=== PATIENT | female | born 1950 | race Caucasian/White ===

== ENCOUNTER 2017-03-09 15:32 | Inpatient (IN) ==
[~2017-03-09 15:32] MED LIST: Aminoglycoside Consult 1 EACH MC ONE
[2017-03-09 16:40] LABS: VBG PH 7.37 pH Units (7.32-7.42)
[2017-03-09 16:41] LABS: Red Cell Distribution Width 14.7 % (11.5-14.5)
[2017-03-09 16:43] LABS: Hematocrit 37.6 % (35.3-44.9); Mean Corpuscular HGB Conc 31.9 g/dL (31.6-35.5); Mean Corpuscular Hemoglobin 29.1 pg (28.0-33.3); Mean Platelet Volume 11.1 fL (9.4-12.4); Nucleated Red Blood Cells 0.1 /100 WBC (0); Platelet Count 146 K/mcL (140-400); Red Blood Count 4.13 M/mcL (3.82-4.97)
[2017-03-09 16:46] LABS: INR 1.1; Prothrombin Time 11.9 Seconds (9.4-12.1)
[2017-03-09] MEDS ORDERED: Levofloxacin 750 MG/150 ML 750 MG/150 ML BAG IVPB ONE (16:46)
[2017-03-09 16:58] LABS: Albumin 3.7 g/dL (3.5-5.0); Albumin/Globulin Ratio 1.2 (1.1-2.2); Bilirubin,Direct 0.2 mg/dL (0.0-0.5); Bilirubin,Indirect 0.3 mg/dL (0.0-1.2); Bilirubin,Total 0.5 mg/dL (0.2-1.2); Calcium 9.7 mg/dL (8.6-10.8); Magnesium 1.1 mg/dL (1.6-2.6); Phosphorous 1.9 mg/dL (2.3-4.7); Potassium 4.4 mEq/L (3.5-4.5); Total Protein 6.7 g/dL (6.0-8.3)
[2017-03-09 17:02] LABS: Lymphocytes # 20.4 K/mcL (0.6-4.6); Monocytes # 0.6 K/mcL (0.0-1.3); Neutrophils # 10.8 K/mcL (1.6-8.9); Platelet Estimate Normal (Normal)
[2017-03-09] MEDS: 0.9 % Sodium Chloride 1,000 ML IVC SCH ×4 (17:18→21:42)
--- NOTE | 2017-03-09 17:22 | Emergency Department Note ---
Disposition Clinical Impression: Severe sepsis Community acquired pneumonia Qualifiers: Laterality: right Lung location: middle lobe of lung Qualified Code(s): J18.1 - Lobar pneumonia, unspecified organism Disposition: Admitted As Inpatient Condition: Critical Referrals: Mariaelena Vasquez CNP [Primary Care Provider] - Forms: ED Satisfaction Letter Time of Disposition: 17:39 Nausea/Vomiting/Diarrhea HPI - General Chief complaint: ED Nausea/Vomiting/Diarrhea Stated complaint: N/V/D Time Seen by Provider: 03/09/17 15:36 Source: patient Mode of arrival: EMS Limitations: no limitations Nursing Notes Reviewed: Yes Vital Signs Reviewed: Yes - History of Present Illness HPI Narrative: 66-year-old female history of insulin-dependent diabetes, hyperlipidemia, CLL, presents with several days of worsening productive cough, today she went to [facility] urgent care she is having productive cough associated with nausea and vomiting. She has generalized abdominal pain that she describes as 3 out of 10 and cramping. She states that the urgent care told her to come to the emergency department to be evaluated because she had a high fever and they are worried that she was very ill. Patient states that she has noted known history of DKA. She thinks that she has the flu. She describes generalized muscle aches, she endorses some intermittent chest discomfort, abdominal pain, myalgias. She reports nausea with vomiting. She denies hemoptysis or leg swelling, denies hematuria hematochezia or melena. Pt Subjective Complaint: nausea, vomiting Onset (ago): day(s) Description of emesis: food contents Associated Abdominal Pain: Yes If pain, Location of pain: diffuse Severity: mild Severity scale (1-10): 3 Quality: cramping Associated symptoms: Reports: denies other symptoms, nausea/vomiting. Denies: myalgias, chest pain, cough, diaphoresis - Related Data Home Medications Medication Instructions Recorded Confirmed Aspirin 81 mg PO DAILY 04/05/15 05/29/16 Atorvastatin [Lipitor] 40 mg PO DAILY 04/05/15 05/29/16 Enalapril Maleate [Vasotec] 5 mg PO DAILY 04/05/15 05/29/16 Insulin LISPRO [HumaLOG] 0 units SQ TIDAC 04/05/15 05/29/16 Pioglitazone HCl [Actos] 15 mg PO DAILY 04/05/15 05/29/16 Topiramate [Topamax] 25 mg PO BID 08/23/15 05/29/16 Ergocalciferol (VITAMIN D2) 50,000 unit PO WE 02/28/16 05/29/16 [Vitamin D2 (50,000 UNIT)] Loperamide HCl [Imodium A-D] 2 mg PO AD PRN 02/28/16 05/29/16 Primidone [Mysoline] 50 mg PO HS 02/28/16 05/29/16 Ascorbic Acid [Vitamin C] 500 mg PO DAILY 03/06/16 05/29/16 Cyanocobalamin (Vitamin B-12) 100 mcg PO DAILY 03/06/16 05/29/16 [Vitamin B-12] Ferrous Sulfate [Iron] 325 mg PO DAILY 03/06/16 05/29/16 Fluticasone Propionate Nasal 2 spray NS DAILY 11/26/16 11/26/16 [Flonase] Insulin Glargine/Lixisenatide 54 unit SQ DAILY 11/26/16 11/26/16 [Soliqua 100 Unit-33 Mcg/ml Pen] Loratadine [Claritin] 10 mg PO DAILY 11/26/16 11/26/16 Magnesium Chloride [Slow-Mag] 84 mg PO DAILY 11/26/16 11/26/16 Metoprolol [Lopressor] 25 mg PO DAILY 11/26/16 11/26/16 Pregabalin [Lyrica] 75 mg PO TID 11/26/16 11/26/16 Tramadol HCl [Ultram] 50 mg PO TID 11/26/16 11/26/16 Previous Rx's Medication Instructions Recorded Folic Acid 1 mg PO DAILY #30 tablet 09/18/15 Mag Hydrox/Al Hydrox/Simeth 30 ml PO Q4H PRN #1 kit 03/12/16 [Maalox] Omeprazole [PriLOSEC] 40 mg PO DAILY@0630 #20 capsule. 03/12/16 Allergies Allergy/AdvReac Type Severity Reaction Status Date / Time metformin Allergy Nausea Verified 03/09/17 15:34 Sulfa (Sulfonamide Allergy Nausea Verified 03/09/17 15:34 Antibiotics) sulfamethoxazole Allergy Nausea Verified 03/09/17 15:34 [From Bactrim] trimethoprim [From Bactrim] Allergy Nausea Verified 03/09/17 15:34 All systems ED: reviewed and negative except as stated. Review of Systems: As Per HPI Constitutional: Denies: fever, chills Eyes: Denies: eye pain ENT ED: Denies: ear pain Cardiovascular: Reports: as per HPI, chest pain Respiratory: Reports: cough Gastrointestinal: Reports: as per HPI, abdominal pain, nausea, vomiting Genitourinary: Reports: urgency Musculoskeletal: Denies: back pain Integumentary: Denies: rash Neurological: Denies: headache Past Medical History - Past Medical History Attestation: Yes The following information was validated with the patient. 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 history: Reports: no ASSOCIATE PROFESSOR OF ANTHROPOLOGY history - Social History Smoking Status: Never smoker Smokeless Tobacco Status: No Alcohol use: Reports: none Drug use: Reports: none Physical Exam Constitutional: Obese female appears diaphoretic and uncomfortable, Eyes: PERRLA, sclera anicteric ENT & Mouth: MM dry Neck: normal inspection, neck is supple Resp: CTA bilaterally, no resp distress CV: RRR, no m/g/r GI: normal inspection, soft, no guarding or rigidity Neuro: A&O3, CNII-XII grossly intact, FIORE Skin: on limited exam, skin intact with no rashes or lesions - General Limitations: no limitations General appearance: alert, in no apparent distress Course Course Narrative: 66-year-old insulin-dependent diabetic with acute onset of productive cough for the last couple days worsening today so she with nausea and vomiting, concern is for sepsis given that she is tachycardic tachypneic and febrile, she does have a history of CLL as well, so I ordered a full septic workup 3 L bolus initially and will plan to start respiratory antibiotics after blood cultures and lactate - Reevaluation(s) Reevaluation #1: Patient had evidence of right middle lobe pneumonia, suspect immediately required related to stress with the hospitalist Dr. Foss recommended broadening the patient's antibodies at this time, patient will be given Vanc and Levaquin, the Levaquin was already started will add additional antibiotics at the hospitalist recommendation though we suspect community-acquired pneumonia. Patient's lactate was elevated greater than 2 meets criteria for severe sepsis technically she has no evidence of hypotension. Time: 17:38 Reevaluation #2: Severe Sepsis/Septic Shock Re-Evaluation: I reassessed the patient's volume status and tissue perfusion, performing a full cardiopulmonary exam, skin examination, peripheral pulses evaluation, I assessed their vital signs and capillary refill, and based on my findings found that the patient was volume responsive to their 30mL/kg crystalloid bolus. Time: 17:38 Vital Signs Temperature 101.2 F H 03/09/17 15:34 Pulse Rate 122 03/09/17 15:34 Respiratory Rate 24 03/09/17 15:34 Blood Pressure 112/84 03/09/17 15:34 O2 Sat by Pulse Oximetry 96 03/09/17 15:34 Temperature 101.2 F H 03/09/17 15:34 Pulse Rate 122 03/09/17 15:34 Respiratory Rate 24 03/09/17 15:34 Blood Pressure 112/84 03/09/17 15:34 O2 Sat by Pulse Oximetry 97 03/09/17 17:16 Oxygen Delivery Oxygen Delivery Nasal Cannula Nausea/Vomiting/Diarrhea - Lab Data Result diagrams: 03/09/17 16:31 03/09/17 16:31 Lab Results 03/09/17 03/09/17 03/09/17 Range/Units 16:31 16:31 16:31 WBC 31.8 H* (4.3-11.1) K/mcL RBC 4.13 (3.82-4.97) M/mcL Hgb 12.0 (11.5-15.4) g/dL Hct 37.6 (35.3-44.9) % MCV 91.0 (83.0-100.0) fL MCH 29.1 (28.0-33.3) pg MCHC 31.9 (31.6-35.5) g/dL RDW 14.7 H (11.5-14.5) % Plt Count 146 (140-400) K/mcL MPV 11.1 (9.4-12.4) fL Seg Neutrophils % 34.0 % Lymphocytes % 64.0 % Monocytes % 2.0 % Neutrophils # 10.8 H (1.6-8.9) K/mcL Lymphocytes # 20.4 H (0.6-4.6) K/mcL Monocytes # 0.6 (0.0-1.3) K/mcL Nucleated RBCs/100 WBC 0.1 H (0) /100 WBC Platelet Estimate Normal (Normal) PT 11.9 (9.4-12.1) Seconds INR 1.1 APTT 28.0 (26.0-36.0) Seconds VBG pH (7.32-7.42) pH Units VBG pCO2 (41-51) mmHg VBG pO2 (25-40) mmHg VBG HCO3 (21-27) mEq/L Sodium 140 (136-145) mEq/L Potassium 4.4 (3.5-4.5) mEq/L Chloride 105 (98-109) mEq/L Carbon Dioxide 24 (19-29) mEq/L BUN 20 (7-20) mg/dL Creatinine 1.15 H (0.57-1.11) mg/dL Est GFR ( Amer) 57 L (> 60) Est GFR (Non-Af Amer) 47 L (> 60) BUN/Creatinine Ratio 17 (6-26) Glucose 186 H (70-99) mg/dL Calculated Osmolality 297 (280-300) Lactic Acid (0.5-2.2) mmol/L Calcium 9.7 (8.6-10.8) mg/dL Phosphorus 1.9 L (2.3-4.7) mg/dL Magnesium 1.1 L (1.6-2.6) mg/dL Total Bilirubin 0.5 (0.2-1.2) mg/dL Direct Bilirubin 0.2 (0.0-0.5) mg/dL Indirect Bilirubin 0.3 (0.0-1.2) mg/dL AST 10 (5-34) Units/L ALT 10 (0-55) Units/L Alkaline Phosphatase 101 (38-126) Units/L Troponin I (0-0.03) ng/mL Serum Total Protein 6.7 (6.0-8.3) g/dL Albumin 3.7 (3.5-5.0) g/dL Globulin 3.0 (2.4-3.5) g/dL Albumin/Globulin Ratio 1.2 (1.1-2.2) Lipase 20 (8-78) Units/L Beta-Hydroxybutyric Acd (0.02-0.27) mmol/L Urine Color (Yellow) Urine Clarity (Clear) Urine pH (5.0-8.0) pH Units Ur Specific [place] (1.010-1.025) Urine Protein (Neg-Trace) mg/dL Urine Glucose (UA) (Normal) mg/dL Urine Ketones (Negative) mg/dL Urine Blood (Negative) Urine Nitrite (Negative) Urine Bilirubin (Negative) Urine Urobilinogen (Normal) mg/dL Ur Leukocyte Esterase (Negative) Urine Microscopic RBC (0-3) per hpf Urine Microscopic WBC (0-3) per hpf Ur Squamous Epith Cells (None-Few) per lpf Urine Bacteria (None-Few) per hpf Hyaline Casts (None-Few) per lpf Ur Culture Indicated? (NO) 03/09/17 03/09/17 03/09/17 Range/Units 16:31 16:31 16:31 WBC (4.3-11.1) K/mcL RBC (3.82-4.97) M/mcL Hgb (11.5-15.4) g/dL Hct (35.3-44.9) % MCV (83.0-100.0) fL MCH (28.0-33.3) pg MCHC (31.6-35.5) g/dL RDW (11.5-14.5) % Plt Count (140-400) K/mcL MPV (9.4-12.4) fL Seg Neutrophils % % Lymphocytes % % Monocytes % % Neutrophils # (1.6-8.9) K/mcL Lymphocytes # (0.6-4.6) K/mcL Monocytes # (0.0-1.3) K/mcL Nucleated RBCs/100 WBC (0) /100 WBC Platelet Estimate (Normal) PT (9.4-12.1) Seconds INR APTT (26.0-36.0) Seconds VBG pH (7.32-7.42) pH Units VBG pCO2 (41-51) mmHg VBG pO2 (25-40) mmHg VBG HCO3 (21-27) mEq/L Sodium (136-145) mEq/L Potassium (3.5-4.5) mEq/L Chloride (98-109) mEq/L Carbon Dioxide (19-29) mEq/L BUN (7-20) mg/dL Creatinine (0.57-1.11) mg/dL Est GFR ( Amer) (> 60) Est GFR (Non-Af Amer) (> 60) BUN/Creatinine Ratio (6-26) Glucose (70-99) mg/dL Calculated Osmolality (280-300) Lactic Acid 2.6 H (0.5-2.2) mmol/L Calcium (8.6-10.8) mg/dL Phosphorus (2.3-4.7) mg/dL Magnesium (1.6-2.6) mg/dL Total Bilirubin (0.2-1.2) mg/dL Direct Bilirubin (0.0-0.5) mg/dL Indirect Bilirubin (0.0-1.2) mg/dL AST (5-34) Units/L ALT (0-55) Units/L Alkaline Phosphatase (38-126) Units/L Troponin I 0.00 (0-0.03) ng/mL Serum Total Protein (6.0-8.3) g/dL Albumin (3.5-5.0) g/dL Globulin (2.4-3.5) g/dL Albumin/Globulin Ratio (1.1-2.2) Lipase (8-78) Units/L Beta-Hydroxybutyric Acd 0.18 (0.02-0.27) mmol/L Urine Color (Yellow) Urine Clarity (Clear) Urine pH (5.0-8.0) pH Units Ur Specific [place] (1.010-1.025) Urine Protein (Neg-Trace) mg/dL Urine Glucose (UA) (Normal) mg/dL Urine Ketones (Negative) mg/dL Urine Blood (Negative) Urine Nitrite (Negative) Urine Bilirubin (Negative) Urine Urobilinogen (Normal) mg/dL Ur Leukocyte Esterase (Negative) Urine Microscopic RBC (0-3) per hpf Urine Microscopic WBC (0-3) per hpf Ur Squamous Epith Cells (None-Few) per lpf Urine Bacteria (None-Few) per hpf Hyaline Casts (None-Few) per lpf Ur Culture Indicated? (NO) 03/09/17 03/09/17 Range/Units 16:31 17:45 WBC (4.3-11.1) K/mcL RBC (3.82-4.97) M/mcL Hgb (11.5-15.4) g/dL Hct (35.3-44.9) % MCV (83.0-100.0) fL MCH (28.0-33.3) pg MCHC (31.6-35.5) g/dL RDW (11.5-14.5) % Plt Count (140-400) K/mcL MPV (9.4-12.4) fL Seg Neutrophils % % Lymphocytes % % Monocytes % % Neutrophils # (1.6-8.9) K/mcL Lymphocytes # (0.6-4.6) K/mcL Monocytes # (0.0-1.3) K/mcL Nucleated RBCs/100 WBC (0) /100 WBC Platelet Estimate (Normal) PT (9.4-12.1) Seconds INR APTT (26.0-36.0) Seconds VBG pH 7.37 (7.32-7.42) pH Units VBG pCO2 46 (41-51) mmHg VBG pO2 41 H (25-40) mmHg VBG HCO3 27 (21-27) mEq/L Sodium (136-145) mEq/L Potassium (3.5-4.5) mEq/L Chloride (98-109) mEq/L Carbon Dioxide (19-29) mEq/L BUN (7-20) mg/dL Creatinine (0.57-1.11) mg/dL Est GFR ( Amer) (> 60) Est GFR (Non-Af Amer) (> 60) BUN/Creatinine Ratio (6-26) Glucose (70-99) mg/dL Calculated Osmolality (280-300) Lactic Acid (0.5-2.2) mmol/L Calcium (8.6-10.8) mg/dL Phosphorus (2.3-4.7) mg/dL Magnesium (1.6-2.6) mg/dL Total Bilirubin (0.2-1.2) mg/dL Direct Bilirubin (0.0-0.5) mg/dL Indirect Bilirubin (0.0-1.2) mg/dL AST (5-34) Units/L ALT (0-55) Units/L Alkaline Phosphatase (38-126) Units/L Troponin I (0-0.03) ng/mL Serum Total Protein (6.0-8.3) g/dL Albumin (3.5-5.0) g/dL Globulin (2.4-3.5) g/dL Albumin/Globulin Ratio (1.1-2.2) Lipase (8-78) Units/L Beta-Hydroxybutyric Acd (0.02-0.27) mmol/L Urine Color Yellow (Yellow) Urine Clarity Clear (Clear) Urine pH 5.5 (5.0-8.0) pH Units Ur Specific [place] 1.020 (1.010-1.025) Urine Protein Negative (Neg-Trace) mg/dL Urine Glucose (UA) Normal (Normal) mg/dL Urine Ketones Negative (Negative) mg/dL Urine Blood Negative (Negative) Urine Nitrite Negative (Negative) Urine Bilirubin Negative (Negative) Urine Urobilinogen Normal (Normal) mg/dL Ur Leukocyte Esterase Small H (Negative) Urine Microscopic RBC 0-3 (0-3) per hpf Urine Microscopic WBC 3-5 H (0-3) per hpf Ur Squamous Epith Cells Many H (None-Few) per lpf Urine Bacteria None Seen (None-Few) per hpf Hyaline Casts None Seen (None-Few) per lpf Ur Culture Indicated? YES A (NO) - Radiology Data Radiology results reviewed: Yes I reviewed the patient's radiology results. Abdomen/Pelvis CT 03/09/17 15:52 IMPRESSION: Right middle lobe airspace disease, suspicious for early pneumonia Scattered mildly enlarged lymph nodes are seen, slightly increased along the left iliac chain but stable in size elsewhere, in keeping with the diagnosis of lymphoma. . Spleen remains mildly enlarged. D/ / Cole Zhao MD / Cole Zhao MD Interpreting Provider: Cole Zhao MD Chest X-Ray 03/09/17 15:52 IMPRESSION: 1. Cardiomegaly with mild vascular congestion. 2. Increased density involving the left lower lung zone likely due to overlapping shadows. D/ / Jerald Cherry MD / Jerald Cherry MD Interpreting Provider: Jerald Cherry MD - EKG Data EKG attestation: Yes I reviewed and interpreted this EKG. EKG shows normal: sinus rhythm Rate: tachycardia (114 bpm VA 133 QRS [address] segment elevations or depressions. Sinus tachycardia) [place]/QRS: normal Interpretation: no acute changes - Core Measures AMI Core Measures Followed: Yes Critical Care Time Critical Care Time: Yes Total Critical Care Time: 60 Attestation: The high probability of a clinically significant, sudden or life threatening deterioration of the [resp] system(s) required my full and direct attention, intervention and personal management. The aggregate critical care time was [60] minutes. This time is in addition to time spent performing reported procedures but includes the following: [X] Data Review and interpretation [X] Patient assessment and monitoring of vital signs [X] Documentation [X] Medication orders and management Attestation Statement - Attestation Attestation: I examined this patient and my medical decision-making was reviewed with the Resident Physician, Dr. Diaz. I agree with the documented findings, disposition and treatment plan as described except to the extent set forth below. Patient is a 66-year-old white female with a history of diabetes and CLL who presents to the emergency department with a 2 to three-day history of upper respiratory symptoms involving nasal congestion productive cough generalized malaise and fatigue and subjective fevers and chills. Patient states that she went to be evaluated at [facility] for her symptoms and on arrival was febrile, tachycardic and began having some nausea and vomiting in addition to her ongoing cough and upper respiratory symptoms. Patient was sent to the emergency department from the urgent care for further evaluation. On arrival to the ED patient was not having any signs of respiratory distress or conversational dyspnea. She was placed on manager transmission and continuous pulse ox abdominal oxygen was provided IV saline well was established and septic protocol was initiated in the ED based on fever and tachycardia. Patient's EKG did not show any evidence of ischemic changes, sinus tachycardia. Chest x-ray showed questionable changes in the left lower lobe but suspected shadowing. Patient's labs show an elevated white count at 31 although patient states her white count has been running in the high 20s to 30s in the past with her CLL. Patient underwent CT imaging of her abdomen and pelvis due to her abdominal complaints and vomiting, CT shows enlarged lymph nodes consistent with her CLL but no other acute process in the abdomen or pelvis. CT did show evidence of a right middle lobe pneumonia. She received appropriate fluid bolus for septic protocol, medications for nausea and vomiting, and IV antibiotics were started in the ED for suspected pneumonia. She will be treated for community-acquired pneumonia. Blood pressure has remained stable throughout her ED course. Case was discussed with the hospitalist who accepted patient for admission and requested additional antibiotic coverage with Levaquin. This was ordered and initiated in the ED. Patient's flu swab was negative. Patient agrees with admission to hospital for further evaluation and management of severe sepsis and community-acquired pneumonia.
[2017-03-09] MEDS ORDERED: Piperacillin/Tazobactam 3.375 GM in D5% in Water (Mini-Bag+) 100 ML IVPB ONE (17:33)
[2017-03-09] MEDS ORDERED: Vancomycin 1,000 MG in D5% in Water 250 ML IVPB ONE (17:33)
[2017-03-09 17:52] LABS: Bilirubin,Urine Negative (Negative); Blood,Urine Negative (Negative); Clarity,Urine Clear (Clear); Color,Urine Yellow (Yellow); Glucose,Urine (UA) Normal (Normal); Ketones,Urine Negative (Negative); Leukocyte Esterase,Urine Small (Negative); Nitrite,Urine Negative (Negative); PH,Urine 5.5 pH Units (5.0-8.0); Protein,Urine Negative (Neg-Trace); Urobilinogen,Urine Normal (Normal)
[2017-03-09 17:54] LABS: Bacteria,Urine None Seen per hpf (None-Few); Hyaline Casts,Urine None Seen per lpf (None-Few); RBC,Urine 0-3 per hpf (0-3); Squamous Epithelial Cell,Urine Many per lpf (None-Few)
--- NOTE | 2017-03-09 19:52 | Internal Med History&Physical ---
<Eric Heard - Last Filed: 03/09/17 21:13> Date of Encounter: 03/09/17 Time of Encounter: 19:51 Assessment and Plan (1) Severe sepsis Current visit: Yes Status: Acute 3 SIRS criteria Fever 101.2 F, HR 122, RR 24, WBC 31.8 Lactic acid 2.6 --> 1.[address] abd/plv reveals Right middle lobe airspace disease, suspicious for early pneumonia. CXR reveals cardiomegaly with mild vascular congestion and increased density involving the left lower lung zone likely due to overlapping shadows. Started on Levaquin, Vanc, and Zosyn Blood, urine, and sputum cultures pending. (2) Community acquired pneumonia Current visit: Yes Status: Acute CT abd/plv reveals Right middle lobe airspace disease, suspicious for early pneumonia. CXR reveals cardiomegaly with mild vascular congestion and increased density involving the left lower lung zone likely due to overlapping shadows. Started on Levaquin, Vanc, and Zosyn Sputum cultures pending. Duonebs and incentive spirometry Qualifiers: Laterality: right Lung location: middle lobe of lung Qualified Code(s): J18.1 - Lobar pneumonia, unspecified organism (3) Acute encephalopathy Current visit: Yes Status: Acute Secondary to Severe sepsis, LENORE Continue to monitor (4) LENORE (acute kidney injury) Current visit: No Status: Acute IVF. Avoid nephrotoxins Continue to monitor (5) DM2 (diabetes mellitus, type 2) Current visit: No Status: Chronic HGB a1c 7.1 on 03/02/17 Continue SSI Continue to monitor Qualifiers: Diabetes mellitus complication status: with kidney complications Diabetes mellitus complication detail: with chronic kidney disease Diabetes mellitus skilled nursing insulin use: with skilled nursing use Chronic kidney disease stage: stage 3 (moderate) Qualified Code(s): E11.22 - Type 2 diabetes mellitus with diabetic chronic kidney disease; N18.3 - Chronic kidney disease, stage 3 ( moderate); Z79.4 - technician terminal and 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 CT abd/plv reveals Right middle lobe airspace disease, suspicious for early pneumonia. Scattered mildly enlarged lymph nodes are seen, slightly increased along the left iliac chain but stable in size elsewhere, in keeping with the diagnosis of lymphoma. Spleen remains mildly enlarged. Continue to monitor (8) Obesity (BMI 30-39.9) Current visit: Yes Status: Acute Discussed diet modification and exercise (9) Hypomagnesemia Current visit: Yes Status: Acute Supplement Mag Continue to monitor (10) Hypophosphatemia Current visit: Yes Status: Acute Supplement Phos Continue to monitor (11) DVT prophylaxis Current visit: No Status: Acute Heparin SubQ TID Internal Medicine - H&P: HPI Chief complaint: SOB Admitted From: Home Plans for Post Hospital Care: Home History of present illness: Ms. Vargas is a 66 year old female insulin-dependent DM, CAD, HTN, hyperlipidemia, CLL, and obesity who presented from [facility] urgent care c/o fever, productive cough, myalgias, abdominal pain, chest pain, nausea, and vomiting since this AM. Abd pain is generalized, 3/10 severity, and described as a cramping sensation. Patient thinks that she has the flu. She is A&Ox3, but appears confused and has difficulty recalling the president's name. She denies chills, diarrhea, dysuria, rash, or leg edema. Past Med Surg Social Fam HX - Past Medical History Medical history: cancer, coronary artery disease, diabetes, hypertension, renal disease, other Psychiatric history: no psych history - Past Surgical History Surgical History: cholecystectomy, THERESE/BSO, other (left knee) - Social History Smoking Status: Never smoker Smokeless Tobacco Status: No Alcohol use: none Drug use: none - Family History Mother Living Status: Hx Family Endocrine Disorder: Yes Father Living Status: Hx Family Cardiac Disorders: Yes Hx Family Respiratory Disorders: No Hx Family Cancer: Yes Hx Family GI Disorders: Yes Hx Family Endocrine Disorder: Yes Hx Family Neuromuscular Disorders: No Hx Family Neurologic Disorders: Yes Hx Family HEENT Disorders: No Hx Family Autoimmune Disorders: No Internal Medicine - H&P: Meds Aspirin 81 mg PO DAILY 04/05/15 [History] Atorvastatin [Lipitor] 40 mg PO DAILY 04/05/15 [History] Enalapril Maleate [Vasotec] 5 mg PO DAILY 04/05/15 [History] Insulin LISPRO [HumaLOG] 0 units SQ TIDAC 04/05/15 [History] Topiramate [Topamax] 25 mg PO BID 08/23/15 [History] Folic Acid 1 mg PO DAILY #30 tablet 09/18/15 [Rx] Ergocalciferol (VITAMIN D2) [Vitamin D2 (50,000 UNIT)] 50,000 unit PO WE [History] Loperamide HCl [Imodium A-D] 2 mg PO QID PRN 02/28/16 [History] Primidone [Mysoline] 50 mg PO HS 02/28/16 [History] Ascorbic Acid [Vitamin C] 500 mg PO DAILY 03/06/16 [History] Cyanocobalamin (Vitamin B-12) [Vitamin B-12] 100 mcg PO DAILY 03/06/16 [History] Ferrous Sulfate [Iron] 325 mg PO DAILY 03/06/16 [History] Fluticasone Propionate Nasal [Flonase] 2 spray NS DAILY 11/26/16 [History] Insulin Glargine/Lixisenatide [Soliqua 100 Unit-33 Mcg/ml Pen] 60 unit SQ HS [History] Tramadol HCl [Ultram] 50 mg PO TID 11/26/16 [History] 3 Allergy/AdvReac Type Severity Reaction Status Date / Time metformin Allergy Nausea Verified 03/09/17 15:34 Sulfa (Sulfonamide Allergy Nausea Verified 03/09/17 15:34 Antibiotics) sulfamethoxazole Allergy Nausea Verified 03/09/17 15:34 [From Bactrim] trimethoprim [From Bactrim] Allergy Nausea Verified 03/09/17 15:34 All Systems PM: A 10-system review of systems was performed and is negative for pertinent findings except as documented above in the HPI. - Constitutional Constitutional: fatigue, fever(s), malaise, no chills, no weight gain, no weight loss - EENT Eyes: no change in vision Nose, mouth and throat: no nasal congestion, no sinus pressure - Cardiovascular Cardiovascular ROS IM: chest pain - Respiratory Respiratory: cough, dyspnea, change in phlegm color - Gastrointestinal Gastrointestinal: abdominal pain, nausea, vomiting, no diarrhea - Genitourinary Genitourinary: no dysuria, no urinary frequency, no urinary urgency - Integumentary Integumentary IM: no erythema, no rash - Neurological Neurological ROS: confusion, no numbness, no weakness - Psychiatric Psychiatric: no anxiety, no depression - Endocrine Endocrine IM: no polydipsia, no polyphagia, no polyuria - Constitutional Vitals: Temp Pulse Resp BP Pulse Ox 101.2 F H 94 18 115/64 97 03/09/17 15:34 03/09/17 18:24 03/09/17 19:13 03/09/17 19:13 03/09/17 18:24 General appearance: Present: cooperative, mild distress, pleasant, obese, answers questions appropriately - Head Head exam: Present: atraumatic, normal inspection, normocephalic - Eye Eye exam: Present: EOMI, PERRL - ENT ENT exam: Present: mucous membranes moist, normal oropharynx - Neck Neck exam general surgery: Present: normal inspection, supple. Absent: lymphadenopathy, tenderness - Respiratory Respiratory exam: Present: CTAB. Absent: rhonchi, wheezes - Cardiovascular Cardiovascular exam: Present: RRR, +S1, +S2 - GI/Abdominal GI/Abdominal exam: Present: normal bowel sounds, soft, tenderness (diffuse). Absent: distended, firm, guarding, rebound - Extremities Exam Extremities exam: Present: full ROM, normal capillary refill, pedal edema (1+), radial pulses palpable and symmetrical - Back Exam Back exam: Present: normal inspection, paraspinal tenderness, tenderness - Neurological Exam Neurological exam: Present: altered (slow to answer questions), oriented X3, strengths equal and symetr throughout. Absent: motor sensory deficit, speech deficit - Psychiatric Psychiatric exam: Present: flat affect, normal mood - Skin Skin exam: Present: dry, pallor, warm Internal Med - H&P Results - Labs CBC & Chem 7: 03/09/17 16:31 03/09/17 16:31 - EKG Data -: EKG Interpreted by Myself EKG shows normal: sinus rhythm Rate: tachycardia (114 bpm DC 133 QRS [address] segment elevations or depressions) <Brock Nguyen - Last Filed: 03/09/17 22:47> Date of Encounter: 03/09/17 Internal Medicine - H&P: HPI History of present illness: Ms. Vargas is a 66 year old female All Systems PM: A 10-system review of systems was performed and is negative for pertinent findings except as documented above in the HPI. - Constitutional Vitals: Temp Pulse Resp BP Pulse Ox 100.6 F H 94 20 109/57 98 03/09/17 21:33 03/09/17 21:33 03/09/17 21:33 03/09/17 21:33 03/09/17 21:33 Internal Med - H&P Results - Labs CBC & Chem 7: 03/09/17 16:31 03/09/17 16:31 - Attending Attestation I have independently seen and examined this patient on 03/09/2017. I have reviewed the plan of care of the patient, and the resident physician. The documentation of the resident physician reflects plan of care. 66-year-old female with history of CLL not on treatment, hypertension, coronary artery disease and diabetes mellitus. She presented with abdominal symptoms including abdominal pain, diarrhea, nausea and vomiting. She also had fairly high-grade fevers and myalgias. Physical exam reveals fever with maximum temperature 101.2 she is tachycardic heart rate 122 she is tachypneic with respiratory rates ranging from 18-24. She is slow to speak, but is oriented 3. She moves her extremities equally and spontaneously. She has no speech deficits and she has no facial paralysis. Her anterior chest auscultation is clear bilaterally. Abdomen is soft and nontender. She has no pedal edema. Labs and imaging reviewed leukocytosis with left shift, AKA creatinine 1.15 her baseline is 0.7. Lactic acidosis on admission 2.8, improved to 1.8 with hydration. Her urinalysis is 30. Coordination Panelli is normal and her recent A1c was 7.1. Abdominal CT reveals a right middle lobe pneumonia. Assessment #1 severe sepsis #2 lactic acidosis #3 AKA #4 is acute encephalopathy from sepsis #5 CLL #6 hypertension #7 diabetes mellitus #8 enteritis Plan is to continue current antibiotics. Repeat lactate. Gentle hydration. Broad-spectrum coverage, send stool for C. difficile if persistent. Flu swab is negative. Send sputum and blood cultures. Send urine for Legionella and streptococcal antigen. Rest of details as in the resident physicians documentation.
[2017-03-09] MEDS ORDERED: D5% in Water 1,000 ML IVC PRN (20:14)
[2017-03-09] MEDS ORDERED: Dextrose Gel 15 GM PO PRN ×2 (20:14)
[2017-03-09] MEDS ORDERED: *HR* Dextrose 50 % in Water (Syg) 50 ML SYRINGE IVP PRN (20:14)
[2017-03-09] MEDS ORDERED: Magnesium Sulfate 2 GM in D5% in Water 100 ML IVPB ONE (20:16)
[2017-03-09] MEDS ORDERED: Naloxone 0.4 MG/ML INJ IVP PRN (20:41)
[2017-03-09] MEDS ORDERED: Vancomycin (wt based) 1,000 MG VIAL IVPB SCH (21:00)
[2017-03-09] MEDS: Topiramate 25 MG TABLET PO SCH (21:37)
[2017-03-09] MEDS: Primidone 50 MG TABLET PO SCH (21:37)
[2017-03-09] MEDS: *HR* Heparin 5,000 UNIT/ML VIAL SQ SCH (21:50)
[2017-03-09] MEDS: Insulin LISPRO 300 UNITS/3 ML VIAL SQ SCH (22:00)
[2017-03-09] MEDS ORDERED: Vancomycin 750 MG in D5% in Water 250 ML IVPB ONE (22:00)
[2017-03-09] MEDS: Insulin DETEMIR 100 UNIT/ML X5UNITS SQ SCH (22:00)
[2017-03-09] MEDS: Ipratropium/Albuterol Neb 3 ML IH SCH (23:39)
[2017-03-10] MEDS: Piperacillin/Tazobactam 3.375 GM in D5% in Water (Mini-Bag+) 100 ML IVPB SCH ×2 (00:26→08:58)
[2017-03-10] MEDS: *HR* Morphine 2 MG/ML SYRINGE IVP PRN ×4 (02:20→22:38)
[2017-03-10] MEDS: Nitroglycerin 0.4 MG TAB.SUBL SL PRN ×2 (03:01→03:13)
[2017-03-10] MEDS: Ipratropium/Albuterol Neb 3 ML IH SCH ×5 (03:35→20:37)
[2017-03-10 04:01] LABS: Hematocrit 30.5 % (35.3-44.9); Mean Corpuscular HGB Conc 31.5 g/dL (31.6-35.5); Nucleated Red Blood Cells 0.1 /100 WBC (0)
[2017-03-10 04:03] LABS: Hemoglobin 9.6 g/dL (11.5-15.4); Mean Corpuscular Hemoglobin 28.7 pg (28.0-33.3); Mean Corpuscular Volume 91.3 fL (83.0-100.0); Mean Platelet Volume 11.3 fL (9.4-12.4); Platelet Count 131 K/mcL (140-400); Red Blood Count 3.34 M/mcL (3.82-4.97); Red Cell Distribution Width 14.9 % (11.5-14.5)
[2017-03-10 04:17] LABS: BUN/Creatinine Ratio 18 (6-26); Blood Urea Nitrogen 19 mg/dL (7-20); Calcium 8.3 mg/dL (8.6-10.8); Carbon Dioxide 21 mEq/L (19-29); Chloride 106 mEq/L (98-109); Glucose 197 mg/dL (70-99); Osmolality,Calculated 294 (280-300); Sodium 138 mEq/L (136-145); eGFR For African Americans > 60 (> 60); eGFR For Non-African Americans 51 (> 60)
[2017-03-10 05:28] LABS: Lymphocytes # 21.5 K/mcL (0.6-4.6); Monocytes # 0.6 K/mcL (0.0-1.3); Neutrophils # 7.8 K/mcL (1.6-8.9); Platelet Estimate Normal (Normal)
[2017-03-10 05:29] LABS: Microcytosis Present (Not Present); Reactive Lymphocytes Present (Not Present); Smudge Cells Present (Not Present)
[2017-03-10] MEDS: Famotidine 20 MG/2 ML VIAL IVP SCH ×2 (08:59→17:18)
[2017-03-10] MEDS: *HR* Heparin 5,000 UNIT/ML VIAL SQ SCH ×3 (08:59→23:59)
[2017-03-10] MEDS: Ascorbic Acid 500 MG TABLET PO SCH (09:00)
[2017-03-10] MEDS: Topiramate 25 MG TABLET PO SCH ×2 (09:00→23:59)
[2017-03-10] MEDS: Aspirin 81 MG TAB.CHEW PO SCH (09:00)
[2017-03-10] MEDS: Folic Acid 1 MG TABLET PO SCH (09:00)
[2017-03-10] MEDS: Cyanocobalamin (B-12) 1,000 MCG TABLET PO SCH (09:00)
[2017-03-10] MEDS: 0.9 % Sodium Chloride 1,000 ML IVC SCH ×2 (09:01→19:47)
[2017-03-10] MEDS: Fluticasone Propionate Nasal 50 MCG/SPRAY BOTTLE NS SCH (09:02)
[2017-03-10] MEDS: Insulin LISPRO 300 UNITS/3 ML VIAL SQ SCH ×6 (09:03→17:19)
[2017-03-10] MEDS ORDERED: Vancomycin 1,250 MG in D5% in Water 250 ML IVPB SCH (11:00)
[2017-03-10] MEDS ORDERED: Ipratropium/Albuterol Neb 3 ML IH PRN (13:58)
[2017-03-10] MEDS: Levofloxacin 750 MG/150 ML 750 MG/150 ML BAG IVPB SCH (17:20)
--- NOTE | 2017-03-10 19:15 | Electrocardiograph Report ---
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
--- NOTE | 2017-03-10 20:25 | Electrocardiograph Report ---
[place] [id number] Test Date: 2017-03-10 Pat Name: Carmen Vargas Department: 111 Room: 2N8 Gender: F Photograph Editor: [facility] : 1950 Requested By: Paul Robledo Order Number: [id number] Reading MD: Rosa Maria Cohn Measurements Intervals [place] Rate: 89 P: 73 NC: 141 QRS: 44 QRSD: 105 T: 47 QT: 371 QTc: 417 Interpretive Statements SINUS RHYTHM LOW QRS VOLTAGE IN PRECORDIAL LEADS Electronically Signed On 03-10-2017 20:24:36 EDT by Rosa Maria Cohn
--- NOTE | 2017-03-10 21:45 | Event Note ---
Date of Encounter: 03/10/17 Time of Encounter: 11:40 I examined this patient and my medical decision-making was reviewed with the Resident Physician on 03/10/17. I agree with the documented findings, disposition and treatment plan as described except to the extent set forth below. Please see progress note of today. Ms. Vargas is currently admitted for sepsis related to pneumonia. She remains moderate to high risk due to potential for worsening respiratory status. Ms Vargas feels somewhat better. Less confused. WBC still elevated but has CLL. No fever or chills. Exam Alert. Comfortable Mucus membranes dry Heart reg No wheeze Abd soft I/P 1. Hypoxia 2. Pneumonia 3. Hypomagnesemia - replace 4. Toxic encephalopathy related to infection 5. DM 6. CAD 7. HTN 8. CLL Further diagnoses and plan per progress note of today.
--- NOTE | 2017-03-10 23:30 | Internal Med Progress Note ---
<Nikky Harris - Last Filed: 03/10/17 23:49> Date of Encounter: 03/10/17 Time of Encounter: 10:00 - Assessment and plan (1) Acute encephalopathy Current Visit: Yes Status: Resolved Assessment and plan: Likely secondary to Severe sepsis secondary to CAP - Appears to be resolved, unsure of baseline. - Treatment as below. (2) Severe sepsis Current Visit: Yes Status: Resolved Assessment and plan: - Sepsis with lactic acid of 2.6 in ED, no longer meeting SIRS criteria. LA down to 1.8 most recently. - Secondary to PNA in right middle lobe as suggestive on CT abd/pelvis in ED. - Discontinue vanc/zosyn, continue levaquin (3) Community acquired pneumonia Current Visit: Yes Status: Acute Assessment and plan: - Right middle lobe pneumonia suggested on CT abd/pelvis - patient clinically improving. - Continue levaquin. Will discontinue vanc/zosyn at this time. - Afebrile, WBC chronically elevated in the setting of CLL. Qualifiers: Laterality: right Lung location: middle lobe of lung Qualified Code(s): J18.1 - Lobar pneumonia, unspecified organism (4) DM2 (diabetes mellitus, type 2) Current Visit: No Status: Chronic Assessment and plan: - BS of 197 most recently. - A1c of 7.1% - Sliding scale insulin. Levemir basal insulin. 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 Qualifiers: Hypertension type: essential hypertension Qualified Code(s): I10 - Essential (primary) hypertension (6) CLL (chronic lymphocytic leukemia) Current Visit: No Status: Chronic Assessment and plan: - Chronically elevated white count, reportedly in 20s. Most recent in 30s. - Continue treatment as outpatient. (7) Hypomagnesemia Current Visit: Yes Status: Acute Assessment and plan: Mg most recently 1.1 - Will monitor and replace as necessary (8) Hypophosphatemia Current Visit: Yes Status: Acute Assessment and plan: - Phos most recently 1.9 - Will monitor and replace as necessary (9) CAD (coronary artery disease) Current Visit: No Status: Acute Assessment and plan: - Stable, no complaints of cardiac chest pain - Troponin negative x4 - Continue home ASA, lipitor Qualifiers: Coronary Disease-Associated Artery/Lesion type: [place] artery [place] vs. transplanted heart: [place] heart Associated angina: without angina Qualified Code(s): I25.10 - Atherosclerotic heart disease of [place] coronary artery without angina pectoris (10) DVT prophylaxis Current Visit: No Status: Acute Assessment and plan: Heparin 5000 units SubQ - Time Spent With Patient 25 - 35 minutes - Subjective Interval history: Patient was seen and examined at bedside. Breathing is improved from yesterday. She states she feels "ok". She still admits to midline chest pain exacerbated with cough. She denies any symptoms of fevers, chills. - Constitutional Vitals: Temp Pulse Resp BP Pulse Ox 98.6 F 88 16 130/66 94 03/10/17 19:52 03/10/17 19:52 03/10/17 20:37 03/10/17 19:52 03/10/17 20:37 General appearance: Present: cooperative, pleasant, obese, answers questions appropriately. Absent: mild distress - Head Head exam: Present: atraumatic, normal inspection, normocephalic - Respiratory Respiratory exam: Present: rales. Absent: respiratory distress, rhonchi, wheezes, tachypnea - Cardiovascular Cardiovascular exam: Present: RRR, +S1, +S2. Absent: diastolic murmur, systolic murmur - GI/Abdominal GI/Abdominal exam: Present: hypoactive bowel sounds, normal bowel sounds, soft, tenderness (diffuse). Absent: no peritoneal signs - Extremities Exam Extremities exam: Present: normal inspection - Neurological Exam Neurological exam: Present: oriented X3 - Psychiatric Psychiatric exam: Present: normal affect, normal mood Internal Medicine: Result - Labs CBC & Chem 7: 03/10/17 03:49 03/10/17 03:49 Labs: Short CBC 03/10/17 Range/Units 03:49 WBC 29.9 H (4.3-11.1) K/mcL Hgb 9.6 L D (11.5-15.4) g/dL Hct 30.5 L (35.3-44.9) % Plt Count 131 L (140-400) K/mcL Neutrophils # 7.8 (1.6-8.9) K/mcL BMP 03/10/17 03:49 Sodium 138 Potassium 4.0 Chloride 106 Carbon Dioxide 21 BUN 19 Creatinine 1.08 Glucose 197 H Calcium 8.3 L Cardiac Enzymes 03/10/17 03/10/17 Range/Units 03:49 09: Troponin I 0.02 0.00 (0-0.03) ng/mL - ABG Interpretation ABG results: PT/INR, D-dimer PT 11.9 Seconds (9.4-12.1) 03/09/17 16:31 Consult Discharge Plan - Plan Referrals: Mariaelena Vasquez, GEOR[place]IANA [Primary Care Provider] - 03/20/17 2:20 pm <Paul Robledo - Last Filed: 03/11/17 08:48> Date of Encounter: 03/10/17 - Constitutional Vitals: Temp Pulse Resp BP Pulse Ox 97.5 F L 88 20 137/66 95 03/11/17 07:15 03/11/17 07:15 03/11/17 07:35 03/11/17 07:15 03/11/17 07:35 Internal Medicine: Result - Labs CBC & Chem 7: 03/11/17 03:38 03/11/17 03:38 Labs: Short CBC 03/11/17 Range/Units 03:38 WBC 16.3 H (4.3-11.1) K/mcL Hgb 9.1 L (11.5-15.4) g/dL Hct 29.5 L (35.3-44.9) % Plt Count 103 L (140-400) K/mcL Neutrophils # 5.2 (1.6-8.9) K/mcL BMP 03/11/17 03:38 Sodium 141 Potassium 4.1 Chloride 110 H Carbon Dioxide 23 BUN 16 Creatinine 0.97 Glucose 244 H Calcium 8.3 L Cardiac Enzymes 03/10/17 Range/Units 09: Troponin I 0.00 (0-0.03) ng/mL - ABG Interpretation ABG results: PT/INR, D-dimer PT 11.9 Seconds (9.4-12.1) 03/09/17 16:31 - Attending Attestation I examined this patient and my medical decision-making was reviewed with the Resident Physician on 03/10/17. I agree with the documented findings, disposition and treatment plan as described except to the extent set forth below. Please see event note from this date.
[2017-03-10] MEDS: Ondansetron 4 MG/2 ML VIAL IVP PRN (23:59)
[2017-03-10] MEDS: Primidone 50 MG TABLET PO SCH (23:59)
[2017-03-10] MEDS: Insulin DETEMIR 100 UNIT/ML X5UNITS SQ SCH (23:59)
[2017-03-11] MEDS: Insulin LISPRO 300 UNITS/3 ML VIAL SQ SCH ×8 (00:08→21:51)
[2017-03-11] MEDS: Ipratropium/Albuterol Neb 3 ML IH SCH ×7 (00:33→23:55)
[2017-03-11] MEDS: *HR* Morphine 2 MG/ML SYRINGE IVP PRN ×4 (01:37→19:07)
[2017-03-11] MEDS: Acetaminophen 325 MG TABLET PO PRN (03:58)
[2017-03-11 04:02] LABS: Basophils # 0.1 K/mcL (0.0-0.2); Basophils % 0.3 %; Eosinophils # 0.1 K/mcL (0.0-0.6); Eosinophils % 0.6 %; Hematocrit 29.5 % (35.3-44.9); Hemoglobin 9.1 g/dL (11.5-15.4); Immature Granulocytes % 0.9 % (0-4); Lymphocytes # 10.3 K/mcL (0.6-4.6); Lymphocytes % 63.2 %; Mean Corpuscular HGB Conc 30.8 g/dL (31.6-35.5); Mean Corpuscular Hemoglobin 28.3 pg (28.0-33.3); Mean Corpuscular Volume 91.6 fL (83.0-100.0); Mean Platelet Volume 11.4 fL (9.4-12.4); Monocytes # 0.5 K/mcL (0.0-1.3); Neutrophils # 5.2 K/mcL (1.6-8.9); Platelet Count 103 K/mcL (140-400); Red Blood Count 3.22 M/mcL (3.82-4.97)
[2017-03-11 04:18] LABS: BUN/Creatinine Ratio 16 (6-26); Blood Urea Nitrogen 16 mg/dL (7-20); Calcium 8.3 mg/dL (8.6-10.8); Carbon Dioxide 23 mEq/L (19-29); Chloride 110 mEq/L (98-109); Glucose 244 mg/dL (70-99); Magnesium 1.6 mg/dL (1.6-2.6); Osmolality,Calculated 301 (280-300); Potassium 4.1 mEq/L (3.5-4.5); Sodium 141 mEq/L (136-145); eGFR For African Americans > 60 (> 60); eGFR For Non-African Americans 58 (> 60)
[2017-03-11 04:32] LABS: Platelet Estimate Slight Decrease (Normal); Reactive Lymphocytes Present (Not Present); Smudge Cells Present (Not Present)
[2017-03-11] MEDS: 0.9 % Sodium Chloride 1,000 ML IVC SCH (05:16)
[2017-03-11] MEDS: *HR* Heparin 5,000 UNIT/ML VIAL SQ SCH ×3 (06:25→21:50)
[2017-03-11] MEDS: Famotidine 20 MG/2 ML VIAL IVP SCH ×2 (06:25→16:41)
[2017-03-11] MEDS ORDERED: *HR* Morphine 2 MG/ML SYRINGE IVP ONE (06:41)
[2017-03-11] MEDS: Ondansetron 4 MG/2 ML VIAL IVP PRN ×3 (07:29→23:43)
[2017-03-11] MEDS: Aspirin 81 MG TAB.CHEW PO SCH (08:03)
[2017-03-11] MEDS: Folic Acid 1 MG TABLET PO SCH (08:03)
[2017-03-11] MEDS: Topiramate 25 MG TABLET PO SCH ×2 (08:03→21:50)
[2017-03-11] MEDS: Cyanocobalamin (B-12) 1,000 MCG TABLET PO SCH (08:03)
[2017-03-11] MEDS: Ascorbic Acid 500 MG TABLET PO SCH (08:03)
[2017-03-11] MEDS: Fluticasone Propionate Nasal 50 MCG/SPRAY BOTTLE NS SCH (08:10)
[2017-03-11] MEDS: Nitroglycerin 0.4 MG TAB.SUBL SL PRN ×3 (13:01→13:19)
[2017-03-11] MEDS ORDERED: Ketorolac 30 MG/ML VIAL IVP ONE (13:22)
[2017-03-11] MEDS ORDERED: Ketorolac 30 MG/ML VIAL IVP STA (13:27)
[2017-03-11 15:59] LABS: Hematocrit 31.4 % (35.3-44.9); Hemoglobin 9.6 g/dL (11.5-15.4)
[2017-03-11] MEDS: traMADol 50 MG TABLET PO PRN ×2 (16:41→23:35)
[2017-03-11] MEDS: Levofloxacin 750 MG/150 ML 750 MG/150 ML BAG IVPB SCH (16:42)
[2017-03-11] MEDS: Primidone 50 MG TABLET PO SCH (21:50)
--- NOTE | 2017-03-11 21:53 | Internal Med Progress Note ---
<Nikky Harris - Last Filed: 03/11/17 21:44> Date of Encounter: 03/11/17 Time of Encounter: 09:00 - Assessment and plan (1) Acute encephalopathy Current Visit: Yes Status: Resolved Assessment and plan: Likely secondary to Severe sepsis secondary to CAP - Appears to be resolved, unsure of baseline. - Treatment as below. (2) Severe sepsis Current Visit: Yes Status: Resolved Assessment and plan: - Sepsis with lactic acid of 2.6 in ED, no longer meeting SIRS criteria. LA down to 1.8 most recently. - Secondary to PNA in right middle lobe as suggestive on CT abd/pelvis in ED. - continue levaquin (day 3) (3) Anemia Current Visit: Yes Status: Acute Assessment and plan: Hgb decrease 12, 9.6, 9.1 Possible etiologies: dilutional, anemia of chronic disease, active blood loss -IV fluids stopped -FOBT ordered. Pt's most recent colonoscopy apparently showed some polyps and was told to f/u in 3-5 years -reassess CBC w/ morning labs Qualifiers: Anemia type: unspecified type Qualified Code(s): D64.9 - Anemia, unspecified (4) Community acquired pneumonia Current Visit: Yes Status: Acute Assessment and plan: - Right middle lobe pneumonia suggested on CT abd/pelvis - patient clinically improving. - Continue levaquin (day 3) - Afebrile, WBC chronically elevated in the setting of CLL. Qualifiers: Laterality: right Lung location: middle lobe of lung Qualified Code(s): J18.1 - Lobar pneumonia, unspecified organism (5) DM2 (diabetes mellitus, type 2) Current Visit: No Status: Chronic Assessment and plan: - Blood glucose 244 most recently. -BUN/Cr of 16 & 0.97 today - A1c of 7.1% - Sliding scale insulin. Levemir basal insulin. 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 Qualifiers: Hypertension type: essential hypertension Qualified Code(s): I10 - Essential (primary) hypertension (7) CLL (chronic lymphocytic leukemia) Current Visit: No Status: Chronic Assessment and plan: - Chronically elevated white count, reportedly in 20s. White count 16.3 today. - Continue treatment as outpatient. (8) Hypomagnesemia Current Visit: Yes Status: Acute Assessment and plan: Mg today 1.6 - Will monitor and replace as necessary (9) Hypophosphatemia Current Visit: Yes Status: Acute Assessment and plan: - Phos most recently 1.9 - Will monitor and replace as necessary (10) CAD (coronary artery disease) Current Visit: No Status: Acute Assessment and plan: - Stable, no c/o cardiac chest pain - Troponin negative x4 - Continue home ASA, lipitor Qualifiers: Coronary Disease-Associated Artery/Lesion type: [place] artery [place] vs. transplanted heart: [place] heart Associated angina: without angina Qualified Code(s): I25.10 - Atherosclerotic heart disease of [place] coronary artery without angina pectoris (11) DVT prophylaxis Current Visit: No Status: Acute Assessment and plan: Heparin 5000 units SubQ - Subjective Interval history: Patient was seen and examined at bedside. Pt is feeling well and breathing continues to improve, productive cough. Chest pain pt complained of yesterday has markedly improved. Denies fevers, chills. Admits to nausea and several episodes emesis overnight. - Constitutional Vitals: Temp Pulse Resp BP Pulse Ox 98.6 F 97 22 143/78 94 03/11/17 20:16 03/11/17 20:16 03/11/17 20:16 03/11/17 20:16 03/11/17 20:16 General appearance: Present: cooperative, pleasant, answers questions appropriately. Absent: mild distress - Head Head exam: Present: normocephalic - Eye Eye exam: Present: EOMI, normal appearance - Respiratory Respiratory exam: Present: wheezes (expiratory). Absent: accessory muscle use, respiratory distress - Cardiovascular Cardiovascular exam: Present: RRR, +S1, +S2 Additional comments: No lower extremity swelling b/l - GI/Abdominal GI/Abdominal exam: Present: diminished bowel sounds, soft. Absent: guarding - Expanded Lower Extremities Exam Foot/Toe exam: Present: normal inspection Neuro vascular tendon exam: Absent: pulse deficit (b/l DP palpable and symmetric ) - Neurological Exam Neurological exam: Present: alert, oriented X3. Absent: facial droop, speech deficit Internal Medicine: Result - Labs CBC & Chem 7: 03/11/17 15:37 03/11/17 03:38 Labs: Short CBC 03/11/17 03/11/17 Range/Units 03:38 15:37 WBC 16.3 H (4.3-11.1) K/mcL Hgb 9.1 L 9.6 L (11.5-15.4) g/dL Hct 29.5 L 31.4 L (35.3-44.9) % Plt Count 103 L (140-400) K/mcL Neutrophils # 5.2 (1.6-8.9) K/mcL BMP 03/11/17 03:38 Sodium 141 Potassium 4.1 Chloride 110 H Carbon Dioxide 23 BUN 16 Creatinine 0.97 Glucose 244 H Calcium 8.3 L - ABG Interpretation ABG results: PT/INR, D-dimer PT 11.9 Seconds (9.4-12.1) 03/09/17 16:31 - Impressions Impressions Abdomen/Pelvis CT 03/11/17 08:15 IMPRESSION: 1. No acute process 2. Stable mild splenic enlargement and retroperitoneal and pelvic adenopathy D/ / Rio Morales MD / Rio Morales MD Interpreting Provider: Rio Morales MD Chest CTA 03/11/17 13:23 IMPRESSION: 1. No evidence of pulmonary embolus. 2. Findings of acute right upper lobe pneumonia with trace right parapneumonic effusion. 3. Mediastinal, axillary, and cervical adenopathy with interval enlargement of mediastinal lymph nodes concerning for progression of lymphoproliferative disease. D/ / Abhi Scott MD / Abhi Scott MD Interpreting Provider: Abhi Scott MD Consult Discharge Plan - Plan Referrals: Mariaelena Vasquez, MANA[employer] [Primary Care Provider] - 03/20/17 2:20 pm <Paul Robledo - Last Filed: 03/11/17 22:46> Date of Encounter: 03/11/17 - Assessment and plan (1) Community acquired pneumonia Current Visit: Yes Status: Acute Qualifiers: Laterality: right Lung location: middle lobe of lung Qualified Code(s): J18.1 - Lobar pneumonia, unspecified organism (2) Hypomagnesemia Current Visit: Yes Status: Acute (3) Hypophosphatemia Current Visit: Yes Status: Acute (4) Severe sepsis Current Visit: Yes Status: Resolved (5) CAD (coronary artery disease) Current Visit: No Status: Acute Qualifiers: Coronary Disease-Associated Artery/Lesion type: [place] artery [place] vs. transplanted heart: [place] heart Associated angina: without angina Qualified Code(s): I25.10 - Atherosclerotic heart disease of [place] coronary artery without angina pectoris (6) Acute metabolic encephalopathy Current Visit: Yes Status: Acute - Constitutional Vitals: Temp Pulse Resp BP Pulse Ox 98.6 F 97 22 143/78 94 03/11/17 20:16 03/11/17 20:16 03/11/17 20:16 03/11/17 20:16 03/11/17 20:16 Internal Medicine: Result - Labs CBC & Chem 7: 03/11/17 15:37 03/11/17 03:38 Labs: Short CBC 03/11/17 03/11/17 Range/Units 03:38 15:37 WBC 16.3 H (4.3-11.1) K/mcL Hgb 9.1 L 9.6 L (11.5-15.4) g/dL Hct 29.5 L 31.4 L (35.3-44.9) % Plt Count 103 L (140-400) K/mcL Neutrophils # 5.2 (1.6-8.9) K/mcL BMP 03/11/17 03:38 Sodium 141 Potassium 4.1 Chloride 110 H Carbon Dioxide 23 BUN 16 Creatinine 0.97 Glucose 244 H Calcium 8.3 L - ABG Interpretation ABG results: PT/INR, D-dimer PT 11.9 Seconds (9.4-12.1) 03/09/17 16:31 - Impressions Impressions Abdomen/Pelvis CT 03/11/17 08:15 IMPRESSION: 1. No acute process 2. Stable mild splenic enlargement and retroperitoneal and pelvic adenopathy D/ / Rio Morales MD / Rio Morales MD Interpreting Provider: Rio Morales MD Chest CTA 03/11/17 13:23 IMPRESSION: 1. No evidence of pulmonary embolus. 2. Findings of acute right upper lobe pneumonia with trace right parapneumonic effusion. 3. Mediastinal, axillary, and cervical adenopathy with interval enlargement of mediastinal lymph nodes concerning for progression of lymphoproliferative disease. D/ / Abhi Scott MD / Abhi Scott MD Interpreting Provider: Abhi Scott MD - Attending Attestation I examined this patient and my medical decision-making was reviewed with the Resident Physician on 03/11/17. I agree with the documented findings, disposition and treatment plan as described except to the extent set forth below. Ms. Vargas is currently admitted for pneumonia and encephalopathy. She remains moderate to high risk due to continued encephalopathy. Ms. Coelho had episode of chest pain today. CXR has RUL infiltrate. No fever or chills. No GI issues. Exam Alert. Comfortable now. Mucus membranes moist Heart reg No wheeze now Abd soft I/P 1. Pneumonia 2. Encephalopathy Further diagnoses and plan as above.
[2017-03-11] MEDS: Insulin DETEMIR 100 UNIT/ML X5UNITS SQ SCH (22:12)
[2017-03-12] MEDS: *HR* Morphine 2 MG/ML SYRINGE IVP PRN ×5 (00:42→20:33)
[2017-03-12] MEDS: Ipratropium/Albuterol Neb 3 ML IH SCH ×6 (03:49→22:52)
[2017-03-12 04:01] LABS: Hematocrit 30.2 % (35.3-44.9); Hemoglobin 9.5 g/dL (11.5-15.4); Mean Corpuscular HGB Conc 31.5 g/dL (31.6-35.5); Mean Corpuscular Volume 92.1 fL (83.0-100.0); Mean Platelet Volume 11.5 fL (9.4-12.4); Platelet Count 127 K/mcL (140-400); Red Blood Count 3.28 M/mcL (3.82-4.97); Red Cell Distribution Width 14.7 % (11.5-14.5)
[2017-03-12 04:12] LABS: BUN/Creatinine Ratio 17 (6-26); Blood Urea Nitrogen 15 mg/dL (7-20); Carbon Dioxide 22 mEq/L (19-29); Chloride 110 mEq/L (98-109); Glucose 173 mg/dL (70-99); Osmolality,Calculated 297 (280-300); Potassium 4.3 mEq/L (3.5-4.5); Sodium 141 mEq/L (136-145); eGFR For African Americans > 60 (> 60); eGFR For Non-African Americans > 60 (> 60)
[2017-03-12 04:49] LABS: Basophils # 0.4 K/mcL (0.0-0.2); Eosinophils # 0.4 K/mcL (0.0-0.6); Lymphocytes # 8.9 K/mcL (0.6-4.6); Monocytes # 0.8 K/mcL (0.0-1.3); Neutrophils # 8.9 K/mcL (1.6-8.9); Reactive Lymphocytes Present (Not Present); Smudge Cells Present (Not Present)
[2017-03-12 04:50] LABS: Platelet Estimate Slight Decrease (Normal)
[2017-03-12] MEDS: Famotidine 20 MG/2 ML VIAL IVP SCH (06:55)
[2017-03-12] MEDS: *HR* Heparin 5,000 UNIT/ML VIAL SQ SCH ×3 (06:55→20:34)
[2017-03-12] MEDS: Ondansetron 4 MG/2 ML VIAL IVP PRN ×2 (06:56→20:33)
[2017-03-12] MEDS: traMADol 50 MG TABLET PO PRN (07:54)
[2017-03-12] MEDS: Insulin LISPRO 300 UNITS/3 ML VIAL SQ SCH ×7 (07:56→20:55)
[2017-03-12] MEDS ORDERED: Benzonatate 100 MG CAPSULE PO PRN (08:46)
[2017-03-12] MEDS ORDERED: Ondansetron 4 MG/2 ML VIAL IVP ONE (08:49)
[2017-03-12 09:44] LABS: Amylase 30 Units/L (25-125); Lipase 14 Units/L (8-78)
[2017-03-12] MEDS ORDERED: *HR* HYDROmorphone (PF) 1 MG/ML SYRINGE IVP ONE (09:45)
[2017-03-12] MEDS: Topiramate 25 MG TABLET PO SCH ×2 (10:50→20:33)
[2017-03-12] MEDS: Fluticasone Propionate Nasal 50 MCG/SPRAY BOTTLE NS SCH (10:51)
[2017-03-12] MEDS: Ascorbic Acid 500 MG TABLET PO SCH (10:51)
[2017-03-12] MEDS: Folic Acid 1 MG TABLET PO SCH (10:51)
[2017-03-12] MEDS: Cyanocobalamin (B-12) 1,000 MCG TABLET PO SCH (10:51)
[2017-03-12] MEDS: Aspirin 81 MG TAB.CHEW PO SCH (10:51)
--- NOTE | 2017-03-12 13:36 | Internal Med Progress Note ---
<Nikky Harris - Last Filed: 03/12/17 22:47> Date of Encounter: 03/12/17 Time of Encounter: 13:31 - Assessment and plan (1) Acute encephalopathy Current Visit: Yes Status: Resolved Assessment and plan: Likely secondary to Severe sepsis secondary to CAP - Appears to be resolved - Treatment as below. (2) Severe sepsis Current Visit: Yes Status: Resolved Assessment and plan: -Levaquin day 4, continue (3) Anemia Current Visit: Yes Status: Acute Assessment and plan: -Hgb steady around 9.5, Hct steady in the low 30s -reassess CBC w/ morning labs Qualifiers: Anemia type: unspecified type Qualified Code(s): D64.9 - Anemia, unspecified (4) Community acquired pneumonia Current Visit: Yes Status: Acute Assessment and plan: - patient clinically improving. - Continue levaquin (day 4) - Afebrile, WBC chronically elevated in the setting of CLL. Qualifiers: Laterality: right Lung location: middle lobe of lung Qualified Code(s): J18.1 - Lobar pneumonia, unspecified organism (5) DM2 (diabetes mellitus, type 2) Current Visit: No Status: Chronic Assessment and plan: - Blood glucose 174 today. - Sliding scale insulin. Levemir basal insulin. 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 Qualifiers: Hypertension type: essential hypertension Qualified Code(s): I10 - Essential (primary) hypertension (7) CLL (chronic lymphocytic leukemia) Current Visit: No Status: Chronic Assessment and plan: -chest CTA shows enlarged mediastinal lymph nodes, concerning for progression of lymphoproliferative disease -Chronically elevated white count, reportedly in 20s. - Continue treatment as outpatient. (8) Hypomagnesemia Current Visit: Yes Status: Acute Assessment and plan: - Will monitor and replace as necessary (9) Hypophosphatemia Current Visit: Yes Status: Acute Assessment and plan: - Will monitor and replace as necessary (10) CAD (coronary artery disease) Current Visit: No Status: Acute Assessment and plan: - Stable, no c/o cardiac chest pain - Troponin negative x4 - Continue home ASA, lipitor Qualifiers: Coronary Disease-Associated Artery/Lesion type: [place] artery [place] vs. transplanted heart: [place] heart Associated angina: without angina Qualified Code(s): I25.10 - Atherosclerotic heart disease of [place] coronary artery without angina pectoris (11) DVT prophylaxis Current Visit: No Status: Acute Assessment and plan: Heparin 5000 units SubQ - Subjective Interval history: Patient was seen and examined at bedside. Pt very tearful this morning. Acutely distressed after several episodes emesis 2/2 repeatedly coughing hard, admits nausea. - Constitutional Vitals: Temp Pulse Resp BP Pulse Ox 98.3 F 84 16 152/87 96 03/12/17 06:53 03/12/17 06:53 03/12/17 07:29 03/12/17 06:53 03/12/17 08:00 General appearance: Present: cooperative, pleasant, answers questions appropriately. Absent: mild distress Exam: GENERAL: vital signs reviewed, acutely distressed, alert and oriented CARDIOVASC: RRR PULM: cough, no audible wheezes, normal respiratory effort GI: emesis seen in basin, no coffee ground emesis, no hematemesis Internal Medicine: Result - Labs CBC & Chem 7: 03/12/17 03:25 03/12/17 03:25 Labs: Short CBC 03/11/17 03/12/17 Range/Units 15:37 03:25 WBC 19.3 H (4.3-11.1) K/mcL Hgb 9.6 L 9.5 L (11.5-15.4) g/dL Hct 31.4 L 30.2 L (35.3-44.9) % Plt Count 127 L (140-400) K/mcL Neutrophils # 8.9 (1.6-8.9) K/mcL BMP 03/12/17 03:25 Sodium 141 Potassium 4.3 Chloride 110 H Carbon Dioxide 22 BUN 15 Creatinine 0.89 Glucose 173 H Calcium 9.0 - ABG Interpretation ABG results: PT/INR, D-dimer PT 11.9 Seconds (9.4-12.1) 03/09/17 16:31 - Impressions Impressions Chest CTA 03/11/17 13:23 IMPRESSION: 1. No evidence of pulmonary embolus. 2. Findings of acute right upper lobe pneumonia with trace right parapneumonic effusion. 3. Mediastinal, axillary, and cervical adenopathy with interval enlargement of mediastinal lymph nodes concerning for progression of lymphoproliferative disease. D/ / Abhi Scott MD / Abhi Scott MD Interpreting Provider: Abhi Scott MD Consult Discharge Plan - Plan Referrals: Mariaelena Vasquez CNP [Primary Care Provider] - 03/20/17 2:20 pm <Paul Robledo - Last Filed: 03/13/17 18:22> Date of Encounter: 03/13/17 - Assessment and plan (1) Abdominal pain Current Visit: Yes Status: Acute Qualifiers: Abdominal location: epigastric Qualified Code(s): R10.13 - Epigastric pain (2) Community acquired pneumonia Current Visit: Yes Status: Acute Qualifiers: Laterality: right Lung location: middle lobe of lung Qualified Code(s): J18.1 - Lobar pneumonia, unspecified organism (3) Hypomagnesemia Current Visit: Yes Status: Acute (4) Hypophosphatemia Current Visit: Yes Status: Acute (5) CAD (coronary artery disease) Current Visit: No Status: Acute Qualifiers: Coronary Disease-Associated Artery/Lesion type: [place] artery [place] vs. transplanted heart: [place] heart Associated angina: without angina Qualified Code(s): I25.10 - Atherosclerotic heart disease of [place] coronary artery without angina pectoris (6) Acute metabolic encephalopathy Current Visit: Yes Status: Acute (7) Anemia Current Visit: Yes Status: Acute Qualifiers: Anemia type: unspecified type Qualified Code(s): D64.9 - Anemia, unspecified (8) HTN (hypertension) Current Visit: Yes Status: Chronic Qualifiers: Hypertension type: essential hypertension Qualified Code(s): I10 - Essential (primary) hypertension (9) CLL (chronic lymphocytic leukemia) Current Visit: No Status: Chronic - Constitutional Vitals: Temp Pulse Resp BP Pulse Ox 98.4 F 92 17 150/57 96 03/12/17 16:18 09/28/17 16:18 03/12/17 16:18 03/12/17 16:18 03/12/17 16:18 Internal Medicine: Result - Labs CBC & Chem 7: 03/13/17 06:39 03/13/17 06:39 Labs: Short CBC 03/12/17 Range/Units 03:25 WBC 19.3 H (4.3-11.1) K/mcL Hgb 9.5 L (11.5-15.4) g/dL Hct 30.2 L (35.3-44.9) % Plt Count 127 L (140-400) K/mcL Neutrophils # 8.9 (1.6-8.9) K/mcL BMP 03/12/17 03:25 Sodium 141 Potassium 4.3 Chloride 110 H Carbon Dioxide 22 BUN 15 Creatinine 0.89 Glucose 173 H Calcium 9.0 - ABG Interpretation ABG results: PT/INR, D-dimer PT 11.9 Seconds (9.4-12.1) 03/09/17 16:31 - Impressions Impressions Ribs X-Ray 03/12/17 09:31 IMPRESSION: 1. No right rib fracture identified. Additionally, no fractures are seen on CT dated 03/11/2017. 2. Right upper lobe opacity, partially visualized. D/ / 03/12/2017 14:37:16 Kesha Arce MD / gabriele Interpreting Provider: Kesha Arce MD - Attending Attestation I examined this patient and my medical decision-making was reviewed with the Resident Physician on 03/12/17. I agree with the documented findings, disposition and treatment plan as described except to the extent set forth below. Ms. Vargas is currently admitted for acute encephalopathy and pneumonia. She has had significant RUQ discomfort today. She remains moderate to high risk due to potential for worsening respiratory status. Ms. Vargas is having a lot of discomfort and nausea today. No fever or chills. Vomited some. Coughing a lot. Xrays negative. Exam alert. Moderate distress due to pain and nausea Mucus membranes dry Heart reg Lungs with rhonchi bilaterally Abd with discomfort epigastric and R rib area Edema present I/P 1. PNA 2. Pain in abdomen 3. CLL Further diagnoses and plan as above.
[2017-03-12] MEDS ORDERED: Metoclopramide 10 MG/2 ML VIAL IVP ONE (14:44)
[2017-03-12] MEDS: Levofloxacin 750 MG/150 ML 750 MG/150 ML BAG IVPB SCH (17:48)
--- NOTE | 2017-03-12 19:30 | Electrocardiograph Report ---
[place] [id number] Test Date: 2017-03-11 Pat Name: Carmen Vargas Department: 110 Room: [id number] Gender: F [place]: ARNAUD : 1950 Requested By: Paul Robledo Order Number: [id number] Reading MD: Westley Ayers MD Measurements Intervals [place] Rate: 100 P: 69 HI: 108 QRS: 44 QRSD: 107 T: 32 QT: 334 QTc: 391 Interpretive Statements SINUS TACHYCARDIA WITH SHORT HI INTERVAL LOW QRS VOLTAGE IN PRECORDIAL LEADS BASELINE ARTIFACT Electronically Signed On 03-12-2017 19:28:32 EDT by Westley Ayers MD
[2017-03-12] MEDS: Primidone 50 MG TABLET PO SCH (20:33)
[2017-03-12] MEDS: Insulin DETEMIR 100 UNIT/ML X5UNITS SQ SCH (20:57)
[2017-03-13] MEDS: *HR* Morphine 2 MG/ML SYRINGE IVP PRN ×5 (01:59→22:00)
[2017-03-13] MEDS: Ondansetron 4 MG/2 ML VIAL IVP PRN ×4 (02:05→22:46)
[2017-03-13] MEDS: Ipratropium/Albuterol Neb 3 ML IH SCH ×6 (03:48→23:21)
[2017-03-13] MEDS ORDERED: Metoclopramide 10 MG/2 ML VIAL IVP ONE (04:13)
[2017-03-13] MEDS: *HR* Heparin 5,000 UNIT/ML VIAL SQ SCH ×3 (05:07→20:39)
[2017-03-13 07:16] LABS: BUN/Creatinine Ratio 15 (6-26); Blood Urea Nitrogen 14 mg/dL (7-20); Calcium 9.5 mg/dL (8.6-10.8); Carbon Dioxide 25 mEq/L (19-29); Chloride 106 mEq/L (98-109); Glucose 154 mg/dL (70-99); Hematocrit 33.5 % (35.3-44.9); Hemoglobin 10.4 g/dL (11.5-15.4); Mean Corpuscular Hemoglobin 28.7 pg (28.0-33.3); Mean Corpuscular Volume 92.3 fL (83.0-100.0); Mean Platelet Volume 11.1 fL (9.4-12.4); Nucleated Red Blood Cells 0.1 /100 WBC (0); Osmolality,Calculated 294 (280-300); Platelet Count 129 K/mcL (140-400); Potassium 4.5 mEq/L (3.5-4.5); Red Blood Count 3.63 M/mcL (3.82-4.97); Red Cell Distribution Width 14.8 % (11.5-14.5); eGFR For African Americans > 60 (> 60); eGFR For Non-African Americans > 60 (> 60)
[2017-03-13 07:21] LABS: Sodium 140 mEq/L (136-145)
[2017-03-13 08:51] LABS: Lymphocytes # 13.1 K/mcL (0.6-4.6); Neutrophils # 8.1 K/mcL (1.6-8.9)
[2017-03-13 08:52] LABS: Reactive Lymphocytes Present (Not Present); Smudge Cells Present (Not Present)
[2017-03-13 08:53] LABS: Platelet Estimate Slight Decrease (Normal)
--- NOTE | 2017-03-13 08:59 | Internal Med Progress Note ---
<Nikky Harris - Last Filed: 03/13/17 23:46> Date of Encounter: 03/13/17 Time of Encounter: 08:54 - Assessment and plan (1) Severe sepsis Current Visit: Yes Status: Resolved Assessment and plan: -Levaquin day 4, continue - Likely secondary to CAP. - Clinically improving. No longer meeting SIRS criteria. (2) Gastroparesis Current Visit: Yes Status: Acute Assessment and plan: - EGD performed this morning for complaints of n/v, abdominal pain on right - EGD showed diffuse edema, retained food in stomach. Suspect gastroparesis given PMHx of DM2 - Start reglan 5mg QID - Clear liquid diet, will advance as tolerated. (3) Acute encephalopathy Current Visit: Yes Status: Resolved Assessment and plan: - Appears to be resolved - Treatment as below. (4) Anemia Current Visit: Yes Status: Acute Assessment and plan: -Hgb 10.4, Hct 33.5, stable. - Baseline hgb of 11-13 -Normocytic anemia. Likely due to chronic disease - Last colonoscopy in 2011 with polypectomy. GI recommends outpatient followup. -Continue to monitor CBC with morning labs Qualifiers: Anemia type: other cause Other causes of anemia: chronic disease, other Qualified Code(s): D63.8 - Anemia in other chronic diseases classified elsewhere (5) Community acquired pneumonia Current Visit: Yes Status: Acute Assessment and plan: - patient clinically and symptomatically improving. - Continue levaquin (day 5) - Afebrile, WBC chronically elevated in the setting of CLL. Qualifiers: Laterality: right Lung location: middle lobe of lung Qualified Code(s): J18.1 - Lobar pneumonia, unspecified organism (6) DM2 (diabetes mellitus, type 2) Current Visit: No Status: Chronic Assessment and plan: - Blood glucose 154 today. - Sliding scale insulin. Levemir basal insulin. Qualifiers: Diabetes mellitus complication status: with kidney complications Diabetes mellitus complication detail: with chronic kidney disease Diabetes mellitus fci insulin use: with buttermaker helper use Chronic kidney disease stage: stage 3 (moderate) Qualified Code(s): E11.22 - Type 2 diabetes mellitus with diabetic chronic kidney disease; N18.3 - Chronic kidney disease, stage 3 ( moderate); Z79.4 - intermediate (current) use of insulin (7) HTN (hypertension) Current Visit: Yes Status: Chronic Assessment and plan: - 158/86. Continue to monitor for time being, will adjust as necessary - Continue home meds. Qualifiers: Hypertension type: essential hypertension Qualified Code(s): I10 - Essential (primary) hypertension (8) CLL (chronic lymphocytic leukemia) Current Visit: No Status: Chronic Assessment and plan: -chest CTA shows enlarged mediastinal lymph nodes, concerning for progression of lymphoproliferative disease -Chronically elevated white count, reportedly in 20s. - Continue treatment as outpatient. (9) Hypomagnesemia Current Visit: Yes Status: Resolved Assessment and plan: - Will monitor and replace as necessary (10) Hypophosphatemia Current Visit: Yes Status: Resolved Assessment and plan: - Will monitor and replace as necessary (11) CAD (coronary artery disease) Current Visit: No Status: Acute Assessment and plan: - Stable, no c/o cardiac chest pain - Troponin negative x4 - Continue home ASA, lipitor Qualifiers: Coronary Disease-Associated Artery/Lesion type: [place] artery [place] vs. transplanted heart: [place] heart Associated angina: without angina Qualified Code(s): I25.10 - Atherosclerotic heart disease of [place] coronary artery without angina pectoris (12) DVT prophylaxis Current Visit: No Status: Acute Assessment and plan: Heparin 5000 units SubQ - Subjective Interval history: Patient seen and examined. Complaining of nausea, vomiting, abdominal pain on right side. SOB improving, continues to denies cough. No fevers overnight - Constitutional Vitals: Temp Pulse Resp BP Pulse Ox 98.2 F 83 18 158/86 94 03/13/17 07:00 03/13/17 07:00 03/13/17 07:54 03/13/17 07:00 03/13/17 07:54 General appearance: Present: A&O X 3, no acute distress, answers questions appropriately - Head Head exam: Present: atraumatic, normocephalic - Eye Eye exam: Present: EOMI - Respiratory Respiratory exam: Present: CTAB. Absent: respiratory distress, wheezes - Cardiovascular Cardiovascular exam: Present: RRR, +S1, +S2 - GI/Abdominal GI/Abdominal exam: Present: soft. Absent: guarding, rigid, tenderness - Extremities Exam Extremities exam: Present: warm. Absent: tenderness Additional comments: edema in lower extremities bilaterally. Non-pitting edema on Rt, 1+ pitting edema on Lt. - Neurological Exam Neurological exam: Present: no focal deficits, facial droop, speech deficit Internal Medicine: Result - Labs CBC & Chem 7: 03/13/17 06:39 03/13/17 06:39 Labs: Short CBC 03/13/17 Range/Units 06:39 WBC 21.2 H (4.3-11.1) K/mcL Hgb 10.4 L (11.5-15.4) g/dL Hct 33.5 L (35.3-44.9) % Plt Count 129 L (140-400) K/mcL Neutrophils # 8.1 (1.6-8.9) K/mcL BMP 03/12/17 03/13/17 03:25 06:39 Sodium 141 140 Potassium 4.3 4.5 Chloride 110 H 106 Carbon Dioxide 22 25 BUN 15 14 Creatinine 0.89 0.91 Glucose 173 H 154 H Calcium 9.0 9.5 - ABG Interpretation ABG results: PT/INR, D-dimer PT 11.9 Seconds (9.4-12.1) 03/09/17 16:31 - Impressions Impressions Ribs X-Ray 03/12/17 09:31 IMPRESSION: 1. No right rib fracture identified. Additionally, no fractures are seen on CT dated 03/11/2017. 2. Right upper lobe opacity, partially visualized. D/ / 03/12/2017 14:37:16 Kesha Arce MD / [email or web address] Interpreting Provider: Kesha Arce MD Consult Discharge Plan - Plan Referrals: Mariaelena Vasquez CNP [Primary Care Provider] - 03/20/17 2:20 pm <Paul Robledo - Last Filed: 03/14/17 09:25> Date of Encounter: 03/13/17 - Assessment and plan (1) Gastroparesis Current Visit: Yes Status: Acute (2) Abdominal pain Current Visit: Yes Status: Acute Qualifiers: Abdominal location: epigastric Qualified Code(s): R10.13 - Epigastric pain (3) Community acquired pneumonia Current Visit: Yes Status: Acute Qualifiers: Laterality: right Lung location: middle lobe of lung Qualified Code(s): J18.1 - Lobar pneumonia, unspecified organism (4) Hypomagnesemia Current Visit: Yes Status: Resolved (5) Hypophosphatemia Current Visit: Yes Status: Resolved (6) CAD (coronary artery disease) Current Visit: Yes Status: Acute Qualifiers: Coronary Disease-Associated Artery/Lesion type: [place] artery [place] vs. transplanted heart: [place] heart Associated angina: without angina Qualified Code(s): I25.10 - Atherosclerotic heart disease of [place] coronary artery without angina pectoris (7) Acute metabolic encephalopathy Current Visit: Yes Status: Resolved (8) Anemia Current Visit: Yes Status: Acute Qualifiers: Anemia type: other cause Other causes of anemia: chronic disease, other Qualified Code(s): D63.8 - Anemia in other chronic diseases classified elsewhere (9) HTN (hypertension) Current Visit: Yes Status: Chronic Qualifiers: Hypertension type: essential hypertension Qualified Code(s): I10 - Essential (primary) hypertension (10) CLL (chronic lymphocytic leukemia) Current Visit: Yes Status: Chronic - Constitutional Vitals: Temp Pulse Resp BP Pulse Ox 97.8 F 96 17 133/63 97 03/13/17 15:00 03/13/17 15:00 03/13/17 15:00 03/13/17 15:00 03/13/17 15:00 Internal Medicine: Result - Labs CBC & Chem 7: 03/14/17 04:47 03/14/17 04:47 Labs: Short CBC 03/13/17 Range/Units 06:39 WBC 21.2 H (4.3-11.1) K/mcL Hgb 10.4 L (11.5-15.4) g/dL Hct 33.5 L (35.3-44.9) % Plt Count 129 L (140-400) K/mcL Neutrophils # 8.1 (1.6-8.9) K/mcL BMP 03/13/17 06:39 Sodium 140 Potassium 4.5 Chloride 106 Carbon Dioxide 25 BUN 14 Creatinine 0.91 Glucose 154 H Calcium 9.5 - ABG Interpretation ABG results: PT/INR, D-dimer PT 11.9 Seconds (9.4-12.1) 03/09/17 16:31 - Attending Attestation I examined this patient and my medical decision-making was reviewed with the Resident Physician on 03/13/17. I agree with the documented findings, disposition and treatment plan as described except to the extent set forth below. Ms Vargas is currently admitted for pneumonia and vomiting. She remains moderate to high risk due to potential for worsening respiratory status. Ms. Vargas continues to have R side pain. Says it is in her back and around abdomen. Still with nausea and vomiting. No fever or chills. On IV abx. Exam Alert. Mod distress due to discomfort. Heart reg Lungs with some rhonchi. Abd soft. Tender R paraspinal area No edema I/P 1. R side pain - ? musculoskeletal. Dose of muscle relaxant given. 2. Vomiting - ? gastroparesis. GI eval Further diagnoses and plan as above.
[2017-03-13] MEDS ORDERED: MOM Conc 10 ML UD.LIQ PO ONE (09:02)
[2017-03-13] MEDS: Cyanocobalamin (B-12) 1,000 MCG TABLET PO SCH (09:31)
[2017-03-13] MEDS: Ascorbic Acid 500 MG TABLET PO SCH (09:31)
[2017-03-13] MEDS: Folic Acid 1 MG TABLET PO SCH (09:31)
[2017-03-13] MEDS: Topiramate 25 MG TABLET PO SCH ×2 (09:31→20:38)
[2017-03-13] MEDS: Aspirin 81 MG TAB.CHEW PO SCH (09:31)
[2017-03-13] MEDS: Fluticasone Propionate Nasal 50 MCG/SPRAY BOTTLE NS SCH (09:32)
[2017-03-13] MEDS: Insulin LISPRO 300 UNITS/3 ML VIAL SQ SCH ×7 (09:32→20:39)
[2017-03-13] MEDS ORDERED: *HR* Promethazine 25 MG/ML VIAL IVP ONE ×2 (11:40→14:34)
[2017-03-13] MEDS ORDERED: Metoclopramide 10 MG/2 ML VIAL IVP SCH (12:00)
[2017-03-13] MEDS ORDERED: Orphenadrine 60 MG/2 ML VIAL IVP ONE (12:19)
[2017-03-13] MEDS ORDERED: *HR* Midazolam HCl 5 MG/5 ML VIAL IVP ONE (14:08)
[2017-03-13] MEDS ORDERED: *HR* FentaNYL (PF) 100 MCG/2 ML VIAL ONE (14:09)
[2017-03-13] MEDS ORDERED: Simethicone 40 MG/0.6 ML MLS IR ONE (14:27)
[2017-03-13] MEDS ORDERED: *HR* FentaNYL (PF) 100 MCG/2 ML VIAL IVP PRN (14:27)
[2017-03-13] MEDS ORDERED: Tetracaine/Benzocaine/Butamben 200MG/SPRAY (100SPY/BOT) MM ONE (14:27)
--- NOTE | 2017-03-13 14:29 | Pre-Sedation Evaluation ---
Pre-sedation evaluation - Pre-sedation checklist Recent Vitals: Last Vital Signs Temp 97.8 F 03/13/17 14:20 Pulse 97 03/13/17 14:26 Resp 18 03/13/17 14:26 BP 147/51 03/13/17 14:26 Pulse Ox 98 03/13/17 14:26 H&P (including ROS) documented in medical record: Yes Previous reaction to sedatives/anesthetics: No Dietary Status: NPO after Midnight Dentition: No loose teeth or bridges Possible difficult airway: No ASA Classification *see protocol: CLASS III-Severe systemic disease
[2017-03-13] MEDS ORDERED: 0.9 % Sodium Chloride 500 ML IVC SCH (14:30)
[2017-03-13] MEDS ORDERED: *HR* Promethazine 25 MG/ML VIAL ONE (14:31)
[2017-03-13] MEDS: *HR* Midazolam HCl 5 MG/5 ML VIAL IVP PRN ×2 (14:35→14:39)
[2017-03-13] MEDS ORDERED: Albuterol 2.5 MG/3 ML NEBULIZER ONE (14:44)
[2017-03-13] MEDS ORDERED: Albuterol 2.5 MG/3 ML NEBULIZER IH ONE (14:48)
--- NOTE | 2017-03-13 15:35 | Gastroenterology Consult Note ---
Date of Encounter: 03/13/17 Time of Encounter: 11:30 - Assessment and plan (1) Nausea and vomiting in adult Current Visit: Yes Status: Acute Assessment and plan: Pt has history of peptic ulcer disease 5 years ago. Will keep NPO and proceed with EGD today to rule out peptic ulcers as cause of nausea, vomiting and abdominal pain. She may also have gastroparesis. Continue omeprazole and zofran prn. (2) Abdominal pain Current Visit: Yes Status: Acute Assessment and plan: EGD today. Continue prilosec. Qualifiers: Abdominal location: right upper quadrant Qualified Code(s): R10.11 - Right upper quadrant pain (3) Morbid obesity Current Visit: Yes Status: Acute Assessment and plan: Weight loss is advisable. (4) Peptic ulcer disease Current Visit: Yes Status: Suspected Assessment and plan: EGD today. May be causing abdominal pain and nausea and vomiting (5) Screening for colorectal cancer Current Visit: Yes Status: Acute Assessment and plan: Last colonoscopy 2011 with polypectomy at [facility], will follow as outpatient and schedule for screening colonoscopy. - Time Spent With Patient Total time spent is greater than 50% in coordination of care (as documented) at patient's floor/unit and/or counseling patient: GI History of Present Illness - Data of Consult Patient: new to practice Consult date: 03/13/17 Requesting Physician: Paul Robledo DO - Consult Narrative Reason for consult: RUQ pain/nausea History of present illness: Ms. Vargas is a 66 year old female who presents with nausea and vomiting for the past 6 days. She is also complaining of RLQ abdominal pain. CT abdomen showed stable splenic enlargement, retroperitoneal and pelvic adenopathy. CTA chest showed RUL pneumonia with trace parapneumonic effusion and mediastinal adenopathy. She has a history of CLL, not on any treatment at this time. She had leukocytosis with WBC 31.8 on admission which has decreased to 21.2. She denies bloody or tarry stools. She had 2 diarrhea stools on Thursday, none since that time. She denies bloody emesis. She denies fever or chills. She also has history of chronic renal insufficiency, BUN and Creatinine are WNL at this time. She reports last EGD/Colonoscopy was in 2011 at [facility] and had a polyp removed at that time. She is on Aspirin at home but denies any use of NSAIDs. Surgical history includes cholecystectomy in her 30s and hysterectomy. Past Med Surg Social Fam HX - Past Medical History Medical history: cancer, coronary artery disease, diabetes, hypertension, renal disease, other Psychiatric history: no psych history - Past Surgical History Surgical History: cholecystectomy, THERESE/BSO, other - Social History Smoking Status: Never smoker Smokeless Tobacco Status: No Alcohol use: none Drug use: none - Family History Mother Living Status: Hx Family Endocrine Disorder: Yes Father Living Status: Hx Family Cardiac Disorders: Yes Hx Family Respiratory Disorders: No Hx Family Cancer: Yes Hx Family GI Disorders: Yes Hx Family Endocrine Disorder: Yes Hx Family Neuromuscular Disorders: No Hx Family Neurologic Disorders: Yes Hx Family HEENT Disorders: No Hx Family Autoimmune Disorders: No Review of Systems: GI: as per [place] [facility]: denies fever or chills EYES: denies yellow discoloration ENT: denies pain with swallowing or difficulty swallowing CARDIO: had chest pain before admission, now resolved no palpitations or edema. RESP: Mild shortness of breath with exertion : denies change in color of urine NEURO: occasional weakness HEME: Denies any bruising MS: denies joint pain, joint swelling or back pain. DERM: denies rash or itching PSYCH: Denies history of anxiety or depression - Constitutional Vitals: Temp Pulse Resp BP Pulse Ox 97.8 F 96 17 133/63 97 03/13/17 15:00 03/13/17 15:00 03/13/17 15:00 03/13/17 15:00 03/13/17 15:00 Exam: CONSTITUTIONAL:~alert, no acute distress, flat affect noted.~HEAD:~ normocephalic.~EYES:~no jaundice.~NECK:~no obvious swelling.~HEART:~regular rate and rhythm, no murmurs.~LUNGS:~bilateral fair air entry.~ABDOMEN:~non distended, soft, tender RUQ and RLQ, obese, no masses pulpable, no organomegaly.~RECTAL EXAM:~Deferred.~EXTREMITIES:~no clubbing, cyanosis 1+ BLE edema.~SKIN:~pallor noted, no stigmata of chronic liver disease.~NEUROLOGIC:~no obvious focal defect.~~~~ Results - Labs CBC & Chem 7: 03/13/17 06:39 03/13/17 06:39 Labs: Last Result Calcium 9.5 mg/dL (8.6-10.8) 03/13/17 06:39 Troponin I 0.00 ng/mL (0-0.03) 03/10/17 09:26 Entire Visit Hgb 10.4 g/dL (11.5-15.4) L 03/13/17 06:39 Hct 33.5 % (35.3-44.9) L 03/13/17 06:39 PT 11.9 Seconds (9.4-12.1) 03/09/17 16:31 Total Bilirubin 0.5 mg/dL (0.2-1.2) 03/09/17 16:31 AST 10 Units/L (5-34) 03/09/17 16:31 ALT 10 Units/L (0-55) 03/09/17 16:31 Amylase 30 Units/L (25-125) 03/12/17 03:25 Lipase 14 Units/L (8-78) 03/12/17 03:25 - ABG ABG results: PT/INR, D-dimer PT 11.9 Seconds (9.4-12.1) 03/09/17 16:31 Consult Discharge Plan - Plan Referrals: Mariaelena Vasquez, SH[employer]TLE [employer]ER [Primary Care Provider] - 03/20/17 2:20 pm
[2017-03-13] MEDS: Levofloxacin 750 MG/150 ML 750 MG/150 ML BAG IVPB SCH (17:14)
[2017-03-13] MEDS: Metoclopramide 10 MG/10 ML UD.LIQ PO SCH ×2 (17:14→22:46)
[2017-03-13] MEDS: traMADol 50 MG TABLET PO PRN (20:37)
[2017-03-13] MEDS: Primidone 50 MG TABLET PO SCH (20:37)
[2017-03-13] MEDS: Insulin DETEMIR 100 UNIT/ML X5UNITS SQ SCH (20:39)
[2017-03-13] MEDS: Acetaminophen 325 MG TABLET PO PRN (22:45)
[2017-03-14] MEDS: Ipratropium/Albuterol Neb 3 ML IH SCH ×6 (03:47→23:36)
[2017-03-14 05:10] LABS: Hematocrit 30.7 % (35.3-44.9); Hemoglobin 9.6 g/dL (11.5-15.4); Mean Corpuscular HGB Conc 31.3 g/dL (31.6-35.5); Mean Corpuscular Hemoglobin 28.2 pg (28.0-33.3); Mean Platelet Volume 11.3 fL (9.4-12.4); Platelet Count 127 K/mcL (140-400); Red Blood Count 3.41 M/mcL (3.82-4.97); Red Cell Distribution Width 14.9 % (11.5-14.5)
[2017-03-14 05:25] LABS: BUN/Creatinine Ratio 16 (6-26); Blood Urea Nitrogen 14 mg/dL (7-20); Calcium 9.2 mg/dL (8.6-10.8); Carbon Dioxide 23 mEq/L (19-29); Chloride 108 mEq/L (98-109); Glucose 138 mg/dL (70-99); Osmolality,Calculated 295 (280-300); Sodium 141 mEq/L (136-145); eGFR For African Americans > 60 (> 60); eGFR For Non-African Americans > 60 (> 60)
[2017-03-14 05:27] LABS: Potassium 4.4 mEq/L (3.5-4.5)
[2017-03-14] MEDS: *HR* Heparin 5,000 UNIT/ML VIAL SQ SCH ×3 (06:09→21:02)
[2017-03-14] MEDS: Metoclopramide 10 MG/10 ML UD.LIQ PO SCH ×3 (06:09→17:02)
--- NOTE | 2017-03-14 07:57 | Internal Med Progress Note ---
<Jabari Morse - Last Filed: 03/14/17 08:13> Date of Encounter: 03/14/17 Time of Encounter: 07:51 - Assessment and plan (1) Gastroparesis Current Visit: Yes Status: Acute Assessment and plan: - EGD showed diffuse edema, retained food in stomach. Suspect gastroparesis given PMHx of DM2 - Start reglan 5mg QID: tolerating diet will advance to full liquids (2) Reflux esophagitis Current Visit: Yes Status: Acute Assessment and plan: LA grade B reflux esophagitis per EGD on PPI continues to have abdominal pain. will start carafate (3) Severe sepsis Current Visit: Yes Status: Resolved Assessment and plan: -Levaquin day 6 will continue for 7 days -due to CAP -resolved. (4) Community acquired pneumonia Current Visit: Yes Status: Acute Assessment and plan: -patient clinically and symptomatically improving. - Continue levaquin (day 6) - Afebrile, WBC chronically elevated in the setting of CLL. -denies coughing, sob Qualifiers: Laterality: right Lung location: middle lobe of lung Qualified Code(s): J18.1 - Lobar pneumonia, unspecified organism (5) Acute encephalopathy Current Visit: Yes Status: Resolved Assessment and plan: - Appears to be resolved - 2nd to CAP, treated with levaquin (6) Anemia Current Visit: Yes Status: Acute Assessment and plan: -stable - Baseline hgb of 11-13 -Normocytic anemia. Likely due to chronic disease - Last colonoscopy in 2011 with polypectomy. GI recommends outpatient followup. -Continue to monitor CBC with morning labs Qualifiers: Anemia type: other cause Other causes of anemia: chronic disease, other Qualified Code(s): D63.8 - Anemia in other chronic diseases classified elsewhere (7) CAD (coronary artery disease) Current Visit: Yes Status: Acute Assessment and plan: - Stable, no c/o cardiac chest pain - Troponin negative x4 - Continue home ASA, lipitor Qualifiers: Coronary Disease-Associated Artery/Lesion type: [place] artery [place] vs. transplanted heart: [place] heart Associated angina: without angina Qualified Code(s): I25.10 - Atherosclerotic heart disease of [place] coronary artery without angina pectoris (8) CLL (chronic lymphocytic leukemia) Current Visit: Yes Status: Chronic Assessment and plan: -chest CTA shows enlarged mediastinal lymph nodes, concerning for progression of lymphoproliferative disease -Chronically elevated white count, reportedly in 20s. - Continue treatment as outpatient. -follow up with oncology (9) DM2 (diabetes mellitus, type 2) Current Visit: Yes Status: Chronic Assessment and plan: - Blood glucose controlled - Sliding scale insulin. Levemir basal insulin. -full liquid diet. Qualifiers: Diabetes mellitus complication status: with kidney complications Diabetes mellitus complication detail: with chronic kidney disease Diabetes mellitus longterm insulin use: with long term care social worker use Chronic kidney disease stage: stage 3 (moderate) Qualified Code(s): E11.22 - Type 2 diabetes mellitus with diabetic chronic kidney disease; N18.3 - Chronic kidney disease, stage 3 ( moderate); Z79.4 - adjunct faculty for medical terminology (current) use of insulin (10) DVT prophylaxis Current Visit: Yes Status: Acute Assessment and plan: Heparin 5000 units SubQ (11) HTN (hypertension) Current Visit: Yes Status: Chronic Assessment and plan: - controlled - Continue home meds. Qualifiers: Hypertension type: essential hypertension Qualified Code(s): I10 - Essential (primary) hypertension - Subjective Interval history: Patient denies any acute events overnight. Denies N/V. Reports continued abdominal pain 01/22. Tolerated clear liquid diet last night. - Constitutional Vitals: Temp Pulse Resp BP Pulse Ox 98.0 F 88 12 153/81 94 03/14/17 07:06 03/14/17 07:06 03/14/17 07:06 03/14/17 07:06 03/14/17 07:06 General appearance: Present: A&O X 3, no acute distress, answers questions appropriately - Respiratory Respiratory exam: Present: CTAB. Absent: accessory muscle use, rales, rhonchi, wheezes - Cardiovascular Cardiovascular exam: Present: RRR, +S1, +S2. Absent: diastolic murmur, gallop, rubs, systolic murmur - GI/Abdominal GI/Abdominal exam: Present: soft, tenderness (LLQ) Additional comments: + BS - Extremities Exam Extremities exam: Present: pedal edema (trace), warm, radial pulses palpable and symmetrical. Absent: calf tenderness, cyanotic Internal Medicine: Result - Labs CBC & Chem 7: 03/14/17 04:47 03/14/17 04:47 Labs: Short CBC 03/13/17 03/14/17 Range/Units 06:39 04:47 WBC 16.4 H (4.3-11.1) K/mcL Hgb 9.6 L (11.5-15.4) g/dL Hct 30.7 L (35.3-44.9) % Plt Count 127 L (140-400) K/mcL Neutrophils # 8.1 (1.6-8.9) K/mcL BMP 03/14/17 04:47 Sodium 141 Potassium 4.4 Chloride 108 Carbon Dioxide 23 BUN 14 Creatinine 0.89 Glucose 138 H Calcium 9.2 - ABG Interpretation ABG results: PT/INR, D-dimer PT 11.9 Seconds (9.4-12.1) 03/09/17 16:31 Consult Discharge Plan - Plan Referrals: Mariaelena Vasquez CNP [Primary Care Provider] - 03/20/17 2:20 pm <Paul Robledo - Last Filed: 03/14/17 09:49> Date of Encounter: 03/14/17 - Assessment and plan (1) Reflux esophagitis Current Visit: Yes Status: Acute (2) Gastroparesis Current Visit: Yes Status: Acute (3) Community acquired pneumonia Current Visit: Yes Status: Acute Qualifiers: Laterality: right Lung location: middle lobe of lung Qualified Code(s): J18.1 - Lobar pneumonia, unspecified organism (4) CAD (coronary artery disease) Current Visit: Yes Status: Acute Qualifiers: Coronary Disease-Associated Artery/Lesion type: [place] artery [place] vs. transplanted heart: [place] heart Associated angina: without angina Qualified Code(s): I25.10 - Atherosclerotic heart disease of [place] coronary artery without angina pectoris (5) Anemia Current Visit: Yes Status: Acute Qualifiers: Anemia type: other cause Other causes of anemia: chronic disease, other Qualified Code(s): D63.8 - Anemia in other chronic diseases classified elsewhere (6) HTN (hypertension) Current Visit: Yes Status: Chronic Qualifiers: Hypertension type: essential hypertension Qualified Code(s): I10 - Essential (primary) hypertension (7) CLL (chronic lymphocytic leukemia) Current Visit: Yes Status: Chronic (8) Obesity (BMI 30-39.9) Current Visit: Yes Status: Chronic (9) Type 2 diabetes mellitus Current Visit: Yes Status: Chronic Qualifiers: Diabetes mellitus complication status: with hyperglycemia Diabetes mellitus longterm insulin use: with longterm use Qualified Code(s): E11.65 - Type 2 diabetes mellitus with hyperglycemia; Z79.4 - care home (current) use of insulin - Constitutional Vitals: Temp Pulse Resp BP Pulse Ox 98.0 F 88 12 153/81 94 03/14/17 07:06 03/14/17 07:06 03/14/17 07:06 03/14/17 07:06 03/14/17 07:06 Internal Medicine: Result - Labs CBC & Chem 7: 03/14/17 04:47 03/14/17 04:47 Labs: Short CBC 03/14/17 Range/Units 04:47 WBC 16.4 H (4.3-11.1) K/mcL Hgb 9.6 L (11.5-15.4) g/dL Hct 30.7 L (35.3-44.9) % Plt Count 127 L (140-400) K/mcL BMP 03/14/17 04:47 Sodium 141 Potassium 4.4 Chloride 108 Carbon Dioxide 23 BUN 14 Creatinine 0.89 Glucose 138 H Calcium 9.2 - ABG Interpretation ABG results: PT/INR, D-dimer PT 11.9 Seconds (9.4-12.1) 03/09/17 16:31 - Attending Attestation I examined this patient and my medical decision-making was reviewed with the Resident Physician on 03/14/17. I agree with the documented findings, disposition and treatment plan as described except to the extent set forth below. Ms. Vargas is currently admitted for pneumonia and intractable nausea and vomiting related to gastroparesis. She remains moderate to high risk due to potential for worsening respiratory and GI status. Ms Vargas feels a little better today. Pain is still there in her R back but a little better. Nausea has improved some and she is trying some PO things. No fever or chills. No CP or SOB. No diarrhea. Exam Alert. Comfortable resting in bed. Mucus membranes dry Heart reg No wheeze at this time Abd soft - no tenderness now No edema I/P 1. PNA 2. Gastroparesis Further diagnoses and plan as above.
[2017-03-14] MEDS: Insulin LISPRO 300 UNITS/3 ML VIAL SQ SCH ×7 (08:23→21:03)
[2017-03-14] MEDS: Topiramate 25 MG TABLET PO SCH ×2 (08:28→21:02)
[2017-03-14] MEDS: Aspirin 81 MG TAB.CHEW PO SCH (08:28)
[2017-03-14] MEDS: Folic Acid 1 MG TABLET PO SCH (08:28)
[2017-03-14] MEDS: *HR* Morphine 2 MG/ML SYRINGE IVP PRN ×4 (08:39→22:28)
[2017-03-14] MEDS: Fluticasone Propionate Nasal 50 MCG/SPRAY BOTTLE NS SCH (08:44)
[2017-03-14] MEDS: Sucralfate 1 GM TABLET PO SCH ×3 (11:54→21:02)
[2017-03-14] MEDS: Levofloxacin 750 MG/150 ML 750 MG/150 ML BAG IVPB SCH (17:02)
[2017-03-14] MEDS: Insulin DETEMIR 100 UNIT/ML X5UNITS SQ SCH (21:01)
[2017-03-14] MEDS: Primidone 50 MG TABLET PO SCH (21:02)
[2017-03-14] MEDS: traMADol 50 MG TABLET PO PRN (21:13)
[2017-03-15] MEDS: Metoclopramide 10 MG/10 ML UD.LIQ PO SCH ×4 (00:13→17:58)
[2017-03-15] MEDS: Ipratropium/Albuterol Neb 3 ML IH SCH ×4 (03:50→16:18)
[2017-03-15 04:27] LABS: Hematocrit 32.8 % (35.3-44.9); Hemoglobin 10.4 g/dL (11.5-15.4); Mean Corpuscular HGB Conc 31.7 g/dL (31.6-35.5); Mean Corpuscular Hemoglobin 28.3 pg (28.0-33.3); Mean Corpuscular Volume 89.4 fL (83.0-100.0); Mean Platelet Volume 11.1 fL (9.4-12.4); Nucleated Red Blood Cells 0.1 /100 WBC (0); Platelet Count 137 K/mcL (140-400); Red Blood Count 3.67 M/mcL (3.82-4.97); Red Cell Distribution Width 14.6 % (11.5-14.5)
[2017-03-15 04:50] LABS: Eosinophils # 0.4 K/mcL (0.0-0.6); Lymphocytes # 10.1 K/mcL (0.6-4.6); Monocytes # 0.4 K/mcL (0.0-1.3); Neutrophils # 9.3 K/mcL (1.6-8.9); Platelet Estimate Slight Decrease (Normal); Reactive Lymphocytes Present (Not Present); Smudge Cells Present (Not Present)
[2017-03-15] MEDS: *HR* Morphine 2 MG/ML SYRINGE IVP PRN (05:26)
[2017-03-15] MEDS: *HR* Heparin 5,000 UNIT/ML VIAL SQ SCH ×2 (05:27→13:35)
[2017-03-15 06:08] VITALS: BP 147/66
[2017-03-15] MEDS: Folic Acid 1 MG TABLET PO SCH (08:08)
[2017-03-15] MEDS: Topiramate 25 MG TABLET PO SCH (08:08)
[2017-03-15] MEDS: Aspirin 81 MG TAB.CHEW PO SCH (08:08)
[2017-03-15] MEDS: Sucralfate 1 GM TABLET PO SCH ×3 (08:08→17:58)
[2017-03-15] MEDS: Fluticasone Propionate Nasal 50 MCG/SPRAY BOTTLE NS SCH (08:13)
[2017-03-15] MEDS: Insulin LISPRO 300 UNITS/3 ML VIAL SQ SCH ×6 (08:13→18:01)
[2017-03-15] MEDS: traMADol 50 MG TABLET PO PRN ×2 (08:22→13:39)
--- NOTE | 2017-03-15 08:41 | Discharge Summary ---
<Jabari Morse - Last Filed: 03/15/17 08:36> Date of Encounter: 03/15/17 Time of Encounter: 08:36 - Discharge Diagnosis (1) Acute encephalopathy Priority: Primary Status: Resolved (2) Severe sepsis Priority: Secondary Status: Resolved (3) Community acquired pneumonia Priority: Secondary Status: Acute Qualifiers: Laterality: right Lung location: middle lobe of lung Qualified Code(s): J18.1 - Lobar pneumonia, unspecified organism (4) Gastroparesis Priority: Secondary Status: Acute (5) Reflux esophagitis Priority: Secondary Status: Acute (6) Anemia Priority: Secondary Status: Acute Qualifiers: Anemia type: other cause Other causes of anemia: chronic disease, other Qualified Code(s): D63.8 - Anemia in other chronic diseases classified elsewhere (7) CAD (coronary artery disease) Priority: Secondary Status: Acute Qualifiers: Coronary Disease-Associated Artery/Lesion type: [place] artery [place] vs. transplanted heart: [place] heart Associated angina: without angina Qualified Code(s): I25.10 - Atherosclerotic heart disease of [place] coronary artery without angina pectoris (8) CLL (chronic lymphocytic leukemia) Priority: Secondary Status: Chronic (9) DM2 (diabetes mellitus, type 2) Priority: Secondary Status: Chronic Qualifiers: Diabetes mellitus complication status: with kidney complications Diabetes mellitus complication detail: with chronic kidney disease Diabetes mellitus custodial insulin use: with custodial use Chronic kidney disease stage: stage 3 (moderate) Qualified Code(s): E11.22 - Type 2 diabetes mellitus with diabetic chronic kidney disease; N18.3 - Chronic kidney disease, stage 3 ( moderate); Z79.4 - prison (current) use of insulin (10) DVT prophylaxis Priority: Secondary Status: Acute (11) HTN (hypertension) Priority: Secondary Status: Chronic Qualifiers: Hypertension type: essential hypertension Qualified Code(s): I10 - Essential (primary) hypertension - Discharge Medications Prescriptions: Metoclopramide [Reglan] 5 mg PO Q6HR #120 ud.liq Ondansetron [Zofran] 4 mg PO Q8HR #20 tablet HYDROcodone/Acet 5/325 mg [[place] 5-325 mg] 1 tab PO Q6H PRN #10 tab PRN Reason: Pain Omeprazole [PriLOSEC] 40 mg PO DAILY #30 cap Sucralfate [Carafate] 1 gm PO QIDAC #120 tablet Home Medications: Aspirin 81 mg PO DAILY 04/05/15 [History] Atorvastatin [Lipitor] 40 mg PO DAILY 04/05/15 [History] Enalapril Maleate [Vasotec] 5 mg PO DAILY 04/05/15 [History] Insulin LISPRO [HumaLOG] 0 units SQ TIDAC 04/05/15 [History] Topiramate [Topamax] 25 mg PO BID 08/23/15 [History] Folic Acid 1 mg PO DAILY #30 tablet 09/18/15 [Rx] Ergocalciferol (VITAMIN D2) [Vitamin D2 (50,000 UNIT)] 50,000 unit PO WE [History] Loperamide HCl [Imodium A-D] 2 mg PO QID PRN 02/28/16 [History] Primidone [Mysoline] 50 mg PO HS 02/28/16 [History] Ascorbic Acid [Vitamin C] 500 mg PO DAILY 03/06/16 [History] Cyanocobalamin (Vitamin B-12) [Vitamin B-12] 100 mcg PO DAILY 03/06/16 [History] Ferrous Sulfate [Iron] 325 mg PO DAILY 03/06/16 [History] Fluticasone Propionate Nasal [Flonase] 2 spray NS DAILY 11/26/16 [History] Insulin Glargine/Lixisenatide [[place] 100 Unit-33 Mcg/ml Pen] 60 unit SQ HS [History] Tramadol HCl [Ultram] 50 mg PO TID 11/26/16 [History] HYDROcodone/Acet 5/325 mg [[place] 5-325 mg] 1 tab PO Q6H PRN #10 tab 03/15/17 [Rx ] Metoclopramide [Reglan] 5 mg PO Q6HR #120 ud.liq 03/15/17 [Rx] Omeprazole [PriLOSEC] 40 mg PO DAILY #30 cap 03/15/17 [Rx] Ondansetron [Zofran] 4 mg PO Q8HR #20 tablet 03/15/17 [Rx] Sucralfate [Carafate] 1 gm PO QIDAC #120 tablet 03/15/17 [Rx] Allergies/Adverse Reactions: 3 Allergy/AdvReac Type Severity Reaction Status Date / Time metformin Allergy Nausea Verified 03/09/17 15:34 Sulfa (Sulfonamide Allergy Nausea Verified 03/09/17 15:34 Antibiotics) sulfamethoxazole Allergy Nausea Verified 03/09/17 15:34 [From Bactrim] trimethoprim [From Bactrim] Allergy Nausea Verified 03/09/17 15:34 Date of admission: 03/09/17 20:00 Primary care physician: Mariaelena Vasquez CNP Consults: 03/12/17 13:19 Consult to Speech Therapy [CONS] Routine Comment: Evaluate, develop and implement POC Reason for Consult: Coughing and vomiting today, concern for aspiration Call Completed: Yes Discharging clinician: Jabari Morse Anticipated date of discharge: 03/15/17 - Patient Status Disposition: Home, Self-Care Condition: Fair Functional capacity at discharge: independent ambulation Overall status at discharge: patient is progressing back to baseline - Discharge Instructions Instructions: Metoclopramide (By mouth), Sucralfate (By mouth), Hydrocodone/ Acetaminophen (By mouth), Omeprazole (By mouth), Ondansetron (By mouth), Urinary Tract Infection in Women (DC), Diabetes Mellitus Type 2 in Adults (DC), Gastroenteritis (DC), Sepsis (DC), Chronic Hypertension (DC), Anemia (GEN), Pneumonia (DC) Follow Up With: Mariaelena Vasquez CNP [Primary Care Provider] - 03/20/17 2:20 pm Rodo Salcedo MD [Partnered Physician] - (hospital f/u for gastroparesis/ esophagitis. Needs colonoscopy) Additional Instructions: Start taking medications omeprazole, Reglan, Carafate. Follow-up with GI, PCP, oncology. - Diet and Activity Activity: increase activity as tolerated Diet: diabetic diet Hospital course: Ms. Vargas is a 66 year old female who presented confused, with fever, productive cough, abdominal pain, myalgia. Patient is found to be in sepsis secondary to community-acquired pneumonia. Patient was started on Levaquin, vancomycin, Zosyn. CT abdomen and pelvis completed for abdominal pain showed right middle lobe airspace disease and enlarged lymph nodes along the left iliac chain. CT chest showed findings of right upper lobe pneumonia And mediastinal lymph adenopathy. Patient has a previous diagnosis of CLL. Patient mental status improved after being started on antibiotics. Antibiotics were D escalated to IV Levaquin. Patient finished 5 day course of antibiotics and her shortness of breath, coughing resolved. 2 her stay she had continued a bowel pain, nausea, multiple bouts of vomiting. Repeat CT abdomen and pelvis did not show any acute abnormalities. She was counseled today and patient underwent EGD which showed gastroparesis and esophagitis. Patient was started on Reglan, omeprazole and this Carafate. This helped improve the symptoms of nausea, vomiting, abdominal pain. patient was again able to tolerate a diabetic diet, is able to ambulate on her own. And is ready for discharge. Plan: Continue to take Carafate, omeprazole and Reglan at home. Follow-up with primary care physician. Follow-up with GI outpatient for colonoscopy. Follow up with oncology for CLL. - Time Spent with Patient Total time spent providing and/or coordinating discharge services: - Constitutional Vitals: Temp Pulse Resp BP Pulse Ox 98.2 F 85 15 147/66 94 03/15/17 06:06 03/15/17 06:06 03/15/17 08:16 03/15/17 06:06 03/15/17 08:16 General appearance: Present: A&O X 3, no acute distress, answers questions appropriately - Head Head exam: Present: atraumatic, normocephalic - Eye Eye exam: Present: PERRL, conjuntiva pink, sclera anicteric - Neck Neck exam general surgery: Present: supple, trachea midline. Absent: lymphadenopathy - Respiratory Respiratory exam: Present: CTAB. Absent: accessory muscle use, rales, rhonchi, wheezes - Cardiovascular Cardiovascular exam: Present: RRR, +S1, +S2. Absent: diastolic murmur, gallop, rubs, systolic murmur - GI/Abdominal GI/Abdominal exam: Present: normal bowel sounds, soft, no peritoneal signs. Absent: distended, tenderness - Extremities Exam Extremities exam: Present: warm, radial pulses palpable and symmetrical. Absent : calf tenderness, cyanotic, pedal edema - Neurological Exam Neurological exam: Present: CN II-XII intact, oriented X3, no focal deficits. Absent: pronater drift, facial droop, speech deficit - Skin Skin exam: Present: dry, intact <Paul Robledo - Last Filed: 03/15/17 13:04> Date of Encounter: 03/15/17 - Discharge Diagnosis (1) Acute metabolic encephalopathy Priority: Primary Status: Resolved (2) Community acquired pneumonia Priority: Primary Status: Acute Qualifiers: Laterality: right Lung location: middle lobe of lung Qualified Code(s): J18.1 - Lobar pneumonia, unspecified organism (3) Reflux esophagitis Status: Acute (4) Gastroparesis Status: Acute (5) CAD (coronary artery disease) Status: Acute Qualifiers: Coronary Disease-Associated Artery/Lesion type: [place] artery [place] vs. transplanted heart: [place] heart Associated angina: without angina Qualified Code(s): I25.10 - Atherosclerotic heart disease of [place] coronary artery without angina pectoris (6) Anemia Status: Acute Qualifiers: Anemia type: other cause Other causes of anemia: chronic disease, other Qualified Code(s): D63.8 - Anemia in other chronic diseases classified elsewhere (7) HTN (hypertension) Status: Chronic Qualifiers: Hypertension type: essential hypertension Qualified Code(s): I10 - Essential (primary) hypertension (8) CLL (chronic lymphocytic leukemia) Status: Chronic (9) Obesity (BMI 30-39.9) Status: Chronic (10) Type 2 diabetes mellitus Priority: Secondary Status: Chronic Qualifiers: Diabetes mellitus complication status: with hyperglycemia Diabetes mellitus custodial insulin use: with emt intermediate use Qualified Code(s): E11.65 - Type 2 diabetes mellitus with hyperglycemia; 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 Vargas is a 66 year old female - Time Spent with Patient Total time spent providing and/or coordinating discharge services: 38min - Constitutional Vitals: Temp Pulse Resp BP Pulse Ox 98.2 F 85 15 147/66 94 03/15/17 06:06 03/15/17 06:06 03/15/17 08:16 03/15/17 06:06 03/15/17 08:16 - Attending Attestation I examined this patient and my medical decision-making was reviewed with the Resident Physician on 03/15/17. I agree with the documented findings, disposition and treatment plan as described except to the extent set forth below. Ms. Vargas has been admitted for acute encephalopathy due to pneumonia. She had issues with R side pain with negative work up. It appears it was related to coughing. She also had issues with intractable nausea and vomiting and endoscopy was consistent with gastroparesis. She was started on Reglan with improvement. Today she is doing better. She is afebrile and vitals stable. She will be discharged today. Exam Alert. Comfortable today. Mucus membranes moist Heart not tachy Lungs diminished but clearer Abd soft No edema Plan D/C today Abx completed here Follow up with PCP Continue Reglan for gastroparesis.
[2017-03-15] MEDS: Levofloxacin 750 MG/150 ML 750 MG/150 ML BAG IVPB SCH (18:09)
== END 2017-03-15 18:17 | disposition home or self-care (01) | DRG 871 ==
LOC: 2NENU 15:32 → EMEROO 15:32 → SUATTDRO 20:00 → 2NENU 20:55
PROVIDERS: ADMIT Family Medicine; ATTEND Internal Medicine

== ENCOUNTER 2017-05-06 17:31 | Observation (INO) ==
[2017-05-06] MEDS ORDERED: Aspirin 81 MG TAB.CHEW PO ONE (17:57)
--- NOTE | 2017-05-06 18:08 | Emergency Department Note ---
Disposition Clinical Impression: Chest pain of uncertain etiology Dyspnea Qualifiers: Dyspnea type: unspecified Qualified Code(s): R06.00 - Dyspnea, unspecified Disposition: Admitted As Inpatient Condition: Fair Time of Disposition: 20:57 Chest Pain HPI - General Chief Complaint: ED Chest Pain Stated Complaint: chest pain, joanie Time Seen by Provider: 05/06/17 17:43 Vital Signs Reviewed: Yes Nursing Notes Reviewed: Yes - History of Present Illness HPI Narrative: Mrs. Vargas, 66-year-old female, presents from home for evaluation of chest pain. Onset one hour prior to arrival. Described as substernal sharp stabbing with radiation interscapular as well as a tingling sensation down her left arm and with her left jaw. Associated with nausea, dyspnea. No diaphoresis. PMH: Hypertension, hyperlipidemia, insulin dependent diabetes. No history of ACS. Patient follows with [facility]. She has a scheduled stress test for next week. Severity scale (1-10): 9 - Related Data Home Medications Medication Instructions Recorded Confirmed Aspirin 81 mg PO DAILY 04/05/15 05/06/17 Atorvastatin [Lipitor] 40 mg PO DAILY 04/05/15 05/06/17 Enalapril Maleate [Vasotec] 5 mg PO DAILY 04/05/15 05/06/17 Insulin LISPRO [HumaLOG] 0 units SQ TIDAC 04/05/15 05/06/17 Topiramate [Topamax] 25 mg PO BID 08/23/15 05/06/17 Ergocalciferol (VITAMIN D2) 50,000 unit PO WE 02/28/16 05/06/17 [Vitamin D2 (50,000 UNIT)] Loperamide HCl [Imodium A-D] 2 mg PO QID PRN 02/28/16 05/06/17 Primidone [Mysoline] 50 mg PO HS 02/28/16 05/06/17 Ascorbic Acid [Vitamin C] 500 mg PO DAILY 03/06/16 05/06/17 Ferrous Sulfate [Iron] 325 mg PO DAILY 03/06/16 05/06/17 Fluticasone Propionate Nasal 2 spray NS DAILY 11/26/16 05/06/17 [Flonase] Insulin Glargine/Lixisenatide 60 unit SQ HS 11/26/16 05/06/17 [[place] 100 Unit-33 Mcg/ml Pen] Tramadol HCl [Ultram] 50 mg PO TID 11/26/16 05/06/17 Cyanocobalamin (Vitamin B-12) 500 mcg PO DAILY 05/06/17 05/06/17 [Vitamin B-12] Furosemide [Lasix] 20 mg PO DAILY PRN 05/06/17 05/06/17 Linagliptin [Tradjenta] 5 mg PO DAILY 05/06/17 05/06/17 Loratadine [Claritin] 10 mg PO DAILY 05/06/17 05/06/17 Metoclopramide [Reglan] 10 mg PO Q6HR 05/06/17 05/06/17 Metoprolol XL (24 HR) Succ [Toprol 25 mg PO DAILY 05/06/17 05/06/17 XL] Pioglitazone [Actos] 15 mg PO 0800 05/06/17 05/06/17 Pregabalin [Lyrica] 75 mg PO TID 05/06/17 05/06/17 Sucralfate [Carafate] 1 gm PO QID 05/06/17 05/06/17 Previous Rx's Medication Instructions Recorded Folic Acid 1 mg PO DAILY #30 tablet 09/18/15 Omeprazole [PriLOSEC] 40 mg PO DAILY #30 cap 03/15/17 Ondansetron [Zofran] 4 mg PO Q8HR #20 tablet 03/15/17 Allergies Allergy/AdvReac Type Severity Reaction Status Date / Time metformin Allergy Nausea Verified 03/09/17 15:34 Sulfa (Sulfonamide Allergy Nausea Verified 03/09/17 15:34 Antibiotics) sulfamethoxazole Allergy Nausea Verified 03/09/17 15:34 [From Bactrim] trimethoprim [From Bactrim] Allergy Nausea Verified 03/09/17 15:34 All systems ED: reviewed and negative except as stated. Review of Systems: As Per HPI Constitutional: Denies: fever, chills, weakness Cardiovascular: Reports: chest pain Respiratory: Reports: dyspnea. Denies: cough, wheezes, hemoptysis Gastrointestinal: Denies: abdominal pain, nausea, vomiting Musculoskeletal: Denies: back pain, neck pain Integumentary: Denies: rash Chest Pain PMH - Past Medical History Medical history: Reports: cancer, coronary artery disease, diabetes, hypertension, renal disease, other Surgical history: Reports: cholecystectomy, THERESE/BSO, other Psychiatric history: Reports: no psych history TALENT DIRECTOR history: Reports: no TALENT DIRECTOR history - Social History Smoking Status: Never smoker Alcohol use: Reports: none Drug use: Reports: none Physical Exam Vital Signs Reviewed General: Patient is alert, oriented, and in no acute distress. HEENT: No facial asymmetry. Head is normocephalic and atraumatic. Oral mucosa moist. Trachea midline. Cardiovascular: Heart regular rate and rhythm without clicks, rubs, gallops, or murmurs. No JVD. PMI nondisplaced. Lateral radial pulses 2/4 and equal. Respiratory: Symmetric chest rise with good respiratory effort. Bilateral breath sounds are clear without wheezing, crackles, or rhonchi. Abdomen: Bowel sounds present normoactive x-4 quadrants. Abdomen is soft, nondistended, and nontender. No organomegaly noted. Musculoskeletal: Spontaneously moving all extremities. Neuro: Cranial nerves II through XII without deficit. Sensation light touch intact. skin: Warm, dry, intact Psych: Patient's affect is appropriate for situation. - General General appearance: alert, anxious Course Course Narrative: Patient's initial presentation is concerning for ACS. Will perform chest pain workup. Patient's EKG shows no changes from previous. Initial troponin is 0.0. Patient 's history of present illness and risk factors are concerning enough that, after discussion, she is agreeable to admission for continued evaluation and management. I discussed the patient with the admitting hospitalist, Dr. Saini, who agrees to accept the patient for continued evaluation and management of chest pain of uncertain etiology to rule out acute coronary syndrome. Vital Signs Temperature 98 F 05/06/17 17:45 Pulse Rate 84 05/06/17 17:45 Respiratory Rate 20 05/06/17 17:45 Blood Pressure 145/76 05/06/17 17:45 O2 Sat by Pulse Oximetry 97 05/06/17 17:45 Temperature 98.2 F 05/06/17 21:47 Pulse Rate 80 05/06/17 21:47 Respiratory Rate 16 05/06/17 21:47 Blood Pressure 128/79 05/06/17 21:47 O2 Sat by Pulse Oximetry 95 05/06/17 21:47 Oxygen Delivery Oxygen Delivery Room Air Chest Pain - Medical Records Medical records reviewed: Yes I reviewed the patient's medical records. - Lab Data Lab results reviewed: Yes I reviewed the patient's lab results. Result diagrams: 05/06/17 18:07 05/06/17 18:07 Lab Results 05/06/17 05/06/17 05/06/17 Range/Units 18:07 18:07 18:07 WBC 15.9 H (4.3-11.1) K/mcL RBC 3.82 (3.82-4.97) M/mcL Hgb 11.1 L (11.5-15.4) g/dL Hct 35.0 L (35.3-44.9) % MCV 91.6 (83.0-100.0) fL MCH 29.1 (28.0-33.3) pg MCHC 31.7 (31.6-35.5) g/dL RDW 15.2 H (11.5-14.5) % Plt Count 136 L (140-400) K/mcL MPV 10.5 (9.4-12.4) fL Seg Neutrophils % 28.0 % Lymphocytes % 68.0 % Monocytes % 4.0 % Neutrophils # 4.5 (1.6-8.9) K/mcL Lymphocytes # 10.8 H (0.6-4.6) K/mcL Monocytes # 0.6 (0.0-1.3) K/mcL Nucleated RBCs/100 WBC 0.1 H (0) /100 WBC Reactive Lymphocytes Present A (Not Present) Smudge Cells Present A (Not Present) Toxic Granulation Present A (Not Present) Platelet Estimate Slight Decrease L (Normal) PT 9.5 (9.4-12.1) Seconds INR 0.9 APTT 28.1 (26.0-36.0) Seconds Sodium 139 (136-145) mEq/L Potassium 4.3 (3.5-4.5) mEq/L Chloride 106 (98-109) mEq/L Carbon Dioxide 25 (19-29) mEq/L BUN 16 (7-20) mg/dL Creatinine 1.05 (0.57-1.11) mg/dL Est GFR ( Amer) > 60 (> 60) Est GFR (Non-Af Amer) 53 L (> 60) BUN/Creatinine Ratio 15 (6-26) Glucose 231 H (70-99) mg/dL Calculated Osmolality 297 (280-300) Calcium 8.9 (8.6-10.8) mg/dL Troponin I (0-0.03) ng/mL 05/06/17 Range/Units 18:07 WBC (4.3-11.1) K/mcL RBC (3.82-4.97) M/mcL Hgb (11.5-15.4) g/dL Hct (35.3-44.9) % MCV (83.0-100.0) fL MCH (28.0-33.3) pg MCHC (31.6-35.5) g/dL RDW (11.5-14.5) % Plt Count (140-400) K/mcL MPV (9.4-12.4) fL Seg Neutrophils % % Lymphocytes % % Monocytes % % Neutrophils # (1.6-8.9) K/mcL Lymphocytes # (0.6-4.6) K/mcL Monocytes # (0.0-1.3) K/mcL Nucleated RBCs/100 WBC (0) /100 WBC Reactive Lymphocytes (Not Present) Smudge Cells (Not Present) Toxic Granulation (Not Present) Platelet Estimate (Normal) PT (9.4-12.1) Seconds INR APTT (26.0-36.0) Seconds Sodium (136-145) mEq/L Potassium (3.5-4.5) mEq/L Chloride (98-109) mEq/L Carbon Dioxide (19-29) mEq/L BUN (7-20) mg/dL Creatinine (0.57-1.11) mg/dL Est GFR ( Amer) (> 60) Est GFR (Non-Af Amer) (> 60) BUN/Creatinine Ratio (6-26) Glucose (70-99) mg/dL Calculated Osmolality (280-300) Calcium (8.6-10.8) mg/dL Troponin I 0.00 (0-0.03) ng/mL - Radiology Data Radiology results reviewed: Yes I reviewed the patient's radiology results. - EKG Data EKG attestation: Yes I reviewed and interpreted this EKG. EKG results narrative: EKG dated 05/06/17 at 17:43 interpreted as sinus rhythm. Rate of 77. Short IN interval of 113. Dur[place] 1, QT/QTC 352/34. Normal axis. T-wave inversion in V1 and V2 with T-wave flattening in V3. Otherwise nonspecific ST-T changes. Compared to previous EKG dated 03/11/2017 showing upright T waves in precordial leads with T-wave flattening in V1 and V2. New EKG concerning for precordial T-wave inversion and flattening. Heart Score - Score History: Highly Suspicious EKG: Non Specific repolarisation Disturbance Age: 45-65 Risk Factors: Equal/Greater than 3 risk factor or history of atherosclerotic disease Troponin: Less than normal limit HEART Score Total: 6 Attestation Statement - Attestation Attestation: I, Aj Dent, examined this patient and my medical decision-making was reviewed with the [employer] H[employer]ORY TEACHER/PA/Advanced Practice Nurse/Resident Physician. I agree with the documented findings, disposition and treatment plan as described except to the extent set forth below. 66-year-old female presents to the emergency Department with concerns of substernal chest pain which radiates to her back. Chest is associated with shortness of breath and palpitations however she denies diaphoresis. Patient states the symptoms now occur at rest and have worsened over the past week. 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 Initial troponin negative. EKG shows T-wave inversions but no STEMI. He is comfortable with the plan for admission to hospital for continuation of her care.
[2017-05-06 18:16] LABS: Hemoglobin 11.1 g/dL (11.5-15.4); Lymphocytes # 10.8 K/mcL (0.6-4.6); Mean Corpuscular HGB Conc 31.7 g/dL (31.6-35.5); Mean Corpuscular Hemoglobin 29.1 pg (28.0-33.3); Mean Corpuscular Volume 91.6 fL (83.0-100.0); Mean Platelet Volume 10.5 fL (9.4-12.4); Nucleated Red Blood Cells 0.1 /100 WBC (0); Platelet Count 136 K/mcL (140-400); Red Blood Count 3.82 M/mcL (3.82-4.97); Red Cell Distribution Width 15.2 % (11.5-14.5)
[2017-05-06 18:22] LABS: INR 0.9; Prothrombin Time 9.5 Seconds (9.4-12.1)
[2017-05-06 18:25] LABS: Activated Partial Thrombo Time 28.1 Seconds (26.0-36.0)
[2017-05-06 18:28] LABS: BUN/Creatinine Ratio 15 (6-26); Blood Urea Nitrogen 16 mg/dL (7-20); Calcium 8.9 mg/dL (8.6-10.8); Carbon Dioxide 25 mEq/L (19-29); Chloride 106 mEq/L (98-109); Glucose 231 mg/dL (70-99); Osmolality,Calculated 297 (280-300); Potassium 4.3 mEq/L (3.5-4.5); Sodium 139 mEq/L (136-145); eGFR For African Americans > 60 (> 60); eGFR For Non-African Americans 53 (> 60)
[2017-05-06 18:35] LABS: Monocytes # 0.6 K/mcL (0.0-1.3); Neutrophils # 4.5 K/mcL (1.6-8.9); Platelet Estimate Slight Decrease (Normal); Reactive Lymphocytes Present (Not Present); Smudge Cells Present (Not Present); Toxic Granulation Present (Not Present)
[2017-05-06] MEDS: Nitroglycerin 0.4 MG TAB.SUBL SL ONE ×3 (18:40→19:14)
[2017-05-06] MEDS ORDERED: Primidone 50 MG TABLET PO SCH (22:30)
[2017-05-06] MEDS ORDERED: Furosemide 20 MG TABLET PO PRN (22:30)
[2017-05-06] MEDS ORDERED: Ondansetron 4 MG/2 ML VIAL IVP PRN (22:33)
[2017-05-06] MEDS ORDERED: Acetaminophen 325 MG TABLET PO PRN (22:33)
[2017-05-06] MEDS ORDERED: *HR* OxyCODONE Immed Rel 5 MG TABLET PO PRN (22:33)
[2017-05-06] MEDS ORDERED: Naloxone 0.4 MG/ML INJ IVP PRN (22:33)
[2017-05-06] MEDS ORDERED: Dextrose Gel 15 GM PO PRN ×2 (22:35)
[2017-05-06] MEDS ORDERED: D5% in Water 1,000 ML IVC PRN (22:35)
[2017-05-06] MEDS ORDERED: *HR* Dextrose 50 % in Water (Syg) 50 ML SYRINGE IVP PRN (22:35)
[2017-05-06] MEDS ORDERED: Insulin LISPRO 300 UNITS/3 ML VIAL SQ SCH (22:45)
--- NOTE | 2017-05-06 23:15 | Internal Med History&Physical ---
Date of Encounter: 05/07/17 Time of Encounter: 23:14 Assessment and Plan (1) DVT prophylaxis Current visit: No Status: Acute Encourage ambulation. Short stay expected and therefore does not require pharmacological prophylaxis. (2) CLL (chronic lymphocytic leukemia) Current visit: No Status: Chronic Outpatient follow-up. (3) HTN (hypertension) Current visit: No Status: Chronic We will controlled with lisinopril and metoprolol. Qualifiers: Hypertension type: essential hypertension Qualified Code(s): I10 - Essential (primary) hypertension (4) Obesity (BMI 30-39.9) Current visit: No Status: Chronic (5) Type 2 diabetes mellitus Current visit: No Status: Chronic Qualifiers: Diabetes mellitus complication status: with hyperglycemia Diabetes mellitus alf insulin use: with alf use Qualified Code(s): E11.65 - Type 2 diabetes mellitus with hyperglycemia; Z79.4 - FPC (current) use of insulin (6) Chest pain Current visit: No Status: Resolved Trend troponin. Monitor on telemetry. Obtain stress test in the morning. Obtain echocardiogram. Qualifiers: Chest pain type: precordial pain Qualified Code(s): R07.2 - Precordial pain Internal Medicine - H&P: HPI Chief complaint: Chest pain Admitted From: Emergency Dept Plans for Post Hospital Care: Home History of present illness: Ms. Vargas is a 66 year old female with past medical history significant for hypertension, diabetes who presented to the hospital for evaluation of chest pain. She states that the chest pain started yesterday at while at rest, located in the substernal area, I was severe, sharp in nature radiating to the back. Chest pain was associated with shortness of breath. The pain eventually improved with nitroglycerin and morphine which she was administered in the emergency department. Review of systems positive for chest pain or lower extremity swelling otherwise negative Surgical history: Cholecystectomy, appendectomy, hysterectomy Family history: Patient's father suffered with diabetes and coronary artery disease Social history she ambulates with a walker, she denies tobacco alcohol or drug use. Lives at home with family. Past Med Surg Social Fam HX - Past Medical History Medical history: cancer, coronary artery disease, diabetes, hypertension, renal disease, other Psychiatric history: no psych history - Past Surgical History Surgical History: cholecystectomy, THERESE/BSO, other - Social History Smoking Status: Never smoker Smokeless Tobacco Status: No Alcohol use: none Drug use: none - Family History Mother Living Status: Hx Family Endocrine Disorder: Yes Father Living Status: Hx Family Cardiac Disorders: Yes Hx Family Respiratory Disorders: No Hx Family Cancer: Yes Hx Family GI Disorders: Yes Hx Family Endocrine Disorder: Yes Hx Family Neuromuscular Disorders: No Hx Family Neurologic Disorders: Yes Hx Family HEENT Disorders: No Hx Family Autoimmune Disorders: No Internal Medicine - H&P: Meds Aspirin 81 mg PO DAILY 04/05/15 [History] Atorvastatin [Lipitor] 40 mg PO DAILY 04/05/15 [History] Enalapril Maleate [Vasotec] 5 mg PO DAILY 04/05/15 [History] Insulin LISPRO [HumaLOG] 0 units SQ TIDAC 04/05/15 [History] Topiramate [Topamax] 25 mg PO BID 08/23/15 [History] Folic Acid 1 mg PO DAILY #30 tablet 09/18/15 [Rx] Ergocalciferol (VITAMIN D2) [Vitamin D2 (50,000 UNIT)] 50,000 unit PO WE [History] Loperamide HCl [Imodium A-D] 2 mg PO QID PRN 02/28/16 [History] Primidone [Mysoline] 50 mg PO HS 02/28/16 [History] Ascorbic Acid [Vitamin C] 500 mg PO DAILY 03/06/16 [History] Ferrous Sulfate [Iron] 325 mg PO DAILY 03/06/16 [History] Fluticasone Propionate Nasal [Flonase] 2 spray NS DAILY 11/26/16 [History] Insulin Glargine/Lixisenatide [Soliqua 100 Unit-33 Mcg/ml Pen] 60 unit SQ HS [History] Tramadol HCl [Ultram] 50 mg PO TID 11/26/16 [History] Omeprazole [PriLOSEC] 40 mg PO DAILY #30 cap 03/15/17 [Rx] Ondansetron [Zofran] 4 mg PO Q8HR #20 tablet 03/15/17 [Rx] Cyanocobalamin (Vitamin B-12) [Vitamin B-12] 500 mcg PO DAILY 05/06/17 [History] Furosemide [Lasix] 20 mg PO DAILY PRN 05/06/17 [History] Linagliptin [Tradjenta] 5 mg PO DAILY 05/06/17 [History] Loratadine [Claritin] 10 mg PO DAILY 05/06/17 [History] Metoclopramide [Reglan] 10 mg PO Q6HR 05/06/17 [History] Metoprolol XL (24 HR) Succ [Toprol XL] 25 mg PO DAILY 05/06/17 [History] Pioglitazone [Actos] 15 mg PO 0800 05/06/17 [History] Pregabalin [Lyrica] 75 mg PO TID 05/06/17 [History] Sucralfate [Carafate] 1 gm PO QID 05/06/17 [History] 3 Allergy/AdvReac Type Severity Reaction Status Date / Time metformin Allergy Nausea Verified 03/09/17 15:34 Sulfa (Sulfonamide Allergy Nausea Verified 03/09/17 15:34 Antibiotics) sulfamethoxazole Allergy Nausea Verified 03/09/17 15:34 [From Bactrim] trimethoprim [From Bactrim] Allergy Nausea Verified 03/09/17 15:34 All Systems PM: A 10-system review of systems was performed and is negative for pertinent findings except as documented above in the HPI. - Constitutional Vitals: Temp Pulse Resp BP Pulse Ox 98.2 F 80 16 128/79 95 05/06/17 21:47 05/06/17 21:47 05/06/17 21:47 05/06/17 21:47 05/06/17 21:47 General appearance: Present: A&O X 3 - Eye Eye exam: Present: PERRL, conjuntiva pink, sclera anicteric Pupils: Present: PERRL - Cardiovascular Cardiovascular exam: Present: RRR, +S1, +S2. Absent: diastolic murmur, gallop, rubs, systolic murmur - GI/Abdominal GI/Abdominal exam: Present: normal bowel sounds, soft, no peritoneal signs. Absent: distended, tenderness - Extremities Exam Extremities exam: Present: pedal edema, warm, radial pulses palpable and symmetrical. Absent: calf tenderness, cyanotic - Neurological Exam Neurological exam: Present: CN II-XII intact, oriented X3, no focal deficits. Absent: pronater drift, facial droop, speech deficit - Skin Skin exam: Present: dry, intact Internal Med - H&P Results - Labs CBC & Chem 7: 05/06/17 18:07 05/06/17 18:07 - EKG Data -: EKG Interpreted by Myself EKG shows normal: sinus rhythm (Low voltage QRS, no ST or T-wave changes)
[2017-05-06] MEDS: Insulin DETEMIR 100 UNIT/ML X5UNITS SQ SCH (23:54)
[2017-05-06] MEDS: Topiramate 25 MG TABLET PO SCH (23:54)
[2017-05-06] MEDS: Metoclopramide 10 MG/10 ML UD.LIQ PO SCH (23:54)
[2017-05-06] MEDS: Insulin LISPRO 300 UNITS/3 ML VIAL SQ SCH (23:55)
[2017-05-07 00:02] LABS: Hemoglobin A1C 6.7 %
[2017-05-07] MEDS: *HR* Morphine 2 MG/ML SYRINGE IVP PRN ×3 (00:02→13:36)
[2017-05-07 05:25] LABS: Hematocrit 31.9 % (35.3-44.9); Hemoglobin 10.1 g/dL (11.5-15.4); Mean Corpuscular HGB Conc 31.7 g/dL (31.6-35.5); Mean Corpuscular Hemoglobin 28.9 pg (28.0-33.3); Mean Corpuscular Volume 91.4 fL (83.0-100.0); Mean Platelet Volume 10.9 fL (9.4-12.4); Nucleated Red Blood Cells 0.2 /100 WBC (0); Platelet Count 122 K/mcL (140-400); Red Blood Count 3.49 M/mcL (3.82-4.97); Red Cell Distribution Width 15.2 % (11.5-14.5)
[2017-05-07] MEDS: Metoclopramide 10 MG/10 ML UD.LIQ PO SCH ×2 (05:38→13:34)
[2017-05-07 05:42] LABS: BUN/Creatinine Ratio 22 (6-26); Blood Urea Nitrogen 18 mg/dL (7-20); Calcium 9.1 mg/dL (8.6-10.8); Carbon Dioxide 26 mEq/L (19-29); Chloride 108 mEq/L (98-109); Glucose 113 mg/dL (70-99); Osmolality,Calculated 295 (280-300); Potassium 3.6 mEq/L (3.5-4.5); Sodium 141 mEq/L (136-145); eGFR For African Americans > 60 (> 60); eGFR For Non-African Americans > 60 (> 60)
[2017-05-07 06:04] LABS: Basophils # 0.3 K/mcL (0.0-0.2); Eosinophils # 0.3 K/mcL (0.0-0.6); Lymphocytes # 8.1 K/mcL (0.6-4.6); Neutrophils # 2.7 K/mcL (1.6-8.9)
[2017-05-07 06:05] LABS: Platelet Estimate Slight Decrease (Normal)
[2017-05-07 06:06] LABS: Reactive Lymphocytes Present (Not Present); Smudge Cells Present (Not Present); Toxic Granulation Present (Not Present)
[2017-05-07] MEDS: Insulin LISPRO 300 UNITS/3 ML VIAL SQ SCH ×4 (08:34→12:00)
[2017-05-07] MEDS ORDERED: Aspirin 81 MG TAB.CHEW PO SCH (09:00)
[2017-05-07] MEDS ORDERED: Metoprolol XL (24 HR) Succ 25 MG TAB.ER.24H PO SCH (09:00)
[2017-05-07] MEDS ORDERED: Loratadine 10 MG TABLET PO SCH (09:00)
[2017-05-07] MEDS ORDERED: Regadenoson 0.4 MG/5 ML SYRINGE IVP ONE (09:58)
[2017-05-07] MEDS: traMADol 50 MG TABLET PO SCH ×2 (13:32→15:08)
[2017-05-07] MEDS: Pregabalin 75 MG CAPSULE PO SCH ×2 (13:33→15:08)
[2017-05-07] MEDS: Topiramate 25 MG TABLET PO SCH (13:33)
[2017-05-07 15:13] VITALS: BP 107/56
[2017-05-07] MEDS: Insulin DETEMIR 100 UNIT/ML X5UNITS SQ SCH (15:15)
--- NOTE | 2017-05-07 16:31 | Discharge Summary ---
Date of Encounter: 05/07/17 Time of Encounter: 16:30 - Discharge Diagnosis (1) Chest pain Priority: Primary Status: Resolved Comments: Patient denies chest pain today. She states that she has had chest pain frequently for the last 2-3 months. This time duration was longer and intensity was stronger. Onset of chest pain this episode was day before arrival while at rest, it is midsternal, sharp in nature with radiation to the back. She did have shortness of breath. She says that she was tearful and anxious due to the pain. She reports relief with nitroglycerin and morphine in the emergency department. She has had no chest pain since that time. Chest x-ray was negative. Troponins were negative 3. Echocardiogram showed LVEF of 60-65% with mild LV DD, no significant valvular dysfunction, normal motion in all wall segments. Stress test negative for ischemia or infarct, and no chest pain with the stress test, no evidence of TID. Gated EF is greater than 70%. Patient reports that she has chronic back pain and believes sometimes the chest pain radiates from the back into the chest. The pain is not reproducible with palpation, movement, or deep inspiration. Patient already has a follow-up appointment with cardiology as she was supposed to have a stress test next week. I have encouraged her to keep that appointment and follow-up. Her lungs are clear throughout, she has no peripheral edema. Continue aspirin, statin, beta hai. Chest X-Ray 05/06/17 17:57 IMPRESSION: No acute process. D/ / Sony Reyez MD / Sony Reyez MD Interpreting Provider: Sony Reyez MD Echocardiogram 05/07/17 05:32 Impressions: LVEF 60-65%. Mild left ventricular diastolic dysfunction. Mild pulmonary hypertension. No significant valvular dysfunction. Left Ventricular Wall Motion: Rest Echo Findings All wall segments showed normal motion. Qualifiers: Chest pain type: precordial pain Qualified Code(s): R07.2 - Precordial pain (2) CAD (coronary artery disease) Priority: Secondary Status: Chronic Comments: Plan as above. Continue home medications. Qualifiers: Coronary Disease-Associated Artery/Lesion type: [place] artery [place] vs. transplanted heart: [place] heart Associated angina: without angina Qualified Code(s): I25.10 - Atherosclerotic heart disease of [place] coronary artery without angina pectoris (3) DM2 (diabetes mellitus, type 2) Priority: Secondary Status: Chronic Comments: A1c was 6.7%. Continue home medications, Accu-Cheks per home regimen. Diabetic diet will be helpful in monitoring. Follow-up with primary care for continued monitoring and support. 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 (5) HTN (hypertension) Priority: Secondary Status: Chronic Comments: Well controlled. Continue home medications. Qualifiers: Hypertension type: essential hypertension Qualified Code(s): I10 - Essential (primary) hypertension (6) CLL (chronic lymphocytic leukemia) Priority: Secondary Status: Chronic (7) Obesity (BMI 30-39.9) Priority: Secondary Status: Chronic Comments: Chronic. Lifestyle changes. - Discharge Medications Home Medications: Aspirin 81 mg PO DAILY 04/05/15 [History] Atorvastatin [Lipitor] 40 mg PO DAILY 04/05/15 [History] Enalapril Maleate [Vasotec] 5 mg PO DAILY 04/05/15 [History] Insulin LISPRO [HumaLOG] 0 units SQ TIDAC 04/05/15 [History] Topiramate [Topamax] 25 mg PO BID 08/23/15 [History] Folic Acid 1 mg PO DAILY #30 tablet 09/18/15 [Rx] Ergocalciferol (VITAMIN D2) [Vitamin D2 (50,000 UNIT)] 50,000 unit PO WE [History] Loperamide HCl [Imodium A-D] 2 mg PO QID PRN 02/28/16 [History] Primidone [Mysoline] 50 mg PO HS 02/28/16 [History] Ascorbic Acid [Vitamin C] 500 mg PO DAILY 03/06/16 [History] Ferrous Sulfate [Iron] 325 mg PO DAILY 03/06/16 [History] Fluticasone Propionate Nasal [Flonase] 2 spray NS DAILY 11/26/16 [History] Insulin Glargine/Lixisenatide [Soliqua 100 Unit-33 Mcg/ml Pen] 60 unit SQ HS [History] Tramadol HCl [Ultram] 50 mg PO TID 11/26/16 [History] Omeprazole [PriLOSEC] 40 mg PO DAILY #30 cap 03/15/17 [Rx] Ondansetron [Zofran] 4 mg PO Q8HR #20 tablet 03/15/17 [Rx] Cyanocobalamin (Vitamin B-12) [Vitamin B-12] 500 mcg PO DAILY 05/06/17 [History] Furosemide [Lasix] 20 mg PO DAILY PRN 05/06/17 [History] Linagliptin [Tradjenta] 5 mg PO DAILY 05/06/17 [History] Loratadine [Claritin] 10 mg PO DAILY 05/06/17 [History] Metoclopramide [Reglan] 10 mg PO Q6HR 05/06/17 [History] Metoprolol XL (24 HR) Succ [Toprol Xl] 25 mg PO DAILY 05/06/17 [History] Pioglitazone [Actos] 15 mg PO 0800 05/06/17 [History] Pregabalin [Lyrica] 75 mg PO TID 05/06/17 [History] Sucralfate [Carafate] 1 gm PO QID 05/06/17 [History] Allergies/Adverse Reactions: 3 Allergy/AdvReac Type Severity Reaction Status Date / Time metformin Allergy Nausea Verified 03/09/17 15:34 Sulfa (Sulfonamide Allergy Nausea Verified 03/09/17 15:34 Antibiotics) sulfamethoxazole Allergy Nausea Verified 03/09/17 15:34 [From Bactrim] trimethoprim [From Bactrim] Allergy Nausea Verified 03/09/17 15:34 Procedures/tests Complete & Pending: Procedures Performed prior 72 hours Category Date Time Status NM lisa perf SPECT multi [NM] Routine Exams 05/07/17 05:32 Taken EV echocardiogram Routine Y 05/07/17 05:32 Completed SP pharm nuclear stress Routine Y 05/07/17 05:31 Completed Date of admission: 05/06/17 19:48 Primary care physician: Mariaelena Vasquez CNP Discharging clinician: Wendy Guerrero Anticipated date of discharge: 05/07/17 - Patient Status Disposition: Home, Self-Care Condition: Good Functional capacity at discharge: independent ambulation Overall status at discharge: patient is back to baseline - Discharge Instructions Follow Up With: Mariaelena Vasquez CNP [Primary Care Provider] - Additional Instructions: Follow up with your primary care provider in the next 7-10 days for a follow-up visit and recheck. Resume your normal home medications, diet, and activities as tolerated. Return to the emergency department as needed for any other problems or concerns , or if symptoms return or worsen. - Diet and Activity Activity: increase activity as tolerated Diet: advance to your usual diet Interval History: Please see assessment and plan for hospital course. Hospital course: Ms. Vargas is a 66 year old female - Time Spent with Patient Total time spent providing and/or coordinating discharge services: - Constitutional Vitals: Temp Pulse Resp BP Pulse Ox 98.2 F 83 15 107/56 92 05/07/17 15:11 05/07/17 15:11 05/07/17 15:11 05/07/17 15:11 05/07/17 15:11 General appearance: Present: cooperative, A&O X 3, pleasant, no acute distress, answers questions appropriately - Head Head exam: Present: atraumatic, normal inspection, normocephalic - Eye Eye exam: Present: normal appearance, conjuntiva pink, sclera anicteric - Neck Neck exam general surgery: Present: normal inspection, supple, trachea midline. Absent: lymphadenopathy, tenderness - Respiratory Respiratory exam: Present: CTAB. Absent: accessory muscle use, rales, respiratory distress, rhonchi, wheezes - Cardiovascular Cardiovascular exam: Present: RRR, +S1, +S2. Absent: diastolic murmur, gallop, rubs, systolic murmur - GI/Abdominal GI/Abdominal exam: Present: normal bowel sounds, soft. Absent: distended, hepatomegaly, tenderness - Extremities Exam Extremities exam: Present: normal capillary refill, warm, radial pulses palpable and symmetrical. Absent: calf tenderness, cyanotic, pedal edema, tenderness - Neurological Exam Neurological exam: Present: alert, oriented X3, no focal deficits, pronater drift. Absent: facial droop, speech deficit - Skin Skin exam: Present: dry, intact, normal color, warm. Absent: rash
--- NOTE | 2017-05-08 14:05 | Electrocardiograph Report ---
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
== END 2017-05-07 17:36 | disposition home or self-care (01) ==
LOC: EMEROO 17:31 → 3BNU 17:31
PROVIDERS: ADMIT Internal Medicine; ATTEND Registered Nurse

== ENCOUNTER 2017-07-07 20:38 | Inpatient (IN) ==
[2017-07-07] MEDS ORDERED: 0.9 % Sodium Chloride 1,000 ML IVC ONE (20:54)
[2017-07-07 21:10] LABS: Hematocrit 39.7 % (35.3-44.9); Hemoglobin 12.8 g/dL (11.5-15.4); Mean Corpuscular HGB Conc 32.2 g/dL (31.6-35.5); Mean Corpuscular Hemoglobin 28.9 pg (28.0-33.3); Mean Corpuscular Volume 89.6 fL (83.0-100.0); Mean Platelet Volume 10.8 fL (9.4-12.4); Monocytes # 0.5 K/mcL (0.0-1.3); Nucleated Red Blood Cells 0.1 /100 WBC (0); Platelet Count 171 K/mcL (140-400); Red Blood Count 4.43 M/mcL (3.82-4.97); Red Cell Distribution Width 14.2 % (11.5-14.5)
--- NOTE | 2017-07-07 21:18 | Emergency Department Note ---
Disposition Clinical Impression: Elevated serum creatinine, Elevated beta-hydroxybutyric acid level Pneumonia Qualifiers: Pneumonia type: due to unspecified organism Laterality: unspecified laterality Lung location: lower lobe of lung Qualified Code(s): J18.1 - Lobar pneumonia, unspecified organism Intractable nausea and vomiting Qualifiers: Vomiting type: unspecified Qualified Code(s): R11.2 - Nausea with vomiting, unspecified Leukocytosis Qualifiers: Leukocytosis type: bandemia Qualified Code(s): D72.825 - Bandemia UTI (urinary tract infection) Qualifiers: Urinary tract infection type: site unspecified Hematuria presence: with hematuria Qualified Code(s): N39.0 - Urinary tract infection, site not specified Disposition: Admitted As Inpatient Condition: Fair Time of Disposition: 00:30 Abdominal Pain HPI - General Chief Complaint: ED Abdominal Pain Stated Complaint: abdominal pain dx with pneumonia yesterday Time Seen by Provider: 07/07/17 20:41 Source: patient Mode of arrival: EMS Limitations: no limitations Nursing Notes Reviewed: Yes Vital Signs Reviewed: Yes - History of Present Illness HPI Narrative: Patient is a 66-year-old female complains of worsening abdominal pain from yesterday. Patient states her pain is 10 out of 10 sharp and goes across her abdomen. Patient states that she was evaluated in this emergency department one day ago for her abdominal pain symptoms with accompanying nausea and vomiting and was found to have a lingular pneumonia and was placed on levofloxacin. Patient returns today for worsening pain symptoms and inability to tolerate by mouth secondary to nausea and vomiting. Patient also complains of generalized weakness and severe fatigue. Patient has a history of insulin-dependent diabetes. Pain Scale: 10 - Related Data Home Medications Medication Instructions Recorded Confirmed Aspirin 81 mg PO DAILY 04/05/15 07/07/17 Atorvastatin [Lipitor] 40 mg PO DAILY 04/05/15 07/07/17 Enalapril Maleate [Vasotec] 5 mg PO DAILY 04/05/15 07/07/17 Insulin LISPRO [HumaLOG] 0 units SQ TIDAC 04/05/15 07/07/17 Topiramate [Topamax] 25 mg PO BID 08/23/15 07/07/17 Ergocalciferol (VITAMIN D2) 50,000 unit PO WE 02/28/16 07/07/17 [Vitamin D2 (50,000 UNIT)] Loperamide HCl [Imodium A-D] 2 mg PO QID PRN 02/28/16 07/07/17 Primidone [Mysoline] 50 mg PO HS 02/28/16 07/07/17 Ascorbic Acid [Vitamin C] 500 mg PO DAILY 03/06/16 07/07/17 Ferrous Sulfate [Iron] 325 mg PO DAILY 03/06/16 07/07/17 Fluticasone Propionate Nasal 2 spray NS DAILY 11/26/16 07/07/17 [Flonase] Insulin Glargine/Lixisenatide 60 unit SQ HS 11/26/16 07/07/17 [Soliqua 100 Unit-33 Mcg/ml Pen] Tramadol HCl [Ultram] 50 mg PO TID 11/26/16 07/07/17 Cyanocobalamin (Vitamin B-12) 500 mcg PO DAILY 05/06/17 07/07/17 [Vitamin B-12] Furosemide [Lasix] 20 mg PO DAILY PRN 05/06/17 07/07/17 Linagliptin [Tradjenta] 5 mg PO DAILY 05/06/17 07/07/17 Loratadine [Claritin] 10 mg PO DAILY 05/06/17 07/07/17 Metoclopramide [Reglan] 10 mg PO Q6HR 05/06/17 07/07/17 Metoprolol XL (24 HR) Succ [Toprol 25 mg PO DAILY 05/06/17 07/07/17 Xl] Pioglitazone [Actos] 15 mg PO 0800 05/06/17 07/07/17 Pregabalin [Lyrica] 75 mg PO TID 05/06/17 07/07/17 Sucralfate [Carafate] 1 gm PO QID 05/06/17 07/07/17 Magnesium Oxide [Magnesium] 400 mg PO DAILY 07/07/17 07/07/17 Previous Rx's Medication Instructions Recorded Folic Acid 1 mg PO DAILY #30 tablet 09/18/15 Omeprazole [PriLOSEC] 40 mg PO DAILY #30 cap 03/15/17 Ondansetron ODT [Zofran ODT] 4 mg SL Q6HR PRN #14 tab.rapdis 07/06/17 levoFLOXacin [Levaquin] 750 mg PO DAILY #5 tablet 07/06/17 Allergies Allergy/AdvReac Type Severity Reaction Status Date / Time metformin Allergy Nausea Verified 07/06/17 04:30 Sulfa (Sulfonamide Allergy Nausea Verified 07/06/17 04:30 Antibiotics) sulfamethoxazole Allergy Nausea Verified 07/06/17 04:30 [From Bactrim] trimethoprim [From Bactrim] Allergy Nausea Verified 07/06/17 04:30 All systems ED: reviewed and negative except as stated. 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 Psychiatric history: Reports: no psych history - Social History Smoking status: Former smoker Alcohol use: Reports: occasionally Drug use: Reports: none Physical Exam Vital Signs Temperature 97.5 F L 07/07/17 20:41 Pulse Rate 90 07/07/17 20:41 Respiratory Rate 16 07/07/17 20:41 Blood Pressure 124/70 07/07/17 20:41 O2 Sat by Pulse Oximetry 94 07/07/17 20:41 Temperature 97.5 F L 07/07/17 20:41 Pulse Rate 73 07/07/17 23:42 Respiratory Rate 18 07/07/17 23:42 Blood Pressure 130/76 07/07/17 23:42 O2 Sat by Pulse Oximetry 95 07/07/17 23:42 Oxygen Delivery Oxygen Delivery Nasal Cannula 66-year-old female who is alert and in acute distress secondary to active nausea vomiting and dry heaving. Patient has no hematemesis. Patient is crying hysterically about her abdominal pain. It has normal vital signs and is afebrile - General Limitations: no limitations General appearance: alert, in no apparent distress - Head Head exam: atraumatic, normocephalic, normal inspection - Eye Eye exam: Present: normal appearance, PERRL, EOMI - ENT ENT exam: normal exam, normal oropharynx, mucous membranes moist - Neck Neck exam: Present: normal inspection, full ROM, trachea midline - Chest Chest inspection: Present: normal inspection, symmetric chest wall rise - Respiratory Respiratory exam: Present: normal lung sounds bilaterally - Cardiovascular Cardiovascular exam: Present: regular rate, normal rhythm, normal heart sounds - Abdominal Exam Abdominal exam: Present: soft, tenderness Abdominal tenderness: Present: diffuse, severe - Extremities Exam Extremities exam: Present: normal inspection, full ROM, normal capillary refill. Absent: tenderness, pedal edema - Back Exam Back exam: Present: normal inspection, full ROM, CVA tenderness (L). Absent: tenderness, CVA tenderness (R) - Skin Skin exam: Present: warm, dry, intact, normal color Course Vital Signs Temperature 97.5 F L 07/07/17 20:41 Pulse Rate 90 07/07/17 20:41 Respiratory Rate 16 07/07/17 20:41 Blood Pressure 124/70 07/07/17 20:41 O2 Sat by Pulse Oximetry 94 07/07/17 20:41 Temperature 97.5 F L 07/07/17 20:41 Pulse Rate 73 07/07/17 23:42 Respiratory Rate 18 07/07/17 23:42 Blood Pressure 130/76 07/07/17 23:42 O2 Sat by Pulse Oximetry 95 07/07/17 23:42 Oxygen Delivery Oxygen Delivery Nasal Cannula Abdominal Pain - MDM Narrative Medical decision making narrative: Patient with known pneumonia presents with worsening abdominal pain and a history of diabetes. Differential diagnosis includes DKA, sepsis, small bowel obstruction, ischemic colitis, diverticulitis. She was started on IV fluid hydration 1 L. Paramedics dispensed Zofran to the patient but she still complains of nausea but patient is not dry heaving. We will treat pain and see if that helps her nausea. 2150: 1 mg dilaudid for pain. 2159 hrs.: After administration of Dilaudid patient is doing much better. Patient's been given 4 mg Zofran IV and is no longer having nausea vomiting or dry heaving. Patient is a very comfortable. 2200: ordered CT abd and pelvis for worsening abd pain. 2220 hrs.: Patient has no complaints and is doing well. Patient is awaiting to go to CT 2230 hrs.: Patient's labs were positive for a WBC of 23.4, patient's electrolytes are fairly unremarkable with a small elevation of creatinine of 1.26 when compared to a previous of 1.09. Patient's beta hydroxybutyric acid is 1.23. VBG shows that patient is not acidotic. Patient does not have an anion gap is not in DKA. 2340 hrs.: Patient has no acute findings on CT abdomen and pelvis. Current plan is for admission. Currently awaiting hospitalist to return call. Current plan is patient to be admitted for inability to tolerate oral intake, secondary to nausea and vomiting. Patient has failed outpatient treatment for her pneumonia and will continue on IV antibiotics of vancomycin and Zosyn. Patient will require abdominal reexamination to monitor for evolution of her abdominal pain symptoms. Dr. Cleaning the hospitalist has accepted patient for admission at 0028 hours - Lab Data Lab results reviewed: Yes I reviewed the patient's lab results. Lab results narrative: Short CBC 07/07/17 Range/Units 21:00 WBC 23.4 H (4.3-11.1) K/mcL Hgb 12.8 (11.5-15.4) g/dL Hct 39.7 (35.3-44.9) % Plt Count 171 (140-400) K/mcL Neutrophils # 9.4 H (1.6-8.9) K/mcL BMP 07/07/17 Range/Units 21:00 Sodium 135 L (136-145) mEq/L Potassium 4.7 (3.5-5.1) mEq/L Chloride 100 (98-107) mEq/L Carbon Dioxide 24 (23-29) mEq/L BUN 22 (8-23) mg/dL Creatinine 1.26 H (0.60-1.20) mg/dL Glucose 191 H (70-105) mg/dL Calcium 9.3 (8.6-10.3) mg/dL Cardiac Enzymes 07/07/17 Range/Units 21:00 Troponin I < 0.03 (< 0.04) ng/mL Liver Function 07/07/17 Range/Units 21:00 Total Bilirubin 0.5 (0.3-1.0) mg/dL Direct Bilirubin 0.1 (0.0-0.2) mg/dL AST 12 L (13-39) Units/L ALT 10 (7-52) Units/L Alkaline Phosphatase 90 (34-104) Units/L Albumin 4.4 (3.5-5.7) g/dL Urine 07/07/17 Range/Units 22:51 Urine Color Yellow (Yellow) Urine Clarity Clear (Clear) Urine pH 6.0 (5.0-8.0) pH Units Ur Specific [place] 1.020 (1.010-1.025) Urine Protein Negative (Neg-Trace) mg/dL Urine Glucose (UA) Normal (Normal) mg/dL Result diagrams: 07/07/17 21:00 07/07/17 21:00 Lab Results 07/07/17 07/07/17 07/07/17 Range/Units 21:00 21:00 21:00 WBC 23.4 H (4.3-11.1) K/mcL RBC 4.43 (3.82-4.97) M/mcL Hgb 12.8 (11.5-15.4) g/dL Hct 39.7 (35.3-44.9) % MCV 89.6 (83.0-100.0) fL MCH 28.9 (28.0-33.3) pg MCHC 32.2 (31.6-35.5) g/dL RDW 14.2 (11.5-14.5) % Plt Count 171 (140-400) K/mcL MPV 10.8 (9.4-12.4) fL Seg Neutrophils % 40.0 % Lymphocytes % 58.0 % Monocytes % 2.0 % Neutrophils # 9.4 H (1.6-8.9) K/mcL Lymphocytes # 13.6 H (0.6-4.6) K/mcL Monocytes # 0.5 (0.0-1.3) K/mcL Nucleated RBCs/100 WBC 0.1 H (0) /100 WBC Reactive Lymphocytes Present A (Not Present) Smudge Cells Present A (Not Present) Platelet Estimate Normal (Normal) VBG pH (7.32-7.42) pH Units VBG pCO2 (41-51) mmHg VBG pO2 (25-50) mmHg VBG HCO3 (21-27) mEq/L Sodium 135 L (136-145) mEq/L Potassium 4.7 (3.5-5.1) mEq/L Chloride 100 (98-107) mEq/L Carbon Dioxide 24 (23-29) mEq/L BUN 22 (8-23) mg/dL Creatinine 1.26 H (0.60-1.20) mg/dL Est GFR ( Amer) 52 L (> 60) Est GFR (Non-Af Amer) 43 L (> 60) BUN/Creatinine Ratio 17 (6-26) Glucose 191 H (70-105) mg/dL Calculated Osmolality 288 (280-300) Lactic Acid (0.5-2.2) mmol/L Calcium 9.3 (8.6-10.3) mg/dL Total Bilirubin 0.5 (0.3-1.0) mg/dL Direct Bilirubin 0.1 (0.0-0.2) mg/dL Indirect Bilirubin 0.4 (0.0-1.2) mg/dL AST 12 L (13-39) Units/L ALT 10 (7-52) Units/L Alkaline Phosphatase 90 (34-104) Units/L Troponin I < 0.03 (< 0.04) ng/mL Serum Total Protein 6.6 (6.4-8.9) g/dL Albumin 4.4 (3.5-5.7) g/dL Globulin 2.2 L (2.4-3.5) g/dL Albumin/Globulin Ratio 2.0 (1.1-2.2) Lipase 15 (11-82) Units/L Beta-Hydroxybutyric Acd (0.02-0.27) mmol/L Urine Color (Yellow) Urine Clarity (Clear) Urine pH (5.0-8.0) pH Units Ur Specific Parlier (1.010-1.025) Urine Protein (Neg-Trace) mg/dL Urine Glucose (UA) (Normal) mg/dL Urine Ketones (Negative) mg/dL Urine Blood (Negative) Urine Nitrite (Negative) Urine Bilirubin (Negative) Urine Urobilinogen (Normal) mg/dL Ur Leukocyte Esterase (Negative) Urine Microscopic RBC (0-3) per hpf Urine Microscopic WBC (0-3) per hpf Ur Squamous Epith Cells (None-Few) per lpf Urine Bacteria (None-Few) per hpf Hyaline Casts (None-Few) per lpf Ur Culture Indicated? (NO) 07/07/17 07/07/17 07/07/17 Range/Units 21:26 21:29 22:05 WBC (4.3-11.1) K/mcL RBC (3.82-4.97) M/mcL Hgb (11.5-15.4) g/dL Hct (35.3-44.9) % MCV (83.0-100.0) fL MCH (28.0-33.3) pg MCHC (31.6-35.5) g/dL RDW (11.5-14.5) % Plt Count (140-400) K/mcL MPV (9.4-12.4) fL Seg Neutrophils % % Lymphocytes % % Monocytes % % Neutrophils # (1.6-8.9) K/mcL Lymphocytes # (0.6-4.6) K/mcL Monocytes # (0.0-1.3) K/mcL Nucleated RBCs/100 WBC (0) /100 WBC Reactive Lymphocytes (Not Present) Smudge Cells (Not Present) Platelet Estimate (Normal) VBG pH 7.45 H (7.32-7.42) pH Units VBG pCO2 35 L (41-51) mmHg VBG pO2 126 H (25-50) mmHg VBG HCO3 24 (21-27) mEq/L Sodium (136-145) mEq/L Potassium (3.5-5.1) mEq/L Chloride (98-107) mEq/L Carbon Dioxide (23-29) mEq/L BUN (8-23) mg/dL Creatinine (0.60-1.20) mg/dL Est GFR ( Amer) (> 60) Est GFR (Non-Af Amer) (> 60) BUN/Creatinine Ratio (6-26) Glucose (70-105) mg/dL Calculated Osmolality (280-300) Lactic Acid 1.1 (0.5-2.2) mmol/L Calcium (8.6-10.3) mg/dL Total Bilirubin (0.3-1.0) mg/dL Direct Bilirubin (0.0-0.2) mg/dL Indirect Bilirubin (0.0-1.2) mg/dL AST (13-39) Units/L ALT (7-52) Units/L Alkaline Phosphatase (34-104) Units/L Troponin I (< 0.04) ng/mL Serum Total Protein (6.4-8.9) g/dL Albumin (3.5-5.7) g/dL Globulin (2.4-3.5) g/dL Albumin/Globulin Ratio (1.1-2.2) Lipase (11-82) Units/L Beta-Hydroxybutyric Acd 1.23 H (0.02-0.27) mmol/L Urine Color (Yellow) Urine Clarity (Clear) Urine pH (5.0-8.0) pH Units Ur Specific [place] (1.010-1.025) Urine Protein (Neg-Trace) mg/dL Urine Glucose (UA) (Normal) mg/dL Urine Ketones (Negative) mg/dL Urine Blood (Negative) Urine Nitrite (Negative) Urine Bilirubin (Negative) Urine Urobilinogen (Normal) mg/dL Ur Leukocyte Esterase (Negative) Urine Microscopic RBC (0-3) per hpf Urine Microscopic WBC (0-3) per hpf Ur Squamous Epith Cells (None-Few) per lpf Urine Bacteria (None-Few) per hpf Hyaline Casts (None-Few) per lpf Ur Culture Indicated? (NO) 07/07/17 Range/Units 22:51 WBC (4.3-11.1) K/mcL RBC (3.82-4.97) M/mcL Hgb (11.5-15.4) g/dL Hct (35.3-44.9) % MCV (83.0-100.0) fL MCH (28.0-33.3) pg MCHC (31.6-35.5) g/dL RDW (11.5-14.5) % Plt Count (140-400) K/mcL MPV (9.4-12.4) fL Seg Neutrophils % % Lymphocytes % % Monocytes % % Neutrophils # (1.6-8.9) K/mcL Lymphocytes # (0.6-4.6) K/mcL Monocytes # (0.0-1.3) K/mcL Nucleated RBCs/100 WBC (0) /100 WBC Reactive Lymphocytes (Not Present) Smudge Cells (Not Present) Platelet Estimate (Normal) VBG pH (7.32-7.42) pH Units VBG pCO2 (41-51) mmHg VBG pO2 (25-50) mmHg VBG HCO3 (21-27) mEq/L Sodium (136-145) mEq/L Potassium (3.5-5.1) mEq/L Chloride (98-107) mEq/L Carbon Dioxide (23-29) mEq/L BUN (8-23) mg/dL Creatinine (0.60-1.20) mg/dL Est GFR ( Amer) (> 60) Est GFR (Non-Af Amer) (> 60) BUN/Creatinine Ratio (6-26) Glucose (70-105) mg/dL Calculated Osmolality (280-300) Lactic Acid (0.5-2.2) mmol/L Calcium (8.6-10.3) mg/dL Total Bilirubin (0.3-1.0) mg/dL Direct Bilirubin (0.0-0.2) mg/dL Indirect Bilirubin (0.0-1.2) mg/dL AST (13-39) Units/L ALT (7-52) Units/L Alkaline Phosphatase (34-104) Units/L Troponin I (< 0.04) ng/mL Serum Total Protein (6.4-8.9) g/dL Albumin (3.5-5.7) g/dL Globulin (2.4-3.5) g/dL Albumin/Globulin Ratio (1.1-2.2) Lipase (11-82) Units/L Beta-Hydroxybutyric Acd (0.02-0.27) mmol/L Urine Color Yellow (Yellow) Urine Clarity Clear (Clear) Urine pH 6.0 (5.0-8.0) pH Units Ur Specific [place] 1.020 (1.010-1.025) Urine Protein Negative (Neg-Trace) mg/dL Urine Glucose (UA) Normal (Normal) mg/dL Urine Ketones 40 H (Negative) mg/dL Urine Blood Negative (Negative) Urine Nitrite Negative (Negative) Urine Bilirubin Negative (Negative) Urine Urobilinogen Normal (Normal) mg/dL Ur Leukocyte Esterase Moderate H (Negative) Urine Microscopic RBC 3-5 H (0-3) per hpf Urine Microscopic WBC 30-50 H (0-3) per hpf Ur Squamous Epith Cells Many H (None-Few) per lpf Urine Bacteria None Seen (None-Few) per hpf Hyaline Casts None Seen (None-Few) per lpf Ur Culture Indicated? NO. (NO) - Radiology Data Radiology results reviewed: Yes I reviewed the patient's radiology results. Abdomen/Pelvis CT 07/07/17 22:00 IMPRESSION: 1. No acute findings identified in the abdomen and pelvis. 2. Enlarged lymph nodes in the abdomen and pelvis appear stable. D/ / 07/07/2017 23:00:00 Andrea Laura MD / [facility] Interpreting Provider: Andrea Laura MD - EKG Data EKG attestation: Yes I reviewed and interpreted this EKG. Attestation Statement - Attestation Attestation: I examined this patient and my medical decision-making was reviewed with the Resident Physician, Dr. Doan. I agree with the documented findings, disposition and treatment plan as described except to the extent set forth below. Patient is a 66-year-old white female who presents to the emergency department by EMS evening for intractable nausea and vomiting. Patient was just seen and evaluated 24 hours ago in the emergency department and diagnosed with pneumonia , started on Levaquin and discharged home. Patient also had an abdominal CT scan due to complaints of abdominal pain which was unremarkable although she did have a urinary tract infection by urinalysis. Patient comes to the ER actively vomiting on arrival moaning and complaining of terrible left-sided abdominal pain. Patient's vital signs are stable on arrival. I agree with patient's physical exam findings as documented. Patient was administered pain and nausea medications on arrival with IV fluids initiated. Laboratory evaluation and repeat imaging of the abdomen and pelvis was performed due to the complaint of pain. Patient with a leukocytosis with left shift, no acute abdomen on the scene on CT abdomen and pelvis. Patient's urinalysis appears improved from 24 hours ago. Due to patient's inability to tolerate by mouth IV antibiotics were initiated to cover for both pneumonia as well as urinary tract infection. Patient's lactate is within normal limits and blood pressure has remained stable. Patient will be admitted for ongoing antibiotics and medical therapy.
[2017-07-07] MEDS ORDERED: *HR* HYDROmorphone (PF) 1 MG/ML SYRINGE IVP ONE (21:29)
[2017-07-07 21:32] LABS: Lymphocytes # 13.6 K/mcL (0.6-4.6); Neutrophils # 9.4 K/mcL (1.6-8.9); Platelet Estimate Normal (Normal); Reactive Lymphocytes Present (Not Present); Smudge Cells Present (Not Present)
[2017-07-07 21:34] LABS: Albumin 4.4 g/dL (3.5-5.7); Bilirubin,Direct 0.1 mg/dL (0.0-0.2); Bilirubin,Indirect 0.4 mg/dL (0.0-1.2); Bilirubin,Total 0.5 mg/dL (0.3-1.0); Calcium 9.3 mg/dL (8.6-10.3); Globulin 2.2 g/dL (2.4-3.5); Potassium 4.7 mEq/L (3.5-5.1); Total Protein 6.6 g/dL (6.4-8.9)
[2017-07-07] MEDS ORDERED: Ondansetron 4 MG/2 ML VIAL IVP ONE (21:45)
[2017-07-07 22:10] LABS: VBG HCO3 24 mEq/L (21-27); VBG PCO2 35 mmHg (41-51); VBG PH 7.45 pH Units (7.32-7.42); VBG PO2 126 mmHg (25-50)
[2017-07-07] MEDS ORDERED: Vancomycin 1,750 MG in D5% in Water 500 ML IVPB ONE (22:47)
[2017-07-07] MEDS ORDERED: Piperacillin/Tazobactam 3.375 GM in Water for inj. (sterile) 20 ML IVP ONE (22:48)
[2017-07-07 23:01] LABS: Bilirubin,Urine Negative (Negative); Blood,Urine Negative (Negative); Clarity,Urine Clear (Clear); Color,Urine Yellow (Yellow); Glucose,Urine (UA) Normal (Normal); Ketones,Urine 40 mg/dL (Negative); Leukocyte Esterase,Urine Moderate (Negative); Nitrite,Urine Negative (Negative); Protein,Urine Negative (Neg-Trace); Urobilinogen,Urine Normal (Normal)
[2017-07-07 23:03] LABS: Bacteria,Urine None Seen per hpf (None-Few); Hyaline Casts,Urine None Seen per lpf (None-Few); Squamous Epithelial Cell,Urine Many per lpf (None-Few); WBC,Urine 30-50 per hpf (0-3)
[2017-07-08] MEDS ORDERED: Acetaminophen 325 MG TABLET PO PRN (02:04)
[2017-07-08] MEDS ORDERED: Furosemide 20 MG TABLET PO PRN (02:07)
[2017-07-08] MEDS ORDERED: *HR* Morphine 2 MG/ML SYRINGE IVP PRN (02:11)
[2017-07-08] MEDS ORDERED: *HR* Dextrose 50 % in Water (Syg) 50 ML SYRINGE IVP PRN (02:13)
[2017-07-08] MEDS ORDERED: D5% in Water 1,000 ML IVC PRN (02:13)
[2017-07-08] MEDS ORDERED: Dextrose Gel 15 GM/37.5 ML TUBE PO PRN ×2 (02:13)
[2017-07-08] MEDS ORDERED: 0.9 % Sodium Chloride 1,000 ML IVC SCH (02:15)
[2017-07-08] MEDS ORDERED: Ondansetron 4 MG/2 ML VIAL IVP PRN (02:24)
--- NOTE | 2017-07-08 02:35 | Internal Med History&Physical ---
Date of Encounter: 07/08/17 Time of Encounter: 02:33 Assessment and Plan (1) Abdominal pain Current visit: Yes Status: Acute Epigastric and left upper quadrant abdominal pain. Likely related to diabetic gastroparesis/gastritis. We will treat symptomatically. Pain control with intravenous narcotic medications. IV hydration and keep nothing by mouth. High risk for complications due to intravenous narcotic medication use Qualifiers: Abdominal location: epigastric Qualified Code(s): R10.13 - Epigastric pain (2) Nausea & vomiting Current visit: Yes Status: Acute Intractable nausea and vomiting. Most likely related to diabetic gastroparesis. Will treat with intravenous Reglan for symptomatic control. Qualifiers: Vomiting type: cyclical vomiting Vomiting Intractability: intractable Qualified Code(s): G43.A1 - Cyclical vomiting, intractable (3) Pneumonia Current visit: Yes Status: Suspected Lingular infiltrate per CT scan. Will repeat chest x-ray in morning. Continue levofloxacin intravenously. Qualifiers: Pneumonia type: due to Pneumococcus Laterality: left Lung location: lower lobe of lung Qualified Code(s): J13 - Pneumonia due to Streptococcus pneumoniae (4) Type 2 diabetes mellitus Current visit: Yes Status: Chronic Monitor blood sugars. Sliding scale insulin and long-acting insulin coverage. 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 Continue home medications. Qualifiers: Coronary Disease-Associated Artery/Lesion type: [place] artery [place] vs. transplanted heart: sycuan heart Associated angina: without angina Qualified Code(s): I25.10 - Atherosclerotic heart disease of syc[place] coronary artery without angina pectoris (6) Gastroparesis Current visit: Yes Status: Acute With acute exacerbation. Will treat with intravenous Reglan. Internal Medicine - H&P: HPI Chief complaint: Nausea or vomiting and abdominal pain Admitted From: Emergency Dept Plans for Post Hospital Care: Home History of present illness: Ms. Vargas is a 66 year old female patient with a history of diabetes mellitus type 2 with diabetic gastroparesis who presented to the ER with complaints of nausea and vomiting along with intractable abdominal pain. Pain is 10 out of 10 in severity at its worst and radiates across the abdomen and is maintained in the epigastric region. She has not noticed any hematemesis or melena. No hematochezia. No diarrhea. No fever or chills. No cough. No shortness of breath. No chest pain. Past Med Surg Social Fam HX - Past Medical History Attestation: Yes The following information was validated with the patient. Source: patient Medical history: cancer, coronary artery disease, diabetes, hypertension, renal disease, other Psychiatric history: no psych history - Past Surgical History Surgical History: cholecystectomy, THERESE/BSO, other - Social History Smoking Status: Former smoker Smokeless Tobacco Status: No Alcohol use: none Drug use: none - Family History Mother Name: Lama Vargas Age: 52 Family Member Ethnicity: Non- Living Status: Age at : 52 Hx Family Cardiac Disorders: No Hx Family Respiratory Disorders: No Hx Family Cancer: No Hx Family GI Disorders: No Hx Family Genitourinary Disorders: No Hx Family Endocrine Disorder: Yes (DM) Hx Family Musculoskeletal Disorders: No Hx Family Neuromuscular Disorders: No Hx Family Neurologic Disorders: No Hx Family HEENT Disorders: No Hx Family Autoimmune Disorders: No Hx Family Reproductive Disorders: No Hx Family Psychosocial Disorders: No Hx Family Medical Disorders: No Father Adopted: [place]: Winston Vargas Age: 73 Family Member Ethnicity: Non- Living Status: Age at : 73 Cause of : [place] Hx Family Cardiac Disorders: Yes ([place]) Hx Family Respiratory Disorders: No Hx Family Cancer: No Hx Family GI Disorders: No Hx Family Genitourinary Disorders: No Hx Family Endocrine Disorder: No Hx Family Musculoskeletal Disorders: No Hx Family Neuromuscular Disorders: No Hx Family Neurologic Disorders: No Hx Family HEENT Disorders: No Hx Family Autoimmune Disorders: No Hx Family Reproductive Disorders: No Hx Family Psychosocial Disorders: No Hx Family Medical Disorders: No Internal Medicine - H&P: Meds Aspirin 81 mg PO DAILY 04/05/15 [History] Atorvastatin [Lipitor] 40 mg PO DAILY 04/05/15 [History] Enalapril Maleate [Vasotec] 5 mg PO DAILY 04/05/15 [History] Insulin LISPRO [HumaLOG] 0 units SQ TIDAC 04/05/15 [History] Topiramate [Topamax] 25 mg PO BID 03/10/16 [History] Folic Acid 1 mg PO DAILY #30 tablet 09/18/15 [Rx] Ergocalciferol (VITAMIN D2) [Vitamin D2 (50,000 UNIT)] 50,000 unit PO WE [History] Loperamide HCl [Imodium A-D] 2 mg PO QID PRN 02/28/16 [History] Primidone [Mysoline] 50 mg PO HS 02/28/16 [History] Ascorbic Acid [Vitamin C] 500 mg PO DAILY 03/06/16 [History] Ferrous Sulfate [Iron] 325 mg PO DAILY 03/06/16 [History] Fluticasone Propionate Nasal [Flonase] 2 spray NS DAILY 11/26/16 [History] Insulin Glargine/Lixisenatide [Soliqua 100 Unit-33 Mcg/ml Pen] 60 unit SQ HS [History] Tramadol HCl [Ultram] 50 mg PO TID 11/26/16 [History] Omeprazole [PriLOSEC] 40 mg PO DAILY #30 cap 03/15/17 [Rx] Cyanocobalamin (Vitamin B-12) [Vitamin B-12] 500 mcg PO DAILY 05/06/17 [History] Furosemide [Lasix] 20 mg PO DAILY PRN 05/06/17 [History] Linagliptin [Tradjenta] 5 mg PO DAILY 05/06/17 [History] Loratadine [Claritin] 10 mg PO DAILY 05/06/17 [History] Metoclopramide [Reglan] 10 mg PO Q6HR 05/06/17 [History] Metoprolol XL (24 HR) Succ [Toprol Xl] 25 mg PO DAILY 05/06/17 [History] Pioglitazone [Actos] 15 mg PO 0800 05/06/17 [History] Pregabalin [Lyrica] 75 mg PO TID 05/06/17 [History] Sucralfate [Carafate] 1 gm PO QID 05/06/17 [History] Ondansetron ODT [Zofran ODT] 4 mg SL Q6HR PRN #14 tab.rapdis 07/06/17 [Rx] levoFLOXacin [Levaquin] 750 mg PO DAILY #5 tablet 07/06/17 [Rx] Magnesium Oxide [Magnesium] 400 mg PO DAILY 07/07/17 [History] 3 Allergy/AdvReac Type Severity Reaction Status Date / Time metformin Allergy Nausea Verified 07/06/17 04:30 Sulfa (Sulfonamide Allergy Nausea Verified 07/06/17 04:30 Antibiotics) sulfamethoxazole Allergy Nausea Verified 07/06/17 04:30 [From Bactrim] trimethoprim [From Bactrim] Allergy Nausea Verified 07/06/17 04:30 All Systems PM: A 10-system review of systems was performed and is negative for pertinent findings except as documented above in the HPI. - Constitutional Constitutional: malaise, no chills, no fever(s), no night sweats - EENT Eyes: no change in vision, no discharge, no pain, no photophobia Ears: no ear discharge, no ear pain, no tinnitus Nose, mouth and throat: no dysphagia, no nasal discharge, no neck pain, no sore throat - Cardiovascular Cardiovascular ROS IM: no chest pain, no diaphoresis, no dyspnea, no lightheadedness, no palpitations, no syncope - Respiratory Respiratory: no cough, no dyspnea, no wheezing, no excessive phlegm production - Gastrointestinal Gastrointestinal: abdominal pain, nausea, vomiting, no diarrhea, no hematemesis , no hematochezia, no melena - Genitourinary Genitourinary: no change in urinary stream, no dysuria, no flank pain, no hematuria - Musculoskeletal Musculoskeletal ROS IM: no numbness, no tingling - Integumentary Integumentary IM: no rash, no unusual bruising - Neurological Neurological ROS: no confusion, no convulsions, no focal weakness, no numbness, no tingling, no tremor(s) - Hematologic/Lymphatic Hematologic/Lymphatic: no easy bruising - Constitutional Vitals: Temp Pulse Resp BP Pulse Ox 97.6 F 75 14 150/91 99 07/08/17 01:50 07/08/17 01:50 07/08/17 01:50 07/08/17 01:50 07/08/17 01:50 General appearance: Present: cooperative, mild distress, A&O X 3, answers questions appropriately - Neck Neck exam general surgery: Present: supple, trachea midline. Absent: lymphadenopathy - Respiratory Respiratory exam: Present: CTAB. Absent: accessory muscle use, rales, rhonchi, wheezes - Cardiovascular Cardiovascular exam: Present: RRR, +S1, +S2. Absent: diastolic murmur, gallop, rubs, systolic murmur - GI/Abdominal GI/Abdominal exam: Present: normal bowel sounds, soft, tenderness (Epigastric), no peritoneal signs. Absent: distended - Extremities Exam Extremities exam: Present: warm, radial pulses palpable and symmetrical. Absent : calf tenderness, cyanotic, pedal edema - Neurological Exam Neurological exam: Present: CN II-XII intact, oriented X3, no focal deficits. Absent: facial droop, speech deficit - Skin Skin exam: Present: dry, intact Internal Med - H&P Results - Labs CBC & Chem 7: 07/07/17 21:00 07/07/17 21:00 - Impressions Impressions Abdomen/Pelvis CT 07/07/17 22:00 IMPRESSION: 1. No acute findings identified in the abdomen and pelvis. 2. Enlarged lymph nodes in the abdomen and pelvis appear stable. D/ / 07/07/2017 23:00:00 Andrea Laura MD / earnold Interpreting Provider: Andrea Laura MD
[2017-07-08] MEDS: Metoclopramide 10 MG/2 ML VIAL IVP SCH ×4 (05:20→23:52)
[2017-07-08] MEDS ORDERED: Ondansetron 4 MG/2 ML VIAL IVP SCH (06:00)
[2017-07-08] MEDS ORDERED: *HR* HYDROmorphone (PF) 1 MG/ML SYRINGE IVP PRN (06:02)
[2017-07-08 07:11] LABS: Basophils % 0.2 %; Eosinophils # 0.1 K/mcL (0.0-0.6); Eosinophils % 0.5 %; Hematocrit 37.1 % (35.3-44.9); Immature Granulocytes % 0.6 % (0-4); Lymphocytes # 12.4 K/mcL (0.6-4.6); Lymphocytes % 63.5 %; Mean Corpuscular HGB Conc 32.3 g/dL (31.6-35.5); Mean Corpuscular Hemoglobin 28.9 pg (28.0-33.3); Mean Corpuscular Volume 89.4 fL (83.0-100.0); Mean Platelet Volume 11.2 fL (9.4-12.4); Monocytes # 0.6 K/mcL (0.0-1.3); Monocytes % 3.3 %; Neutrophils # 6.2 K/mcL (1.6-8.9); Nucleated Red Blood Cells 0.2 /100 WBC (0); Platelet Count 152 K/mcL (140-400); Red Blood Count 4.15 M/mcL (3.82-4.97); Red Cell Distribution Width 14.2 % (11.5-14.5); Segmented Neutrophils % 31.9 %
[2017-07-08 07:22] LABS: Calcium 8.6 mg/dL (8.6-10.3); Potassium 4.2 mEq/L (3.5-5.1)
[2017-07-08] MEDS ORDERED: Levofloxacin 750 MG/150 ML 750 MG/150 ML BAG IVPB SCH (09:00)
[2017-07-08] MEDS: 0.9 % Sodium Chloride 1,000 ML IVC SCH ×2 (09:40→22:38)
[2017-07-08] MEDS: Loratadine 10 MG TABLET PO SCH (09:41)
[2017-07-08] MEDS: Magnesium Oxide 400 MG TABLET PO SCH (09:41)
[2017-07-08] MEDS: Metoprolol XL (24 HR) Succ 25 MG TAB.ER.24H PO SCH (09:41)
[2017-07-08] MEDS: Aspirin 81 MG TAB.CHEW PO SCH (09:41)
[2017-07-08] MEDS: Cyanocobalamin (B-12) 1,000 MCG TABLET PO SCH (09:41)
[2017-07-08] MEDS: Pregabalin 75 MG CAPSULE PO SCH ×3 (09:41→20:52)
[2017-07-08] MEDS: Insulin LISPRO 300 UNITS/3 ML VIAL SQ SCH ×4 (09:47→20:50)
[2017-07-08] MEDS: Topiramate 25 MG TABLET PO SCH ×2 (10:38→20:52)
[2017-07-08] MEDS: Ascorbic Acid 500 MG TABLET PO SCH (10:38)
[2017-07-08] MEDS: Fluticasone Propionate Nasal 50 MCG/SPRAY BOTTLE NS SCH (10:38)
[2017-07-08] MEDS: Folic Acid 1 MG TABLET PO SCH (10:38)
[2017-07-08] MEDS: traMADol 50 MG TABLET PO SCH ×3 (10:38→20:52)
[2017-07-08] MEDS: *HR* HYDROmorphone (PF) 1 MG/ML SYRINGE IVP PRN (10:54)
[2017-07-08] MEDS: Insulin DETEMIR 100 UNIT/ML X5UNITS SQ SCH ×2 (11:02→20:51)
--- NOTE | 2017-07-08 11:44 | Event Note ---
Date of Encounter: 07/08/17 Time of Encounter: 09:30 Patient seen and examined at bedside. I reviewed the documentation from area mechanic and agree with the assessment and plan. the documentation below confirms or adds to their assessment and plan. 66 yo F w long standing Diabetes and CLL history presents with abdominal pain , nausea and vomiting and dehydration of unclear etiology Most likely due to gastroenteriris vs gastritis vs gastroparesis. Pancreatitis is low on differential due to Normal lipase and CT negative for findings continue IV hydration w NS and antiemetics till she can start PO clear liquids. Also start PPI CXR reviewed - no clear focal consolidation. will wean O2 as tolerated.Stop Abx and observe Leucocytosis- due to long standing CLL. baseline is around 15-17. watch w serial CBC Acute Renal failure- baseline cr is 0.9. mos likely due to dehydration from inability to tolerate PO continue SSI for Dm and good glycemic control.BGs look decent rest as in H&P
[2017-07-08] MEDS: Primidone 50 MG TABLET PO SCH (20:52)
[2017-07-09] MEDS: *HR* HYDROmorphone (PF) 1 MG/ML SYRINGE IVP PRN (00:05)
[2017-07-09] MEDS: Metoclopramide 10 MG/2 ML VIAL IVP SCH ×4 (06:29→23:37)
[2017-07-09] MEDS: Insulin LISPRO 300 UNITS/3 ML VIAL SQ SCH ×4 (07:44→19:51)
[2017-07-09] MEDS: Magnesium Oxide 400 MG TABLET PO SCH (08:37)
[2017-07-09] MEDS: Metoprolol XL (24 HR) Succ 25 MG TAB.ER.24H PO SCH (08:38)
[2017-07-09] MEDS: traMADol 50 MG TABLET PO SCH ×3 (08:38→19:38)
[2017-07-09] MEDS: Cyanocobalamin (B-12) 1,000 MCG TABLET PO SCH (08:38)
[2017-07-09] MEDS: Topiramate 25 MG TABLET PO SCH ×2 (08:38→19:38)
[2017-07-09] MEDS: Folic Acid 1 MG TABLET PO SCH (08:38)
[2017-07-09] MEDS: Pregabalin 75 MG CAPSULE PO SCH ×3 (08:38→19:38)
[2017-07-09] MEDS: Loratadine 10 MG TABLET PO SCH (08:38)
[2017-07-09] MEDS: Aspirin 81 MG TAB.CHEW PO SCH (08:38)
[2017-07-09] MEDS: Insulin DETEMIR 100 UNIT/ML X5UNITS SQ SCH ×2 (08:39→19:51)
[2017-07-09] MEDS: 0.9 % Sodium Chloride 1,000 ML IVC SCH ×2 (08:44→19:37)
[2017-07-09 09:01] LABS: Hematocrit 36.2 % (35.3-44.9); Hemoglobin 11.4 g/dL (11.5-15.4); Mean Corpuscular HGB Conc 31.5 g/dL (31.6-35.5); Mean Corpuscular Volume 92.1 fL (83.0-100.0); Mean Platelet Volume 10.8 fL (9.4-12.4); Nucleated Red Blood Cells 0.1 /100 WBC (0); Platelet Count 119 K/mcL (140-400); Red Blood Count 3.93 M/mcL (3.82-4.97); Red Cell Distribution Width 14.4 % (11.5-14.5)
[2017-07-09] MEDS: Ascorbic Acid 500 MG TABLET PO SCH (09:10)
[2017-07-09 09:16] LABS: Albumin 3.5 g/dL (3.5-5.7); Albumin/Globulin Ratio 1.9 (1.1-2.2); Bilirubin,Total 0.4 mg/dL (0.3-1.0); Calcium 8.5 mg/dL (8.6-10.3); Globulin 1.8 g/dL (2.4-3.5); Potassium 4.4 mEq/L (3.5-5.1); Total Protein 5.3 g/dL (6.4-8.9)
[2017-07-09 09:44] LABS: Eosinophils # 0.3 K/mcL (0.0-0.6); Lymphocytes # 9.5 K/mcL (0.6-4.6); Monocytes # 0.3 K/mcL (0.0-1.3); Neutrophils # 6.8 K/mcL (1.6-8.9); Reactive Lymphocytes Present (Not Present)
[2017-07-09 09:45] LABS: Platelet Estimate Slight Decrease (Normal)
--- NOTE | 2017-07-09 11:19 | Internal Med Progress Note ---
Date of Encounter: 07/09/17 Time of Encounter: 09:45 - Assessment and plan (1) Acute renal failure Current Visit: Yes Status: Acute Assessment and plan: Acute renal failure superimposed on CKD Stg III. was likely etiology is the preceding dehydration. From a vital standpoint she is doing much better. but Her creatinine continues to worsen despite fluid resuscitation. I have already held her dennis inhibitors I will consult nephrology and obtain a renal ultrasound continue IV fluids for now-since the patient has just been started on clear liquid diet. Will closely trend BMP patient does have chronic kidney disease at baseline Qualifiers: Acute renal failure type: unspecified Qualified Code(s): N17.9 - Acute kidney failure, unspecified (2) HTN (hypertension) Current Visit: Yes Status: Chronic Assessment and plan: Blood pressure is stable. Continue medications and monitor closely. Dennis inhibitor on hold due to acute renal failure Qualifiers: Hypertension type: essential hypertension Qualified Code(s): I10 - Essential (primary) hypertension (3) CLL (chronic lymphocytic leukemia) Current Visit: No Status: Chronic Assessment and plan: Leukocytosis seems to be improving she appears to be at baseline- which is always high due to CLL. I will hold off on any further antibiotics (4) Abdominal pain Current Visit: Yes Status: Acute Assessment and plan: Improving but still present unclear etiology. Started on a clear liquid diet today and will address as tolerated Qualifiers: Abdominal location: left upper quadrant Qualified Code(s): R10.12 - Left upper quadrant pain (5) Type 2 diabetes mellitus Current Visit: Yes Status: Chronic Assessment and plan: Continue sliding scale insulin and serial Accu checks Qualifiers: Diabetes mellitus complication status: with kidney complications Diabetes mellitus complication detail: with chronic kidney disease Diabetes mellitus intermediate manager insulin use: with senior living use Chronic kidney disease stage: stage 3 (moderate) Qualified Code(s): E11.22 - Type 2 diabetes mellitus with diabetic chronic kidney disease; N18.3 - Chronic kidney disease, stage 3 ( moderate); N18.3 - Chronic kidney disease, stage 3 (moderate); 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 She states it is about 6/10 and severity centered around the left upper quadrant and does not radiate in any direction. It is improved with oral pain medications and she is having bowel movements which are soft and not diarrhea. She denies any blood from her stools. She also denies any dysuria at this point. She denies decrease in urination - Constitutional Vitals: Temp Pulse Resp BP Pulse Ox 98.4 F 77 16 115/69 94 07/09/17 07:35 07/09/17 07:35 07/09/17 07:35 07/09/17 07:35 07/09/17 07:35 General appearance: Present: cooperative, mild distress, A&O X 3, answers questions appropriately Exam: General , Alert , oriented, moderate discomfort HEENT- PERRLA. EOMI CVS- S1S2 N, No Murmurs, Rubs, gallops, No JVD RS- CTA Bilaterally. No rales no Rhonchi heard Abdomen- Soft tender to palpation along the left upper quadrant. No guarding or rigidity, bowel sounds heard across all 4 quadrants Neuro- No Focal deficits appreciated, CN 2-12 intact, Motors- power 5/5 UE, 5/5 LE Bilaterally, Sensations intact Extremeties- no Clubbing/ edema/ wounds seen Internal Medicine: Result - Labs CBC & Chem 7: 07/09/17 08:37 07/09/17 08:37 Labs: Short CBC 07/09/17 Range/Units 08:37 WBC 16.9 H (4.3-11.1) K/mcL Hgb 11.4 L (11.5-15.4) g/dL Hct 36.2 (35.3-44.9) % Plt Count 119 L (140-400) K/mcL Neutrophils # 6.8 (1.6-8.9) K/mcL BMP 07/09/17 08:37 Sodium 140 Potassium 4.4 Chloride 110 H Carbon Dioxide 22 L BUN 24 H Creatinine 1.60 H Glucose 140 H Calcium 8.5 L Liver Function 07/09/17 Range/Units 08:37 Total Bilirubin 0.4 (0.3-1.0) mg/dL AST 9 L (13-39) Units/L ALT 7 (7-52) Units/L Alkaline Phosphatase 73 (34-104) Units/L Albumin 3.5 (3.5-5.7) g/dL Consult Discharge Plan - Plan Referrals: Mariaelena Vasquez, REFERRAL MANAGEMENT LIAISON [Primary Care Provider] -
[2017-07-09] MEDS: Fluticasone Propionate Nasal 50 MCG/SPRAY BOTTLE NS SCH (11:23)
--- NOTE | 2017-07-09 11:42 | Nephrology Consult Note ---
Date of Encounter: 07/09/17 Time of Encounter: 11:40 Assessment and Plan (1) Acute kidney injury superimposed on chronic kidney disease Current Visit: Yes Status: Acute LENORE on CKD stage III Nephrology was consulted 07/09/17 due to worsening LENORE despite IV hydration. Patient reports taking Lasix at home on a PRN basis. Work up thus far revealed up-trending serum creatinine levels from 1.26 to 1.60 Patient had 150cc UOP in the past 24 hours and denies NSAID use other than Aspirin. CT abd/plv revealed no acute findings identified and renal U/S is pending. Urine sodium and urine creatinine levels pending Hold Lisinopril and Omeprazole Avoid nephrotoxins Measure I&Os Continue to monitor (2) CKD (chronic kidney disease), stage III Current Visit: Yes Status: Acute Avoid nephrotoxins Continue to monitor (3) Microscopic hematuria Current Visit: Yes Status: Acute Repeat UA and urine eosinophils pending to r/o ATN casts Immunoelectrophoresis, Immunofixation pending (4) HTN (hypertension) Current Visit: Yes Status: Chronic Continue Metoprolol Avoid nephrotoxins Qualifiers: Hypertension type: essential hypertension Qualified Code(s): I10 - Essential (primary) hypertension (5) CLL (chronic lymphocytic leukemia) Current Visit: No Status: Chronic Management per primary team (6) DM2 (diabetes mellitus, type 2) Current Visit: No Status: Chronic Management per primary team Qualifiers: Diabetes mellitus complication status: with kidney complications Diabetes mellitus complication detail: with chronic kidney disease Diabetes mellitus exterminator termite insulin use: with exterminator termite use Chronic kidney disease stage: stage 3 (moderate) Qualified Code(s): E11.22 - Type 2 diabetes mellitus with diabetic chronic kidney disease; N18.3 - Chronic kidney disease, stage 3 ( moderate); N18.3 - Chronic kidney disease, stage 3 (moderate); Z79.4 - [facility] (current) use of insulin; Z79.4 - intermediate card tender (current) use of insulin; Z79.4 - [facility] (current) use of insulin; Z79.4 - intermediate card tender (current) use of insulin History of Present Illness - Reason for Consult Consult date: 07/09/17 Acute Kidney Injury, Chronic Kidney Disease Requesting physician: Srinivasan Rondon - Chief Complaint N/V - History of Present Illness Ms. Vargas is a 66yo female with a PMH of CLL, HTN, DM, and CKD stage III who presented to the ED on 07/07/17 c/o N/V and abdominal pain for the past 2 days. Nephrology was consulted 07/09/17 due to worsening LENORE despite IV hydration. Patient reports decreased N/V today and improved abdominal pain. Patient denies associated fever, chills, CP, SOB, diarrhea, dysuria, hematuria, or leg edema. She reports taking Lasix at home on a PRN basis and denies NSAID use other than Aspirin. Work up thus far revealed up-trending serum creatinine levels from 1.26 to 1.60 and 150cc UOP in the past [address] abd/plv revealed no acute findings identified and renal U/S is pending. Past Med Surg Social Fam HX - Past Medical History Medical history: cancer, coronary artery disease, diabetes, hypertension, renal disease, other Psychiatric history: no psych history - Past Surgical History Surgical History: cholecystectomy, THERESE/BSO, other - Social History Smoking Status: Former smoker Smokeless Tobacco Status: No Alcohol use: occasionally Drug use: none - Family History Mother Name: Lama Vargas Age: 52 Family Member Ethnicity: Non- Living Status: Age at : 52 Hx Family Cardiac Disorders: No Hx Family Respiratory Disorders: No Hx Family Cancer: No Hx Family GI Disorders: No Hx Family Genitourinary Disorders: No Hx Family Endocrine Disorder: Yes (DM) Hx Family Musculoskeletal Disorders: No Hx Family Neuromuscular Disorders: No Hx Family Neurologic Disorders: No Hx Family HEENT Disorders: No Hx Family Autoimmune Disorders: No Hx Family Reproductive Disorders: No Hx Family Psychosocial Disorders: No Hx Family Medical Disorders: No Father Adopted: [place]: Winston Vargas Age: 73 Family Member Ethnicity: Non- Living Status: Age at : 73 Cause of : [place] Hx Family Cardiac Disorders: Yes ([place]) Hx Family Respiratory Disorders: No Hx Family Cancer: No Hx Family GI Disorders: No Hx Family Genitourinary Disorders: No Hx Family Endocrine Disorder: No Hx Family Musculoskeletal Disorders: No Hx Family Neuromuscular Disorders: No Hx Family Neurologic Disorders: No Hx Family HEENT Disorders: No Hx Family Autoimmune Disorders: No Hx Family Reproductive Disorders: No Hx Family Psychosocial Disorders: No Hx Family Medical Disorders: No Medications and Allergies Aspirin 81 mg PO DAILY 04/05/15 [History] Atorvastatin [Lipitor] 40 mg PO DAILY 04/05/15 [History] Enalapril Maleate [Vasotec] 5 mg PO DAILY 04/05/15 [History] Insulin LISPRO [HumaLOG] 0 units SQ TIDAC 04/05/15 [History] Topiramate [Topamax] 25 mg PO BID 08/23/15 [History] Folic Acid 1 mg PO DAILY #30 tablet 09/18/15 [Rx] Ergocalciferol (VITAMIN D2) [Vitamin D2 (50,000 UNIT)] 50,000 unit PO WE [History] Loperamide HCl [Imodium A-D] 2 mg PO QID PRN 02/28/16 [History] Primidone [Mysoline] 50 mg PO HS 02/28/16 [History] Ascorbic Acid [Vitamin C] 500 mg PO DAILY 03/06/16 [History] Ferrous Sulfate [Iron] 325 mg PO DAILY 03/06/16 [History] Fluticasone Propionate Nasal [Flonase] 2 spray NS DAILY 11/26/16 [History] Insulin Glargine/Lixisenatide [Soliqua 100 Unit-33 Mcg/ml Pen] 60 unit SQ HS [History] Tramadol HCl [Ultram] 50 mg PO TID 11/26/16 [History] Omeprazole [PriLOSEC] 40 mg PO DAILY #30 cap 03/15/17 [Rx] Cyanocobalamin (Vitamin B-12) [Vitamin B-12] 500 mcg PO DAILY 05/06/17 [History] Furosemide [Lasix] 20 mg PO DAILY PRN 05/06/17 [History] Linagliptin [Tradjenta] 5 mg PO DAILY 05/06/17 [History] Loratadine [Claritin] 10 mg PO DAILY 05/06/17 [History] Metoclopramide [Reglan] 10 mg PO Q6HR 05/06/17 [History] Metoprolol XL (24 HR) Succ [Toprol Xl] 25 mg PO DAILY 05/06/17 [History] Pioglitazone [Actos] 15 mg PO 0800 05/06/17 [History] Pregabalin [Lyrica] 75 mg PO TID 05/06/17 [History] Sucralfate [Carafate] 1 gm PO QID 05/06/17 [History] Ondansetron ODT [Zofran ODT] 4 mg SL Q6HR PRN #14 tab.rapdis 07/06/17 [Rx] levoFLOXacin [Levaquin] 750 mg PO DAILY #5 tablet 07/06/17 [Rx] Magnesium Oxide [Magnesium] 400 mg PO DAILY 07/07/17 [History] 3 Allergy/AdvReac Type Severity Reaction Status Date / Time metformin Allergy Nausea Verified 07/06/17 04:30 Sulfa (Sulfonamide Allergy Nausea Verified 07/06/17 04:30 Antibiotics) sulfamethoxazole Allergy Nausea Verified 07/06/17 04:30 [From Bactrim] trimethoprim [From Bactrim] Allergy Nausea Verified 07/06/17 04:30 Review of Systems Constitutional: no chills, no fever(s), no lethargy, no weakness, no weight gain , no weight loss Nose, mouth and throat: no nasal congestion, no sore throat Cardiovascular: no chest pain, no palpitations Respiratory: no cough, no dyspnea, no chest congestion Gastrointestinal: abdominal pain, nausea, vomiting, no diarrhea Genitourinary Female: no dysuria, no hematuria, no urinary frequency, no urinary incontinence, no urinary urgency Musculoskeletal: no back pain, no numbness, no tingling Integumentary: no lesions, no swelling Neurological: no confusion, no syncope, no weakness Psychiatric: no anxiety, no depression Endocrine: no fatigue, no palpitations, no polydipsia, no polyphagia, no polyuria Exam - Vital Signs Vital signs: Initial Vital Signs Temp Pulse Resp BP Pulse Ox 97.5 F L 90 16 124/70 94 07/07/17 20:41 07/07/17 20:41 07/07/17 20:41 07/07/17 20:41 07/07/17 20:41 Vital Signs - Last 8 Hours Temp Pulse Resp BP Pulse Ox 07/09/17 11:19 98.7 F 72 15 126/61 98 07/09/17 07:35 98.4 F 77 16 115/69 94 07/09/17 04:00 97.3 F L 77 17 127/66 98 Intake and Output 07/08/17 07/09/17 07/09/17 23:59 07:59 15:59 Intake Total 1000 / 1000 1000 / 1000 Output Total 150 / 150 Balance 850 / 850 1000 / 1000 Intake: IV Fluids 1000 / 1000 1000 / 1000 0.9 % Sodium Chloride 1,000 ML 1000 / 1000 1000 / 1000 @ 100 mls/hr IVC .Q10H [facility] Rx#: [id number] Output: Urine 150 / 150 Other: Stool Size Moderate Stool Consistency loose # Voids 1 # Bowel Movements 1 Blood Glucose* 107 117 205 - General Appearance General appearance: well-developed, well-nourished, appears started age, obese EENT: ATNC, PERRL, mucous membranes moist Neck: no JVD, supple Respiratory: clear Cardiology: no murmurs, no edema, regular rate, regular rhythm, normal S1, normal S2 Gastrointestinal: normoactive bowel sounds, tenderness (mild LUQ TTP), no guarding Integumentary: no rash, warm and dry Neurologic: no focal deficit, alert and oriented x3 Musculoskeletal: no deformities, no erythema Psychiatric: mood/affect appropriate, cooperative Results - Lab Results 07/09/17 08:37 07/09/17 08:37 Most recent lab results Calcium 8.5 mg/dL (8.6-10.3) L 07/09/17 08:37 - Image Kidney/bladder ultrasound: pending Consult Discharge Plan - Plan Referrals: Mariaelena Vasquez, ADMINISTRATION SPECIALIST [Primary Care Provider] -
[2017-07-09 19:37] LABS: Bilirubin,Urine Negative (Negative); Blood,Urine Negative (Negative); Clarity,Urine Clear (Clear); Color,Urine Yellow (Yellow); Glucose,Urine (UA) Normal (Normal); Ketones,Urine Negative (Negative); Leukocyte Esterase,Urine Negative (Negative); Nitrite,Urine Negative (Negative); Protein,Urine Negative (Neg-Trace); Specific Gravity,Urine 1.009 (1.010-1.025); Urobilinogen,Urine Normal (Normal)
[2017-07-09] MEDS: Primidone 50 MG TABLET PO SCH (19:37)
[2017-07-10 04:43] LABS: Basophils % 0.2 %; Eosinophils # 0.1 K/mcL (0.0-0.6); Eosinophils % 1.1 %; Hematocrit 33.9 % (35.3-44.9); Hemoglobin 10.7 g/dL (11.5-15.4); Immature Granulocytes % 0.5 % (0-4); Lymphocytes # 7.9 K/mcL (0.6-4.6); Lymphocytes % 61.8 %; Mean Corpuscular HGB Conc 31.6 g/dL (31.6-35.5); Mean Corpuscular Volume 91.9 fL (83.0-100.0); Mean Platelet Volume 10.6 fL (9.4-12.4); Monocytes # 0.5 K/mcL (0.0-1.3); Monocytes % 3.7 %; Neutrophils # 4.2 K/mcL (1.6-8.9); Platelet Count 122 K/mcL (140-400); Red Blood Count 3.69 M/mcL (3.82-4.97); Red Cell Distribution Width 14.2 % (11.5-14.5); Segmented Neutrophils % 32.7 %
[2017-07-10 05:02] LABS: Albumin 3.5 g/dL (3.5-5.7); Albumin/Globulin Ratio 2.1 (1.1-2.2); Bilirubin,Total 0.3 mg/dL (0.3-1.0); Calcium 8.4 mg/dL (8.6-10.3); Globulin 1.7 g/dL (2.4-3.5); Magnesium 1.6 mg/dL (1.6-2.6); Phosphorous 2.5 mg/dL (2.7-4.5); Potassium 3.7 mEq/L (3.5-5.1); Total Protein 5.2 g/dL (6.4-8.9)
[2017-07-10 05:12] LABS: Reactive Lymphocytes Present (Not Present); Toxic Granulation Present (Not Present)
[2017-07-10 05:13] LABS: Platelet Estimate Slight Decrease (Normal)
[2017-07-10] MEDS: 0.9 % Sodium Chloride 1,000 ML IVC SCH (06:05)
[2017-07-10] MEDS: Metoclopramide 10 MG/2 ML VIAL IVP SCH ×2 (06:05→12:10)
--- NOTE | 2017-07-10 06:58 | Nephrology Progress Note ---
<Eric Heard - Last Filed: 07/10/17 11:49> Date of Encounter: 07/10/17 Time of Encounter: 06:57 - Assessment and Plan (1) Acute kidney injury superimposed on chronic kidney disease Status: Acute LENORE on CKD stage II-IIIa Serum creatinine levels from 1.26 --> 1.60 --> 1.33 Nephrology was consulted 07/09/17 due to worsening LENORE despite IV hydration. Patient reports taking Lasix at home on a PRN basis. Patient denies NSAID use other than Aspirin. CT abd/plv revealed no acute findings identified Renal ultrasound was unremarkable FeNa indicates pre-renal etiology (likely dehydration from N/V) Will continue IVF for now since she has no peripheral edema. Hold Lisinopril and Omeprazole Avoid nephrotoxins Ok to discharge, Please repeat BMP in 3 weeks and follow up with nephrology in clinic in 4 weeks (2) CKD (chronic kidney disease), stage III Status: Acute Avoid nephrotoxins Continue to monitor (3) Microscopic hematuria Status: Acute Repeat UA shows no casts Urine eosinophils negative Immunoelectrophoresis, Immunofixation pending (4) HTN (hypertension) Status: Chronic Continue Metoprolol Avoid nephrotoxins (5) CLL (chronic lymphocytic leukemia) Status: Chronic Management per primary team (6) DM2 (diabetes mellitus, type 2) Status: Chronic Management per primary team Subjective Principal diagnosis: LENORE on CKD Interval history: Patietn seen and examined eating breakfast in bed. Patient is tolerating PO intake and denies any new c/o this AM. She reports increased urine output today and denies N/V/D. Objective - Vital Signs Vital signs: Vital Signs Temp Pulse Resp BP Pulse Ox 07/10/17 04:19 98.2 F 66 14 116/61 95 07/09/17 19:30 98.3 F 74 14 107/54 94 07/09/17 16:52 98.0 F 72 15 135/65 98 Intake and Output 07/09/17 07/09/17 07/10/17 15:59 23:59 07:59 Intake Total 1240 / 1240 1000 / 1000 Output Total 600 / 600 400 / 400 Balance 640 / 640 600 / 600 Intake: IV Fluids 1000 / 1000 1000 / 1000 0.9 % Sodium Chloride 1,000 ML 1000 / 1000 1000 / 1000 @ 100 mls/hr IVC .Q10H [facility] Rx#: [id number] Oral 240 / 240 Output: Urine 600 / 600 400 / 400 Other: Meal Dinner Percent of Meal Consumed 100% Stool Size Small Stool Consistency loose Stool Color Green # Bowel Movements 1 Blood Glucose* 194 - General Appearance General appearance: Present: well-developed, well-nourished, obese EENT: Present: ATNC, PERRL, mucous membranes moist Neck: Present: no JVD, supple Respiratory: Present: clear Cardiology: Present: no murmurs, regular rate, regular rhythm, split S1, fixed split S2 Gastrointestinal: Present: normoactive bowel sounds, no tenderness, no guarding , no organomegaly Integumentary: Present: no rash, warm and dry Neurologic: Present: no focal deficit, alert and oriented x3 Musculoskeletal: Present: no deformities, no erythema, no cyanosis Psychiatric: Present: mood/affect appropriate, cooperative - Lab 07/10/17 04:15 07/10/17 04:15 Most recent lab results Calcium 8.4 mg/dL (8.6-10.3) L 07/10/17 04:15 Phosphorus 2.5 mg/dL (2.7-4.5) L 07/10/17 04:15 Magnesium 1.6 mg/dL (1.6-2.6) 07/10/17 04:15 Urine Creatinine 52 mg/dL 07/09/17 19:25 Urine Sodium 29.0 mEq/L 07/09/17 19:25 - Imaging Kidney/bladder ultrasound: report reviewed Consult Discharge Plan - Plan Additional Instructions: Have a repeat renal function test- this is a blood test to be repeated prior to your appointment with your primary care physician or credit union field examiner please do so within a week Referrals: Tung Larry DO [Partnered Physician] - (Appointment requested, they will call you with appointment, if you do not hear from them by 07/15/17, call number provided) Mariaelena Vasquez, [employer] DIRECTOR [Primary Care Provider] - (Appointment requested, office will call you with appointment date and time. Call office by 07/15/17 if you do not here from them.) Prescriptions: Ranitidine HCl [Zantac] 150 mg PO DAILY #30 tablet <Sinan Kiser - Last Filed: 02/23/18 09:18> Date of Encounter: 07/10/17 Objective - Lab 07/10/17 04:15 07/10/17 04:15 Most recent lab results Calcium 8.4 mg/dL (8.6-10.3) L 07/10/17 04:15 Phosphorus 2.5 mg/dL (2.7-4.5) L 07/10/17 04:15 Magnesium 1.6 mg/dL (1.6-2.6) 07/10/17 04:15 Urine Creatinine 52 mg/dL 07/09/17 19:25 Urine Sodium 29.0 mEq/L 07/09/17 19:25 Urine Total Protein SEE NOTE mg/d (10-140) 07/09/17 19:25 - Attending Attestation I examined this patient and my medical decision-making was reviewed with the Resident Physician. I agree with the documented findings, disposition and treatment plan as described except to the extent set forth below. Pt seen and examined with improving SCr at 1.33 with IVF, will continue and encourage po fluids as well. UOP good. Continue to avoid nephrotoxins if possible. Folowup BMP within 1-2 weeks on discharge with followup within 4 weeks.
[2017-07-10] MEDS: Insulin LISPRO 300 UNITS/3 ML VIAL SQ SCH ×2 (09:05→12:10)
[2017-07-10] MEDS: Insulin DETEMIR 100 UNIT/ML X5UNITS SQ SCH (09:14)
[2017-07-10] MEDS: Topiramate 25 MG TABLET PO SCH (09:15)
[2017-07-10] MEDS: Folic Acid 1 MG TABLET PO SCH (09:15)
[2017-07-10] MEDS: Magnesium Oxide 400 MG TABLET PO SCH (09:15)
[2017-07-10] MEDS: Pregabalin 75 MG CAPSULE PO SCH (09:16)
[2017-07-10] MEDS: Aspirin 81 MG TAB.CHEW PO SCH (09:16)
[2017-07-10] MEDS: Ascorbic Acid 500 MG TABLET PO SCH (09:16)
[2017-07-10] MEDS: Loratadine 10 MG TABLET PO SCH (09:16)
[2017-07-10] MEDS: traMADol 50 MG TABLET PO SCH (09:16)
[2017-07-10] MEDS: Metoprolol XL (24 HR) Succ 25 MG TAB.ER.24H PO SCH (09:16)
[2017-07-10] MEDS: Cyanocobalamin (B-12) 1,000 MCG TABLET PO SCH (09:17)
[2017-07-10] MEDS: Fluticasone Propionate Nasal 50 MCG/SPRAY BOTTLE NS SCH (09:21)
[2017-07-10 11:31] VITALS: BP 124/61
--- NOTE | 2017-07-10 11:52 | Discharge Summary ---
Date of Encounter: 07/10/17 Time of Encounter: 11:45 - Discharge Diagnosis (1) Abdominal pain Priority: Primary Status: Resolved Comments: Presented initially with acute abdominal pain. Work up not really conclusive most likely etiology being acute gastritis versus gastroenteritis versus gastroparesis Qualifiers: Abdominal location: left upper quadrant Qualified Code(s): R10.12 - Left upper quadrant pain (2) Acute renal failure Priority: Secondary Status: Resolved Comments: Resolving at the time of discharge Qualifiers: Acute renal failure type: unspecified Qualified Code(s): N17.9 - Acute kidney failure, unspecified (3) HTN (hypertension) Priority: Secondary Status: Chronic Qualifiers: Hypertension type: essential hypertension Qualified Code(s): I10 - Essential (primary) hypertension (4) CLL (chronic lymphocytic leukemia) Priority: Secondary Status: Chronic (5) Type 2 diabetes mellitus Priority: Secondary Status: Chronic Qualifiers: Diabetes mellitus complication status: with kidney complications Diabetes mellitus complication detail: with chronic kidney disease Diabetes mellitus prison insulin use: 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 intermodal yard use Chronic kidney disease stage: stage 3 (moderate) Qualified Code(s): E11.22 - Type 2 diabetes mellitus with diabetic chronic kidney disease; N18.3 - Chronic kidney disease, stage 3 ( moderate); N18.3 - Chronic kidney disease, stage 3 (moderate); Z79.4 - director long term care (current) use of insulin; Z79.4 - director long term care (current) use of insulin; Z79.4 - shelter (current) use of insulin; Z79.4 - shelter (current) use of insulin - Discharge Medications Prescriptions: Ranitidine HCl [Zantac] 150 mg PO DAILY #30 tablet Home Medications: Aspirin 81 mg PO DAILY 04/05/15 [History] Atorvastatin [Lipitor] 40 mg PO DAILY 04/05/15 [History] Insulin LISPRO [HumaLOG] 0 units SQ TIDAC 04/05/15 [History] Topiramate [Topamax] 25 mg PO BID 08/23/15 [History] Folic Acid 1 mg PO DAILY #30 tablet 09/18/15 [Rx] Ergocalciferol (VITAMIN D2) [Vitamin D2 (50,000 UNIT)] 50,000 unit PO WE [History] Primidone [Mysoline] 50 mg PO HS 02/28/16 [History] Ascorbic Acid [Vitamin C] 500 mg PO DAILY 03/06/16 [History] Ferrous Sulfate [Iron] 325 mg PO DAILY 03/06/16 [History] Fluticasone Propionate Nasal [Flonase] 2 spray NS DAILY 11/26/16 [History] Insulin Glargine/Lixisenatide [Soliqua 100 Unit-33 Mcg/ml Pen] 60 unit SQ HS [History] Tramadol HCl [Ultram] 50 mg PO TID 11/26/16 [History] Cyanocobalamin (Vitamin B-12) [Vitamin B-12] 500 mcg PO DAILY 05/06/17 [History] Furosemide [Lasix] 20 mg PO DAILY PRN 05/06/17 [History] Linagliptin [Tradjenta] 5 mg PO DAILY 05/06/17 [History] Loratadine [Claritin] 10 mg PO DAILY 05/06/17 [History] Metoprolol XL (24 HR) Succ [Toprol Xl] 25 mg PO DAILY 05/06/17 [History] Pioglitazone [Actos] 15 mg PO 0800 05/06/17 [History] Pregabalin [Lyrica] 75 mg PO TID 05/06/17 [History] Sucralfate [Carafate] 1 gm PO QID 05/06/17 [History] Magnesium Oxide [Magnesium] 400 mg PO DAILY 07/07/17 [History] Acetaminophen [Tylenol] 650 mg PO Q6HR PRN tablet 07/10/17 [Rx] Glucagon, Human Recombinant [Glucagen] 1 mg IM ONCE PRN vial 07/10/17 [Rx] Ranitidine HCl [Zantac] 150 mg PO DAILY #30 tablet 07/10/17 [Rx] Allergies/Adverse Reactions: 3 Allergy/AdvReac Type Severity Reaction Status Date / Time metformin Allergy Nausea Verified 07/06/17 04:30 Sulfa (Sulfonamide Allergy Nausea Verified 07/06/17 04:30 Antibiotics) sulfamethoxazole Allergy Nausea Verified 07/06/17 04:30 [From Bactrim] trimethoprim [From Bactrim] Allergy Nausea Verified 07/06/17 04:30 Procedures/tests Complete & Pending: For outpatient [id number] repeating a CMP within one to 2 weeks time prior to discharge with nephrology and primary care physician - Notes to Outpatient Provider For outpatient [id number] repeating a CMP within one to 2 weeks time prior to discharge with nephrology and primary care physician Date of admission: 07/09/17 16:00 Primary care physician: Mariaelena Vasquez CNP - Patient Status Disposition: Home, Self-Care Functional capacity at discharge: independent ambulation Overall status at discharge: patient is progressing back to baseline - Ambulatory Orders Ambulatory Orders: Basic Metabolic Panel [CHEM] Time Frame: 1 Week, Facility: [facility], Location: Lab - Discharge Instructions Follow Up With: Tung Larry, [Partnered Physician] - (Appointment requested, they will call you with appointment, if you do not hear from them by 07/15/17, call number provided) Mariaelena Vasquez CNP [Primary Care Provider] - (Appointment requested, office will call you with appointment date and time. Call office by 07/15/17 if you do not here from them.) Additional Instructions: Have a repeat renal function test- this is a blood test to be repeated prior to your appointment with your primary care physician or clinical transplant coordinator please do so within a week - Diet and Activity Activity: increase activity as tolerated Diet: diabetic diet Hospital course: Ms. Vargas is a 66 year old female with past medical history of diabetes mellitus, CLL, chronic kidney disease stage III who was admitted with abdominal pain, nausea, vomiting the patient was started on IV fluids and pain control. Initial imaging failed to review any clear diagnosis her most likely etiology of the pain was due to gastroenteritis versus gastritis versus gastroparesis she was placed on IV Reglan and was gradually able to keep food down. Her symptoms resolved significantly and she was transitioned to clear liquid diet and then to a full diet at the time of discharge. She is able to tolerate a 4 diet her pain is significantly improved in her hydration has been stopped. During the hospital course she also had a worsening offer renal failure. Nephrology was consulted a clinical ultrasound failed to review any new worsening her creatinine slowly did respond to every fluid challenge and at the time of discharge was trending down from 1.6-to 1.3 I spoke to her outpatient clinical transplant coordinator, and they will arrange for an outpatient follow-up within one to 2 weeks time to repeat an outpatient BMP the patient has also been instructed to follow-up with her primary care physician for the same. - Time Spent with Patient Total time spent providing and/or coordinating discharge services: Greater than 30 minutes - Constitutional Vitals: Temp Pulse Resp BP Pulse Ox 98.3 F 77 16 124/61 95 07/10/17 11:29 07/10/17 11:29 07/10/17 11:29 07/10/17 11:29 07/10/17 11:29 General appearance: Present: cooperative, mild distress, A&O X 3, answers questions appropriately Exam: General , Alert , oriented, mild distress HEENT- PERRLA. EOMI CVS- S1S2 N, No Murmurs, Rubs, gallops, No JVD RS- CTA Bilaterally. No rales no Rhonchi heard Abdomen- Soft mildly tender to palpation in the left upper quadrant, bowel sounds heard across all 4 quadrants Neuro- No Focal deficits appreciated, CN 2-12 intact, Motors- power 5/5 UE, 5/5 LE Bilaterally, Sensations intact Extremeties- no Clubbing/ edema/ wounds seen
[2017-07-12 15:48] LABS: Urine Collection Duration RANDOM hr; Urine Collection Volume RANDOM mL
[2017-07-12 23:16] LABS: Alpha 2 Globulin (PEP) 0.85 g/dL (0.48-1.05); Beta Globulin (PEP) 0.53 g/dL (0.48-1.10)
[2017-07-13 08:50] LABS: Immunoglobulin G 207 mg/dL (768-1632)
[2017-07-13 08:51] LABS: IFE Reflexed IFE Done; Immunoglobulin A 54 mg/dL (68-408); Immunoglobulin M < 5 mg/dL (35-263)
== END 2017-07-10 13:16 | disposition home or self-care (01) | DRG 74 ==
LOC: 3NENU 20:38 → EMEROO 20:38 → SUATTDRO 07-08 00:57 → 3NENU 07-08 01:36 → 1NENUPED 07-08 08:47
PROVIDERS: ADMIT Internal Medicine; ATTEND Internal Medicine

== ENCOUNTER 2017-08-16 07:08 | Inpatient (IN) ==
--- NOTE | 2017-08-16 07:46 | Emergency Department Note ---
Disposition Clinical Impression: Intractable pain, UTI (urinary tract infection) with pyuria Intractable vomiting with nausea Qualifiers: Vomiting type: unspecified Qualified Code(s): R11.2 - Nausea with vomiting, unspecified Disposition: Admitted As Inpatient Condition: Good Reasons to Return/Additional Instructions: Admitted as inpatient Time of Disposition: 11:46 Abdominal Pain HPI - General Chief Complaint: ED Abdominal Pain Stated Complaint: abd pain Time Seen by Provider: 08/16/17 07:24 Source: patient Mode of arrival: ambulatory Limitations: no limitations Nursing Notes Reviewed: Yes Vital Signs Reviewed: Yes - History of Present Illness HPI Narrative: 67-year-old female with past medical history of type 2 diabetes, CKD, CLL since emergency department with a complaint of nausea, vomiting, abdominal pain starting last evening. She states that her symptoms were sudden onset, and describes her pain as sharp in nature diffuse across the abdomen worse in the right lower quadrant sharp in nature. Intensity is 10/10. She states she is experienced these symptoms multiple times in the past including an admission in June 2017 for which she had no identifiable source. She was discharged home on Carafate which she states has not been helping. He did receive a abdominal CT scan at that time which was negative for acute pathology. She denies any exacerbating or relieving symptoms. She states she has had approximately 4 episodes of vomiting with food-like contents, bowel movements have been normal for her. Pt Subjective Complaint: abdominal pain Onset (ago): hour(s) Consistency: constant Location: diffuse, RLQ Pain Scale: 10 Quality: sharp Improves with: nothing Worsens with: nothing Associated symptoms: Reports: nausea, vomiting, fever. Denies: diarrhea, chills , constipation, hematemesis, hematochezia, melena - Related Data Home Medications Medication Instructions Recorded Confirmed Aspirin 81 mg PO DAILY 04/05/15 07/07/17 Atorvastatin [Lipitor] 40 mg PO DAILY 04/05/15 07/07/17 Insulin LISPRO [HumaLOG] 0 units SQ TIDAC 04/05/15 07/07/17 Topiramate [Topamax] 25 mg PO BID 08/23/15 07/07/17 Ergocalciferol (VITAMIN D2) 50,000 unit PO WE 02/28/16 07/07/17 [Vitamin D2 (50,000 UNIT)] Primidone [Mysoline] 50 mg PO HS 02/28/16 07/07/17 Ascorbic Acid [Vitamin C] 500 mg PO DAILY 03/06/16 07/07/17 Ferrous Sulfate [Iron] 325 mg PO DAILY 03/06/16 07/07/17 Fluticasone Propionate Nasal 2 spray NS DAILY 11/26/16 07/07/17 [Flonase] Insulin Glargine/Lixisenatide 60 unit SQ HS 11/26/16 07/07/17 [Soliqua 100 Unit-33 Mcg/ml Pen] Tramadol HCl [Ultram] 50 mg PO TID 11/26/16 07/07/17 Cyanocobalamin (Vitamin B-12) 500 mcg PO DAILY 05/06/17 07/07/17 [Vitamin B-12] Furosemide [Lasix] 20 mg PO DAILY PRN 05/06/17 07/07/17 Linagliptin [Tradjenta] 5 mg PO DAILY 05/06/17 07/07/17 Loratadine [Claritin] 10 mg PO DAILY 05/06/17 07/07/17 Metoprolol XL (24 HR) Succ [Toprol 25 mg PO DAILY 05/06/17 07/07/17 Xl] Pioglitazone [Actos] 15 mg PO 0800 05/06/17 07/07/17 Pregabalin [Lyrica] 75 mg PO TID 05/06/17 07/07/17 Sucralfate [Carafate] 1 gm PO QID 05/06/17 07/07/17 Magnesium Oxide [Magnesium] 400 mg PO DAILY 07/07/17 07/07/17 Previous Rx's Medication Instructions Recorded Folic Acid 1 mg PO DAILY #30 tablet 09/18/15 Acetaminophen [Tylenol] 650 mg PO Q6HR PRN tablet 07/10/17 Glucagon, Human Recombinant 1 mg IM ONCE PRN vial 07/10/17 [Glucagen] Ranitidine HCl [Zantac] 150 mg PO DAILY #30 tablet 07/10/17 Allergies Allergy/AdvReac Type Severity Reaction Status Date / Time metformin Allergy Nausea Verified 07/06/17 04:30 Sulfa (Sulfonamide Allergy Nausea Verified 07/06/17 04:30 Antibiotics) sulfamethoxazole Allergy Nausea Verified 07/06/17 04:30 [From Bactrim] trimethoprim [From Bactrim] Allergy Nausea Verified 01/22/18 04:30 All systems ED: reviewed and negative except as stated. Review of Systems: As Per HPI Abdominal Pain PMH - Past Medical History Medical history: Reports: cancer, coronary artery disease, diabetes, hypertension, renal disease, other Female Surgical History: Reports: appendectomy, cholecystectomy SILK EXAMINER history: Reports: no SILK EXAMINER history Psychiatric history: Reports: no psych history - Social History Smoking status: Never smoker Alcohol use: Reports: none Drug use: Reports: none Physical Exam - General Limitations: no limitations General appearance: alert - Head Head exam: atraumatic, normocephalic, normal inspection - ENT ENT exam: normal exam, normal oropharynx, mucous membranes moist - Chest Chest inspection: Present: normal inspection, symmetric chest wall rise - Respiratory Respiratory exam: Present: normal lung sounds bilaterally - Cardiovascular Cardiovascular exam: Present: regular rate, normal rhythm, normal heart sounds - Abdominal Exam Abdominal exam: Present: soft, tenderness, distention, normal bowel sounds. Absent: guarding, rebound, rigidity, organomegaly Abdominal tenderness: Present: RLQ, diffuse - Extremities Exam Extremities exam: Present: normal inspection, full ROM, pedal edema. Absent: tenderness - Neurological Exam Neurological exam: Present: alert, oriented X3 - Psychiatric Psychiatric exam: Present: normal affect - Skin Skin exam: Present: warm, dry, intact, normal color Course Course Narrative: 67-year-old female presented to emergency department with a complaint of abdominal pain, nausea, vomiting. We will obtain labs of CBC, BMP, lipase, hepatic panel, lactic acid. Start on fluids, zofran, GI cocktail. - Reevaluation(s) Reevaluation #1: Labs reviewed in near baseline. Patient is continually having abdominal pain, nausea. He did discuss admission versus discharge home with close follow-up. Daughter and patient agree that admission will most likely be beneficial as she is continually having symptoms and has a tendency to go home with dehydration secondary to decreased oral intake as well as continuous vomiting. Will discuss this with the hospitalist. Vital Signs Temperature 97.5 F L 08/16/17 07:10 Pulse Rate 88 08/16/17 07:10 Respiratory Rate 18 08/16/17 07:10 Blood Pressure 143/86 08/16/17 07:10 O2 Sat by Pulse Oximetry 96 08/16/17 07:10 Temperature 97.5 F L 08/16/17 07:10 Pulse Rate 91 08/16/17 09:57 Respiratory Rate 16 08/16/17 09:57 Blood Pressure 125/68 08/16/17 09:57 O2 Sat by Pulse Oximetry 93 08/16/17 09:57 Oxygen Delivery Oxygen Delivery Room Air Abdominal Pain - MDM Narrative Medical decision making narrative: 67-year-old female presenting to the complaint of nausea, vomiting, abdominal pain. Negative for a WBC of 19, ear baseline in the setting of CLL. Creatinine of 1.24, urinalysis suggestive of infection. Chest x-ray was negative for acute pathology. She did receive a bolus of normal saline 1 L, 1 g ceftriaxone for UTI, Zofran, GI cocktail, [place] with minimal relief of symptoms. Patient continues to complain of 8/10 abdominal pain as well as continued nausea. After discussing this with patient and her family was present at bedside and they would feel more comfortable with admission as they state that patient typically goes home and becomes dehydrated secondary to decreased oral intake and continued vomiting. Discussed with hospitalist, agreed for an observation admission. - Lab Data Result diagrams: 08/16/17 07:29 08/16/17 07:29 Lab Results 08/16/17 08/16/17 08/16/17 Range/Units 07:29 07:29 07:29 WBC 19.1 H (4.3-11.1) K/mcL RBC 4.24 (3.82-4.97) M/mcL Hgb 12.1 (11.5-15.4) g/dL Hct 38.3 (35.3-44.9) % MCV 90.3 (83.0-100.0) fL MCH 28.5 (28.0-33.3) pg MCHC 31.6 (31.6-35.5) g/dL RDW 14.1 (11.5-14.5) % Plt Count 128 L (140-400) K/mcL MPV 10.9 (9.4-12.4) fL Immature Gran % 0.7 (0-4) % Seg Neutrophils % 25.7 % Lymphocytes % 70.7 % Monocytes % 2.1 % Eosinophils % 0.5 % Basophils % 0.3 % Neutrophils # 4.9 (1.6-8.9) K/mcL Lymphocytes # 13.5 H (0.6-4.6) K/mcL Monocytes # 0.4 (0.0-1.3) K/mcL Eosinophils # 0.1 (0.0-0.6) K/mcL Basophils # 0.1 (0.0-0.2) K/mcL Platelet Estimate Slight Decrease L (Normal) Sodium 140 (136-145) mEq/L Potassium 3.6 (3.5-5.1) mEq/L Chloride 103 (98-107) mEq/L Carbon Dioxide 27 (23-29) mEq/L BUN 19 (8-23) mg/dL Creatinine 1.24 H (0.60-1.20) mg/dL Est GFR ( Amer) 52 L (> 60) Est GFR (Non-Af Amer) 43 L (> 60) BUN/Creatinine Ratio 15 (6-26) Glucose 269 H (70-105) mg/dL Calculated Osmolality 302 H (280-300) Lactic Acid 2.5 H (0.5-2.2) mmol/L Calcium 9.5 (8.6-10.3) mg/dL Total Bilirubin 0.4 (0.3-1.0) mg/dL Direct Bilirubin 0.1 (0.0-0.2) mg/dL Indirect Bilirubin 0.3 (0.0-1.2) mg/dL AST 11 L (13-39) Units/L ALT 12 (7-52) Units/L Alkaline Phosphatase 99 (34-104) Units/L Serum Total Protein 6.4 (6.4-8.9) g/dL Albumin 4.1 (3.5-5.7) g/dL Globulin 2.3 L (2.4-3.5) g/dL Albumin/Globulin Ratio 1.8 (1.1-2.2) Amylase 36 (29-103) Units/L Lipase 41 (11-82) Units/L Urine Color (Yellow) Urine Clarity (Clear) Urine pH (5.0-8.0) pH Units Ur Specific [place] (1.010-1.025) Urine Protein (Neg-Trace) mg/dL Urine Glucose (UA) (Normal) mg/dL Urine Ketones (Negative) mg/dL Urine Blood (Negative) Urine Nitrite (Negative) Urine Bilirubin (Negative) Urine Urobilinogen (Normal) mg/dL Ur Leukocyte Esterase (Negative) Urine Microscopic RBC (0-3) per hpf Urine Microscopic WBC (0-3) per hpf Ur Squamous Epith Cells (None-Few) per lpf Urine Bacteria (None-Few) per hpf Ur Culture Indicated? (NO) 08/16/17 Range/Units 08:05 WBC (4.3-11.1) K/mcL RBC (3.82-4.97) M/mcL Hgb (11.5-15.4) g/dL Hct (35.3-44.9) % MCV (83.0-100.0) fL MCH (28.0-33.3) pg MCHC (31.6-35.5) g/dL RDW (11.5-14.5) % Plt Count (140-400) K/mcL MPV (9.4-12.4) fL Immature Gran % (0-4) % Seg Neutrophils % % Lymphocytes % % Monocytes % % Eosinophils % % Basophils % % Neutrophils # (1.6-8.9) K/mcL Lymphocytes # (0.6-4.6) K/mcL Monocytes # (0.0-1.3) K/mcL Eosinophils # (0.0-0.6) K/mcL Basophils # (0.0-0.2) K/mcL Platelet Estimate (Normal) Sodium (136-145) mEq/L Potassium (3.5-5.1) mEq/L Chloride (98-107) mEq/L Carbon Dioxide (23-29) mEq/L BUN (8-23) mg/dL Creatinine (0.60-1.20) mg/dL Est GFR ( Amer) (> 60) Est GFR (Non-Af Amer) (> 60) BUN/Creatinine Ratio (6-26) Glucose (70-105) mg/dL Calculated Osmolality (280-300) Lactic Acid (0.5-2.2) mmol/L Calcium (8.6-10.3) mg/dL Total Bilirubin (0.3-1.0) mg/dL Direct Bilirubin (0.0-0.2) mg/dL Indirect Bilirubin (0.0-1.2) mg/dL AST (13-39) Units/L ALT (7-52) Units/L Alkaline Phosphatase (34-104) Units/L Serum Total Protein (6.4-8.9) g/dL Albumin (3.5-5.7) g/dL Globulin (2.4-3.5) g/dL Albumin/Globulin Ratio (1.1-2.2) Amylase (29-103) Units/L Lipase (11-82) Units/L Urine Color Yellow (Yellow) Urine Clarity Cloudy A (Clear) Urine pH 6.0 (5.0-8.0) pH Units Ur Specific [place] > 1.030 H (1.010-1.025) Urine Protein Trace (Neg-Trace) mg/dL Urine Glucose (UA) Normal (Normal) mg/dL Urine Ketones Negative (Negative) mg/dL Urine Blood Negative (Negative) Urine Nitrite Positive A (Negative) Urine Bilirubin Negative (Negative) Urine Urobilinogen Normal (Normal) mg/dL Ur Leukocyte Esterase Small H (Negative) Urine Microscopic RBC 0-3 (0-3) per hpf Urine Microscopic WBC 50-100 H (0-3) per hpf Ur Squamous Epith Cells Many H (None-Few) per lpf Urine Bacteria Many H (None-Few) per hpf Ur Culture Indicated? NO. (NO) Attestation Statement - Attestation Attestation: I, Yanick Isaac DO, examined this patient [id number] and my medical decision-making was reviewed with Bayron Null PGY-1, Resident Physician. I agree with the documented findings, disposition and treatment plan as described except to the extent set forth below. Please see my progress notes for details. 67-year-old female presents to the emergency room with what appears to be an exacerbation of chronic undifferentiated epigastric pain. Patient has been seen and evaluated multiple times in the hospital setting with multiple CT scans have all shown no acute pathology or attributable source to her symptoms. Patient had onset of the symptoms within the last 6-12 hours. She denies any trauma or injury. She denies any recent illnesses. Her main concern is she was not able to take her medications this morning and she has pain across her epigastrium. Vital signs are stable on presentation except for some tachycardia intermittently dependent upon her discomfort. On physical exam is a morbidly obese female she has multiple medical issues including CLL that has been chronic for over 18 years. Patient currently denying fevers or chills chest pain shortness of breath headaches vision changes. Her main complaint is poorly controlled nausea vomiting with no diarrhea. Patient otherwise is resting comfortably in the bed. Vital signs are otherwise unremarkable. Physical exam is stable this time. Lungs are clear heart is regular. No murmurs noted. Abdomen is soft patient does have tenderness in the epigastrium across the right upper and left upper quadrants. She has no point tenderness guarding rigidity or peritoneal-like symptoms. She has no CVA tenderness. She has no rashes or lesions noted or described according to her. She moves all 4 extremities. She has no signs of pitting edema lower extremities. Patient will be provided with fluids and diabetic medication and GI cocktail secondary to her chronic gastritis for which she is currently taking Carafate. Patient does not require CT imaging of the abdomen at this point considering this is an acute exacerbation of a chronic issue. She said that presents identical to all of her other events. She just had a CAT scan within the last 30 days and does not feel that it will change the management this time. Clinically I feel that this is reasonable choice. Patient will have EKG chest x-ray and screening labs completed this time including liver function tests and lipase. Resuscitative measures will be established disposition to be determined once the workup is completed. See detailed documentation of the physical exam, medical intervention, medical decision-making and disposition and the resident physician's note. No critical care provider this patient's treatment course of this time. 1200 Patient has negative workup in the emergency room. Hospitalist Dr. hayward has come to the emergency room and evaluated the patient the bedside. Patient was describing some chest discomfort for which she did not discuss initially. He requested an EKG and troponin to be added on. Patient will have this started here in the emergency room. Aspirin will be withheld until further workup is established and completed. Acute coronary syndrome was not initially on the differential but will be addressed here at this time. Admission process will be completed for intractable nausea and vomiting along with abdominal pain with unknown etiology. Patient is comfortable with the plan. Vital signs remained stable. Labs are unremarkable. Disposition will be admitted to the hospital for further evaluation and management.
[2017-08-16 07:49] LABS: Basophils # 0.1 K/mcL (0.0-0.2); Basophils % 0.3 %; Eosinophils # 0.1 K/mcL (0.0-0.6); Eosinophils % 0.5 %; Hematocrit 38.3 % (35.3-44.9); Hemoglobin 12.1 g/dL (11.5-15.4); Immature Granulocytes % 0.7 % (0-4); Lymphocytes # 13.5 K/mcL (0.6-4.6); Lymphocytes % 70.7 %; Mean Corpuscular HGB Conc 31.6 g/dL (31.6-35.5); Mean Corpuscular Hemoglobin 28.5 pg (28.0-33.3); Mean Corpuscular Volume 90.3 fL (83.0-100.0); Mean Platelet Volume 10.9 fL (9.4-12.4); Monocytes # 0.4 K/mcL (0.0-1.3); Monocytes % 2.1 %; Neutrophils # 4.9 K/mcL (1.6-8.9); Platelet Count 128 K/mcL (140-400); Red Blood Count 4.24 M/mcL (3.82-4.97); Red Cell Distribution Width 14.1 % (11.5-14.5); Segmented Neutrophils % 25.7 %
[2017-08-16] MEDS ORDERED: Ondansetron 4 MG/2 ML VIAL IVP ONE (07:56)
[2017-08-16] MEDS ORDERED: 0.9 % Sodium Chloride 1,000 ML IVC ONE (07:56)
[2017-08-16 07:59] LABS: Platelet Estimate Slight Decrease (Normal)
[2017-08-16 08:10] LABS: Alanine Aminotransferase 12 Units/L (7-52); Albumin 4.1 g/dL (3.5-5.7); Albumin/Globulin Ratio 1.8 (1.1-2.2); Alkaline Phosphatase 99 Units/L (34-104); Amylase 36 Units/L (29-103); Aspartate Amino Transferase 11 Units/L (13-39); BUN/Creatinine Ratio 15 (6-26); Bilirubin,Direct 0.1 mg/dL (0.0-0.2); Blood Urea Nitrogen 19 mg/dL (8-23); Calcium 9.5 mg/dL (8.6-10.3); Carbon Dioxide 27 mEq/L (23-29); Chloride 103 mEq/L (98-107); Globulin 2.3 g/dL (2.4-3.5); Glucose 269 mg/dL (70-105); Lipase 41 Units/L (11-82); Osmolality,Calculated 302 (280-300); Potassium 3.6 mEq/L (3.5-5.1); Sodium 140 mEq/L (136-145); Total Protein 6.4 g/dL (6.4-8.9); eGFR For African Americans 52 (> 60); eGFR For Non-African Americans 43 (> 60)
[2017-08-16] MEDS ORDERED: GI Cocktail 40 ML EACH PO ONE (08:15)
[2017-08-16 08:21] LABS: Bilirubin,Urine Negative (Negative); Blood,Urine Negative (Negative); Clarity,Urine Cloudy (Clear); Color,Urine Yellow (Yellow); Glucose,Urine (UA) Normal (Normal); Ketones,Urine Negative (Negative); Leukocyte Esterase,Urine Small (Negative); Nitrite,Urine Positive (Negative); Protein,Urine Trace mg/dL (Neg-Trace); Specific Gravity,Urine > 1.030 (1.010-1.025); Urobilinogen,Urine Normal (Normal)
[2017-08-16 08:24] LABS: Bacteria,Urine Many per hpf (None-Few); RBC,Urine 0-3 per hpf (0-3); Squamous Epithelial Cell,Urine Many per lpf (None-Few); WBC,Urine 50-100 per hpf (0-3)
[2017-08-16] MEDS ORDERED: *HR* Promethazine 25 MG/ML VIAL IVP ONE (09:15)
[2017-08-16] MEDS ORDERED: *HR* HYDROcodone/Acet 5/325 mg TABLET PO ONE (09:18)
[2017-08-16 10:43] LABS: Bilirubin,Indirect 0.3 mg/dL (0.0-1.2); Bilirubin,Total 0.4 mg/dL (0.3-1.0)
[2017-08-16] MEDS ORDERED: cefTRIAXone 1,000 MG in Water for inj. (sterile) 20 ML 10 ML IVP ONE (10:48)
--- NOTE | 2017-08-16 12:15 | Internal Med History&Physical ---
Date of Encounter: 08/16/17 Time of Encounter: 12:12 Assessment and Plan (1) Abdominal pain Current visit: No Status: Acute Could be secondary to diabetic gastroparesis or acute gastritis versus esophagitis. Cardiac etiology is also considered. Therefore will check troponin and EKG. She did have a stress test done within the last 6 months which was reviewed in our system and shows normal ejection fraction, perfusion imaging not suggestive of ischemia. Qualifiers: Abdominal location: epigastric Qualified Code(s): R10.13 - Epigastric pain (2) Acute kidney injury superimposed on chronic kidney disease Current visit: No Status: Acute Chart review shows baseline creatinine of 0.9 in June 2017. Currently 1.24. Likely secondary to dehydration due to nausea vomiting decreased oral intake. We will treat with IV fluids. Avoid nephrotoxins. (3) Gastroparesis Current visit: No Status: Acute Endoscopy report suggests gastroparesis. Recommend more stringent outpatient diabetes control. Could try Reglan if symptoms do not improve. (4) Nausea & vomiting Current visit: No Status: Acute IV Zofran. Nothing by mouth. Qualifiers: Vomiting type: cyclical vomiting Vomiting Intractability: intractable Qualified Code(s): G43.A1 - Cyclical vomiting, intractable (5) Reflux esophagitis Current visit: No Status: Acute IV PPI. (6) CLL (chronic lymphocytic leukemia) Current visit: No Status: Chronic Outpatient follow-up. (7) Type 2 diabetes mellitus Current visit: No Status: Chronic Diabetic diet. Check A1c. Blood glucose fingersticks and insulin sliding scale. 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 She had a similar episode last fall, I reviewed the record and found that she had an endoscopy done which found gastritis and esophagitis. We will admit the patient. Supportive care. IV fluids. Pain control. Given recurrent symptoms I highly suspect H. pylori infection and therefore I will start empiric triple antibiotic treatment. Qualifiers: Gastritis type: superficial Qualified Code(s): K29.00 - Acute gastritis without bleeding Internal Medicine - H&P: HPI Chief complaint: Abdominal pain Admitted From: Emergency Dept Plans for Post Hospital Care: Home History of present illness: Ms. Vargas is a 67 year old female with past medical history significant for CLL, chronic renal insufficiency, hypertension and diabetes presents for evaluation of abdominal pain. She was admitted in June for similar symptoms and treated for acute gastritis. She had been in her usual state of health until yesterday evening when she started having epigastric abdominal pain. Overnight had become severe, described as epigastric location sharp stabbing, 10 /10 in intensity associated with multiple episodes of nonbloody nonbilious vomiting. She also reports sharp midsternal chest pain graded at 8/10, on and off, without aggravating or alleviating factors. Workup in the emergency department was not revealing. She was referred for admission and further care. A 10 point review of systems was negative except as stated above. Family history positive for coronary artery disease in the patient's mother and breast cancer in the patient's sister. Social history: Denies tobacco alcohol and drug use. Lives at home independently. Past Med Surg Social Fam HX - Past Medical History Medical history: cancer, coronary artery disease, diabetes, hypertension, renal disease, other Psychiatric history: no psych history - Past Surgical History Surgical History: cholecystectomy, THERESE/BSO, other - Social History Smoking Status: Never smoker Smokeless Tobacco Status: No Alcohol use: none Drug use: none - Family History Mother Family Member Ethnicity: Non- Living Status: Hx Family Cardiac Disorders: No Hx Family Respiratory Disorders: No Hx Family Cancer: No Hx Family GI Disorders: No Hx Family Endocrine Disorder: Yes (DM) Hx Family Neuromuscular Disorders: No Hx Family Neurologic Disorders: No Hx Family HEENT Disorders: No Hx Family Autoimmune Disorders: No Father Adopted: No Family Member Ethnicity: Non- Living Status: Hx Family Cardiac Disorders: Yes ([place]) Hx Family Respiratory Disorders: No Hx Family Cancer: No Hx Family GI Disorders: No Hx Family Endocrine Disorder: No Hx Family Neuromuscular Disorders: No Hx Family Neurologic Disorders: No Hx Family HEENT Disorders: No Hx Family Autoimmune Disorders: No Internal Medicine - H&P: Meds Aspirin 81 mg PO DAILY 04/05/15 [History] Atorvastatin [Lipitor] 40 mg PO DAILY 04/05/15 [History] Insulin LISPRO [HumaLOG] 0 units SQ TIDAC 04/05/15 [History] Topiramate [Topamax] 25 mg PO BID 08/23/15 [History] Folic Acid 1 mg PO DAILY #30 tablet 09/18/15 [Rx] Ergocalciferol (VITAMIN D2) [Vitamin D2 (50,000 UNIT)] 50,000 unit PO WE [History] Primidone [Mysoline] 50 mg PO HS 02/28/16 [History] Ascorbic Acid [Vitamin C] 500 mg PO DAILY 03/06/16 [History] Ferrous Sulfate [Iron] 325 mg PO DAILY 03/06/16 [History] Fluticasone Propionate Nasal [Flonase] 2 spray NS DAILY 11/26/16 [History] Insulin Glargine/Lixisenatide [Soliqua 100 Unit-33 Mcg/ml Pen] 60 unit SQ HS [History] Tramadol HCl [Ultram] 50 mg PO TID 11/26/16 [History] Cyanocobalamin (Vitamin B-12) [Vitamin B-12] 500 mcg PO DAILY 05/06/17 [History] Furosemide [Lasix] 20 mg PO DAILY PRN 05/06/17 [History] Linagliptin [Tradjenta] 5 mg PO DAILY 05/06/17 [History] Loratadine [Claritin] 10 mg PO DAILY 05/06/17 [History] Metoprolol XL (24 HR) Succ [Toprol Xl] 25 mg PO DAILY 05/06/17 [History] Pioglitazone [Actos] 15 mg PO 0800 05/06/17 [History] Pregabalin [Lyrica] 75 mg PO TID 05/06/17 [History] Sucralfate [Carafate] 1 gm PO QID 05/06/17 [History] Magnesium Oxide [Magnesium] 400 mg PO DAILY 07/07/17 [History] Acetaminophen [Tylenol] 650 mg PO Q6HR PRN tablet 07/10/17 [Rx] Glucagon, Human Recombinant [Glucagen] 1 mg IM ONCE PRN vial 07/10/17 [Rx] Ranitidine HCl [Zantac] 150 mg PO DAILY #30 tablet 07/10/17 [Rx] 3 Allergy/AdvReac Type Severity Reaction Status Date / Time metformin Allergy Nausea Verified 07/06/17 04:30 Sulfa (Sulfonamide Allergy Nausea Verified 07/06/17 04:30 Antibiotics) sulfamethoxazole Allergy Nausea Verified 07/06/17 04:30 [From Bactrim] trimethoprim [From Bactrim] Allergy Nausea Verified 07/06/17 04:30 All Systems PM: A 10-system review of systems was performed and is negative for pertinent findings except as documented above in the HPI. - Constitutional Vitals: Temp Pulse Resp BP Pulse Ox 97.5 F L 91 16 125/68 93 08/16/17 07:10 08/16/17 09:57 08/16/17 09:57 08/16/17 09:57 08/16/17 09:57 General appearance: Present: mild distress, A&O X 3 - Neck Neck exam general surgery: Present: supple, trachea midline. Absent: lymphadenopathy - Respiratory Respiratory exam: Present: CTAB. Absent: accessory muscle use, rales, rhonchi, wheezes - Cardiovascular Cardiovascular exam: Present: RRR, +S1, +S2. Absent: diastolic murmur, gallop, rubs, systolic murmur - GI/Abdominal GI/Abdominal exam: Present: normal bowel sounds, soft, tenderness (Tender to palpation in the epigastric area, no rebound), no peritoneal signs. Absent: distended - Extremities Exam Extremities exam: Present: warm, radial pulses palpable and symmetrical. Absent : calf tenderness, cyanotic, pedal edema - Neurological Exam Neurological exam: Present: CN II-XII intact, oriented X3, no focal deficits. Absent: pronater drift, facial droop, speech deficit - Skin Skin exam: Present: dry, intact Internal Med - H&P Results - Labs CBC & Chem 7: 08/16/17 07:29 08/16/17 07:29
[2017-08-16 12:45] LABS: Troponin I < 0.03 ng/mL (< 0.04)
[2017-08-16] MEDS: traMADol 50 MG TABLET PO SCH ×2 (15:19→21:13)
[2017-08-16] MEDS: Topiramate 25 MG TABLET PO SCH ×2 (15:19→21:12)
[2017-08-16] MEDS: Pregabalin 75 MG CAPSULE PO SCH ×2 (15:19→21:12)
[2017-08-16] MEDS ORDERED: *HR* Dextrose 50 % in Water (Syg) 50 ML SYRINGE IVP PRN (15:21)
[2017-08-16] MEDS ORDERED: D5% in Water 1,000 ML IVC PRN (15:21)
[2017-08-16] MEDS ORDERED: Naloxone 0.4 MG/ML INJ IVP PRN (15:21)
[2017-08-16] MEDS ORDERED: Ondansetron 4 MG/2 ML VIAL IVP PRN (15:21)
[2017-08-16] MEDS ORDERED: OXYCODONE Oral CONC 10 MG/0.5 ML ORAL.SYG SL PRN (15:21)
[2017-08-16] MEDS ORDERED: Acetaminophen 325 MG TABLET PO PRN (15:21)
[2017-08-16] MEDS ORDERED: Dextrose Gel 15 GM/37.5 ML TUBE PO PRN ×2 (15:21)
[2017-08-16] MEDS: 0.9 % Sodium Chloride 1,000 ML IVC SCH (17:08)
[2017-08-16] MEDS: Pantoprazole 40 MG VIAL IVP SCH (17:13)
[2017-08-16] MEDS: Insulin LISPRO 300 UNITS/3 ML VIAL SQ SCH (18:03)
[2017-08-16] MEDS: Primidone 50 MG TABLET PO SCH (21:13)
[2017-08-17] MEDS: Insulin LISPRO 300 UNITS/3 ML VIAL SQ SCH ×4 (05:42→19:03)
[2017-08-17] MEDS: 0.9 % Sodium Chloride 1,000 ML IVC SCH (05:43)
[2017-08-17] MEDS: Pantoprazole 40 MG VIAL IVP SCH ×2 (05:44→19:04)
[2017-08-17 06:29] LABS: BUN/Creatinine Ratio 20 (6-26); Blood Urea Nitrogen 18 mg/dL (8-23); Calcium 8.5 mg/dL (8.6-10.3); Carbon Dioxide 25 mEq/L (23-29); Chloride 112 mEq/L (98-107); Glucose 143 mg/dL (70-105); Magnesium 1.8 mg/dL (1.6-2.6); Osmolality,Calculated 300 (280-300); Potassium 4.1 mEq/L (3.5-5.1); Sodium 143 mEq/L (136-145); eGFR For African Americans > 60 (> 60); eGFR For Non-African Americans > 60 (> 60)
[2017-08-17 08:10] LABS: Mean Corpuscular Volume 92.6 fL (83.0-100.0)
[2017-08-17] MEDS: Loratadine 10 MG TABLET PO SCH (08:10)
[2017-08-17] MEDS: Pregabalin 75 MG CAPSULE PO SCH ×3 (08:10→22:43)
[2017-08-17] MEDS: Topiramate 25 MG TABLET PO SCH ×2 (08:10→22:43)
[2017-08-17] MEDS: Aspirin 81 MG TAB.CHEW PO SCH (08:10)
[2017-08-17] MEDS: Metoprolol XL (24 HR) Succ 25 MG TAB.ER.24H PO SCH (08:11)
[2017-08-17] MEDS: traMADol 50 MG TABLET PO SCH ×3 (08:11→22:43)
[2017-08-17 08:12] LABS: Hematocrit 36.3 % (35.3-44.9); Hemoglobin 11.3 g/dL (11.5-15.4); Immature Platelets 5.3 % (1.1-6.1); Mean Corpuscular HGB Conc 31.1 g/dL (31.6-35.5); Mean Corpuscular Hemoglobin 28.8 pg (28.0-33.3); Mean Platelet Volume 11.1 fL (9.4-12.4); Platelet Count 109 K/mcL (140-400); Red Blood Count 3.92 M/mcL (3.82-4.97); Red Cell Distribution Width 14.4 % (11.5-14.5)
[2017-08-17] MEDS: Fluticasone Propionate Nasal 50 MCG/SPRAY BOTTLE NS SCH (08:12)
[2017-08-17] MEDS: OXYCODONE Oral CONC 10 MG/0.5 ML ORAL.SYG SL PRN (09:34)
[2017-08-17 10:37] LABS: Eosinophils # 0.3 K/mcL (0.0-0.6); Lymphocytes # 6.6 K/mcL (0.6-4.6); Monocytes # 0.3 K/mcL (0.0-1.3); Neutrophils # 5.5 K/mcL (1.6-8.9); Platelet Estimate Decreased (Normal); Smudge Cells Present (Not Present)
[2017-08-17 11:34] LABS: Hemoglobin A1C 7.2 %
--- NOTE | 2017-08-17 16:09 | Internal Med Progress Note ---
Date of Encounter: 08/17/17 Time of Encounter: 16:06 - Assessment and plan (1) Abdominal pain Current Visit: No Status: Acute Assessment and plan: recurrent intractable abdominal pain and gastritis with recent findings of erosive esophagitis on endoscopy. Obtain H. pylori stool testing and we will hold off on treatment until evaluated by GI. Cont NPO, IV fluids, IV PPI. GI consulted Qualifiers: Abdominal location: epigastric Qualified Code(s): R10.13 - Epigastric pain (2) Acute kidney injury superimposed on chronic kidney disease Current Visit: No Status: Acute Assessment and plan: Chart review shows baseline creatinine of 0.9 in June 2017. Currently 1.24. Likely secondary to dehydration due to nausea vomiting decreased oral intake. Renal function improved to baseline with IV fluids. Avoid nephrotoxins agents as possible. (3) CLL (chronic lymphocytic leukemia) Current Visit: No Status: Chronic Assessment and plan: per hx. Outpatient follow-up. (4) Gastroparesis Current Visit: No Status: Acute Assessment and plan: Endoscopy report suggests gastroparesis. Recommend more stringent outpatient diabetes control. Could try Reglan if symptoms do not improve. (5) Reflux esophagitis Current Visit: No Status: Acute Assessment and plan: per recent EGD. Plan as noted above (6) Type 2 diabetes mellitus Current Visit: No Status: Chronic Assessment and plan: per hx. Blood sugars controlled. Cont SSI. Monitor blood sugar and titrate PRN Qualifiers: Diabetes mellitus complication status: with kidney complications Diabetes mellitus complication detail: with chronic kidney disease Diabetes mellitus correction insulin use: with correction use Chronic kidney disease stage: stage 3 (moderate) Qualified Code(s): E11.22 - Type 2 diabetes mellitus with diabetic chronic kidney disease; N18.3 - Chronic kidney disease, stage 3 ( moderate); N18.3 - Chronic kidney disease, stage 3 (moderate); Z79.4 - terminal press operator (current) use of insulin; Z79.4 - terminal press operator (current) use of insulin; Z79.4 - terminal press operator (current) use of insulin; Z79.4 - terminal press operator (current) use of insulin (7) DVT prophylaxis Current Visit: No Status: Acute Assessment and plan: SCD - Subjective Interval history: Seen and examined at bedside. Patient is new to me, information obtained from chart review and patient report. She is still complaining of ABD pain but says overall improved. Has some nausea but no emesis today. - Constitutional Vitals: Temp Pulse Resp BP Pulse Ox 97.9 F 94 15 127/74 94 08/17/17 15:34 08/17/17 15:34 08/17/17 15:34 08/17/17 15:34 08/17/17 15:34 General appearance: Present: mild distress, A&O X 3, morbidly obese - Head Head exam: Present: atraumatic, normocephalic - Eye Eye exam: Present: PERRL, conjuntiva pink, sclera anicteric Pupils: Present: PERRL - Neck Neck exam general surgery: Present: supple, trachea midline. Absent: lymphadenopathy - Respiratory Respiratory exam: Present: CTAB. Absent: accessory muscle use, rales, rhonchi, wheezes - Cardiovascular Cardiovascular exam: Present: RRR, +S1, +S2. Absent: diastolic murmur, gallop, rubs, systolic murmur - GI/Abdominal GI/Abdominal exam: Present: normal bowel sounds, soft, no peritoneal signs. Absent: distended, tenderness - Extremities Exam Extremities exam: Present: warm, radial pulses palpable and symmetrical. Absent : calf tenderness, cyanotic, pedal edema - Neurological Exam Neurological exam: Present: CN II-XII intact, oriented X3, no focal deficits. Absent: pronater drift, facial droop, speech deficit - Skin Skin exam: Present: dry, intact Internal Medicine: Result - Labs CBC & Chem 7: 08/17/17 07:47 08/17/17 05:37 Labs: Short CBC 08/17/17 Range/Units 07:47 WBC 12.6 H (4.3-11.1) K/mcL Hgb 11.3 L (11.5-15.4) g/dL Hct 36.3 (35.3-44.9) % Plt Count 109 L (140-400) K/mcL Neutrophils # 5.5 (1.6-8.9) K/mcL BMP 08/17/17 05:37 Sodium 143 Potassium 4.1 Chloride 112 H Carbon Dioxide 25 BUN 18 Creatinine 0.88 Glucose 143 H Calcium 8.5 L Cardiac Enzymes 08/16/17 08/16/17 Range/Units 16:22 22:05 Troponin I < 0.03 < 0.03 (< 0.04) ng/mL Consult Discharge Plan - Plan Additional Instructions: Admitted as inpatient Referrals: Mariaelena Vasquze, [place] [Primary Care Provider] -
[2017-08-17] MEDS: *HR* FentaNYL (PF) 100 MCG/2 ML VIAL IVP SCH ×3 (16:48→18:37)
[2017-08-17] MEDS: Primidone 50 MG TABLET PO SCH (22:43)
[2017-08-18] MEDS: Insulin LISPRO 300 UNITS/3 ML VIAL SQ SCH ×4 (00:45→17:27)
[2017-08-18] MEDS: Pantoprazole 40 MG VIAL IVP SCH ×2 (05:53→17:27)
[2017-08-18] MEDS: OXYCODONE Oral CONC 10 MG/0.5 ML ORAL.SYG SL PRN (08:37)
[2017-08-18] MEDS: 0.9 % Sodium Chloride 1,000 ML IVC SCH ×2 (08:40→18:43)
[2017-08-18 09:50] LABS: Hematocrit 36.7 % (35.3-44.9); Hemoglobin 11.5 g/dL (11.5-15.4); Mean Corpuscular HGB Conc 31.3 g/dL (31.6-35.5); Mean Corpuscular Hemoglobin 28.8 pg (28.0-33.3); Mean Corpuscular Volume 91.8 fL (83.0-100.0); Platelet Count 113 K/mcL (140-400); Red Cell Distribution Width 14.1 % (11.5-14.5)
[2017-08-18 10:13] LABS: Alanine Aminotransferase 10 Units/L (7-52); Albumin 3.8 g/dL (3.5-5.7); Alkaline Phosphatase 93 Units/L (34-104); Aspartate Amino Transferase 10 Units/L (13-39); BUN/Creatinine Ratio 16 (6-26); Bilirubin,Total 0.5 mg/dL (0.3-1.0); Blood Urea Nitrogen 14 mg/dL (8-23); Calcium 9.1 mg/dL (8.6-10.3); Carbon Dioxide 26 mEq/L (23-29); Chloride 106 mEq/L (98-107); Globulin 1.9 g/dL (2.4-3.5); Glucose 192 mg/dL (70-105); Osmolality,Calculated 294 (280-300); Potassium 3.8 mEq/L (3.5-5.1); Sodium 139 mEq/L (136-145); Total Protein 5.7 g/dL (6.4-8.9); eGFR For African Americans > 60 (> 60); eGFR For Non-African Americans > 60 (> 60)
[2017-08-18] MEDS: Metoprolol XL (24 HR) Succ 25 MG TAB.ER.24H PO SCH (10:42)
[2017-08-18] MEDS: Aspirin 81 MG TAB.CHEW PO SCH (10:42)
[2017-08-18] MEDS: Topiramate 25 MG TABLET PO SCH ×2 (10:42→21:54)
[2017-08-18] MEDS: Loratadine 10 MG TABLET PO SCH (10:42)
[2017-08-18] MEDS: traMADol 50 MG TABLET PO SCH ×3 (10:42→21:53)
[2017-08-18] MEDS: Pregabalin 75 MG CAPSULE PO SCH ×3 (10:42→21:53)
[2017-08-18] MEDS: Fluticasone Propionate Nasal 50 MCG/SPRAY BOTTLE NS SCH (10:44)
--- NOTE | 2017-08-18 11:47 | Internal Med Progress Note ---
Date of Encounter: 08/18/17 Time of Encounter: 11:28 - Assessment and plan (1) Abdominal pain Current Visit: No Status: Acute Assessment and plan: presented with recurrent, intractable abdominal pain. Hospitalized 06/2017 for similar symptoms with no identifiable source found. 02/2017 EGD showed gastritis /esophagitis and gastroparesis. ABD CT with no evidence of bowel obstruction to account for abdominal pain and vomiting. Appears uncomfortable on exam. Cont NPO, IV PPI, pain control. GI consulted. H. pylori stool test pending. Qualifiers: Abdominal location: epigastric Qualified Code(s): R10.13 - Epigastric pain (2) Acute kidney injury superimposed on chronic kidney disease Current Visit: No Status: Acute Assessment and plan: Cr 1.2 on arrival; baseline normal. Likely secondary to dehydration due to nausea vomiting decreased oral intake. Renal function improved to baseline with IV fluids. Avoid nephrotoxic agents as possible. (3) Gastroparesis Current Visit: No Status: Acute Assessment and plan: 02/2017 EGD showed diffuse edema, retained food in stomach. Suspect gastroparesis given hx of DM2. Has been on Reglan in the past. Consider resuming once evaluated by GI (4) Reflux esophagitis Current Visit: No Status: Acute Assessment and plan: 02/2017 LA grade B reflux esophagitis. Cont IV PPI, Carafate (5) CLL (chronic lymphocytic leukemia) Current Visit: No Status: Chronic Assessment and plan: per hx. Outpatient follow-up. (6) Type 2 diabetes mellitus Current Visit: No Status: Chronic Assessment and plan: per hx. Blood sugars controlled. Cont SSI. 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 Pain is localized to middle abdomen radiates across entire abdomen. Pain medicine does not help much. Nothing makes worse. Reports an episode of loose stool yesterday. None today. Discussed with GI today and they are aware of consult. - Constitutional Vitals: Temp Pulse Resp BP Pulse Ox 97.9 F 73 15 128/75 95 08/18/17 05:33 08/18/17 05:33 08/18/17 05:33 08/18/17 05:33 08/18/17 05:33 General appearance: Present: mild distress, A&O X 3, morbidly obese - Head Head exam: Present: atraumatic, normocephalic - Eye Eye exam: Present: PERRL, conjuntiva pink, sclera anicteric Pupils: Present: PERRL - Neck Neck exam general surgery: Present: supple, trachea midline. Absent: lymphadenopathy - Respiratory Respiratory exam: Present: CTAB. Absent: accessory muscle use, rales, rhonchi, wheezes - Cardiovascular Cardiovascular exam: Present: RRR, +S1, +S2. Absent: diastolic murmur, gallop, rubs, systolic murmur - GI/Abdominal GI/Abdominal exam: Present: normal bowel sounds, soft, no peritoneal signs. Absent: distended, tenderness - Extremities Exam Extremities exam: Present: warm, radial pulses palpable and symmetrical. Absent : calf tenderness, cyanotic, pedal edema - Neurological Exam Neurological exam: Present: CN II-XII intact, oriented X3, no focal deficits. Absent: pronater drift, facial droop, speech deficit - Skin Skin exam: Present: dry, intact Internal Medicine: Result - Labs CBC & Chem 7: 08/18/17 09:37 08/18/17 09:37 Labs: Short CBC 08/18/17 Range/Units 09:37 WBC 13.8 H (4.3-11.1) K/mcL Hgb 11.5 (11.5-15.4) g/dL Hct 36.7 (35.3-44.9) % Plt Count 113 L (140-400) K/mcL BMP 08/18/17 09:37 Sodium 139 Potassium 3.8 Chloride 106 Carbon Dioxide 26 BUN 14 Creatinine 0.89 Glucose 192 H Calcium 9.1 Liver Function 08/18/17 Range/Units 09:37 Total Bilirubin 0.5 (0.3-1.0) mg/dL AST 10 L (13-39) Units/L ALT 10 (7-52) Units/L Alkaline Phosphatase 93 (34-104) Units/L Albumin 3.8 (3.5-5.7) g/dL Consult Discharge Plan - Plan Additional Instructions: Admitted as inpatient Referrals: Mariaelena Vasquez, [employer] [Primary Care Provider] -
[2017-08-18] MEDS: *HR* FentaNYL (PF) 100 MCG/2 ML VIAL IVP PRN ×3 (12:20→21:59)
--- NOTE | 2017-08-18 14:58 | Gastroenterology Consult Note ---
<Sony Barber - Last Filed: 08/18/17 15:01> Date of Encounter: 08/18/17 Time of Encounter: 11:55 - Assessment and plan (1) Abdominal pain Status: Resolved Assessment and plan: Continue PPI and start Pepcid. Last EGD 03/13/17 with LA grade B esophagitis, chronic gastritis, possible gastroparesis. Pt was scheduled to have colonoscopy as outpatient, but she cancelled the procedure. Recommend colonoscopy as outpatient. Qualifiers: Abdominal location: left upper quadrant Qualified Code(s): R10.12 - Left upper quadrant pain (2) Gastroparesis Status: Acute Assessment and plan: Small frequent meals Avoid fried and fatty foods Chew food well Blenderize food when symptomatic Reduce or avoid high-fiber foods and medications Avoid raw vegetables If you have diabetes, keep blood sugars well controlled Avoid medications that can delay gastric emptying such as narcotics, high-fiber medications, and high-fiber foods (3) Reflux esophagitis Status: Acute Assessment and plan: Continue PPI. - Time Spent With Patient Total time spent is greater than 50% in coordination of care (as documented) at patient's floor/unit and/or counseling patient: GI History of Present Illness - Data of Consult Patient: known to practice within the last 3 years Consult date: 08/18/17 Requesting Physician: Debbie Lamar CNP - Consult Narrative Reason for consult: Abdominal pain History of present illness: Ms. Vargas is a 67 year old female with PMHx of CLL, CAD, DM, HTN who presented for evaluation of epigastric abdominal pain. She was admitted in June for similar symptoms and treated for acute gastritis. Her epigastric abdominal pain started the evening prior to admission and worsened overnight that was associated with multiple episodes of nonbloody nonbilious vomiting. We were consulted to evaluate her abdominal pain. CT A/P shows bilateral pelvic sidewall, common iliac, gastrohepatic, paraesophageal and retroperitoneal adenopathy with associated splenomegaly, concerning for lymphoma versus metastatic disease. No evidence of bowel obstruction. Procedures: EGD 03/13/2017 Dr. Salcedo: LA grade B esophagitis, chronic gastritis , possible gastroparesis. NSAIDs: ASA Anticoagulation: None Past Med Surg Social Fam HX - Past Medical History Medical history: cancer, coronary artery disease, diabetes, hypertension, renal disease, other Psychiatric history: no psych history - Past Surgical History Surgical History: appendectomy, cholecystectomy, THERESE/BSO, other - Social History Smoking Status: Never smoker Smokeless Tobacco Status: No Alcohol use: none Drug use: none - Family History Mother Family Member Ethnicity: Non- Living Status: Hx Family Cardiac Disorders: No Hx Family Respiratory Disorders: No Hx Family Cancer: No Hx Family GI Disorders: No Hx Family Endocrine Disorder: Yes (DM) Hx Family Neuromuscular Disorders: No Hx Family Neurologic Disorders: No Hx Family HEENT Disorders: No Hx Family Autoimmune Disorders: No Father Adopted: No Family Member Ethnicity: Non- Living Status: Hx Family Cardiac Disorders: Yes (VT) Hx Family Respiratory Disorders: No Hx Family Cancer: No Hx Family GI Disorders: No Hx Family Endocrine Disorder: No Hx Family Neuromuscular Disorders: No Hx Family Neurologic Disorders: No Hx Family HEENT Disorders: No Hx Family Autoimmune Disorders: No - Gastrointestinal Gastrointestinal: Present: as per HPI - Constitutional Constitutional: as per HPI - EENT Eyes: as per HPI Ears: Present: as per HPI Nose, mouth and throat: Present: as per HPI - Cardiovascular Cardiovascular ROS: Present: as per HPI - Respiratory Respiratory IM: Present: as per HPI - Genitourinary Genitourinary: Absent: change in color, Urinary frequency - Neurological ROS Neurological GI: Present: as per HPI - Hematologic/Lymphatic Hematologic/Lymphatic pediatric: Present: as per HPI - Musculoskeletal Musculoskeletal ROS GI: Present: as per HPI - Integumentary Integumentary GI: Present: as per HPI - Psychiatric ROS Psychiatric GI: Present: as per HPI - Endocrine Endocrine IM: Present: as per HPI - Constitutional Vitals: Temp Pulse Resp BP Pulse Ox 98.0 F 79 16 157/86 94 08/18/17 12:14 08/18/17 12:14 08/18/17 12:14 08/18/17 12:14 08/18/17 12:14 General appearance: Present: cooperative, A&O X 3, no acute distress, answers questions appropriately - Head Head exam: Present: atraumatic, normocephalic - Eye Eye exam: Present: normal appearance, sclera anicteric - ENT ENT exam: Present: mucous membranes dry - Neck Neck exam general surgery: Present: normal inspection, trachea midline - Respiratory Respiratory exam: Present: CTAB. Absent: rales, rhonchi - Cardiovascular Cardiovascular exam: Present: RRR, +S1, +S2 - GI/Abdominal GI/Abdominal exam: Present: normal bowel sounds, soft, tenderness (generalized) , no peritoneal signs. Absent: distended, firm, guarding - Rectal Rectal exam: Present: deferred - Extremities Exam Extremities exam: Present: warm - Neurological Exam Neurological exam: Present: no focal deficits - Psychiatric Psychiatric exam: Present: normal affect, normal mood - Skin Skin exam: Present: dry, intact, normal color, warm Results - Labs CBC & Chem 7: 08/18/17 09:37 08/18/17 09:37 Labs: Last Result Calcium 9.1 mg/dL (8.6-10.3) 08/18/17 09:37 Troponin I < 0.03 ng/mL (< 0.04) 08/16/17 22:05 Entire Visit Hgb 11.5 g/dL (11.5-15.4) 08/18/17 09:37 Hct 36.7 % (35.3-44.9) 08/18/17 09:37 Total Bilirubin 0.5 mg/dL (0.3-1.0) 08/18/17 09:37 AST 10 Units/L (13-39) L 08/18/17 09:37 ALT 10 Units/L (7-52) 08/18/17 09:37 Amylase 36 Units/L (29-103) 08/16/17 07:29 Lipase 41 Units/L (11-82) 08/16/17 07:29 Consult Discharge Plan - Plan Instructions: Metoclopramide (By mouth), Gastritis (DC), Diabetic gastroparesis (DC), Urinary Tract Infection in Women (DC) Additional Instructions: Admitted as inpatient Referrals: Cyndi Estes MD [Partnered Physician] - 08/26/17 1:40 am Mariaelena Vasquez CNP [Primary Care Provider] - 08/26/17 10:00 am () Romero Peñaloza MD [Partnered Physician] - (Please call for follow-up appointment within 2 weeks) Prescriptions: Metoclopramide [Reglan] 5 mg PO TIDAC #60 tablet <Rodo Salcedo - Last Filed: 08/23/17 15:09> Date of Encounter: 08/18/17 - Time Spent With Patient Total time spent is greater than 50% in coordination of care (as documented) at patient's floor/unit and/or counseling patient: GI History of Present Illness - Data of Consult Requesting Physician: Debbie Lamar CNP - Consult Narrative History of present illness: Ms. Vargas is a 67 year old female - Constitutional Vitals: Temp Pulse Resp BP Pulse Ox 98.3 F 80 16 147/83 93 08/21/17 11:00 08/21/17 11:00 08/21/17 11:00 08/21/17 11:00 08/21/17 11:00 Results - Labs CBC & Chem 7: 08/21/17 04:00 08/21/17 04:00 Labs: Last Result Calcium 8.5 mg/dL (8.6-10.3) L 08/21/17 04:00 Troponin I < 0.03 ng/mL (< 0.04) 08/16/17 22:05 Entire Visit Hgb 10.0 g/dL (11.5-15.4) L 08/21/17 04:00 Hct 31.2 % (35.3-44.9) L 08/21/17 04:00 Total Bilirubin 0.4 mg/dL (0.3-1.0) 08/19/17 04:42 AST 10 Units/L (13-39) L 08/19/17 04:42 ALT 8 Units/L (7-52) 08/19/17 04:42 Amylase 36 Units/L (29-103) 08/16/17 07:29 Lipase 41 Units/L (11-82) 08/16/17 07:29 - Attending Attestation I have personally performed a face to face evaluation on this patient. I have reviewed and agree with the care plan. History and Exam by me shows:
[2017-08-18] MEDS: *HR* FentaNYL (PF) 100 MCG/2 ML VIAL IVP SCH (19:28)
--- NOTE | 2017-08-18 19:52 | Electrocardiograph Report ---
[place] [id number] Test Date: 2017-08-16 Pat Name: Carmen Vargas Department: [id number] Room: 3A35 Gender: F Tool Design Drafter: : 1950 Requested By: Galdino Null Order Number: [id number] Reading MD: Rosa Maria Cohn Measurements Intervals [place] Rate: 85 P: 19 AK: 128 QRS: 10 QRSD: 102 T: 17 QT: 361 QTc: 403 Interpretive Statements SINUS RHYTHM LOW QRS VOLTAGE IN PRECORDIAL LEADS [QRS DEFLECTION < 1.0 mV IN CHEST LEADS] Electronically Signed On 08-18-2017 19:51:28 EST by Rosa Maria Cohn
[2017-08-18] MEDS: Primidone 50 MG TABLET PO SCH (21:53)
[2017-08-19] MEDS: Insulin LISPRO 300 UNITS/3 ML VIAL SQ SCH ×4 (00:17→18:17)
[2017-08-19] MEDS: 0.9 % Sodium Chloride 1,000 ML IVC SCH ×2 (04:40→15:54)
[2017-08-19 05:29] LABS: Hematocrit 34.4 % (35.3-44.9); Hemoglobin 10.8 g/dL (11.5-15.4); Mean Corpuscular HGB Conc 31.4 g/dL (31.6-35.5); Mean Corpuscular Hemoglobin 28.5 pg (28.0-33.3); Mean Corpuscular Volume 90.8 fL (83.0-100.0); Mean Platelet Volume 10.8 fL (9.4-12.4); Platelet Count 116 K/mcL (140-400); Red Blood Count 3.79 M/mcL (3.82-4.97); Red Cell Distribution Width 13.7 % (11.5-14.5)
[2017-08-19 05:50] LABS: Alanine Aminotransferase 8 Units/L (7-52); Albumin 3.5 g/dL (3.5-5.7); Albumin/Globulin Ratio 1.8 (1.1-2.2); Alkaline Phosphatase 83 Units/L (34-104); Aspartate Amino Transferase 10 Units/L (13-39); BUN/Creatinine Ratio 16 (6-26); Bilirubin,Total 0.4 mg/dL (0.3-1.0); Blood Urea Nitrogen 12 mg/dL (8-23); Calcium 8.7 mg/dL (8.6-10.3); Carbon Dioxide 24 mEq/L (23-29); Chloride 107 mEq/L (98-107); Globulin 1.9 g/dL (2.4-3.5); Glucose 162 mg/dL (70-105); Osmolality,Calculated 293 (280-300); Potassium 3.6 mEq/L (3.5-5.1); Sodium 140 mEq/L (136-145); Total Protein 5.4 g/dL (6.4-8.9); eGFR For African Americans > 60 (> 60); eGFR For Non-African Americans > 60 (> 60)
[2017-08-19] MEDS: Pantoprazole 40 MG VIAL IVP SCH ×2 (06:07→18:13)
--- NOTE | 2017-08-19 09:02 | Internal Med Progress Note ---
Date of Encounter: 08/19/17 Time of Encounter: 08:59 - Assessment and plan (1) Abdominal pain Current Visit: No Status: Acute Assessment and plan: presented with recurrent, intractable abdominal pain. Hospitalized 06/2017 for similar symptoms with no identifiable source found. 02/2017 EGD showed gastritis /esophagitis and gastroparesis. ABD CT with no evidence of bowel obstruction to account for abdominal pain and vomiting. Cont to appears uncomfortable on exam; discussed with Dr. Salcedo and will plan on inpatient C-scope since she is continuing to have persistent abdominal pain. Clear liquid diet now if she tolerates. IV PPI, pain control. GI following. H. pylori stool test pending. Qualifiers: Abdominal location: epigastric Qualified Code(s): R10.13 - Epigastric pain (2) Acute kidney injury superimposed on chronic kidney disease Current Visit: No Status: Acute Assessment and plan: Cr 1.2 on arrival; baseline normal. Likely secondary to dehydration due to nausea vomiting decreased oral intake. Renal function improved to baseline with IV fluids. Avoid nephrotoxic agents as possible. Intermittently monitor renal function (3) Gastroparesis Current Visit: No Status: Acute Assessment and plan: 02/2017 EGD showed diffuse edema, retained food in stomach. Suspect gastroparesis given hx of DM2. Has been on Reglan in the past. Will discuss resuming with GI (4) Reflux esophagitis Current Visit: No Status: Acute Assessment and plan: 02/2017 LA grade B reflux esophagitis. Cont IV PPI, Carafate (5) CLL (chronic lymphocytic leukemia) Current Visit: No Status: Chronic Assessment and plan: per hx. Evaluated by Oncology 11/2016 who noted stage 1 CLL and no treatment indicated at that time. ABD CT with bilateral pelvic sidewall, common iliac, gastrohepatic, paraesophageal and retroperitoneal adenopathy with associated splenomegaly, concerning for lymphoma versus metastatic disease. Will discuss with Oncology (6) Type 2 diabetes mellitus Current Visit: No Status: Chronic Assessment and plan: per hx. Blood sugars controlled. Cont SSI. Monitor blood sugar and titrate PRN Qualifiers: Diabetes mellitus complication status: with kidney complications Diabetes mellitus complication detail: with chronic kidney disease Diabetes mellitus prison insulin use: with hatchery helper use Chronic kidney disease stage: stage 3 (moderate) Qualified Code(s): E11.22 - Type 2 diabetes mellitus with diabetic chronic kidney disease; N18.3 - Chronic kidney disease, stage 3 ( moderate); N18.3 - Chronic kidney disease, stage 3 (moderate); Z79.4 - skilled nursing (current) use of insulin; Z79.4 - skilled nursing (current) use of insulin; Z79.4 - skilled nursing (current) use of insulin; Z79.4 - spa associate (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 Hgb 10.8, PLTs 116. No active bleeding. Counts appear stable. Cont to monitor Qualifiers: Anemia type: other cause Other causes of anemia: chronic disease, neoplastic Qualified Code(s): D63.0 - Anemia in neoplastic disease (8) DVT prophylaxis Current Visit: No Status: Acute Assessment and plan: SCD - Subjective Interval history: Seen and examined at bedside. He is still complaining of diffuse abdominal pain. Says she received pain medicine shortly before exam and is somewhat better. Describes pain as a constant ache that is sharp at times. Radiates to entire abdomen. Makes worse and pain medicine helps relieve. With a little nauseated earlier. No emesis or loose stool. Discussed case with GI and will place order for bowel prep this evening and plan on colonoscopy tomorrow. - Constitutional Vitals: Temp Pulse Resp BP Pulse Ox 98.3 F 76 16 132/76 93 08/19/17 07:23 08/19/17 07:23 08/19/17 07:23 08/19/17 07:23 08/19/17 07:23 General appearance: Present: mild distress, A&O X 3, morbidly obese - Head Head exam: Present: atraumatic, normocephalic - Eye Eye exam: Present: PERRL, conjuntiva pink, sclera anicteric Pupils: Present: PERRL - Neck Neck exam general surgery: Present: supple, trachea midline. Absent: lymphadenopathy - Respiratory Respiratory exam: Present: CTAB. Absent: accessory muscle use, rales, rhonchi, wheezes - Cardiovascular Cardiovascular exam: Present: RRR, +S1, +S2. Absent: diastolic murmur, gallop, rubs, systolic murmur - GI/Abdominal GI/Abdominal exam: Present: normal bowel sounds, soft, no peritoneal signs. Absent: distended, tenderness - Extremities Exam Extremities exam: Present: warm, radial pulses palpable and symmetrical. Absent : calf tenderness, cyanotic, pedal edema - Neurological Exam Neurological exam: Present: CN II-XII intact, oriented X3, no focal deficits. Absent: pronater drift, facial droop, speech deficit - Skin Skin exam: Present: dry, intact Internal Medicine: Result - Labs CBC & Chem 7: 08/19/17 04:42 08/19/17 04:42 Labs: Short CBC 08/19/17 Range/Units 04:42 WBC 12.0 H (4.3-11.1) K/mcL Hgb 10.8 L (11.5-15.4) g/dL Hct 34.4 L (35.3-44.9) % Plt Count 116 L (140-400) K/mcL BMP 08/19/17 04:42 Sodium 140 Potassium 3.6 Chloride 107 Carbon Dioxide 24 BUN 12 Creatinine 0.73 Glucose 162 H Calcium 8.7 Liver Function 08/19/17 Range/Units 04:42 Total Bilirubin 0.4 (0.3-1.0) mg/dL AST 10 L (13-39) Units/L ALT 8 (7-52) Units/L Alkaline Phosphatase 83 (34-104) Units/L Albumin 3.5 (3.5-5.7) g/dL Consult Discharge Plan - Plan Additional Instructions: Admitted as inpatient Referrals: Mariaelena Vasquez, [place] [Primary Care Provider] -
[2017-08-19] MEDS: traMADol 50 MG TABLET PO SCH ×3 (09:09→21:10)
[2017-08-19] MEDS: Topiramate 25 MG TABLET PO SCH ×2 (09:09→21:11)
[2017-08-19] MEDS: Aspirin 81 MG TAB.CHEW PO SCH (09:09)
[2017-08-19] MEDS: Metoprolol XL (24 HR) Succ 25 MG TAB.ER.24H PO SCH (09:09)
[2017-08-19] MEDS: Fluticasone Propionate Nasal 50 MCG/SPRAY BOTTLE NS SCH (09:09)
[2017-08-19] MEDS: Pregabalin 75 MG CAPSULE PO SCH ×3 (09:09→21:10)
[2017-08-19] MEDS: Loratadine 10 MG TABLET PO SCH (09:09)
[2017-08-19] MEDS ORDERED: Polyethylene Glycol 3350 255 GM POWDER PO ONE (18:00)
[2017-08-19] MEDS: Primidone 50 MG TABLET PO SCH (21:11)
[2017-08-20] MEDS: Insulin LISPRO 300 UNITS/3 ML VIAL SQ SCH ×4 (00:53→19:47)
[2017-08-20] MEDS: 0.9 % Sodium Chloride 1,000 ML IVC SCH ×2 (02:18→13:07)
[2017-08-20] MEDS: Pantoprazole 40 MG VIAL IVP SCH ×2 (05:29→19:48)
[2017-08-20] MEDS: Topiramate 25 MG TABLET PO SCH ×2 (09:05→20:23)
[2017-08-20] MEDS: Loratadine 10 MG TABLET PO SCH (09:05)
[2017-08-20] MEDS: Aspirin 81 MG TAB.CHEW PO SCH (09:05)
[2017-08-20] MEDS: traMADol 50 MG TABLET PO SCH ×3 (09:05→20:22)
[2017-08-20] MEDS: Pregabalin 75 MG CAPSULE PO SCH ×3 (09:05→20:22)
[2017-08-20] MEDS: Metoprolol XL (24 HR) Succ 25 MG TAB.ER.24H PO SCH (09:05)
[2017-08-20] MEDS: Fluticasone Propionate Nasal 50 MCG/SPRAY BOTTLE NS SCH (09:06)
--- NOTE | 2017-08-20 11:42 | Internal Med Progress Note ---
Date of Encounter: 08/20/17 Time of Encounter: 11:39 - Assessment and plan (1) Abdominal pain Current Visit: No Status: Acute Assessment and plan: presented with recurrent, intractable abdominal pain. Hospitalized 06/2017 for similar symptoms with no identifiable source found. 02/2017 EGD showed gastritis /esophagitis and gastroparesis. ABD CT with no evidence of bowel obstruction to account for abdominal pain and vomiting. Cont to appears uncomfortable on exam; discussed with Dr. Salcedo on 08/19 and will plan on inpatient C-scope since she is continuing to have persistent abdominal pain. NPO, IV PPI, pain control. GI following. H. pylori stool test pending. Qualifiers: Abdominal location: epigastric Qualified Code(s): R10.13 - Epigastric pain (2) Acute kidney injury superimposed on chronic kidney disease Current Visit: No Status: Acute Assessment and plan: Cr 1.2 on arrival; baseline normal. Likely secondary to dehydration due to nausea vomiting decreased oral intake. Renal function improved to baseline with IV fluids. Avoid nephrotoxic agents as possible. Intermittently monitor renal function (3) Gastroparesis Current Visit: No Status: Acute Assessment and plan: 02/2017 EGD showed diffuse edema, retained food in stomach. Suspect gastroparesis given hx of DM2. Has been on Reglan in the past. Will discuss resuming with GI (4) Reflux esophagitis Current Visit: No Status: Acute Assessment and plan: 02/2017 LA grade B reflux esophagitis. Cont IV PPI, Carafate (5) CLL (chronic lymphocytic leukemia) Current Visit: No Status: Chronic Assessment and plan: per hx. Evaluated by Oncology 11/2016 who noted stage 1 CLL and no treatment indicated at that time. ABD CT with bilateral pelvic sidewall, common iliac, gastrohepatic, paraesophageal and retroperitoneal adenopathy with associated splenomegaly, concerning for lymphoma versus metastatic disease. Will discuss with Oncology (6) Type 2 diabetes mellitus Current Visit: No Status: Chronic Assessment and plan: per hx. Blood sugars controlled. Cont SSI. 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 Hgb 10.8, PLTs 116. No active bleeding. Counts appear stable. Cont to monitor Qualifiers: Anemia type: other cause Other causes of anemia: chronic disease, neoplastic Qualified Code(s): D63.0 - Anemia in neoplastic disease (8) DVT prophylaxis Current Visit: No Status: Acute Assessment and plan: SCD - Subjective Interval history: Seen and examined at bedside. Still with abdominal pain but overall improved. No nausea or vomiting. Had loose stool secondary to bowel prep. She is c/o left arm edema. - Constitutional Vitals: Temp Pulse Resp BP Pulse Ox 98.4 F 72 16 128/77 94 08/20/17 10:29 08/20/17 10:29 08/20/17 10:29 08/20/17 10:29 08/20/17 10:29 General appearance: Present: mild distress, A&O X 3, morbidly obese - Head Head exam: Present: atraumatic, normocephalic - Eye Eye exam: Present: PERRL, conjuntiva pink, sclera anicteric Pupils: Present: PERRL - Neck Neck exam general surgery: Present: supple, trachea midline. Absent: lymphadenopathy - Respiratory Respiratory exam: Present: CTAB. Absent: accessory muscle use, rales, rhonchi, wheezes - Cardiovascular Cardiovascular exam: Present: RRR, +S1, +S2. Absent: diastolic murmur, gallop, rubs, systolic murmur - GI/Abdominal GI/Abdominal exam: Present: normal bowel sounds, soft, no peritoneal signs. Absent: distended, tenderness - Extremities Exam Extremities exam: Present: pedal edema, warm, radial pulses palpable and symmetrical. Absent: calf tenderness, cyanotic - Neurological Exam Neurological exam: Present: CN II-XII intact, oriented X3, no focal deficits. Absent: pronater drift, facial droop, speech deficit - Skin Skin exam: Present: dry, intact Internal Medicine: Result - Labs CBC & Chem 7: 08/19/17 04:42 08/19/17 04:42 - VTE Documentation of Mechanical Device: Intermittent pneumatic compression device Consult Discharge Plan - Plan Additional Instructions: Admitted as inpatient Referrals: Mariaelena Vasquez CNP [Primary Care Provider] -
[2017-08-20] MEDS ORDERED: *HR* FentaNYL (PF) 100 MCG/2 ML VIAL ONE (18:29)
[2017-08-20] MEDS ORDERED: *HR* Midazolam HCl 5 MG/5 ML VIAL IVP ONE ×2 (18:29→18:30)
[2017-08-20] MEDS ORDERED: *HR* FentaNYL (PF) 100 MCG/2 ML VIAL IVP ONE (18:30)
[2017-08-20] MEDS ORDERED: Simethicone 40 MG/0.6 ML MLS IR ONE (18:30)
--- NOTE | 2017-08-20 18:30 | Pre-Sedation Evaluation ---
Pre-sedation evaluation - Pre-sedation checklist Date of procedure: 08/20/17 Recent Vitals: Last Vital Signs Temp 98.4 F 08/20/17 15:45 Pulse 69 08/20/17 15:45 Resp 16 08/20/17 15:45 BP 150/79 08/20/17 15:45 Pulse Ox 95 08/20/17 15:45 H&P (including ROS) documented in medical record: Yes Previous reaction to sedatives/anesthetics: No Dietary Status: NPO after Midnight Dentition: No loose teeth or bridges ASA Classification *see protocol: CLASS III-Severe systemic disease Plan of Care: Pt appropriate candidate for procedure/moderate/conscious sedation , Risks/benefits of procedure/sedation discussed w/ patient/family
[2017-08-20] MEDS: Primidone 50 MG TABLET PO SCH (20:22)
[2017-08-20] MEDS ORDERED: Insulin LISPRO 300 UNITS/3 ML VIAL SQ SCH (21:00)
[2017-08-21] MEDS: 0.9 % Sodium Chloride 1,000 ML IVC SCH (00:51)
[2017-08-21 05:22] LABS: Hematocrit 31.2 % (35.3-44.9); Mean Corpuscular HGB Conc 32.1 g/dL (31.6-35.5); Mean Corpuscular Hemoglobin 29.1 pg (28.0-33.3); Mean Corpuscular Volume 90.7 fL (83.0-100.0); Mean Platelet Volume 10.7 fL (9.4-12.4); Platelet Count 100 K/mcL (140-400); Red Blood Count 3.44 M/mcL (3.82-4.97); Red Cell Distribution Width 13.8 % (11.5-14.5)
[2017-08-21 05:38] LABS: BUN/Creatinine Ratio 11 (6-26); Blood Urea Nitrogen 8 mg/dL (8-23); Calcium 8.5 mg/dL (8.6-10.3); Carbon Dioxide 24 mEq/L (23-29); Chloride 109 mEq/L (98-107); Glucose 223 mg/dL (70-105); Osmolality,Calculated 295 (280-300); Potassium 3.3 mEq/L (3.5-5.1); Sodium 140 mEq/L (136-145); eGFR For African Americans > 60 (> 60); eGFR For Non-African Americans > 60 (> 60)
[2017-08-21] MEDS: Pantoprazole 40 MG VIAL IVP SCH (07:37)
[2017-08-21] MEDS: Pregabalin 75 MG CAPSULE PO SCH (08:41)
[2017-08-21] MEDS: traMADol 50 MG TABLET PO SCH (08:41)
[2017-08-21] MEDS: Loratadine 10 MG TABLET PO SCH (08:42)
[2017-08-21] MEDS: Topiramate 25 MG TABLET PO SCH (08:42)
[2017-08-21] MEDS: Aspirin 81 MG TAB.CHEW PO SCH (08:42)
[2017-08-21] MEDS: Fluticasone Propionate Nasal 50 MCG/SPRAY BOTTLE NS SCH (08:43)
[2017-08-21] MEDS: Insulin LISPRO 300 UNITS/3 ML VIAL SQ SCH ×2 (08:44→12:56)
[2017-08-21] MEDS: Metoprolol XL (24 HR) Succ 25 MG TAB.ER.24H PO SCH (09:02)
--- NOTE | 2017-08-21 09:33 | Discharge Summary ---
Orders not resulted at time of discharge: Pending orders 08/20/17 19:05 Surgical Pathology [PTH] Routine Date of Encounter: 08/21/17 Time of Encounter: 09:32 - Discharge Diagnosis (1) Abdominal pain Priority: Primary Status: Acute Comments: presented with recurrent, intractable abdominal pain. Hospitalized 06/2017 for similar symptoms with no identifiable source found. ABD CT with no evidence of bowel obstruction to account for abdominal pain and vomiting. 02/2017 EGD showed gastritis/esophagitis and gastroparesis. 08/20/2017 c-scope with normal colon, no anal or rectal abnormalities (2 non-bleeding polyps removed; biopsies pending. Suspect abdominal pain secondary to known gastroparesis, esophagitis and gastritis. She does have history of CLL and abdominal CT concerning for possible progression of disease; this could be contributing to pain as well. Continue treating underlying causes as noted below. Recommend follow-up with PCP and GI within 2 weeks Qualifiers: Abdominal location: epigastric Qualified Code(s): R10.13 - Epigastric pain (2) Gastroparesis Priority: Primary Status: Acute Comments: 02/2017 EGD showed diffuse edema, retained food in stomach. GI noted likely gastroparesis secondary to diabetes at that time. SPECT this is contributing to her persistent abdominal pain. Has been on Reglan in the past with improvement in symptoms. Discussed with GI on 08/21/17 and we will discharge home on low-dose Reglan with GI follow-up. Educated on dietary compliance/ restrictions. (3) Reflux esophagitis Priority: Primary Status: Acute Comments: 02/2017 EGD with LA grade B reflux esophagitis. Cont PPI, Carafate (4) Acute kidney injury superimposed on chronic kidney disease Priority: Primary Status: Acute Comments: Cr 1.2 on arrival; baseline normal. Likely secondary to dehydration due to nausea vomiting decreased oral intake. Renal function improved to baseline with IV fluids. (5) CLL (chronic lymphocytic leukemia) Priority: Secondary Status: Chronic Comments: per hx. Evaluated by Oncology 11/2016 who noted stage 1 CLL and no treatment indicated at that time. ABD CT with bilateral pelvic sidewall, common iliac, gastrohepatic, paraesophageal and retroperitoneal adenopathy with associated splenomegaly, concerning for lymphoma versus metastatic disease. When compared to previous CTs enlarged lymph nodes are not significantly enlarged from previous exams. Discussed with with Oncology [facility]AN[facility]ER and no need for acute oncology interventions this time however patient will be scheduled for outpatient oncology follow-up on 08/26/17. (6) Type 2 diabetes mellitus Priority: Secondary Status: Chronic Comments: per hx. Hgb A1c 7.2%. Continue home diabetes medication regimen. Educated on importance of tight glycemic control Qualifiers: Diabetes mellitus fci insulin use: with fci use Diabetes mellitus complication status: with kidney complications Diabetes mellitus complication detail: with chronic kidney disease Chronic kidney disease stage : stage 3 (moderate) Qualified Code(s): E11.22 - Type 2 diabetes mellitus with diabetic chronic kidney disease; N18.3 - Chronic kidney disease, stage 3 ( moderate); N18.3 - Chronic kidney disease, stage 3 (moderate); Z79.4 - [facility] (current) use of insulin; Z79.4 - terminal operations supervisor (current) use of insulin; Z79.4 - [facility] (current) use of insulin; Z79.4 - terminal operations supervisor (current) use of insulin (7) Anemia Priority: Secondary Status: Acute Comments: per hx. HAs known iron deficiency anemia. Hgb 10 at time of discharge. No active bleeding. C scope without evidence of bleeding as noted above. Continue home iron supplementation. Follow-up with PCP and oncology within 1-2 weeks. Qualifiers: Anemia type: other cause Other causes of anemia: chronic disease, neoplastic Qualified Code(s): D63.0 - Anemia in neoplastic disease Hospital course: Ms. Vargas is a 67 year old female with PMH diabetes, iron deficiency anemia and CLL and presented to [facility] on 08/16/2017 with complaints of abdominal pain. She was evaluated by GI who performed before meals scope which was unremarkable. She continued to have persistent abdominal pain which was thought to be secondary to known gastroparesis, esophagitis and gastritis. Abdominal pain was improved and she was tolerating regular diet at time of discharge. She was discharged home on PPI, Reglan with outpatient follow-up. See assessment and plan for further details Discharge discussed with: patient - Time Spent with Patient Total time spent providing and/or coordinating discharge services: - Discharge Medications Home Medications: Aspirin 81 mg PO DAILY 04/05/15 [History] Atorvastatin [Lipitor] 40 mg PO DAILY 04/05/15 [History] Insulin LISPRO [HumaLOG] 5 - 15 units SQ TIDAC 04/05/15 [History] Topiramate [Topamax] 25 mg PO BID 08/23/15 [History] Folic Acid 1 mg PO DAILY #30 tablet 09/18/15 [Rx] Ergocalciferol (VITAMIN D2) [Vitamin D2 (50,000 UNIT)] 50,000 unit PO WE [History] Primidone [Mysoline] 50 mg PO HS 02/28/16 [History] Ascorbic Acid [Vitamin C] 500 mg PO DAILY 03/06/16 [History] Ferrous Sulfate [Iron] 325 mg PO DAILY 03/06/16 [History] Fluticasone Propionate Nasal [Flonase] 100 mcg NS DAILY 11/26/16 [History] Insulin Glargine/Lixisenatide [Soliqua 100 Unit-33 Mcg/ml Pen] 60 unit SQ HS [History] Tramadol HCl [Ultram] 50 mg PO TID 11/26/16 [History] Cyanocobalamin (Vitamin B-12) [Vitamin B-12] 500 mcg PO DAILY 05/06/17 [History] Furosemide [Lasix] 20 mg PO DAILY PRN 05/06/17 [History] Linagliptin [Tradjenta] 5 mg PO DAILY 05/06/17 [History] Loratadine [Claritin] 10 mg PO DAILY 05/06/17 [History] Metoprolol XL (24 HR) Succ [Toprol Xl] 25 mg PO DAILY 05/06/17 [History] Pioglitazone [Actos] 15 mg PO DAILY 05/06/17 [History] Pregabalin [Lyrica] 75 mg PO TID 05/06/17 [History] Sucralfate [Carafate] 1 gm PO QID 05/06/17 [History] Magnesium Oxide [Magnesium] 400 mg PO DAILY 07/07/17 [History] Acetaminophen [Tylenol] 650 mg PO Q6HR PRN tablet 07/10/17 [Rx] Ranitidine HCl [Zantac] 150 mg PO DAILY #30 tablet 07/10/17 [Rx] Metoclopramide [Reglan] 5 mg PO TIDAC #60 tablet 08/21/17 [Rx] Allergies/Adverse Reactions: 3 Allergy/AdvReac Type Severity Reaction Status Date / Time metformin Allergy Nausea Verified 07/06/17 04:30 Sulfa (Sulfonamide Allergy Nausea Verified 07/06/17 04:30 Antibiotics) sulfamethoxazole Allergy Nausea Verified 07/06/17 04:30 [From Bactrim] trimethoprim [From Bactrim] Allergy Nausea Verified 07/06/17 04:30 Date of admission: 08/18/17 14:52 Primary care physician: Mariaelena Vasquez CNP Consults: 08/20/17 11:52 Consult to Invasive Line Access Team [CONS] Routine Reason for Consult: limited IV access. Line Type: EPIV Discharging clinician: Debbie Lamar Anticipated date of discharge: 08/21/17 - Constitutional Vitals: Temp Pulse Resp BP Pulse Ox 97.6 F 80 16 144/84 95 08/21/17 07:18 08/21/17 07:18 08/21/17 07:18 08/21/17 07:18 08/21/17 07:18 General appearance: Present: A&O X 3, morbidly obese - Head Head exam: Present: atraumatic, normocephalic - Eye Eye exam: Present: PERRL, conjuntiva pink, sclera anicteric Pupils: Present: PERRL - Neck Neck exam general surgery: Present: supple, trachea midline. Absent: lymphadenopathy - Respiratory Respiratory exam: Present: CTAB. Absent: accessory muscle use, rales, rhonchi, wheezes - Cardiovascular Cardiovascular exam: Present: RRR, +S1, +S2. Absent: diastolic murmur, gallop, rubs, systolic murmur - GI/Abdominal GI/Abdominal exam: Present: normal bowel sounds, soft, no peritoneal signs. Absent: distended, tenderness - Extremities Exam Extremities exam: Present: warm, radial pulses palpable and symmetrical. Absent : calf tenderness, cyanotic, pedal edema - Neurological Exam Neurological exam: Present: CN II-XII intact, oriented X3, no focal deficits. Absent: pronater drift, facial droop, speech deficit - Skin Skin exam: Present: dry, intact - Patient Status Disposition: Home, Self-Care Condition: Good Functional capacity at discharge: independent ambulation Overall status at discharge: patient is progressing back to baseline - Discharge Instructions Instructions: Diabetic gastroparesis (DC), Metoclopramide (By mouth), Gastritis (DC) Follow Up With: Mariaelena Vasquez CNP [Primary Care Provider] - (Please call for appt within 1- 2 weeks) Cyndi Estes MD [Partnered Physician] - 08/26/17 1:40 am Romero Peñaloza MD [Partnered Physician] - (Please call for follow-up appointment within 2 weeks) Additional Instructions: Admitted as inpatient - Diet and Activity Activity: increase activity as tolerated Diet: diabetic diet - VTE Documentation of Mechanical Device: Intermittent pneumatic compression device
[2017-08-21 11:02] VITALS: BP 147/83
== END 2017-08-21 13:27 | disposition home or self-care (01) | DRG 74 ==
LOC: EMEROO 07:08 → 3ANU 07:08 → SUATTDRO 11:40 → 3ANU 12:32
PROVIDERS: ADMIT Internal Medicine; ATTEND Registered Nurse
PROC: ENDOCBX (2017-08-20 18:30)

== ENCOUNTER 2017-09-11 07:41 | Inpatient (IN) ==
[2017-09-11 08:19] LABS: Basophils % 0.4 %; Eosinophils # 0.1 K/mcL (0.0-0.6); Eosinophils % 0.5 %; Hematocrit 34.9 % (35.3-44.9); Hemoglobin 11.1 g/dL (11.5-15.4); Immature Granulocytes % 0.7 % (0-4); Lymphocytes % 50.8 %; Mean Corpuscular HGB Conc 31.8 g/dL (31.6-35.5); Mean Corpuscular Hemoglobin 28.6 pg (28.0-33.3); Mean Corpuscular Volume 89.9 fL (83.0-100.0); Monocytes # 0.4 K/mcL (0.0-1.3); Monocytes % 3.9 %; Neutrophils # 4.3 K/mcL (1.6-8.9); Platelet Count 115 K/mcL (140-400); Red Blood Count 3.88 M/mcL (3.82-4.97); Red Cell Distribution Width 14.3 % (11.5-14.5); Segmented Neutrophils % 43.7 %
[2017-09-11 08:47] LABS: Troponin I < 0.03 ng/mL (< 0.04)
[2017-09-11 08:48] LABS: BUN/Creatinine Ratio 12 (6-26); Blood Urea Nitrogen 11 mg/dL (8-23); Calcium 8.8 mg/dL (8.6-10.3); Carbon Dioxide 24 mEq/L (23-29); Chloride 104 mEq/L (98-107); Glucose 230 mg/dL (70-105); Osmolality,Calculated 297 (280-300); Sodium 140 mEq/L (136-145); eGFR For African Americans > 60 (> 60); eGFR For Non-African Americans > 60 (> 60)
[2017-09-11] MEDS ORDERED: Potassium Chloride Elixir 20 MEQ/15 ML UDC PO ONE (09:03)
--- NOTE | 2017-09-11 09:06 | Emergency Department Note ---
START Narrative - START START: I examined this patient and my medical decision-making was reviewed with the POURER CRANE LADLE/PA/Advanced Practice Nurse/Resident Physician. I agree with the documented findings, disposition and treatment plan as described except to the extent set forth below. I did see the patient is spoke with her and she does have hypoxemia and she does have pneumonia seen on her x-ray. She is sitting comfortably on the cart. She does not have a history of home oxygenfor a history of COPD. Diagnosis is pneumonia. 09
[2017-09-11] MEDS ORDERED: Azithromycin 500 MG in D5% in Water 250 ML IVPB ONE (09:22)
[2017-09-11] MEDS ORDERED: cefTRIAXone 1,000 MG in Water for inj. (sterile) 20 ML 10 ML IVP ONE ×2 (09:22→16:00)
--- NOTE | 2017-09-11 09:32 | Emergency Department Note ---
Disposition Clinical Impression: Multifocal pneumonia Sepsis Qualifiers: Sepsis type: sepsis due to unspecified organism Qualified Code(s): A41.9 - Sepsis, unspecified organism Disposition: Admitted As Inpatient Condition: Fair Referrals: Mariaelena Vasquez CNP [Primary Care Provider] - Time of Disposition: 09:45 SOB HPI - General Chief Complaint: ED Shortness of Breath/Dyspnea Stated Complaint: STEFFEN/Cough Time Seen by Provider: 09/11/17 07:58 Source: patient Limitations: no limitations Nursing Notes Reviewed: Yes Vital Signs Reviewed: Yes - History of Present Illness Patient is a 67-year-old female who presents to [facility] ED with a chief complaint of difficulty breathing and cough for the last week. States she has had cold symptoms and it is not going away. Denies any nausea, vomiting, fever or chills. States she has had some abdominal pain but that she has abdominal pain all the time and this is nothing different. No difficulty with urination or bowel movements. Denies any past medical history of heart disease or lung disease. Pt Subjective Complaint: shortness of breath, cough Onset (ago): day(s) Context: recent illness Severity: moderate Consistency/Duration: gradually worsening Improves with: nothing Worsens with: exertion Associated symptoms: Reports: cough, abdominal pain. Denies: chest pain, fever , wheezing, nausea/vomiting Treatment prior to arrival: none Cough present: Yes Cough Description: Involuntary Cough Frequency: Intermittent Sputum production: Yes - Related Data Home oxygen amount: none Home Medications Medication Instructions Recorded Confirmed Aspirin 81 mg PO DAILY 04/05/15 09/04/17 Atorvastatin [Lipitor] 40 mg PO DAILY 04/05/15 09/04/17 Insulin LISPRO [HumaLOG] 5 - 15 units SQ TIDAC 04/05/15 09/04/17 Topiramate [Topamax] 25 mg PO BID 08/23/15 09/04/17 Ergocalciferol (VITAMIN D2) 50,000 unit PO WE 02/28/16 09/04/17 [Vitamin D2 (50,000 UNIT)] Primidone [Mysoline] 50 mg PO HS 02/28/16 09/04/17 Ascorbic Acid [Vitamin C] 500 mg PO DAILY 03/06/16 09/04/17 Ferrous Sulfate [Iron] 325 mg PO DAILY 03/06/16 09/04/17 Fluticasone Propionate Nasal 100 mcg NS DAILY 11/26/16 09/04/17 [Flonase] Insulin Glargine/Lixisenatide 60 unit SQ HS 11/26/16 09/04/17 [Soliqua 100 Unit-33 Mcg/ml Pen] Tramadol HCl [Ultram] 50 mg PO TID 11/26/16 09/04/17 Cyanocobalamin (Vitamin B-12) 500 mcg PO DAILY 05/06/17 09/04/17 [Vitamin B-12] Furosemide [Lasix] 20 mg PO DAILY PRN 05/06/17 09/04/17 Linagliptin [Tradjenta] 5 mg PO DAILY 05/06/17 09/04/17 Loratadine [Claritin] 10 mg PO DAILY 05/06/17 09/04/17 Metoprolol XL (24 HR) Succ [Toprol 25 mg PO DAILY 05/06/17 09/04/17 Xl] Pioglitazone [Actos] 15 mg PO DAILY 05/06/17 09/04/17 Pregabalin [Lyrica] 75 mg PO TID 05/06/17 09/04/17 Sucralfate [Carafate] 1 gm PO QID 05/06/17 09/04/17 Magnesium Oxide [Magnesium] 400 mg PO DAILY 07/07/17 09/04/17 Previous Rx's Medication Instructions Recorded Folic Acid 1 mg PO DAILY #30 tablet 09/18/15 Acetaminophen [Tylenol] 650 mg PO Q6HR PRN tablet 07/10/17 Ranitidine HCl [Zantac] 150 mg PO DAILY #30 tablet 07/10/17 Metoclopramide [Reglan] 5 mg PO TIDAC #60 tablet 08/21/17 Non-Formulary Medication 1 tab PO DAILY #30 each 09/02/17 Ondansetron ODT [Zofran ODT] 4 mg SL Q6HR #20 tab.rapdis 09/02/17 Benzonatate [Tessalon] 100 mg PO TID PRN #21 capsule 09/09/17 Allergies Allergy/AdvReac Type Severity Reaction Status Date / Time metformin Allergy Nausea Verified 09/11/17 07:47 Sulfa (Sulfonamide Allergy Nausea Verified 09/11/17 07:47 Antibiotics) sulfamethoxazole Allergy Nausea Verified 09/11/17 07:47 [From Bactrim] trimethoprim [From Bactrim] Allergy Nausea Verified 09/11/17 07:47 All systems ED: reviewed and negative except as stated. Past Medical History - Past Medical History Attestation: Yes The following information was validated with the patient. Source: patient Medical history: Reports: cancer, coronary artery disease, diabetes, hypertension, renal disease, other Surgical history: Reports: appendectomy, cholecystectomy, THERESE/BSO, other Psychiatric history: Reports: anxiety, depression CATALYST CONCENTRATION OPERATOR history: Reports: no CATALYST CONCENTRATION OPERATOR history - Social History Smoking Status: Never smoker Smokeless Tobacco Status: No Alcohol use: Reports: none Drug use: Reports: none Physical Exam - General Limitations: no limitations General appearance: alert, in no apparent distress - Head Head exam: atraumatic, normocephalic, normal inspection - Eye Eye exam: Present: normal appearance, EOMI - ENT ENT exam: normal exam, normal oropharynx, mucous membranes moist - Neck Neck exam: Present: normal inspection, full ROM, trachea midline - Chest Chest inspection: Present: normal inspection, symmetric chest wall rise - Respiratory Respiratory exam: Present: other (Rhonchi diffusely) - Cardiovascular Cardiovascular exam: Present: normal rhythm, tachycardia - Abdominal Exam Abdominal exam: Present: soft, Non-Tender. Absent: tenderness, distention, guarding, rebound, rigidity - Extremities Exam Extremities exam: Present: normal inspection, full ROM. Absent: tenderness, pedal edema - Back Exam Back exam: Present: normal inspection, full ROM. Absent: tenderness - Neurological Exam Neurological exam: Present: alert, oriented X3 - Psychiatric Psychiatric exam: Present: normal affect, normal mood - Skin Skin exam: Present: warm, dry, intact, normal color Course Course Narrative: Patient seen and examined. The vocal deep breathing with upper respiratory symptoms for the last week. No prior cardiac history. Cardiopulmonary workup initiated. Patient's vital signs are stable. She is 92% on room air. On exam , she has diffuse rhonchi bilaterally. No history of congestive heart failure. - Reevaluation(s) Reevaluation #1: Labwork shows an elevated lactate of 2.9. Chest x-ray shows multifocal pneumonia versus congestive heart failure. Since she has had upper respiratory symptoms, this is consistent with multifocal pneumonia. We will go ahead and start antibiotics and treat as sepsis. We will give a 30 mL/kg bolus of IV fluids and start IV Rocephin and azithromycin. We will also get blood cultures prior to starting antibiotics. I spoke with the hospitalist Dr. Martins who has accepted patient for admission. Time: 09:40 Vital Signs Temperature 99.8 F H 09/11/17 07:47 Pulse Rate 106 09/11/17 07:47 Respiratory Rate 22 09/11/17 07:47 Blood Pressure 155/73 09/11/17 07:47 O2 Sat by Pulse Oximetry 92 09/11/17 07:47 Temperature 99.8 F H 09/11/17 07:47 Pulse Rate 106 09/11/17 07:47 Respiratory Rate 22 09/11/17 07:47 Blood Pressure 155/73 09/11/17 07:47 O2 Sat by Pulse Oximetry 92 09/11/17 07:47 Oxygen Delivery Oxygen Delivery Room Air Shortness of Breath/Dyspnea - Medical Records Medical records reviewed: Yes I reviewed the patient's medical records. - Lab Data Lab results reviewed: Yes I reviewed the patient's lab results. Result diagrams: 09/11/17 08:02 09/11/17 08:02 Lab Results 09/11/17 09/11/17 09/11/17 Range/Units 08:02 08:02 08:02 WBC 9.9 (4.3-11.1) K/mcL RBC 3.88 (3.82-4.97) M/mcL Hgb 11.1 L (11.5-15.4) g/dL Hct 34.9 L (35.3-44.9) % MCV 89.9 (83.0-100.0) fL MCH 28.6 (28.0-33.3) pg MCHC 31.8 (31.6-35.5) g/dL RDW 14.3 (11.5-14.5) % Plt Count 115 L (140-400) K/mcL MPV 11.0 (9.4-12.4) fL Immature Gran % 0.7 (0-4) % Seg Neutrophils % 43.7 % Lymphocytes % 50.8 % Monocytes % 3.9 % Eosinophils % 0.5 % Basophils % 0.4 % Neutrophils # 4.3 (1.6-8.9) K/mcL Lymphocytes # 5.0 H (0.6-4.6) K/mcL Monocytes # 0.4 (0.0-1.3) K/mcL Eosinophils # 0.1 (0.0-0.6) K/mcL Basophils # 0.0 (0.0-0.2) K/mcL Sodium 140 (136-145) mEq/L Potassium 3.0 L (3.5-5.1) mEq/L Chloride 104 (98-107) mEq/L Carbon Dioxide 24 (23-29) mEq/L BUN 11 (8-23) mg/dL Creatinine 0.91 (0.60-1.20) mg/dL Est GFR ( Amer) > 60 (> 60) Est GFR (Non-Af Amer) > 60 (> 60) BUN/Creatinine Ratio 12 (6-26) Glucose 230 H (70-105) mg/dL Calculated Osmolality 297 (280-300) Lactic Acid 2.9 H (0.5-2.2) mmol/L Calcium 8.8 (8.6-10.3) mg/dL Troponin I < 0.03 (< 0.04) ng/mL B-Natriuretic Peptide (Less than 100) pg/mL 09/11/17 Range/Units 08:02 WBC (4.3-11.1) K/mcL RBC (3.82-4.97) M/mcL Hgb (11.5-15.4) g/dL Hct (35.3-44.9) % MCV (83.0-100.0) fL MCH (28.0-33.3) pg MCHC (31.6-35.5) g/dL RDW (11.5-14.5) % Plt Count (140-400) K/mcL MPV (9.4-12.4) fL Immature Gran % (0-4) % Seg Neutrophils % % Lymphocytes % % Monocytes % % Eosinophils % % Basophils % % Neutrophils # (1.6-8.9) K/mcL Lymphocytes # (0.6-4.6) K/mcL Monocytes # (0.0-1.3) K/mcL Eosinophils # (0.0-0.6) K/mcL Basophils # (0.0-0.2) K/mcL Sodium (136-145) mEq/L Potassium (3.5-5.1) mEq/L Chloride (98-107) mEq/L Carbon Dioxide (23-29) mEq/L BUN (8-23) mg/dL Creatinine (0.60-1.20) mg/dL Est GFR ( Amer) (> 60) Est GFR (Non-Af Amer) (> 60) BUN/Creatinine Ratio (6-26) Glucose (70-105) mg/dL Calculated Osmolality (280-300) Lactic Acid (0.5-2.2) mmol/L Calcium (8.6-10.3) mg/dL Troponin I (< 0.04) ng/mL B-Natriuretic Peptide 52 (Less than 100) pg/mL - Radiology Data Radiology results reviewed: Yes I reviewed the patient's radiology results. Chest X-Ray 09/11/17 07:51 IMPRESSION: Mild vascular congestion with patchy airspace disease bilaterally which could represent multifocal pneumonia or pulmonary edema. D/ / Eric Knott MD / Eric Knott MD Interpreting Provider: Eric Knott MD - EKG Data EKG attestation: Yes I reviewed and interpreted this EKG. EKG results narrative: EKG done at 748 shows sinus tachycardia with a rate of [address] elevation. There is some mild ST depression in leads V5 and V6 as well as 2, 3 , aVF. Normal axis. Normal appearing intervals.
[2017-09-11 09:49] LABS: Magnesium 1.4 mg/dL (1.6-2.6); Phosphorous 2.5 mg/dL (2.7-4.5)
[2017-09-11] MEDS: 0.9 % Sodium Chloride 1,000 ML IVC SCH ×2 (10:05→14:33)
--- NOTE | 2017-09-11 12:50 | Internal Med History&Physical ---
Date of Encounter: 09/11/17 Time of Encounter: 11:00 Assessment and Plan (1) Community acquired pneumonia Current visit: No Status: Acute Patient with productive cough for one week and shortness of breath 1 day with findings concerning for infiltrate on x-ray. Will continue ceftriaxone and azithromycin started in the ER community acquired pneumonia Qualifiers: Laterality: left Lung location: unspecified part of lung Qualified Code(s ): J18.9 - Pneumonia, unspecified organism (2) Hypokalemia Current visit: Yes Status: Acute Patient with a potassium of 3.0 in the ER and was given potassium supplementation Continue to monitor (3) CLL (chronic lymphocytic leukemia) Current visit: No Status: Chronic Stable (4) Anemia Current visit: No Status: Acute Hemoglobin at baseline Qualifiers: Anemia type: other cause Other causes of anemia: chronic disease, neoplastic Qualified Code(s): D63.0 - Anemia in neoplastic disease (5) DM2 (diabetes mellitus, type 2) Current visit: No Status: Chronic Glucose 230 in the ER Continue home medications Qualifiers: Diabetes mellitus halfway insulin use: with halfway use Diabetes mellitus complication status: with kidney complications Diabetes mellitus complication detail: with chronic kidney disease Chronic kidney disease stage : stage 3 (moderate) Qualified Code(s): E11.22 - Type 2 diabetes mellitus with diabetic chronic kidney disease; N18.3 - Chronic kidney disease, stage 3 ( moderate); N18.3 - Chronic kidney disease, stage 3 (moderate); Z79.4 - assisted (current) use of insulin; Z79.4 - truck terminal manager (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) use of insulin; Z79.4 - truck terminal manager (current) use of insulin; Z79.4 - truck terminal manager (current) use of insulin (6) HTN (hypertension) Current visit: No Status: Chronic Controlled; continue home medications Qualifiers: Hypertension type: essential hypertension Qualified Code(s): I10 - Essential (primary) hypertension (7) Obesity (BMI 30-39.9) Current visit: No Status: Chronic Lifestyle modifications (8) DVT prophylaxis Current visit: Yes Status: Acute Subcutaneous heparin Internal Medicine - H&P: HPI Chief complaint: Shortness of breath/cough Admitted From: Home Plans for Post Hospital Care: Home History of present illness: Patient is a 67-year-old female with past medical history significant for CLL, diabetes, hypertension, hyperlipidemia and iron deficiency anemia who presents to the ER on 09/11/17 due to cough and shortness of breath. Patient reports a one-week history of productive cough and a one-day history of shortness of breath. Patient denies any fevers or chills or diarrhea. Patient was concerned and came to the ER for evaluation. In the ER, x-ray showed concerns for infiltrates and patient will be admitted to the medical surgical floor for management of community-acquired pneumonia. Past Med Surg Social Fam HX - Past Medical History Medical history: cancer, coronary artery disease, diabetes, hypertension, renal disease, other Psychiatric history: anxiety, depression - Past Surgical History Surgical History: appendectomy, cholecystectomy, THERESE/BSO, other - Social History Smoking Status: Never smoker Smokeless Tobacco Status: No Alcohol use: none Drug use: none - Family History Mother Family Member Ethnicity: Non- Living Status: Hx Family Cardiac Disorders: No Hx Family Respiratory Disorders: No Hx Family Cancer: No Hx Family GI Disorders: No Hx Family Endocrine Disorder: Yes (DM) Hx Family Neuromuscular Disorders: No Hx Family Neurologic Disorders: No Hx Family HEENT Disorders: No Hx Family Autoimmune Disorders: No Father Adopted: No Family Member Ethnicity: Non- Living Status: Hx Family Cardiac Disorders: Yes (AR) Hx Family Respiratory Disorders: No Hx Family Cancer: No Hx Family GI Disorders: No Hx Family Endocrine Disorder: No Hx Family Neuromuscular Disorders: No Hx Family Neurologic Disorders: No Hx Family HEENT Disorders: No Hx Family Autoimmune Disorders: No Internal Medicine - H&P: Meds Aspirin 81 mg PO DAILY 04/05/15 [History] Atorvastatin [Lipitor] 40 mg PO DAILY 04/05/15 [History] Insulin LISPRO [HumaLOG] 5 - 15 units SQ TIDAC 04/05/15 [History] Topiramate [Topamax] 25 mg PO BID 08/23/15 [History] Folic Acid 1 mg PO DAILY #30 tablet 09/18/15 [Rx] Ergocalciferol (VITAMIN D2) [Vitamin D2 (50,000 UNIT)] 50,000 unit PO WE [History] Primidone [Mysoline] 50 mg PO HS 02/28/16 [History] Ascorbic Acid [Vitamin C] 500 mg PO DAILY 03/06/16 [History] Ferrous Sulfate [Iron] 325 mg PO DAILY 09/22/16 [History] Fluticasone Propionate Nasal [Flonase] 100 mcg NS DAILY 11/26/16 [History] Insulin Glargine/Lixisenatide [Soliqua 100 Unit-33 Mcg/ml Pen] 60 unit SQ HS [History] Tramadol HCl [Ultram] 50 mg PO TID 11/26/16 [History] Cyanocobalamin (Vitamin B-12) [Vitamin B-12] 500 mcg PO DAILY 05/06/17 [History] Furosemide [Lasix] 20 mg PO DAILY PRN 05/06/17 [History] Linagliptin [Tradjenta] 5 mg PO DAILY 05/06/17 [History] Loratadine [Claritin] 10 mg PO DAILY 05/06/17 [History] Metoprolol XL (24 HR) Succ [Toprol Xl] 25 mg PO DAILY 05/06/17 [History] Pioglitazone [Actos] 15 mg PO DAILY 05/06/17 [History] Pregabalin [Lyrica] 75 mg PO TID 05/06/17 [History] Sucralfate [Carafate] 1 gm PO QID 05/06/17 [History] Magnesium Oxide [Magnesium] 400 mg PO DAILY 07/07/17 [History] Acetaminophen [Tylenol] 650 mg PO Q6HR PRN tablet 07/10/17 [Rx] Ranitidine HCl [Zantac] 150 mg PO DAILY #30 tablet 07/10/17 [Rx] Metoclopramide [Reglan] 5 mg PO TIDAC #60 tablet 08/21/17 [Rx] Benzonatate [Tessalon] 100 mg PO TID PRN #21 capsule 09/09/17 [Rx] Ibrutinib [Imbruvica] 420 cap PO DAILY 09/11/17 [History] 3 Allergy/AdvReac Type Severity Reaction Status Date / Time metformin Allergy Nausea Verified 09/11/17 09:55 Sulfa (Sulfonamide Allergy Nausea Verified 09/11/17 09:55 Antibiotics) sulfamethoxazole Allergy Nausea Verified 09/11/17 09:55 [From Bactrim] trimethoprim [From Bactrim] Allergy Nausea Verified 09/11/17 09:55 All Systems PM: A 10-system review of systems was performed and is negative for pertinent findings except as documented above in the HPI. - Constitutional Vitals: Temp Pulse Resp BP Pulse Ox 99.4 F 94 18 160/82 95 09/11/17 10:56 09/11/17 10:56 09/11/17 10:56 09/11/17 10:56 09/11/17 10:56 General appearance: Present: A&O X 3, no acute distress - Eye Eye exam: Present: normal appearance - ENT ENT exam: Present: mucous membranes moist - Respiratory Respiratory exam: Present: rhonchi, wheezes. Absent: accessory muscle use - Cardiovascular Cardiovascular exam: Present: RRR, +S1, +S2. Absent: diastolic murmur, gallop, rubs, systolic murmur - GI/Abdominal GI/Abdominal exam: Present: normal bowel sounds, soft, no peritoneal signs. Absent: distended, tenderness - Extremities Exam Extremities exam: Absent: pedal edema - Neurological Exam Neurological exam: Present: oriented X3, no focal deficits - Psychiatric Psychiatric exam: Present: normal mood - Skin Skin exam: Present: normal color Internal Med - H&P Results - Labs CBC & Chem 7: 09/11/17 08:02 09/11/17 08:02
[2017-09-11] MEDS ORDERED: Naloxone 0.4 MG/ML INJ IVP PRN (13:14)
[2017-09-11] MEDS ORDERED: Furosemide 20 MG TABLET PO PRN (13:28)
[2017-09-11] MEDS: Acetaminophen 325 MG TABLET PO PRN (14:50)
[2017-09-11] MEDS ORDERED: Ondansetron 4 MG/2 ML VIAL IVP PRN (15:34)
[2017-09-11] MEDS: Ipratropium/Albuterol Neb 3 ML IH SCH ×3 (16:32→23:46)
[2017-09-11] MEDS: *HR* Heparin 5,000 UNIT/ML VIAL SQ SCH ×2 (17:11→21:30)
[2017-09-11] MEDS ORDERED: Dextrose Gel 15 GM/37.5 ML TUBE PO PRN ×2 (17:16)
[2017-09-11] MEDS ORDERED: D5% in Water 1,000 ML IVC PRN (17:16)
[2017-09-11] MEDS ORDERED: *HR* Dextrose 50 % in Water (Syg) 50 ML SYRINGE IVP PRN (17:16)
[2017-09-11 17:39] LABS: Adenovirus Not Detected (Not Detect); Bordetella Pertussis Not Detected (Not Detect); Chlamydophila pneumoniae Not Detected (Not Detect); Coronavirus 229E Not Detected (Not Detect); Coronavirus HKU1 Not Detected (Not Detect); Coronavirus NL63 Not Detected (Not Detect); Coronavirus OC43 Not Detected (Not Detect); Human Metapneumovirus ***DETECTED*** (Not Detect); Human Rhinovirus/Enterovirus Not Detected (Not Detect); Influenza A Subtype 2009 H1 Not Detected (Not Detect); Influenza A Untypeable Not Detected (Not Detect); Influenza B Not Detected (Not Detect); Mycoplasma pneumoniae Not Detected (Not Detect); Parainfluenza Virus 1 Not Detected (Not Detect); Parainfluenza Virus 2 Not Detected (Not Detect); Parainfluenza Virus 3 Not Detected (Not Detect); Parainfluenza Virus 4 Not Detected (Not Detect); Respiratory Syncytial Virus Not Detected (Not Detect)
[2017-09-11] MEDS: traMADol 50 MG TABLET PO SCH ×2 (17:55→21:29)
[2017-09-11] MEDS: Pregabalin 75 MG CAPSULE PO SCH ×2 (17:55→21:29)
[2017-09-11] MEDS: Insulin LISPRO 300 UNITS/3 ML VIAL SQ SCH ×2 (17:59→21:31)
[2017-09-11] MEDS: Primidone 50 MG TABLET PO SCH (21:29)
[2017-09-11] MEDS: Benzonatate 100 MG CAPSULE PO PRN (21:29)
[2017-09-11] MEDS: Topiramate 25 MG TABLET PO SCH (21:30)
[2017-09-11] MEDS: INSULIN GLARGINE SQ SCH (21:40)
[2017-09-11] MEDS: LIXISENATIDE SQ SCH (21:40)
[2017-09-12] MEDS: Acetaminophen 325 MG TABLET PO PRN ×3 (00:21→21:39)
[2017-09-12] MEDS: Ipratropium/Albuterol Neb 3 ML IH SCH ×6 (03:52→23:35)
[2017-09-12 04:39] LABS: Basophils % 0.3 %; Eosinophils % 0.4 %; Hematocrit 30.7 % (35.3-44.9); Hemoglobin 9.8 g/dL (11.5-15.4); Mean Corpuscular HGB Conc 31.9 g/dL (31.6-35.5); Red Cell Distribution Width 14.2 % (11.5-14.5); Segmented Neutrophils % 39.9 %
[2017-09-12 04:41] LABS: Immature Granulocytes % 0.7 % (0-4); Immature Platelets 6.9 % (1.1-6.1); Lymphocytes % 54.2 %; Mean Corpuscular Hemoglobin 28.3 pg (28.0-33.3); Mean Corpuscular Volume 88.7 fL (83.0-100.0); Mean Platelet Volume 11.3 fL (9.4-12.4); Monocytes # 0.3 K/mcL (0.0-1.3); Monocytes % 4.5 %; Red Blood Count 3.46 M/mcL (3.82-4.97)
[2017-09-12 04:56] LABS: Platelet Count 90 K/mcL (140-400)
[2017-09-12 06:50] LABS: BUN/Creatinine Ratio 13 (6-26); Blood Urea Nitrogen 10 mg/dL (8-23); Calcium 8.7 mg/dL (8.6-10.3); Carbon Dioxide 21 mEq/L (23-29); Chloride 107 mEq/L (98-107); Glucose 244 mg/dL (70-105); Osmolality,Calculated 299 (280-300); Potassium 3.2 mEq/L (3.5-5.1); Sodium 141 mEq/L (136-145); eGFR For African Americans > 60 (> 60); eGFR For Non-African Americans > 60 (> 60)
[2017-09-12] MEDS: Insulin LISPRO 300 UNITS/3 ML VIAL SQ SCH ×4 (08:54→21:40)
[2017-09-12] MEDS: Magnesium Oxide 400 MG TABLET PO SCH (08:55)
[2017-09-12] MEDS: Cyanocobalamin (B-12) 1,000 MCG TABLET PO SCH (08:55)
[2017-09-12] MEDS: Folic Acid 1 MG TABLET PO SCH (08:55)
[2017-09-12] MEDS: *HR* Heparin 5,000 UNIT/ML VIAL SQ SCH ×3 (08:55→21:40)
[2017-09-12] MEDS: *HR* Pioglitazone 15 MG TABLET PO SCH (08:55)
[2017-09-12] MEDS: Aspirin 81 MG TAB.CHEW PO SCH (08:55)
[2017-09-12] MEDS: traMADol 50 MG TABLET PO SCH ×3 (08:56→21:40)
[2017-09-12] MEDS: Metoprolol XL (24 HR) Succ 25 MG TAB.ER.24H PO SCH (08:56)
[2017-09-12] MEDS: Topiramate 25 MG TABLET PO SCH ×2 (08:57→21:39)
[2017-09-12] MEDS: Pregabalin 75 MG CAPSULE PO SCH ×3 (08:57→21:39)
[2017-09-12] MEDS: Famotidine 20 MG TABLET PO SCH (08:57)
[2017-09-12] MEDS: Loratadine 10 MG TABLET PO SCH (08:57)
[2017-09-12] MEDS: (Linagliptin [Tradjenta] 5 MG) PO SCH (10:25)
[2017-09-12] MEDS: cefTRIAXone 2,000 MG in Water for inj. (sterile) 20 ML 20 ML IVP SCH (10:31)
[2017-09-12] MEDS: Azithromycin 500 MG in D5% in Water 250 ML IVPB SCH (10:31)
[2017-09-12] MEDS: Fluticasone Propionate Nasal 50 MCG/SPRAY BOTTLE NS SCH (12:00)
--- NOTE | 2017-09-12 17:13 | Internal Med Progress Note ---
<Mikey Medrano - Last Filed: 09/12/17 17:59> Date of Encounter: 09/12/17 Time of Encounter: 17:00 - Assessment and plan (1) Community acquired pneumonia Current Visit: No Status: Acute Assessment and plan: Patient with productive cough for one week and shortness of breath 1 day Findings concerning for infiltrate on x-ray Significant wheezing on auscultation with no known history of COPD Will continue ceftriaxone and azithromycin started in the ER community acquired pneumonia Day 1 of 7 We will continue breathing treatments We will start steroids Qualifiers: Laterality: left Lung location: unspecified part of lung Qualified Code(s ): J18.9 - Pneumonia, unspecified organism (2) Hypokalemia Current Visit: Yes Status: Acute Assessment and plan: Slightly decreased potassium at 3.2 Also found to have decreased magnesium at 1.4 Phosphorus also decreased We will replace all the above electrolytes and recheck in the morning (3) Hypomagnesemia Current Visit: Yes Status: Acute Assessment and plan: As above (4) Hypophosphatemia Current Visit: Yes Status: Acute Assessment and plan: As above (5) Anemia Current Visit: Yes Status: Acute Assessment and plan: Hgb currently 9.8, it was 11.1 at admission Could be dilutional will continue to monitor If hgb worsens will look for source starting with GI Qualifiers: Anemia type: other cause Other causes of anemia: chronic disease, neoplastic Qualified Code(s): D63.0 - Anemia in neoplastic disease (6) CLL (chronic lymphocytic leukemia) Current Visit: No Status: Chronic Assessment and plan: Stable (7) DM2 (diabetes mellitus, type 2) Current Visit: Yes Status: Chronic Assessment and plan: Continue sliding scale insulin will check insulin requirements tomorrow and adjust accordingly Qualifiers: Diabetes mellitus mobile marketing manager insulin use: with mobile marketing manager use Diabetes mellitus complication status: with kidney complications Diabetes mellitus complication detail: with chronic kidney disease Chronic kidney disease stage : stage 3 (moderate) Qualified Code(s): E11.22 - Type 2 diabetes mellitus with diabetic chronic kidney disease; N18.3 - Chronic kidney disease, stage 3 ( moderate); N18.3 - Chronic kidney disease, stage 3 (moderate); Z79.4 - half-way (current) use of insulin; Z79.4 - manager beverage (current) use of insulin; Z79.4 - manager beverage (current) use of insulin; Z79.4 - half-way (current) use of insulin (8) DVT prophylaxis Current Visit: Yes Status: Acute Assessment and plan: Heparin SQ TID encourage ambulation (9) HTN (hypertension) Current Visit: No Status: Chronic Assessment and plan: Controlled, continue home medications Qualifiers: Hypertension type: essential hypertension Qualified Code(s): I10 - Essential (primary) hypertension (10) Obesity (BMI 30-39.9) Current Visit: No Status: Chronic - Subjective Interval history: Patient states she feels slightly better today. Mainly her cough is improved, though she states she gets sort of breath with the cough so that his improvement overall as well. She does report having some mild fevers and chills continuing. She states her appetite has begun to return, though is not at baseline. She denies any nausea/vomiting. - Constitutional Vitals: Temp Pulse Resp BP Pulse Ox 98.9 F 88 18 108/68 96 09/12/17 15:37 09/12/17 15:37 09/12/17 15:37 09/12/17 15:37 09/12/17 15:37 General appearance: Present: A&O X 3, no acute distress Exam: General: Cooperative, pleasant, no acute distress, alert and oriented 3, answers questions appropriately HEENT: Normocephalic, atraumatic, nConjunctiva pink, sclera anicteric, oral mucosa moist Respiratory: No accessory muscle usage, diffuse wheezing throughout both lung [place] Cardiovascular: Regular rate and rhythm, S1 and S2 present, no murmurs/rubs/ gallops/clicks appreciated GI/abdominal: Nondistended, nontender, soft, normal bowel sounds, no peritoneal signs Extremities: No calf tenderness, mild pedal edema appreciated, warm, lower extremity pulses palpable and symmetrical Neurological: Alert and oriented 3, no facial droop, no focal deficits Skin: Dry, intact, normal color Internal Medicine: Result - Labs CBC & Chem 7: 09/12/17 04:11 09/12/17 04:11 Labs: Short CBC 09/12/17 Range/Units 04:11 WBC 7.4 (4.3-11.1) K/mcL Hgb 9.8 L (11.5-15.4) g/dL Hct 30.7 L (35.3-44.9) % Plt Count 90 L (140-400) K/mcL Neutrophils # 3.0 (1.6-8.9) K/mcL BMP 09/12/17 04:11 Sodium 141 Potassium 3.2 L Chloride 107 Carbon Dioxide 21 L BUN 10 Creatinine 0.80 Glucose 244 H Calcium 8.7 Consult Discharge Plan - Plan Referrals: Mariaelena Vasquez, [employer]EL[employer] [Primary Care Provider] - <Akash Mckeon - Last Filed: 09/13/17 18:35> Date of Encounter: 09/12/17 - Constitutional Vitals: Temp Pulse Resp BP Pulse Ox 98.4 F 94 17 130/77 93 09/13/17 17:07 09/13/17 17:07 09/13/17 17:07 09/13/17 17:07 09/13/17 17:07 Internal Medicine: Result - Labs CBC & Chem 7: 09/13/17 04:32 09/13/17 10:05 Labs: Short CBC 09/13/17 Range/Units 04:32 WBC 7.6 (4.3-11.1) K/mcL Hgb 10.5 L (11.5-15.4) g/dL Hct 33.0 L (35.3-44.9) % Plt Count 95 L (140-400) K/mcL Neutrophils # 4.1 (1.6-8.9) K/mcL BMP 09/13/17 09/13/17 04:32 10:05 Sodium 136 136 Potassium 4.1 3.8 Chloride 101 100 Carbon Dioxide 25 24 BUN 13 15 Creatinine 0.88 0.94 Glucose 404 H 500 H* Calcium 8.7 8.8 Cardiac Enzymes 09/13/17 Range/Units 10:05 Troponin I < 0.03 (< 0.04) ng/mL Liver Function 09/13/17 Range/Units 10:05 Total Bilirubin 0.4 (0.3-1.0) mg/dL AST 11 L (13-39) Units/L ALT 8 (7-52) Units/L Alkaline Phosphatase 76 (34-104) Units/L Albumin 3.5 (3.5-5.7) g/dL - ABG Interpretation ABG results: PT/INR, D-dimer D-Dimer 1029 ng/mLFEU (0-500) H 04/01/18 10:05 - Impressions Impressions Chest X-Ray 09/13/17 09:36 IMPRESSION: Persistent bilateral airspace disease. D/ / 09/13/2017 16:36:25 Robbie Hess MD / matt Interpreting Provider: Robbie Hess MD Chest CTA 09/13/17 13:01 IMPRESSION: 1. No evidence of pulmonary embolus to the level of the proximal segmental branches. More distal branches are not well seen due to motion which degrades image quality. 2. Peribronchovascular ground-glass opacities in the lung bases bilaterally and centrilobular nodules in the left upper lobe and right upper lobe. Appearance is suggestive of an infectious or inflammatory process. Please correlate with clinical symptoms of pneumonia. 3. Mediastinal, axillary, submental/submandibular, and upper abdominal lymphadenopathy in keeping with clinical history of CLL. Degree of adenopathy has not significantly changed since prior exam of May 13, 2017. D/ / 09/13/2017 14:36:54 Edmond Hayden MD / grisel Interpreting Provider: Edmond Hayden MD - Attending Attestation This is a late addendum and signature for date of service 09/12/2017 I performed a [id number] diagnostic evaluation of this patient and my medical decision-making was reviewed with the Resident Physician, Dr Sean Medrano. I agree with the documented findings, disposition and treatment plan as described except to the extent set forth below. Physical exam: Gen: NAD, AAOx3 Heart: RRR, S1S2, no murmurs Lungs: Bilateral expiratory wheezing and rales. Abdomen: S, NT, + bowel sounds Assessment and plan: Community-acquired pneumonia: We will continue treatment with ceftriaxone and azithromycin. Follow-up blood cultures, sputum culture, provide supplemental oxygen, inhaled bronchodilators. Akash Mckeon MD
[2017-09-12] MEDS ORDERED: Calcium Acetate 667 MG CAPSULE PO SCH (17:15)
[2017-09-12] MEDS ORDERED: Albuterol 2.5 MG/3 ML NEBULIZER IH PRN (17:41)
[2017-09-12] MEDS: Benzonatate 100 MG CAPSULE PO PRN (21:39)
[2017-09-12] MEDS: Primidone 50 MG TABLET PO SCH (21:39)
[2017-09-12] MEDS: LIXISENATIDE SQ SCH (21:41)
[2017-09-12] MEDS: INSULIN GLARGINE SQ SCH (21:41)
[2017-09-13] MEDS: MethylPREDNISolone 40 MG/ML VIAL IVP SCH ×3 (00:40→17:31)
[2017-09-13] MEDS: Ipratropium/Albuterol Neb 3 ML IH SCH ×5 (03:52→19:43)
[2017-09-13 05:30] LABS: Basophils % 0.3 %; Eosinophils % 0.1 %; Hemoglobin 10.5 g/dL (11.5-15.4); Immature Granulocytes % 0.8 % (0-4); Lymphocytes % 42.7 %; Mean Corpuscular HGB Conc 31.8 g/dL (31.6-35.5); Mean Corpuscular Hemoglobin 28.8 pg (28.0-33.3); Mean Corpuscular Volume 90.4 fL (83.0-100.0); Mean Platelet Volume 11.7 fL (9.4-12.4); Monocytes # 0.2 K/mcL (0.0-1.3); Monocytes % 2.4 %; Neutrophils # 4.1 K/mcL (1.6-8.9); Nucleated Red Blood Cells 0.4 /100 WBC (0); Red Blood Count 3.65 M/mcL (3.82-4.97); Segmented Neutrophils % 53.7 %
[2017-09-13 05:31] LABS: Lymphocytes # 3.3 K/mcL (0.6-4.6); Platelet Count 95 K/mcL (140-400)
[2017-09-13] MEDS: *HR* Heparin 5,000 UNIT/ML VIAL SQ SCH ×2 (06:21→13:25)
[2017-09-13 06:40] LABS: BUN/Creatinine Ratio 15 (6-26); Blood Urea Nitrogen 13 mg/dL (8-23); Calcium 8.7 mg/dL (8.6-10.3); Carbon Dioxide 25 mEq/L (23-29); Chloride 101 mEq/L (98-107); Glucose 404 mg/dL (70-105); Magnesium 1.7 mg/dL (1.6-2.6); Osmolality,Calculated 299 (280-300); Phosphorous 3.6 mg/dL (2.7-4.5); Potassium 4.1 mEq/L (3.5-5.1); Sodium 136 mEq/L (136-145); eGFR For African Americans > 60 (> 60); eGFR For Non-African Americans > 60 (> 60)
--- NOTE | 2017-09-13 07:58 | Internal Med Progress Note ---
<Mikey Medrano - Last Filed: 09/13/17 07:56> Date of Encounter: 09/13/17 Time of Encounter: 07:50 - Assessment and plan (1) Community acquired pneumonia Current Visit: No Status: Acute Assessment and plan: Patient with productive cough for one week and shortness of breath 1 day Findings concerning for infiltrate on x-ray Improvement in wheezing today Rales on auscultation Continued fevers Will continue ceftriaxone and azithromycin started in the ER community acquired pneumonia Day 2 of 7 We will continue breathing treatments with DuoNeb's We will continue steroids today and begin taper tomorrow Continue Tessalon Acetaminophen for continued fevers Qualifiers: Laterality: left Lung location: unspecified part of lung Qualified Code(s ): J18.9 - Pneumonia, unspecified organism (2) Hypokalemia Current Visit: Yes Status: Acute Assessment and plan: Electrolytes improved today We will continue to monitor potassium, phosphate, magnesium with daily chemistry (3) Hypomagnesemia Current Visit: Yes Status: Acute Assessment and plan: As above (4) Hypophosphatemia Current Visit: Yes Status: Acute Assessment and plan: As above (5) Anemia Current Visit: Yes Status: Acute Assessment and plan: Hemoglobin stable will continue to monitor Qualifiers: Anemia type: other cause Other causes of anemia: chronic disease, neoplastic Qualified Code(s): D63.0 - Anemia in neoplastic disease (6) CLL (chronic lymphocytic leukemia) Current Visit: No Status: Chronic Assessment and plan: Stable (7) DM2 (diabetes mellitus, type 2) Current Visit: Yes Status: Chronic Assessment and plan: Continue sliding scale insulin Accu-Cheks have been slightly elevated, likely account of steroids that were started yesterday will check insulin requirements tomorrow and adjust accordingly Qualifiers: Diabetes mellitus prison insulin use: with prison use Diabetes mellitus complication status: with kidney complications Diabetes mellitus complication detail: with chronic kidney disease Chronic kidney disease stage : stage 3 (moderate) Qualified Code(s): E11.22 - Type 2 diabetes mellitus with diabetic chronic kidney disease; N18.3 - Chronic kidney disease, stage 3 ( moderate); N18.3 - Chronic kidney disease, stage 3 (moderate); Z79.4 - river rafting guide (current) use of insulin; Z79.4 - skilled nursing (current) use of insulin; Z79.4 - river rafting guide (current) use of insulin; Z79.4 - river rafting guide (current) use of insulin (8) DVT prophylaxis Current Visit: Yes Status: Acute Assessment and plan: Heparin SQ TID encourage ambulation (9) HTN (hypertension) Current Visit: No Status: Chronic Assessment and plan: Controlled, continue home medications Qualifiers: Hypertension type: essential hypertension Qualified Code(s): I10 - Essential (primary) hypertension (10) Obesity (BMI 30-39.9) Current Visit: No Status: Chronic - Subjective Interval history: Patient does not feel much better than she did yesterday. She does state she has had improvement in her cough, though reports continuing fevers. She denies any change in her dyspnea. She denies chest pain, abdominal pain, nausea, or vomiting - Constitutional Vitals: Temp Pulse Resp BP Pulse Ox 98.9 F 92 18 142/77 95 09/13/17 04:46 09/13/17 04:46 09/13/17 07:26 09/13/17 04:46 09/13/17 07:26 General appearance: Present: A&O X 3, no acute distress Exam: General: Cooperative, pleasant, no acute distress, alert and oriented 3, answers questions appropriately HEENT: Normocephalic, atraumatic, Conjunctiva pink, sclera anicteric, oral mucosa moist Respiratory: No accessory muscle usage, no wheezing on auscultation, left lower lobe Rales present Cardiovascular: Regular rate and rhythm, S1 and S2 present, no murmurs/rubs/ gallops/clicks appreciated GI/abdominal: Nondistended, nontender, soft, normal bowel sounds, no peritoneal signs Extremities: No calf tenderness, mild pedal edema appreciated, warm, lower extremity pulses palpable and symmetrical Neurological: Alert and oriented 3, no facial droop, no focal deficits Skin: Diaphoretic, intact, normal color Internal Medicine: Result - Labs CBC & Chem 7: 09/13/17 04:32 09/13/17 04:32 Labs: Short CBC 09/13/17 Range/Units 04:32 WBC 7.6 (4.3-11.1) K/mcL Hgb 10.5 L (11.5-15.4) g/dL Hct 33.0 L (35.3-44.9) % Plt Count 95 L (140-400) K/mcL Neutrophils # 4.1 (1.6-8.9) K/mcL BMP 09/13/17 04:32 Sodium 136 Potassium 4.1 Chloride 101 Carbon Dioxide 25 BUN 13 Creatinine 0.88 Glucose 404 H Calcium 8.7 Consult Discharge Plan - Plan Referrals: Mariaelena Vasquez, INTERLIBRARY LOAN SERVICES LIBRARIAN [Primary Care Provider] - <Akash Mckeon - Last Filed: 09/13/17 19:30> Date of Encounter: 09/13/17 - Constitutional Vitals: Temp Pulse Resp BP Pulse Ox 99.5 F 101 18 121/72 95 09/13/17 18:54 09/13/17 18:54 09/13/17 18:54 09/13/17 18:54 09/13/17 18:54 Internal Medicine: Result - Labs CBC & Chem 7: 09/13/17 04:32 09/13/17 10:05 Labs: Short CBC 09/13/17 Range/Units 04:32 WBC 7.6 (4.3-11.1) K/mcL Hgb 10.5 L (11.5-15.4) g/dL Hct 33.0 L (35.3-44.9) % Plt Count 95 L (140-400) K/mcL Neutrophils # 4.1 (1.6-8.9) K/mcL [facility] [place] 09/13/17 09/13/17 04:32 10:05 Sodium 136 136 Potassium 4.1 3.8 Chloride 101 100 Carbon Dioxide 25 24 BUN 13 15 Creatinine 0.88 0.94 Glucose 404 H 500 H* Calcium 8.7 8.8 Cardiac Enzymes 09/13/17 Range/Units 10:05 Troponin I < 0.03 (< 0.04) ng/mL Liver Function 09/13/17 Range/Units 10:05 Total Bilirubin 0.4 (0.3-1.0) mg/dL AST 11 L (13-39) Units/L ALT 8 (7-52) Units/L Alkaline Phosphatase 76 (34-104) Units/L Albumin 3.5 (3.5-5.7) g/dL - ABG Interpretation ABG results: PT/INR, D-dimer D-Dimer 1029 ng/mLFEU (0-500) H 09/13/17 10:05 - Impressions Impressions Chest X-Ray 09/13/17 09:36 IMPRESSION: Persistent bilateral airspace disease. D/ / 09/13/2017 16:36:25 Robbie Hess MD / matt Interpreting Provider: Robbie Hess MD Chest CTA 09/13/17 13:01 IMPRESSION: 1. No evidence of pulmonary embolus to the level of the proximal segmental branches. More distal branches are not well seen due to motion which degrades image quality. 2. Peribronchovascular ground-glass opacities in the lung bases bilaterally and centrilobular nodules in the left upper lobe and right upper lobe. Appearance is suggestive of an infectious or inflammatory process. Please correlate with clinical symptoms of pneumonia. 3. Mediastinal, axillary, submental/submandibular, and upper abdominal lymphadenopathy in keeping with clinical history of CLL. Degree of adenopathy has not significantly changed since prior exam of May 13, 2017. D/ / 09/13/2017 14:36:54 Edmond Hayden MD / grisel Interpreting Provider: Edmond Hayden MD - Attending Attestation I performed a [id number] diagnostic evaluation of this patient and my medical decision-making was reviewed with the Resident Physician, Dr Sean Medrano. I agree with the documented findings, disposition and treatment plan as described except to the extent set forth below. Subjective: Patient reports severe sharp chest pain and upper abdominal pain this morning. She is tearful. Physical exam: Gen: Anxious, tearful1, AAOx3 Heart: RRR, S1S2, no murmurs Lungs: CTABL Abdomen: S, NT, + bowel sounds Assessment and plan: For chest pain we will check EKG. This shows sinus tachycardia with ST depressions in lateral leads. Personally reviewed. To evaluate chest pain we checked troponin, d-dimer, check chest x-ray. Check lipase and LFTs for abdominal pain. Troponin was negative. D-dimer was elevated. CT angiogram ruled out PE. Findings consistent with pneumonia. Lipase and LFTs within normal limits. Akash Mckeon MD
[2017-09-13] MEDS: Insulin LISPRO 300 UNITS/3 ML VIAL SQ SCH ×6 (08:43→20:15)
[2017-09-13] MEDS ORDERED: Maalox Oral Soln 30 mL PO ONE (09:30)
[2017-09-13] MEDS ORDERED: D5% in Water 1,000 ML IVC PRN (09:39)
[2017-09-13] MEDS: Azithromycin 500 MG in D5% in Water 250 ML IVPB SCH ×2 (10:18→17:23)
[2017-09-13] MEDS: cefTRIAXone 2,000 MG in Water for inj. (sterile) 20 ML 20 ML IVP SCH ×3 (10:19→18:45)
[2017-09-13] MEDS: Cyanocobalamin (B-12) 1,000 MCG TABLET PO SCH (10:20)
[2017-09-13] MEDS: Famotidine 20 MG TABLET PO SCH (10:20)
[2017-09-13] MEDS: Topiramate 25 MG TABLET PO SCH ×2 (10:20→21:06)
[2017-09-13] MEDS: *HR* Pioglitazone 15 MG TABLET PO SCH (10:20)
[2017-09-13] MEDS: Aspirin 81 MG TAB.CHEW PO SCH (10:20)
[2017-09-13] MEDS: Pregabalin 75 MG CAPSULE PO SCH ×3 (10:21→20:15)
[2017-09-13] MEDS: Folic Acid 1 MG TABLET PO SCH (10:21)
[2017-09-13] MEDS: Loratadine 10 MG TABLET PO SCH (10:21)
[2017-09-13] MEDS: Metoprolol XL (24 HR) Succ 25 MG TAB.ER.24H PO SCH (10:21)
[2017-09-13] MEDS: Magnesium Oxide 400 MG TABLET PO SCH (10:21)
[2017-09-13] MEDS: traMADol 50 MG TABLET PO SCH ×3 (10:21→20:15)
[2017-09-13] MEDS: (Linagliptin [Tradjenta] 5 MG) PO SCH (10:22)
[2017-09-13] MEDS: Fluticasone Propionate Nasal 50 MCG/SPRAY BOTTLE NS SCH (10:22)
[2017-09-13 10:45] LABS: Alanine Aminotransferase 8 Units/L (7-52); Albumin 3.5 g/dL (3.5-5.7); Albumin/Globulin Ratio 1.5 (1.1-2.2); Alkaline Phosphatase 76 Units/L (34-104); Aspartate Amino Transferase 11 Units/L (13-39); BUN/Creatinine Ratio 16 (6-26); Bilirubin,Total 0.4 mg/dL (0.3-1.0); Blood Urea Nitrogen 15 mg/dL (8-23); Calcium 8.8 mg/dL (8.6-10.3); Carbon Dioxide 24 mEq/L (23-29); Chloride 100 mEq/L (98-107); Globulin 2.4 g/dL (2.4-3.5); Glucose 500 mg/dL (70-105); Osmolality,Calculated 305 (280-300); Potassium 3.8 mEq/L (3.5-5.1); Sodium 136 mEq/L (136-145); Total Protein 5.9 g/dL (6.4-8.9); eGFR For African Americans > 60 (> 60); eGFR For Non-African Americans 60 (> 60)
[2017-09-13] MEDS: Benzonatate 100 MG CAPSULE PO PRN (13:25)
[2017-09-13] MEDS ORDERED: Ondansetron ODT 4 MG TAB.RAPDIS SL PRN (16:13)
[2017-09-13] MEDS ORDERED: predniSONE 20 MG TABLET PO SCH (16:15)
[2017-09-13] MEDS ORDERED: cefTRIAXone 2,000 MG in Water for inj. (sterile) 20 ML IVP SCH (18:00)
[2017-09-13] MEDS: Primidone 50 MG TABLET PO SCH (20:15)
[2017-09-13] MEDS ORDERED: Insulin DETEMIR 100 UNIT/ML X5UNITS SQ SCH (21:00)
[2017-09-13] MEDS ORDERED: Cefdinir 300 MG CAPSULE PO SCH (21:00)
[2017-09-13] MEDS: LIXISENATIDE SQ SCH (21:08)
[2017-09-13] MEDS: INSULIN GLARGINE SQ SCH (21:08)
[2017-09-14] MEDS ORDERED: MethylPREDNISolone 40 MG/ML VIAL IVP SCH
[2017-09-14] MEDS: Ipratropium/Albuterol Neb 3 ML IH SCH ×6 (00:02→19:50)
[2017-09-14] MEDS: Pregabalin 50 MG CAPSULE PO SCH ×4 (01:04→21:36)
[2017-09-14] MEDS: MethylPREDNISolone 40 MG/ML VIAL IVP SCH ×3 (01:12→17:22)
[2017-09-14] MEDS: *HR* Heparin 5,000 UNIT/ML VIAL SQ SCH ×4 (01:12→21:37)
[2017-09-14 06:03] LABS: Basophils % 0.1 %; Hemoglobin 10.3 g/dL (11.5-15.4); Immature Granulocytes % 0.7 % (0-4); Lymphocytes # 3.8 K/mcL (0.6-4.6); Mean Corpuscular HGB Conc 32.2 g/dL (31.6-35.5); Mean Corpuscular Hemoglobin 28.1 pg (28.0-33.3); Mean Corpuscular Volume 87.4 fL (83.0-100.0); Mean Platelet Volume 11.6 fL (9.4-12.4); Monocytes # 0.4 K/mcL (0.0-1.3); Monocytes % 3.9 %; Platelet Count 111 K/mcL (140-400); Red Blood Count 3.66 M/mcL (3.82-4.97); Red Cell Distribution Width 13.9 % (11.5-14.5); Segmented Neutrophils % 55.3 %
[2017-09-14 06:05] LABS: Neutrophils # 5.3 K/mcL (1.6-8.9)
[2017-09-14 06:18] LABS: Platelet Estimate Decreased (Normal); Reactive Lymphocytes Present (Not Present)
[2017-09-14] MEDS: Magnesium Oxide 400 MG TABLET PO SCH (07:57)
[2017-09-14] MEDS: Cyanocobalamin (B-12) 1,000 MCG TABLET PO SCH (07:57)
[2017-09-14] MEDS: Folic Acid 1 MG TABLET PO SCH (07:57)
[2017-09-14] MEDS: *HR* Pioglitazone 15 MG TABLET PO SCH (07:57)
[2017-09-14] MEDS: Topiramate 25 MG TABLET PO SCH ×2 (07:57→21:36)
[2017-09-14] MEDS: Metoprolol XL (24 HR) Succ 25 MG TAB.ER.24H PO SCH (07:58)
[2017-09-14] MEDS: Aspirin 81 MG TAB.CHEW PO SCH (07:58)
[2017-09-14] MEDS: Famotidine 20 MG TABLET PO SCH (07:58)
[2017-09-14] MEDS: traMADol 50 MG TABLET PO SCH (07:58)
[2017-09-14] MEDS: Loratadine 10 MG TABLET PO SCH (07:58)
[2017-09-14] MEDS: Fluticasone Propionate Nasal 50 MCG/SPRAY BOTTLE NS SCH (08:04)
[2017-09-14] MEDS: (Linagliptin [Tradjenta] 5 MG) PO SCH (08:04)
[2017-09-14] MEDS: Insulin LISPRO 300 UNITS/3 ML VIAL SQ SCH ×7 (08:04→21:37)
--- NOTE | 2017-09-14 10:07 | Internal Med Progress Note ---
<Jose Manuel Bailey - Last Filed: 09/14/17 15:22> Date of Encounter: 09/14/17 - Constitutional Vitals: Temp Pulse Resp BP Pulse Ox 98.2 F 86 17 123/72 95 09/14/17 15:00 09/14/17 15:00 09/14/17 15:00 09/14/17 15:00 09/14/17 15:00 Internal Medicine: Result - Labs CBC & Chem 7: 09/14/17 04:01 09/13/17 10:05 Labs: Short CBC 09/14/17 Range/Units 04:01 WBC 9.5 (4.3-11.1) K/mcL Hgb 10.3 L (11.5-15.4) g/dL Hct 32.0 L (35.3-44.9) % Plt Count 111 L (140-400) K/mcL Neutrophils # 5.3 (1.6-8.9) K/mcL - ABG Interpretation ABG results: PT/INR, D-dimer D-Dimer 1029 ng/mLFEU (0-500) H 09/13/17 10:05 Consult Discharge Plan - Plan Referrals: Mariaelena Vasquez, AUTOMOBILE ASSEMBLY SUPERVISOR [Primary Care Provider] - (web request sent on 09/14/17 ) - Attending Attestation I performed an independent interview and examine this patient. I agree with the findings, assessment, and plan of Dr. Medrano, internal medicine resident. Recent is improving but still remains on 4 L of oxygen per nasal cannula. Will change antibiotics to oral. Add Mucinex. Physical therapy. Continue to wean oxygen as able. We will also transition steroids to oral as well. It is possible patient may need to go home with supplemental oxygen. All else as outlined above. <Mikey Medrano - Last Filed: 09/14/17 16:13> Date of Encounter: 09/14/17 Time of Encounter: 09:25 - Assessment and plan (1) Community acquired pneumonia Current Visit: No Status: Acute Assessment and plan: Patient with productive cough for one week and shortness of breath 1 day Findings concerning for infiltrate on x-ray Improvement in wheezing today Rales on auscultation Improvement in fevers Will continue ceftriaxone and azithromycin started in the ER community acquired pneumonia Day 3 of 7 We will continue breathing treatments with DuoNeb's We will start patient on oral prednisone today Continue Tessalon Acetaminophen for continued fevers We will consider changing antibiotics to orals tomorrow Qualifiers: Laterality: left Lung location: unspecified part of lung Qualified Code(s ): J18.9 - Pneumonia, unspecified organism (2) Hypokalemia Current Visit: Yes Status: Acute Assessment and plan: Electrolytes improved 09/13/17 (3) Hypomagnesemia Current Visit: Yes Status: Acute Assessment and plan: As above (4) Hypophosphatemia Current Visit: Yes Status: Acute Assessment and plan: As above (5) Anemia Current Visit: Yes Status: Acute Assessment and plan: Hemoglobin stable will continue to monitor Qualifiers: Anemia type: other cause Other causes of anemia: chronic disease, neoplastic Qualified Code(s): D63.0 - Anemia in neoplastic disease (6) CLL (chronic lymphocytic leukemia) Current Visit: No Status: Chronic Assessment and plan: Stable (7) DM2 (diabetes mellitus, type 2) Current Visit: Yes Status: Chronic Assessment and plan: Continue sliding scale insulin Accu-Cheks have been slightly elevated, likely account of steroids Patient started on 16 units Levemir twice a day 6 units 3 times a day with meals insulin Sliding scale changed to high-dose will check insulin requirements tomorrow and adjust accordingly Qualifiers: Diabetes mellitus fpc insulin use: with long term care pharmacist use Diabetes mellitus complication status: with kidney complications Diabetes mellitus complication detail: with chronic kidney disease Chronic kidney disease stage : stage 3 (moderate) Qualified Code(s): E11.22 - Type 2 diabetes mellitus with diabetic chronic kidney disease; N18.3 - Chronic kidney disease, stage 3 ( moderate); N18.3 - Chronic kidney disease, stage 3 (moderate); Z79.4 - detention (current) use of insulin; Z79.4 - detention (current) use of insulin; Z79.4 - detention (current) use of insulin; Z79.4 - detention (current) use of insulin (8) DVT prophylaxis Current Visit: Yes Status: Acute Assessment and plan: Heparin SQ TID encourage ambulation (9) HTN (hypertension) Current Visit: No Status: Chronic Assessment and plan: Controlled, continue home medications Qualifiers: Hypertension type: essential hypertension Qualified Code(s): I10 - Essential (primary) hypertension (10) Obesity (BMI 30-39.9) Current Visit: No Status: Chronic - Subjective Interval history: She does feel better today, and feels like she is ready to go home. She does report having continued watery diarrhea however. She does still have a cough that is occasionally productive of yellow mucus. She does report some improvement in her overall dyspnea and denies having chest pain, abdominal pain , nausea, or vomiting. - Constitutional Vitals: Temp Pulse Resp BP Pulse Ox 98.1 F 89 16 143/73 95 09/14/17 06:39 09/14/17 06:39 09/14/17 07:29 09/14/17 06:39 09/14/17 07:29 General appearance: Present: A&O X 3, no acute distress Exam: General: Cooperative, pleasant, no acute distress, alert and oriented 3, answers questions appropriately HEENT: Normocephalic, atraumatic, Conjunctiva pink, sclera anicteric, oral mucosa moist Respiratory: No accessory muscle usage, no wheezing on auscultation, left lower lobe Rales present Cardiovascular: Regular rate and rhythm, S1 and S2 present, no murmurs/rubs/ gallops/clicks appreciated GI/abdominal: Nondistended, nontender, soft, normal bowel sounds, no peritoneal signs Extremities: No calf tenderness, mild pedal edema appreciated, warm, lower extremity pulses palpable and symmetrical Neurological: Alert and oriented 3, no facial droop, no focal deficits Skin: Diaphoretic, intact, normal color Internal Medicine: Result - Labs CBC & Chem 7: 09/14/17 04:01 09/13/17 10:05 Labs: Short CBC 09/14/17 Range/Units 04:01 WBC 9.5 (4.3-11.1) K/mcL Hgb 10.3 L (11.5-15.4) g/dL Hct 32.0 L (35.3-44.9) % Plt Count 111 L (140-400) K/mcL Neutrophils # 5.3 (1.6-8.9) K/mcL - ABG Interpretation ABG results: PT/INR, D-dimer D-Dimer 1029 ng/mLFEU (0-500) H 09/13/17 10:05
[2017-09-14] MEDS: Furosemide 20 MG TABLET PO SCH (11:15)
[2017-09-14] MEDS: Insulin DETEMIR 100 UNIT/ML X5UNITS SQ SCH ×2 (11:15→21:36)
[2017-09-14] MEDS: Azithromycin 500 MG in D5% in Water 250 ML IVPB SCH (11:15)
--- NOTE | 2017-09-14 12:19 | Electrocardiograph Report ---
[address] [address] Test Date: 2017-09-11 Pat Name: Carmen Vargas Department: 104 Room: 2A43 Gender: F Practice Assistant: SAHIL : 1950 Requested By: Sony Betancourt Order Number: [id number] Reading MD: Westley Ayers Measurements Intervals [place] Rate: 106 P: 43 MN: 130 QRS: 7 QRSD: 111 T: 49 QT: 330 QTc: 392 Interpretive Statements SINUS TACHYCARDIA LOW QRS VOLTAGE IN PRECORDIAL LEADS Poor R wave progression Electronically Signed On 09-14-2017 12:17:48 EDT by Westley Ayers
--- NOTE | 2017-09-14 12:40 | Electrocardiograph Report ---
[place] [address] Test Date: 2017-09-13 Pat Name: Carmen Vargas Department: 112 Room: 2A43 Gender: F Curtain Cleaner: : 1950 Requested By: Akash Mckeon Order Number: [id number] Reading MD: Westley Ayers Measurements Intervals [place] Rate: 102 P: 79 MO: 140 QRS: 42 QRSD: 106 T: 64 QT: 330 QTc: 389 Interpretive Statements SINUS TACHYCARDIA LOW QRS VOLTAGE IN PRECORDIAL LEADS Poor R wave progression Electronically Signed On 09-14-2017 12:39:13 EDT by Westley Ayers
[2017-09-14] MEDS: cefTRIAXone 2,000 MG in Water for inj. (sterile) 20 ML 20 ML IVP SCH (17:22)
[2017-09-14] MEDS: Primidone 50 MG TABLET PO SCH (21:36)
[2017-09-15] MEDS: Ipratropium/Albuterol Neb 3 ML IH SCH ×7 (00:14→23:46)
[2017-09-15] MEDS: MethylPREDNISolone 40 MG/ML VIAL IVP SCH ×4 (00:24→23:54)
[2017-09-15] MEDS: *HR* Heparin 5,000 UNIT/ML VIAL SQ SCH ×3 (05:20→21:10)
[2017-09-15] MEDS: traMADol 50 MG TABLET PO PRN ×2 (05:21→21:09)
[2017-09-15] MEDS: Benzonatate 100 MG CAPSULE PO PRN ×2 (05:21→17:06)
[2017-09-15 05:25] LABS: Basophils % 0.1 %; Hematocrit 33.1 % (35.3-44.9); Hemoglobin 10.3 g/dL (11.5-15.4); Immature Granulocytes % 1.3 % (0-4); Lymphocytes # 6.1 K/mcL (0.6-4.6); Lymphocytes % 60.9 %; Mean Corpuscular HGB Conc 31.1 g/dL (31.6-35.5); Mean Corpuscular Hemoglobin 27.7 pg (28.0-33.3); Mean Platelet Volume 11.4 fL (9.4-12.4); Monocytes # 0.3 K/mcL (0.0-1.3); Monocytes % 2.5 %; Neutrophils # 3.5 K/mcL (1.6-8.9); Platelet Count 113 K/mcL (140-400); Red Blood Count 3.72 M/mcL (3.82-4.97); Red Cell Distribution Width 13.6 % (11.5-14.5); Segmented Neutrophils % 35.2 %
[2017-09-15 05:44] LABS: BUN/Creatinine Ratio 27 (6-26); Blood Urea Nitrogen 25 mg/dL (8-23); Calcium 8.9 mg/dL (8.6-10.3); Carbon Dioxide 27 mEq/L (23-29); Chloride 100 mEq/L (98-107); Glucose 379 mg/dL (70-105); Magnesium 1.9 mg/dL (1.6-2.6); Osmolality,Calculated 302 (280-300); Phosphorous 3.2 mg/dL (2.7-4.5); Potassium 4.4 mEq/L (3.5-5.1); Sodium 136 mEq/L (136-145); eGFR For African Americans > 60 (> 60); eGFR For Non-African Americans > 60 (> 60)
[2017-09-15] MEDS: Fluticasone Propionate Nasal 50 MCG/SPRAY BOTTLE NS SCH (08:11)
[2017-09-15] MEDS: Pregabalin 50 MG CAPSULE PO SCH ×3 (08:11→21:09)
[2017-09-15] MEDS: Famotidine 20 MG TABLET PO SCH (08:12)
[2017-09-15] MEDS: Cyanocobalamin (B-12) 1,000 MCG TABLET PO SCH (08:14)
[2017-09-15] MEDS: Folic Acid 1 MG TABLET PO SCH (08:14)
[2017-09-15] MEDS: Topiramate 25 MG TABLET PO SCH ×2 (08:14→21:10)
[2017-09-15] MEDS: Furosemide 20 MG TABLET PO SCH (08:15)
[2017-09-15] MEDS: Aspirin 81 MG TAB.CHEW PO SCH (08:15)
[2017-09-15] MEDS: Magnesium Oxide 400 MG TABLET PO SCH (08:15)
[2017-09-15] MEDS: *HR* Pioglitazone 15 MG TABLET PO SCH (08:15)
[2017-09-15] MEDS: Metoprolol XL (24 HR) Succ 25 MG TAB.ER.24H PO SCH (08:15)
[2017-09-15] MEDS: Loratadine 10 MG TABLET PO SCH (08:16)
[2017-09-15] MEDS: Insulin LISPRO 300 UNITS/3 ML VIAL SQ SCH ×7 (08:16→21:10)
[2017-09-15] MEDS ORDERED: Azithromycin 250 MG TABLET PO SCH (09:00)
[2017-09-15] MEDS: Insulin DETEMIR 100 UNIT/ML X5UNITS SQ SCH ×2 (09:03→21:10)
--- NOTE | 2017-09-15 15:30 | Internal Med Progress Note ---
<LeoJose Manuel Yogesh - Last Filed: 09/15/17 17:38> Date of Encounter: 09/15/17 - Constitutional Vitals: Temp Pulse Resp BP Pulse Ox 97.8 F 88 23 131/75 95 09/15/17 15:10 09/15/17 15:10 09/15/17 16:21 09/15/17 15:10 09/15/17 16:21 Internal Medicine: Result - Labs CBC & Chem 7: 09/15/17 04:51 09/15/17 04:51 Labs: Short CBC 09/15/17 Range/Units 04:51 WBC 9.9 (4.3-11.1) K/mcL Hgb 10.3 L (11.5-15.4) g/dL Hct 33.1 L (35.3-44.9) % Plt Count 113 L (140-400) K/mcL Neutrophils # 3.5 (1.6-8.9) K/mcL BMP 09/15/17 04:51 Sodium 136 Potassium 4.4 Chloride 100 Carbon Dioxide 27 BUN 25 H Creatinine 0.91 Glucose 379 H Calcium 8.9 - ABG Interpretation ABG results: PT/INR, D-dimer D-Dimer 1029 ng/mLFEU (0-500) H 09/13/17 10:05 Consult Discharge Plan - Plan Referrals: Mariaelena Vasquez CNP [Primary Care Provider] - 09/21/17 3:00 pm ( ) - Attending Attestation I perormed an independent interview and exam of this pt. I discussed the case with Dr. Chino, Internal Medicine Sewing Machine Operator Zipper. I agree with his findings, assessment, and plan. Pt continues to improve slowly. Cough is better and less bothersome. Antic dc in AM. All else as per the above note. <Mike Chino - Last Filed: 09/15/17 18:05> Date of Encounter: 09/15/17 Time of Encounter: 17:54 - Assessment and plan (1) Multifocal pneumonia Current Visit: Yes Status: Acute Assessment and plan: Patient had 3 days of Rocephin IV. We will start azithromycin tomorrow orally. Patient improving clinically. However, she is still slowly progressing back to baseline. Still on 3 L of oxygen via nasal cannula and not on oxygen at home. (2) Anemia Current Visit: Yes Status: Acute Assessment and plan: Hemoglobin today was 10.3. Stable Qualifiers: Anemia type: other cause Other causes of anemia: chronic disease, neoplastic Qualified Code(s): D63.0 - Anemia in neoplastic disease (3) CLL (chronic lymphocytic leukemia) Current Visit: No Status: Chronic Assessment and plan: Stable. (4) HTN (hypertension) Current Visit: No Status: Chronic Assessment and plan: Continue home medications Qualifiers: Hypertension type: essential hypertension Qualified Code(s): I10 - Essential (primary) hypertension (5) Obesity (BMI 30-39.9) Current Visit: No Status: Chronic (6) Type 2 diabetes mellitus Current Visit: No Status: Chronic Assessment and plan: Hyperglycemia throughout her stay. We will consider more strict insulin management tomorrow morning. Qualifiers: Diabetes mellitus bed bug exterminator insulin use: with bed bug exterminator use Diabetes mellitus complication status: with kidney complications Diabetes mellitus complication detail: with chronic kidney disease Chronic kidney disease stage : stage 3 (moderate) Qualified Code(s): E11.22 - Type 2 diabetes mellitus with diabetic chronic kidney disease; N18.3 - Chronic kidney disease, stage 3 ( moderate); N18.3 - Chronic kidney disease, stage 3 (moderate); Z79.4 - group home (current) use of insulin; Z79.4 - group home (current) use of insulin; Z79.4 - group home (current) use of insulin; Z79.4 - medical terminologist (current) use of insulin (7) DVT prophylaxis Current Visit: Yes Status: Acute Assessment and plan: Heparin 5000 units subcutaneous every 8 hours. - Subjective Interval history: Patient hospitalized for community-acquired pneumonia. 3 days of Rocephin IV. Patient's been on oxygen via nasal cannula. Oxygen saturation 95% on 3 L. Patient not on oxygen at home. She states she is feeling slightly better, but cannot stop coughing. - Constitutional Vitals: Temp Pulse Resp BP Pulse Ox 97.8 F 88 17 131/75 95 09/15/17 15:10 09/15/17 15:10 09/15/17 15:10 09/15/17 15:10 09/15/17 15:10 General appearance: Present: A&O X 3, no acute distress - Head Head exam: Present: atraumatic, normocephalic - ENT ENT exam: Present: mucous membranes moist - Neck Neck exam general surgery: Present: supple, trachea midline - Respiratory Respiratory exam: Absent: accessory muscle use - Cardiovascular Cardiovascular exam: Present: RRR, +S1, +S2. Absent: JVD - GI/Abdominal GI/Abdominal exam: Present: soft, no peritoneal signs. Absent: distended, firm , guarding, rebound - Extremities Exam Extremities exam: Present: pedal edema (1+ pitting bilaterally) Internal Medicine: Result - Labs CBC & Chem 7: 09/15/17 04:51 09/15/17 04:51 Labs: Short CBC 09/15/17 Range/Units 04:51 WBC 9.9 (4.3-11.1) K/mcL Hgb 10.3 L (11.5-15.4) g/dL Hct 33.1 L (35.3-44.9) % Plt Count 113 L (140-400) K/mcL Neutrophils # 3.5 (1.6-8.9) K/mcL BMP 09/15/17 04:51 Sodium 136 Potassium 4.4 Chloride 100 Carbon Dioxide 27 BUN 25 H Creatinine 0.91 Glucose 379 H Calcium 8.9 - ABG Interpretation ABG results: PT/INR, D-dimer D-Dimer 1029 ng/mLFEU (0-500) H 09/13/17 10:05
[2017-09-15] MEDS: cefTRIAXone 2,000 MG in Water for inj. (sterile) 20 ML 20 ML IVP SCH (16:59)
--- NOTE | 2017-09-15 19:20 | Electrocardiograph Report ---
[place] [id number] Test Date: 2017-09-14 Pat Name: Carmne Vargas Department: 112 Room: 2A43 Gender: F Overcoil Stepper: : 1950 Requested By: Jose Manuel Bailey Order Number: [id number] Reading MD: Westley Ayers Measurements Intervals [place] Rate: 103 P: 67 NE: 151 QRS: 57 QRSD: 104 T: 50 QT: 347 QTc: 407 Interpretive Statements SINUS TACHYCARDIA LOW QRS VOLTAGE IN PRECORDIAL LEADS ANTEROSEPTAL MYOCARDIAL INFARCTION, PROBABLY OLD Electronically Signed On 09-15-2017 19:19:07 EDT by Westley Ayers
[2017-09-15] MEDS: Primidone 50 MG TABLET PO SCH (21:10)
[2017-09-16] MEDS ORDERED: Insulin LISPRO 300 UNITS/3 ML VIAL SQ ONE ×2 (00:28→00:29)
[2017-09-16] MEDS: Benzonatate 100 MG CAPSULE PO PRN ×2 (00:36→21:48)
[2017-09-16] MEDS: Ipratropium/Albuterol Neb 3 ML IH SCH ×6 (04:41→23:02)
[2017-09-16] MEDS: *HR* Heparin 5,000 UNIT/ML VIAL SQ SCH ×3 (06:08→21:55)
[2017-09-16] MEDS: traMADol 50 MG TABLET PO PRN (06:08)
[2017-09-16 06:45] LABS: Basophils % 0.2 %; Hematocrit 34.3 % (35.3-44.9); Hemoglobin 11.1 g/dL (11.5-15.4); Immature Granulocytes % 1.7 % (0-4); Lymphocytes % 68.9 %; Mean Corpuscular HGB Conc 32.4 g/dL (31.6-35.5); Mean Corpuscular Hemoglobin 28.7 pg (28.0-33.3); Mean Corpuscular Volume 88.6 fL (83.0-100.0); Mean Platelet Volume 11.9 fL (9.4-12.4); Monocytes # 0.4 K/mcL (0.0-1.3); Monocytes % 2.2 %; Neutrophils # 4.7 K/mcL (1.6-8.9); Nucleated Red Blood Cells 0.2 /100 WBC (0); Platelet Count 139 K/mcL (140-400); Red Blood Count 3.87 M/mcL (3.82-4.97); Red Cell Distribution Width 13.6 % (11.5-14.5)
[2017-09-16 06:58] LABS: BUN/Creatinine Ratio 32 (6-26); Blood Urea Nitrogen 30 mg/dL (8-23); Calcium 9.3 mg/dL (8.6-10.3); Carbon Dioxide 29 mEq/L (23-29); Chloride 99 mEq/L (98-107); Glucose 398 mg/dL (70-105); Osmolality,Calculated 307 (280-300); Potassium 4.6 mEq/L (3.5-5.1); Sodium 137 mEq/L (136-145); eGFR For African Americans > 60 (> 60); eGFR For Non-African Americans 60 (> 60)
[2017-09-16 07:31] LABS: Smudge Cells Present (Not Present)
[2017-09-16 07:32] LABS: Platelet Estimate Slight Decrease (Normal); Reactive Lymphocytes Present (Not Present)
[2017-09-16] MEDS: *HR* Pioglitazone 15 MG TABLET PO SCH (08:22)
[2017-09-16] MEDS: Furosemide 20 MG TABLET PO SCH (08:22)
[2017-09-16] MEDS: Pregabalin 50 MG CAPSULE PO SCH ×3 (08:22→21:48)
[2017-09-16] MEDS: Magnesium Oxide 400 MG TABLET PO SCH (08:22)
[2017-09-16] MEDS: Folic Acid 1 MG TABLET PO SCH (08:22)
[2017-09-16] MEDS: Topiramate 25 MG TABLET PO SCH ×2 (08:22→21:48)
[2017-09-16] MEDS: Loratadine 10 MG TABLET PO SCH (08:23)
[2017-09-16] MEDS: Aspirin 81 MG TAB.CHEW PO SCH (08:23)
[2017-09-16] MEDS: Metoprolol XL (24 HR) Succ 25 MG TAB.ER.24H PO SCH (08:23)
[2017-09-16] MEDS: Cyanocobalamin (B-12) 1,000 MCG TABLET PO SCH (08:24)
[2017-09-16] MEDS: Insulin LISPRO 300 UNITS/3 ML VIAL SQ SCH ×7 (08:25→21:53)
[2017-09-16] MEDS: Fluticasone Propionate Nasal 50 MCG/SPRAY BOTTLE NS SCH (08:26)
[2017-09-16] MEDS: Famotidine 20 MG TABLET PO SCH (08:27)
[2017-09-16] MEDS: MethylPREDNISolone 40 MG/ML VIAL IVP SCH (08:59)
[2017-09-16] MEDS ORDERED: Azithromycin 250 MG TABLET PO SCH (09:00)
--- NOTE | 2017-09-16 10:35 | Internal Med Progress Note ---
<Mike Chino - Last Filed: 09/16/17 15:05> Date of Encounter: 09/16/17 Time of Encounter: 10:35 - Assessment and plan (1) Multifocal pneumonia Current Visit: Yes Status: Acute Assessment and plan: Patient had 3 days of Rocephin IV. Had 5 days of azithromycin. Patient improving clinically. However, she is still slowly progressing back to baseline. Still on 3 L of oxygen via nasal cannula and not on oxygen at home. We will perform a walking test to see if patient can qualify for oxygen at home. (2) Anemia Current Visit: Yes Status: Acute Assessment and plan: Hemoglobin today was 11.1. Stable Qualifiers: Anemia type: other cause Other causes of anemia: chronic disease, neoplastic Qualified Code(s): D63.0 - Anemia in neoplastic disease (3) CLL (chronic lymphocytic leukemia) Current Visit: No Status: Chronic Assessment and plan: Stable. (4) HTN (hypertension) Current Visit: No Status: Chronic Assessment and plan: Continue home medications Qualifiers: Hypertension type: essential hypertension Qualified Code(s): I10 - Essential (primary) hypertension (5) Obesity (BMI 30-39.9) Current Visit: No Status: Chronic (6) Type 2 diabetes mellitus Current Visit: No Status: Chronic Assessment and plan: Hyperglycemia throughout her stay. We will give home insulin dosages as patient is back to her normal diet. Qualifiers: Diabetes mellitus terminal make up operator insulin use: with terminal make up operator use Diabetes mellitus complication status: with kidney complications Diabetes mellitus complication detail: with chronic kidney disease Chronic kidney disease stage : stage 3 (moderate) Qualified Code(s): E11.22 - Type 2 diabetes mellitus with diabetic chronic kidney disease; N18.3 - Chronic kidney disease, stage 3 ( moderate); N18.3 - Chronic kidney disease, stage 3 (moderate); Z79.4 - USP (current) use of insulin; Z79.4 - USP (current) use of insulin; Z79.4 - terminal clerk (current) use of insulin; Z79.4 - USP (current) use of insulin (7) DVT prophylaxis Current Visit: Yes Status: Acute Assessment and plan: Heparin 5000 units subcutaneous every 8 hours. - Subjective Interval history: Patient hospitalized for community-acquired pneumonia. 3 days of Rocephin IV. Patient's been on oxygen via nasal cannula. Oxygen saturation 95% on 3 L. Patient not on oxygen at home. She states she is feeling slightly better, but cannot stop coughing. This reported some left lower quadrant pain, but does report having small bowel movement and being constipated lately. Patient currently afebrile. However, she does have an increasing leukocytosis. Will give MiraLAX and see if this improves her symptoms. Reports no blood in stool. Denies any urinary symptoms. - Constitutional Vitals: Temp Pulse Resp BP Pulse Ox 97.6 F 80 16 155/81 95 09/16/17 07:01 09/16/17 07:01 09/16/17 07:22 09/16/17 07:01 09/16/17 07:22 General appearance: Present: A&O X 3, no acute distress - Head Head exam: Present: atraumatic, normal inspection - ENT ENT exam: Present: mucous membranes moist - Neck Neck exam general surgery: Present: supple, trachea midline - Respiratory Respiratory exam: Present: CTAB - Cardiovascular Cardiovascular exam: Present: +S1, +S2. Absent: diastolic murmur, JVD, systolic murmur - GI/Abdominal GI/Abdominal exam: Present: tenderness (Mild left lower quadrant), no peritoneal signs. Absent: rebound, rigid - Extremities Exam Additional comments: Bilateral erythema of his lower extremities consistent with venous stasis. 2+ pitting pedal edema. Internal Medicine: Result - Labs CBC & Chem 7: 09/16/17 06:24 09/16/17 06:24 Labs: Short CBC 09/16/17 Range/Units 06:24 WBC 17.4 H D (4.3-11.1) K/mcL Hgb 11.1 L (11.5-15.4) g/dL Hct 34.3 L (35.3-44.9) % Plt Count 139 L (140-400) K/mcL Neutrophils # 4.7 (1.6-8.9) K/mcL BMP 09/16/17 06:24 Sodium 137 Potassium 4.6 Chloride 99 Carbon Dioxide 29 BUN 30 H Creatinine 0.94 Glucose 398 H Calcium 9.3 - ABG Interpretation ABG results: PT/INR, D-dimer D-Dimer 1029 ng/mLFEU (0-500) H 09/13/17 10:05 Consult Discharge Plan - Plan Referrals: Mariaelena Vasquez, CLINICAL SCIENCE LIAISON [Primary Care Provider] - 09/21/17 3:00 pm ( ) <Jose Manuel Bailey - Last Filed: 09/16/17 17:16> Date of Encounter: 09/16/17 - Constitutional Vitals: Temp Pulse Resp BP Pulse Ox 98.0 F 92 17 121/69 96 09/16/17 16:19 09/16/17 16:19 09/16/17 16:19 09/16/17 16:19 09/16/17 16:19 Internal Medicine: Result - Labs CBC & Chem 7: 09/16/17 06:24 09/16/17 06:24 Labs: Short CBC 09/16/17 Range/Units 06:24 WBC 17.4 H D (4.3-11.1) K/mcL Hgb 11.1 L (11.5-15.4) g/dL Hct 34.3 L (35.3-44.9) % Plt Count 139 L (140-400) K/mcL Neutrophils # 4.7 (1.6-8.9) K/mcL BMP 09/16/17 06:24 Sodium 137 Potassium 4.6 Chloride 99 Carbon Dioxide 29 BUN 30 H Creatinine 0.94 Glucose 398 H Calcium 9.3 - ABG Interpretation ABG results: PT/INR, D-dimer D-Dimer 1029 ng/mLFEU (0-500) H 09/13/17 10:05 - Attending Attestation I performed an independent interview and examine this patient. I agree with the findings, assessment, and plan of Dr. Hazel, internal medicine. My input is reflected in his note. Recent white blood cell count did increase a day, although clinically she appears improved. We will keep her an additional day. She does have some left lower quadrant pain which may be due to constipation. Will try stool softeners. If does not improve or if white blood cell count continues to rise may need to image her abdomen with a CAT scan. All else as outlined in the above note. Exam: Gen. awake alert and oriented 3 no acute distress Neck is supple Lungs - faint crackles bilaterally Heart regular rate and rhythm without murmur Abdomen soft with normal active bowel sounds, some mild deep left lower quadrant tenderness to palpation. No rebound or guarding. Extremities 2+ edema bilaterally
[2017-09-16] MEDS: Insulin DETEMIR 100 UNIT/ML X5UNITS SQ SCH ×2 (12:44→21:55)
[2017-09-16] MEDS: Primidone 50 MG TABLET PO SCH (21:48)
[2017-09-17] MEDS: Ipratropium/Albuterol Neb 3 ML IH SCH ×5 (03:26→20:05)
[2017-09-17] MEDS: Benzonatate 100 MG CAPSULE PO PRN ×2 (06:08→17:04)
[2017-09-17] MEDS: *HR* Heparin 5,000 UNIT/ML VIAL SQ SCH ×3 (06:10→21:16)
[2017-09-17 07:25] LABS: BUN/Creatinine Ratio 31 (6-26); Blood Urea Nitrogen 26 mg/dL (8-23); Calcium 8.9 mg/dL (8.6-10.3); Carbon Dioxide 30 mEq/L (23-29); Chloride 104 mEq/L (98-107); Glucose 215 mg/dL (70-105); Osmolality,Calculated 303 (280-300); Sodium 141 mEq/L (136-145); eGFR For African Americans > 60 (> 60); eGFR For Non-African Americans > 60 (> 60)
[2017-09-17 09:12] LABS: Basophils % 0.4 %; Immature Granulocytes % 1.5 % (0-4); Nucleated Red Blood Cells 0.1 /100 WBC (0)
[2017-09-17 09:13] LABS: Basophils # 0.1 K/mcL (0.0-0.2); Eosinophils # 0.1 K/mcL (0.0-0.6); Eosinophils % 0.4 %; Hematocrit 38.4 % (35.3-44.9); Hemoglobin 11.8 g/dL (11.5-15.4); Lymphocytes % 72.4 %; Mean Corpuscular HGB Conc 30.7 g/dL (31.6-35.5); Mean Corpuscular Hemoglobin 27.7 pg (28.0-33.3); Mean Corpuscular Volume 90.1 fL (83.0-100.0); Mean Platelet Volume 11.2 fL (9.4-12.4); Monocytes # 0.7 K/mcL (0.0-1.3); Monocytes % 2.5 %; Platelet Count 151 K/mcL (140-400); Red Blood Count 4.26 M/mcL (3.82-4.97); Segmented Neutrophils % 22.8 %
[2017-09-17] MEDS: *HR* Pioglitazone 15 MG TABLET PO SCH (09:29)
[2017-09-17] MEDS: Aspirin 81 MG TAB.CHEW PO SCH (09:29)
[2017-09-17] MEDS: Cyanocobalamin (B-12) 1,000 MCG TABLET PO SCH (09:29)
[2017-09-17] MEDS: Metoprolol XL (24 HR) Succ 25 MG TAB.ER.24H PO SCH (09:29)
[2017-09-17] MEDS: Magnesium Oxide 400 MG TABLET PO SCH (09:30)
[2017-09-17] MEDS: Pregabalin 50 MG CAPSULE PO SCH ×3 (09:30→19:57)
[2017-09-17] MEDS: Loratadine 10 MG TABLET PO SCH (09:30)
[2017-09-17] MEDS: Folic Acid 1 MG TABLET PO SCH (09:30)
[2017-09-17] MEDS: Furosemide 20 MG TABLET PO SCH (09:30)
[2017-09-17] MEDS: Famotidine 20 MG TABLET PO SCH (09:30)
[2017-09-17] MEDS: Topiramate 25 MG TABLET PO SCH ×2 (09:30→19:57)
[2017-09-17] MEDS: Insulin DETEMIR 100 UNIT/ML X5UNITS SQ SCH ×2 (09:31→21:15)
[2017-09-17] MEDS: Fluticasone Propionate Nasal 50 MCG/SPRAY BOTTLE NS SCH (09:31)
[2017-09-17] MEDS: Insulin LISPRO 300 UNITS/3 ML VIAL SQ SCH ×7 (09:31→21:17)
[2017-09-17 09:46] LABS: Lymphocytes # 19.8 K/mcL (0.6-4.6); Neutrophils # 6.2 K/mcL (1.6-8.9); Platelet Estimate Normal (Normal); Smudge Cells Present (Not Present)
[2017-09-17] MEDS ORDERED: Insulin DETEMIR 100 UNIT/ML X5UNITS SQ ONE (09:48)
[2017-09-17] MEDS: Levofloxacin 750 MG/150 ML 750 MG/150 ML BAG IVPB SCH (12:03)
--- NOTE | 2017-09-17 13:10 | Internal Med Progress Note ---
<Mike Chino - Last Filed: 09/17/17 13:07> Date of Encounter: 09/17/17 Time of Encounter: 08:07 - Assessment and plan (1) Multifocal pneumonia Current Visit: Yes Status: Acute Assessment and plan: Patient had 3 days of Rocephin IV. Had 5 days of azithromycin. Patient has had a new leukocytosis from yesterday and this has increased today. Chest x- ray that was obtained reveals left lower lobe pneumonia. We will start Levaquin. We will obtain MRSA nasal swab, respiratory infection panel. Patient qualify for oxygen today. (2) Anemia Current Visit: Yes Status: Acute Assessment and plan: Hemoglobin today was 11.1. Stable Qualifiers: Anemia type: other cause Other causes of anemia: chronic disease, neoplastic Qualified Code(s): D63.0 - Anemia in neoplastic disease (3) CLL (chronic lymphocytic leukemia) Current Visit: No Status: Chronic Assessment and plan: Stable (4) HTN (hypertension) Current Visit: No Status: Chronic Assessment and plan: Continue home medications Qualifiers: Hypertension type: essential hypertension Qualified Code(s): I10 - Essential (primary) hypertension (5) Obesity (BMI 30-39.9) Current Visit: No Status: Chronic (6) Type 2 diabetes mellitus Current Visit: No Status: Chronic Assessment and plan: Currently on insulin. Increased Levemir yesterday. Patient taken 60 units of Levemir at home daily. Qualifiers: Diabetes mellitus terminal worker insulin use: with fdc use Diabetes mellitus complication status: with kidney complications Diabetes mellitus complication detail: with chronic kidney disease Chronic kidney disease stage : stage 3 (moderate) Qualified Code(s): E11.22 - Type 2 diabetes mellitus with diabetic chronic kidney disease; N18.3 - Chronic kidney disease, stage 3 ( moderate); N18.3 - Chronic kidney disease, stage 3 (moderate); Z79.4 - manager terminal (current) use of insulin; Z79.4 - jail (current) use of insulin; Z79.4 - manager terminal (current) use of insulin; Z79.4 - jail (current) use of insulin (7) DVT prophylaxis Current Visit: Yes Status: Acute Assessment and plan: Heparin 5000 units subcutaneous every 8 hours. - Subjective Interval history: Patient was crying in room, saying that she was having chest pain. EKG was immediately ordered as well as chest x-ray and troponin. EKG did not reveal any evidence of ischemia compared to a previous one obtained 2 days ago. Chest x-ray revealed left lower lobe pneumonia. Troponin was negative. Patient qualify for oxygen at home. - Constitutional Vitals: Temp Pulse Resp BP Pulse Ox 98.7 F 102 18 132/76 95 09/17/17 11:12 09/17/17 11:12 09/17/17 11:22 09/17/17 11:12 09/17/17 11:22 General appearance: Present: A&O X 3, no acute distress - Head Head exam: Present: atraumatic, normal inspection - ENT ENT exam: Present: normal exam - Neck Neck exam general surgery: Present: supple, trachea midline - Respiratory Respiratory exam: Present: rhonchi (Diffuse, moderate.). Absent: wheezes - Extremities Exam Extremities exam: Present: pedal edema (1+ bilaterally, chronic venous stasis changes) Internal Medicine: Result - Labs CBC & Chem 7: 09/17/17 08:35 09/17/17 06:52 Labs: Short CBC 09/17/17 Range/Units 08:35 WBC 27.3 H D (4.3-11.1) K/mcL Hgb 11.8 (11.5-15.4) g/dL Hct 38.4 (35.3-44.9) % Plt Count 151 (140-400) K/mcL Neutrophils # 6.2 (1.6-8.9) K/mcL BMP 09/17/17 06:52 Sodium 141 Potassium 4.0 Chloride 104 Carbon Dioxide 30 H BUN 26 H Creatinine 0.85 Glucose 215 H Calcium 8.9 Cardiac Enzymes 09/17/17 Range/Units 08:37 Troponin I < 0.03 (< 0.04) ng/mL - ABG Interpretation ABG results: PT/INR, D-dimer D-Dimer 1029 ng/mLFEU (0-500) H 09/13/17 10:05 - Impressions Impressions Chest X-Ray 09/17/17 08:35 IMPRESSION: Small amount of patchy opacity laterally in the left lung base. Small pneumonia may be present. No other significant abnormality. D/ / Dario Schneider MD / Dario Schneider MD Interpreting Provider: Dario Schneider MD Consult Discharge Plan - Plan Referrals: Mariaelena Vasquez, BUSINESS CONTINUITY COORDINATOR [Primary Care Provider] - 09/21/17 3:00 pm ( ) <Jose Manuel Bailey - Last Filed: 09/17/17 15:02> Date of Encounter: 09/17/17 - Constitutional Vitals: Temp Pulse Resp BP Pulse Ox 98.7 F 102 18 132/76 95 09/17/17 11:12 09/17/17 11:12 09/17/17 11:22 09/17/17 11:12 09/17/17 11:22 Internal Medicine: Result - Labs CBC & Chem 7: 09/17/17 08:35 09/17/17 06:52 Labs: Short CBC 09/17/17 Range/Units 08:35 WBC 27.3 H D (4.3-11.1) K/mcL Hgb 11.8 (11.5-15.4) g/dL Hct 38.4 (35.3-44.9) % Plt Count 151 (140-400) K/mcL Neutrophils # 6.2 (1.6-8.9) K/mcL BMP 09/17/17 06:52 Sodium 141 Potassium 4.0 Chloride 104 Carbon Dioxide 30 H BUN 26 H Creatinine 0.85 Glucose 215 H Calcium 8.9 Cardiac Enzymes 09/17/17 Range/Units 08:37 Troponin I < 0.03 (< 0.04) ng/mL - ABG Interpretation ABG results: PT/INR, D-dimer D-Dimer 1029 ng/mLFEU (0-500) H 09/13/17 10:05 - Impressions Impressions Chest X-Ray 09/17/17 08:35 IMPRESSION: Small amount of patchy opacity laterally in the left lung base. Small pneumonia may be present. No other significant abnormality. D/ / Dario Schneider MD / Dario Schneider MD Interpreting Provider: Dario Schneider MD - Attending Attestation I performed an independent interview and examine this patient. I agree with the findings, assessment, and plan of Dr. Hazel, internal medicine senior internet sales consultant. I discussed the case with him in detail and my input is reflected in his note. We did change antibiotics to Levaquin given concerns for worsening pneumonia. He was supplemental oxygen at 3 L per nasal cannula. We will reassess tomorrow. She is white blood cell count increased precipitously today. We will monitor.
[2017-09-17 13:52] LABS: Adenovirus Not Detected (Not Detect)
[2017-09-17 13:53] LABS: Bordetella Pertussis Not Detected (Not Detect); Chlamydophila pneumoniae Not Detected (Not Detect); Coronavirus 229E Not Detected (Not Detect); Coronavirus HKU1 Not Detected (Not Detect); Coronavirus NL63 Not Detected (Not Detect); Coronavirus OC43 Not Detected (Not Detect); Human Metapneumovirus ***DETECTED*** (Not Detect); Human Rhinovirus/Enterovirus Not Detected (Not Detect); Influenza A Subtype 2009 H1 Not Detected (Not Detect); Influenza A Untypeable Not Detected (Not Detect); Influenza B Not Detected (Not Detect); Mycoplasma pneumoniae Not Detected (Not Detect); Parainfluenza Virus 1 Not Detected (Not Detect); Parainfluenza Virus 2 Not Detected (Not Detect); Parainfluenza Virus 3 Not Detected (Not Detect); Parainfluenza Virus 4 Not Detected (Not Detect); Respiratory Syncytial Virus Not Detected (Not Detect)
[2017-09-17] MEDS ORDERED: 0.9 % Sodium Chloride 250 ML IVC ONE (17:17)
[2017-09-17] MEDS ORDERED: 0.9 % Sodium Chloride 500 ML ONE (17:22)
--- NOTE | 2017-09-17 17:31 | Event Note ---
Date of Encounter: 09/17/17 Time of Encounter: 17:28 Was notified that patient was me in SIRS criteria with leukocytosis and tachycardia with a heart rate in the low 100s. Patient has tested positive for human metapneumovirus which is most likely the source for the tachycardia. Lung exam reveals mild wheezes throughout. Patient is not an asthmatic or COPD patient. Will not give steroids at this time. We will provide a 250 mL bolus of normal saline to see if the tachycardia responds. We will provide Xopenex treatment.
[2017-09-17] MEDS ORDERED: Levalbuterol Neb 1.25 MG/3 ML IH STA (17:32)
[2017-09-17] MEDS ORDERED: Ipratropium Neb 0.5 MG NEBULIZER IH ONE (17:33)
[2017-09-17] MEDS ORDERED: *HR* FentaNYL (PF) 100 MCG/2 ML VIAL IVP ONE (19:01)
--- NOTE | 2017-09-17 19:04 | Event Note ---
Date of Encounter: 09/17/17 Time of Encounter: 19:02 Patient complaining of severe LLQ abdominal pain to nurse. Abdomen is soft, but tenderness to palpation is moderate in LLQ. No palpable mass. No peritoneal signs. Plan- Will give fentanyl and obtain CT abdomen and pelvis with iv contrast. Will also obtain urinalysis. Patient signed out to night team.
[2017-09-17] MEDS: Primidone 50 MG TABLET PO SCH (19:57)
[2017-09-18] MEDS: Ipratropium/Albuterol Neb 3 ML IH SCH ×7 (00:16→23:06)
[2017-09-18] MEDS: *HR* Heparin 5,000 UNIT/ML VIAL SQ SCH ×2 (05:25→15:30)
[2017-09-18 05:52] LABS: Basophils # 0.1 K/mcL (0.0-0.2); Basophils % 0.3 %; Eosinophils # 0.1 K/mcL (0.0-0.6); Eosinophils % 0.5 %; Hematocrit 33.2 % (35.3-44.9); Hemoglobin 10.3 g/dL (11.5-15.4); Immature Granulocytes % 2.1 % (0-4); Lymphocytes % 72.1 %; Mean Corpuscular Hemoglobin 28.2 pg (28.0-33.3); Mean Platelet Volume 11.2 fL (9.4-12.4); Monocytes # 0.6 K/mcL (0.0-1.3); Monocytes % 3.2 %; Platelet Count 146 K/mcL (140-400); Red Blood Count 3.65 M/mcL (3.82-4.97); Segmented Neutrophils % 21.8 %
[2017-09-18 05:58] LABS: Lymphocytes # 13.3 K/mcL (0.6-4.6)
[2017-09-18 06:02] LABS: BUN/Creatinine Ratio 24 (6-26); Blood Urea Nitrogen 24 mg/dL (8-23); Calcium 9.1 mg/dL (8.6-10.3); Carbon Dioxide 34 mEq/L (23-29); Chloride 102 mEq/L (98-107); Glucose 201 mg/dL (70-105); Osmolality,Calculated 302 (280-300); Sodium 141 mEq/L (136-145); eGFR For African Americans > 60 (> 60); eGFR For Non-African Americans 55 (> 60)
[2017-09-18] MEDS: Furosemide 20 MG TABLET PO SCH (09:48)
[2017-09-18] MEDS: Folic Acid 1 MG TABLET PO SCH (09:48)
[2017-09-18] MEDS: Cyanocobalamin (B-12) 1,000 MCG TABLET PO SCH (09:48)
[2017-09-18] MEDS: Famotidine 20 MG TABLET PO SCH (09:48)
[2017-09-18] MEDS: *HR* Pioglitazone 15 MG TABLET PO SCH (09:48)
[2017-09-18] MEDS: Aspirin 81 MG TAB.CHEW PO SCH (09:49)
[2017-09-18] MEDS: Magnesium Oxide 400 MG TABLET PO SCH (09:49)
[2017-09-18] MEDS: Metoprolol XL (24 HR) Succ 25 MG TAB.ER.24H PO SCH (09:49)
[2017-09-18] MEDS: Topiramate 25 MG TABLET PO SCH (09:50)
[2017-09-18] MEDS: Pregabalin 50 MG CAPSULE PO SCH ×2 (09:50→15:30)
[2017-09-18] MEDS: Loratadine 10 MG TABLET PO SCH (09:51)
[2017-09-18] MEDS: Levofloxacin 750 MG/150 ML 750 MG/150 ML BAG IVPB SCH (09:52)
[2017-09-18] MEDS: Insulin LISPRO 300 UNITS/3 ML VIAL SQ SCH ×6 (09:53→17:18)
[2017-09-18] MEDS: Fluticasone Propionate Nasal 50 MCG/SPRAY BOTTLE NS SCH (09:53)
[2017-09-18] MEDS: Insulin DETEMIR 100 UNIT/ML X5UNITS SQ SCH (09:57)
[2017-09-18] MEDS: traMADol 50 MG TABLET PO PRN (10:28)
[2017-09-18] MEDS: Benzonatate 100 MG CAPSULE PO PRN (10:28)
--- NOTE | 2017-09-18 16:32 | Internal Med Progress Note ---
<Mike Chino - Last Filed: 09/18/17 16:30> Date of Encounter: 09/18/17 Time of Encounter: 11:30 - Assessment and plan (1) Multifocal pneumonia Current Visit: Yes Status: Acute Assessment and plan: Patient had 3 days of Rocephin IV. Had 5 days of azithromycin. Patient has had a new leukocytosis from yesterday and this has increased today. Chest x- ray that was obtained reveals left lower lobe pneumonia. Day 2 of Levaquin. Respiratory infection panel also revealed human metapneumovirus. Patient may benefit from rehabilitation in an extended care facility. PT and OT states that she qualifies for home health. We will have social management check into this. Patient reporting chest pain. EKG and troponin were both normal. Suspect that this is all secondary to cough from her pneumonia. Continue to monitor. (2) Anemia Current Visit: Yes Status: Acute Assessment and plan: Hemoglobin today was 10.3. Stable and within her normal range. Not reporting any blood in stool, hemoptysis, hematemesis, hematuria. Qualifiers: Anemia type: other cause Other causes of anemia: chronic disease, neoplastic Qualified Code(s): D63.0 - Anemia in neoplastic disease (3) CLL (chronic lymphocytic leukemia) Current Visit: No Status: Chronic Assessment and plan: Stable (4) HTN (hypertension) Current Visit: No Status: Chronic Assessment and plan: Continue home medications Qualifiers: Hypertension type: essential hypertension Qualified Code(s): I10 - Essential (primary) hypertension (5) Obesity (BMI 30-39.9) Current Visit: No Status: Chronic (6) Type 2 diabetes mellitus Current Visit: No Status: Chronic Assessment and plan: Currently on insulin. . Qualifiers: Diabetes mellitus terminologist insulin use: with terminologist use Diabetes mellitus complication status: with kidney complications Diabetes mellitus complication detail: with chronic kidney disease Chronic kidney disease stage : stage 3 (moderate) Qualified Code(s): E11.22 - Type 2 diabetes mellitus with diabetic chronic kidney disease; N18.3 - Chronic kidney disease, stage 3 ( moderate); N18.3 - Chronic kidney disease, stage 3 (moderate); Z79.4 - tank terminal gauger (current) use of insulin; Z79.4 - custodial (current) use of insulin; Z79.4 - tank terminal gauger (current) use of insulin; Z79.4 - custodial (current) use of insulin (7) DVT prophylaxis Current Visit: Yes Status: Acute Assessment and plan: Heparin 5000 units subcutaneous every 8 hours. - Subjective Interval history: Patient's CT of the abdomen and pelvis revealed only lymphadenopathy else consistent with her CLL. Patient is still complaining of mild abdominal pain. Patient also complaining of chest pain that was similar in nature to the chest pain she had yesterday. Repeat electrocardiogram did not reveal any new ST segment changes. Troponin was negative. Chest pain resolved. Physical therapy and occupational therapy recommend home health. Patient states that she needs help at home and is nervous with going home. - Constitutional Vitals: Temp Pulse Resp BP Pulse Ox 98.0 F 90 17 131/70 100 09/18/17 16:15 09/18/17 16:15 09/18/17 16:15 09/18/17 16:15 09/18/17 16:15 General appearance: Present: A&O X 3, no acute distress - Head Head exam: Present: normal inspection - ENT ENT exam: Present: normal exam - Neck Neck exam general surgery: Present: supple, trachea midline - Respiratory Respiratory exam: Present: rhonchi. Absent: respiratory distress - Cardiovascular Cardiovascular exam: Present: RRR, +S1, +S2. Absent: JVD - GI/Abdominal GI/Abdominal exam: Present: soft, no peritoneal signs. Absent: firm, guarding, rebound, rigid, tenderness - Extremities Exam Extremities exam: Present: pedal edema (1+) Internal Medicine: Result - Labs CBC & Chem 7: 09/18/17 05:19 09/18/17 05:19 Labs: Short CBC 09/18/17 Range/Units 05:19 WBC 18.4 H (4.3-11.1) K/mcL Hgb 10.3 L D (11.5-15.4) g/dL Hct 33.2 L (35.3-44.9) % Plt Count 146 (140-400) K/mcL Neutrophils # 4.0 (1.6-8.9) K/mcL BMP 09/18/17 05:19 Sodium 141 Potassium 4.0 Chloride 102 Carbon Dioxide 34 H BUN 24 H Creatinine 1.00 Glucose 201 H Calcium 9.1 Cardiac Enzymes 09/18/17 Range/Units 12:50 Troponin I < 0.03 (< 0.04) ng/mL - ABG Interpretation ABG results: PT/INR, D-dimer D-Dimer 1029 ng/mLFEU (0-500) H 09/13/17 10:05 - Impressions Impressions Abdomen/Pelvis CT 09/17/17 18:52 IMPRESSION: Mild abdominal and pelvic lymphadenopathy. D/ / Audie Zhang MD / Audie Zhang MD Interpreting Provider: Audie Zhang MD Consult Discharge Plan - Plan Referrals: Mariaelena Vasquez, HIGHWAY SAFETY ENGINEER [Primary Care Provider] - 09/21/17 3:00 pm ( ) <Jose Manuel Bailey - Last Filed: 09/18/17 17:31> Date of Encounter: 09/18/17 - Constitutional Vitals: Temp Pulse Resp BP Pulse Ox 98.0 F 90 17 131/70 100 09/18/17 16:15 09/18/17 16:15 09/18/17 16:15 09/18/17 16:15 09/18/17 16:15 Internal Medicine: Result - Labs CBC & Chem 7: 09/18/17 05:19 09/18/17 05:19 Labs: Short CBC 09/18/17 Range/Units 05:19 WBC 18.4 H (4.3-11.1) K/mcL Hgb 10.3 L D (11.5-15.4) g/dL Hct 33.2 L (35.3-44.9) % Plt Count 146 (140-400) K/mcL Neutrophils # 4.0 (1.6-8.9) K/mcL BMP 09/18/17 05:19 Sodium 141 Potassium 4.0 Chloride 102 Carbon Dioxide 34 H BUN 24 H Creatinine 1.00 Glucose 201 H Calcium 9.1 Cardiac Enzymes 09/18/17 Range/Units 12:50 Troponin I < 0.03 (< 0.04) ng/mL - ABG Interpretation ABG results: PT/INR, D-dimer D-Dimer 1029 ng/mLFEU (0-500) H 09/13/17 10:05 - Impressions Impressions Abdomen/Pelvis CT 09/17/17 18:52 IMPRESSION: Mild abdominal and pelvic lymphadenopathy. D/ / Audie Zhang MD / Audie Zhang MD Interpreting Provider: Audie Zhang MD - Attending Attestation I performed an independent interview and examine this patient. I agree with the findings, assessment, and plan of Dr. Chino, internal medicine medical assistant internal medicine. My input is reflected in his note. Patient continues on Levaquin for pneumonia. She also has a viral pneumonia component. She otherwise continues to improve but still has some weakness and deconditioning and we are wondering if she might benefit from a stay at a rehabilitation center. She is satting well on 2 L at 100%. We will try to wean oxygen. All else as outlined above.
[2017-09-19] MEDS: Benzonatate 100 MG CAPSULE PO PRN (00:28)
[2017-09-19] MEDS: Pregabalin 50 MG CAPSULE PO SCH ×4 (00:29→21:59)
[2017-09-19] MEDS: *HR* Heparin 5,000 UNIT/ML VIAL SQ SCH ×4 (00:29→21:59)
[2017-09-19] MEDS: traMADol 50 MG TABLET PO PRN ×2 (00:29→08:47)
[2017-09-19] MEDS: Primidone 50 MG TABLET PO SCH ×2 (00:29→21:59)
[2017-09-19] MEDS: Topiramate 25 MG TABLET PO SCH ×3 (00:30→21:59)
[2017-09-19] MEDS: GuaiFENesin/Codeine Oral Soln 5 ML UDC PO PRN ×2 (00:56→08:48)
[2017-09-19] MEDS: Insulin DETEMIR 100 UNIT/ML X5UNITS SQ SCH ×3 (01:09→21:59)
[2017-09-19] MEDS: Ipratropium/Albuterol Neb 3 ML IH SCH ×6 (04:07→23:46)
[2017-09-19] MEDS: Insulin LISPRO 300 UNITS/3 ML VIAL SQ SCH ×8 (07:03→21:58)
[2017-09-19] MEDS: Levofloxacin 750 MG/150 ML 750 MG/150 ML BAG IVPB SCH (08:24)
[2017-09-19] MEDS: Loratadine 10 MG TABLET PO SCH (08:26)
[2017-09-19] MEDS: Magnesium Oxide 400 MG TABLET PO SCH (08:26)
[2017-09-19] MEDS: Furosemide 20 MG TABLET PO SCH (08:26)
[2017-09-19] MEDS: Cyanocobalamin (B-12) 1,000 MCG TABLET PO SCH (08:26)
[2017-09-19] MEDS: Folic Acid 1 MG TABLET PO SCH (08:26)
[2017-09-19] MEDS: Metoprolol XL (24 HR) Succ 25 MG TAB.ER.24H PO SCH (08:26)
[2017-09-19] MEDS: *HR* Pioglitazone 15 MG TABLET PO SCH (08:26)
[2017-09-19] MEDS: Aspirin 81 MG TAB.CHEW PO SCH (08:26)
[2017-09-19] MEDS: Famotidine 20 MG TABLET PO SCH (08:26)
[2017-09-19] MEDS: Fluticasone Propionate Nasal 50 MCG/SPRAY BOTTLE NS SCH (08:29)
--- NOTE | 2017-09-19 08:43 | Internal Med Progress Note ---
<LulúBelindad - Last Filed: 09/19/17 14:17> Date of Encounter: 09/19/17 Time of Encounter: 14:17 - Assessment and plan (1) Multifocal pneumonia Current Visit: Yes Status: Acute Assessment and plan: Patient had 3 days of Rocephin IV. Had 5 days of azithromycin. Patient has had a new leukocytosis from yesterday and this has increased today. Chest x- ray that was obtained reveals left lower lobe pneumonia. Respiratory infection panel also revealed human metapneumovirus. Patient may benefit from rehabilitation in an extended care facility. Case management states that there may be a bed available in the next few days. -Day 3 of Levaquin. -Perform incentive spirometry -Continue oxygen via nasal cannula to keep oxygen saturation greater than or equal to 93% (2) Anemia Current Visit: Yes Status: Acute Assessment and plan: Hemoglobin yesterday was 10.3. Stable and within her normal range. Not reporting any blood in stool, hemoptysis, hematemesis, hematuria. Qualifiers: Anemia type: other cause Other causes of anemia: chronic disease, neoplastic Qualified Code(s): D63.0 - Anemia in neoplastic disease (3) CLL (chronic lymphocytic leukemia) Current Visit: No Status: Chronic Assessment and plan: Stable (4) HTN (hypertension) Current Visit: No Status: Chronic Assessment and plan: Continue home medications Qualifiers: Hypertension type: essential hypertension Qualified Code(s): I10 - Essential (primary) hypertension (5) Obesity (BMI 30-39.9) Current Visit: No Status: Chronic (6) Type 2 diabetes mellitus Current Visit: No Status: Chronic Assessment and plan: Currently on insulin. . Qualifiers: Diabetes mellitus rn long term care insulin use: with rn long term care use Diabetes mellitus complication status: with kidney complications Diabetes mellitus complication detail: with chronic kidney disease Chronic kidney disease stage : stage 3 (moderate) Qualified Code(s): E11.22 - Type 2 diabetes mellitus with diabetic chronic kidney disease; N18.3 - Chronic kidney disease, stage 3 ( moderate); N18.3 - Chronic kidney disease, stage 3 (moderate); Z79.4 - keno terminal operator (current) use of insulin; Z79.4 - half-way (current) use of insulin; Z79.4 - half-way (current) use of insulin; Z79.4 - keno terminal operator (current) use of insulin (7) DVT prophylaxis Current Visit: Yes Status: Acute Assessment and plan: Heparin 5000 units subcutaneous every 8 hours. (8) Hypoxia Current Visit: Yes Status: Acute Assessment and plan: See above as patient requires oxygen via nasal cannula to keep oxygen saturation above 93% - Subjective Interval history: Patient currently not having any complaints at this time. Still reported some mild left lower quadrant abdominal pain. Denies any nausea or vomiting. Beds should be available starting next week for extended care facility placement. - Constitutional Vitals: Temp Pulse Resp BP Pulse Ox 98.5 F 90 17 138/79 90 09/19/17 08:24 09/19/17 08:24 09/19/17 08:24 09/19/17 08:24 09/19/17 08:24 General appearance: Present: A&O X 3, no acute distress - Head Head exam: Present: atraumatic, normal inspection - ENT ENT exam: Present: mucous membranes moist - Neck Neck exam general surgery: Present: supple, trachea midline - Respiratory Respiratory exam: Present: rhonchi (Dye fuse) - Cardiovascular Cardiovascular exam: Present: RRR, +S1, +S2. Absent: JVD - GI/Abdominal GI/Abdominal exam: Present: soft. Absent: rebound, rigid Additional comments: Mild tenderness to palpation the left lower quadrant - Extremities Exam Extremities exam: Present: pedal edema (1+ bilaterally) Internal Medicine: Result - Labs CBC & Chem 7: 09/18/17 05:19 09/18/17 05:19 Labs: Cardiac Enzymes 09/18/17 Range/Units 12:50 Troponin I < 0.03 (< 0.04) ng/mL - ABG Interpretation ABG results: PT/INR, D-dimer D-Dimer 1029 ng/mLFEU (0-500) H 09/13/17 10:05 Consult Discharge Plan - Plan Referrals: Mariaelena Vasquez, LEATHER WORKER [Primary Care Provider] - 09/21/17 3:00 pm ( ) <Jose Manuel Bailey - Last Filed: 09/19/17 14:55> Date of Encounter: 09/19/17 - Constitutional Vitals: Temp Pulse Resp BP Pulse Ox 97.8 F 99 18 107/71 95 09/19/17 11:13 09/19/17 11:13 09/19/17 11:26 09/19/17 11:13 09/19/17 11:26 Internal Medicine: Result - Labs CBC & Chem 7: 09/18/17 05:19 09/18/17 05:19 - ABG Interpretation ABG results: PT/INR, D-dimer D-Dimer 1029 ng/mLFEU (0-500) H 09/13/17 10:05 - Attending Attestation I performed an independent interview and examine this patient. I agree with the findings, assessment, and plan of Dr. Chino, internal medicine procurement internship. I am putting collected in his note. She is currently day 3 of a planned 5-7 day course of Levaquin for multifocal pneumonia. Initial treatment with azithromycin and Rocephin did not reveal much benefit. Patient continues to slowly improve but is markedly weak and deconditioned. Case is discussed with care management and physical therapy and we are attempting to place patient in to an extended care facility. Patient otherwise is clinically improved, maintaining O2 sats of 90-91% on 2 L per nasal cannula. Her vitals remained stable. Anticipate discharge once arrangements are made.
--- NOTE | 2017-09-19 13:03 | Electrocardiograph Report ---
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
--- NOTE | 2017-09-19 13:29 | Electrocardiograph Report ---
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
[2017-09-20] MEDS: Ipratropium/Albuterol Neb 3 ML IH SCH ×6 (04:53→23:53)
[2017-09-20] MEDS: *HR* Heparin 5,000 UNIT/ML VIAL SQ SCH ×3 (05:54→21:27)
[2017-09-20 07:47] LABS: Bilirubin,Urine Negative (Negative); Blood,Urine Negative (Negative); Clarity,Urine Clear (Clear); Color,Urine Yellow (Yellow); Glucose,Urine (UA) Normal (Normal); Ketones,Urine Negative (Negative); Leukocyte Esterase,Urine Negative (Negative); Nitrite,Urine Negative (Negative); Protein,Urine Negative (Neg-Trace); Specific Gravity,Urine 1.012 (1.010-1.025); Urobilinogen,Urine Normal (Normal)
[2017-09-20] MEDS: Levofloxacin 750 MG/150 ML 750 MG/150 ML BAG IVPB SCH (08:49)
[2017-09-20] MEDS: Fluticasone Propionate Nasal 50 MCG/SPRAY BOTTLE NS SCH (08:50)
[2017-09-20] MEDS: Folic Acid 1 MG TABLET PO SCH (08:50)
[2017-09-20] MEDS: Magnesium Oxide 400 MG TABLET PO SCH (08:50)
[2017-09-20] MEDS: Famotidine 20 MG TABLET PO SCH (08:50)
[2017-09-20] MEDS: Insulin DETEMIR 100 UNIT/ML X5UNITS SQ SCH ×2 (08:50→21:30)
[2017-09-20] MEDS: Pregabalin 50 MG CAPSULE PO SCH ×3 (08:50→21:27)
[2017-09-20] MEDS: Metoprolol XL (24 HR) Succ 25 MG TAB.ER.24H PO SCH (08:51)
[2017-09-20] MEDS: *HR* Pioglitazone 15 MG TABLET PO SCH (08:51)
[2017-09-20] MEDS: Cyanocobalamin (B-12) 1,000 MCG TABLET PO SCH (08:51)
[2017-09-20] MEDS: Topiramate 25 MG TABLET PO SCH ×2 (08:51→21:27)
[2017-09-20] MEDS: Insulin LISPRO 300 UNITS/3 ML VIAL SQ SCH ×7 (08:51→21:28)
[2017-09-20] MEDS: Furosemide 20 MG TABLET PO SCH (08:51)
[2017-09-20] MEDS: Loratadine 10 MG TABLET PO SCH (08:51)
[2017-09-20] MEDS: Aspirin 81 MG TAB.CHEW PO SCH (08:51)
--- NOTE | 2017-09-20 19:09 | Internal Med Progress Note ---
Date of Encounter: 09/20/17 Time of Encounter: 19:09 - Time Spent With Patient - Assessment and plan (1) Multifocal pneumonia Current Visit: Yes Status: Acute Assessment and plan: Patient had 3 days of Rocephin IV. Had 5 days of azithromycin. Patient has had a new leukocytosis from yesterday and this has increased today. Chest x- ray that was obtained reveals left lower lobe pneumonia. Respiratory infection panel also revealed human metapneumovirus. Patient may benefit from rehabilitation in an extended care facility. Case management states that there may be a bed available in the next few days. -Day 4 of Levaquin. -Perform incentive spirometry -Continue oxygen via nasal cannula to keep oxygen saturation greater than or equal to 93%. 09/20: pt denies fever or chills. Reports feeling better. Awaiting placement. Will reassess CBC in am. Hx of CLL therefore WBC may also be elevated due to that, however she appears to be clinically improving today 09/20/17. (2) Anemia Current Visit: Yes Status: Acute Assessment and plan: Hemoglobin yesterday was 10.3. Stable and within her normal range. Not reporting any blood in stool, hemoptysis, hematemesis, hematuria. Qualifiers: Anemia type: other cause Other causes of anemia: chronic disease, neoplastic Qualified Code(s): D63.0 - Anemia in neoplastic disease (3) CLL (chronic lymphocytic leukemia) Current Visit: No Status: Chronic Assessment and plan: Stable (4) HTN (hypertension) Current Visit: No Status: Chronic Assessment and plan: Continue home medications Qualifiers: Hypertension type: essential hypertension Qualified Code(s): I10 - Essential (primary) hypertension (5) Obesity (BMI 30-39.9) Current Visit: No Status: Chronic (6) Type 2 diabetes mellitus Current Visit: No Status: Chronic Assessment and plan: Currently on insulin. Qualifiers: Diabetes mellitus fpc insulin use: with paleology teacher use Diabetes mellitus complication status: with kidney complications Diabetes mellitus complication detail: with chronic kidney disease Chronic kidney disease stage : stage 3 (moderate) Qualified Code(s): E11.22 - Type 2 diabetes mellitus with diabetic chronic kidney disease; N18.3 - Chronic kidney disease, stage 3 ( moderate); N18.3 - Chronic kidney disease, stage 3 (moderate); Z79.4 - intermediate (current) use of insulin; Z79.4 - rubber press tender (current) use of insulin; Z79.4 - rubber press tender (current) use of insulin; Z79.4 - rubber press tender (current) use of insulin (7) DVT prophylaxis Current Visit: Yes Status: Acute Assessment and plan: Heparin 5000 units subcutaneous every 8 hours. (8) Hypoxia Current Visit: Yes Status: Acute Assessment and plan: See above as patient requires oxygen via nasal cannula to keep oxygen saturation above 93% less than 15 minutes - Subjective Interval history: Patient currently not having any complaints at this time. She denies left lower quadrant abdominal pain. Denies fever, chills, nausea or vomiting, diarrhea. Denies chest pain or SOB. Beds should be available starting next week for extended care facility placement. - Constitutional Vitals: Temp Pulse Resp BP Pulse Ox 97.9 F 93 16 123/77 93 09/20/17 16:47 09/20/17 16:47 09/20/17 16:47 09/20/17 16:47 09/20/17 16:47 General appearance: Present: A&O X 3, morbidly obese, no acute distress - Head Head exam: Present: atraumatic, normocephalic - Eye Eye exam: Present: PERRL, conjuntiva pink, sclera anicteric Pupils: Present: PERRL - Neck Neck exam general surgery: Present: supple, trachea midline. Absent: lymphadenopathy - Respiratory Respiratory exam: Present: rhonchi. Absent: accessory muscle use, CTAB, rales, wheezes - Cardiovascular Cardiovascular exam: Present: RRR, +S1, +S2. Absent: diastolic murmur, gallop, rubs, systolic murmur - GI/Abdominal GI/Abdominal exam: Present: normal bowel sounds, soft, no peritoneal signs. Absent: distended, tenderness - Extremities Exam Extremities exam: Present: warm, radial pulses palpable and symmetrical. Absent : calf tenderness, cyanotic, pedal edema - Neurological Exam Neurological exam: Present: CN II-XII intact, oriented X3, no focal deficits. Absent: pronater drift, facial droop, speech deficit - Skin Skin exam: Present: dry, intact Internal Medicine: Result - Labs CBC & Chem 7: 09/18/17 05:19 09/18/17 05:19 Labs: Urine 09/20/17 Range/Units 07:26 Urine Color Yellow (Yellow) Urine Clarity Clear (Clear) Urine pH 7.0 (5.0-8.0) pH Units Ur Specific [place] 1.012 (1.010-1.025) Urine Protein Negative (Neg-Trace) mg/dL Urine Glucose (UA) Normal (Normal) mg/dL - ABG Interpretation ABG results: PT/INR, D-dimer D-Dimer 1029 ng/mLFEU (0-500) H 09/13/17 10:05 Consult Discharge Plan - Plan Referrals: Mariaelena Vasquez CNP [Primary Care Provider] - 09/21/17 3:00 pm ( )
[2017-09-20] MEDS: traMADol 50 MG TABLET PO PRN (21:27)
[2017-09-20] MEDS: Primidone 50 MG TABLET PO SCH (21:28)
[2017-09-21] MEDS: Ipratropium/Albuterol Neb 3 ML IH SCH ×6 (04:03→23:24)
[2017-09-21] MEDS: *HR* Heparin 5,000 UNIT/ML VIAL SQ SCH ×3 (05:26→20:37)
[2017-09-21 06:19] LABS: Basophils # 0.1 K/mcL (0.0-0.2); Basophils % 0.3 %; Eosinophils # 0.2 K/mcL (0.0-0.6); Eosinophils % 1.3 %; Hematocrit 33.6 % (35.3-44.9); Hemoglobin 10.5 g/dL (11.5-15.4); Immature Granulocytes % 2.8 % (0-4); Lymphocytes # 11.3 K/mcL (0.6-4.6); Lymphocytes % 66.2 %; Mean Corpuscular HGB Conc 31.3 g/dL (31.6-35.5); Mean Corpuscular Hemoglobin 28.5 pg (28.0-33.3); Mean Corpuscular Volume 91.1 fL (83.0-100.0); Mean Platelet Volume 11.6 fL (9.4-12.4); Monocytes # 0.7 K/mcL (0.0-1.3); Monocytes % 3.9 %; Neutrophils # 4.4 K/mcL (1.6-8.9); Platelet Count 140 K/mcL (140-400); Red Blood Count 3.69 M/mcL (3.82-4.97); Red Cell Distribution Width 14.3 % (11.5-14.5); Segmented Neutrophils % 25.5 %
[2017-09-21] MEDS: Folic Acid 1 MG TABLET PO SCH (08:37)
[2017-09-21] MEDS: Levofloxacin 750 MG/150 ML 750 MG/150 ML BAG IVPB SCH (08:37)
[2017-09-21] MEDS: Metoprolol XL (24 HR) Succ 25 MG TAB.ER.24H PO SCH (08:37)
[2017-09-21] MEDS: Famotidine 20 MG TABLET PO SCH (08:37)
[2017-09-21] MEDS: Cyanocobalamin (B-12) 1,000 MCG TABLET PO SCH (08:38)
[2017-09-21] MEDS: Pregabalin 50 MG CAPSULE PO SCH ×3 (08:38→20:36)
[2017-09-21] MEDS: *HR* Pioglitazone 15 MG TABLET PO SCH (08:38)
[2017-09-21] MEDS: Magnesium Oxide 400 MG TABLET PO SCH (08:39)
[2017-09-21] MEDS: Furosemide 20 MG TABLET PO SCH (08:39)
[2017-09-21] MEDS: Aspirin 81 MG TAB.CHEW PO SCH (08:40)
[2017-09-21] MEDS: Loratadine 10 MG TABLET PO SCH (08:40)
[2017-09-21] MEDS: Topiramate 25 MG TABLET PO SCH ×2 (08:40→20:37)
[2017-09-21] MEDS: Fluticasone Propionate Nasal 50 MCG/SPRAY BOTTLE NS SCH (08:42)
[2017-09-21] MEDS: Insulin LISPRO 300 UNITS/3 ML VIAL SQ SCH ×7 (08:43→20:42)
[2017-09-21] MEDS: Insulin DETEMIR 100 UNIT/ML X5UNITS SQ SCH ×2 (08:56→20:42)
[2017-09-21] MEDS: Acetaminophen 325 MG TABLET PO PRN (11:01)
--- NOTE | 2017-09-21 15:56 | Internal Med Progress Note ---
Date of Encounter: 09/21/17 Time of Encounter: 15:01 - Assessment and plan (1) Acute respiratory failure with hypoxemia Current Visit: Yes Status: Acute Assessment and plan: secondary to multifocal PNA remains O2 dependent and will be discharged to home with oxygen leukocytosis persists but pt clinically improving will closely monitor respiratory status continue Levaquin (Day 5) blood and sputum culture reported no growth (2) Multifocal pneumonia Current Visit: Yes Status: Acute Assessment and plan: as listed above (3) Anemia Current Visit: Yes Status: Chronic Assessment and plan: H&H low but acceptable no acute bleeding reported at this time continue to closely monitor Qualifiers: Anemia type: other cause Other causes of anemia: chronic disease, neoplastic Qualified Code(s): D63.0 - Anemia in neoplastic disease (4) CAD (coronary artery disease) Current Visit: No Status: Chronic Assessment and plan: no signs of angina or chest pain continue home dose of ASA, statin, BB Qualifiers: Coronary Disease-Associated Artery/Lesion type: [place] artery [place] vs. transplanted heart: [place] heart Associated angina: without angina Qualified Code(s): I25.10 - Atherosclerotic heart disease of [place] coronary artery without angina pectoris (5) CLL (chronic lymphocytic leukemia) Current Visit: No Status: Chronic (6) HTN (hypertension) Current Visit: No Status: Chronic Assessment and plan: BP within acceptable range continue home meds Qualifiers: Hypertension type: essential hypertension Qualified Code(s): I10 - Essential (primary) hypertension (7) Type 2 diabetes mellitus Current Visit: No Status: Chronic Assessment and plan: continue sliding scale insulin coverage along with basal insulin monitor FS and BG ADA diet Qualifiers: Diabetes mellitus penitentiary insulin use: with penitentiary use Diabetes mellitus complication status: with kidney complications Diabetes mellitus complication detail: with chronic kidney disease Chronic kidney disease stage : stage 3 (moderate) Qualified Code(s): E11.22 - Type 2 diabetes mellitus with diabetic chronic kidney disease; N18.3 - Chronic kidney disease, stage 3 ( moderate); N18.3 - Chronic kidney disease, stage 3 (moderate); Z79.4 - exterminator helper (current) use of insulin; Z79.4 - exterminator helper (current) use of insulin; Z79.4 - senior care (current) use of insulin; Z79.4 - exterminator helper (current) use of insulin (8) Obesity (BMI 30-39.9) Current Visit: No Status: Chronic (9) DVT prophylaxis Current Visit: Yes Status: Acute Assessment and plan: Heparin SQ - Time Spent With Patient Total time spent is greater than 50% in coordination of care (as documented) at patient's floor/unit and/or counseling patient: - Subjective Interval history: Patient seen and examined at bedside. Sitting in bed and saturating well on nasal cannula. Pt wishes to be discharged to [facility] however her insurance won't approve. pan tank worker arranging home health along with home oxygen therapy. - Constitutional Vitals: Temp Pulse Resp BP Pulse Ox 97.5 F L 104 17 133/62 96 09/21/17 11:36 09/21/17 11:36 09/21/17 11:36 09/21/17 11:36 09/21/17 14:50 General appearance: Present: A&O X 3, morbidly obese, no acute distress - Head Head exam: Present: atraumatic, normocephalic - Eye Eye exam: Present: conjuntiva pink, sclera anicteric - Respiratory Respiratory exam: Absent: respiratory distress (diffuse rhonchi) - Cardiovascular Cardiovascular exam: Present: RRR, +S1, +S2 - GI/Abdominal GI/Abdominal exam: Present: normal bowel sounds, soft, no peritoneal signs. Absent: tenderness - Extremities Exam Extremities exam: Present: warm, radial pulses palpable and symmetrical. Absent : calf tenderness - Neurological Exam Neurological exam: Present: oriented X3 Internal Medicine: Result - Labs CBC & Chem 7: 09/21/17 05:54 09/18/17 05:19 Labs: Short CBC 09/21/17 Range/Units 05:54 WBC 17.1 H (4.3-11.1) K/mcL Hgb 10.5 L (11.5-15.4) g/dL Hct 33.6 L (35.3-44.9) % Plt Count 140 (140-400) K/mcL Neutrophils # 4.4 (1.6-8.9) K/mcL - ABG Interpretation ABG results: PT/INR, D-dimer D-Dimer 1029 ng/mLFEU (0-500) H 09/13/17 10:05 Consult Discharge Plan - Plan Referrals: Mariaelena Vasquez, JAVA SOFTWARE ARCHITECT [Primary Care Provider] - 09/21/17 3:00 pm ( )
[2017-09-21] MEDS: Benzonatate 100 MG CAPSULE PO PRN (20:37)
[2017-09-21] MEDS: GuaiFENesin/Codeine Oral Soln 5 ML UDC PO PRN (20:37)
[2017-09-21] MEDS: Primidone 50 MG TABLET PO SCH (20:37)
[2017-09-22] MEDS: Ipratropium/Albuterol Neb 3 ML IH SCH ×4 (03:55→15:19)
[2017-09-22] MEDS: *HR* Heparin 5,000 UNIT/ML VIAL SQ SCH ×2 (05:56→14:08)
[2017-09-22 05:57] LABS: Basophils # 0.1 K/mcL (0.0-0.2); Basophils % 0.4 %; Eosinophils # 0.2 K/mcL (0.0-0.6); Eosinophils % 1.4 %; Hematocrit 34.3 % (35.3-44.9); Hemoglobin 10.9 g/dL (11.5-15.4); Immature Granulocytes % 2.5 % (0-4); Lymphocytes # 10.5 K/mcL (0.6-4.6); Lymphocytes % 66.2 %; Mean Corpuscular HGB Conc 31.8 g/dL (31.6-35.5); Mean Corpuscular Hemoglobin 28.5 pg (28.0-33.3); Mean Corpuscular Volume 89.6 fL (83.0-100.0); Mean Platelet Volume 12.1 fL (9.4-12.4); Monocytes # 0.7 K/mcL (0.0-1.3); Monocytes % 4.6 %; Platelet Count 118 K/mcL (140-400); Red Blood Count 3.83 M/mcL (3.82-4.97); Red Cell Distribution Width 14.2 % (11.5-14.5); Segmented Neutrophils % 24.9 %
[2017-09-22] MEDS: Benzonatate 100 MG CAPSULE PO PRN ×2 (05:57→14:07)
[2017-09-22 06:02] LABS: BUN/Creatinine Ratio 27 (6-26); Blood Urea Nitrogen 28 mg/dL (8-23); Calcium 9.5 mg/dL (8.6-10.3); Carbon Dioxide 30 mEq/L (23-29); Chloride 101 mEq/L (98-107); Glucose 269 mg/dL (70-105); Magnesium 1.5 mg/dL (1.6-2.6); Osmolality,Calculated 297 (280-300); Potassium 4.7 mEq/L (3.5-5.1); Sodium 136 mEq/L (136-145); eGFR For African Americans > 60 (> 60); eGFR For Non-African Americans 54 (> 60)
[2017-09-22 06:52] LABS: Platelet Estimate Normal (Normal); Reactive Lymphocytes Present (Not Present); Smudge Cells Present (Not Present)
[2017-09-22] MEDS: Famotidine 20 MG TABLET PO SCH (08:04)
[2017-09-22] MEDS: Metoprolol XL (24 HR) Succ 25 MG TAB.ER.24H PO SCH (08:04)
[2017-09-22] MEDS: Aspirin 81 MG TAB.CHEW PO SCH (08:04)
[2017-09-22] MEDS: Magnesium Oxide 400 MG TABLET PO SCH (08:04)
[2017-09-22] MEDS: Pregabalin 50 MG CAPSULE PO SCH ×2 (08:04→14:07)
[2017-09-22] MEDS: Topiramate 25 MG TABLET PO SCH (08:04)
[2017-09-22] MEDS: Insulin LISPRO 300 UNITS/3 ML VIAL SQ SCH ×5 (08:05→11:34)
[2017-09-22] MEDS: Folic Acid 1 MG TABLET PO SCH (08:05)
[2017-09-22] MEDS: Furosemide 20 MG TABLET PO SCH (08:05)
[2017-09-22] MEDS: Fluticasone Propionate Nasal 50 MCG/SPRAY BOTTLE NS SCH (08:05)
[2017-09-22] MEDS: *HR* Pioglitazone 15 MG TABLET PO SCH (08:05)
[2017-09-22] MEDS: Loratadine 10 MG TABLET PO SCH (08:05)
[2017-09-22] MEDS: Cyanocobalamin (B-12) 1,000 MCG TABLET PO SCH (08:06)
[2017-09-22] MEDS: Insulin DETEMIR 100 UNIT/ML X5UNITS SQ SCH (08:09)
[2017-09-22] MEDS ORDERED: levoFLOXacin 750 MG TABLET PO SCH (09:00)
[2017-09-22] MEDS: traMADol 50 MG TABLET PO PRN (09:17)
[2017-09-22 11:20] VITALS: BP 120/77
--- NOTE | 2017-09-22 13:09 | Discharge Summary ---
- NOTES TO OUTPATIENT PROVIDER Notes to Outpatient Provider: Patient treated for multifocal pneumonia, currently on levaquin, to finish ten days of therapy. Was started on O2 supplementation and will be discharged to home with oxgen. Date of Encounter: 09/22/17 Time of Encounter: 11:50 - Discharge Diagnosis (1) Acute respiratory failure with hypoxemia Priority: Primary Status: Acute (2) Multifocal pneumonia Priority: Primary Status: Acute (3) Anemia Priority: Secondary Status: Chronic Qualifiers: Anemia type: other cause Other causes of anemia: chronic disease, neoplastic Qualified Code(s): D63.0 - Anemia in neoplastic disease (4) CAD (coronary artery disease) Priority: Secondary Status: Chronic Qualifiers: Coronary Disease-Associated Artery/Lesion type: [place] artery [place] vs. transplanted heart: [place] heart Associated angina: without angina Qualified Code(s): I25.10 - Atherosclerotic heart disease of [place] coronary artery without angina pectoris (5) CLL (chronic lymphocytic leukemia) Priority: Secondary Status: Chronic (6) HTN (hypertension) Priority: Secondary Status: Chronic Qualifiers: Hypertension type: essential hypertension Qualified Code(s): I10 - Essential (primary) hypertension (7) Type 2 diabetes mellitus Priority: Secondary Status: Chronic Qualifiers: Diabetes mellitus shelter insulin use: with charter representative use Diabetes mellitus complication status: with kidney complications Diabetes mellitus complication detail: with chronic kidney disease Chronic kidney disease stage : stage 3 (moderate) Qualified Code(s): E11.22 - Type 2 diabetes mellitus with diabetic chronic kidney disease; N18.3 - Chronic kidney disease, stage 3 ( moderate); N18.3 - Chronic kidney disease, stage 3 (moderate); Z79.4 - washing machine assembler (current) use of insulin; Z79.4 - washing machine assembler (current) use of insulin; Z79.4 - assisted (current) use of insulin; Z79.4 - assisted (current) use of insulin (8) Obesity (BMI 30-39.9) Priority: Secondary Status: Chronic (9) DVT prophylaxis Priority: Secondary Status: Acute Hospital course: Ms. Vargas is a 67 year old female with PMH of CLL, DM, HTN, HLD, Fe def anemia who was admitted for acute respiratory distress secondary to pneumonia. Pt was started on IV abx and O2 supplementation. Pt initially showed improvement with rocephin and azithromycin however continued to have persistent respiratory distress and cxr reporting LLL PNA and respiratory infection panel positive for human metapneumovirus. She was started on levaquin and O2 supplementation was continued. She responded well to therapy and her respiratory status has improved. She initially wanted to be discharged to ECF however her insurance did not approve her discharge to ECF due to which she is going to be discharged to home with home health services. She also qualified for home oxygen which has been arranged at home prior to her discharge. At this time she is medically stable for her discharge to home with follow up with PCP and pulmonology. Pt demonstrates understanding of her diagnosis and agrees with the discharge care and plan. Discharge discussed with: patient, nurse, social work, case management - Time Spent with Patient Total time spent providing and/or coordinating discharge services: Greater than 30 minutes - Discharge Medications Prescriptions: Albuterol Neb [Proventil Neb] 2.5 mg IH Q4H PRN #1 inhsol PRN Reason: Shortness Of Breath/Wheezing Levofloxacin [Levaquin] 750 mg PO DAILY #4 tablet Home Medications: Aspirin 81 mg PO DAILY 04/05/15 [History] Atorvastatin [Lipitor] 40 mg PO DAILY 04/05/15 [History] Insulin LISPRO [HumaLOG] 5 - 15 units SQ TIDAC 04/05/15 [History] Topiramate [Topamax] 25 mg PO BID 08/23/15 [History] Folic Acid 1 mg PO DAILY #30 tablet 09/18/15 [Rx] Ergocalciferol (VITAMIN D2) [Vitamin D2 (50,000 UNIT)] 50,000 unit PO WE [History] Primidone [Mysoline] 50 mg PO HS 02/28/16 [History] Ascorbic Acid [Vitamin C] 500 mg PO DAILY 03/06/16 [History] Ferrous Sulfate [Iron] 325 mg PO DAILY 03/06/16 [History] Fluticasone Propionate Nasal [Flonase] 100 mcg NS DAILY 11/26/16 [History] Insulin Glargine/Lixisenatide [Soliqua 100 Unit-33 Mcg/ml Pen] 60 unit SQ HS [History] Tramadol HCl [Ultram] 50 mg PO TID 11/26/16 [History] Cyanocobalamin (Vitamin B-12) [Vitamin B-12] 500 mcg PO DAILY 05/06/17 [History] Furosemide [Lasix] 20 mg PO DAILY PRN 05/06/17 [History] Linagliptin [Tradjenta] 5 mg PO DAILY 05/06/17 [History] Loratadine [Claritin] 10 mg PO DAILY 05/06/17 [History] Metoprolol XL (24 HR) Succ [Toprol Xl] 25 mg PO DAILY 05/06/17 [History] Pioglitazone [Actos] 15 mg PO DAILY 05/06/17 [History] Pregabalin [Lyrica] 75 mg PO TID 05/06/17 [History] Sucralfate [Carafate] 1 gm PO QID 05/06/17 [History] Magnesium Oxide [Magnesium] 400 mg PO DAILY 07/07/17 [History] Acetaminophen [Tylenol] 650 mg PO Q6HR PRN tablet 07/10/17 [Rx] Ranitidine HCl [Zantac] 150 mg PO DAILY #30 tablet 07/10/17 [Rx] Metoclopramide [Reglan] 5 mg PO TIDAC #60 tablet 08/21/17 [Rx] Benzonatate [Tessalon] 100 mg PO TID PRN #21 capsule 09/09/17 [Rx] Ibrutinib [Imbruvica] 420 cap PO DAILY 09/11/17 [History] Albuterol Neb [Proventil Neb] 2.5 mg IH Q4H PRN #1 inhsol 09/22/17 [Rx] Levofloxacin [Levaquin] 750 mg PO DAILY #4 tablet 09/22/17 [Rx] Allergies/Adverse Reactions: 3 Allergy/AdvReac Type Severity Reaction Status Date / Time metformin Allergy Nausea Verified 09/11/17 09:55 Sulfa (Sulfonamide Allergy Nausea Verified 09/11/17 09:55 Antibiotics) sulfamethoxazole Allergy Nausea Verified 09/11/17 09:55 [From Bactrim] trimethoprim [From Bactrim] Allergy Nausea Verified 09/11/17 09:55 Date of admission: 09/13/17 20:25 Primary care physician: Mariaelena Vasquez CNP Consults: 09/17/17 18:54 Consult to Occupational Therapy [CONS] Routine Comment: Evaluate, develop and implement POC Reason for Consult: weakness on ambulation. Does patient have active BEDREST order?: No Is patient medically & hemodynamically stable?: No Patient assessed for mobility or mobilized this visit?: No Consult to Physical Therapy [CONS] Routine Comment: Evaluate, develop and implement POC Reason for Consult: weakness on ambulation Does patient have active BEDREST order?: No Is patient medically & hemodynamically stable?: Yes Patient assessed for mobility or mobilized this visit?: No 09/17/17 18:55 Consult to Still Operator Batch Or Continuous [CONS] Routine Reason for SW Consult: possible placement. Discharging clinician: Dedra Levin Anticipated date of discharge: 09/22/17 - Constitutional Vitals: Temp Pulse Resp BP Pulse Ox 97.7 F 97 18 120/77 97 09/22/17 11:09 09/22/17 11:09 09/22/17 11:29 09/22/17 11:09 09/22/17 11:29 General appearance: Present: A&O X 3, no acute distress, obese - Head Head exam: Present: atraumatic, normocephalic - Eye Eye exam: Present: conjuntiva pink, sclera anicteric - Respiratory Respiratory exam: Absent: respiratory distress, wheezes (equal air entry bilaterally) - Cardiovascular Cardiovascular exam: Present: RRR, +S1, +S2. Absent: diastolic murmur, gallop, rubs, systolic murmur - GI/Abdominal GI/Abdominal exam: Present: normal bowel sounds, soft, no peritoneal signs. Absent: tenderness - Extremities Exam Extremities exam: Present: warm, radial pulses palpable and symmetrical. Absent : calf tenderness, tenderness - Neurological Exam Neurological exam: Present: oriented X3 - Patient Status Disposition: Home Health Service Condition: Good Functional capacity at discharge: uses cane/walker Overall status at discharge: patient is back to baseline - Discharge Instructions Follow Up With: Mariaelena Vasquez CNP [Primary Care Provider] - 09/29/17 10:00 am (Please follow up as schedule... ) Additional Instructions: Please follow up with your primary care physician within five days after your discharge from the hospital. Please follow up with pulmonology within one to two weeks after your discharge from the hospital. Please continue oral antibiotics as prescribed. Resume all your other home medications as prescribed by your primary care physician. - Diet and Activity Activity: as per physical therapy, wear oxygen at all times, wear oxygen at night Diet: diabetic diet, low fat, low cholesterol, low salt diet
--- NOTE | 2017-09-22 14:14 | Physician Discharge Referral ---
Home Health/Hosp Referral Info Transfer to: Home Health Provider in Charge Post Discharge: PCP - Diagnosis (1) Acute respiratory failure with hypoxemia Priority: Primary Status: Acute (2) Multifocal pneumonia Priority: Primary Status: Acute (3) Anemia Priority: Secondary Status: Chronic (4) CAD (coronary artery disease) Priority: Secondary Status: Chronic (5) CLL (chronic lymphocytic leukemia) Priority: Secondary Status: Chronic (6) HTN (hypertension) Priority: Secondary Status: Chronic (7) Type 2 diabetes mellitus Priority: Secondary Status: Chronic (8) Obesity (BMI 30-39.9) Priority: Secondary Status: Chronic (9) DVT prophylaxis Status: Acute - Respiratory Orders Smoking Cessation: Smoking cessation has been advised. For more information, call the [place] Tobacco Quit Line at 2-496-ZEBX-NOW. - Services Needed Following services are medically necessary services: Nursing, Home Health Aide, Physical Therapy, Occupational Therapy - Transfer Medications Prescriptions: Albuterol Neb [Proventil Neb] 2.5 mg IH Q4H PRN #1 inhsol PRN Reason: Shortness Of Breath/Wheezing Levofloxacin [Levaquin] 750 mg PO DAILY #4 tablet Home Medications: Aspirin 81 mg PO DAILY 04/05/15 [History] Atorvastatin [Lipitor] 40 mg PO DAILY 04/05/15 [History] Insulin LISPRO [HumaLOG] 5 - 15 units SQ TIDAC 04/05/15 [History] Topiramate [Topamax] 25 mg PO BID 08/23/15 [History] Folic Acid 1 mg PO DAILY #30 tablet 09/18/15 [Rx] Ergocalciferol (VITAMIN D2) [Vitamin D2 (50,000 UNIT)] 50,000 unit PO WE [History] Primidone [Mysoline] 50 mg PO HS 02/28/16 [History] Ascorbic Acid [Vitamin C] 500 mg PO DAILY 03/06/16 [History] Ferrous Sulfate [Iron] 325 mg PO DAILY 03/06/16 [History] Fluticasone Propionate Nasal [Flonase] 100 mcg NS DAILY 11/26/16 [History] Insulin Glargine/Lixisenatide [[place] 100 Unit-33 Mcg/ml Pen] 60 unit SQ HS [History] Tramadol HCl [Ultram] 50 mg PO TID 11/26/16 [History] Cyanocobalamin (Vitamin B-12) [Vitamin B-12] 500 mcg PO DAILY 05/06/17 [History] Furosemide [Lasix] 20 mg PO DAILY PRN 05/06/17 [History] Linagliptin [Tradjenta] 5 mg PO DAILY 05/06/17 [History] Loratadine [Claritin] 10 mg PO DAILY 05/06/17 [History] Metoprolol XL (24 HR) Succ [Toprol Xl] 25 mg PO DAILY 05/06/17 [History] Pioglitazone [Actos] 15 mg PO DAILY 05/06/17 [History] Pregabalin [Lyrica] 75 mg PO TID 05/06/17 [History] Sucralfate [Carafate] 1 gm PO QID 05/06/17 [History] Magnesium Oxide [Magnesium] 400 mg PO DAILY 07/07/17 [History] Acetaminophen [Tylenol] 650 mg PO Q6HR PRN tablet 07/10/17 [Rx] Ranitidine HCl [Zantac] 150 mg PO DAILY #30 tablet 07/10/17 [Rx] Metoclopramide [Reglan] 5 mg PO TIDAC #60 tablet 08/21/17 [Rx] Benzonatate [Tessalon] 100 mg PO TID PRN #21 capsule 09/09/17 [Rx] Ibrutinib [Imbruvica] 420 cap PO DAILY 09/11/17 [History] Albuterol Neb [Proventil Neb] 2.5 mg IH Q4H PRN #1 inhsol 09/22/17 [Rx] Levofloxacin [Levaquin] 750 mg PO DAILY #4 tablet 09/22/17 [Rx] Allergies/Adverse Reactions: 3 Allergy/AdvReac Type Severity Reaction Status Date / Time metformin Allergy Nausea Verified 09/11/17 09:55 Sulfa (Sulfonamide Allergy Nausea Verified 09/11/17 09:55 Antibiotics) sulfamethoxazole Allergy Nausea Verified 09/11/17 09:55 [From Bactrim] trimethoprim [From Bactrim] Allergy Nausea Verified 09/11/17 09:55 Certification: Further, I certify that my clinical findings support that this patient is homebound (i.e. absences from home require considerable and taxing effort and are for medical reasons or anabaptism services or infrequently or short duration when for other reasons) because: Homebound Reason: Patient requires assistance of a person or device to safely leave home Attestation: My signature below is to certify that this patient is under my care and that I, or nurse practitioner, or a physician's corporate administrative assistant working with me, has a face-to -face encounter with this patient.
[2017-09-22] MEDS ORDERED: Insulin DETEMIR 100 UNIT/ML X5UNITS SQ SCH (21:00)
== END 2017-09-22 18:00 | disposition home health service (06) | DRG 194 ==
LOC: 2ANU 07:41 → EMEROO 07:41 → SUATTDRO 09:43 → 2ANU 10:25
PROVIDERS: ADMIT Hospitalist; ATTEND Internal Medicine

== ENCOUNTER 2017-11-05 04:20 | Inpatient (IN) ==
[2017-11-05] MEDS ORDERED: Promethazine 25 MG in 0.9 % Sodium Chloride 50 ML IVPB ONE (04:48)
[2017-11-05] MEDS ORDERED: 0.9 % Sodium Chloride 1,000 ML IVC ONE (04:48)
[2017-11-05 04:59] LABS: Hematocrit 40.2 % (35.3-44.9); Hemoglobin 12.8 g/dL (11.5-15.4); Lymphocytes # 9.3 K/mcL (0.6-4.6); Mean Corpuscular HGB Conc 31.8 g/dL (31.6-35.5); Mean Corpuscular Hemoglobin 27.9 pg (28.0-33.3); Mean Corpuscular Volume 87.8 fL (83.0-100.0); Nucleated Red Blood Cells 0.1 /100 WBC (0); Platelet Count 140 K/mcL (140-400); Red Blood Count 4.58 M/mcL (3.82-4.97); Red Cell Distribution Width 14.3 % (11.5-14.5)
[2017-11-05 05:06] LABS: Activated Partial Thrombo Time 28.8 Seconds (26.0-36.0)
[2017-11-05 05:11] LABS: Bilirubin,Urine Negative (Negative); Blood,Urine Negative (Negative); Clarity,Urine Clear (Clear); Color,Urine Yellow (Yellow); Glucose,Urine (UA) Normal (Normal); Ketones,Urine Negative (Negative); Leukocyte Esterase,Urine Moderate (Negative); Nitrite,Urine Positive (Negative); Protein,Urine Negative (Neg-Trace); Specific Gravity,Urine 1.021 (1.010-1.025); Urobilinogen,Urine Normal (Normal)
[2017-11-05 05:13] LABS: Bacteria,Urine Moderate per hpf (None-Few); Hyaline Casts,Urine None Seen per lpf (None-Few); RBC,Urine 0-3 per hpf (0-3); Squamous Epithelial Cell,Urine Many per lpf (None-Few); WBC,Urine 15-30 per hpf (0-3)
[2017-11-05] MEDS ORDERED: Ondansetron 4 MG/2 ML VIAL IVP PRN (05:17)
[2017-11-05 05:28] LABS: Alanine Aminotransferase 10 Units/L (7-52); Albumin 4.5 g/dL (3.5-5.7); Albumin/Globulin Ratio 1.9 (1.1-2.2); Alkaline Phosphatase 88 Units/L (34-104); Aspartate Amino Transferase 12 Units/L (13-39); BUN/Creatinine Ratio 13 (6-26); Bilirubin,Direct 0.1 mg/dL (0.0-0.2); Bilirubin,Indirect 0.4 mg/dL (0.0-1.2); Bilirubin,Total 0.5 mg/dL (0.3-1.0); Blood Urea Nitrogen 13 mg/dL (8-23); Calcium 9.6 mg/dL (8.6-10.3); Carbon Dioxide 26 mEq/L (23-29); Chloride 101 mEq/L (98-107); Globulin 2.4 g/dL (2.4-3.5); Glucose 216 mg/dL (70-105); Lipase 12 Units/L (11-82); Osmolality,Calculated 297 (280-300); Potassium 3.9 mEq/L (3.5-5.1); Sodium 140 mEq/L (136-145); Total Protein 6.9 g/dL (6.4-8.9); Troponin I < 0.03 ng/mL (< 0.04); eGFR For African Americans > 60 (> 60); eGFR For Non-African Americans 57 (> 60)
[2017-11-05 05:33] LABS: Monocytes # 0.6 K/mcL (0.0-1.3); Neutrophils # 3.1 K/mcL (1.6-8.9); Platelet Estimate Normal (Normal); Reactive Lymphocytes Present (Not Present)
[2017-11-05] MEDS ORDERED: Ketorolac 15 MG/ML VIAL IVP ONE (05:45)
[2017-11-05] MEDS ORDERED: *HR* FentaNYL (PF) 100 MCG/2 ML VIAL IVP ONE (06:03)
[2017-11-05] MEDS ORDERED: Isovue-370 500 ML INFUS..BTL IV ONE (06:03)
--- NOTE | 2017-11-05 06:44 | Emergency Department Note ---
Disposition Clinical Impression: Intractable abdominal pain Urinary tract infection Qualifiers: Urinary tract infection type: site unspecified Hematuria presence: without hematuria Qualified Code(s): N39.0 - Urinary tract infection, site not specified Intractable nausea and vomiting Qualifiers: Vomiting type: unspecified Qualified Code(s): R11.2 - Nausea with vomiting, unspecified Disposition: Admitted As Inpatient Condition: Fair Referrals: Mariaelena Vasquez [employer]PER[employer] [Primary Care Provider] - Forms: ED Satisfaction Letter, Work/School Release Time of Disposition: 08:02 Abdominal Pain HPI - General Chief Complaint: ED Abdominal Pain Stated Complaint: abdominal pain,vomiting Time Seen by Provider: 11/05/17 04:32 Source: patient, family Mode of arrival: ambulatory Limitations: no limitations Nursing Notes Reviewed: Yes Vital Signs Reviewed: Yes - History of Present Illness HPI Narrative: Nontoxic-appearing 67-year-old female presents for evaluation of diffuse abdominal as well as thoracic back pain that has gradually worsened since yesterday. She complains of subjective chills but denies any overt fever. She does complain of some nausea and vomiting but denies any diarrhea or constipation. She denies any dysuria. She denies any known aggravating or alleviating factors for this pain. She denies any known mechanism of injury for her thoracic back pain. She states this pain is not made worsened with inspiration. She denies any hemoptysis but does complain of a cough that is productive of a tenacious white sputum. 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 Denies: diarrhea, fever , constipation, dysuria, hematemesis, hematochezia, melena, hematuria Treatments prior to arrival: none - Related Data Home Medications Medication Instructions Recorded Confirmed Aspirin 81 mg PO DAILY 04/05/15 10/28/17 Atorvastatin [Lipitor] 40 mg PO DAILY 04/05/15 10/28/17 Insulin LISPRO [HumaLOG] 5 - 15 units SQ TIDAC 04/05/15 10/28/17 Topiramate [Topamax] 25 mg PO BID 08/23/15 10/28/17 Ergocalciferol (VITAMIN D2) 50,000 unit PO WE 02/28/16 10/28/17 [Vitamin D2 (50,000 UNIT)] Primidone [Mysoline] 50 mg PO HS 02/28/16 10/28/17 Ascorbic Acid [Vitamin C] 500 mg PO DAILY 03/06/16 10/28/17 Ferrous Sulfate [Iron] 325 mg PO DAILY 03/06/16 10/28/17 Fluticasone Propionate Nasal 100 mcg NS DAILY 11/26/16 10/28/17 [Flonase] Insulin Glargine/Lixisenatide 60 unit SQ HS 11/26/16 10/28/17 [Soliqua 100 Unit-33 Mcg/ml Pen] Tramadol HCl [Ultram] 50 mg PO TID 11/26/16 10/28/17 Cyanocobalamin (Vitamin B-12) 500 mcg PO DAILY 05/06/17 10/28/17 [Vitamin B-12] Furosemide [Lasix] 20 mg PO DAILY PRN 05/06/17 10/28/17 Linagliptin [Tradjenta] 5 mg PO DAILY 05/06/17 10/28/17 Loratadine [Claritin] 10 mg PO DAILY 05/06/17 10/28/17 Metoprolol XL (24 HR) Succ [Toprol 25 mg PO DAILY 05/06/17 10/28/17 Xl] Pioglitazone [Actos] 15 mg PO DAILY 05/06/17 10/28/17 Pregabalin [Lyrica] 75 mg PO TID 05/06/17 10/28/17 Sucralfate [Carafate] 1 gm PO QID 05/06/17 10/28/17 Ibrutinib [Imbruvica] 420 cap PO DAILY 09/11/17 10/28/17 Previous Rx's Medication Instructions Recorded Folic Acid 1 mg PO DAILY #30 tablet 09/18/15 Acetaminophen [Tylenol] 650 mg PO Q6HR PRN tablet 07/10/17 raNITIdine HCl [Zantac] 150 mg PO DAILY #30 tablet 07/10/17 Metoclopramide [Reglan] 5 mg PO TIDAC #60 tablet 08/21/17 Benzonatate [Tessalon] 100 mg PO TID PRN #21 capsule 09/09/17 Albuterol Neb [Proventil Neb] 2.5 mg IH Q4H PRN #1 inhsol 09/22/17 Levofloxacin [Levaquin] 750 mg PO DAILY #4 tablet 09/22/17 Magnesium Oxide [Magnesium] 400 mg PO DAILY #30 tablet 09/24/17 Allergies Allergy/AdvReac Type Severity Reaction Status Date / Time metformin Allergy Nausea Verified 11/05/17 04:28 Sulfa (Sulfonamide Allergy Nausea Verified 11/05/17 04:28 Antibiotics) sulfamethoxazole Allergy Nausea Verified 11/05/17 04:28 [From Bactrim] trimethoprim [From Bactrim] Allergy Nausea Verified 11/05/17 04:28 All systems ED: reviewed and negative except as stated. Constitutional: Denies: fever, chills, weakness, weight change Eyes: Denies: eye pain, eye discharge, vision change ENT ED: Denies: ear pain, throat pain, dental pain, hearing loss, epistaxis, congestion, dysphagia Cardiovascular: Denies: chest pain, palpitations, dyspnea on exertion, edema, syncope Respiratory: Denies: cough, dyspnea, wheezes, hemoptysis, stridor Gastrointestinal: Reports: as per HPI, abdominal pain, nausea, vomiting. Denies : diarrhea, constipation, hematemesis, melena, hematochezia Genitourinary: Denies: dysuria, frequency, hematuria, discharge Musculoskeletal: Reports: as per HPI, back pain. Denies: neck pain, arthralgia , myalgia Integumentary: Denies: rash, abrasion, lesions Neurological: Denies: headache, weakness, numbness, paresthesias, confusion, abnormal gait, vertigo Psychiatric: Denies: anxiety, depression, suicidal thoughts, homicidal thoughts , auditory hallucinations, visual hallucinations Endocrine: Denies: fatigue Hematological/Lymphatic: Denies: easy bleeding, easy bruising Allergic/Immunologic: Denies: facial swelling, urticaria Abdominal Pain PMH - Past Medical History Medical history: Reports: cancer, coronary artery disease, diabetes, hypertension, renal disease, other Female Surgical History: Reports: appendectomy, cholecystectomy SERVICE EMPLOYEE history: Reports: no SERVICE EMPLOYEE history Psychiatric history: Reports: anxiety, depression - Social History Smoking status: Never smoker Alcohol use: Reports: none Drug use: Reports: none Physical Exam - General Limitations: no limitations General appearance: alert, appears intoxicated - Head Head exam: atraumatic, normocephalic, normal inspection - Eye Eye exam: Present: normal appearance, PERRL, EOMI. Absent: nystagmus - ENT ENT exam: mucous membranes moist - Neck Neck exam: Present: normal inspection, full ROM, trachea midline - Chest Chest inspection: Present: normal inspection, symmetric chest wall rise - Respiratory Respiratory exam: Present: normal lung sounds bilaterally. Absent: respiratory distress, wheezes, stridor, accessory muscle use, prolonged expiratory phase - Cardiovascular Cardiovascular exam: Present: regular rate, normal rhythm, normal heart sounds - Abdominal Exam Abdominal exam: Present: soft, Non-Tender, normal bowel sounds - Extremities Exam Extremities exam: Present: normal inspection, full ROM. Absent: tenderness, pedal edema - Back Exam Back exam: Present: normal inspection, full ROM. Absent: tenderness, vertebral tenderness - Neurological Exam Neurological exam: Present: alert, oriented X3 - Psychiatric Psychiatric exam: Present: normal affect, normal mood - Skin Skin exam: Present: warm, dry, intact, normal color. Absent: rash Course Course Narrative: I spoke with Dr. Cho regarding this patient's case. He has reviewed her laboratory and radiology results as well as had a [id number] evaluation with patient. He recommends admission to the hospitalist service for further treatment of her urinary tract infection, intractable abdominal pain, and intractable nausea. 0800: I spoke with Dr. Martins of the Hospital services accepted the patient for admission for further care. Vital Signs Temperature 97.5 F L 11/05/17 04:28 Pulse Rate 86 11/05/17 04:28 Respiratory Rate 18 11/05/17 04:28 Blood Pressure 186/85 11/05/17 04:28 O2 Sat by Pulse Oximetry 95 11/05/17 04:28 Temperature 97.5 F L 11/05/17 04:28 Pulse Rate 85 11/05/17 07:36 Respiratory Rate 18 11/05/17 06:53 Blood Pressure 169/88 11/05/17 07:36 O2 Sat by Pulse Oximetry 95 11/05/17 07:36 Oxygen Delivery Oxygen Delivery Nasal Cannula Abdominal Pain - Medical Records Medical records reviewed: Yes I reviewed the patient's medical records. - Lab Data Lab results reviewed: Yes I reviewed the patient's lab results. Lab results narrative: Laboratory Last Values WBC 14.1 K/mcL (4.3-11.1) H 11/05/17 04:36 RBC 4.58 M/mcL (3.82-4.97) 11/05/17 04:36 Hgb 12.8 g/dL (11.5-15.4) 11/05/17 04:36 Hct 40.2 % (35.3-44.9) 11/05/17 04:36 MCV 87.8 fL (83.0-100.0) 11/05/17 04:36 MCH 27.9 pg (28.0-33.3) L 11/05/17 04:36 MCHC 31.8 g/dL (31.6-35.5) 11/05/17 04:36 RDW 14.3 % (11.5-14.5) 11/05/17 04:36 Plt Count 140 K/mcL (140-400) 11/05/17 04:36 MPV 11.0 fL (9.4-12.4) 11/05/17 04:36 Seg Neutrophils % 22.0 % 11/05/17 04:36 Lymphocytes % 66.0 % 11/05/17 04:36 Monocytes % 4.0 % 11/05/17 04:36 Metamyelocytes % 2.0 % (0) H 11/05/17 04:36 Myelocytes % 4.0 % (0) H 11/05/17 04:36 Blast Cells % 2.0 % (0) H 11/05/17 04:36 Neutrophils # 3.1 K/mcL (1.6-8.9) 11/05/17 04:36 Lymphocytes # 9.3 K/mcL (0.6-4.6) H 11/05/17 04:36 Monocytes # 0.6 K/mcL (0.0-1.3) 11/05/17 04:36 Nucleated RBCs/100 WBC 0.1 /100 WBC (0) H 11/05/17 04:36 Reactive Lymphocytes Present (Not Present) A 11/05/17 04:36 Platelet Estimate Normal (Normal) 11/05/17 04:36 PT 11.0 Seconds (9.4-12.1) 11/05/17 04:36 INR 1.0 11/05/17 04:36 APTT 28.8 Seconds (26.0-36.0) 11/05/17 04:36 Sodium 140 mEq/L (136-145) 11/05/17 04:36 Potassium 3.9 mEq/L (3.5-5.1) 11/05/17 04:36 Chloride 101 mEq/L (98-107) 11/05/17 04:36 Carbon Dioxide 26 mEq/L (23-29) 11/05/17 04:36 BUN 13 mg/dL (8-23) 11/05/17 04:36 Creatinine 0.97 mg/dL (0.60-1.20) 11/05/17 04:36 Est GFR ( Amer) > 60 (> 60) 11/05/17 04:36 Est GFR (Non-Af Amer) 57 (> 60) L 11/05/17 04:36 BUN/Creatinine Ratio 13 (6-26) 11/05/17 04:36 Glucose 216 mg/dL (70-105) H 11/05/17 04:36 Calculated Osmolality 297 (280-300) 11/05/17 04:36 Lactic Acid 2.2 mmol/L (0.5-2.2) 11/05/17 05:34 Calcium 9.6 mg/dL (8.6-10.3) 11/05/17 04:36 Total Bilirubin 0.5 mg/dL (0.3-1.0) 11/05/17 04:36 Direct Bilirubin 0.1 mg/dL (0.0-0.2) 11/05/17 04:36 Indirect Bilirubin 0.4 mg/dL (0.0-1.2) 11/05/17 04:36 AST 12 Units/L (13-39) L 11/05/17 04:36 ALT 10 Units/L (7-52) 11/05/17 04:36 Alkaline Phosphatase 88 Units/L (34-104) 11/05/17 04:36 Troponin I < 0.03 ng/mL (< 0.04) 11/05/17 04:36 Serum Total Protein 6.9 g/dL (6.4-8.9) 11/05/17 04:36 Albumin 4.5 g/dL (3.5-5.7) 11/05/17 04:36 Globulin 2.4 g/dL (2.4-3.5) 11/05/17 04:36 Albumin/Globulin Ratio 1.9 (1.1-2.2) 11/05/17 04:36 Lipase 12 Units/L (11-82) 11/05/17 04:36 Urine Color Yellow (Yellow) 11/05/17 04:42 Urine Clarity Clear (Clear) 11/05/17 04:42 Urine pH 7.0 pH Units (5.0-8.0) 11/05/17 04:42 Ur Specific [place] 1.021 (1.010-1.025) 11/05/17 04:42 Urine Protein Negative mg/dL (Neg-Trace) 11/05/17 04:42 Urine Glucose (UA) Normal mg/dL (Normal) 11/05/17 04:42 Urine Ketones Negative mg/dL (Negative) 11/05/17 04:42 Urine Blood Negative (Negative) 11/05/17 04:42 Urine Nitrite Positive (Negative) A 11/05/17 04:42 Urine Bilirubin Negative (Negative) 11/05/17 04:42 Urine Urobilinogen Normal mg/dL (Normal) 11/05/17 04:42 Ur Leukocyte Esterase Moderate (Negative) H 11/05/17 04:42 Urine Microscopic RBC 0-3 per hpf (0-3) 11/05/17 04:42 Urine Microscopic WBC 15-30 per hpf (0-3) H 11/05/17 04:42 Ur Squamous Epith Cells Many per lpf (None-Few) H 11/05/17 04:42 Urine Bacteria Moderate per hpf (None-Few) H 11/05/17 04:42 Hyaline Casts None Seen per lpf (None-Few) 11/05/17 04:42 Ur Culture Indicated? NO. (NO) A 11/05/17 04:42 Result diagrams: 11/05/17 04:36 11/05/17 04:36 Lab Results 11/05/17 11/05/17 11/05/17 Range/Units 04:36 04:36 04:36 WBC 14.1 H (4.3-11.1) K/mcL RBC 4.58 (3.82-4.97) M/mcL Hgb 12.8 (11.5-15.4) g/dL Hct 40.2 (35.3-44.9) % MCV 87.8 (83.0-100.0) fL MCH 27.9 L (28.0-33.3) pg MCHC 31.8 (31.6-35.5) g/dL RDW 14.3 (11.5-14.5) % Plt Count 140 (140-400) K/mcL MPV 11.0 (9.4-12.4) fL Seg Neutrophils % 22.0 % Lymphocytes % 66.0 % Monocytes % 4.0 % Metamyelocytes % 2.0 H (0) % Myelocytes % 4.0 H (0) % Blast Cells % 2.0 H (0) % Neutrophils # 3.1 (1.6-8.9) K/mcL Lymphocytes # 9.3 H (0.6-4.6) K/mcL Monocytes # 0.6 (0.0-1.3) K/mcL Nucleated RBCs/100 WBC 0.1 H (0) /100 WBC Reactive Lymphocytes Present A (Not Present) Platelet Estimate Normal (Normal) PT 11.0 (9.4-12.1) Seconds INR 1.0 APTT 28.8 (26.0-36.0) Seconds Sodium 140 (136-145) mEq/L Potassium 3.9 (3.5-5.1) mEq/L Chloride 101 (98-107) mEq/L Carbon Dioxide 26 (23-29) mEq/L BUN 13 (8-23) mg/dL Creatinine 0.97 (0.60-1.20) mg/dL Est GFR ( Amer) > 60 (> 60) Est GFR (Non-Af Amer) 57 L (> 60) BUN/Creatinine Ratio 13 (6-26) Glucose 216 H (70-105) mg/dL Calculated Osmolality 297 (280-300) Lactic Acid (0.5-2.2) mmol/L Calcium 9.6 (8.6-10.3) mg/dL Total Bilirubin 0.5 (0.3-1.0) mg/dL Direct Bilirubin 0.1 (0.0-0.2) mg/dL Indirect Bilirubin 0.4 (0.0-1.2) mg/dL AST 12 L (13-39) Units/L ALT 10 (7-52) Units/L Alkaline Phosphatase 88 (34-104) Units/L Troponin I < 0.03 (< 0.04) ng/mL Serum Total Protein 6.9 (6.4-8.9) g/dL Albumin 4.5 (3.5-5.7) g/dL Globulin 2.4 (2.4-3.5) g/dL Albumin/Globulin Ratio 1.9 (1.1-2.2) Lipase 12 (11-82) Units/L Urine Color (Yellow) Urine Clarity (Clear) Urine pH (5.0-8.0) pH Units Ur Specific [place] (1.010-1.025) Urine Protein (Neg-Trace) mg/dL Urine Glucose (UA) (Normal) mg/dL Urine Ketones (Negative) mg/dL Urine Blood (Negative) Urine Nitrite (Negative) Urine Bilirubin (Negative) Urine Urobilinogen (Normal) mg/dL Ur Leukocyte Esterase (Negative) Urine Microscopic RBC (0-3) per hpf Urine Microscopic WBC (0-3) per hpf Ur Squamous Epith Cells (None-Few) per lpf Urine Bacteria (None-Few) per hpf Hyaline Casts (None-Few) per lpf Ur Culture Indicated? (NO) 11/05/17 11/05/17 Range/Units 04:42 05:34 WBC (4.3-11.1) K/mcL RBC (3.82-4.97) M/mcL Hgb (11.5-15.4) g/dL Hct (35.3-44.9) % MCV (83.0-100.0) fL MCH (28.0-33.3) pg MCHC (31.6-35.5) g/dL RDW (11.5-14.5) % Plt Count (140-400) K/mcL MPV (9.4-12.4) fL Seg Neutrophils % % Lymphocytes % % Monocytes % % Metamyelocytes % (0) % Myelocytes % (0) % Blast Cells % (0) % Neutrophils # (1.6-8.9) K/mcL Lymphocytes # (0.6-4.6) K/mcL Monocytes # (0.0-1.3) K/mcL Nucleated RBCs/100 WBC (0) /100 WBC Reactive Lymphocytes (Not Present) Platelet Estimate (Normal) PT (9.4-12.1) Seconds INR APTT (26.0-36.0) Seconds Sodium (136-145) mEq/L Potassium (3.5-5.1) mEq/L Chloride (98-107) mEq/L Carbon Dioxide (23-29) mEq/L BUN (8-23) mg/dL Creatinine (0.60-1.20) mg/dL Est GFR ( Amer) (> 60) Est GFR (Non-Af Amer) (> 60) BUN/Creatinine Ratio (6-26) Glucose (70-105) mg/dL Calculated Osmolality (280-300) Lactic Acid 2.2 (0.5-2.2) mmol/L Calcium (8.6-10.3) mg/dL Total Bilirubin (0.3-1.0) mg/dL Direct Bilirubin (0.0-0.2) mg/dL Indirect Bilirubin (0.0-1.2) mg/dL AST (13-39) Units/L ALT (7-52) Units/L Alkaline Phosphatase (34-104) Units/L Troponin I (< 0.04) ng/mL Serum Total Protein (6.4-8.9) g/dL Albumin (3.5-5.7) g/dL Globulin (2.4-3.5) g/dL Albumin/Globulin Ratio (1.1-2.2) Lipase (11-82) Units/L Urine Color Yellow (Yellow) Urine Clarity Clear (Clear) Urine pH 7.0 (5.0-8.0) pH Units Ur Specific [place] 1.021 (1.010-1.025) Urine Protein Negative (Neg-Trace) mg/dL Urine Glucose (UA) Normal (Normal) mg/dL Urine Ketones Negative (Negative) mg/dL Urine Blood Negative (Negative) Urine Nitrite Positive A (Negative) Urine Bilirubin Negative (Negative) Urine Urobilinogen Normal (Normal) mg/dL Ur Leukocyte Esterase Moderate H (Negative) Urine Microscopic RBC 0-3 (0-3) per hpf Urine Microscopic WBC 15-30 H (0-3) per hpf Ur Squamous Epith Cells Many H (None-Few) per lpf Urine Bacteria Moderate H (None-Few) per hpf Hyaline Casts None Seen (None-Few) per lpf Ur Culture Indicated? NO. A (NO) - Radiology Data Radiology results reviewed: Yes I reviewed the patient's radiology results. Chest X-Ray 11/05/17 05:52 IMPRESSION: No focal airspace disease identified. D/ / Andrea Laura MD / Andrea Laura MD Interpreting Provider: Andrea Laura MD Abdomen/Pelvis CT 11/05/17 05:59 IMPRESSION: 1. Mediastinal, axillary, pelvic adenopathy along with mild retroperitoneal and mesenteric lymphadenopathy noted findings stable. . There is also splenomegaly unchanged. There is a history of CLL. 2. Interval resolution of ground-glass and centrilobular nodules in the lower lobes reported on prior. 3. No acute infective or inflammatory process. D/ / Mikey Albarado MD / Mikey Albarado MD Interpreting Provider: Mikey Albarado MD Thoracic Spine CT 11/05/17 06:00 IMPRESSION: 1. No acute bony abnormality. 2. Diffuse pattern of ill-defined lytic foci throughout the bones suggestive of marrow infiltrative process such as lymphoma or leukemia. MRI would be helpful to provide more detail. D/ / Mikey Albarado MD / Mikey Albarado MD Interpreting Provider: Mikey Albarado MD Chest CT 11/05/17 06:03
[2017-11-05] MEDS ORDERED: *HR* Nalbuphine 10 MG/ML AMPUL IV ONE (07:30)
[2017-11-05] MEDS ORDERED: cefTRIAXone 1,000 MG in 0.9 % Sodium Chloride Mini Bag 100 ML IVPB ONE (08:00)
--- NOTE | 2017-11-05 08:18 | Emergency Department Note ---
Disposition Clinical Impression: Intractable abdominal pain Urinary tract infection Qualifiers: Urinary tract infection type: site unspecified Hematuria presence: without hematuria Qualified Code(s): N39.0 - Urinary tract infection, site not specified Intractable nausea and vomiting Qualifiers: Vomiting type: unspecified Qualified Code(s): R11.2 - Nausea with vomiting, unspecified Disposition: Admitted As Inpatient Condition: Fair Referrals: Mariaelena Vasquez, PRODUCT C[employer]FTSMAN [Primary Care Provider] - Forms: ED Satisfaction Letter, Work/School Release General Adult HPI - General Chief complaint: ED Abdominal Pain Stated complaint: abdominal pain,vomiting Time Seen by Provider: 11/05/17 04:32 Source: patient, family Mode of arrival: ambulatory Limitations: no limitations Nursing Notes Reviewed: Yes Vital Signs Reviewed: Yes - History of Present Illness Pain Scale: 10 - Related Data Home Medications Medication Instructions Recorded Confirmed Aspirin 81 mg PO DAILY 04/05/15 10/28/17 Atorvastatin [Lipitor] 40 mg PO DAILY 04/05/15 10/28/17 Insulin LISPRO [HumaLOG] 5 - 15 units SQ TIDAC 04/05/15 10/28/17 Topiramate [Topamax] 25 mg PO BID 08/23/15 10/28/17 Ergocalciferol (VITAMIN D2) 50,000 unit PO WE 02/28/16 10/28/17 [Vitamin D2 (50,000 UNIT)] Primidone [Mysoline] 50 mg PO HS 02/28/16 10/28/17 Ascorbic Acid [Vitamin C] 500 mg PO DAILY 03/06/16 10/28/17 Ferrous Sulfate [Iron] 325 mg PO DAILY 03/06/16 10/28/17 Fluticasone Propionate Nasal 100 mcg NS DAILY 11/26/16 10/28/17 [Flonase] Insulin Glargine/Lixisenatide 60 unit SQ HS 11/26/16 10/28/17 [Soliqua 100 Unit-33 Mcg/ml Pen] Tramadol HCl [Ultram] 50 mg PO TID 11/26/16 10/28/17 Cyanocobalamin (Vitamin B-12) 500 mcg PO DAILY 05/06/17 10/28/17 [Vitamin B-12] Furosemide [Lasix] 20 mg PO DAILY PRN 05/06/17 10/28/17 Linagliptin [Tradjenta] 5 mg PO DAILY 05/06/17 10/28/17 Loratadine [Claritin] 10 mg PO DAILY 05/06/17 10/28/17 Metoprolol XL (24 HR) Succ [Toprol 25 mg PO DAILY 05/06/17 10/28/17 Xl] Pioglitazone [Actos] 15 mg PO DAILY 05/06/17 10/28/17 Pregabalin [Lyrica] 75 mg PO TID 05/06/17 10/28/17 Sucralfate [Carafate] 1 gm PO QID 05/06/17 10/28/17 Ibrutinib [Imbruvica] 420 cap PO DAILY 09/11/17 10/28/17 Previous Rx's Medication Instructions Recorded Folic Acid 1 mg PO DAILY #30 tablet 09/18/15 Acetaminophen [Tylenol] 650 mg PO Q6HR PRN tablet 07/10/17 raNITIdine HCl [Zantac] 150 mg PO DAILY #30 tablet 07/10/17 Metoclopramide [Reglan] 5 mg PO TIDAC #60 tablet 08/21/17 Benzonatate [Tessalon] 100 mg PO TID PRN #21 capsule 09/09/17 Albuterol Neb [Proventil Neb] 2.5 mg IH Q4H PRN #1 inhsol 09/22/17 Levofloxacin [Levaquin] 750 mg PO DAILY #4 tablet 09/22/17 Magnesium Oxide [Magnesium] 400 mg PO DAILY #30 tablet 09/24/17 Allergies Allergy/AdvReac Type Severity Reaction Status Date / Time metformin Allergy Nausea Verified 11/05/17 04:28 Sulfa (Sulfonamide Allergy Nausea Verified 11/05/17 04:28 Antibiotics) sulfamethoxazole Allergy Nausea Verified 11/05/17 04:28 [From Bactrim] trimethoprim [From Bactrim] Allergy Nausea Verified 11/05/17 04:28 Constitutional: Denies: fever, chills, weakness, weight change Eyes: Denies: eye pain, eye discharge, vision change ENT ED: Denies: ear pain, throat pain, dental pain, hearing loss, epistaxis, congestion, dysphagia Cardiovascular: Denies: chest pain, palpitations, dyspnea on exertion, edema, syncope Respiratory: Denies: cough, dyspnea, wheezes, hemoptysis, stridor Gastrointestinal: Reports: as per HPI, abdominal pain, nausea, vomiting. Denies : diarrhea, constipation, hematemesis, melena, hematochezia Genitourinary: Denies: dysuria, frequency, hematuria, discharge Musculoskeletal: Reports: as per HPI, back pain. Denies: neck pain, arthralgia , myalgia Integumentary: Denies: rash, abrasion, lesions Neurological: Denies: headache, weakness, numbness, paresthesias, confusion, abnormal gait, vertigo Psychiatric: Denies: anxiety, depression, suicidal thoughts, homicidal thoughts , auditory hallucinations, visual hallucinations Endocrine: Denies: fatigue Hematological/Lymphatic: Denies: easy bleeding, easy bruising Allergic/Immunologic: Denies: facial swelling, urticaria Past Medical History - Past Medical History Medical history: Reports: cancer, coronary artery disease, diabetes, hypertension, renal disease, other Surgical history: Reports: appendectomy, cholecystectomy, THERESE/BSO, other Psychiatric history: Reports: anxiety, depression QUOTER history: Reports: no QUOTER history - Social History Smoking Status: Never smoker Smokeless Tobacco Status: No Alcohol use: Reports: none Drug use: Reports: none Physical Exam - General Limitations: no limitations General appearance: alert, appears intoxicated Course Vital Signs Temperature 97.5 F L 11/05/17 04:28 Pulse Rate 86 11/05/17 04:28 Respiratory Rate 18 11/05/17 04:28 Blood Pressure 186/85 11/05/17 04:28 O2 Sat by Pulse Oximetry 95 11/05/17 04:28 Temperature 97.5 F L 11/05/17 04:28 Pulse Rate 85 11/05/17 07:36 Respiratory Rate 18 11/05/17 06:53 Blood Pressure 169/88 11/05/17 07:36 O2 Sat by Pulse Oximetry 95 11/05/17 07:36 Oxygen Delivery Oxygen Delivery Nasal Cannula Medical Decision Making - Lab Data Result diagrams: 11/05/17 04:36 11/05/17 04:36 Lab Results 11/05/17 11/05/17 11/05/17 Range/Units 04:36 04:36 04:36 WBC 14.1 H (4.3-11.1) K/mcL RBC 4.58 (3.82-4.97) M/mcL Hgb 12.8 (11.5-15.4) g/dL Hct 40.2 (35.3-44.9) % MCV 87.8 (83.0-100.0) fL MCH 27.9 L (28.0-33.3) pg MCHC 31.8 (31.6-35.5) g/dL RDW 14.3 (11.5-14.5) % Plt Count 140 (140-400) K/mcL MPV 11.0 (9.4-12.4) fL Seg Neutrophils % 22.0 % Lymphocytes % 66.0 % Monocytes % 4.0 % Metamyelocytes % 2.0 H (0) % Myelocytes % 4.0 H (0) % Blast Cells % 2.0 H (0) % Neutrophils # 3.1 (1.6-8.9) K/mcL Lymphocytes # 9.3 H (0.6-4.6) K/mcL Monocytes # 0.6 (0.0-1.3) K/mcL Nucleated RBCs/100 WBC 0.1 H (0) /100 WBC Reactive Lymphocytes Present A (Not Present) Platelet Estimate Normal (Normal) PT 11.0 (9.4-12.1) Seconds INR 1.0 APTT 28.8 (26.0-36.0) Seconds Sodium 140 (136-145) mEq/L Potassium 3.9 (3.5-5.1) mEq/L Chloride 101 (98-107) mEq/L Carbon Dioxide 26 (23-29) mEq/L BUN 13 (8-23) mg/dL Creatinine 0.97 (0.60-1.20) mg/dL Est GFR ( Amer) > 60 (> 60) Est GFR (Non-Af Amer) 57 L (> 60) BUN/Creatinine Ratio 13 (6-26) Glucose 216 H (70-105) mg/dL Calculated Osmolality 297 (280-300) Lactic Acid (0.5-2.2) mmol/L Calcium 9.6 (8.6-10.3) mg/dL Total Bilirubin 0.5 (0.3-1.0) mg/dL Direct Bilirubin 0.1 (0.0-0.2) mg/dL Indirect Bilirubin 0.4 (0.0-1.2) mg/dL AST 12 L (13-39) Units/L ALT 10 (7-52) Units/L Alkaline Phosphatase 88 (34-104) Units/L Troponin I < 0.03 (< 0.04) ng/mL Serum Total Protein 6.9 (6.4-8.9) g/dL Albumin 4.5 (3.5-5.7) g/dL Globulin 2.4 (2.4-3.5) g/dL Albumin/Globulin Ratio 1.9 (1.1-2.2) Lipase 12 (11-82) Units/L Urine Color (Yellow) Urine Clarity (Clear) Urine pH (5.0-8.0) pH Units Ur Specific [place] (1.010-1.025) Urine Protein (Neg-Trace) mg/dL Urine Glucose (UA) (Normal) mg/dL Urine Ketones (Negative) mg/dL Urine Blood (Negative) Urine Nitrite (Negative) Urine Bilirubin (Negative) Urine Urobilinogen (Normal) mg/dL Ur Leukocyte Esterase (Negative) Urine Microscopic RBC (0-3) per hpf Urine Microscopic WBC (0-3) per hpf Ur Squamous Epith Cells (None-Few) per lpf Urine Bacteria (None-Few) per hpf Hyaline Casts (None-Few) per lpf Ur Culture Indicated? (NO) 11/05/17 11/05/17 Range/Units 04:42 05:34 WBC (4.3-11.1) K/mcL RBC (3.82-4.97) M/mcL Hgb (11.5-15.4) g/dL Hct (35.3-44.9) % MCV (83.0-100.0) fL MCH (28.0-33.3) pg MCHC (31.6-35.5) g/dL RDW (11.5-14.5) % Plt Count (140-400) K/mcL MPV (9.4-12.4) fL Seg Neutrophils % % Lymphocytes % % Monocytes % % Metamyelocytes % (0) % Myelocytes % (0) % Blast Cells % (0) % Neutrophils # (1.6-8.9) K/mcL Lymphocytes # (0.6-4.6) K/mcL Monocytes # (0.0-1.3) K/mcL Nucleated RBCs/100 WBC (0) /100 WBC Reactive Lymphocytes (Not Present) Platelet Estimate (Normal) PT (9.4-12.1) Seconds INR APTT (26.0-36.0) Seconds Sodium (136-145) mEq/L Potassium (3.5-5.1) mEq/L Chloride (98-107) mEq/L Carbon Dioxide (23-29) mEq/L BUN (8-23) mg/dL Creatinine (0.60-1.20) mg/dL Est GFR ( Amer) (> 60) Est GFR (Non-Af Amer) (> 60) BUN/Creatinine Ratio (6-26) Glucose (70-105) mg/dL Calculated Osmolality (280-300) Lactic Acid 2.2 (0.5-2.2) mmol/L Calcium (8.6-10.3) mg/dL Total Bilirubin (0.3-1.0) mg/dL Direct Bilirubin (0.0-0.2) mg/dL Indirect Bilirubin (0.0-1.2) mg/dL AST (13-39) Units/L ALT (7-52) Units/L Alkaline Phosphatase (34-104) Units/L Troponin I (< 0.04) ng/mL Serum Total Protein (6.4-8.9) g/dL Albumin (3.5-5.7) g/dL Globulin (2.4-3.5) g/dL Albumin/Globulin Ratio (1.1-2.2) Lipase (11-82) Units/L Urine Color Yellow (Yellow) Urine Clarity Clear (Clear) Urine pH 7.0 (5.0-8.0) pH Units Ur Specific [place] 1.021 (1.010-1.025) Urine Protein Negative (Neg-Trace) mg/dL Urine Glucose (UA) Normal (Normal) mg/dL Urine Ketones Negative (Negative) mg/dL Urine Blood Negative (Negative) Urine Nitrite Positive A (Negative) Urine Bilirubin Negative (Negative) Urine Urobilinogen Normal (Normal) mg/dL Ur Leukocyte Esterase Moderate H (Negative) Urine Microscopic RBC 0-3 (0-3) per hpf Urine Microscopic WBC 15-30 H (0-3) per hpf Ur Squamous Epith Cells Many H (None-Few) per lpf Urine Bacteria Moderate H (None-Few) per hpf Hyaline Casts None Seen (None-Few) per lpf Ur Culture Indicated? NO. A (NO) Attestation Statement - Attestation Attestation: I, Adam Cho MD, personally evaluated this patient and discussed their management with the midlevel provicer, PAC/PRODUCT CRAFTSMAN. I reviewed the midlevel provider 's note and agree with the documented findings, medical decision making, and plan of care. 67-year-old female presents to the emergency department with a complaint of severe upper thoracic back pain between her shoulder blades for 1 day prior to arrival. She also complains of some generalized abdominal pain. Some nausea and vomiting. No fever. No diarrhea. Patient has a history of leukemia and is not on any treatment. On examination patient is a well-developed obese elderly female in no acute distress but appears to be in moderate discomfort. She is alert and oriented 3. There is no cyanosis or diaphoresis. Some tenderness over the mid to upper thoracic spine area. Breath sounds are clear and equal bilaterally. Heart regular. Abdomen is soft with mild diffuse tenderness. Bowel sounds present. Labs reviewed. CT of the chest abdomen pelvis shows no acute abnormality. There is diffuse lymphadenopathy which is unchanged. CT of the thoracic spine shows no acute bony abnormality. Labs reviewed. Patient continued to have severe nausea and pain while in the emergency department. The hospitalist, Dr. Martins, was consulted and accepted admission of the patient.
--- NOTE | 2017-11-05 09:13 | Internal Med History&Physical ---
Date of Encounter: 11/05/17 Time of Encounter: 09:01 Internal Medicine - H&P: HPI Chief complaint: abdominal pain and back pain Admitted From: Home Plans for Post Hospital Care: Home History of present illness: Ms. Vargas is a 67 year old female who has a history of CLL CAD diabetes hypertension CK D stages II, presented to emergency room for sudden onset abdominal pain and back pain. Back pain is located to the upper back, started last night, 8 out of 10, constant, sharp, no radiations, nothing makes better or worse. She also c/o upper abdominal pain,10 out of 10, constant, aching all over, associated with severe nausea vomiting, no diarrhea, abdominal is soft. She had bowel movement 2 days ago. she denies fever or chills, she denies painful frequency urination. Patient has CLL for 15 years, has been follow-up was Dr. Tovar. Lab shows mild leukocytosis WBC 14,000. Kidney function is normal. T-spine CT showed Diffuse pattern of ill-defined lytic foci throughout the bones suggestive of marrow infiltrative process such as lymphoma or leukemia. CT of A/P shnowed Mediastinal, axillary, and pelvic adenopathy along with mild retroperitoneal and mesenteric lymphadenopathy noted, findings stable. There is also splenomegaly unchanged. 1. Upper back pain, CT shows lytic lesion, will do MRI consult oncologist 2. Abdominal pain, abdominal CT was contrast shows normal pancreas liver, stated post cholecystectomy, no acute findings normal liver function and lipase 3. CLL with spine lytic lesion 4. UTI CT shsowed normal kidneys, on ceftriaxone Past Med Surg Social Fam HX - Past Medical History Medical history: cancer, coronary artery disease, diabetes, hypertension, renal disease, other Psychiatric history: anxiety, depression - Past Surgical History Surgical History: appendectomy, cholecystectomy, THERESE/BSO, other - Social History Smoking Status: Never smoker Smokeless Tobacco Status: No Alcohol use: none Drug use: none - Family History Mother Family Member Ethnicity: Non- Living Status: Hx Family Cardiac Disorders: No Hx Family Respiratory Disorders: No Hx Family Cancer: No Hx Family GI Disorders: No Hx Family Endocrine Disorder: Yes (DM) Hx Family Neuromuscular Disorders: No Hx Family Neurologic Disorders: No Hx Family HEENT Disorders: No Hx Family Autoimmune Disorders: No Father Adopted: No Family Member Ethnicity: Non- Living Status: Hx Family Cardiac Disorders: Yes ([place]) Hx Family Respiratory Disorders: No Hx Family Cancer: No Hx Family GI Disorders: No Hx Family Endocrine Disorder: No Hx Family Neuromuscular Disorders: No Hx Family Neurologic Disorders: No Hx Family HEENT Disorders: No Hx Family Autoimmune Disorders: No Internal Medicine - H&P: Meds Aspirin 81 mg PO DAILY 04/05/15 [History] Atorvastatin [Lipitor] 40 mg PO DAILY 04/05/15 [History] Insulin LISPRO [HumaLOG] 5 - 15 units SQ TIDAC 04/05/15 [History] Topiramate [Topamax] 25 mg PO BID 08/23/15 [History] Folic Acid 1 mg PO DAILY #30 tablet 09/18/15 [Rx] Ergocalciferol (VITAMIN D2) [Vitamin D2 (50,000 UNIT)] 50,000 unit PO WE [History] Primidone [Mysoline] 50 mg PO HS 02/28/16 [History] Ascorbic Acid [Vitamin C] 500 mg PO DAILY 03/06/16 [History] Ferrous Sulfate [Iron] 325 mg PO DAILY 03/06/16 [History] Fluticasone Propionate Nasal [Flonase] 100 mcg NS DAILY 11/26/16 [History] Insulin Glargine/Lixisenatide [Soliqua 100 Unit-33 Mcg/ml Pen] 60 unit SQ HS [History] Tramadol HCl [Ultram] 50 mg PO TID 11/26/16 [History] Cyanocobalamin (Vitamin B-12) [Vitamin B-12] 500 mcg PO DAILY 05/06/17 [History] Furosemide [Lasix] 20 mg PO DAILY PRN 05/06/17 [History] Linagliptin [Tradjenta] 5 mg PO DAILY 05/06/17 [History] Loratadine [Claritin] 10 mg PO DAILY 05/06/17 [History] Metoprolol XL (24 HR) Succ [Toprol Xl] 25 mg PO DAILY 05/06/17 [History] Pioglitazone [Actos] 15 mg PO DAILY 05/06/17 [History] Pregabalin [Lyrica] 75 mg PO TID 05/06/17 [History] Sucralfate [Carafate] 1 gm PO QID 05/06/17 [History] Acetaminophen [Tylenol] 650 mg PO Q6HR PRN tablet 07/10/17 [Rx] raNITIdine HCl [Zantac] 150 mg PO DAILY #30 tablet 07/10/17 [Rx] Metoclopramide [Reglan] 5 mg PO TIDAC #60 tablet 08/21/17 [Rx] Benzonatate [Tessalon] 100 mg PO TID PRN #21 capsule 09/09/17 [Rx] Ibrutinib [Imbruvica] 420 cap PO DAILY 09/11/17 [History] Albuterol Neb [Proventil Neb] 2.5 mg IH Q4H PRN #1 inhsol 09/22/17 [Rx] Levofloxacin [Levaquin] 750 mg PO DAILY #4 tablet 09/22/17 [Rx] Magnesium Oxide [Magnesium] 400 mg PO DAILY #30 tablet 09/24/17 [Rx] 3 Allergy/AdvReac Type Severity Reaction Status Date / Time metformin Allergy Nausea Verified 11/05/17 04:28 Sulfa (Sulfonamide Allergy Nausea Verified 11/05/17 04:28 Antibiotics) sulfamethoxazole Allergy Nausea Verified 11/05/17 04:28 [From Bactrim] trimethoprim [From Bactrim] Allergy Nausea Verified 11/05/17 04:28 All Systems PM: A 10-system review of systems was performed and is negative for pertinent findings except as documented above in the HPI. - Constitutional Vitals: Temp Pulse Resp BP Pulse Ox 97.5 F L 85 18 169/88 95 11/05/17 04:28 11/05/17 07:36 11/05/17 06:53 11/05/17 07:36 11/05/17 07:36 General appearance: Present: A&O X 3, pleasant, obese, answers questions appropriately Exam: CONSTITUTIONAL: Patient appears as an age appropriate female well developed, in no acute distress. EYES Clear sclerae, bilateral pupils are equal, reactive to light and accommodation. Extraocular movements are intact RESPIRATORY: No accessory muscle use, bilateral clear to auscultation, no wheezing, no crackles/rales. CARDIOVASCULAR: Regular heart rate, normal S1 and S2, no murmurs GASTROINTESTINAL: bowel sounds present, soft, diffuse upper abdominal tenderness. No hepatosplenomegaly. No bilateral CVA tenderness MUSCULOSKELETAL: Joints in normal range of motion, no clubbing, no edema, no cyanosis. Bilateral peripheral pulses 2+ LYMPHATIC no lymphadenopathy in neck, groin and axilla bilaterally, no thyromegaly. NEUROLOGIC: CN II to XII are grossly intact, no focal neurological deficit. Deep tendon reflexes 2+ bilaterally. Normal light touch sensation to upper and lower extremity PSYCHIATRIC: Oriented x3, with good insight, mood is euthymic. No hallucinations or delusions. SKIN: Skin warm and dry, no rashes, no open wound. Internal Med - H&P Results - Labs CBC & Chem 7: 11/05/17 04:36 11/05/17 04:36 Labs: Short CBC 11/05/17 Range/Units 04:36 WBC 14.1 H (4.3-11.1) K/mcL Hgb 12.8 (11.5-15.4) g/dL Hct 40.2 (35.3-44.9) % Plt Count 140 (140-400) K/mcL Neutrophils # 3.1 (1.6-8.9) K/mcL BMP 11/05/17 04:36 Sodium 140 Potassium 3.9 Chloride 101 Carbon Dioxide 26 BUN 13 Creatinine 0.97 Glucose 216 H Calcium 9.6 Cardiac Enzymes 11/05/17 Range/Units 04:36 Troponin I < 0.03 (< 0.04) ng/mL Liver Function 11/05/17 Range/Units 04:36 Total Bilirubin 0.5 (0.3-1.0) mg/dL Direct Bilirubin 0.1 (0.0-0.2) mg/dL AST 12 L (13-39) Units/L ALT 10 (7-52) Units/L Alkaline Phosphatase 88 (34-104) Units/L Albumin 4.5 (3.5-5.7) g/dL Urine 11/05/17 Range/Units 04:42 Urine Color Yellow (Yellow) Urine Clarity Clear (Clear) Urine pH 7.0 (5.0-8.0) pH Units Ur Specific [place] 1.021 (1.010-1.025) Urine Protein Negative (Neg-Trace) mg/dL Urine Glucose (UA) Normal (Normal) mg/dL - Impressions ITS Impressions Chest X-Ray 11/05/17 05:52 IMPRESSION: No focal airspace disease identified. D/ / Andrea Laura MD / Andrea Laura MD Interpreting Provider: Andrea Laura MD Abdomen/Pelvis CT 11/05/17 05:59 IMPRESSION: 1. Mediastinal, axillary, and pelvic adenopathy along with mild retroperitoneal and mesenteric lymphadenopathy noted, findings stable. There is also splenomegaly unchanged. There is a history of CLL. 2. Interval resolution of ground-glass and centrilobular nodules in the lower lobes reported on prior. 3. No acute infective or inflammatory process. D/ : / 11/05/2017 07:59:39 Mikey Albarado MD / [facility] Interpreting Provider: Mikey Albarado MD Thoracic Spine CT 11/05/17 06:00 IMPRESSION: 1. No acute bony abnormality. 2. Diffuse pattern of ill-defined lytic foci throughout the bones suggestive of marrow infiltrative process such as lymphoma or leukemia. MRI would be helpful to provide more detail. D/ / 11/05/2017 08:00:07 Mikey Albarado MD / [email or web address] Interpreting Provider: Mikey Albarado MD Chest CT 11/05/17 06:03 IMPRESSION: 1. Mediastinal, axillary, and pelvic adenopathy along with mild retroperitoneal and mesenteric lymphadenopathy noted, findings stable. There is also splenomegaly unchanged. There is a history of CLL. 2. Interval resolution of ground-glass and centrilobular nodules in the lower lobes reported on prior. 3. No acute infective or inflammatory process. D/ /05/2017 07:59:39 Mikey Albarado MD / [facility] Interpreting Provider: Mikey Albarado MD - Assessment and plan (1) Back pain Current Visit: Yes Status: Acute Assessment and plan: Patient has acute onset upper back pain, CT spine shows lytic lesion. We will order MRI consult oncologist Plan control with [place] Qualifiers: Back pain location: thoracic back pain Chronicity: acute Back pain laterality: midline Qualified Code(s): M54.6 - Pain in thoracic spine (2) Gastroparesis Current Visit: Yes Status: Acute Assessment and plan: Patient to present to the ED for sudden onset of intractable nausea vomiting and abdominal pain. She has normal liver function normal lipase, she is stated post a cholecystectomy. CT abdominal with contrast did not show any acute process. Most likely from diabetic gastroparesis, will give supportive treatment. NPO, IVF, IV zofran (3) CAD (coronary artery disease) Current Visit: Yes Status: Chronic Assessment and plan: stable Qualifiers: Coronary Disease-Associated Artery/Lesion type: [place] artery [place] vs. transplanted heart: [place] heart Associated angina: without angina Qualified Code(s): I25.10 - Atherosclerotic heart disease of [place] coronary artery without angina pectoris (4) UTI (urinary tract infection) Current Visit: Yes Status: Acute Assessment and plan: on ceftriaxone Qualifiers: Urinary tract infection type: acute cystitis Hematuria presence: without hematuria Qualified Code(s): N30.00 - Acute cystitis without hematuria (5) HTN (hypertension) Current Visit: Yes Status: Chronic Assessment and plan: ocntinue home meds Qualifiers: Hypertension type: essential hypertension Qualified Code(s): I10 - Essential (primary) hypertension (6) CLL (chronic lymphocytic leukemia) Current Visit: Yes Status: Chronic Assessment and plan: will [facility] for lytic spine lesion (7) UTI (urinary tract infection) with pyuria Current Visit: No Status: Acute (8) Obesity (BMI 30-39.9) Current Visit: Yes Status: Chronic (9) Type 2 diabetes mellitus Current Visit: Yes Status: Chronic Assessment and plan: hold oral meds, add SSI Qualifiers: Diabetes mellitus terminal system operator insulin use: with half-way use Diabetes mellitus complication status: with kidney complications Diabetes mellitus complication detail: with chronic kidney disease Chronic kidney disease stage : stage 3 (moderate) Qualified Code(s): E11.22 - Type 2 diabetes mellitus with diabetic chronic kidney disease; N18.3 - Chronic kidney disease, stage 3 ( moderate); N18.3 - Chronic kidney disease, stage 3 (moderate); Z79.4 - exterminator helper termite (current) use of insulin; Z79.4 - exterminator helper termite (current) use of insulin; Z79.4 - exterminator helper termite (current) use of insulin; Z79.4 - exterminator helper termite (current) use of insulin - Time Spent With Patient Total time spent is greater than 50% in coordination of care (as documented) at patient's floor/unit and/or counseling patient: Greater than 35 minutes
[2017-11-05] MEDS ORDERED: Naloxone 0.4 MG/ML INJ IVP PRN (09:30)
[2017-11-05] MEDS ORDERED: OXYCODONE Oral CONC 10 MG/0.5 ML ORAL.SYG SL PRN (09:30)
[2017-11-05] MEDS ORDERED: Gadolinium Contrast Agent (WT Based) IV PRN (09:34)
[2017-11-05] MEDS ORDERED: Dextrose Gel 15 GM/37.5 ML TUBE PO PRN ×2 (09:38)
[2017-11-05] MEDS ORDERED: *HR* Dextrose 50 % in Water (Syg) 50 ML SYRINGE IVP PRN (09:38)
[2017-11-05] MEDS ORDERED: D5% in Water 1,000 ML IVC PRN (09:38)
[2017-11-05] MEDS ORDERED: Benzonatate 100 MG CAPSULE PO PRN (09:45)
[2017-11-05 10:43] LABS: Estimated Average Glucose 163 mg/dl; Hemoglobin A1C 7.3 %
[2017-11-05] MEDS ORDERED: Albuterol 2.5 MG/3 ML NEBULIZER IH PRN (12:00)
[2017-11-05] MEDS: Ondansetron 4 MG/2 ML VIAL IVP PRN ×2 (12:49→21:14)
[2017-11-05] MEDS: Ringers Solution, Lactated 1,000 ML IVC SCH (12:50)
[2017-11-05] MEDS: OXYCODONE Oral CONC 10 MG/0.5 ML ORAL.SYG SL PRN ×2 (13:26→20:24)
[2017-11-05] MEDS ORDERED: *HR* Promethazine 25 MG/ML VIAL IVP PRN (13:30)
[2017-11-05] MEDS: *HR* HYDROmorphone (PF) 1 MG/ML SYRINGE IVP PRN ×2 (14:17→21:15)
[2017-11-05] MEDS: Insulin LISPRO 300 UNITS/3 ML VIAL SQ SCH ×2 (14:26→17:03)
[2017-11-05] MEDS: Cholecalciferol (D-3) 1,000 UNIT TABLET PO SCH (16:58)
[2017-11-05] MEDS: Pregabalin 75 MG CAPSULE PO SCH ×2 (17:31→21:15)
[2017-11-05] MEDS: INSULIN GLARGINE SQ SCH (20:22)
[2017-11-05] MEDS: LIXISENATIDE SQ SCH (20:22)
[2017-11-05] MEDS: Topiramate 25 MG TABLET PO SCH (21:15)
[2017-11-05] MEDS: Primidone 50 MG TABLET PO SCH (21:15)
[2017-11-06] MEDS: Insulin LISPRO 300 UNITS/3 ML VIAL SQ SCH ×6 (00:19→22:22)
[2017-11-06 06:35] LABS: Red Cell Distribution Width 14.5 % (11.5-14.5)
[2017-11-06 06:37] LABS: Basophils % 0.6 %; Eosinophils # 0.1 K/mcL (0.0-0.6); Eosinophils % 1.4 %; Hematocrit 31.6 % (35.3-44.9); Hemoglobin 10.4 g/dL (11.5-15.4); Immature Granulocytes % 1.1 % (0-4); Immature Platelets 4.5 % (1.1-6.1); Lymphocytes % 56.4 %; Mean Corpuscular HGB Conc 32.9 g/dL (31.6-35.5); Mean Corpuscular Hemoglobin 29.3 pg (28.0-33.3); Mean Platelet Volume 11.2 fL (9.4-12.4); Monocytes # 0.4 K/mcL (0.0-1.3); Monocytes % 5.2 %; Neutrophils # 2.5 K/mcL (1.6-8.9); Red Blood Count 3.55 M/mcL (3.82-4.97); Segmented Neutrophils % 35.3 %
[2017-11-06 06:57] LABS: BUN/Creatinine Ratio 14 (6-26); Blood Urea Nitrogen 12 mg/dL (8-23); Calcium 8.7 mg/dL (8.6-10.3); Carbon Dioxide 29 mEq/L (23-29); Chloride 107 mEq/L (98-107); Chol/HDL Ratio 3.5 (0-4.9); Cholesterol 101 mg/dL (< 200); Glucose 139 mg/dL (70-105); HDL Cholesterol 29 mg/dL (40-59); LDL Cholesterol,Calculated 31 mg/dL (0-99); Magnesium 1.4 mg/dL (1.6-2.6); Osmolality,Calculated 298 (280-300); Sodium 143 mEq/L (136-145); Triglycerides 205 mg/dL (< 150); eGFR For African Americans > 60 (> 60); eGFR For Non-African Americans > 60 (> 60)
[2017-11-06 07:08] LABS: Platelet Count 96 K/mcL (140-400)
[2017-11-06] MEDS: cefTRIAXone 1,000 MG in Water for inj. (sterile) 20 ML 10 ML IVP SCH (08:47)
[2017-11-06] MEDS: Aspirin 81 MG TAB.CHEW PO SCH (08:48)
[2017-11-06] MEDS: Topiramate 25 MG TABLET PO SCH ×2 (08:48→21:20)
[2017-11-06] MEDS: Metoprolol XL (24 HR) Succ 25 MG TAB.ER.24H PO SCH (08:48)
[2017-11-06] MEDS: Cyanocobalamin (B-12) 1,000 MCG TABLET PO SCH (08:48)
[2017-11-06] MEDS: Cholecalciferol (D-3) 1,000 UNIT TABLET PO SCH (08:48)
[2017-11-06] MEDS: Famotidine 20 MG TABLET PO SCH (08:48)
[2017-11-06] MEDS: Ascorbic Acid 500 MG TABLET PO SCH (08:48)
[2017-11-06] MEDS: Magnesium Oxide 400 MG TABLET PO SCH (08:51)
[2017-11-06] MEDS: Loratadine 10 MG TABLET PO SCH (08:51)
[2017-11-06] MEDS: Folic Acid 1 MG TABLET PO SCH (08:51)
[2017-11-06] MEDS: OXYCODONE Oral CONC 10 MG/0.5 ML ORAL.SYG SL PRN ×3 (08:51→21:20)
[2017-11-06] MEDS: IBRUTINIB PO SCH (09:41)
[2017-11-06] MEDS ORDERED: Ringers Solution, Lactated 1,000 ML ONE (10:19)
[2017-11-06] MEDS: Pregabalin 75 MG CAPSULE PO SCH ×3 (10:24→21:20)
[2017-11-06] MEDS: Fluticasone Propionate Nasal 50 MCG/SPRAY BOTTLE NS SCH (10:24)
[2017-11-06] MEDS: Ringers Solution, Lactated 1,000 ML IVC SCH (10:26)
--- NOTE | 2017-11-06 11:28 | Internal Med Progress Note ---
Date of Encounter: 11/06/17 Time of Encounter: 11:20 - Assessment and plan (1) Intractable nausea and vomiting Current Visit: No Status: Acute Assessment and plan: Possibly 2/2 to gatroenteritis. Improved with zofran. will advance diet. Plan for possible discharge this pm if patient tolerates diet Qualifiers: Qualified Code(s): R11.2 - Nausea with vomiting, unspecified (2) UTI (urinary tract infection) Current Visit: No Status: Acute Assessment and plan: Continue IV ceftriaxone Qualifiers: Qualified Code(s): N30.00 - Acute cystitis without hematuria (3) Back pain Current Visit: No Status: Acute Assessment and plan: Physical therapy. Pain control as needed Qualifiers: Qualified Code(s): M54.6 - Pain in thoracic spine (4) DVT prophylaxis Current Visit: No Status: Acute Assessment and plan: Heparin sc (5) Hypokalemia Current Visit: No Status: Acute Assessment and plan: Replaced - Time Spent With Patient Total time spent is greater than 50% in coordination of care (as documented) at patient's floor/unit and/or counseling patient: - Subjective Interval history: No acute events overnight - Constitutional Vitals: Temp Pulse Resp BP Pulse Ox 98.2 F 96 16 119/71 97 11/06/17 07:48 11/06/17 07:48 11/06/17 07:48 11/06/17 07:48 11/06/17 09:00 General appearance: Present: A&O X 3, pleasant, obese, answers questions appropriately - Head Head exam: Present: atraumatic, normocephalic - Eye Eye exam: Present: PERRL, conjuntiva pink, sclera anicteric Pupils: Present: PERRL - Neck Neck exam general surgery: Present: supple, trachea midline. Absent: lymphadenopathy - Respiratory Respiratory exam: Present: CTAB. Absent: accessory muscle use, rales, rhonchi, wheezes - Cardiovascular Cardiovascular exam: Present: RRR, +S1, +S2. Absent: diastolic murmur, gallop, rubs, systolic murmur - GI/Abdominal GI/Abdominal exam: Present: normal bowel sounds, soft, no peritoneal signs. Absent: distended, tenderness - Extremities Exam Extremities exam: Present: warm, radial pulses palpable and symmetrical. Absent : calf tenderness, cyanotic, pedal edema - Neurological Exam Neurological exam: Present: CN II-XII intact, oriented X3, no focal deficits. Absent: pronater drift, facial droop, speech deficit - Skin Skin exam: Present: dry, intact Internal Medicine: Result - Labs CBC & Chem 7: 11/06/17 06:09 11/06/17 06:09 Labs: Short CBC 11/06/17 Range/Units 06:09 WBC 7.0 D (4.3-11.1) K/mcL Hgb 10.4 L D (11.5-15.4) g/dL Hct 31.6 L (35.3-44.9) % Plt Count 96 L (140-400) K/mcL Neutrophils # 2.5 (1.6-8.9) K/mcL BMP 11/06/17 06:09 Sodium 143 Potassium 3.0 L Chloride 107 Carbon Dioxide 29 BUN 12 Creatinine 0.85 Glucose 139 H Calcium 8.7 - ABG Interpretation ABG results: PT/INR, D-dimer PT 11.0 Seconds (9.4-12.1) 11/05/17 04:36 Consult Discharge Plan - Plan Referrals: Mariaelena Vasquez, [employer] [Primary Care Provider] -
[2017-11-06] MEDS: Acetaminophen 325 MG TABLET PO PRN (11:33)
[2017-11-06] MEDS: Potassium Chloride Elixir 20 MEQ/15 ML UDC PO SCH ×2 (11:56→21:19)
--- NOTE | 2017-11-06 15:37 | Oncology Inp Consult Note ---
<Parul Hamm - Last Filed: 11/06/17 15:35> Date of Encounter: 11/06/17 Time of Encounter: 15:35 Assessment and Plan (1) CLL (chronic lymphocytic leukemia) Status: Chronic Assessment and plan: Not previously required treatment. Her lymphocyte count has normalized today. Denies B Symptoms 2% blasts noted on tech review of peripheral CBC-check peripheral blood flow and peripheral blood smear with pathology review to assess for true blasts. Tech also noted myelocytes and metamyelocytes which may be present in setting of infectious process (gastro virus and UTI) versus malignant process. May consider bone marrow biopsy in future if needed if counts worsen or pending further workup-this would be done on an outpatient basis per treating oncologist Dr. Estes Acute mild anemia and thrombocytopenia- patient appears to have history of acute anemia/thrombocytopenia which subsequently spontaneously resolves- prior workup negative. Currently has presumed gastroenteritis and UTI-plan to continue to monitor at arranged follow up with Dr. Estes, no intervention at this time. Office will call patient next week to schedule a follow up appointment. (2) Back pain Status: Acute Assessment and plan: Patient reports issues with chronic back pain however, pain to thoracic region is acute, worse than chronic pain and persistent. Etiology unclear. CT thoracic spine revealed Diffuse pattern of ill-defined lytic foci throughout the bones however, and likely consistent with patients history of CLL. May consider further workup which may be done on an outpatient basis such as bone survey or further bone marrow biopsy as discussed above. She recently completed screening mammogram with tomosynthesis on 10/30/17 which was BIRADS category 2- 1. No evidence of bilateral primary breast malignancy. 2. Redemonstration of bilateral axillary lymphadenopathy more completely evaluated on prior CTA chest 09/13/2017 consistent with history of CLL. Qualifiers: Back pain location: thoracic back pain Chronicity: acute Back pain laterality: midline Qualified Code(s): M54.6 - Pain in thoracic spine (3) Abdominal pain Status: Acute Assessment and plan: Empirically treating with reglan for gastroparesis. CT abdomen/pelvis- with no acute findings, does not mediastinal, axillary, and pelvic adenopathy along with mild retroperitoneal and mesenteric lymphadenopathy noted, findings stable. There is also splenomegaly unchanged. Please refer to Dr. Trevino's attestation below for additional details. Qualifiers: Abdominal location: epigastric Qualified Code(s): R10.13 - Epigastric pain - Data of Consult Patient: known to practice within the last 3 years Consult date: 11/06/17 Requesting Physician: Angelic Martins MD Primary Care Provider: Mariaelena Vasquez CNP - Consult Narrative Reason for consult: CLL History of present illness: Ms. Vargas is a 67 year old female diagnosed with CLL/SLL with Normal cytogenetics by fish panel. She has required no prior treatment, was planned to start Ibrutinib recently however, her thrombocytopenia and mild anemia spontaneously had resolved at her last visit, she denied B symptoms, so no treatment was initiated. Patient presented to ER with intractable nausea, vomiting, abdominal pain, back pain and UTI. Oncology consulted for imaging review. Past Med Surg Social Fam HX - Past Medical History Medical history: cancer, coronary artery disease, diabetes, hypertension, renal disease, other Psychiatric history: anxiety, depression - Past Surgical History Surgical History: appendectomy, cholecystectomy, THERESE/BSO, other - Social History Smoking Status: Never smoker Smokeless Tobacco Status: No Alcohol use: none Drug use: none - Family History Mother Family Member Ethnicity: Non- Living Status: Hx Family Cardiac Disorders: No Hx Family Respiratory Disorders: No Hx Family Cancer: No Hx Family GI Disorders: No Hx Family Endocrine Disorder: Yes (DM) Hx Family Neuromuscular Disorders: No Hx Family Neurologic Disorders: No Hx Family HEENT Disorders: No Hx Family Autoimmune Disorders: No Father Adopted: No Family Member Ethnicity: Non- Living Status: Hx Family Cardiac Disorders: Yes ([place]) Hx Family Respiratory Disorders: No Hx Family Cancer: No Hx Family GI Disorders: No Hx Family Endocrine Disorder: No Hx Family Neuromuscular Disorders: No Hx Family Neurologic Disorders: No Hx Family HEENT Disorders: No Hx Family Autoimmune Disorders: No Medications and Allergies Aspirin 81 mg PO DAILY 04/05/15 [History] Atorvastatin [Lipitor] 40 mg PO DAILY 04/05/15 [History] Insulin LISPRO [HumaLOG] 5 - 15 units SQ TIDAC 04/05/15 [History] Topiramate [Topamax] 25 mg PO BID 08/23/15 [History] Folic Acid 1 mg PO DAILY #30 tablet 09/18/15 [Rx] Ergocalciferol (VITAMIN D2) [Vitamin D2 (50,000 UNIT)] 50,000 unit PO WE 09/15/ 16 [History] Primidone [Mysoline] 50 mg PO HS 02/28/16 [History] Ascorbic Acid [Vitamin C] 500 mg PO DAILY 03/06/16 [History] Ferrous Sulfate [Iron] 325 mg PO DAILY 03/06/16 [History] Fluticasone Propionate Nasal [Flonase] 100 mcg NS DAILY 11/26/16 [History] Insulin Glargine/Lixisenatide [Soliqua 100 Unit-33 Mcg/ml Pen] 60 unit SQ HS [History] Tramadol HCl [Ultram] 50 mg PO TID 11/26/16 [History] Cyanocobalamin (Vitamin B-12) [Vitamin B-12] 500 mcg PO DAILY 05/06/17 [History] Furosemide [Lasix] 20 mg PO DAILY PRN 05/06/17 [History] Linagliptin [Tradjenta] 5 mg PO DAILY 05/06/17 [History] Loratadine [Claritin] 10 mg PO DAILY 05/06/17 [History] Metoprolol XL (24 HR) Succ [Toprol Xl] 25 mg PO DAILY 05/06/17 [History] Pioglitazone [Actos] 15 mg PO DAILY 05/06/17 [History] Pregabalin [Lyrica] 100 mg PO TID 05/06/17 [History] Sucralfate [Carafate] 1 gm PO QID 05/06/17 [History] Acetaminophen [Tylenol] 650 mg PO Q6HR PRN tablet 07/10/17 [Rx] raNITIdine HCl [Zantac] 150 mg PO DAILY #30 tablet 07/10/17 [Rx] Metoclopramide [Reglan] 5 mg PO TIDAC #60 tablet 08/21/17 [Rx] Albuterol Neb [Proventil Neb] 2.5 mg IH Q4H PRN #1 inhsol 09/22/17 [Rx] Ibrutinib [Imbruvica] 420 mg PO DAILY 11/05/17 [History] Omeprazole [PriLOSEC] 40 mg PO DAILY 11/05/17 [History] 3 Allergy/AdvReac Type Severity Reaction Status Date / Time metformin Allergy Nausea Verified 11/05/17 04:28 Sulfa (Sulfonamide Allergy Nausea Verified 11/05/17 04:28 Antibiotics) sulfamethoxazole Allergy Nausea Verified 11/05/17 04:28 [From Bactrim] trimethoprim [From Bactrim] Allergy Nausea Verified 11/05/17 04:28 Constitutional: Present: fatigue, weakness. Absent: anorexia, chills, fever(s) , night sweats, weight loss Eyes: Absent: change in vision Nose, mouth and throat: Absent: dysphagia Cardiovascular: Absent: chest pain, irregular heart rhythm Respiratory: Absent: cough, dyspnea Gastrointestinal: Present: as per HPI, abdominal pain, diarrhea, nausea. Absent : vomiting Genitourinary: Absent: dysuria Musculoskeletal: Present: back pain, muscle weakness Integumentary: Absent: rash, wounds Neurological: Absent: focal weakness, frequent falls Psychiatric: Absent: change in appetite Hematologic/Lymphatic: Present: as per HPI Oncology - Exam - Constitutional Vitals: Temp Pulse Resp BP Pulse Ox 98.4 F 76 18 156/79 97 11/06/17 11:41 11/06/17 11:41 11/06/17 11:41 11/06/17 11:41 11/06/17 11:41 General appearance: cooperative, no acute distress, obese, no febrile - Head Head exam: Present: atraumatic - ENT ENT exam: Present: mucous membranes moist - Respiratory Respiratory exam: Present: CTAB. Absent: respiratory distress - GI/Abdominal GI/Abdominal exam: Present: normal bowel sounds, soft. Absent: guarding, rebound, tenderness - Extremities Exam Extremities exam: Present: pedal edema. Absent: calf tenderness - Neurological Exam Neurological exam: Present: alert, oriented X3, no focal deficits, strengths equal and symetr throughout - Psychiatric Psychiatric exam: Present: normal affect, normal mood - Skin Skin exam: Present: dry, intact, normal color, warm Oncology - Results Labs: 11/06/17 11/06/17 11/06/17 11:29 06:09 06:09 WBC 7.0 D RBC 3.55 L Hgb 10.4 L D Hct 31.6 L MCV 89.0 MCH 29.3 MCHC 32.9 RDW 14.5 Plt Count 96 L MPV 11.2 Immature Gran % 1.1 Seg Neutrophils % 35.3 Lymphocytes % 56.4 Monocytes % 5.2 Eosinophils % 1.4 Basophils % 0.6 Neutrophils # 2.5 Lymphocytes # 4.0 Monocytes # 0.4 Eosinophils # 0.1 Basophils # 0.0 Immature Plt Fraction 4.5 Sodium 143 Potassium 3.0 L Chloride 107 Carbon Dioxide 29 BUN 12 Creatinine 0.85 Est GFR ( Amer) > 60 Est GFR (Non-Af Amer) > 60 BUN/Creatinine Ratio 14 Glucose 139 H POC Glucose 142 H Calculated Osmolality 298 Calcium 8.7 Magnesium 1.4 L Triglycerides 205 H Cholesterol 101 LDL Cholesterol, Calc 31 VLDL Cholesterol, Calc 41 H HDL Cholesterol 29 L Cholesterol/HDL Ratio 3.5 11/06/17 11/05/17 11/05/17 05:22 23:54 16:42 WBC RBC Hgb Hct MCV MCH MCHC RDW Plt Count MPV Immature Gran % Seg Neutrophils % Lymphocytes % Monocytes % Eosinophils % Basophils % Neutrophils # Lymphocytes # Monocytes # Eosinophils # Basophils # Immature Plt Fraction Sodium Potassium Chloride Carbon Dioxide BUN Creatinine Est GFR ( Amer) Est GFR (Non-Af Amer) BUN/Creatinine Ratio Glucose POC Glucose 139 H 179 H 200 H Calculated Osmolality Calcium Magnesium Triglycerides Cholesterol LDL Cholesterol, Calc VLDL Cholesterol, Calc HDL Cholesterol Cholesterol/HDL Ratio 11/05/17 13:03 WBC RBC Hgb Hct MCV MCH MCHC RDW Plt Count MPV Immature Gran % Seg Neutrophils % Lymphocytes % Monocytes % Eosinophils % Basophils % Neutrophils # Lymphocytes # Monocytes # Eosinophils # Basophils # Immature Plt Fraction Sodium Potassium Chloride Carbon Dioxide BUN Creatinine Est GFR ( Amer) Est GFR (Non-Af Amer) BUN/Creatinine Ratio Glucose POC Glucose 182 H Calculated Osmolality Calcium Magnesium Triglycerides Cholesterol LDL Cholesterol, Calc VLDL Cholesterol, Calc HDL Cholesterol Cholesterol/HDL Ratio Consult Discharge Plan - Plan Referrals: Mariaelena Vasquez CNP [Primary Care Provider] - <Alfonso Jimenez - Last Filed: 11/06/17 16:51> Date of Encounter: 11/06/17 - Data of Consult Requesting Physician: Angelic Martins MD Primary Care Provider: Mariaelena Vasquez CNP - Consult Narrative History of present illness: Patient seen and examined bedside, 11/05/17. Imaging findings reviewed, peripheral smear findings reviewed. CT imaging findings, steady lymphadenopathy splenomegaly as well as lab works not indicated for progression. She will follow-up outpatient with Dr. Estes for further evaluation and need for any therapy. I examined this patient and my medical decision-making was reviewed with the Advanced Practice Nurse, Parul Hamm. I agree with the documented findings, disposition and treatment plan as described except to the extent set forth below. Oncology - Exam - Constitutional Vitals: Temp Pulse Resp BP Pulse Ox 98.2 F 78 18 146/71 97 11/06/17 16:26 11/06/17 16:26 11/06/17 16:26 11/06/17 16:26 11/06/17 16:26 Oncology - Results Labs: 11/06/17 11/06/17 11/06/17 11:29 06:09 06:09 WBC 7.0 D RBC 3.55 L Hgb 10.4 L D Hct 31.6 L MCV 89.0 MCH 29.3 MCHC 32.9 RDW 14.5 Plt Count 96 L MPV 11.2 Immature Gran % 1.1 Seg Neutrophils % 35.3 Lymphocytes % 56.4 Monocytes % 5.2 Eosinophils % 1.4 Basophils % 0.6 Neutrophils # 2.5 Lymphocytes # 4.0 Monocytes # 0.4 Eosinophils # 0.1 Basophils # 0.0 Immature Plt Fraction 4.5 Sodium 143 Potassium 3.0 L Chloride 107 Carbon Dioxide 29 BUN 12 Creatinine 0.85 Est GFR ( Amer) > 60 Est GFR (Non-Af Amer) > 60 BUN/Creatinine Ratio 14 Glucose 139 H POC Glucose 142 H Calculated Osmolality 298 Calcium 8.7 Magnesium 1.4 L Triglycerides 205 H Cholesterol 101 LDL Cholesterol, Calc 31 VLDL Cholesterol, Calc 41 H HDL Cholesterol 29 L Cholesterol/HDL Ratio 3.5 11/06/17 11/05/17 11/05/17 05:22 23:54 16:42 WBC RBC Hgb Hct MCV MCH MCHC RDW Plt Count MPV Immature Gran % Seg Neutrophils % Lymphocytes % Monocytes % Eosinophils % Basophils % Neutrophils # Lymphocytes # Monocytes # Eosinophils # Basophils # Immature Plt Fraction Sodium Potassium Chloride Carbon Dioxide BUN Creatinine Est GFR ( Amer) Est GFR (Non-Af Amer) BUN/Creatinine Ratio Glucose POC Glucose 139 H 179 H 200 H Calculated Osmolality Calcium Magnesium Triglycerides Cholesterol LDL Cholesterol, Calc VLDL Cholesterol, Calc HDL Cholesterol Cholesterol/HDL Ratio 11/05/17 13:03 WBC RBC Hgb Hct MCV MCH MCHC RDW Plt Count MPV Immature Gran % Seg Neutrophils % Lymphocytes % Monocytes % Eosinophils % Basophils % Neutrophils # Lymphocytes # Monocytes # Eosinophils # Basophils # Immature Plt Fraction Sodium Potassium Chloride Carbon Dioxide BUN Creatinine Est GFR ( Amer) Est GFR (Non-Af Amer) BUN/Creatinine Ratio Glucose POC Glucose 182 H Calculated Osmolality Calcium Magnesium Triglycerides Cholesterol LDL Cholesterol, Calc VLDL Cholesterol, Calc HDL Cholesterol Cholesterol/HDL Ratio
[2017-11-06] MEDS: *HR* Heparin 5,000 UNIT/ML VIAL SQ SCH (16:53)
[2017-11-06] MEDS: INSULIN GLARGINE SQ SCH (21:16)
[2017-11-06] MEDS: LIXISENATIDE SQ SCH (21:16)
[2017-11-06] MEDS: Primidone 50 MG TABLET PO SCH (21:20)
[2017-11-07] MEDS: OXYCODONE Oral CONC 10 MG/0.5 ML ORAL.SYG SL PRN ×4 (05:19→19:16)
[2017-11-07] MEDS: *HR* Heparin 5,000 UNIT/ML VIAL SQ SCH ×2 (05:20→16:46)
[2017-11-07] MEDS: Cyanocobalamin (B-12) 1,000 MCG TABLET PO SCH (09:22)
[2017-11-07] MEDS: cefTRIAXone 1,000 MG in Water for inj. (sterile) 20 ML 10 ML IVP SCH (09:22)
[2017-11-07] MEDS: Ascorbic Acid 500 MG TABLET PO SCH (09:24)
[2017-11-07] MEDS: Famotidine 20 MG TABLET PO SCH (09:25)
[2017-11-07] MEDS: Folic Acid 1 MG TABLET PO SCH (09:25)
[2017-11-07] MEDS: Pregabalin 75 MG CAPSULE PO SCH ×3 (09:25→21:21)
[2017-11-07] MEDS: Aspirin 81 MG TAB.CHEW PO SCH (09:25)
[2017-11-07] MEDS: Loratadine 10 MG TABLET PO SCH (09:25)
[2017-11-07] MEDS: Topiramate 25 MG TABLET PO SCH ×2 (09:25→21:21)
[2017-11-07] MEDS: Cholecalciferol (D-3) 1,000 UNIT TABLET PO SCH (09:26)
[2017-11-07] MEDS: Magnesium Oxide 400 MG TABLET PO SCH (09:26)
[2017-11-07] MEDS: Metoprolol XL (24 HR) Succ 25 MG TAB.ER.24H PO SCH (09:26)
[2017-11-07] MEDS: Insulin LISPRO 300 UNITS/3 ML VIAL SQ SCH ×4 (09:28→21:24)
[2017-11-07] MEDS: IBRUTINIB PO SCH (09:35)
[2017-11-07] MEDS: Fluticasone Propionate Nasal 50 MCG/SPRAY BOTTLE NS SCH (09:37)
[2017-11-07] MEDS: Acetaminophen 325 MG TABLET PO PRN (10:45)
--- NOTE | 2017-11-07 12:09 | Internal Med Progress Note ---
Date of Encounter: 11/07/17 Time of Encounter: 12:00 - Assessment and plan (1) Intractable nausea and vomiting Current Visit: No Status: Acute Assessment and plan: Possibly 2/2 to gatroenteritis. Improved with zofran. will advance diet. Plan for possible discharge this pm if patient tolerates diet and is cleared by physical therapy Qualifiers: Vomiting type: unspecified Qualified Code(s): R11.2 - Nausea with vomiting , unspecified (2) UTI (urinary tract infection) Current Visit: No Status: Acute Assessment and plan: Continue IV ceftriaxone Qualifiers: Urinary tract infection type: acute cystitis Hematuria presence: without hematuria Qualified Code(s): N30.00 - Acute cystitis without hematuria (3) Back pain Current Visit: No Status: Acute Assessment and plan: Physical therapy. Pain control as needed Qualifiers: Back pain location: thoracic back pain Chronicity: acute Back pain laterality: midline Qualified Code(s): M54.6 - Pain in thoracic spine (4) DVT prophylaxis Current Visit: No Status: Acute Assessment and plan: Heparin sc (5) Hypokalemia Current Visit: No Status: Acute Assessment and plan: Replaced (6) CLL (chronic lymphocytic leukemia) Current Visit: No Status: Chronic Assessment and plan: Patient complained of back and shoulder pain. MRI showed no new lesions. seen by oncology. Plan for outpatient bone scan - Time Spent With Patient Total time spent is greater than 50% in coordination of care (as documented) at patient's floor/unit and/or counseling patient: - Subjective Interval history: No acute events overnight - Constitutional Vitals: Temp Pulse Resp BP Pulse Ox 98.5 F 78 16 131/80 96 11/07/17 11:44 11/07/17 11:44 11/07/17 11:44 11/07/17 11:44 11/07/17 11:44 General appearance: Present: A&O X 3, pleasant, obese, answers questions appropriately - Head Head exam: Present: atraumatic, normocephalic - Eye Eye exam: Present: PERRL, conjuntiva pink, sclera anicteric Pupils: Present: PERRL - Neck Neck exam general surgery: Present: supple, trachea midline. Absent: lymphadenopathy - Respiratory Respiratory exam: Present: CTAB. Absent: accessory muscle use, rales, rhonchi, wheezes - Cardiovascular Cardiovascular exam: Present: RRR, +S1, +S2. Absent: diastolic murmur, gallop, rubs, systolic murmur - GI/Abdominal GI/Abdominal exam: Present: normal bowel sounds, soft, no peritoneal signs. Absent: distended, tenderness - Extremities Exam Extremities exam: Present: warm, radial pulses palpable and symmetrical. Absent : calf tenderness, cyanotic, pedal edema - Neurological Exam Neurological exam: Present: CN II-XII intact, oriented X3, no focal deficits. Absent: pronater drift, facial droop, speech deficit - Skin Skin exam: Present: dry, intact Internal Medicine: Result - Labs CBC & Chem 7: 11/06/17 06:09 11/06/17 06:09 - ABG Interpretation ABG results: PT/INR, D-dimer PT 11.0 Seconds (9.4-12.1) 11/05/17 04:36 Consult Discharge Plan - Plan Referrals: Mariaelena Vasquez, SP[employer]IT[employer] MINISTER [Primary Care Provider] -
[2017-11-07] MEDS: Primidone 50 MG TABLET PO SCH (21:21)
[2017-11-08] MEDS: LIXISENATIDE SQ SCH (00:11)
[2017-11-08] MEDS: INSULIN GLARGINE SQ SCH (00:11)
[2017-11-08] MEDS: OXYCODONE Oral CONC 10 MG/0.5 ML ORAL.SYG SL PRN ×4 (02:40→19:53)
[2017-11-08] MEDS: *HR* Heparin 5,000 UNIT/ML VIAL SQ SCH ×2 (05:50→17:24)
[2017-11-08] MEDS: cefTRIAXone 1,000 MG in Water for inj. (sterile) 20 ML 10 ML IVP SCH (08:46)
[2017-11-08] MEDS: Loratadine 10 MG TABLET PO SCH (08:47)
[2017-11-08] MEDS: Pregabalin 75 MG CAPSULE PO SCH ×3 (08:47→19:54)
[2017-11-08] MEDS: Cyanocobalamin (B-12) 1,000 MCG TABLET PO SCH (08:47)
[2017-11-08] MEDS: Ascorbic Acid 500 MG TABLET PO SCH (08:47)
[2017-11-08] MEDS: Magnesium Oxide 400 MG TABLET PO SCH (08:47)
[2017-11-08] MEDS: Topiramate 25 MG TABLET PO SCH ×2 (08:48→19:54)
[2017-11-08] MEDS: Metoprolol XL (24 HR) Succ 25 MG TAB.ER.24H PO SCH (08:48)
[2017-11-08] MEDS: Cholecalciferol (D-3) 1,000 UNIT TABLET PO SCH (08:48)
[2017-11-08] MEDS: Famotidine 20 MG TABLET PO SCH (08:48)
[2017-11-08] MEDS: Folic Acid 1 MG TABLET PO SCH (08:52)
[2017-11-08] MEDS: Aspirin 81 MG TAB.CHEW PO SCH (08:52)
[2017-11-08] MEDS: IBRUTINIB PO SCH (08:52)
[2017-11-08] MEDS: Fluticasone Propionate Nasal 50 MCG/SPRAY BOTTLE NS SCH (08:52)
[2017-11-08] MEDS: Insulin LISPRO 300 UNITS/3 ML VIAL SQ SCH ×4 (09:01→20:30)
--- NOTE | 2017-11-08 09:27 | Oncology Inp Progress Note ---
Date of Encounter: 11/08/17 Time of Encounter: 08:00 (1) CLL (chronic lymphocytic leukemia) Current Visit: No Status: Chronic Assessment and plan: Patient with a history of chronic lymphocytic leukemia, with MRI showing back infiltrated area due to leukemia, her CBC is overall stable, fluctuating hemoglobin and platelets likely due to hypersplenism, recent infectious process. History of UTI, continue antibiotic regimen. Back pain on medications, consider physical therapy. The patient to follow-up routinely for monitoring her CLL. Oncology: Subj Interval history: Patient continues to feel better, still complains of back discomfort. - Constitutional Vitals: Vital Signs Temp Pulse Resp BP Pulse Ox 11/08/17 08:04 98 11/08/17 07:57 98.1 F 79 16 126/72 98 11/08/17 03:32 97.8 F 71 15 145/72 97 11/07/17 19:42 97.9 F 80 16 151/86 97 11/07/17 15:20 98.4 F 76 16 125/69 97 11/07/17 11:44 98.5 F 78 16 131/80 96 Intake and Output 11/07/17 11/08/17 11/08/17 23:59 07:59 15:59 Intake Total 360 / 360 0 / 0 Output Total 900 / 900 500 / 500 Balance -540 / -540 -500 / -500 Intake: Oral 360 / 360 0 / 0 Output: Urine 900 / 900 500 / 500 Other: Meal Dinner Percent of Meal Consumed 100% Weight 106 kg Blood Glucose* 205 254 Patient Weight 11/08/17 23:59 Weight 106 kg General appearance: obese - Head Head exam: Present: atraumatic, normal inspection - Eye Eye exam: Present: sclera anicteric - ENT ENT exam: Present: normal exam - Respiratory Respiratory exam: Present: CTAB - Cardiovascular Cardiovascular exam: Present: +S1, +S2 - Neurological Exam Neurological exam: Present: alert, CN II-XII intact, oriented X3, no focal deficits Oncology: Obj Data - Labs CBC & Chem 7: 11/06/17 06:09 11/06/17 06:09 Labs: Laboratory Results - last 24 hr 11/06/17 11/07/17 11/07/17 19:05 11:46 16:07 POC Glucose 205 H 174 H Specimen Rejected Miscellaneous 11/07/17 19:40 POC Glucose 205 H Specimen Rejected - ABG Interpretation ABG results: PT/INR, D-dimer PT 11.0 Seconds (9.4-12.1) 11/05/17 04:36 Consult Discharge Plan - Plan Referrals: Mariaelena Vasquez, RN HOME HEALTH [Primary Care Provider] -
--- NOTE | 2017-11-08 11:37 | Internal Med Progress Note ---
Date of Encounter: 11/08/17 Time of Encounter: 11:35 - Assessment and plan (1) Intractable nausea and vomiting Current Visit: No Status: Acute Assessment and plan: Possibly 2/2 to gatroenteritis. Resolved with zofran. Tolerating diet. Plan for possible discharge this pm if patient tolerates diet and is cleared by physical therapy Qualifiers: Vomiting type: unspecified Qualified Code(s): R11.2 - Nausea with vomiting , unspecified (2) UTI (urinary tract infection) Current Visit: No Status: Acute Assessment and plan: Continue IV ceftriaxone Qualifiers: Urinary tract infection type: acute cystitis Hematuria presence: without hematuria Qualified Code(s): N30.00 - Acute cystitis without hematuria (3) Back pain Current Visit: No Status: Acute Assessment and plan: Physical therapy. Pain control as needed. awaiting PT recs for discharge planning Qualifiers: Back pain location: thoracic back pain Chronicity: acute Back pain laterality: midline Qualified Code(s): M54.6 - Pain in thoracic spine (4) DVT prophylaxis Current Visit: No Status: Acute Assessment and plan: Heparin sc (5) Hypokalemia Current Visit: No Status: Acute Assessment and plan: Replaced (6) CLL (chronic lymphocytic leukemia) Current Visit: No Status: Chronic Assessment and plan: Patient complained of back and shoulder pain. MRI showed no new lesions. seen by oncology. Plan for outpatient bone scan - Time Spent With Patient Total time spent is greater than 50% in coordination of care (as documented) at patient's floor/unit and/or counseling patient: - Subjective Interval history: No acute events overnight - Constitutional Vitals: Temp Pulse Resp BP Pulse Ox 98.1 F 79 16 126/72 98 11/08/17 07:57 11/08/17 07:57 11/08/17 07:57 11/08/17 07:57 11/08/17 08:04 General appearance: Present: A&O X 3, pleasant, obese, answers questions appropriately - Head Head exam: Present: atraumatic, normocephalic - Eye Eye exam: Present: PERRL, conjuntiva pink, sclera anicteric Pupils: Present: PERRL - Neck Neck exam general surgery: Present: supple, trachea midline. Absent: lymphadenopathy - Respiratory Respiratory exam: Present: CTAB. Absent: accessory muscle use, rales, rhonchi, wheezes - Cardiovascular Cardiovascular exam: Present: RRR, +S1, +S2. Absent: diastolic murmur, gallop, rubs, systolic murmur - GI/Abdominal GI/Abdominal exam: Present: normal bowel sounds, soft, no peritoneal signs. Absent: distended, tenderness - Extremities Exam Extremities exam: Present: warm, radial pulses palpable and symmetrical. Absent : calf tenderness, cyanotic, pedal edema - Neurological Exam Neurological exam: Present: CN II-XII intact, oriented X3, no focal deficits. Absent: pronater drift, facial droop, speech deficit - Skin Skin exam: Present: dry, intact Internal Medicine: Result - Labs CBC & Chem 7: 11/06/17 06:09 11/06/17 06:09 - ABG Interpretation ABG results: PT/INR, D-dimer PT 11.0 Seconds (9.4-12.1) 11/05/17 04:36 Consult Discharge Plan - Plan Referrals: Mariaelena Vasquez, [employer] E[employer]ICIAN [Primary Care Provider] -
[2017-11-08] MEDS: Primidone 50 MG TABLET PO SCH (19:54)
[2017-11-09] MEDS: OXYCODONE Oral CONC 10 MG/0.5 ML ORAL.SYG SL PRN ×4 (02:07→16:39)
[2017-11-09] MEDS: LIXISENATIDE SQ SCH ×2 (02:09→20:17)
[2017-11-09] MEDS: INSULIN GLARGINE SQ SCH ×2 (02:09→20:17)
[2017-11-09] MEDS: *HR* Heparin 5,000 UNIT/ML VIAL SQ SCH ×2 (05:35→17:31)
[2017-11-09] MEDS: Fluticasone Propionate Nasal 50 MCG/SPRAY BOTTLE NS SCH (07:41)
[2017-11-09] MEDS: cefTRIAXone 1,000 MG in Water for inj. (sterile) 20 ML 10 ML IVP SCH (07:41)
[2017-11-09] MEDS: Insulin LISPRO 300 UNITS/3 ML VIAL SQ SCH ×4 (07:44→21:11)
[2017-11-09] MEDS: Metoprolol XL (24 HR) Succ 25 MG TAB.ER.24H PO SCH (07:45)
[2017-11-09] MEDS: Loratadine 10 MG TABLET PO SCH (07:46)
[2017-11-09] MEDS: Aspirin 81 MG TAB.CHEW PO SCH (07:46)
[2017-11-09] MEDS: Folic Acid 1 MG TABLET PO SCH (07:46)
[2017-11-09] MEDS: Magnesium Oxide 400 MG TABLET PO SCH (07:47)
[2017-11-09] MEDS: Ascorbic Acid 500 MG TABLET PO SCH (07:47)
[2017-11-09] MEDS: Famotidine 20 MG TABLET PO SCH (07:47)
[2017-11-09] MEDS: Topiramate 25 MG TABLET PO SCH ×2 (07:47→20:17)
[2017-11-09] MEDS: Pregabalin 75 MG CAPSULE PO SCH ×3 (07:47→20:15)
[2017-11-09] MEDS: Cyanocobalamin (B-12) 1,000 MCG TABLET PO SCH (07:47)
[2017-11-09] MEDS: IBRUTINIB PO SCH (07:47)
[2017-11-09] MEDS: Cholecalciferol (D-3) 1,000 UNIT TABLET PO SCH (07:48)
--- NOTE | 2017-11-09 10:54 | Internal Med Progress Note ---
Date of Encounter: 11/09/17 Time of Encounter: 10:50 - Assessment and plan (1) Intractable nausea and vomiting Current Visit: No Status: Acute Assessment and plan: Possibly 2/2 to gatroenteritis. Resolved with zofran. Tolerating diet. Plan for discharge. Awaiting ECF placement Qualifiers: Vomiting type: unspecified Qualified Code(s): R11.2 - Nausea with vomiting , unspecified (2) UTI (urinary tract infection) Current Visit: No Status: Acute Assessment and plan: Continue IV ceftriaxone Qualifiers: Urinary tract infection type: acute cystitis Hematuria presence: without hematuria Qualified Code(s): N30.00 - Acute cystitis without hematuria (3) Back pain Current Visit: No Status: Acute Assessment and plan: Physical therapy. Pain control as needed. Pt recommend discahrge to SNF. Awaiting placement Qualifiers: Back pain location: thoracic back pain Chronicity: acute Back pain laterality: midline Qualified Code(s): M54.6 - Pain in thoracic spine (4) DVT prophylaxis Current Visit: No Status: Acute Assessment and plan: Heparin sc (5) Hypokalemia Current Visit: No Status: Acute Assessment and plan: Replaced (6) CLL (chronic lymphocytic leukemia) Current Visit: No Status: Chronic Assessment and plan: Patient complained of back and shoulder pain. MRI showed no new lesions. seen by oncology. Plan for outpatient bone scan - Time Spent With Patient Total time spent is greater than 50% in coordination of care (as documented) at patient's floor/unit and/or counseling patient: - Subjective Interval history: No acute events overnight - Constitutional Vitals: Temp Pulse Resp BP Pulse Ox 98.3 F 78 16 129/81 93 11/09/17 07:23 11/09/17 07:23 11/09/17 07:23 11/09/17 07:23 11/09/17 07:23 General appearance: Present: A&O X 3, pleasant, obese, answers questions appropriately - Head Head exam: Present: atraumatic, normocephalic - Eye Eye exam: Present: PERRL, conjuntiva pink, sclera anicteric Pupils: Present: PERRL - Neck Neck exam general surgery: Present: supple, trachea midline. Absent: lymphadenopathy - Respiratory Respiratory exam: Present: CTAB. Absent: accessory muscle use, rales, rhonchi, wheezes - Cardiovascular Cardiovascular exam: Present: RRR, +S1, +S2. Absent: diastolic murmur, gallop, rubs, systolic murmur - GI/Abdominal GI/Abdominal exam: Present: normal bowel sounds, soft, no peritoneal signs. Absent: distended, tenderness - Extremities Exam Extremities exam: Present: warm, radial pulses palpable and symmetrical. Absent : calf tenderness, cyanotic, pedal edema - Neurological Exam Neurological exam: Present: CN II-XII intact, oriented X3, no focal deficits. Absent: pronater drift, facial droop, speech deficit - Skin Skin exam: Present: dry, intact Internal Medicine: Result - Labs CBC & Chem 7: 11/09/17 11:05 11/06/17 06:09 - ABG Interpretation ABG results: PT/INR, D-dimer PT 11.0 Seconds (9.4-12.1) 11/05/17 04:36 Consult Discharge Plan - Plan Referrals: Mariaelena Vasquez, [employer] [Primary Care Provider] -
[2017-11-09 11:35] LABS: Hemoglobin 11.5 g/dL (11.5-15.4); Mean Corpuscular HGB Conc 32.9 g/dL (31.6-35.5); Mean Corpuscular Hemoglobin 29.2 pg (28.0-33.3); Mean Corpuscular Volume 88.8 fL (83.0-100.0); Mean Platelet Volume 11.3 fL (9.4-12.4); Platelet Count 105 K/mcL (140-400); Red Blood Count 3.94 M/mcL (3.82-4.97); Red Cell Distribution Width 14.3 % (11.5-14.5); Segmented Neutrophils % 37.3 %
[2017-11-09 11:36] LABS: Basophils % 0.5 %; Eosinophils # 0.1 K/mcL (0.0-0.6); Eosinophils % 1.2 %; Immature Granulocytes % 1.1 % (0-4); Lymphocytes # 4.5 K/mcL (0.6-4.6); Monocytes # 0.3 K/mcL (0.0-1.3); Monocytes % 3.9 %
[2017-11-09 15:14] LABS: BUN/Creatinine Ratio 22 (6-26); Blood Urea Nitrogen 21 mg/dL (8-23); Calcium 9.4 mg/dL (8.6-10.3); Carbon Dioxide 24 mEq/L (23-29); Chloride 102 mEq/L (98-107); Glucose 282 mg/dL (70-105); Magnesium 1.5 mg/dL (1.6-2.6); Osmolality,Calculated 295 (280-300); Phosphorous 3.1 mg/dL (2.7-4.5); Potassium 4.5 mEq/L (3.5-5.1); Sodium 136 mEq/L (136-145); eGFR For African Americans > 60 (> 60); eGFR For Non-African Americans 58 (> 60)
[2017-11-09] MEDS: Primidone 50 MG TABLET PO SCH (20:15)
[2017-11-10] MEDS: OXYCODONE Oral CONC 10 MG/0.5 ML ORAL.SYG SL PRN ×4 (00:26→20:40)
[2017-11-10] MEDS: *HR* Heparin 5,000 UNIT/ML VIAL SQ SCH ×2 (06:00→16:31)
[2017-11-10] MEDS: Pregabalin 75 MG CAPSULE PO SCH ×3 (07:48→20:40)
[2017-11-10] MEDS: Magnesium Oxide 400 MG TABLET PO SCH (07:48)
[2017-11-10] MEDS: Cyanocobalamin (B-12) 1,000 MCG TABLET PO SCH (07:48)
[2017-11-10] MEDS: Cholecalciferol (D-3) 1,000 UNIT TABLET PO SCH (07:48)
[2017-11-10] MEDS: Metoprolol XL (24 HR) Succ 25 MG TAB.ER.24H PO SCH (07:48)
[2017-11-10] MEDS: Ascorbic Acid 500 MG TABLET PO SCH (07:49)
[2017-11-10] MEDS: Folic Acid 1 MG TABLET PO SCH (07:49)
[2017-11-10] MEDS: Famotidine 20 MG TABLET PO SCH (07:49)
[2017-11-10] MEDS: Topiramate 25 MG TABLET PO SCH ×2 (07:49→20:40)
[2017-11-10] MEDS: Aspirin 81 MG TAB.CHEW PO SCH (07:49)
[2017-11-10] MEDS: Loratadine 10 MG TABLET PO SCH (07:49)
[2017-11-10] MEDS: Insulin LISPRO 300 UNITS/3 ML VIAL SQ SCH ×3 (07:52→16:27)
[2017-11-10] MEDS: IBRUTINIB PO SCH (07:53)
[2017-11-10] MEDS: Fluticasone Propionate Nasal 50 MCG/SPRAY BOTTLE NS SCH (07:53)
--- NOTE | 2017-11-10 11:23 | Discharge Summary ---
Date of Encounter: 11/10/17 Time of Encounter: 11:21 - Discharge Diagnosis (1) UTI (urinary tract infection) Priority: Secondary Status: Acute Assessment and Plan: Continue IV ceftriaxone 11/10: Don doctor thought patient was getting Rocephin but was not Comments: No further symptoms. Urine was contaminated with epithelial cells. Not felt to have an acute urinary tract infection. Reportedly was given a dose of IV Rocephin. Qualifiers: Urinary tract infection type: acute cystitis Hematuria presence: without hematuria Qualified Code(s): N30.00 - Acute cystitis without hematuria (2) CLL (chronic lymphocytic leukemia) Priority: Secondary Status: Chronic Assessment and Plan: Patient complained of back and shoulder pain. MRI showed no new lesions. seen by oncology. Plan for outpatient bone scan Follow-up with oncology. Physical therapy. (3) Intractable nausea and vomiting Priority: Primary Status: Acute Assessment and Plan: Possibly 2/2 to gatroenteritis. Resolved with zofran. Tolerating diet. Plan for discharge. Awaiting ECF placement Qualifiers: Vomiting type: unspecified Qualified Code(s): R11.2 - Nausea with vomiting , unspecified (4) DVT prophylaxis Priority: Secondary Status: Acute (5) Hypokalemia Priority: Secondary Status: Acute Assessment and Plan: Replaced (6) Back pain Priority: Secondary Status: Acute Assessment and Plan: Physical therapy. Pain control as needed. Pt recommend discahrge to SNF. Awaiting placement Qualifiers: Back pain location: thoracic back pain Chronicity: acute Back pain laterality: midline Qualified Code(s): M54.6 - Pain in thoracic spine Hospital course: Ms. Vargas is a 67 year old female who has a history of CLL CAD diabetes hypertension CK D stages II, presented to emergency room for sudden onset abdominal pain and back pain. Back pain is located to the upper back, started last night, 8 out of 10, constant, sharp, no radiations, nothing makes better or worse. She also c/o upper abdominal pain,10 out of 10, constant, aching all over, associated with severe nausea vomiting, no diarrhea, abdominal is soft. She had bowel movement 2 days ago. she denies fever or chills, she denies painful frequency urination. Patient has CLL for 15 years, has been follow-up was Dr. Tovar. Lab shows mild leukocytosis WBC 14,000. Kidney function is normal. T-spine CT showed Diffuse pattern of ill-defined lytic foci throughout the bones suggestive of marrow infiltrative process such as lymphoma or leukemia. CT of A/P shnowed Mediastinal, axillary, and pelvic adenopathy along with mild retroperitoneal and mesenteric lymphadenopathy noted, findings stable. There is also splenomegaly unchanged. 1. Upper back pain, CT shows lytic lesion, will do MRI consult oncologist 2. Abdominal pain, abdominal CT was contrast shows normal pancreas liver, stated post cholecystectomy, no acute findings normal liver function and lipase 3. CLL with spine lytic lesion 4. UTI CT shsowed normal kidneys, on ceftriaxone Patient reportedly was given a dose of IV Rocephin on admission. Since being admitted she has remained afebrile. Back pain has improved. Her white blood cell count has remained normal, she is nontoxic and not having any urinary complaints. Patient did not have any culture data but did not appear to have any acute urinary symptoms. She was felt to have an acute gastroenteritis was certainly could be explaining her pain. Therefore she was not continued on antibiotics. Patient was seen by oncology given her history of CLL with MRI showing leukemic infiltrate. Patient was felt to be appropriate for outpatient follow-up. No acute interventions were performed. She was recommended for physical therapy. She otherwise was doing well and deemed stable for discharge to a shelter facility. 32 minutes spent on discharge and coordination of care. Discharge discussed with: patient - Time Spent with Patient Total time spent providing and/or coordinating discharge services: Greater than 30 minutes - Discharge Medications Home Medications: Aspirin 81 mg PO DAILY 04/05/15 [History] Atorvastatin [Lipitor] 40 mg PO DAILY 04/05/15 [History] Insulin LISPRO [HumaLOG] 5 - 15 units SQ TIDAC 04/05/15 [History] Topiramate [Topamax] 25 mg PO BID 08/23/15 [History] Folic Acid 1 mg PO DAILY #30 tablet 09/18/15 [Rx] Ergocalciferol (VITAMIN D2) [Vitamin D2 (50,000 UNIT)] 50,000 unit PO WE [History] Primidone [Mysoline] 50 mg PO HS 02/28/16 [History] Ascorbic Acid [Vitamin C] 500 mg PO DAILY 03/06/16 [History] Ferrous Sulfate [Iron] 325 mg PO DAILY 03/06/16 [History] Fluticasone Propionate Nasal [Flonase] 100 mcg NS DAILY 11/26/16 [History] Insulin Glargine/Lixisenatide [Soliqua 100 Unit-33 Mcg/ml Pen] 60 unit SQ HS [History] Tramadol HCl [Ultram] 50 mg PO TID 11/26/16 [History] Cyanocobalamin (Vitamin B-12) [Vitamin B-12] 500 mcg PO DAILY 05/06/17 [History] Furosemide [Lasix] 20 mg PO DAILY PRN 05/06/17 [History] Linagliptin [Tradjenta] 5 mg PO DAILY 05/06/17 [History] Loratadine [Claritin] 10 mg PO DAILY 05/06/17 [History] Metoprolol XL (24 HR) Succ [Toprol Xl] 25 mg PO DAILY 05/06/17 [History] Pioglitazone [Actos] 15 mg PO DAILY 05/06/17 [History] Pregabalin [Lyrica] 100 mg PO TID 05/06/17 [History] Sucralfate [Carafate] 1 gm PO QID 05/06/17 [History] Acetaminophen [Tylenol] 650 mg PO Q6HR PRN tablet 07/10/17 [Rx] raNITIdine HCl [Zantac] 150 mg PO DAILY #30 tablet 07/10/17 [Rx] Metoclopramide [Reglan] 5 mg PO TIDAC #60 tablet 08/21/17 [Rx] Albuterol Neb [Proventil Neb] 2.5 mg IH Q4H PRN #1 inhsol 09/22/17 [Rx] Ibrutinib [Imbruvica] 420 mg PO DAILY 11/05/17 [History] Omeprazole [PriLOSEC] 40 mg PO DAILY 11/05/17 [History] Allergies/Adverse Reactions: 3 Allergy/AdvReac Type Severity Reaction Status Date / Time metformin Allergy Nausea Verified 11/05/17 04:28 Sulfa (Sulfonamide Allergy Nausea Verified 11/05/17 04:28 Antibiotics) sulfamethoxazole Allergy Nausea Verified 11/05/17 04:28 [From Bactrim] trimethoprim [From Bactrim] Allergy Nausea Verified 11/05/17 04:28 Date of admission: 11/08/17 18:20 Primary care physician: Mariaelena Vasquez CNP Discharging clinician: Jose Manuel Bailey Anticipated date of discharge: 11/10/17 - Constitutional Vitals: Temp Pulse Resp BP Pulse Ox 98.5 F 90 16 107/69 93 11/10/17 10:06 11/10/17 10:06 11/10/17 10:06 11/10/17 10:06 11/10/17 10:06 General appearance: Present: A&O X 3, pleasant, obese, answers questions appropriately - Head Head exam: Present: atraumatic, normocephalic - Eye Eye exam: Present: PERRL, conjuntiva pink, sclera anicteric Pupils: Present: PERRL - Neck Neck exam general surgery: Present: supple, trachea midline. Absent: lymphadenopathy - Respiratory Respiratory exam: Present: CTAB. Absent: accessory muscle use, rales, rhonchi, wheezes - Cardiovascular Cardiovascular exam: Present: RRR, +S1, +S2. Absent: diastolic murmur, gallop, rubs, systolic murmur - Extremities Exam Extremities exam: Present: warm, radial pulses palpable and symmetrical. Absent : calf tenderness, cyanotic, pedal edema - Back Exam Back exam: Present: vertebral tenderness - Neurological Exam Neurological exam: Present: CN II-XII intact, oriented X3, no focal deficits. Absent: pronater drift, facial droop, speech deficit - Skin Skin exam: Present: dry, intact - Patient Status Disposition: Transfer SNF Condition: Fair Functional capacity at discharge: independent ambulation Overall status at discharge: patient is progressing back to baseline - Discharge Instructions Follow Up With: Mariaelena Vasquez CNP [Primary Care Provider] -
[2017-11-10] MEDS: Primidone 50 MG TABLET PO SCH (20:40)
[2017-11-10] MEDS ORDERED: Insulin LISPRO 300 UNITS/3 ML VIAL SQ SCH (21:00)
[2017-11-10] MEDS ORDERED: Insulin DETEMIR 100 UNIT/ML X5UNITS SQ SCH (21:00)
[2017-11-11] MEDS: *HR* Heparin 5,000 UNIT/ML VIAL SQ SCH (05:16)
[2017-11-11 06:51] VITALS: BP 130/82
[2017-11-11] MEDS: OXYCODONE Oral CONC 10 MG/0.5 ML ORAL.SYG SL PRN (08:55)
[2017-11-11] MEDS: Insulin LISPRO 300 UNITS/3 ML VIAL SQ SCH ×2 (08:56→11:12)
[2017-11-11] MEDS: Cyanocobalamin (B-12) 1,000 MCG TABLET PO SCH (08:58)
[2017-11-11] MEDS: Aspirin 81 MG TAB.CHEW PO SCH (08:58)
[2017-11-11] MEDS: Metoprolol XL (24 HR) Succ 25 MG TAB.ER.24H PO SCH (08:58)
[2017-11-11] MEDS: Famotidine 20 MG TABLET PO SCH (08:58)
[2017-11-11] MEDS: Magnesium Oxide 400 MG TABLET PO SCH (08:58)
[2017-11-11] MEDS: Topiramate 25 MG TABLET PO SCH (08:59)
[2017-11-11] MEDS: Loratadine 10 MG TABLET PO SCH (08:59)
[2017-11-11] MEDS: Folic Acid 1 MG TABLET PO SCH (08:59)
[2017-11-11] MEDS: Cholecalciferol (D-3) 1,000 UNIT TABLET PO SCH (08:59)
[2017-11-11] MEDS: Ascorbic Acid 500 MG TABLET PO SCH (08:59)
[2017-11-11] MEDS: Pregabalin 75 MG CAPSULE PO SCH (08:59)
[2017-11-11] MEDS: Fluticasone Propionate Nasal 50 MCG/SPRAY BOTTLE NS SCH (09:07)
--- NOTE | 2017-11-11 10:43 | Internal Med Progress Note ---
Date of Encounter: 11/11/17 Time of Encounter: 09:00 - Assessment and plan (1) UTI (urinary tract infection) Current Visit: No Status: Acute Assessment and plan: Continue IV ceftriaxone 11/10: Don doctor thought patient was getting Rocephin but was not 11/11: Off abx. No sx. No cx data Qualifiers: Urinary tract infection type: acute cystitis Hematuria presence: without hematuria Qualified Code(s): N30.00 - Acute cystitis without hematuria (2) CLL (chronic lymphocytic leukemia) Current Visit: No Status: Chronic Assessment and plan: Patient complained of back and shoulder pain. MRI showed no new lesions. seen by oncology. Plan for outpatient bone scan Follow-up with oncology. Physical therapy. (3) Intractable nausea and vomiting Current Visit: No Status: Acute Assessment and plan: Possibly 2/2 to gatroenteritis. Resolved with zofran. Tolerating diet. Plan for discharge. Awaiting ECF placement Qualifiers: Vomiting type: unspecified Qualified Code(s): R11.2 - Nausea with vomiting , unspecified (4) DVT prophylaxis Current Visit: No Status: Acute (5) Hypokalemia Current Visit: No Status: Acute Assessment and plan: Replaced (6) Back pain Current Visit: No Status: Acute Assessment and plan: Physical therapy. Pain control as needed. Pt recommend discahrge to SNF. Awaiting placement Qualifiers: Back pain location: thoracic back pain Chronicity: acute Back pain laterality: midline Qualified Code(s): M54.6 - Pain in thoracic spine - Time Spent With Patient Total time spent is greater than 50% in coordination of care (as documented) at patient's floor/unit and/or counseling patient: 25 - 35 minutes - Subjective Interval history: Patient complains of some mild back discomfort since laying in bed. No other complaints at this time. Please see my full discharge summary dictated on 11/10. Discharge was held up one day. Patient is now stable for discharge - Constitutional Vitals: Temp Pulse Resp BP Pulse Ox 97.9 F 78 16 130/82 96 11/11/17 06:44 11/11/17 06:44 11/11/17 06:44 11/11/17 06:44 11/11/17 06:44 General appearance: Present: A&O X 3, pleasant, obese, answers questions appropriately - Head Head exam: Present: atraumatic, normocephalic - Eye Eye exam: Present: PERRL, conjuntiva pink, sclera anicteric Pupils: Present: PERRL - Neck Neck exam general surgery: Present: supple, trachea midline. Absent: lymphadenopathy - Respiratory Respiratory exam: Present: CTAB. Absent: accessory muscle use, rales, rhonchi, wheezes - Cardiovascular Cardiovascular exam: Present: RRR, +S1, +S2. Absent: diastolic murmur, gallop, rubs, systolic murmur - GI/Abdominal GI/Abdominal exam: Present: normal bowel sounds, soft, no peritoneal signs. Absent: distended, tenderness - Extremities Exam Extremities exam: Present: pedal edema, warm, radial pulses palpable and symmetrical. Absent: calf tenderness, cyanotic - Neurological Exam Neurological exam: Present: CN II-XII intact, oriented X3, no focal deficits. Absent: pronater drift, facial droop, speech deficit Internal Medicine: Result - Labs CBC & Chem 7: 11/09/17 11:05 11/09/17 11:05 - ABG Interpretation ABG results: PT/INR, D-dimer PT 11.0 Seconds (9.4-12.1) 11/05/17 04:36 Consult Discharge Plan - Plan Instructions: Urinary Tract Infection in Women (DC) Referrals: Mariaelena Vasquez CNP [Primary Care Provider] - Prescriptions: OXYCODONE Oral CONC [Oxycodone Oral Conc] 10 mg SL Q4H PRN 5 Days #10 ml PRN Reason: Severe Pain
--- NOTE | 2017-11-11 10:47 | Physician Discharge Referral ---
ExtendedCare Referral Info Transfer To: SNF Provider in Charge: caty meier Provider in Charge after Transfer: PCP Institutional Level of Care: Skilled - Diagnosis (1) UTI (urinary tract infection) Status: Acute (2) CLL (chronic lymphocytic leukemia) Status: Chronic (3) Intractable nausea and vomiting Status: Acute (4) DVT prophylaxis Status: Acute (5) Hypokalemia Status: Acute (6) Back pain Status: Acute - Transfer Medications Prescriptions: Docusate [Colace] 100 mg PO DAILY #30 capsule OXYCODONE Oral CONC [Oxycodone Oral Conc] 10 mg SL Q4H PRN 5 Days #10 ml PRN Reason: Severe Pain Home Medications: Aspirin 81 mg PO DAILY 04/05/15 [History] Atorvastatin [Lipitor] 40 mg PO DAILY 04/05/15 [History] Insulin LISPRO [HumaLOG] 5 - 15 units SQ TIDAC 04/05/15 [History] Topiramate [Topamax] 25 mg PO BID 08/23/15 [History] Folic Acid 1 mg PO DAILY #30 tablet 09/18/15 [Rx] Ergocalciferol (VITAMIN D2) [Vitamin D2 (50,000 UNIT)] 50,000 unit PO WE [History] Primidone [Mysoline] 50 mg PO HS 02/28/16 [History] Ascorbic Acid [Vitamin C] 500 mg PO DAILY 03/06/16 [History] Ferrous Sulfate [Iron] 325 mg PO DAILY 03/06/16 [History] Fluticasone Propionate Nasal [Flonase] 100 mcg NS DAILY 11/26/16 [History] Insulin Glargine/Lixisenatide [Soliqua 100 Unit-33 Mcg/ml Pen] 60 unit SQ HS [History] Tramadol HCl [Ultram] 50 mg PO TID 11/26/16 [History] Cyanocobalamin (Vitamin B-12) [Vitamin B-12] 500 mcg PO DAILY 05/06/17 [History] Linagliptin [Tradjenta] 5 mg PO DAILY 05/06/17 [History] Loratadine [Claritin] 10 mg PO DAILY 05/06/17 [History] Metoprolol XL (24 HR) Succ [Toprol Xl] 25 mg PO DAILY 05/06/17 [History] Pioglitazone [Actos] 15 mg PO DAILY 05/06/17 [History] Pregabalin [Lyrica] 100 mg PO TID 05/06/17 [History] Sucralfate [Carafate] 1 gm PO QID 05/06/17 [History] Acetaminophen [Tylenol] 650 mg PO Q6HR PRN tablet 07/10/17 [Rx] raNITIdine HCl [Zantac] 150 mg PO DAILY #30 tablet 07/10/17 [Rx] Metoclopramide [Reglan] 5 mg PO TIDAC #60 tablet 08/21/17 [Rx] Albuterol Neb [Proventil Neb] 2.5 mg IH Q4H PRN #1 inhsol 09/22/17 [Rx] Ibrutinib [Imbruvica] 420 mg PO DAILY 11/05/17 [History] Omeprazole [PriLOSEC] 40 mg PO DAILY 11/05/17 [History] OXYCODONE Oral CONC [Oxycodone Oral Conc] 10 mg SL Q4H PRN 5 Days #10 ml [Rx] Promethazine [Phenergan] 12.5 mg IVP Q8HR PRN vial 11/10/17 [Rx] Docusate [Colace] 100 mg PO DAILY #30 capsule 11/11/17 [Rx] Allergies/Adverse Reactions: 3 Allergy/AdvReac Type Severity Reaction Status Date / Time metformin Allergy Nausea Verified 11/05/17 04:28 Sulfa (Sulfonamide Allergy Nausea Verified 11/05/17 04:28 Antibiotics) sulfamethoxazole Allergy Nausea Verified 11/05/17 04:28 [From Bactrim] trimethoprim [From Bactrim] Allergy Nausea Verified 11/05/17 04:28 - Respiratory Orders Smoking Cessation: Smoking cessation has been advised. For more information, call the [place] Tobacco Quit Line at 0-558-MUPA-NOW. CERTIFICATION: I certify that the transfer of the above named patient to an Extended Care Facility is necessary for the continuing treatment of the diagnosis listed. The above information is true and accurate reflection of patient's current condition. Confidential - Redisclosure prohibited without a patient's written consent.
== END 2017-11-11 13:00 | DRG 392 ==
LOC: 2SOUTHHOLD 04:20 → EMEROO 04:20 → 2SOUTHHOLD 11:30 → 3ANU 11-06 18:42
PROVIDERS: ADMIT Hospitalist; ATTEND Hospitalist

== ENCOUNTER 2017-12-06 14:28 | Inpatient (IN) ==
[2017-12-06] MEDS ORDERED: Famotidine 20 MG/2 ML VIAL IVP ONE (14:40)
[2017-12-06] MEDS ORDERED: Ondansetron 4 MG/2 ML VIAL IVP ONE (14:40)
[2017-12-06] MEDS ORDERED: 0.9 % Sodium Chloride 1,000 ML IVC ONE (14:40)
[2017-12-06] MEDS ORDERED: *HR* FentaNYL (PF) 100 MCG/2 ML VIAL IVP ONE ×2 (14:40→15:59)
--- NOTE | 2017-12-06 14:43 | Emergency Department Note ---
Disposition Clinical Impression: Chronic lymphocytic leukemia Abdominal pain Qualifiers: Abdominal location: generalized Qualified Code(s): R10.84 - Generalized abdominal pain Disposition: Admitted As Inpatient Condition: Serious Referrals: Mariaelena Vasquez CNP [Primary Care Provider] - Forms: ED Satisfaction Letter, Work/School Release Time of Disposition: 16:21 Abdominal Pain HPI - General Chief Complaint: ED Abdominal Pain Stated Complaint: abd pain Time Seen by Provider: 12/06/17 14:32 Source: patient Mode of arrival: wheelchair Limitations: no limitations Nursing Notes Reviewed: Yes Vital Signs Reviewed: Yes - History of Present Illness HPI Narrative: "This is the same thing happens every month." Patient states she experiences recurrent monthly abdominal pain of uncertain etiology. Abdominal pain started 7 hours prior to arrival. It is centrally located. Associated with nausea and vomiting without other acute GI/ symptoms. Pain radiates to back. She has a history of CLL but her oncologist is not currently providing any active chemotherapy Pt Subjective Complaint: abdominal pain Onset (ago): hour(s) Consistency: constant Location: periumbilical, epigastric Pain Severity: severe Pain Scale: 10 Quality: aching Radiation: back - Related Data Home Medications Medication Instructions Recorded Confirmed Aspirin 81 mg PO DAILY 04/05/15 11/20/17 Atorvastatin [Lipitor] 40 mg PO DAILY 04/05/15 11/20/17 Insulin LISPRO [HumaLOG] 5 - 15 units SQ TIDAC 04/05/15 11/20/17 Topiramate [Topamax] 25 mg PO BID 08/23/15 11/20/17 Ergocalciferol (VITAMIN D2) 50,000 unit PO WE 02/28/16 11/20/17 [Vitamin D2 (50,000 UNIT)] Primidone [Mysoline] 50 mg PO HS 02/28/16 11/20/17 Ascorbic Acid [Vitamin C] 500 mg PO DAILY 03/06/16 11/20/17 Ferrous Sulfate [Iron] 325 mg PO DAILY 03/06/16 11/20/17 Fluticasone Propionate Nasal 100 mcg NS DAILY 11/26/16 11/20/17 [Flonase] Insulin Glargine/Lixisenatide 60 unit SQ HS 11/26/16 11/20/17 [Soliqua 100 Unit-33 Mcg/ml Pen] Tramadol HCl [Ultram] 50 mg PO TID 11/26/16 11/20/17 Cyanocobalamin (Vitamin B-12) 500 mcg PO DAILY 05/06/17 11/20/17 [Vitamin B-12] Linagliptin [Tradjenta] 5 mg PO DAILY 05/06/17 11/20/17 Loratadine [Claritin] 10 mg PO DAILY 05/06/17 11/20/17 Metoprolol XL (24 HR) Succ [Toprol 25 mg PO DAILY 05/06/17 11/20/17 Xl] Pioglitazone [Actos] 15 mg PO DAILY 05/06/17 11/20/17 Pregabalin [Lyrica] 100 mg PO TID 05/06/17 11/20/17 Sucralfate [Carafate] 1 gm PO QID 05/06/17 11/20/17 Ibrutinib [Imbruvica] 420 mg PO DAILY 11/05/17 11/05/17 Omeprazole [PriLOSEC] 40 mg PO DAILY 11/05/17 11/20/17 Previous Rx's Medication Instructions Recorded Folic Acid 1 mg PO DAILY #30 tablet 09/18/15 Acetaminophen [Tylenol] 650 mg PO Q6HR PRN tablet 07/10/17 raNITIdine HCl [Zantac] 150 mg PO DAILY #30 tablet 07/10/17 Metoclopramide [Reglan] 5 mg PO TIDAC #60 tablet 08/21/17 Albuterol Neb [Proventil Neb] 2.5 mg IH Q4H PRN #1 inhsol 09/22/17 OXYCODONE Oral CONC [Oxycodone 10 mg SL Q4H PRN 5 Days #10 ml 11/10/17 Oral Conc] Promethazine [Phenergan] 12.5 mg IVP Q8HR PRN vial 11/10/17 Docusate [Colace] 100 mg PO DAILY #30 capsule 11/11/17 Allergies Allergy/AdvReac Type Severity Reaction Status Date / Time metformin Allergy Nausea Verified 11/20/17 15:37 Sulfa (Sulfonamide Allergy Nausea Verified 11/20/17 15:37 Antibiotics) sulfamethoxazole Allergy Nausea Verified 11/20/17 15:37 [From Bactrim] trimethoprim [From Bactrim] Allergy Nausea Verified 11/20/17 15:37 All systems ED: reviewed and negative except as stated. Constitutional: Reports: as per HPI Eyes: Reports: as per HPI ENT ED: Reports: as per HPI Cardiovascular: Reports: as per HPI Respiratory: Reports: as per HPI Gastrointestinal: Reports: abdominal pain, nausea, vomiting Genitourinary: Reports: as per HPI Musculoskeletal: Reports: back pain Integumentary: Reports: as per HPI Neurological: Reports: as per HPI Psychiatric: Reports: as per HPI Endocrine: Reports: as per HPI Hematological/Lymphatic: Reports: as per HPI Allergic/Immunologic: Reports: as per HPI Abdominal Pain PMH - Past Medical History Medical history: Reports: cancer, coronary artery disease, diabetes, hypertension, renal disease, other Female Surgical History: Reports: appendectomy, cholecystectomy MANAGED CARE DIRECTOR history: Reports: no MANAGED CARE DIRECTOR history Psychiatric history: Reports: anxiety, depression - Social History Smoking status: Never smoker Alcohol use: Reports: none Drug use: Reports: none Physical Exam Actively retching. Anxious - General Limitations: no limitations General appearance: alert, anxious - Head Head exam: atraumatic - Eye Eye exam: Present: normal appearance - ENT ENT exam: normal exam - Neck Neck exam: Present: normal inspection, full ROM - Chest Chest inspection: Present: normal inspection, symmetric chest wall rise - Respiratory Respiratory exam: Present: normal lung sounds bilaterally - Cardiovascular Cardiovascular exam: Present: tachycardia, normal heart sounds - Abdominal Exam Abdominal exam: Present: soft, Non-Tender, hypoactive bowel sounds, other ( Mildly distended) Abdominal tenderness: Absent: RUQ, RLQ - Rectal Exam Rectal exam: Present: deferred - Extremities Exam Extremities exam: Present: normal inspection - Neurological Exam Neurological exam: Present: alert, oriented X3, CN II-XII intact - Psychiatric Psychiatric exam: Present: anxious - Skin Skin exam: Present: warm, dry, intact Course Course Narrative: Patient presents with recurrent monthly abdominal pain associated with nausea and vomiting. She is anxious appearing and retching on exam. She has a history of CLL not currently undergoing active chemotherapy. Workup including laboratory investigation, urinalysis, noncontrast CT of abdomen and pelvis ordered. I will provide her with analgesics and antiemetics and reassessed Vital Signs Temperature 98.1 F 12/06/17 14:28 Pulse Rate 127 12/06/17 14:28 Respiratory Rate 22 12/06/17 14:28 Blood Pressure 171/135 12/06/17 14:28 O2 Sat by Pulse Oximetry 97 06/24/18 14:28 Temperature 98.1 F 12/06/17 14:34 Pulse Rate 127 12/06/17 14:34 Respiratory Rate 22 12/06/17 14:34 Blood Pressure 171/135 12/06/17 14:34 O2 Sat by Pulse Oximetry 97 12/06/17 14:34 Oxygen Delivery Oxygen Delivery Room Air Abdominal Pain - Medical Records Medical records reviewed: Yes I reviewed the patient's medical records. - Lab Data Lab results reviewed: Yes I reviewed the patient's lab results. Result diagrams: 12/06/17 14:57 12/06/17 14:57 Lab Results 12/06/17 12/06/17 12/06/17 Range/Units 14:46 14:57 14:57 WBC 10.4 (4.3-11.1) K/mcL RBC 4.50 (3.82-4.97) M/mcL Hgb 12.7 (11.5-15.4) g/dL Hct 39.0 (35.3-44.9) % MCV 86.7 (83.0-100.0) fL MCH 28.2 (28.0-33.3) pg MCHC 32.6 (31.6-35.5) g/dL RDW 14.6 H (11.5-14.5) % Plt Count 123 L (140-400) K/mcL MPV 10.5 (9.4-12.4) fL Immature Gran % 1.0 (0-4) % Seg Neutrophils % 39.6 % Lymphocytes % 55.2 % Monocytes % 2.9 % Eosinophils % 0.9 % Basophils % 0.4 % Neutrophils # 4.1 (1.6-8.9) K/mcL Lymphocytes # 5.7 H (0.6-4.6) K/mcL Monocytes # 0.3 (0.0-1.3) K/mcL Eosinophils # 0.1 (0.0-0.6) K/mcL Basophils # 0.0 (0.0-0.2) K/mcL Sodium 140 (136-145) mEq/L Potassium 3.5 (3.5-5.1) mEq/L Chloride 107 (98-107) mEq/L Carbon Dioxide 23 (23-29) mEq/L BUN 16 (8-23) mg/dL Creatinine 0.85 (0.60-1.20) mg/dL Est GFR ( Amer) > 60 (> 60) Est GFR (Non-Af Amer) > 60 (> 60) BUN/Creatinine Ratio 19 (6-26) Glucose 202 H (70-105) mg/dL Calculated Osmolality 297 (280-300) Lactic Acid (0.5-2.2) mmol/L Calcium 9.2 (8.6-10.3) mg/dL Magnesium 1.3 L (1.6-2.6) mg/dL Total Bilirubin 0.4 (0.3-1.0) mg/dL AST 10 L (13-39) Units/L ALT 11 (7-52) Units/L Alkaline Phosphatase 94 (34-104) Units/L Troponin I (< 0.04) ng/mL Serum Total Protein 6.2 L (6.4-8.9) g/dL Albumin 4.2 (3.5-5.7) g/dL Globulin 2.0 L (2.4-3.5) g/dL Albumin/Globulin Ratio 2.1 (1.1-2.2) Lipase 15 (11-82) Units/L Urine Color Yellow (Yellow) Urine Clarity Clear (Clear) Urine pH 6.0 (5.0-8.0) pH Units Ur Specific [place] 1.023 (1.010-1.025) Urine Protein Negative (Neg-Trace) mg/dL Urine Glucose (UA) Normal (Normal) mg/dL Urine Ketones Negative (Negative) mg/dL Urine Blood Negative (Negative) Urine Nitrite Negative (Negative) Urine Bilirubin Negative (Negative) Urine Urobilinogen Normal (Normal) mg/dL Ur Leukocyte Esterase Large H (Negative) Urine Microscopic RBC 0-3 (0-3) per hpf Urine Microscopic WBC 30-50 H (0-3) per hpf Ur Squamous Epith Cells Many H (None-Few) per lpf Urine Bacteria Few (None-Few) per hpf Hyaline Casts None Seen (None-Few) per lpf 12/06/17 12/06/17 Range/Units 14:57 14:57 WBC (4.3-11.1) K/mcL RBC (3.82-4.97) M/mcL Hgb (11.5-15.4) g/dL Hct (35.3-44.9) % MCV (83.0-100.0) fL MCH (28.0-33.3) pg MCHC (31.6-35.5) g/dL RDW (11.5-14.5) % Plt Count (140-400) K/mcL MPV (9.4-12.4) fL Immature Gran % (0-4) % Seg Neutrophils % % Lymphocytes % % Monocytes % % Eosinophils % % Basophils % % Neutrophils # (1.6-8.9) K/mcL Lymphocytes # (0.6-4.6) K/mcL Monocytes # (0.0-1.3) K/mcL Eosinophils # (0.0-0.6) K/mcL Basophils # (0.0-0.2) K/mcL Sodium (136-145) mEq/L Potassium (3.5-5.1) mEq/L Chloride (98-107) mEq/L Carbon Dioxide (23-29) mEq/L BUN (8-23) mg/dL Creatinine (0.60-1.20) mg/dL Est GFR ( Amer) (> 60) Est GFR (Non-Af Amer) (> 60) BUN/Creatinine Ratio (6-26) Glucose (70-105) mg/dL Calculated Osmolality (280-300) Lactic Acid 3.0 H (0.5-2.2) mmol/L Calcium (8.6-10.3) mg/dL Magnesium (1.6-2.6) mg/dL Total Bilirubin (0.3-1.0) mg/dL AST (13-39) Units/L ALT (7-52) Units/L Alkaline Phosphatase (34-104) Units/L Troponin I < 0.03 (< 0.04) ng/mL Serum Total Protein (6.4-8.9) g/dL Albumin (3.5-5.7) g/dL Globulin (2.4-3.5) g/dL Albumin/Globulin Ratio (1.1-2.2) Lipase (11-82) Units/L Urine Color (Yellow) Urine Clarity (Clear) Urine pH (5.0-8.0) pH Units Ur Specific [place] (1.010-1.025) Urine Protein (Neg-Trace) mg/dL Urine Glucose (UA) (Normal) mg/dL Urine Ketones (Negative) mg/dL Urine Blood (Negative) Urine Nitrite (Negative) Urine Bilirubin (Negative) Urine Urobilinogen (Normal) mg/dL Ur Leukocyte Esterase (Negative) Urine Microscopic RBC (0-3) per hpf Urine Microscopic WBC (0-3) per hpf Ur Squamous Epith Cells (None-Few) per lpf Urine Bacteria (None-Few) per hpf Hyaline Casts (None-Few) per lpf - Radiology Data Radiology results reviewed: Yes I reviewed the patient's radiology results. - EKG Data EKG attestation: Yes I reviewed and interpreted this EKG. EKG results narrative: Sinus tachycardia rate 108 TX 152 QRS 104 QT/QTC 337/[address] segment depression in the inferior and lateral leads. No acute ST segment elevation. Study compared to previous dated 09/18/17
[2017-12-06 15:09] LABS: Bilirubin,Urine Negative (Negative); Blood,Urine Negative (Negative); Clarity,Urine Clear (Clear); Color,Urine Yellow (Yellow); Glucose,Urine (UA) Normal (Normal); Ketones,Urine Negative (Negative); Leukocyte Esterase,Urine Large (Negative); Nitrite,Urine Negative (Negative); Protein,Urine Negative (Neg-Trace); Specific Gravity,Urine 1.023 (1.010-1.025); Urobilinogen,Urine Normal (Normal)
[2017-12-06 15:10] LABS: Bacteria,Urine Few per hpf (None-Few); Hyaline Casts,Urine None Seen per lpf (None-Few); RBC,Urine 0-3 per hpf (0-3); Squamous Epithelial Cell,Urine Many per lpf (None-Few); WBC,Urine 30-50 per hpf (0-3)
[2017-12-06 15:16] LABS: Basophils % 0.4 %; Eosinophils # 0.1 K/mcL (0.0-0.6); Eosinophils % 0.9 %; Hemoglobin 12.7 g/dL (11.5-15.4); Lymphocytes # 5.7 K/mcL (0.6-4.6); Lymphocytes % 55.2 %; Mean Corpuscular HGB Conc 32.6 g/dL (31.6-35.5); Mean Corpuscular Hemoglobin 28.2 pg (28.0-33.3); Mean Corpuscular Volume 86.7 fL (83.0-100.0); Mean Platelet Volume 10.5 fL (9.4-12.4); Monocytes # 0.3 K/mcL (0.0-1.3); Monocytes % 2.9 %; Neutrophils # 4.1 K/mcL (1.6-8.9); Platelet Count 123 K/mcL (140-400); Red Cell Distribution Width 14.6 % (11.5-14.5); Segmented Neutrophils % 39.6 %
[2017-12-06 15:39] LABS: Alanine Aminotransferase 11 Units/L (7-52); Albumin 4.2 g/dL (3.5-5.7); Albumin/Globulin Ratio 2.1 (1.1-2.2); Alkaline Phosphatase 94 Units/L (34-104); Aspartate Amino Transferase 10 Units/L (13-39); BUN/Creatinine Ratio 19 (6-26); Bilirubin,Total 0.4 mg/dL (0.3-1.0); Blood Urea Nitrogen 16 mg/dL (8-23); Calcium 9.2 mg/dL (8.6-10.3); Carbon Dioxide 23 mEq/L (23-29); Chloride 107 mEq/L (98-107); Glucose 202 mg/dL (70-105); Lipase 15 Units/L (11-82); Magnesium 1.3 mg/dL (1.6-2.6); Osmolality,Calculated 297 (280-300); Potassium 3.5 mEq/L (3.5-5.1); Sodium 140 mEq/L (136-145); Total Protein 6.2 g/dL (6.4-8.9); eGFR For African Americans > 60 (> 60); eGFR For Non-African Americans > 60 (> 60)
[2017-12-06] MEDS ORDERED: *HR* Promethazine 25 MG/ML VIAL IVP ONE ×2 (17:59→22:15)
[2017-12-06] MEDS ORDERED: Naloxone 0.4 MG/ML INJ IVP PRN (18:20)
[2017-12-06] MEDS ORDERED: Albuterol 2.5 MG/3 ML NEBULIZER IH PRN (18:24)
--- NOTE | 2017-12-06 18:38 | Internal Med History&Physical ---
Date of Encounter: 12/06/17 Time of Encounter: 18:00 Internal Medicine - H&P: HPI Chief complaint: Abdominal pain Admitted From: Home Plans for Post Hospital Care: Home History of present illness: Ms. Vargas is a 67 year old female with hx of CLL and DM presented to ED with complaints of abdominal pain and nausea with vomiting. She says this happens every month during the last week of the month. She denies changes in diet or medications. Had been taking Reglan but stopped since it was given with her chemo meds. No fever or chills. No diarrhea or constipation. Upon my arrival she was retching in the bed. She was complaining of some nausea and pain. Past Med Surg Social Fam HX - Past Medical History Medical history: cancer, coronary artery disease, diabetes, hypertension, renal disease, other Additional medical history: CLL Psychiatric history: anxiety, depression - Past Surgical History Surgical History: appendectomy, cholecystectomy, THERESE/BSO, other Additional surgical history: left knee replacement - Social History Smoking Status: Never smoker Smokeless Tobacco Status: No Alcohol use: none Drug use: none Current living situation: Home - Independent - Family History Mother Family Member Ethnicity: Non- Living Status: Hx Family Cardiac Disorders: No Hx Family Respiratory Disorders: No Hx Family Cancer: No Hx Family GI Disorders: No Hx Family Endocrine Disorder: Yes (DM) Hx Family Neuromuscular Disorders: No Hx Family Neurologic Disorders: No Hx Family HEENT Disorders: No Hx Family Autoimmune Disorders: No Father Adopted: No Family Member Ethnicity: Non- Living Status: Hx Family Cardiac Disorders: Yes (ME) Hx Family Respiratory Disorders: No Hx Family Cancer: No Hx Family GI Disorders: No Hx Family Endocrine Disorder: No Hx Family Neuromuscular Disorders: No Hx Family Neurologic Disorders: No Hx Family HEENT Disorders: No Hx Family Autoimmune Disorders: No Internal Medicine - H&P: Meds Aspirin 81 mg PO DAILY 04/05/15 [History] Topiramate [Topamax] 25 mg PO BID 08/23/15 [History] Folic Acid 1 mg PO DAILY #30 tablet 09/18/15 [Rx] Primidone [Mysoline] 50 mg PO HS 02/28/16 [History] Ascorbic Acid [Vitamin C] 500 mg PO DAILY 03/06/16 [History] Ferrous Sulfate [Iron] 325 mg PO DAILY 03/06/16 [History] Fluticasone Propionate Nasal [Flonase] 100 mcg NS DAILY 11/26/16 [History] Insulin Glargine/Lixisenatide [Soliqua 100 Unit-33 Mcg/ml Pen] 60 unit SQ HS [History] Tramadol HCl [Ultram] 50 mg PO TID 11/26/16 [History] Cyanocobalamin (Vitamin B-12) [Vitamin B-12] 500 mcg PO DAILY 05/06/17 [History] Linagliptin [Tradjenta] 5 mg PO DAILY 05/06/17 [History] Loratadine [Claritin] 10 mg PO DAILY 05/06/17 [History] Metoprolol XL (24 HR) Succ [Toprol Xl] 25 mg PO DAILY 05/06/17 [History] Pioglitazone [Actos] 15 mg PO DAILY 05/06/17 [History] Pregabalin [Lyrica] 100 mg PO TID 05/06/17 [History] Sucralfate [Carafate] 1 gm PO QID 05/06/17 [History] Acetaminophen [Tylenol] 650 mg PO Q6HR PRN tablet 07/10/17 [Rx] Metoclopramide [Reglan] 5 mg PO TIDAC #60 tablet 08/21/17 [Rx] Albuterol Neb [Proventil Neb] 2.5 mg IH Q4H PRN #1 inhsol 09/22/17 [Rx] Omeprazole [PriLOSEC] 40 mg PO DAILY 11/05/17 [History] Docusate [Colace] 100 mg PO DAILY #30 capsule 11/11/17 [Rx] Atorvastatin [Lipitor] 40 mg PO HS 12/06/17 [History] Ergocalciferol (VITAMIN D2) [Vitamin D2] 50,000 unit PO WE 12/06/17 [History] Insulin Regular Human [Humulin R] 0 - 10 units SQ TIDWM 12/06/17 [History] Morphine Oral CONC [Roxanol] 0.5 ml PO TID 12/06/17 [History] raNITIdine HCl [Zantac] 150 mg PO DAILY 12/06/17 [History] 3 Allergy/AdvReac Type Severity Reaction Status Date / Time metformin Allergy Nausea Verified 12/06/17 16:50 Sulfa (Sulfonamide Allergy Nausea Verified 12/06/17 16:50 Antibiotics) sulfamethoxazole Allergy Nausea Verified 12/06/17 16:50 [From Bactrim] trimethoprim [From Bactrim] Allergy Nausea Verified 12/06/17 16:50 All Systems PM: A 10-system review of systems was performed and is negative for pertinent findings except as documented above in the HPI. - Constitutional Constitutional: fatigue, malaise - EENT Eyes: no change in vision, no loss of vision Ears: no ear discharge Nose, mouth and throat: dry mouth, no mouth pain - Cardiovascular Cardiovascular ROS IM: no chest pain, no dyspnea, no dyspnea on exertion, no orthopnea - Respiratory Respiratory: no cough, no hemoptysis, no dyspnea on exertion, no chest congestion - Gastrointestinal Gastrointestinal: abdominal pain, dyspepsia, nausea, vomiting - Genitourinary Genitourinary: no dysuria, no flank pain, no nocturia - Musculoskeletal Musculoskeletal ROS IM: no arthralgias, no joint swelling - Integumentary Integumentary IM: no erythema, no rash - Neurological Neurological ROS: no confusion, no numbness - Endocrine Endocrine IM: no cold intolerance, no flushing - Hematologic/Lymphatic Hematologic/Lymphatic: no easy bruising - Allergic/Immunologic Allergic/Immunologic: no wheezing - Constitutional Vitals: Temp Pulse Resp BP Pulse Ox 97.9 F 91 17 152/88 96 12/06/17 17:58 12/06/17 17:58 12/06/17 17:58 12/06/17 17:58 12/06/17 17:58 General appearance: Present: A&O X 3, severe distress Exam: Retching in the bed - Head Head exam: Present: normocephalic - Eye Eye exam: Present: EOMI, PERRL, conjuntiva pink - ENT ENT exam: Present: mucous membranes dry - Respiratory Respiratory exam: Present: CTAB. Absent: rales, rhonchi, wheezes - Cardiovascular Cardiovascular exam: Present: RRR, tachycardia - GI/Abdominal GI/Abdominal exam: Present: normal bowel sounds, soft, tenderness. Absent: mass Additional comments: Mild tenderness in epigastric region - Extremities Exam Extremities exam: Present: warm. Absent: pedal edema - Neurological Exam Neurological exam: Present: alert, oriented X3 - Skin Skin exam: Present: dry, warm Internal Med - H&P Results - Labs CBC & Chem 7: 12/06/17 14:57 12/06/17 14:57 - Assessment and plan (1) Gastroparesis Current Visit: No Status: Acute Assessment and plan: Appears to have significant issues with this at this time. NPO. IV Reglan Bowel rest. (2) Abdominal pain Current Visit: Yes Status: Acute Assessment and plan: Most likely related to gastroparesis and vomiting. Hold narcotics at this time due to motility issues Qualifiers: Abdominal location: generalized Qualified Code(s): R10.84 - Generalized abdominal pain (3) Hypomagnesemia Current Visit: No Status: Acute Assessment and plan: Replace. Recheck in AM. (4) Type 2 diabetes mellitus Current Visit: No Status: Chronic Assessment and plan: Monitor blood sugars and cover. Holding long term acute care registered nurse insulin for now. 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 Continue meds. Qualifiers: Hypertension type: essential hypertension Qualified Code(s): I10 - Essential (primary) hypertension (6) CAD (coronary artery disease) Current Visit: No Status: Chronic Assessment and plan: Chronic issue Qualifiers: Coronary Disease-Associated Artery/Lesion type: [place] artery [place] vs. transplanted heart: [place] heart Associated angina: without angina Qualified Code(s): I25.10 - Atherosclerotic heart disease of [place] coronary artery without angina pectoris - Time Spent With Patient Total time spent is greater than 50% in coordination of care (as documented) at patient's floor/unit and/or counseling patient:
[2017-12-06] MEDS ORDERED: Ondansetron 4 MG/2 ML VIAL IVP PRN (18:47)
[2017-12-06] MEDS ORDERED: *HR* Dextrose 50 % in Water (Syg) 50 ML SYRINGE IVP PRN (18:48)
[2017-12-06] MEDS ORDERED: D5% in Water 1,000 ML IVC PRN (18:48)
[2017-12-06] MEDS ORDERED: Dextrose Gel 15 GM/37.5 ML TUBE PO PRN ×2 (18:48)
[2017-12-06] MEDS: Primidone 50 MG TABLET PO SCH (21:25)
[2017-12-06] MEDS: Acetaminophen 325 MG TABLET PO PRN (21:25)
[2017-12-06] MEDS: Pregabalin 50 MG CAPSULE PO SCH (21:25)
[2017-12-06] MEDS: Ringers Solution, Lactated 1,000 ML IVC SCH (21:26)
[2017-12-06] MEDS: Topiramate 25 MG TABLET PO SCH (21:26)
[2017-12-07] MEDS: Metoclopramide 10 MG/2 ML VIAL IVP SCH ×4 (01:10→17:26)
[2017-12-07] MEDS: Insulin LISPRO 300 UNITS/3 ML VIAL SQ SCH ×5 (01:10→21:45)
[2017-12-07 03:47] LABS: Hematocrit 37.5 % (35.3-44.9); Hemoglobin 12.4 g/dL (11.5-15.4); Mean Corpuscular HGB Conc 33.1 g/dL (31.6-35.5); Mean Corpuscular Hemoglobin 29.2 pg (28.0-33.3); Mean Corpuscular Volume 88.2 fL (83.0-100.0); Mean Platelet Volume 10.4 fL (9.4-12.4); Platelet Count 129 K/mcL (140-400); Red Blood Count 4.25 M/mcL (3.82-4.97); Red Cell Distribution Width 14.6 % (11.5-14.5)
[2017-12-07 04:08] LABS: BUN/Creatinine Ratio 16 (6-26); Blood Urea Nitrogen 14 mg/dL (8-23); Carbon Dioxide 27 mEq/L (23-29); Chloride 108 mEq/L (98-107); Glucose 146 mg/dL (70-105); Magnesium 1.9 mg/dL (1.6-2.6); Osmolality,Calculated 297 (280-300); Potassium 3.4 mEq/L (3.5-5.1); Sodium 142 mEq/L (136-145); eGFR For African Americans > 60 (> 60); eGFR For Non-African Americans > 60 (> 60)
[2017-12-07] MEDS ORDERED: *HR* Enoxaparin 30 MG/0.3 ML SYRINGE SQ SCH (06:00)
[2017-12-07] MEDS: Loratadine 10 MG TABLET PO SCH (09:09)
[2017-12-07] MEDS: Pregabalin 50 MG CAPSULE PO SCH ×3 (09:09→21:12)
[2017-12-07] MEDS: Folic Acid 1 MG TABLET PO SCH (09:09)
[2017-12-07] MEDS: Aspirin 81 MG TAB.CHEW PO SCH (09:09)
[2017-12-07] MEDS: Famotidine 20 MG TABLET PO SCH (09:09)
[2017-12-07] MEDS: Topiramate 25 MG TABLET PO SCH ×2 (09:10→21:12)
[2017-12-07] MEDS: Metoprolol XL (24 HR) Succ 25 MG TAB.ER.24H PO SCH (09:10)
[2017-12-07] MEDS: Fluticasone Propionate Nasal 50 MCG/SPRAY BOTTLE NS SCH (10:53)
[2017-12-07] MEDS: traMADol 50 MG TABLET PO SCH ×3 (10:54→21:12)
[2017-12-07] MEDS: Ringers Solution, Lactated 1,000 ML IVC SCH (12:25)
--- NOTE | 2017-12-07 16:06 | Internal Med Progress Note ---
Date of Encounter: 12/07/17 Time of Encounter: 09:15 - Assessment and plan (1) Gastroparesis Current Visit: No Status: Acute Assessment and plan: Continues to be nauseated and unable to take much PO. Will order clear liquid diet if she would like to try. Continue IV Reglan and IV fluids. ? if this is a cyclic vomiting syndrome or abdominal migraine since it appears to happen the same time each month. Will discuss any history of migraines with her and consider an abortive med or prophylaxis. (2) Abdominal pain Current Visit: Yes Status: Acute Assessment and plan: Most likely related to gastroparesis and vomiting. Pain is still there but overall seems to be a little better. Restart Ultram today. Qualifiers: Abdominal location: generalized Qualified Code(s): R10.84 - Generalized abdominal pain (3) Hypomagnesemia Current Visit: No Status: Acute Assessment and plan: Resolved (4) Type 2 diabetes mellitus Current Visit: No Status: Chronic Assessment and plan: Currently holding long acting insulin since she is not taking much in PO. Continue to monitor blood sugars and cover as needed. Qualifiers: Diabetes mellitus usp insulin use: with usp use Diabetes mellitus complication status: with hyperglycemia Qualified Code(s): E11.65 - Type 2 diabetes mellitus with hyperglycemia; Z79.4 - assisted (current) use of insulin (5) HTN (hypertension) Current Visit: No Status: Chronic Assessment and plan: Very uncontrolled yesterday but somewhat better today. Continue meds. Qualifiers: Hypertension type: essential hypertension Qualified Code(s): I10 - Essential (primary) hypertension (6) CAD (coronary artery disease) Current Visit: No Status: Chronic Assessment and plan: Chronic issue Qualifiers: Coronary Disease-Associated Artery/Lesion type: [place] artery [place] vs. transplanted heart: [place] heart Associated angina: without angina Qualified Code(s): I25.10 - Atherosclerotic heart disease of [place] coronary artery without angina pectoris (7) Hypokalemia Current Visit: No Status: Acute Assessment and plan: New today. Will replace today and recheck tomorrow. Oral potassium given. (8) CLL (chronic lymphocytic leukemia) Current Visit: Yes Status: Chronic Assessment and plan: Chronic issue. Not on treatment at this time. - Time Spent With Patient Total time spent is greater than 50% in coordination of care (as documented) at patient's floor/unit and/or counseling patient: - Subjective Interval history: Ms Vargas is currently admitted for abdominal pain and intractable nausea and vomiting presumed due to gastroparesis. She remains moderate to high risk due to potential for worsening clinical status. Ms Vargas is still nauseated though pain is a little better. She really does not want to try anything PO at this time. No fever or chills. No cough. Her vomiting has been somewhat better overnight as well. No diarrhea. No constipation. - Constitutional Vitals: Temp Pulse Resp BP Pulse Ox 98.0 F 74 16 144/76 92 12/07/17 11:02 12/07/17 11:02 12/07/17 11:02 12/07/17 11:02 12/07/17 11:02 General appearance: Present: A&O X 3, answers questions appropriately - Head Head exam: Present: normocephalic - Eye Eye exam: Present: EOMI, conjuntiva pink - ENT ENT exam: Present: mucous membranes dry - Respiratory Respiratory exam: Present: decreased breath sounds. Absent: rales, rhonchi, wheezes - Cardiovascular Cardiovascular exam: Present: RRR. Absent: tachycardia - GI/Abdominal GI/Abdominal exam: Present: hypoactive bowel sounds, soft, tenderness. Absent: mass Additional comments: Some tenderness in epigastric area. No peritoneal signs. - Extremities Exam Extremities exam: Present: warm. Absent: pedal edema, tenderness - Neurological Exam Neurological exam: Present: alert, oriented X3, no focal deficits - Skin Skin exam: Present: dry, warm Internal Medicine: Result - Labs CBC & Chem 7: 12/07/17 03:36 12/07/17 03:36 Consult Discharge Plan - Plan Referrals: Mariaelena Vasquez, LIFE INSURANCE UNDERWRITER [Primary Care Provider] -
--- NOTE | 2017-12-07 16:29 | Electrocardiograph Report ---
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
[2017-12-07] MEDS: Primidone 50 MG TABLET PO SCH (21:13)
[2017-12-08] MEDS: Metoclopramide 10 MG/2 ML VIAL IVP SCH ×2 (00:58→05:38)
[2017-12-08] MEDS: *HR* Enoxaparin 40 MG/0.4 ML SYRINGE SQ SCH (05:37)
[2017-12-08 05:45] LABS: Hematocrit 34.1 % (35.3-44.9); Hemoglobin 11.2 g/dL (11.5-15.4); Immature Platelets 3.9 % (1.1-6.1); Mean Corpuscular HGB Conc 32.8 g/dL (31.6-35.5); Mean Corpuscular Hemoglobin 28.9 pg (28.0-33.3); Mean Corpuscular Volume 88.1 fL (83.0-100.0); Red Blood Count 3.87 M/mcL (3.82-4.97); Red Cell Distribution Width 14.7 % (11.5-14.5)
[2017-12-08 05:56] LABS: BUN/Creatinine Ratio 15 (6-26); Blood Urea Nitrogen 13 mg/dL (8-23); Calcium 8.4 mg/dL (8.6-10.3); Carbon Dioxide 25 mEq/L (23-29); Chloride 112 mEq/L (98-107); Glucose 99 mg/dL (70-105); Magnesium 1.6 mg/dL (1.6-2.6); Osmolality,Calculated 298 (280-300); Sodium 144 mEq/L (136-145); eGFR For African Americans > 60 (> 60); eGFR For Non-African Americans > 60 (> 60)
[2017-12-08] MEDS: Insulin LISPRO 300 UNITS/3 ML VIAL SQ SCH ×4 (08:29→21:20)
[2017-12-08] MEDS: Pregabalin 50 MG CAPSULE PO SCH ×3 (09:01→21:18)
[2017-12-08] MEDS: traMADol 50 MG TABLET PO SCH ×3 (09:01→21:18)
[2017-12-08] MEDS: Topiramate 25 MG TABLET PO SCH ×2 (09:02→21:18)
[2017-12-08] MEDS: Loratadine 10 MG TABLET PO SCH (09:02)
[2017-12-08] MEDS: Folic Acid 1 MG TABLET PO SCH (09:02)
[2017-12-08] MEDS: Metoprolol XL (24 HR) Succ 25 MG TAB.ER.24H PO SCH (09:02)
[2017-12-08] MEDS: Aspirin 81 MG TAB.CHEW PO SCH (09:02)
[2017-12-08] MEDS: Famotidine 20 MG TABLET PO SCH (09:02)
[2017-12-08] MEDS: Fluticasone Propionate Nasal 50 MCG/SPRAY BOTTLE NS SCH (09:09)
[2017-12-08] MEDS ORDERED: MORPHINE PO PRN (10:43)
--- NOTE | 2017-12-08 10:45 | Internal Med Progress Note ---
Date of Encounter: 12/08/17 Time of Encounter: 10:30 - Assessment and plan (1) Gastroparesis Current Visit: No Status: Acute Assessment and plan: Appears to be improving very slowly. Will increase diet today and see if she can tolerate. Continue antiemetics as needed. (2) Abdominal pain Current Visit: Yes Status: Acute Assessment and plan: Discussed possibility of "abdominal migraine" Has no history of migraines. Will try low dose Doxepin. Qualifiers: Abdominal location: generalized Qualified Code(s): R10.84 - Generalized abdominal pain (3) Hypomagnesemia Current Visit: No Status: Resolved Assessment and plan: Resolved (4) Type 2 diabetes mellitus Current Visit: No Status: Chronic Assessment and plan: Uncontrolled. Will restart long acting insulin as she is taking more PO now. Continue coverage. Qualifiers: Diabetes mellitus halfway insulin use: with retail shift leader use Diabetes mellitus complication status: with hyperglycemia Qualified Code(s): E11.65 - Type 2 diabetes mellitus with hyperglycemia; Z79.4 - assessment analyst (current) use of insulin (5) HTN (hypertension) Current Visit: No Status: Chronic Assessment and plan: Better controlled today on current regimen. Qualifiers: Hypertension type: essential hypertension Qualified Code(s): I10 - Essential (primary) hypertension (6) CAD (coronary artery disease) Current Visit: No Status: Chronic Assessment and plan: Chronic issue Qualifiers: Coronary Disease-Associated Artery/Lesion type: [place] artery [place] vs. transplanted heart: [place] heart Associated angina: without angina Qualified Code(s): I25.10 - Atherosclerotic heart disease of [place] coronary artery without angina pectoris (7) Hypokalemia Current Visit: No Status: Resolved Assessment and plan: Resolved with replacement. (8) CLL (chronic lymphocytic leukemia) Current Visit: Yes Status: Chronic Assessment and plan: Chronic issue. Not on treatment at this time. - Time Spent With Patient Total time spent is greater than 50% in coordination of care (as documented) at patient's floor/unit and/or counseling patient: - Subjective Interval history: Ms Vargas is currently admitted for abdominal pain and intractable nausea and vomiting presumed due to gastroparesis. She remains moderate to high risk due to potential for worsening clinical status. Ms Vargas tolerated some clear liquids. Had some pain this AM - wants morphine restarted. Again we discussed narcotic use in gastroparesis. Denies history of migraines. Appears this happens cyclically. We discussed trying some Doxepin and taking the Reglan late in the month to prevent it. - Constitutional Vitals: Temp Pulse Resp BP Pulse Ox 98.4 F 98 17 146/79 95 12/08/17 10:37 12/08/17 10:37 12/08/17 10:37 12/08/17 10:37 12/08/17 10:37 General appearance: Present: A&O X 3, answers questions appropriately - Head Head exam: Present: normocephalic - Eye Eye exam: Present: conjuntiva pink - ENT ENT exam: Present: mucous membranes moist - Respiratory Respiratory exam: Present: decreased breath sounds. Absent: rales, rhonchi, wheezes - Cardiovascular Cardiovascular exam: Present: distant heart sounds, RRR. Absent: tachycardia - GI/Abdominal GI/Abdominal exam: Present: normal bowel sounds, soft, tenderness Additional comments: Minimal tenderness LUQ area. - Extremities Exam Extremities exam: Present: warm. Absent: tenderness - Neurological Exam Neurological exam: Present: alert, oriented X3 - Skin Skin exam: Present: dry, warm Internal Medicine: Result - Labs CBC & Chem 7: 12/08/17 05:19 12/08/17 05:19 Labs: Short CBC 12/08/17 Range/Units 05:19 WBC 7.8 (4.3-11.1) K/mcL Hgb 11.2 L (11.5-15.4) g/dL Hct 34.1 L (35.3-44.9) % Plt Count 94 L (140-400) K/mcL BMP 12/08/17 05:19 Sodium 144 Potassium 4.0 Chloride 112 H Carbon Dioxide 25 BUN 13 Creatinine 0.84 Glucose 99 Calcium 8.4 L Consult Discharge Plan - Plan Referrals: Mariaelena Vasquez, HUMAN FACTORS SPECIALIST [Primary Care Provider] -
[2017-12-08] MEDS: MORPHINE SUL Oral CONC 10 MG/0.5 ML ORAL.SYG PO PRN (12:13)
[2017-12-08] MEDS ORDERED: LIXISENATIDE SQ SCH (21:00)
[2017-12-08] MEDS ORDERED: INSULIN GLARGINE SQ SCH (21:00)
[2017-12-08] MEDS: Primidone 50 MG TABLET PO SCH (21:18)
[2017-12-09] MEDS: *HR* Enoxaparin 40 MG/0.4 ML SYRINGE SQ SCH (05:52)
[2017-12-09 06:29] LABS: BUN/Creatinine Ratio 14 (6-26); Blood Urea Nitrogen 12 mg/dL (8-23); Calcium 8.4 mg/dL (8.6-10.3); Carbon Dioxide 28 mEq/L (23-29); Chloride 107 mEq/L (98-107); Glucose 215 mg/dL (70-105); Magnesium 1.4 mg/dL (1.6-2.6); Osmolality,Calculated 300 (280-300); Potassium 3.3 mEq/L (3.5-5.1); Sodium 142 mEq/L (136-145); eGFR For African Americans > 60 (> 60); eGFR For Non-African Americans > 60 (> 60)
[2017-12-09] MEDS: Insulin LISPRO 300 UNITS/3 ML VIAL SQ SCH ×4 (08:31→21:09)
[2017-12-09] MEDS: Aspirin 81 MG TAB.CHEW PO SCH (08:32)
[2017-12-09] MEDS: Famotidine 20 MG TABLET PO SCH (08:32)
[2017-12-09] MEDS: Metoprolol XL (24 HR) Succ 25 MG TAB.ER.24H PO SCH (08:32)
[2017-12-09] MEDS: Loratadine 10 MG TABLET PO SCH (08:32)
[2017-12-09] MEDS: Folic Acid 1 MG TABLET PO SCH (08:32)
[2017-12-09] MEDS: Topiramate 25 MG TABLET PO SCH ×2 (08:32→21:08)
[2017-12-09] MEDS: Pregabalin 50 MG CAPSULE PO SCH ×3 (08:32→21:09)
[2017-12-09] MEDS: traMADol 50 MG TABLET PO SCH ×3 (08:32→21:08)
[2017-12-09] MEDS: Fluticasone Propionate Nasal 50 MCG/SPRAY BOTTLE NS SCH (08:33)
--- NOTE | 2017-12-09 12:02 | Internal Med Progress Note ---
Date of Encounter: 12/09/17 Time of Encounter: 11:40 - Assessment and plan (1) Gastroparesis Current Visit: No Status: Acute Assessment and plan: At this time she is tolerating diet but still having pain. Continue antiemetics. Will ask GI for input on possible other issues. (2) Abdominal pain Current Visit: Yes Status: Acute Assessment and plan: Pain persists. GI to see and see if needs any other work up. Qualifiers: Abdominal location: generalized Qualified Code(s): R10.84 - Generalized abdominal pain (3) Hypomagnesemia Current Visit: No Status: Acute Assessment and plan: Present again. Replace. (4) Type 2 diabetes mellitus Current Visit: No Status: Chronic Assessment and plan: Continued uncontrolled. Will increase her long acting insulin to home dose tomorrow (to be NPO tonight). Continue accuchecks and coverage. Qualifiers: Diabetes mellitus longterm insulin use: with volunteer services specialist use Diabetes mellitus complication status: with hyperglycemia Qualified Code(s): E11.65 - Type 2 diabetes mellitus with hyperglycemia; Z79.4 - tamper operator (current) use of insulin (5) HTN (hypertension) Current Visit: No Status: Chronic Assessment and plan: Controlled now. Qualifiers: Hypertension type: essential hypertension Qualified Code(s): I10 - Essential (primary) hypertension (6) CAD (coronary artery disease) Current Visit: No Status: Chronic Assessment and plan: Chronic issue Qualifiers: Coronary Disease-Associated Artery/Lesion type: [place] artery [place] vs. transplanted heart: [place] heart Associated angina: without angina Qualified Code(s): I25.10 - Atherosclerotic heart disease of [place] coronary artery without angina pectoris (7) Hypokalemia Current Visit: No Status: Acute Assessment and plan: New again today. Replace. (8) CLL (chronic lymphocytic leukemia) Current Visit: Yes Status: Chronic Assessment and plan: Chronic issue. Not on treatment at this time. - Time Spent With Patient Total time spent is greater than 50% in coordination of care (as documented) at patient's floor/unit and/or counseling patient: - Subjective Interval history: Ms Vargas is currently admitted for abdominal pain and intractable nausea and vomiting presumed due to gastroparesis. She remains moderate to high risk due to potential for worsening clinical status. Ms Vargas is tolerating some diet but still is having abdominal pain. No fever or chills. Nausea seems somewhat better. No CP or SOB. No diarrhea. - Constitutional Vitals: Temp Pulse Resp BP Pulse Ox 98.3 F 78 14 149/80 94 12/09/17 11:31 12/09/17 11:31 12/09/17 11:31 12/09/17 11:31 12/09/17 11:31 General appearance: Present: A&O X 3, answers questions appropriately - Head Head exam: Present: normocephalic - Eye Eye exam: Present: EOMI, conjuntiva pink - ENT ENT exam: Present: mucous membranes dry - Respiratory Respiratory exam: Present: CTAB. Absent: rhonchi, wheezes - Cardiovascular Cardiovascular exam: Present: RRR. Absent: tachycardia - GI/Abdominal GI/Abdominal exam: Present: soft, tenderness Additional comments: Minimal epigastric tenderness. - Extremities Exam Extremities exam: Present: warm. Absent: tenderness - Neurological Exam Neurological exam: Present: alert, oriented X3 - Skin Skin exam: Present: dry, warm Internal Medicine: Result - Labs CBC & Chem 7: 12/08/17 05:19 12/09/17 05:39 Labs: [facility] 12/09/17 05:39 Sodium 142 Potassium 3.3 L Chloride 107 Carbon Dioxide 28 BUN 12 Creatinine 0.88 Glucose 215 H Calcium 8.4 L Consult Discharge Plan - Plan Referrals: Mariaelena Vasquez SHAKER OUT [Primary Care Provider] -
[2017-12-09] MEDS: MORPHINE SUL Oral CONC 10 MG/0.5 ML ORAL.SYG PO PRN (12:04)
[2017-12-09] MEDS ORDERED: Magnesium Sulfate 2 GM in D5% in Water 100 ML IVPB ONE (14:48)
--- NOTE | 2017-12-09 16:20 | Gastroenterology Consult Note ---
Date of Encounter: 12/09/17 Time of Encounter: 13:00 - Assessment and plan (1) Nausea & vomiting Current Visit: No Status: Acute Assessment and plan: Due to gastroparesis. She has been advised diet. She is noted to be on narcotics at home which can worsen gastroparesis. Will proceed with EGD tomorrow to rule out esophagitis, gastritis, duodenitis, PUD. Qualifiers: Vomiting type: cyclical vomiting Vomiting Intractability: intractable Qualified Code(s): G43.A1 - Cyclical vomiting, intractable - Time Spent With Patient Total time spent is greater than 50% in coordination of care (as documented) at patient's floor/unit and/or counseling patient: GI History of Present Illness - Data of Consult Patient: known to practice within the last 3 years Consult date: 12/09/17 Requesting Physician: Paul Robledo DO - Consult Narrative History of present illness: Ms. Vargas is a 67 year old female with hx of CLL and DM presented to ED with complaints of abdominal pain and nausea with vomiting. She says this happens every month during the last week of the month. She denies changes in diet or medications. She has a history of gastroparesis and has been on reglan in the past. No fever or chills. No diarrhea or constipation. She complains of abdominal pain. She is unable to tell me exactly which medications she is on at home. Her med list does include ultram and po morphine at home. She states she lives at home with her daughter. in law. Colonoscopy 08/30 2 tubular adenoma polyps EGD 03/01 [place] grade b esophagitis, chronic gastritis, gastroparesis Nsaids: asa anticoagulants: lovenox Past Med Surg Social Fam HX - Past Medical History Medical history: cancer, coronary artery disease, diabetes, hypertension, renal disease, other Additional medical history: CLL Psychiatric history: anxiety, depression - Past Surgical History Surgical History: appendectomy, cholecystectomy, THERESE/BSO, other Additional surgical history: left knee replacement - Social History Smoking Status: Never smoker Smokeless Tobacco Status: No Alcohol use: none Drug use: none - Family History Mother Family Member Ethnicity: Non- Living Status: Hx Family Cardiac Disorders: No Hx Family Respiratory Disorders: No Hx Family Cancer: No Hx Family GI Disorders: No Hx Family Endocrine Disorder: Yes (DM) Hx Family Neuromuscular Disorders: No Hx Family Neurologic Disorders: No Hx Family HEENT Disorders: No Hx Family Autoimmune Disorders: No Father Adopted: No Family Member Ethnicity: Non- Living Status: Hx Family Cardiac Disorders: Yes (SD) Hx Family Respiratory Disorders: No Hx Family Cancer: No Hx Family GI Disorders: No Hx Family Endocrine Disorder: No Hx Family Neuromuscular Disorders: No Hx Family Neurologic Disorders: No Hx Family HEENT Disorders: No Hx Family Autoimmune Disorders: No Review of Systems: GI: as per [place] GENERAL: denies fever or chills EYES: denies yellow discoloration ENT: denies pain with swallowing or difficulty swallowing CARDIO: denies chest pain, palpitations RESP: Shortness of breath with exertion : denies change in color of urine NEURO: weakness HEME: Denies any bruising MS: denies joint pain, joint swelling or back pain. DERM: denies rash or itching PSYCH: history of anxiety and depression - Constitutional Vitals: Temp Pulse Resp BP Pulse Ox 99.3 F 78 14 100/62 93 12/09/17 15:07 12/09/17 15:07 12/09/17 15:07 12/09/17 15:07 12/09/17 15:07 Exam: CONSTITUTIONAL:~alert, no acute distress.~HEAD:~normocephalic.~EYES:~no jaundice.~NECK:~no obvious swelling.~HEART:~regular rate and rhythm, no murmurs. ~LUNGS:~bilateral good air entry.~ABDOMEN:~non distended, soft, non tender, no masses palpable, no organomegaly.~RECTAL EXAM:~Deferred.~EXTREMITIES:~no clubbing, cyanosis or edema.~SKIN:~no stigmata of chronic liver disease.~ NEUROLOGIC:~no obvious focal defect.~~~~ Results - Labs CBC & Chem 7: 12/08/17 05:19 12/09/17 05:39 Labs: Last Result Calcium 8.4 mg/dL (8.6-10.3) L 12/09/17 05:39 Troponin I < 0.03 ng/mL (< 0.04) 12/06/17 14:57 Entire Visit Hgb 11.2 g/dL (11.5-15.4) L 12/08/17 05:19 Hct 34.1 % (35.3-44.9) L 12/08/17 05:19 Total Bilirubin 0.4 mg/dL (0.3-1.0) 12/06/17 14:57 AST 10 Units/L (13-39) L 12/06/17 14:57 ALT 11 Units/L (7-52) 12/06/17 14:57 Lipase 15 Units/L (11-82) 12/06/17 14:57 Consult Discharge Plan - Plan Referrals: Mariaelena Vasquez, AMBULANCE DRIVER [Primary Care Provider] -
[2017-12-09] MEDS: Primidone 50 MG TABLET PO SCH (21:08)
[2017-12-09] MEDS: Insulin DETEMIR 100 UNIT/ML X5UNITS SQ SCH (21:09)
[2017-12-10] MEDS: *HR* Enoxaparin 40 MG/0.4 ML SYRINGE SQ SCH (05:52)
[2017-12-10 06:32] LABS: BUN/Creatinine Ratio 15 (6-26); Blood Urea Nitrogen 13 mg/dL (8-23); Calcium 8.7 mg/dL (8.6-10.3); Carbon Dioxide 28 mEq/L (23-29); Chloride 106 mEq/L (98-107); Glucose 205 mg/dL (70-105); Magnesium 1.5 mg/dL (1.6-2.6); Osmolality,Calculated 296 (280-300); Potassium 3.6 mEq/L (3.5-5.1); Sodium 140 mEq/L (136-145); eGFR For African Americans > 60 (> 60); eGFR For Non-African Americans > 60 (> 60)
[2017-12-10] MEDS: Insulin LISPRO 300 UNITS/3 ML VIAL SQ SCH ×4 (07:41→21:20)
[2017-12-10] MEDS: traMADol 50 MG TABLET PO SCH ×3 (08:19→21:19)
[2017-12-10] MEDS: Famotidine 20 MG TABLET PO SCH (08:19)
[2017-12-10] MEDS: Pregabalin 50 MG CAPSULE PO SCH ×3 (08:19→21:19)
[2017-12-10] MEDS: Metoprolol XL (24 HR) Succ 25 MG TAB.ER.24H PO SCH (08:20)
[2017-12-10] MEDS: Folic Acid 1 MG TABLET PO SCH (08:20)
[2017-12-10] MEDS: Aspirin 81 MG TAB.CHEW PO SCH (08:20)
[2017-12-10] MEDS: Fluticasone Propionate Nasal 50 MCG/SPRAY BOTTLE NS SCH (08:20)
[2017-12-10] MEDS: Loratadine 10 MG TABLET PO SCH (08:20)
[2017-12-10] MEDS: Topiramate 25 MG TABLET PO SCH ×2 (08:20→21:19)
[2017-12-10] MEDS ORDERED: Propofol 500 MG/50 ML INFUS..BTL ONE (12:58)
[2017-12-10] MEDS ORDERED: *HR* Propofol 200 MG/20 ML VIAL IVP ONE (12:58)
[2017-12-10] MEDS ORDERED: Lidocaine -MPF 2% 2 ML VIAL ONE (12:58)
--- NOTE | 2017-12-10 13:22 | Anesthesia Evaluation PreOp ---
Date of Encounter: 12/10/17 Time of Encounter: 13:46 - Past History Planned Operation: EGD Cardiac History: HTN, Hyperlipidemia, Other (CAD) Pulmonary History: Denies Any Significant HX FIREARMS EXPERT History: Other (CLL) Other Medical History: Diabetes Type II Anesthesia History: No Prior Anesthetic Complications, Past Anesthesia : No Alcohol Use: none Drug use: none Medications and Allergies Aspirin 81 mg PO DAILY 04/05/15 [History] Topiramate [Topamax] 25 mg PO BID 08/23/15 [History] Folic Acid 1 mg PO DAILY #30 tablet 09/18/15 [Rx] Primidone [Mysoline] 50 mg PO HS 02/28/16 [History] Ascorbic Acid [Vitamin C] 500 mg PO DAILY 03/06/16 [History] Ferrous Sulfate [Iron] 325 mg PO DAILY 03/06/16 [History] Fluticasone Propionate Nasal [Flonase] 100 mcg NS DAILY 11/26/16 [History] Insulin Glargine/Lixisenatide [Soliqua 100 Unit-33 Mcg/ml Pen] 60 unit SQ HS [History] Tramadol HCl [Ultram] 50 mg PO TID 11/26/16 [History] Cyanocobalamin (Vitamin B-12) [Vitamin B-12] 500 mcg PO DAILY 05/06/17 [History] Linagliptin [Tradjenta] 5 mg PO DAILY 05/06/17 [History] Loratadine [Claritin] 10 mg PO DAILY 05/06/17 [History] Metoprolol XL (24 HR) Succ [Toprol Xl] 25 mg PO DAILY 05/06/17 [History] Pioglitazone [Actos] 15 mg PO DAILY 05/06/17 [History] Pregabalin [Lyrica] 100 mg PO TID 05/06/17 [History] Sucralfate [Carafate] 1 gm PO QID 05/06/17 [History] Acetaminophen [Tylenol] 650 mg PO Q6HR PRN tablet 07/10/17 [Rx] Metoclopramide [Reglan] 5 mg PO TIDAC #60 tablet 08/21/17 [Rx] Albuterol Neb [Proventil Neb] 2.5 mg IH Q4H PRN #1 inhsol 09/22/17 [Rx] Omeprazole [PriLOSEC] 40 mg PO DAILY 11/05/17 [History] Docusate [Colace] 100 mg PO DAILY #30 capsule 11/11/17 [Rx] Atorvastatin [Lipitor] 40 mg PO HS 12/06/17 [History] Ergocalciferol (VITAMIN D2) [Vitamin D2] 50,000 unit PO WE 12/06/17 [History] Insulin Regular Human [Humulin R] 0 - 10 units SQ TIDWM 12/06/17 [History] Morphine Oral CONC [Roxanol] 0.25 ml PO Q4H PRN 12/06/17 [History] raNITIdine HCl [Zantac] 150 mg PO DAILY 12/06/17 [History] 3 Allergy/AdvReac Type Severity Reaction Status Date / Time metformin Allergy Nausea Verified 12/06/17 16:50 Sulfa (Sulfonamide Allergy Nausea Verified 12/06/17 16:50 Antibiotics) sulfamethoxazole Allergy Nausea Verified 12/06/17 16:50 [From Bactrim] trimethoprim [From Bactrim] Allergy Nausea Verified 12/06/17 16:50 - Meds/Allergy Pre-op Review Medications Reviewed: Yes Allergies Reviewed: Yes Beta Blockers on Current Med List: No Anesthesia Results - Labs 12/08/17 05:19 12/10/17 05:51 - Imaging Additional studies: stress 04/2017 negative for ischemia echocardiogram 04/2017 Impressions: LVEF 60-65%. Mild left ventricular diastolic dysfunction. Mild pulmonary hypertension. No significant valvular dysfunction. Anesthesia Exam Vital Signs/O2 Sat, Most Current Temp Pulse Resp BP Pulse Ox 97.8 F 76 15 137/80 94 12/10/17 10:00 12/10/17 10:00 12/10/17 10:00 12/10/17 10:00 12/10/17 10:00 Weight: 102.9 kg NPO (# of Hours): 8 - HEENT Pupil (Motor): Pupils equal Mallampati: II - FIREARMS EXPERT LOC: Oriented FIREARMS EXPERT Motor: Normal RUE, Normal LUE, Normal RLE, Normal LLE, Normal Face FIREARMS EXPERT Sensory: Normal: RUE, LUE, RLE, LLE, Face - Cardiac Rhythm: Regular Murmur: None - Pulmonary Breath Sounds: bilateral Clear Respiratory Effort: Symmetrical Anesthesia Assess/Plan ASA Score: 2 Modified Andressa Scale for Level of Consciousness: Cooperative, oriented, and tranquil Anesthetic Plan: MAC Monitoring Plan: Standard Monitors Recovery Plan: PACU
[2017-12-10] MEDS ORDERED: Ondansetron 4 MG/2 ML VIAL ONE (13:53)
--- NOTE | 2017-12-10 15:02 | Anesthesia Evaluation Post Op ---
Date of Encounter: 12/10/17 Time of Encounter: 15:05 - Vital Signs Vital Signs: Vital Signs - Last 8 Hours Temp Pulse Resp BP Pulse Ox 12/10/17 13:44 97.6 F 84 16 176/83 93 12/10/17 10:00 97.8 F 76 15 137/80 94 Intake and Output 12/09/17 12/10/17 12/10/17 23:59 07:59 15:59 Intake Total 584 / 584 800 / 800 0 / 0 Output Total 450 / 450 0 / 0 1000 / 1000 Balance 134 / 134 800 / 800 -1000 / -1000 Intake: IV Fluids 104 / 104 Magnesium Sulfate 2 GM In 104 / 104 Dextrose 5% 100 ML @ 104 mls/hr IVPB ONCE ONE Rx#:[id number] Oral 480 / 480 800 / 800 0 / 0 Output: Urine 450 / 450 0 / 0 1000 / 1000 Other: Meal Dinner NPO Percent of Meal Consumed 100% Stool Size Moderate Stool Consistency loose liquid Stool Color Brown # Bowel Movements 1 Weight 102.9 kg Blood Glucose* 222 185 211 Patient Weight 12/10/17 23:59 Weight 102.9 kg - Lungs Lungs: Clear Ascult./Percussion - Airway Airway: Non-obstructed - Cardiovascular Regular Rate, Baseline Rhythm - Mental Status Mental Status: Alert & Oriented, Answers Appropriately - Pain Pain Scale: 0 Pain Scale used: Numeric (1 - 10) - Nausea Vomiting Nausea Vomiting: Not Present - Hydration Hydration: NPO - Discharge PostOp Status: Transfer Patient to floor
[2017-12-10] MEDS ORDERED: Tetracaine/Benzocaine/Butamben 200MG/SPRAY (100SPY/BOT) ONE (15:26)
[2017-12-10] MEDS ORDERED: Simethicone 40 MG/0.6 ML MLS IR ONE (15:28)
--- NOTE | 2017-12-10 17:18 | Internal Med Progress Note ---
Date of Encounter: 12/10/17 Time of Encounter: 16:00 - Assessment and plan (1) Acute gastritis without bleeding Current Visit: No Status: Acute Assessment and plan: On PPI and Carafate. Qualifiers: Gastritis type: superficial Qualified Code(s): K29.00 - Acute gastritis without bleeding (2) Esophagitis, [place] grade A Current Visit: Yes Status: Acute Assessment and plan: Supportive care. PPI and Carafate. (3) Gastroparesis Current Visit: No Status: Acute Assessment and plan: Currently on antiemetics and Reglan. Evidence on EGD. Continue supportive care. (4) Abdominal pain Current Visit: Yes Status: Acute Assessment and plan: Had EGD today - has gastritis and esophagitis. Supportive care. Qualifiers: Abdominal location: generalized Qualified Code(s): R10.84 - Generalized abdominal pain (5) Hypomagnesemia Current Visit: No Status: Acute Assessment and plan: Persists today. Replace again today. (6) Type 2 diabetes mellitus Current Visit: No Status: Chronic Assessment and plan: Uncontrolled still. Increase her Levemir tomorrow - only on clear liquids tonight. Continue accuchecks and coverage. Qualifiers: Diabetes mellitus rn long term care insulin use: with rn long term care use Diabetes mellitus complication status: with hyperglycemia Qualified Code(s): E11.65 - Type 2 diabetes mellitus with hyperglycemia; Z79.4 - manager terminal (current) use of insulin (7) HTN (hypertension) Current Visit: No Status: Chronic Assessment and plan: Meds not give so somewhat higher today. Follow overnight. Qualifiers: Hypertension type: essential hypertension Qualified Code(s): I10 - Essential (primary) hypertension (8) CAD (coronary artery disease) Current Visit: No Status: Chronic Assessment and plan: Chronic issue Qualifiers: Coronary Disease-Associated Artery/Lesion type: [place] artery [place] vs. transplanted heart: [place] heart Associated angina: without angina Qualified Code(s): I25.10 - Atherosclerotic heart disease of [place] coronary artery without angina pectoris (9) Hypokalemia Current Visit: No Status: Resolved (10) CLL (chronic lymphocytic leukemia) Current Visit: Yes Status: Chronic Assessment and plan: Chronic issue. Not on treatment at this time. - Time Spent With Patient Total time spent is greater than 50% in coordination of care (as documented) at patient's floor/unit and/or counseling patient: - Subjective Interval history: Ms Vargas is currently admitted for abdominal pain and intractable nausea and vomiting presumed due to gastroparesis. She remains moderate to high risk due to potential for worsening clinical status. Ms Vargas just returned from EGD. She is somnolent but arousable. Had esophagitis, gastritis, gastroparesis. Still has pain. No fever or chills. No CP or SOB. - Constitutional Vitals: Temp Pulse Resp BP Pulse Ox 97.6 F 84 16 176/83 93 12/10/17 13:44 12/10/17 13:44 12/10/17 13:44 12/10/17 13:44 12/10/17 13:44 General appearance: Present: A&O X 3, answers questions appropriately - Head Head exam: Present: normocephalic - Eye Eye exam: Present: conjuntiva pink - ENT ENT exam: Present: mucous membranes dry - Respiratory Respiratory exam: Present: CTAB. Absent: rhonchi, wheezes - Cardiovascular Cardiovascular exam: Present: RRR. Absent: tachycardia - GI/Abdominal GI/Abdominal exam: Present: normal bowel sounds, soft - Extremities Exam Extremities exam: Present: warm. Absent: tenderness - Neurological Exam Neurological exam: Present: alert, oriented X3 - Skin Skin exam: Present: dry, warm Internal Medicine: Result - Labs CBC & Chem 7: 12/08/17 05:19 12/10/17 05:51 Labs: [facility] 12/10/17 05:51 Sodium 140 Potassium 3.6 Chloride 106 Carbon Dioxide 28 BUN 13 Creatinine 0.86 Glucose 205 H Calcium 8.7 Consult Discharge Plan - Plan Referrals: Mariaelena Vasquez, BOX MAKER [Primary Care Provider] -
[2017-12-10] MEDS: Insulin DETEMIR 100 UNIT/ML X5UNITS SQ SCH (21:19)
[2017-12-10] MEDS: Primidone 50 MG TABLET PO SCH (21:19)
[2017-12-11 06:13] LABS: Hematocrit 35.8 % (35.3-44.9); Hemoglobin 11.7 g/dL (11.5-15.4); Mean Corpuscular HGB Conc 32.7 g/dL (31.6-35.5); Mean Corpuscular Hemoglobin 28.2 pg (28.0-33.3); Mean Corpuscular Volume 86.3 fL (83.0-100.0); Mean Platelet Volume 10.4 fL (9.4-12.4); Platelet Count 106 K/mcL (140-400); Red Blood Count 4.15 M/mcL (3.82-4.97); Red Cell Distribution Width 14.4 % (11.5-14.5)
[2017-12-11 06:30] LABS: BUN/Creatinine Ratio 14 (6-26); Blood Urea Nitrogen 11 mg/dL (8-23); Calcium 8.9 mg/dL (8.6-10.3); Carbon Dioxide 28 mEq/L (23-29); Chloride 106 mEq/L (98-107); Glucose 162 mg/dL (70-105); Magnesium 1.9 mg/dL (1.6-2.6); Osmolality,Calculated 295 (280-300); Potassium 3.5 mEq/L (3.5-5.1); Sodium 141 mEq/L (136-145); eGFR For African Americans > 60 (> 60); eGFR For Non-African Americans > 60 (> 60)
[2017-12-11] MEDS: *HR* Enoxaparin 40 MG/0.4 ML SYRINGE SQ SCH (06:33)
[2017-12-11] MEDS: Insulin LISPRO 300 UNITS/3 ML VIAL SQ SCH ×2 (08:55→11:41)
[2017-12-11] MEDS: traMADol 50 MG TABLET PO SCH (08:56)
[2017-12-11] MEDS: Folic Acid 1 MG TABLET PO SCH (08:56)
[2017-12-11] MEDS: Aspirin 81 MG TAB.CHEW PO SCH (08:56)
[2017-12-11] MEDS: Fluticasone Propionate Nasal 50 MCG/SPRAY BOTTLE NS SCH (08:56)
[2017-12-11] MEDS: Metoprolol XL (24 HR) Succ 25 MG TAB.ER.24H PO SCH (08:57)
[2017-12-11] MEDS: Topiramate 25 MG TABLET PO SCH (08:57)
[2017-12-11] MEDS: Loratadine 10 MG TABLET PO SCH (08:57)
[2017-12-11] MEDS: Pregabalin 50 MG CAPSULE PO SCH (08:57)
[2017-12-11] MEDS: Famotidine 20 MG TABLET PO SCH (08:57)
[2017-12-11 10:51] VITALS: BP 120/75
--- NOTE | 2017-12-11 11:08 | Gastroenterology Progress Note ---
Date of Encounter: 12/15/17 Time of Encounter: 09:15 - Assessment and plan (1) Nausea & vomiting Status: Acute Assessment and plan: Improved presently, has chronic nausea and vomiting due to gastroparesis likely worsened by narcotic use. (2) Diarrhea Status: Acute Assessment and plan: Pt complains of new onset diarrhea. Is noted that she is on colace daily, will DC. She has also been on reglan QID, discussed with Dr Salcedo and he advised stopping reglan. Will need GI panel if diarrhea continues. Qualifiers: Diarrhea type: unspecified type Qualified Code(s): R19.7 - Diarrhea, unspecified - Time Spent With Patient Total time spent is greater than 50% in coordination of care (as documented) at patient's floor/unit and/or counseling patient: - Subjective Interval history: Pt is awake and sitting up in bed. She is status post EGD which showed gastroparesis. She states nausea and abdominal pain are some improved. She is complaining of frequent watery diarrhea. - Constitutional Vitals: Temp Pulse Resp BP Pulse Ox 98.5 F 81 16 120/75 93 12/11/17 10:43 12/11/17 10:43 12/11/17 10:43 12/11/17 10:43 12/11/17 10:43 Results - Labs CBC & Chem 7: 12/11/17 05:35 12/11/17 05:35 Labs: Last Result Calcium 8.9 mg/dL (8.6-10.3) 12/11/17 05:35 Troponin I < 0.03 ng/mL (< 0.04) 12/06/17 14:57 Entire Visit Hgb 11.7 g/dL (11.5-15.4) 12/11/17 05:35 Hct 35.8 % (35.3-44.9) 12/11/17 05:35 Total Bilirubin 0.4 mg/dL (0.3-1.0) 12/06/17 14:57 AST 10 Units/L (13-39) L 12/06/17 14:57 ALT 11 Units/L (7-52) 12/06/17 14:57 Lipase 15 Units/L (11-82) 12/06/17 14:57 Consult Discharge Plan - Plan Referrals: Mariaelena Vasquez, SCLEROSCOPE TESTER [Primary Care Provider] - 12/14/17 3:00 pm Prescriptions: Doxepin [Sinequan] 25 mg PO HS #30 capsule Metoclopramide [Reglan] 5 mg PO TIDAC PRN #40 tablet PRN Reason: nausea/vomiting
[2017-12-11] MEDS: Acetaminophen 325 MG TABLET PO PRN (12:29)
--- NOTE | 2017-12-11 13:40 | Discharge Summary ---
- NOTES TO OUTPATIENT PROVIDER Notes to Outpatient Provider: Pt admitted with recurrent episode of intractable nausea and vomiting thought due to gastroparesis. This was associated with abd pain. She had slow resolution of symptoms and continued pain so was seen by GI. Had EGD which showed gatritis and esophagitis. Continued on same meds. Doxepin added as symptoms appear cyclic. Also given Reglan to take when symptoms are starting. Date of Encounter: 12/11/17 Time of Encounter: 13:00 - Discharge Diagnosis (1) Gastroparesis Priority: Primary Status: Resolved (2) Acute gastritis without bleeding Priority: Secondary Status: Acute Qualifiers: Gastritis type: superficial Qualified Code(s): K29.00 - Acute gastritis without bleeding (3) Esophagitis, Bart[place] grade A Priority: Secondary Status: Acute (4) Abdominal pain Priority: Secondary Status: Resolved Qualifiers: Abdominal location: generalized Qualified Code(s): R10.84 - Generalized abdominal pain (5) Hypomagnesemia Priority: Secondary Status: Resolved (6) Type 2 diabetes mellitus Priority: Secondary Status: Chronic Qualifiers: Diabetes mellitus termite control 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 transplanted heart: [place] heart Associated angina: without angina Qualified Code(s): I25.10 - Atherosclerotic heart disease of [place] coronary artery without angina pectoris (9) Hypokalemia Priority: Secondary Status: Resolved (10) CLL (chronic lymphocytic leukemia) Priority: Secondary Status: Chronic Hospital course: Ms. Vargas is a 67 year old female with hx of multiple problems presented to ED with abd pain and vomiting. She has the same symptoms about the same time every month. She was admitted for further treatment. Ms Vargas was admitted to med surg. She was NPO and started on IV antiemetics. She had very slow resolution of her symptoms. Diet was increased as she tolerated. It was felt this was all gastroparesis. She had continued pain so was seen by GI and underwent EGD finding gastritis and esophagitis. Today she feels at baseline. She is able to tolerate PO diet and is not nauseous. She feels ready for discharge home. Discharge discussed with: patient - Time Spent with Patient Total time spent providing and/or coordinating discharge services: 42min - Discharge Medications Prescriptions: Doxepin [Sinequan] 25 mg PO HS #30 capsule Metoclopramide [Reglan] 5 mg PO TIDAC PRN #40 tablet PRN Reason: nausea/vomiting Home Medications: Aspirin 81 mg PO DAILY 04/05/15 [History] Topiramate [Topamax] 25 mg PO BID 08/23/15 [History] Folic Acid 1 mg PO DAILY #30 tablet 09/18/15 [Rx] Primidone [Mysoline] 50 mg PO HS 02/28/16 [History] Ascorbic Acid [Vitamin C] 500 mg PO DAILY 03/06/16 [History] Ferrous Sulfate [Iron] 325 mg PO DAILY 03/06/16 [History] Fluticasone Propionate Nasal [Flonase] 100 mcg NS DAILY 11/26/16 [History] Insulin Glargine/Lixisenatide [Soliqua 100 Unit-33 Mcg/ml Pen] 60 unit SQ HS [History] Tramadol HCl [Ultram] 50 mg PO TID 11/26/16 [History] Cyanocobalamin (Vitamin B-12) [Vitamin B-12] 500 mcg PO DAILY 05/06/17 [History] Linagliptin [Tradjenta] 5 mg PO DAILY 05/06/17 [History] Loratadine [Claritin] 10 mg PO DAILY 05/06/17 [History] Metoprolol XL (24 HR) Succ [Toprol Xl] 25 mg PO DAILY 05/06/17 [History] Pioglitazone [Actos] 15 mg PO DAILY 05/06/17 [History] Pregabalin [Lyrica] 100 mg PO TID 05/06/17 [History] Sucralfate [Carafate] 1 gm PO QID 05/06/17 [History] Acetaminophen [Tylenol] 650 mg PO Q6HR PRN tablet 07/10/17 [Rx] Albuterol Neb [Proventil Neb] 2.5 mg IH Q4H PRN #1 inhsol 09/22/17 [Rx] Omeprazole [PriLOSEC] 40 mg PO DAILY 11/05/17 [History] Docusate [Colace] 100 mg PO DAILY #30 capsule 11/11/17 [Rx] Atorvastatin [Lipitor] 40 mg PO HS 12/06/17 [History] Ergocalciferol (VITAMIN D2) [Vitamin D2] 50,000 unit PO WE 12/06/17 [History] Insulin Regular Human [Humulin R] 0 - 10 units SQ TIDWM 12/06/17 [History] Morphine Oral CONC [Roxanol] 0.25 ml PO Q4H PRN 12/06/17 [History] raNITIdine HCl [Zantac] 150 mg PO DAILY 12/06/17 [History] Doxepin [Sinequan] 25 mg PO HS #30 capsule 12/11/17 [Rx] Metoclopramide [Reglan] 5 mg PO TIDAC PRN #40 tablet 12/11/17 [Rx] Allergies/Adverse Reactions: 3 Allergy/AdvReac Type Severity Reaction Status Date / Time metformin Allergy Nausea Verified 12/06/17 16:50 Sulfa (Sulfonamide Allergy Nausea Verified 12/06/17 16:50 Antibiotics) sulfamethoxazole Allergy Nausea Verified 12/06/17 16:50 [From Bactrim] trimethoprim [From Bactrim] Allergy Nausea Verified 12/06/17 16:50 Date of admission: 12/07/17 15:05 Primary care physician: Mariaelena Vasquez CNP Consults: GI Discharging clinician: Paul Robledo Anticipated date of discharge: 12/11/17 - Constitutional Vitals: Temp Pulse Resp BP Pulse Ox 98.5 F 81 16 120/75 93 12/11/17 10:43 12/11/17 10:43 12/11/17 10:43 12/11/17 10:43 12/11/17 10:43 General appearance: Present: A&O X 3, answers questions appropriately - Head Head exam: Present: normocephalic - Eye Eye exam: Present: conjuntiva pink - ENT ENT exam: Present: mucous membranes moist - Respiratory Respiratory exam: Present: CTAB. Absent: rhonchi, wheezes - Cardiovascular Cardiovascular exam: Present: RRR. Absent: tachycardia - GI/Abdominal GI/Abdominal exam: Present: soft. Absent: tenderness - Extremities Exam Extremities exam: Present: warm. Absent: tenderness - Neurological Exam Neurological exam: Present: alert, oriented X3 - Skin Skin exam: Present: dry, warm. Absent: rash - Patient Status Disposition: Home, Self-Care Condition: Fair Functional capacity at discharge: independent ambulation Overall status at discharge: patient is progressing back to baseline - Discharge Instructions Follow Up With: Mariaelena Vasquez CNP [Primary Care Provider] - 12/14/17 3:00 pm - Diet and Activity Activity: increase activity as tolerated Diet: advance to your usual diet
== END 2017-12-11 15:55 | disposition home or self-care (01) | DRG 392 ==
LOC: EMEROO 14:28 → 3ANU 14:28 → SUATTDRO 17:01 → 3ANU 17:42
PROVIDERS: ADMIT Hospitalist; ATTEND Internal Medicine
PROC: ENDOEBX (2017-12-10 13:55)

== ENCOUNTER 2018-01-15 21:37 | Observation (INO) ==
--- NOTE | 2018-01-15 21:48 | Emergency Department Note ---
Disposition Clinical Impression: Abdominal pain, Nausea and vomiting, Gastroparesis Disposition: Admitted As Inpatient Condition: Fair General Adult HPI - General Chief complaint: ED Abdominal Pain Stated complaint: ABD Pain / N/V Time Seen by Provider: 01/15/18 21:42 Source: patient Limitations: no limitations - History of Present Illness Pain Scale: 10 - Related Data Home Medications Medication Instructions Recorded Confirmed Aspirin 81 mg PO DAILY 04/05/15 01/15/18 Topiramate [Topamax] 25 mg PO BID 08/23/15 01/15/18 Primidone [Mysoline] 50 mg PO HS 02/28/16 01/15/18 Ascorbic Acid [Vitamin C] 500 mg PO DAILY 03/06/16 01/15/18 Ferrous Sulfate [Iron] 325 mg PO DAILY 03/06/16 01/15/18 Fluticasone Propionate Nasal 100 mcg NS DAILY 11/26/16 01/15/18 [Flonase] Insulin Glargine/Lixisenatide 60 unit SQ HS 11/26/16 01/15/18 [Soliqua 100 Unit-33 Mcg/ml Pen] Tramadol HCl [Ultram] 50 mg PO TID 11/26/16 01/15/18 Cyanocobalamin (Vitamin B-12) 500 mcg PO DAILY 05/06/17 01/15/18 [Vitamin B-12] Linagliptin [Tradjenta] 5 mg PO DAILY 05/06/17 01/15/18 Loratadine [Claritin] 10 mg PO DAILY 05/06/17 01/15/18 Metoprolol XL (24 HR) Succ [Toprol 25 mg PO DAILY 05/06/17 01/15/18 Xl] Pioglitazone [Actos] 15 mg PO DAILY 05/06/17 01/15/18 Pregabalin [Lyrica] 100 mg PO TID 05/06/17 01/15/18 Sucralfate [Carafate] 1 gm PO QID 05/06/17 01/15/18 Omeprazole [PriLOSEC] 40 mg PO DAILY 11/05/17 01/15/18 Atorvastatin [Lipitor] 40 mg PO HS 12/06/17 01/15/18 Ergocalciferol (VITAMIN D2) 50,000 unit PO WE 12/06/17 01/15/18 [Vitamin D2] Insulin Regular Human [Humulin R] 0 - 10 units SQ TIDWM 12/06/17 01/15/18 Morphine Oral CONC [Roxanol] 0.25 ml PO Q4H PRN 12/06/17 01/15/18 raNITIdine HCl [Zantac] 150 mg PO DAILY 12/06/17 01/15/18 Previous Rx's Medication Instructions Recorded Folic Acid 1 mg PO DAILY #30 tablet 09/18/15 Acetaminophen [Tylenol] 650 mg PO Q6HR PRN tablet 07/10/17 Albuterol Neb [Proventil Neb] 2.5 mg IH Q4H PRN #1 inhsol 09/22/17 Docusate [Colace] 100 mg PO DAILY #30 capsule 11/11/17 Doxepin [Sinequan] 25 mg PO HS #30 capsule 12/11/17 Metoclopramide [Reglan] 5 mg PO TIDAC PRN #40 tablet 12/11/17 Famotidine [Pepcid] 20 mg PO BID #10 tablet 01/14/18 Allergies Allergy/AdvReac Type Severity Reaction Status Date / Time metformin Allergy Nausea Verified 01/14/18 13:35 Sulfa (Sulfonamide Allergy Nausea Verified 01/14/18 13:35 Antibiotics) sulfamethoxazole Allergy Nausea Verified 01/14/18 13:35 [From Bactrim] trimethoprim [From Bactrim] Allergy Nausea Verified 01/14/18 13:35 Past Medical History - Past Medical History Medical history: Reports: cancer, coronary artery disease, diabetes, hypertension, renal disease, other Surgical history: Reports: appendectomy, cholecystectomy, THERESE/BSO, other Psychiatric history: Reports: anxiety, depression DOPE WORKER history: Reports: no DOPE WORKER history - Social History Smoking Status: Never smoker Smokeless Tobacco Status: No Alcohol use: Reports: none Drug use: Reports: none Physical Exam - General Limitations: no limitations General appearance: alert, anxious Course Vital Signs Temperature 97.3 F L 01/15/18 21:38 Pulse Rate 88 01/15/18 21:38 Respiratory Rate 20 01/15/18 21:38 Blood Pressure 153/84 01/15/18 21:38 O2 Sat by Pulse Oximetry 96 01/15/18 21:38 Temperature 97.3 F L 01/15/18 21:38 Pulse Rate 75 01/15/18 23:51 Respiratory Rate 16 01/15/18 23:51 Blood Pressure 134/70 01/15/18 23:51 O2 Sat by Pulse Oximetry 97 01/15/18 23:51 Oxygen Delivery Oxygen Delivery Nasal Cannula Medical Decision Making - Lab Data Result diagrams: 01/15/18 22:31 01/15/18 22:31 Lab Results 01/15/18 01/15/18 01/15/18 Range/Units 22:06 22:31 22:31 WBC 12.4 H (4.3-11.1) K/mcL RBC 4.57 (3.82-4.97) M/mcL Hgb 13.5 (11.5-15.4) g/dL Hct 39.6 (35.3-44.9) % MCV 86.7 (83.0-100.0) fL MCH 29.5 (28.0-33.3) pg MCHC 34.1 (31.6-35.5) g/dL RDW 13.6 (11.5-14.5) % Plt Count 137 L (140-400) K/mcL MPV 11.2 (9.4-12.4) fL Immature Gran % 1.2 (0-4) % Seg Neutrophils % 39.8 % Lymphocytes % 54.4 % Monocytes % 3.6 % Eosinophils % 0.6 % Basophils % 0.4 % Neutrophils # 4.9 (1.6-8.9) K/mcL Lymphocytes # 6.8 H (0.6-4.6) K/mcL Monocytes # 0.5 (0.0-1.3) K/mcL Eosinophils # 0.1 (0.0-0.6) K/mcL Basophils # 0.1 (0.0-0.2) K/mcL Sodium 133 L (136-145) mEq/L Potassium 3.8 (3.5-5.1) mEq/L Chloride 103 (98-107) mEq/L Carbon Dioxide 22 L (23-29) mEq/L BUN 17 (8-23) mg/dL Creatinine 1.01 (0.60-1.20) mg/dL Est GFR ( Amer) > 60 (> 60) Est GFR (Non-Af Amer) 55 L (> 60) BUN/Creatinine Ratio 17 (6-26) Glucose 309 H (70-105) mg/dL Calculated Osmolality 289 (280-300) Calcium 9.3 (8.6-10.3) mg/dL Total Bilirubin 0.7 (0.3-1.0) mg/dL Direct Bilirubin 0.1 (0.0-0.2) mg/dL Indirect Bilirubin 0.6 (0.0-1.2) mg/dL AST 12 L (13-39) Units/L ALT 11 (7-52) Units/L Alkaline Phosphatase 101 (34-104) Units/L Troponin I < 0.03 (< 0.04) ng/mL Serum Total Protein 6.9 (6.4-8.9) g/dL Albumin 4.7 (3.5-5.7) g/dL Globulin 2.2 L (2.4-3.5) g/dL Albumin/Globulin Ratio 2.1 (1.1-2.2) Lipase 25 (11-82) Units/L Urine Color Yellow (Yellow) Urine Clarity Cloudy A (Clear) Urine pH 6.0 (5.0-8.0) pH Units Ur Specific Jones 1.023 (1.010-1.025) Urine Protein 30 H (Neg-Trace) mg/dL Urine Glucose (UA) Normal (Normal) mg/dL Urine Ketones Trace H (Negative) mg/dL Urine Blood Negative (Negative) Urine Nitrite Negative (Negative) Urine Bilirubin Negative (Negative) Urine Urobilinogen Normal (Normal) mg/dL Ur Leukocyte Esterase Moderate H (Negative) Urine Microscopic RBC 5-15 H (0-3) per hpf Urine Microscopic WBC TNTC H (0-3) per hpf Ur Squamous Epith Cells Many H (None-Few) per lpf Urine Bacteria None Seen (None-Few) per hpf Ur Culture Indicated? NO. A (NO) Attestation Statement - Attestation Attestation: I examined this patient and my medical decision-making was reviewed with the Resident Physician. I agree with the documented findings, disposition and treatment plan as described except to the extent set forth below. [id number] time provided Patient arrives complaining of persistent upper abdominal pain physician is chronic she states symptoms are similar. She sees GI and was diagnosed with gastroparesis. She is tearful and appears uncomfortable on exam. She was evaluated in conjunction with the resident physician
[2018-01-15] MEDS ORDERED: 0.9 % Sodium Chloride 1,000 ML IVC ONE (21:56)
[2018-01-15] MEDS ORDERED: Famotidine 20 MG/2 ML VIAL IVP ONE (21:58)
[2018-01-15] MEDS ORDERED: Haloperidol Lactate 5 MG/ML VIAL IVP ONE (21:58)
--- NOTE | 2018-01-15 22:00 | Emergency Department Note ---
Disposition Clinical Impression: Gastroparesis Abdominal pain Qualifiers: Abdominal location: unspecified location Qualified Code(s): R10.9 - Unspecified abdominal pain Nausea and vomiting Qualifiers: Vomiting type: unspecified Vomiting Intractability: non-intractable Qualified Code(s): R11.2 - Nausea with vomiting, unspecified Disposition: Admitted As Inpatient Condition: Fair Referrals: Mariaelena Vasquez, WIRE TRANSFER CLERK [Primary Care Provider] - Forms: ED Satisfaction Letter, Work/School Release Time of Disposition: 23:27 Abdominal Pain HPI - General Chief Complaint: ED Abdominal Pain Stated Complaint: ABD Pain / N/V Time Seen by Provider: 01/15/18 21:42 Source: patient Mode of arrival: ambulatory Limitations: no limitations Nursing Notes Reviewed: Yes Vital Signs Reviewed: Yes - History of Present Illness HPI Narrative: 67-year-old female with a history of diabetes and gastroparesis presents for evaluation of abdominal pain, nausea vomiting. Patient states symptom onset has been since Thursday. Patient states that this is her fourth ED visit within the past week. Notes pain is primarily in the epigastrium. Notes nausea and vomiting. States she has been on Reglan at home. Patient states that she spoke with her GI doctor earlier today and was told to come to the ED for admission. Denies any fevers, chest pain or cough. Denies any diarrhea or constipation. Patient does have history of CLL and chronic kidney disease. Daughter provided the additional history stating that this happens approximately once a month. Patient does follow with Dr. Peñaloza Pain Scale: 10 - Related Data Home Medications Medication Instructions Recorded Confirmed Aspirin 81 mg PO DAILY 04/05/15 12/06/17 Topiramate [Topamax] 25 mg PO BID 08/23/15 12/06/17 Primidone [Mysoline] 50 mg PO HS 02/28/16 12/06/17 Ascorbic Acid [Vitamin C] 500 mg PO DAILY 03/06/16 12/06/17 Ferrous Sulfate [Iron] 325 mg PO DAILY 03/06/16 12/06/17 Fluticasone Propionate Nasal 100 mcg NS DAILY 11/26/16 12/06/17 [Flonase] Insulin Glargine/Lixisenatide 60 unit SQ HS 11/26/16 12/06/17 [Soliqua 100 Unit-33 Mcg/ml Pen] Tramadol HCl [Ultram] 50 mg PO TID 11/26/16 12/06/17 Cyanocobalamin (Vitamin B-12) 500 mcg PO DAILY 05/06/17 12/06/17 [Vitamin B-12] Linagliptin [Tradjenta] 5 mg PO DAILY 05/06/17 12/06/17 Loratadine [Claritin] 10 mg PO DAILY 05/06/17 12/06/17 Metoprolol XL (24 HR) Succ [Toprol 25 mg PO DAILY 05/06/17 12/06/17 Xl] Pioglitazone [Actos] 15 mg PO DAILY 05/06/17 12/06/17 Pregabalin [Lyrica] 100 mg PO TID 05/06/17 12/06/17 Sucralfate [Carafate] 1 gm PO QID 05/06/17 12/06/17 Omeprazole [PriLOSEC] 40 mg PO DAILY 11/05/17 12/06/17 Atorvastatin [Lipitor] 40 mg PO HS 12/06/17 12/06/17 Ergocalciferol (VITAMIN D2) 50,000 unit PO WE 12/06/17 12/06/17 [Vitamin D2] Insulin Regular Human [Humulin R] 0 - 10 units SQ TIDWM 12/06/17 12/06/17 Morphine Oral CONC [Roxanol] 0.25 ml PO Q4H PRN 12/06/17 12/08/17 raNITIdine HCl [Zantac] 150 mg PO DAILY 12/06/17 12/06/17 Previous Rx's Medication Instructions Recorded Folic Acid 1 mg PO DAILY #30 tablet 09/18/15 Acetaminophen [Tylenol] 650 mg PO Q6HR PRN tablet 07/10/17 Albuterol Neb [Proventil Neb] 2.5 mg IH Q4H PRN #1 inhsol 09/22/17 Docusate [Colace] 100 mg PO DAILY #30 capsule 11/11/17 Doxepin [Sinequan] 25 mg PO HS #30 capsule 12/11/17 Metoclopramide [Reglan] 5 mg PO TIDAC PRN #40 tablet 12/11/17 Famotidine [Pepcid] 20 mg PO BID #10 tablet 01/14/18 Allergies Allergy/AdvReac Type Severity Reaction Status Date / Time metformin Allergy Nausea Verified 01/14/18 13:35 Sulfa (Sulfonamide Allergy Nausea Verified 01/14/18 13:35 Antibiotics) sulfamethoxazole Allergy Nausea Verified 01/14/18 13:35 [From Bactrim] trimethoprim [From Bactrim] Allergy Nausea Verified 01/14/18 13:35 All systems ED: reviewed and negative except as stated. Constitutional: Denies: fever Cardiovascular: Denies: chest pain Respiratory: Denies: cough, dyspnea Gastrointestinal: Reports: abdominal pain, nausea, vomiting Abdominal Pain PMH - Past Medical History Medical history: Reports: cancer, coronary artery disease, diabetes, hypertension, renal disease, other Female Surgical History: Reports: appendectomy, cholecystectomy SECURITY ALARM INSTALLER history: Reports: no SECURITY ALARM INSTALLER history Psychiatric history: Reports: anxiety, depression - Social History Smoking status: Never smoker Alcohol use: Reports: none Drug use: Reports: none Physical Exam - General Limitations: no limitations General appearance: alert, anxious - Head Head exam: atraumatic, normocephalic, normal inspection - Eye Eye exam: Present: normal appearance, EOMI - ENT ENT exam: normal exam, mucous membranes moist - Neck Neck exam: Present: normal inspection - Chest Chest inspection: Present: normal inspection, symmetric chest wall rise - Respiratory Respiratory exam: Present: normal lung sounds bilaterally. Absent: respiratory distress - Cardiovascular Cardiovascular exam: Present: regular rate, normal rhythm. Absent: systolic murmur - Abdominal Exam Abdominal exam: Present: soft, tenderness. Absent: guarding, rebound - Extremities Exam Extremities exam: Present: normal inspection. Absent: pedal edema - Expanded Lower Extremity Exam Neurovascular/Tendon exam: Present: normal capillary refill - Back Exam Back exam: Present: normal inspection - Neurological Exam Neurological exam: Present: alert, CN II-XII intact - Skin Skin exam: Present: warm, dry, intact, normal color Course Course Narrative: Patient seen and examined. Patient's records reviewed. Patient was evaluated in the emergency department the past couple days. Patient will get basic labs since met. IV fluids antiemetics. Patient also get a CT scan and likely disposition to admission. - Reevaluation(s) Reevaluation #1: Patient is resting comfortably. Repeat abdominal exam is unremarkable. Time: 23:09 Reevaluation #2: Patient seen and examined. Updated on plan of care. Family at bedside agree. Time: 23:37 Vital Signs Temperature 97.3 F L 01/15/18 21:38 Pulse Rate 88 01/15/18 21:38 Respiratory Rate 20 01/15/18 21:38 Blood Pressure 153/84 01/15/18 21:38 O2 Sat by Pulse Oximetry 96 01/15/18 21:38 Temperature 97.3 F L 01/15/18 21:38 Pulse Rate 88 01/15/18 21:38 Respiratory Rate 20 01/15/18 21:38 Blood Pressure 153/84 01/15/18 21:38 O2 Sat by Pulse Oximetry 96 01/15/18 21:38 Oxygen Delivery Oxygen Delivery Room Air Abdominal Pain - MDM Narrative Medical decision making narrative: Patient had a CT scan at [facility] ([place] earlier today with those results reviewed. Shows no acute inflammatory process within the abdomen or pelvis. Noted to have enlarged abdominal pelvic lymphadenopathy from 2012. Patient does have a indeterminate circumscribed right breast nodule. Patient has had her gallbladder and her uterus removed. Given those findings the patient did not get a repeat CT scan during this ED course. Patient is treated with varying degrees of anti-emetics. Patient was fluid hydrated. Basic labs were obtained. Given the fact this is the patient's third ED visit at [place] fourth ED visit total the past week the patient will be admitted for intractable nausea vomiting and abdominal pain. Patient's urine collected show signs of examination. At this point will not treat. Patient was given Haldol IV fluids. And patient's resting comfortably. - Lab Data Lab results reviewed: Yes I reviewed the patient's lab results. Result diagrams: 01/15/18 22:31 01/15/18 22:31 Lab Results 01/15/18 01/15/18 01/15/18 Range/Units 22:06 22:31 22:31 WBC 12.4 H (4.3-11.1) K/mcL RBC 4.57 (3.82-4.97) M/mcL Hgb 13.5 (11.5-15.4) g/dL Hct 39.6 (35.3-44.9) % MCV 86.7 (83.0-100.0) fL MCH 29.5 (28.0-33.3) pg MCHC 34.1 (31.6-35.5) g/dL RDW 13.6 (11.5-14.5) % Plt Count 137 L (140-400) K/mcL MPV 11.2 (9.4-12.4) fL Immature Gran % 1.2 (0-4) % Seg Neutrophils % 39.8 % Lymphocytes % 54.4 % Monocytes % 3.6 % Eosinophils % 0.6 % Basophils % 0.4 % Neutrophils # 4.9 (1.6-8.9) K/mcL Lymphocytes # 6.8 H (0.6-4.6) K/mcL Monocytes # 0.5 (0.0-1.3) K/mcL Eosinophils # 0.1 (0.0-0.6) K/mcL Basophils # 0.1 (0.0-0.2) K/mcL Sodium 133 L (136-145) mEq/L Potassium 3.8 (3.5-5.1) mEq/L Chloride 103 (98-107) mEq/L Carbon Dioxide 22 L (23-29) mEq/L BUN 17 (8-23) mg/dL Creatinine 1.01 (0.60-1.20) mg/dL Est GFR ( Amer) > 60 (> 60) Est GFR (Non-Af Amer) 55 L (> 60) BUN/Creatinine Ratio 17 (6-26) Glucose 309 H (70-105) mg/dL Calculated Osmolality 289 (280-300) Calcium 9.3 (8.6-10.3) mg/dL Total Bilirubin 0.7 (0.3-1.0) mg/dL Direct Bilirubin 0.1 (0.0-0.2) mg/dL Indirect Bilirubin 0.6 (0.0-1.2) mg/dL AST 12 L (13-39) Units/L ALT 11 (7-52) Units/L Alkaline Phosphatase 101 (34-104) Units/L Troponin I < 0.03 (< 0.04) ng/mL Serum Total Protein 6.9 (6.4-8.9) g/dL Albumin 4.7 (3.5-5.7) g/dL Globulin 2.2 L (2.4-3.5) g/dL Albumin/Globulin Ratio 2.1 (1.1-2.2) Lipase 25 (11-82) Units/L Urine Color Yellow (Yellow) Urine Clarity Cloudy A (Clear) Urine pH 6.0 (5.0-8.0) pH Units Ur Specific [place] 1.023 (1.010-1.025) Urine Protein 30 H (Neg-Trace) mg/dL Urine Glucose (UA) Normal (Normal) mg/dL Urine Ketones Trace H (Negative) mg/dL Urine Blood Negative (Negative) Urine Nitrite Negative (Negative) Urine Bilirubin Negative (Negative) Urine Urobilinogen Normal (Normal) mg/dL Ur Leukocyte Esterase Moderate H (Negative) Urine Microscopic RBC 5-15 H (0-3) per hpf Urine Microscopic WBC TNTC H (0-3) per hpf Ur Squamous Epith Cells Many H (None-Few) per lpf Urine Bacteria None Seen (None-Few) per hpf Ur Culture Indicated? NO. A (NO) - EKG Data EKG attestation: Yes I reviewed and interpreted this EKG. EKG shows normal: sinus rhythm Rate: normal Rhythm: NSR [place]/QRS: normal Q waves: v1, v2 Interpretation: no acute changes, nonspecific ST-T wave changes S.B.Janna - TaylorAZoila Situation: Demographics Background: Presenting Complaint Assessment: Vital Signs, Course and respsone to treatment, Patient/Family Expectation Recommendation: Barrier(s) to disposition, Recommendation based on pending studies, treatments, or consults S.B.A.RTashia Report Given to: Dr. Morgan HurstBTashiaAZoila Repor Time: 23:36
[2018-01-15 22:23] LABS: Bilirubin,Urine Negative (Negative); Blood,Urine Negative (Negative); Clarity,Urine Cloudy (Clear); Color,Urine Yellow (Yellow); Glucose,Urine (UA) Normal (Normal); Ketones,Urine Trace mg/dL (Negative); Leukocyte Esterase,Urine Moderate (Negative); Nitrite,Urine Negative (Negative); Protein,Urine 30 mg/dL (Neg-Trace); Specific Gravity,Urine 1.023 (1.010-1.025); Urobilinogen,Urine Normal (Normal)
[2018-01-15 22:26] LABS: Bacteria,Urine None Seen per hpf (None-Few); Squamous Epithelial Cell,Urine Many per lpf (None-Few); WBC,Urine TNTC per hpf (0-3)
[2018-01-15 22:45] LABS: Basophils # 0.1 K/mcL (0.0-0.2); Basophils % 0.4 %; Eosinophils # 0.1 K/mcL (0.0-0.6); Eosinophils % 0.6 %; Hematocrit 39.6 % (35.3-44.9); Hemoglobin 13.5 g/dL (11.5-15.4); Immature Granulocytes % 1.2 % (0-4); Lymphocytes # 6.8 K/mcL (0.6-4.6); Lymphocytes % 54.4 %; Mean Corpuscular HGB Conc 34.1 g/dL (31.6-35.5); Mean Corpuscular Hemoglobin 29.5 pg (28.0-33.3); Mean Corpuscular Volume 86.7 fL (83.0-100.0); Mean Platelet Volume 11.2 fL (9.4-12.4); Monocytes # 0.5 K/mcL (0.0-1.3); Monocytes % 3.6 %; Neutrophils # 4.9 K/mcL (1.6-8.9); Platelet Count 137 K/mcL (140-400); Red Blood Count 4.57 M/mcL (3.82-4.97); Red Cell Distribution Width 13.6 % (11.5-14.5); Segmented Neutrophils % 39.8 %
[2018-01-15] MEDS ORDERED: Metoclopramide 10 MG/2 ML VIAL IVP ONE (23:09)
[2018-01-15 23:17] LABS: Alanine Aminotransferase 11 Units/L (7-52); Albumin 4.7 g/dL (3.5-5.7); Albumin/Globulin Ratio 2.1 (1.1-2.2); Alkaline Phosphatase 101 Units/L (34-104); Aspartate Amino Transferase 12 Units/L (13-39); BUN/Creatinine Ratio 17 (6-26); Bilirubin,Direct 0.1 mg/dL (0.0-0.2); Bilirubin,Indirect 0.6 mg/dL (0.0-1.2); Bilirubin,Total 0.7 mg/dL (0.3-1.0); Blood Urea Nitrogen 17 mg/dL (8-23); Calcium 9.3 mg/dL (8.6-10.3); Carbon Dioxide 22 mEq/L (23-29); Chloride 103 mEq/L (98-107); Globulin 2.2 g/dL (2.4-3.5); Glucose 309 mg/dL (70-105); Lipase 25 Units/L (11-82); Osmolality,Calculated 289 (280-300); Potassium 3.8 mEq/L (3.5-5.1); Sodium 133 mEq/L (136-145); Total Protein 6.9 g/dL (6.4-8.9); Troponin I < 0.03 ng/mL (< 0.04); eGFR For Non-African Americans 55 (> 60)
[2018-01-16] MEDS ORDERED: Naloxone 0.4 MG/ML INJ IVP PRN ×2 (00:50)
[2018-01-16] MEDS ORDERED: Metoclopramide 10 MG/2 ML VIAL IVP PRN (00:52)
[2018-01-16] MEDS ORDERED: D5% in Water 1,000 ML IVC PRN (00:53)
[2018-01-16] MEDS ORDERED: *HR* Dextrose 50 % in Water (Syg) 50 ML SYRINGE IVP PRN (00:53)
[2018-01-16] MEDS ORDERED: Dextrose Gel 15 GM/37.5 ML TUBE PO PRN ×2 (00:53)
[2018-01-16] MEDS ORDERED: Albuterol 2.5 MG/3 ML NEBULIZER IH PRN (00:56)
[2018-01-16] MEDS ORDERED: D5% in Water 1,000 ML IVC SCH (01:00)
--- NOTE | 2018-01-16 01:10 | Internal Med History&Physical ---
<Galdino Null - Last Filed: 01/16/18 01:21> Date of Encounter: 01/16/18 Time of Encounter: 01:00 Internal Medicine - H&P: HPI Chief complaint: nausea, vomiting, abdominal pain Admitted From: Emergency Dept Plans for Post Hospital Care: Home History of present illness: Ms. Vargas is a 67 year old female with past medical history diabetes, CAD, hypertension, stage III chronic kidney disease, CLL, anxiety, depression presented emergency department with complaint of abdominal pain, nausea, vomiting. She is notably very familiar with this hospital and was recently admitted at the end of November of this year for the same concerns. At that time, gastroenterology service was consulted and suspected that her symptoms were most likely secondary to known history of gastroparesis. She did have an EGD on 12/10/17 which showed grade a esophagitis, small hiatal hernia, mild edema and gastroparesis. On this episode, she states that her epigastric pain has been present since Thursday and is located in the epigastric region without radiation. She describes as sharp in nature without exacerbating or relieving factors. Denies any changes in her bowel movements including diarrhea, hematochezia. She states that her nausea and vomiting are pretty much constant and denies exacerbation with meals. She states she has had a somewhat decreased appetite in this time. She describes the vomiting as constant and produces white/clear emesis without evidence of blood. Has chronic numbness and tingling secondary to neuropathy. Denies fevers or chills. In the emergency room, vital signs were unremarkable. Lab results significant for mild WBC elevation of 12.4 and a glucose of 300. Lipase within normal limits. Most recent A1c of 7.3% on 11/05/17. She did have a CT scan in [facility] her earlier in the morning and it showed no acute findings and splenomegaly consistent with known history of CLL. Previous medical history as above Past surgical history including appendectomy and cholecystectomy Social history includes never smoker, denies alcohol use, denies drug use Past Med Surg Social Fam HX - Past Medical History Medical history: cancer, coronary artery disease, diabetes, hypertension, renal disease Additional medical history: CLL Psychiatric history: anxiety, depression - Past Surgical History Surgical History: appendectomy, cholecystectomy, knee replacement, THERESE/BSO Additional surgical history: Left total knee replacement - Social History Smoking Status: Never smoker Smokeless Tobacco Status: No Alcohol use: none Drug use: none - Family History Mother Family Member Ethnicity: Non- Living Status: Hx Family Cardiac Disorders: No Hx Family Respiratory Disorders: No Hx Family Cancer: No Hx Family GI Disorders: No Hx Family Endocrine Disorder: Yes (DM) Hx Family Neuromuscular Disorders: No Hx Family Neurologic Disorders: No Hx Family HEENT Disorders: No Hx Family Autoimmune Disorders: No Father Adopted: No Family Member Ethnicity: Non- Living Status: Hx Family Cardiac Disorders: Yes (CA) Hx Family Respiratory Disorders: No Hx Family Cancer: No Hx Family GI Disorders: No Hx Family Endocrine Disorder: No Hx Family Neuromuscular Disorders: No Hx Family Neurologic Disorders: No Hx Family HEENT Disorders: No Hx Family Autoimmune Disorders: No Internal Medicine - H&P: Meds Aspirin 81 mg PO DAILY 04/05/15 [History] Topiramate [Topamax] 25 mg PO BID 08/23/15 [History] Folic Acid 1 mg PO DAILY #30 tablet 09/18/15 [Rx] Primidone [Mysoline] 50 mg PO HS 02/28/16 [History] Ascorbic Acid [Vitamin C] 500 mg PO DAILY 03/06/16 [History] Ferrous Sulfate [Iron] 325 mg PO DAILY 03/06/16 [History] Fluticasone Propionate Nasal [Flonase] 100 mcg NS DAILY 11/26/16 [History] Insulin Glargine/Lixisenatide [Soliqua 100 Unit-33 Mcg/ml Pen] 60 unit SQ HS [History] Tramadol HCl [Ultram] 50 mg PO TID 11/26/16 [History] Cyanocobalamin (Vitamin B-12) [Vitamin B-12] 500 mcg PO DAILY 05/06/17 [History] Linagliptin [Tradjenta] 5 mg PO DAILY 05/06/17 [History] Loratadine [Claritin] 10 mg PO DAILY 05/06/17 [History] Metoprolol XL (24 HR) Succ [Toprol Xl] 25 mg PO DAILY 05/06/17 [History] Pioglitazone [Actos] 15 mg PO DAILY 05/06/17 [History] Pregabalin [Lyrica] 100 mg PO TID 05/06/17 [History] Sucralfate [Carafate] 1 gm PO QID 05/06/17 [History] Acetaminophen [Tylenol] 650 mg PO Q6HR PRN tablet 07/10/17 [Rx] Albuterol Neb [Proventil Neb] 2.5 mg IH Q4H PRN #1 inhsol 09/22/17 [Rx] Omeprazole [PriLOSEC] 40 mg PO DAILY 11/05/17 [History] Docusate [Colace] 100 mg PO DAILY #30 capsule 11/11/17 [Rx] Atorvastatin [Lipitor] 40 mg PO HS 12/06/17 [History] Ergocalciferol (VITAMIN D2) [Vitamin D2] 50,000 unit PO WE 12/06/17 [History] Insulin Regular Human [Humulin R] 0 - 10 units SQ TIDWM 12/06/17 [History] Morphine Oral CONC [Roxanol] 0.25 ml PO Q4H PRN 12/06/17 [History] raNITIdine HCl [Zantac] 150 mg PO DAILY 12/06/17 [History] Doxepin [Sinequan] 25 mg PO HS #30 capsule 12/11/17 [Rx] Metoclopramide [Reglan] 5 mg PO TIDAC PRN #40 tablet 12/11/17 [Rx] Famotidine [Pepcid] 20 mg PO BID #10 tablet 01/14/18 [Rx] 3 Allergy/AdvReac Type Severity Reaction Status Date / Time metformin Allergy Nausea Verified 01/14/18 13:35 Sulfa (Sulfonamide Allergy Nausea Verified 01/14/18 13:35 Antibiotics) sulfamethoxazole Allergy Nausea Verified 01/14/18 13:35 [From Bactrim] trimethoprim [From Bactrim] Allergy Nausea Verified 01/14/18 13:35 All Systems PM: A 10-system review of systems was performed and is negative for pertinent findings except as documented above in the HPI. - Constitutional Constitutional: no chills, no fever(s), no lethargy, no malaise, no weakness - Cardiovascular Cardiovascular ROS IM: no chest pain, no dyspnea, no dyspnea on exertion, no edema, no orthopnea, no syncope - Respiratory Respiratory: no cough, no dyspnea, no dyspnea on exertion, no wheezing - Gastrointestinal Gastrointestinal: abdominal pain, nausea, vomiting, no bloating, no change in bowel habits, no coffee ground emesis, no constipation, no cramping, no diarrhea , no dyspepsia, no hematemesis, no hematochezia, no loose stools, no melena - Neurological Neurological ROS: no numbness, no tingling, no weakness - Constitutional Vitals: Temp Pulse Resp BP Pulse Ox 98.4 F 80 16 149/85 94 01/16/18 00:35 01/16/18 00:35 01/16/18 00:35 01/16/18 00:35 01/16/18 00:35 Exam: Gen.: Vitals noted. No acute distress. AAOx3. Resting comfortably in bed HEENT: PERRL/EOMI, oropharynx clear, Normocephalic, atraumatic, mildly dry mucous membranes Cardiac: RRR, no murmur, +S1/S2 Pulmonary: CTA bilaterally, no wheezes, rales or rhonchi, equal chest expansion Abdomen: soft, mildly tender to palpation in epigastric and suprapubic region, BS noted, no guarding MSK: ROM intact, no joint swelling noted Extremities: no BLE edema, nontender calf, no cyanosis or clubbing Neuro: A&Ox3, moves all extremities, no focal deficits Psych: Appropriate mood and behavior Internal Med - H&P Results - Labs CBC & Chem 7: 01/15/18 22:31 01/15/18 22:31 - Assessment and plan (1) Gastroparesis Current Visit: Yes Status: Chronic Assessment and plan: Chronic gastroparesis with multiple hospital admissions Patient reports improvement of symptoms with Haldol in emergency department Currently asymptomatic Most recent EGD on 12/10/17 shows grade esophagitis, 2 cm hiatal hernia, mild edema, gastroparesis Blood sugar 300 on presentation Gastroenterology consultation on last visit recommended decreasing opioid dependence as this may exacerbate symptoms. Patient states she is still taking pain medications for back and knee pain. Plan Nothing by mouth Fluid resuscitation with D5W at 100 mL per hour Consult to gastroenterology, appreciate recommendations Reglan 10 mg every 6 hours Zofran when necessary (2) Type 2 diabetes mellitus Current Visit: Yes Status: Chronic Assessment and plan: Type 2 diabetes, insulin-dependent Most recent A1c of 7.3% on 11/05/17 Complication of kidney disease as well as gastroparesis Blood sugar 300 on presentation We will give 15 units of basal insulin this evening, D5W while nothing by mouth , sliding scale insulin Qualifiers: Diabetes mellitus shelter insulin use: with shelter use Diabetes mellitus complication status: with hyperglycemia Qualified Code(s): E11.65 - Type 2 diabetes mellitus with hyperglycemia; Z79.4 - terminal superintendent (current) use of insulin (3) CAD (coronary artery disease) Current Visit: Yes Status: Chronic Assessment and plan: Not in acute exacerbation, no chest pain Continue home medications Qualifiers: Coronary Disease-Associated Artery/Lesion type: [place] artery [place] vs. transplanted heart: [place] heart Associated angina: without angina Qualified Code(s): I25.10 - Atherosclerotic heart disease of [place] coronary artery without angina pectoris (4) Nausea & vomiting Current Visit: Yes Status: Acute Assessment and plan: Likely secondary to gastroparesis as above Qualifiers: Vomiting type: unspecified Vomiting Intractability: non-intractable Qualified Code(s): R11.2 - Nausea with vomiting, unspecified (5) Obesity (BMI 30-39.9) Current Visit: Yes Status: Chronic (6) Leukocytosis Current Visit: Yes Status: Acute Assessment and plan: WBC elevation mild of 12.4 on presentation Suspect that she is likely hemoconcentrated secondary to nausea, vomiting, decreased fluid intake Unlikely infectious etiology Also has a known history of CLL Qualifiers: Leukocytosis type: unspecified Qualified Code(s): D72.829 - Elevated white blood cell count, unspecified (7) DVT prophylaxis Current Visit: No Status: Acute Assessment and plan: Heparin 5000 units every 8 hours (8) Abdominal pain Current Visit: Yes Status: Acute Assessment and plan: Likely secondary to gastroparesis as above We will give supportive care and treat underlying conditions Qualifiers: Abdominal location: epigastric Qualified Code(s): R10.13 - Epigastric pain - Time Spent With Patient Total time spent is greater than 50% in coordination of care (as documented) at patient's floor/unit and/or counseling patient: <Luciana Mora - Last Filed: 01/16/18 05:30> Date of Encounter: 01/16/18 Internal Medicine - H&P: HPI History of present illness: Ms. Vargas is a 67 year old female All Systems PM: A 10-system review of systems was performed and is negative for pertinent findings except as documented above in the HPI. - Constitutional Vitals: Temp Pulse Resp BP Pulse Ox 98.3 F 91 17 129/75 94 01/16/18 03:30 01/16/18 03:30 01/16/18 03:30 01/16/18 03:30 01/16/18 03:30 Internal Med - H&P Results - Labs CBC & Chem 7: 01/15/18 22:31 01/15/18 22:31 - Attending Attestation seen and assessed. Agree with plan per resident. Continue management for acute on chronic gastroparesis - Assessment and plan (1) Type 2 diabetes mellitus Current Visit: Yes Status: Chronic Qualifiers: Diabetes mellitus shelter insulin use: with shelter use Diabetes mellitus complication status: with hyperglycemia Qualified Code(s): E11.65 - Type 2 diabetes mellitus with hyperglycemia; Z79.4 - half-way (current) use of insulin (2) CAD (coronary artery disease) Current Visit: Yes Status: Chronic Qualifiers: Coronary Disease-Associated Artery/Lesion type: [place] artery [place] vs. transplanted heart: [place] heart Associated angina: without angina Qualified Code(s): I25.10 - Atherosclerotic heart disease of [place] coronary artery without angina pectoris (3) Nausea & vomiting Current Visit: Yes Status: Acute Qualifiers: Vomiting type: unspecified Vomiting Intractability: non-intractable Qualified Code(s): R11.2 - Nausea with vomiting, unspecified (4) Obesity (BMI 30-39.9) Current Visit: Yes Status: Chronic (5) Gastroparesis Current Visit: Yes Status: Chronic (6) Leukocytosis Current Visit: Yes Status: Acute Qualifiers: Leukocytosis type: unspecified Qualified Code(s): D72.829 - Elevated white blood cell count, unspecified (7) DVT prophylaxis Current Visit: No Status: Acute (8) Abdominal pain Current Visit: Yes Status: Acute Qualifiers: Abdominal location: epigastric Qualified Code(s): R10.13 - Epigastric pain - Time Spent With Patient Total time spent is greater than 50% in coordination of care (as documented) at patient's floor/unit and/or counseling patient:
[2018-01-16] MEDS: OXYCODONE Oral CONC 10 MG/0.5 ML ORAL.SYG SL PRN ×2 (01:26→05:41)
[2018-01-16] MEDS: Insulin DETEMIR 100 UNIT/ML X5UNITS SQ SCH ×2 (01:49→21:53)
[2018-01-16] MEDS: *HR* Heparin 5,000 UNIT/ML VIAL SQ SCH ×3 (05:41→21:53)
[2018-01-16] MEDS: Insulin LISPRO 300 UNITS/3 ML VIAL SQ SCH ×3 (05:42→18:10)
[2018-01-16] MEDS ORDERED: Famotidine 20 MG TABLET PO SCH ×2 (09:00)
[2018-01-16] MEDS: Pantoprazole 40 MG VIAL IVP SCH (09:36)
[2018-01-16] MEDS: Ondansetron 4 MG/2 ML VIAL IVP PRN ×2 (09:36→18:27)
[2018-01-16] MEDS: Ringers Solution, Lactated 1,000 ML IVC SCH ×2 (09:36→21:51)
--- NOTE | 2018-01-16 09:51 | Internal Med Progress Note ---
<Navdeep Collado - Last Filed: 01/16/18 12:12> Hospitalist Progress Note - Encounter Date of Encounter: 01/16/18 Time of Encounter: 09:50 - Subjective Interval History: Patient was seen and examined at bedside this morning. She is complaining of abdominal pain. She states that her symptoms are similar to the symptoms that she experienced in November. No exacerbating or relieving factors. She denies having any nausea, vomiting, fever, or chills. Denies having any changes in her bowel movements. - Exam Vitals: Temp Pulse Resp BP Pulse Ox 98.2 F 79 15 152/85 96 01/16/18 06:35 01/16/18 06:35 01/16/18 06:35 01/16/18 06:35 01/16/18 06:35 Exam: General: Patient is in moderate distress; complains of abdominal pain HEENT: PERRL/EOMI, oropharynx clear, Normocephalic, atraumatic, mildly dry mucous membranes Cardiac: Regular rate and rhythm, S1 and S2, no murmurs, rubs, or gallops Pulmonary: Clear to auscultation bilaterally, no wheezes rales or rhonchi Abdomen: Soft, mildly tender to palpation in the epigastric region MSK: ROM intact, no joint swelling noted Extremities: no BLE edema, nontender calf, no cyanosis or clubbing - Assessment and Plan (1) Gastroparesis Current Visit: Yes Status: Chronic Assessment and Plan: Patient is a known history of chronic gastroparesis; multiple hospital admissions in the past - Was given Haldol in the emergency department; improvement of symptoms - EGD on 12/10/17 shows grade esophagitis, 2 cm hiatal hernia, mild edema, gastroparesis Plan - NPO, Fluid resuscitation with D5W at 100 mL per hour - Consult to GI, appreciate recommendations - Reglan 10 mg every 6 hours - Zofran when necessary - Hold pain medication for the time being due to risk of worsening gastroparesis - Will obtain CT scan of the abdomen (2) Type 2 diabetes mellitus Current Visit: Yes Status: Chronic Assessment and Plan: Type 2 diabetes, insulin-dependent - Most recent A1c of 7.3% on 11/05/17 - Blood sugar 300 on presentation - SSI (3) CAD (coronary artery disease) Current Visit: Yes Status: Chronic Assessment and Plan: - Not in acute exacerbation, no chest pain - Continue home medications (4) Nausea & vomiting Current Visit: Yes Status: Acute Assessment and Plan: - Likely secondary to gastroparesis as above (5) DVT prophylaxis Current Visit: No Status: Acute Assessment and Plan: - Heparin 5000 units every 8 hours (6) Abdominal pain Current Visit: Yes Status: Acute - Time Spent with Patient Total time spent is greater than 50% in coordination of care (as documented) at patient's floor/unit and/or counseling patient: Internal Medicine: Result - Labs CBC & Chem 7: 01/15/18 22:31 01/15/18 22:31 Consult Discharge Plan - Plan Referrals: Mariaelena Vasquez [facility] INSTALLER [Primary Care Provider] - <Deven Car - Last Filed: 01/16/18 18:19> Hospitalist Progress Note - Encounter Date of Encounter: 01/16/18 - Exam Vitals: Temp Pulse Resp BP Pulse Ox 98.5 F 87 16 157/82 91 01/16/18 14:03 01/16/18 14:03 01/16/18 14:03 01/16/18 14:03 01/16/18 14:03 - Assessment and Plan (1) Nausea & vomiting Current Visit: Yes Status: Acute (2) Type 2 diabetes mellitus Current Visit: Yes Status: Chronic (3) CAD (coronary artery disease) Current Visit: Yes Status: Chronic (4) Gastroparesis Current Visit: Yes Status: Chronic (5) DVT prophylaxis Current Visit: No Status: Acute (6) Abdominal pain Current Visit: Yes Status: Acute - Summary of Assessment and Plan Summary of Assessment and Plan: I examined this patient and my medical decision-making was reviewed with the Resident Physician. I agree with the documented findings, disposition and treatment plan as described except to the extent set forth below. - Time Spent with Patient Total time spent is greater than 50% in coordination of care (as documented) at patient's floor/unit and/or counseling patient: Internal Medicine: Result - Labs CBC & Chem 7: 01/15/18 22:31 01/15/18 22:31 - Impressions Impressions Abdomen/Pelvis CT 01/16/18 11:58 IMPRESSION: 1. No acute findings in the abdomen or pelvis. 2. Similar appearance of right intramammary, abdominal, and pelvic lymphadenopathy as well as splenomegaly likely related to the patient's reported chronic lymphocytic leukemia. D/ / Sony Carroll MD / Sony Carroll MD Interpreting Provider: Sony Carroll MD <Navdeep Collado - Last Filed: 01/16/18 12:12> (2) Type 2 diabetes mellitus Qualifiers: Diabetes mellitus [facility] insulin use: with [facility] use Diabetes mellitus complication status: with hyperglycemia Qualified Code(s): E11.65 - Type 2 diabetes mellitus with hyperglycemia; Z79.4 - [facility] (current) use of insulin (3) CAD (coronary artery disease) Qualifiers: Coronary Disease-Associated Artery/Lesion type: [place] artery [place] vs. transplanted heart: [place] heart Associated angina: without angina Qualified Code(s): I25.10 - Atherosclerotic heart disease of [place] coronary artery without angina pectoris (4) Nausea & vomiting Qualifiers: Vomiting type: unspecified Vomiting Intractability: non-intractable Qualified Code(s): R11.2 - Nausea with vomiting, unspecified (6) Abdominal pain Qualifiers: Abdominal location: epigastric Qualified Code(s): R10.13 - Epigastric pain <Ghanem,Concepcion Rheem - Last Filed: 01/16/18 18:19> (1) Nausea & vomiting Qualifiers: Vomiting type: unspecified Vomiting Intractability: non-intractable Qualified Code(s): R11.2 - Nausea with vomiting, unspecified (2) Type 2 diabetes mellitus Qualifiers: Diabetes mellitus [facility] insulin 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 transplanted heart: [place] heart Associated angina: without angina Qualified Code(s): I25.10 - Atherosclerotic heart disease of [place] coronary artery without angina pectoris (6) Abdominal pain Qualifiers: Abdominal location: epigastric Qualified Code(s): R10.13 - Epigastric pain
[2018-01-16] MEDS: Folic Acid 1 MG TABLET PO SCH (10:30)
[2018-01-16] MEDS: Aspirin 81 MG TAB.CHEW PO SCH (10:30)
[2018-01-16] MEDS: Pregabalin 50 MG CAPSULE PO SCH ×3 (10:30→21:52)
[2018-01-16] MEDS: Topiramate 25 MG TABLET PO SCH ×2 (10:30→21:52)
[2018-01-16] MEDS: Metoprolol XL (24 HR) Succ 25 MG TAB.ER.24H PO SCH (10:31)
[2018-01-16] MEDS ORDERED: Isovue-370 500 ML INFUS..BTL IV ONE (11:58)
[2018-01-16] MEDS ORDERED: Insulin Human Regular 10 UNIT in 0.9 % Sodium Chloride 10 ML IV ONE (11:59)
[2018-01-16] MEDS ORDERED: Acetaminophen IV 500 MG/50 ML INFUS..BTL IVPB ONE (20:15)
[2018-01-16] MEDS ORDERED: *HR* Promethazine 25 MG/ML VIAL IVP PRN (20:16)
[2018-01-16] MEDS: Primidone 50 MG TABLET PO SCH (21:52)
[2018-01-17] MEDS: Insulin LISPRO 300 UNITS/3 ML VIAL SQ SCH ×4 (00:40→17:26)
[2018-01-17 04:47] LABS: Basophils % 0.5 %; Eosinophils # 0.1 K/mcL (0.0-0.6); Eosinophils % 0.7 %; Hematocrit 32.7 % (35.3-44.9); Immature Granulocytes % 0.8 % (0-4); Lymphocytes % 58.7 %; Mean Corpuscular Hemoglobin 28.3 pg (28.0-33.3); Mean Corpuscular Volume 85.8 fL (83.0-100.0); Mean Platelet Volume 11.4 fL (9.4-12.4); Monocytes # 0.4 K/mcL (0.0-1.3); Monocytes % 4.2 %; Platelet Count 119 K/mcL (140-400); Red Blood Count 3.81 M/mcL (3.82-4.97); Red Cell Distribution Width 13.6 % (11.5-14.5); Segmented Neutrophils % 35.1 %
[2018-01-17 04:48] LABS: Hemoglobin 10.8 g/dL (11.5-15.4)
[2018-01-17 04:55] LABS: BUN/Creatinine Ratio 13 (6-26); Blood Urea Nitrogen 10 mg/dL (8-23); Calcium 8.8 mg/dL (8.6-10.3); Carbon Dioxide 26 mEq/L (23-29); Chloride 107 mEq/L (98-107); Glucose 192 mg/dL (70-105); Osmolality,Calculated 294 (280-300); Potassium 3.3 mEq/L (3.5-5.1); Sodium 140 mEq/L (136-145); eGFR For Non-African Americans > 60 (> 60)
[2018-01-17] MEDS: *HR* Heparin 5,000 UNIT/ML VIAL SQ SCH ×3 (05:57→20:35)
[2018-01-17 07:42] LABS: Estimated Average Glucose 174 mg/dl; Hemoglobin A1C 7.7 %
--- NOTE | 2018-01-17 08:17 | Internal Med Progress Note ---
<Navdeep Collado - Last Filed: 01/17/18 11:56> Hospitalist Progress Note - Encounter Date of Encounter: 01/17/18 Time of Encounter: 08:30 - Subjective Interval History: Patient was seen and examined at bedside this morning. She is still complaining of persistent abdominal pain. Denies dry heaves. No exacerbating or relieving factors. She denies having any nausea, vomiting, fever, or chills. Denies having any changes in her bowel movements. - Exam Vitals: Temp Pulse Resp BP Pulse Ox 98.1 F 81 15 143/77 95 01/17/18 06:44 01/17/18 06:44 01/17/18 06:44 01/17/18 06:44 01/17/18 06:44 Exam: General: Patient is in moderate distress; complains of abdominal pain HEENT: PERRL/EOMI, oropharynx clear, Normocephalic, atraumatic, mildly dry mucous membranes Cardiac: Regular rate and rhythm, S1 and S2, no murmurs, rubs, or gallops Pulmonary: Clear to auscultation bilaterally, no wheezes rales or rhonchi Abdomen: Soft, mildly tender to palpation in the epigastric region MSK: ROM intact, no joint swelling noted Extremities: no BLE edema, nontender calf, no cyanosis or clubbing - Assessment and Plan (1) Gastroparesis Current Visit: Yes Status: Chronic Assessment and Plan: Patient is a known history of chronic gastroparesis; multiple hospital admissions in the past - Was given Haldol in the emergency department; improvement of symptoms - EGD on 12/10/17 shows grade esophagitis, 2 cm hiatal hernia, mild edema, gastroparesis Plan - NPO, Fluid resuscitation with D5W at 100 mL per hour - Consult to GI, appreciate recommendations - Zofran when necessary - Hold pain medication for the time being due to risk of worsening gastroparesis - We will advance diet (2) Nausea & vomiting Current Visit: Yes Status: Acute Assessment and Plan: - Likely secondary to gastroparesis as above (3) CAD (coronary artery disease) Current Visit: Yes Status: Chronic Assessment and Plan: - Not in acute exacerbation, no chest pain - Continue home medications (4) Type 2 diabetes mellitus Current Visit: Yes Status: Chronic Assessment and Plan: Type 2 diabetes, insulin-dependent - Most recent A1c of 7.3% on 11/05/17 - Blood sugar 300 on presentation - SSI (5) DVT prophylaxis Current Visit: No Status: Acute Assessment and Plan: - Heparin 5000 units every 8 hours (6) Abdominal pain Current Visit: Yes Status: Acute Assessment and Plan: Likely secondary to gastroparesis as above We will give supportive care and treat underlying conditions CT scan abdomen demonstrated: 1. No acute findings in the abdomen or pelvis. 2. Similar appearance of right intramammary, abdominal, and pelvic lymphadenopathy as well as splenomegaly likely related to the patient's reported chronic lymphocytic leukemia. - Time Spent with Patient Total time spent is greater than 50% in coordination of care (as documented) at patient's floor/unit and/or counseling patient: Internal Medicine: Result - Labs CBC & Chem 7: 01/17/18 03:47 01/17/18 03:47 Labs: Short CBC 01/17/18 Range/Units 03:47 WBC 8.6 (4.3-11.1) K/mcL Hgb 10.8 L D (11.5-15.4) g/dL Hct 32.7 L (35.3-44.9) % Plt Count 119 L (140-400) K/mcL Neutrophils # 3.0 (1.6-8.9) K/mcL BMP 01/17/18 03:47 Sodium 140 Potassium 3.3 L Chloride 107 Carbon Dioxide 26 BUN 10 Creatinine 0.79 Glucose 192 H Calcium 8.8 - Impressions Impressions Abdomen/Pelvis CT 01/16/18 11:58 IMPRESSION: 1. No acute findings in the abdomen or pelvis. 2. Similar appearance of right intramammary, abdominal, and pelvic lymphadenopathy as well as splenomegaly likely related to the patient's reported chronic lymphocytic leukemia. D/ / Sony Carroll MD / Sony Carroll MD Interpreting Provider: Sony Carroll MD - VTE Documentation of Mechanical Device: Intermittent pneumatic compression device Consult Discharge Plan - Plan Referrals: Mariaelena Vasquez [employer] [Primary Care Provider] - <Deven Car - Last Filed: 01/18/18 01:21> Hospitalist Progress Note - Encounter Date of Encounter: 01/18/18 - Exam Vitals: Temp Pulse Resp BP Pulse Ox 98.7 F 70 14 127/73 92 01/17/18 23:55 01/17/18 23:55 01/17/18 23:55 01/17/18 23:55 01/17/18 23:55 - Assessment and Plan (1) Gastroparesis Current Visit: Yes Status: Chronic (2) Type 2 diabetes mellitus Current Visit: Yes Status: Chronic (3) CAD (coronary artery disease) Current Visit: Yes Status: Chronic (4) Nausea & vomiting Current Visit: Yes Status: Acute (5) DVT prophylaxis Current Visit: No Status: Acute (6) Abdominal pain Current Visit: Yes Status: Acute - Summary of Assessment and Plan Summary of Assessment and Plan: I examined this patient and my medical decision-making was reviewed with the Resident Physician. I agree with the documented findings, disposition and treatment plan as described except to the extent set forth below. Nausea and vomiting appears to be less in amount today after reviewing chart and per nursing. Patient states nausea is unchanged. On my exam today she is more comfortable. Abdomen soft, non-tender, non-distended with normal bowel sounds. Will advance diet today with clear liquid. If patient unable to tolerate and still requires IV fluids, will await GI recs tomorrow when services available. - Time Spent with Patient Total time spent is greater than 50% in coordination of care (as documented) at patient's floor/unit and/or counseling patient: Internal Medicine: Result - Labs CBC & Chem 7: 01/17/18 03:47 01/17/18 03:47 Labs: Short CBC 01/17/18 Range/Units 03:47 WBC 8.6 (4.3-11.1) K/mcL Hgb 10.8 L D (11.5-15.4) g/dL Hct 32.7 L (35.3-44.9) % Plt Count 119 L (140-400) K/mcL Neutrophils # 3.0 (1.6-8.9) K/mcL BMP 01/17/18 03:47 Sodium 140 Potassium 3.3 L Chloride 107 Carbon Dioxide 26 BUN 10 Creatinine 0.79 Glucose 192 H Calcium 8.8 <Navdeep Collado - Last Filed: 01/17/18 11:56> (2) Nausea & vomiting Qualifiers: Vomiting type: unspecified Vomiting Intractability: non-intractable Qualified Code(s): R11.2 - Nausea with vomiting, unspecified (3) CAD (coronary artery disease) Qualifiers: Coronary Disease-Associated Artery/Lesion type: [place] artery [place] vs. 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 transplanted heart: [place] heart Associated angina: without angina Qualified Code(s): I25.10 - Atherosclerotic heart disease of [place] coronary artery without angina pectoris (4) Nausea & vomiting Qualifiers: Vomiting type: unspecified Vomiting Intractability: non-intractable Qualified Code(s): R11.2 - Nausea with vomiting, unspecified (6) Abdominal pain Qualifiers: Abdominal location: epigastric Qualified Code(s): R10.13 - Epigastric pain
[2018-01-17] MEDS: Ringers Solution, Lactated 1,000 ML IVC SCH ×2 (08:57→15:58)
[2018-01-17] MEDS: Pantoprazole 40 MG VIAL IVP SCH (08:58)
[2018-01-17] MEDS: Metoprolol XL (24 HR) Succ 25 MG TAB.ER.24H PO SCH (08:59)
[2018-01-17] MEDS: Folic Acid 1 MG TABLET PO SCH (08:59)
[2018-01-17] MEDS: Topiramate 25 MG TABLET PO SCH ×2 (09:00→20:35)
[2018-01-17] MEDS: Pregabalin 50 MG CAPSULE PO SCH ×3 (09:00→20:35)
[2018-01-17] MEDS: Aspirin 81 MG TAB.CHEW PO SCH (09:00)
[2018-01-17] MEDS: Ondansetron 4 MG/2 ML VIAL IVP PRN (09:16)
[2018-01-17] MEDS: Insulin DETEMIR 100 UNIT/ML X5UNITS SQ SCH (20:34)
[2018-01-17] MEDS: Primidone 50 MG TABLET PO SCH (20:35)
[2018-01-18] MEDS: Insulin LISPRO 300 UNITS/3 ML VIAL SQ SCH ×3 (01:42→12:06)
[2018-01-18] MEDS: Ringers Solution, Lactated 1,000 ML IVC SCH ×2 (02:03→12:05)
[2018-01-18 04:14] LABS: Basophils % 0.5 %; Eosinophils # 0.1 K/mcL (0.0-0.6); Eosinophils % 1.6 %; Hematocrit 33.9 % (35.3-44.9); Hemoglobin 11.1 g/dL (11.5-15.4); Immature Granulocytes % 1.5 % (0-4); Lymphocytes % 61.4 %; Mean Corpuscular HGB Conc 32.7 g/dL (31.6-35.5); Mean Corpuscular Hemoglobin 28.4 pg (28.0-33.3); Mean Corpuscular Volume 86.7 fL (83.0-100.0); Mean Platelet Volume 10.7 fL (9.4-12.4); Monocytes # 0.4 K/mcL (0.0-1.3); Monocytes % 5.1 %; Neutrophils # 2.5 K/mcL (1.6-8.9); Platelet Count 106 K/mcL (140-400); Red Blood Count 3.91 M/mcL (3.82-4.97); Red Cell Distribution Width 13.7 % (11.5-14.5); Segmented Neutrophils % 29.9 %
[2018-01-18 04:36] LABS: BUN/Creatinine Ratio 8 (6-26); Blood Urea Nitrogen 7 mg/dL (8-23); Carbon Dioxide 30 mEq/L (23-29); Chloride 108 mEq/L (98-107); Glucose 138 mg/dL (70-105); Osmolality,Calculated 294 (280-300); Potassium 3.3 mEq/L (3.5-5.1); Sodium 142 mEq/L (136-145); eGFR For Non-African Americans > 60 (> 60)
[2018-01-18] MEDS: *HR* Heparin 5,000 UNIT/ML VIAL SQ SCH ×2 (06:20→14:23)
--- NOTE | 2018-01-18 08:59 | Electrocardiograph Report ---
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
[2018-01-18] MEDS ORDERED: Ascorbic Acid 500 MG TABLET PO SCH (09:00)
[2018-01-18] MEDS ORDERED: Loratadine 10 MG TABLET PO SCH (09:00)
[2018-01-18] MEDS ORDERED: Fluticasone Propionate Nasal 50 MCG/SPRAY BOTTLE NS SCH (09:00)
[2018-01-18] MEDS ORDERED: Cyanocobalamin (B-12) 1,000 MCG TABLET PO SCH (09:00)
[2018-01-18] MEDS: Aspirin 81 MG TAB.CHEW PO SCH (09:05)
[2018-01-18] MEDS: Folic Acid 1 MG TABLET PO SCH (09:06)
[2018-01-18] MEDS: Metoprolol XL (24 HR) Succ 25 MG TAB.ER.24H PO SCH (09:06)
[2018-01-18] MEDS: Topiramate 25 MG TABLET PO SCH (09:06)
[2018-01-18] MEDS: Pregabalin 50 MG CAPSULE PO SCH ×2 (09:06→14:24)
[2018-01-18] MEDS: Pantoprazole 40 MG VIAL IVP SCH (09:07)
[2018-01-18] MEDS ORDERED: traMADol 50 MG TABLET PO PRN (11:58)
[2018-01-18 11:59] VITALS: BP 156/78
--- NOTE | 2018-01-18 12:50 | Gastroenterology Consult Note ---
<Sony Barber - Last Filed: 01/18/18 12:48> Date of Encounter: 01/18/18 Time of Encounter: 11:15 - Assessment and plan (1) Gastroparesis Status: Acute Assessment and plan: Continue Zofran and Reglan. Patient has not been following gastroparesis diet restrictions. She has been eating oatmeal daily for breakfast. She needs to follow diet restrictions closely. No indication for repeat EGD. 1. Small frequent meals 2. Avoid fried and fatty foods 3. Chew food well 4. Blenderize food when symptomatic 5. Reduce or avoid high-fiber foods and medications 6. Avoid raw vegetables 7. If you have diabetes, keep blood sugars well controlled 8. Avoid medications that can delay gastric emptying such as narcotics, high- fiber medications, and high-fiber foods (2) Abdominal pain Status: Acute Assessment and plan: Continue PPI. Qualifiers: Abdominal location: epigastric Qualified Code(s): R10.13 - Epigastric pain - Time Spent With Patient Total time spent is greater than 50% in coordination of care (as documented) at patient's floor/unit and/or counseling patient: GI History of Present Illness - Data of Consult Patient: known to practice within the last 3 years Consult date: 01/18/18 Requesting Physician: David Conner MD - Consult Narrative Reason for consult: gastroparesis History of present illness: Ms. Vargas is a 67 year old female with PMHx of CLL, DM, CAD, HTN, CKD stage III, presented to the ED with c/o abdominal pain, nausea, and vomiting. She was admitted in November 2017 for similar symptoms. She had EGD that showed LA grade A reflux esophagitis, 2cm hiatal hernia, gastritis, and gastroparesis (retained gastric contents). She now reports epigastric pain since Thursday without exacerbating or relieving factors. CT A/P with no acute findings in the abdomen or pelvis. She states this happens often during the last week of the month. She denies changes in diet or medications. She is on Reglan. She reports eating oatmeal daily and some vegetables. CT A/P with no acute findings in the abdomen or pelvis. Procedures: EGD 12/10/2017 Dr. Salcedo: with [place] grade A refulx esophagitis, 2cm hiatal hernia, gastritis, and gastroparesis (retained gastric contents). Colonoscopy 08/20/17 Dr. Peñaloza: 2 tubular adenoma polyps. EGD 03/13/2017 Dr. Salcedo: [place] grade b esophagitis, chronic gastritis, gastroparesis NSAIDs: ASA Anticoagulation: None Past Med Surg Social Fam HX - Past Medical History Medical history: cancer, coronary artery disease, diabetes, hypertension, renal disease Additional medical history: CLL Psychiatric history: anxiety, depression - Past Surgical History Surgical History: appendectomy, cholecystectomy, knee replacement, THERESE/BSO Additional surgical history: Left total knee replacement - Social History Smoking Status: Never smoker Smokeless Tobacco Status: No Alcohol use: none Drug use: none - Family History Mother Family Member Ethnicity: Non- Living Status: Hx Family Cardiac Disorders: No Hx Family Respiratory Disorders: No Hx Family Cancer: No Hx Family GI Disorders: No Hx Family Endocrine Disorder: Yes (DM) Hx Family Neuromuscular Disorders: No Hx Family Neurologic Disorders: No Hx Family HEENT Disorders: No Hx Family Autoimmune Disorders: No Father Adopted: No Family Member Ethnicity: Non- Living Status: Hx Family Cardiac Disorders: Yes ([place]) Hx Family Respiratory Disorders: No Hx Family Cancer: No Hx Family GI Disorders: No Hx Family Endocrine Disorder: No Hx Family Neuromuscular Disorders: No Hx Family Neurologic Disorders: No Hx Family HEENT Disorders: No Hx Family Autoimmune Disorders: No - Gastrointestinal Gastrointestinal: Present: as per HPI - Constitutional Constitutional: as per HPI - EENT Eyes: as per HPI Ears: Present: as per HPI Nose, mouth and throat: Present: as per HPI - Cardiovascular Cardiovascular ROS: Present: as per HPI - Respiratory Respiratory IM: Present: as per HPI - Genitourinary Genitourinary: Absent: change in color, Urinary frequency - Neurological ROS Neurological GI: Present: as per HPI - Hematologic/Lymphatic Hematologic/Lymphatic pediatric: Present: as per HPI - Musculoskeletal Musculoskeletal ROS GI: Present: as per HPI - Integumentary Integumentary GI: Present: as per HPI - Psychiatric ROS Psychiatric GI: Present: as per HPI - Endocrine Endocrine IM: Present: as per HPI - Constitutional Vitals: Temp Pulse Resp BP Pulse Ox 98.6 F 77 14 156/78 95 01/18/18 11:51 01/18/18 11:51 01/18/18 11:51 01/18/18 11:51 01/18/18 11:51 General appearance: Present: cooperative, A&O X 3, no acute distress, answers questions appropriately - Head Head exam: Present: atraumatic, normocephalic - Eye Eye exam: Present: normal appearance, sclera anicteric - ENT ENT exam: Present: mucous membranes dry - Neck Neck exam general surgery: Present: normal inspection, trachea midline - Respiratory Respiratory exam: Present: CTAB. Absent: rales, rhonchi - Cardiovascular Cardiovascular exam: Present: RRR, +S1, +S2 - GI/Abdominal GI/Abdominal exam: Present: soft, tenderness (epigastric), no peritoneal signs. Absent: distended, firm, guarding - Rectal Rectal exam: Present: deferred - Extremities Exam Extremities exam: Present: warm - Neurological Exam Neurological exam: Present: no focal deficits - Psychiatric Psychiatric exam: Present: normal affect, normal mood - Skin Skin exam: Present: dry, intact, normal color, warm Results - Labs CBC & Chem 7: 01/18/18 03:50 01/18/18 03:50 Labs: Last Result Calcium 9.0 mg/dL (8.6-10.3) 01/18/18 03:50 Troponin I < 0.03 ng/mL (< 0.04) 01/15/18 22:31 Entire Visit Hgb 11.1 g/dL (11.5-15.4) L 01/18/18 03:50 Hct 33.9 % (35.3-44.9) L 01/18/18 03:50 Total Bilirubin 0.7 mg/dL (0.3-1.0) 01/15/18 22:31 AST 12 Units/L (13-39) L 01/15/18 22:31 ALT 11 Units/L (7-52) 01/15/18 22:31 Lipase 25 Units/L (11-82) 01/15/18 22:31 Consult Discharge Plan - Plan Instructions: Gastroparesis (DC) Additional Instructions: Per gastroenterology 1. Small frequent meals 2. Avoid fried and fatty foods 3. Chew food well 4. Blenderize food when symptomatic 5. Reduce or avoid high-fiber foods and medications 6. Avoid raw vegetables 7. If you have diabetes, keep blood sugars well controlled 8. Avoid medications that can delay gastric emptying such as narcotics, high- fiber medications, and high-fiber foods Referrals: Mariaelena Vasquez, BACTERIOLOGY TECHNICIAN [Primary Care Provider] - 01/20/18 3:00 pm Prescriptions: Metoclopramide [Reglan] 5 mg PO TIDAC #40 tablet <Rodo Salcedo - Last Filed: 01/25/18 13:02> Date of Encounter: 01/18/18 - Time Spent With Patient Total time spent is greater than 50% in coordination of care (as documented) at patient's floor/unit and/or counseling patient: GI History of Present Illness - Data of Consult Requesting Physician: David Conner MD - Consult Narrative History of present illness: Ms. Vargas is a 67 year old female - Constitutional Vitals: Temp Pulse Resp BP Pulse Ox 98.6 F 77 14 156/78 95 01/18/18 11:51 01/18/18 11:51 01/18/18 11:51 01/18/18 11:51 01/18/18 11:51 Results - Labs CBC & Chem 7: 01/18/18 03:50 01/18/18 03:50 Labs: Last Result Calcium 9.0 mg/dL (8.6-10.3) 01/18/18 03:50 Troponin I < 0.03 ng/mL (< 0.04) 01/15/18 22:31 Entire Visit Hgb 11.1 g/dL (11.5-15.4) L 01/18/18 03:50 Hct 33.9 % (35.3-44.9) L 01/18/18 03:50 Total Bilirubin 0.7 mg/dL (0.3-1.0) 01/15/18 22:31 AST 12 Units/L (13-39) L 01/15/18 22:31 ALT 11 Units/L (7-52) 01/15/18 22:31 Lipase 25 Units/L (11-82) 01/15/18 22:31 - Attending Attestation 67 year old female with multiple medical problems and recurrent nausea and vomiting due to hard to manage gastroparesis and compliance issues. Manage conservatively. I have personally performed a face to face evaluation on this patient. I have reviewed and agree with the care plan. History and Exam by me shows:
--- NOTE | 2018-01-18 13:58 | Discharge Summary ---
<RachelAntonGreg W - Last Filed: 01/18/18 13:56> - NOTES TO OUTPATIENT PROVIDER Notes to Outpatient Provider: Poor adherence to diet for gastroparesis. Date of Encounter: 01/18/18 Time of Encounter: 08:30 - Discharge Diagnosis (1) Gastroparesis Priority: Primary Status: Acute Comments: Known history of gastroparesis Multiple hospital admissions in the past EGD on 12/10/17 shows great esophagitis, 2 cm hiatal hernia, mild edema, gastroparesis plan -Advance to full liquid diet, discharge if tolerated -GI consulted, appreciate Recs, continue strict diet -Continue Reglan outpatient (2) Nausea & vomiting Priority: Secondary Status: Acute Comments: Likely secondary to gastroparesis as above Has resolved Qualifiers: Vomiting type: unspecified Vomiting Intractability: non-intractable Qualified Code(s): R11.2 - Nausea with vomiting, unspecified (3) DM2 (diabetes mellitus, type 2) Priority: Secondary Status: Chronic Comments: Type 2 diabetes, insulin-dependent -Was recent A1c at 7.3% on 10/26/17 -Blood sugar 300 on presentation -SSI Qualifiers: Diabetes mellitus group home insulin use: with terminal operations manager use Diabetes mellitus complication status: with kidney complications Diabetes mellitus complication detail: with chronic kidney disease Chronic kidney disease stage : stage 3 (moderate) Qualified Code(s): E11.22 - Type 2 diabetes mellitus with diabetic chronic kidney disease; N18.3 - Chronic kidney disease, stage 3 ( moderate); N18.3 - Chronic kidney disease, stage 3 (moderate); Z79.4 - longterm (current) use of insulin; Z79.4 - longterm (current) use of insulin; Z79.4 - long term care pharmacist (current) use of insulin; Z79.4 - longterm (current) use of insulin (4) CAD (coronary artery disease) Priority: Secondary Status: Chronic Comments: No acute exacerbations Continue home medications Qualifiers: Coronary Disease-Associated Artery/Lesion type: eek artery [place] vs. transplanted heart: eek heart Associated angina: without angina Qualified Code(s): I25.10 - Atherosclerotic heart disease of eek coronary artery without angina pectoris (5) DVT prophylaxis Priority: Secondary Status: Acute Comments: Heparin 5000 units every 8 hours subcutaneous Hospital course: Ms. Vargas is a 67 year old female with a past medical history of diabetes, CAD , hypertension, stage III chronic kidney disease, CLL, anxiety, and depression who presented to the emergency department with complaints abdominal pain, nausea and vomiting on 01/15/18. She states she has been hospitalized for this problem several times in the past 8 months. Patient had pain in epigastric region without radiation. described as sharp in nature without exacerbating or relieving factors. Patient denies any change in her bowel movements at time of admission. Patient stated the nausea and vomiting were consistent denied exacerbation with meals and admission. She admitted to a decrease in appetite. Vomiting was clear no evidence of blood. Over hospital course patient began slowly improve. She had several bowel movements in the past 2 days. And has an increased amount of flatus yesterday and today. Patient denies fever or chills. CT scan abdomen and pelvis found no acute findings. Patient has not had any recent nausea vomiting diarrhea constipation. Patient taking her home medications and was given Reglan, Zofran, promethazine as needed for her GI complaints. - Time Spent with Patient Total time spent providing and/or coordinating discharge services: - Discharge Medications Prescriptions: Metoclopramide [Reglan] 5 mg PO TIDAC #40 tablet Home Medications: Aspirin 81 mg PO DAILY 04/05/15 [History] Topiramate [Topamax] 25 mg PO BID 08/23/15 [History] Folic Acid 1 mg PO DAILY #30 tablet 09/18/15 [Rx] Primidone [Mysoline] 50 mg PO HS 02/28/16 [History] Ascorbic Acid [Vitamin C] 500 mg PO DAILY 03/06/16 [History] Ferrous Sulfate [Iron] 325 mg PO DAILY 03/06/16 [History] Fluticasone Propionate Nasal [Flonase] 100 mcg NS DAILY 11/26/16 [History] Insulin Glargine/Lixisenatide [Soliqua 100 Unit-33 Mcg/ml Pen] 60 unit SQ HS [History] Tramadol HCl [Ultram] 50 mg PO TID 11/26/16 [History] Cyanocobalamin (Vitamin B-12) [Vitamin B-12] 500 mcg PO DAILY 05/06/17 [History] Linagliptin [Tradjenta] 5 mg PO DAILY 05/06/17 [History] Loratadine [Claritin] 10 mg PO DAILY 05/06/17 [History] Metoprolol XL (24 HR) Succ [Toprol Xl] 25 mg PO DAILY 05/06/17 [History] Pioglitazone [Actos] 15 mg PO DAILY 05/06/17 [History] Pregabalin [Lyrica] 100 mg PO TID 05/06/17 [History] Sucralfate [Carafate] 1 gm PO QID 05/06/17 [History] Acetaminophen [Tylenol] 650 mg PO Q6HR PRN tablet 07/10/17 [Rx] Albuterol Neb [Proventil Neb] 2.5 mg IH Q4H PRN #1 inhsol 09/22/17 [Rx] Omeprazole [PriLOSEC] 40 mg PO DAILY 11/05/17 [History] Docusate [Colace] 100 mg PO DAILY #30 capsule 11/11/17 [Rx] Atorvastatin [Lipitor] 40 mg PO HS 12/06/17 [History] Ergocalciferol (VITAMIN D2) [Vitamin D2] 50,000 unit PO WE 12/06/17 [History] Insulin Regular Human [Humulin R] 0 - 10 units SQ TIDWM 12/06/17 [History] raNITIdine HCl [Zantac] 150 mg PO DAILY 12/06/17 [History] Doxepin [Sinequan] 25 mg PO HS #30 capsule 12/11/17 [Rx] Metoclopramide [Reglan] 5 mg PO TIDAC PRN #40 tablet 12/11/17 [Rx] Famotidine [Pepcid] 20 mg PO BID #10 tablet 01/14/18 [Rx] Furosemide [Lasix] 20 mg PO DAILY 01/16/18 [History] Metoclopramide [Reglan] 5 mg PO TIDAC #40 tablet 01/18/18 [Rx] Allergies/Adverse Reactions: 3 Allergy/AdvReac Type Severity Reaction Status Date / Time metformin Allergy Nausea Verified 01/14/18 13:35 Sulfa (Sulfonamide Allergy Nausea Verified 01/14/18 13:35 Antibiotics) sulfamethoxazole Allergy Nausea Verified 01/14/18 13:35 [From Bactrim] trimethoprim [From Bactrim] Allergy Nausea Verified 01/14/18 13:35 Date of admission: 01/15/18 23:47 Primary care physician: Mariaelena Vasquez CNP Consults: 01/16/18 00:55 Consult to Gastroenterology [CONS] Routine Consulting Provider: Gastroenterology Mikaela Reason for Consult: gastroparesis, n/v Call Completed: No 01/16/18 00:58 Consult to Nutrition [CONS] Routine Comment: Consulting Provider: NUTRITION Reason for Dietary Consult: MST Score Discharging clinician: Greg Ramos Anticipated date of discharge: 01/18/18 - Constitutional Vitals: Temp Pulse Resp BP Pulse Ox 98.6 F 77 14 156/78 95 01/18/18 11:51 01/18/18 11:51 01/18/18 11:51 01/18/18 11:51 01/18/18 11:51 General appearance: Present: A&O X 3, pleasant, no acute distress, obese - Head Head exam: Present: atraumatic, normocephalic - Eye Eye exam: Present: EOMI, PERRL - Respiratory Respiratory exam: Present: CTAB. Absent: respiratory distress, rhonchi, stridor , wheezes - Cardiovascular Cardiovascular exam: Present: RRR, +S1, +S2. Absent: irregular rhythm, +S3, +S4 - GI/Abdominal GI/Abdominal exam: Present: normal bowel sounds, soft, tenderness - Psychiatric Psychiatric exam: Present: flat affect, normal mood - Patient Status Disposition: Home, Self-Care Condition: Good Overall status at discharge: patient is progressing back to baseline - Discharge Instructions Follow Up With: Mariaelena Vasquez CNP [Primary Care Provider] - Additional Instructions: Per gastroenterology 1. Small frequent meals 2. Avoid fried and fatty foods 3. Chew food well 4. Blenderize food when symptomatic 5. Reduce or avoid high-fiber foods and medications 6. Avoid raw vegetables 7. If you have diabetes, keep blood sugars well controlled 8. Avoid medications that can delay gastric emptying such as narcotics, high- fiber medications, and high-fiber foods - Diet and Activity Activity: increase activity as tolerated Diet: other - VTE Documentation of Mechanical Device: Intermittent pneumatic compression device <David Conner - Last Filed: 01/18/18 14:44> - NOTES TO OUTPATIENT PROVIDER Notes to Outpatient Provider: Patient hospitalized with diabetic gastroparesis. Treated with antiemetics. Mammogram underlying gastritis. On PPI. Evaluated by gastroenterology. Recommended to stick with diet restrictions for gastroparesis and outpatient follow-up. Placed on metoclopramide 3 times a day before meals to help with symptoms. Tolerating diet at this time and will be discharged if she continues to do well with diet later today. Date of Encounter: 01/18/18 Time of Encounter: 08:30 Discharge discussed with: patient - Time Spent with Patient Total time spent providing and/or coordinating discharge services: Less than 30 minutes (25 min) Date of admission: 01/15/18 23:47 Primary care physician: Mariaelena Vasquez CNP Consults: 01/16/18 00:55 Consult to Gastroenterology [CONS] Routine Consulting Provider: Gastroenterology Mikaela Reason for Consult: gastroparesis, n/v Call Completed: No 01/16/18 00:58 Consult to Nutrition [CONS] Routine Comment: Consulting Provider: NUTRITION Reason for Dietary Consult: MST Score - Constitutional Vitals: Temp Pulse Resp BP Pulse Ox 98.6 F 77 14 156/78 95 01/18/18 11:51 01/18/18 11:51 01/18/18 11:51 01/18/18 11:51 01/18/18 11:51 General appearance: Present: A&O X 3, pleasant, no acute distress, answers questions appropriately - Neck Neck exam general surgery: Present: supple, trachea midline. Absent: lymphadenopathy - Cardiovascular Cardiovascular exam: Present: RRR, +S1, +S2. Absent: diastolic murmur, gallop, rubs, systolic murmur - GI/Abdominal GI/Abdominal exam: Present: normal bowel sounds, soft, no peritoneal signs. Absent: distended, tenderness - Extremities Exam Extremities exam: Present: warm, radial pulses palpable and symmetrical. Absent : calf tenderness, cyanotic, pedal edema - Neurological Exam Neurological exam: Present: alert, oriented X3, no focal deficits. Absent: facial droop, speech deficit - Patient Status Overall status at discharge: patient is progressing back to baseline
[2018-01-18] MEDS ORDERED: Insulin LISPRO 300 UNITS/3 ML VIAL SQ SCH ×2 (16:30→21:00)
[2018-01-20] MEDS ORDERED: Cholecalciferol (D-3) 1,000 UNIT TABLET PO SCH (10:38)
== END 2018-01-18 18:41 | disposition home or self-care (01) ==
LOC: EMEROO 21:37 → 3ANU 21:37 → SUATTDRO 23:47 → 3ANU 01-16 00:04
PROVIDERS: ADMIT Student in an Organized Health Care Education/Training Program; ATTEND Internal Medicine

== ENCOUNTER 2018-06-16 22:18 | Inpatient (IN) ==
[2018-06-16 22:56] LABS: Hematocrit 44.4 % (35.3-44.9); Hemoglobin 14.5 g/dL (11.5-15.4); Mean Corpuscular HGB Conc 32.7 g/dL (31.6-35.5); Mean Corpuscular Hemoglobin 29.1 pg (28.0-33.3); Mean Platelet Volume 11.4 fL (9.4-12.4); Neutrophils # 0.2 K/mcL (1.6-8.9); Platelet Count 153 K/mcL (140-400); Red Blood Count 4.99 M/mcL (3.82-4.97); Red Cell Distribution Width 13.5 % (11.5-14.5)
[2018-06-16 23:18] LABS: BUN/Creatinine Ratio 15 (6-26); Blood Urea Nitrogen 20 mg/dL (8-23); Calcium 9.4 mg/dL (8.6-10.3); Carbon Dioxide 26 mEq/L (23-29); Chloride 96 mEq/L (98-107); Glucose 480 mg/dL (70-105); Osmolality,Calculated 300 (280-300); Potassium 3.6 mEq/L (3.5-5.1); Sodium 133 mEq/L (136-145); eGFR For Non-African Americans 40 (> 60)
[2018-06-16 23:19] LABS: Lymphocytes # 9.7 K/mcL (0.6-4.6); Monocytes # 0.6 K/mcL (0.0-1.3); Troponin I < 0.03 ng/mL (< 0.04)
[2018-06-16 23:20] LABS: Platelet Estimate Slight Decrease (Normal); Reactive Lymphocytes Present (Not Present)
--- NOTE | 2018-06-17 00:07 | Emergency Department Note ---
Disposition Clinical Impression: Cough Community acquired pneumonia Qualifiers: Laterality: left Lung location: lower lobe of lung Qualified Code(s): J18.1 - Lobar pneumonia, unspecified organism Dyspnea Qualifiers: Dyspnea type: shortness of breath Qualified Code(s): R06.02 - Shortness of breath Disposition: Admitted As Inpatient Condition: Fair Referrals: Mariaelena Vasquez, GENERAL SURGERY PHYSICIAN ASSISTANT [Primary Care Provider] - Forms: ED Satisfaction Letter Time of Disposition: 02:30 SOB HPI - General Chief Complaint: ED Shortness of Breath/Dyspnea Stated Complaint: "STEFFEN/States Bronchitis is Getting Worse" Time Seen by Provider: 06/17/18 00:00 Source: patient Limitations: no limitations Nursing Notes Reviewed: Yes Vital Signs Reviewed: Yes - History of Present Illness 67-year-old female presents from home for evaluation of persistent deep cough and shortness of breath. History COPD. Was diagnosed one week ago with bronchitis at this emergency department, prescribed antibiotics and prednisone as well as an inhaler. She has shortness of breath with mild exertion. Her symptoms have not improved as her dry cough persists. PMH: COPD. Cardiac dysrhythmia otherwise not defined by the patient. CLL. D iabetes on oral and insulin anti-hyperglycemics. Antiplatelet: Aspirin Anticoagulant: None Habits: Does not and has never smoked cigarettes. History of asthma. ROS: Positive: As above Negative: Fever, chills, nausea, vomiting, chest pain, palpitations, diaphoresis, abdominal pain, diarrhea, constipation - Related Data Home Medications Medication Instructions Recorded Confirmed Aspirin 81 mg PO DAILY 04/05/15 05/24/18 Topiramate [Topamax] 25 mg PO BID 08/23/15 05/24/18 Primidone [Mysoline] 50 mg PO HS 02/28/16 05/24/18 Ascorbic Acid [Vitamin C] 500 mg PO DAILY 03/06/16 05/24/18 Ferrous Sulfate [Iron] 325 mg PO DAILY 03/06/16 05/24/18 Fluticasone Propionate Nasal 100 mcg NS DAILY 11/26/16 05/24/18 [Flonase] Insulin Glargine/Lixisenatide 60 unit SQ HS 11/26/16 05/24/18 [Soliqua 100 Unit-33 Mcg/ml Pen] Tramadol HCl [Ultram] 50 mg PO TID 11/26/16 05/24/18 Cyanocobalamin (Vitamin B-12) 500 mcg PO DAILY 05/06/17 05/24/18 [Vitamin B-12] Linagliptin [Tradjenta] 5 mg PO DAILY 05/06/17 05/24/18 Loratadine [Claritin] 10 mg PO DAILY 05/06/17 05/24/18 Metoprolol XL (24 HR) Succ [Toprol 25 mg PO DAILY 05/06/17 05/24/18 Xl] Pioglitazone [Actos] 15 mg PO DAILY 05/06/17 05/24/18 Pregabalin [Lyrica] 100 mg PO TID 05/06/17 05/24/18 Sucralfate [Carafate] 1 gm PO QID 05/06/17 05/24/18 Omeprazole [PriLOSEC] 40 mg PO DAILY 11/05/17 05/24/18 Atorvastatin [Lipitor] 40 mg PO HS 12/06/17 05/24/18 Ergocalciferol (VITAMIN D2) 50,000 unit PO WE 12/06/17 05/24/18 [Vitamin D2] Insulin Regular Human [Humulin R] 0 - 10 units SQ TIDWM 12/06/17 05/24/18 raNITIdine HCl [Zantac] 150 mg PO DAILY 12/06/17 05/24/18 Furosemide [Lasix] 20 mg PO DAILY 01/16/18 05/24/18 Previous Rx's Medication Instructions Recorded Folic Acid 1 mg PO DAILY #30 tablet 09/18/15 Acetaminophen [Tylenol] 650 mg PO Q6HR PRN tablet 07/10/17 Albuterol Neb [Proventil Neb] 2.5 mg IH Q4H PRN #1 inhsol 09/22/17 Docusate [Colace] 100 mg PO DAILY #30 capsule 11/11/17 Doxepin [Sinequan] 25 mg PO HS #30 capsule 12/11/17 Metoclopramide [Reglan] 5 mg PO TIDAC PRN #40 tablet 12/11/17 Famotidine [Pepcid] 20 mg PO BID #10 tablet 01/14/18 Albuterol Sulfate [Albuterol 1 puff IH Q6HR PRN #1 inhaler 06/08/18 Inhaler] predniSONE [Prednisone] 50 mg PO DAILY #4 tablet 06/08/18 Allergies Allergy/AdvReac Type Severity Reaction Status Date / Time metformin Allergy Nausea Verified 06/08/18 21:09 Sulfa (Sulfonamide Allergy Nausea Verified 06/08/18 21:09 Antibiotics) sulfamethoxazole Allergy Nausea Verified 06/08/18 21:09 [From Bactrim] trimethoprim [From Bactrim] Allergy Nausea Verified 06/08/18 21:09 All systems ED: reviewed and negative except as stated. Review of Systems: As Per HPI Past Medical History - Past Medical History Medical history: Reports: cancer, COPD, coronary artery disease, diabetes, hypertension, renal disease Surgical history: Reports: appendectomy, cholecystectomy, knee replacement, THERESE/BSO Psychiatric history: Reports: anxiety, depression GLASS PRESSER history: Reports: no GLASS PRESSER history - Social History Smoking Status: Never smoker Smokeless Tobacco Status: No Alcohol use: Reports: none Drug use: Reports: none Physical Exam Vital Signs Reviewed General: Patient is alert, oriented, and in mild respiratory distress. 4-5 word conversational dyspnea. Mild accessory muscle usage. Head: atraumatic, normocephalic Eye: normal appearance, PERRL, EOMI, no scleral icterus, no conjunctival injection ENT: mucous membranes moist, normal external ear exam Neck: normal inspection, trachea midline, full ROM Chest: normal inspection, symmetric chest rise Respiratory: Poor respiratory effort. Lungs expiratory phase. Vital breast sounds have scattered wheezes without crackles or rhonchi. Cardiovascular: Regular rate and rhythm. No clicks, rubs, gallops, or murmors. Normal heart sounds. Abdomen: Bowel sounds present normoactive. Abdomen is soft, nondistended, and nontender. No guarding or rebound. No organomegaly noted. Musculoskeletal: Spontaneously moving all extremities. Skin: warm, dry, intact. Neuro: GCS 15. No focal neurologic deficits observed. Psych: Patient's affect is appropriate for situation. - General Limitations: no limitations General appearance: alert, in no apparent distress Course Course Narrative: Clinical concern for persistent bronchitis versus acute exacerbation of COPD versus pneumonia. Patient has not been inpatient to the hospital in the last 90 days. Patient denies ever having smoked and denies any history of asthma. In reviewing oncology note, patient smoked on and off for several years but quit 10 years ago. Chest x-ray shows left basilar pneumonia. Empiric azithromycin and ceftriaxone given. EKG shows no acute ischemic changes. Serum hematology so is no leukocytosis or leukocytopenia. Serum chemistry shows acute kidney injury with elevated creatinine above her baseline. Also shows elevated lactic acid at 2.8. Timed Lactic Acid Has Returned within Normal Limits after IV Fluids. I discussed the above with the admitting hospitalist, Dr. Valente who agrees to accept the patient for community acquired pneumonia Chest X-Ray 06/16/18 22:34 IMPRESSION: Mild left basilar airspace disease, atelectasis or pneumonia D/ / Avani Davis Cha, MD / Avani Davis Cha, MD Interpreting Provider: Avani Davis Cha, MD Vital Signs Temperature 97.7 F 06/16/18 22:29 Pulse Rate 115 06/16/18 22:29 Respiratory Rate 16 06/16/18 22:29 Blood Pressure 101/64 06/16/18 22:29 O2 Sat by Pulse Oximetry 93 06/16/18 22:29 Temperature 97.7 F 06/16/18 22:29 Pulse Rate 87 06/17/18 00:58 Respiratory Rate 20 06/17/18 00:58 Blood Pressure 151/78 06/17/18 00:58 O2 Sat by Pulse Oximetry 97 06/17/18 00:58 Oxygen Delivery Oxygen Delivery Aerosol Mask Shortness of Breath/Dyspnea - Lab Data Result diagrams: 06/16/18 22:46 06/16/18 22:46 Lab Results 06/16/18 06/16/18 06/16/18 Range/Units 22:46 22:46 22:46 WBC 10.5 (4.3-11.1) K/mcL RBC 4.99 H (3.82-4.97) M/mcL Hgb 14.5 (11.5-15.4) g/dL Hct 44.4 (35.3-44.9) % MCV 89.0 (83.0-100.0) fL MCH 29.1 (28.0-33.3) pg MCHC 32.7 (31.6-35.5) g/dL RDW 13.5 (11.5-14.5) % Plt Count 153 (140-400) K/mcL MPV 11.4 (9.4-12.4) fL Immature Gran % Test Not Performed Seg Neutrophils % 2.0 % Lymphocytes % 92.0 % Monocytes % 6.0 % Eosinophils % Test Not Performed Basophils % Test Not Performed Neutrophils # 0.2 L (1.6-8.9) K/mcL Lymphocytes # 9.7 H (0.6-4.6) K/mcL Monocytes # 0.6 (0.0-1.3) K/mcL Eosinophils # Test Not Performed Basophils # Test Not Performed Reactive Lymphocytes Present A (Not Present) Platelet Estimate Slight Decrease L (Normal) Sodium 133 L (136-145) mEq/L Potassium 3.6 (3.5-5.1) mEq/L Chloride 96 L (98-107) mEq/L Carbon Dioxide 26 (23-29) mEq/L BUN 20 (8-23) mg/dL Creatinine 1.33 H (0.60-1.20) mg/dL Est GFR ( Amer) 48 L (> 60) Est GFR (Non-Af Amer) 40 L (> 60) BUN/Creatinine Ratio 15 (6-26) Glucose 480 H (70-105) mg/dL Calculated Osmolality 300 (280-300) Lactic Acid 2.8 H (0.5-2.2) mmol/L Calcium 9.4 (8.6-10.3) mg/dL Troponin I < 0.03 (< 0.04) ng/mL B-Natriuretic Peptide (Less than 100) pg/mL 06/16/18 06/17/18 Range/Units 22:46 00:33 WBC (4.3-11.1) K/mcL RBC (3.82-4.97) M/mcL Hgb (11.5-15.4) g/dL Hct (35.3-44.9) % MCV (83.0-100.0) fL MCH (28.0-33.3) pg MCHC (31.6-35.5) g/dL RDW (11.5-14.5) % Plt Count (140-400) K/mcL MPV (9.4-12.4) fL Immature Gran % Seg Neutrophils % % Lymphocytes % % Monocytes % % Eosinophils % Basophils % Neutrophils # (1.6-8.9) K/mcL Lymphocytes # (0.6-4.6) K/mcL Monocytes # (0.0-1.3) K/mcL Eosinophils # Basophils # Reactive Lymphocytes (Not Present) Platelet Estimate (Normal) Sodium (136-145) mEq/L Potassium (3.5-5.1) mEq/L Chloride (98-107) mEq/L Carbon Dioxide (23-29) mEq/L BUN (8-23) mg/dL Creatinine (0.60-1.20) mg/dL Est GFR ( Amer) (> 60) Est GFR (Non-Af Amer) (> 60) BUN/Creatinine Ratio (6-26) Glucose (70-105) mg/dL Calculated Osmolality (280-300) Lactic Acid 0.9 (0.5-2.2) mmol/L Calcium (8.6-10.3) mg/dL Troponin I (< 0.04) ng/mL B-Natriuretic Peptide 11 (Less than 100) pg/mL
[2018-06-17] MEDS ORDERED: 0.9 % Sodium Chloride 500 ML IVC ONE (00:31)
[2018-06-17] MEDS ORDERED: cefTRIAXone 2,000 MG in 0.9 % Sodium Chloride Mini Bag 100 ML IVPB ONE (00:34)
[2018-06-17] MEDS ORDERED: Azithromycin 500 MG in D5% in Water 250 ML IVPB ONE (00:34)
[2018-06-17] MEDS ORDERED: Ipratropium/Albuterol Neb 3 ML IH ONE (00:36)
--- NOTE | 2018-06-17 02:25 | Emergency Department Note ---
Disposition Clinical Impression: Cough Community acquired pneumonia Qualifiers: Laterality: left Lung location: lower lobe of lung Qualified Code(s): J18.1 - Lobar pneumonia, unspecified organism Dyspnea Qualifiers: Dyspnea type: shortness of breath Qualified Code(s): R06.02 - Shortness of breath; R06.00 - Dyspnea, unspecified; R06.01 - Orthopnea Disposition: Admitted As Inpatient Condition: Fair Referrals: Mariaelena Vasquez MAP DRAFTER [Primary Care Provider] - Forms: ED Satisfaction Letter General Adult HPI - General Chief complaint: ED Shortness of Breath/Dyspnea Stated complaint: "STEFFEN/States Bronchitis is Getting Worse" Time Seen by Provider: 06/17/18 00:00 Source: patient Limitations: no limitations Nursing Notes Reviewed: Yes Vital Signs Reviewed: Yes - History of Present Illness Pain Scale: 6 - Related Data Home Medications Medication Instructions Recorded Confirmed Aspirin 81 mg PO DAILY 04/05/15 05/24/18 Topiramate [Topamax] 25 mg PO BID 08/23/15 05/24/18 Primidone [Mysoline] 50 mg PO HS 02/28/16 05/24/18 Ascorbic Acid [Vitamin C] 500 mg PO DAILY 03/06/16 05/24/18 Ferrous Sulfate [Iron] 325 mg PO DAILY 03/06/16 05/24/18 Fluticasone Propionate Nasal 100 mcg NS DAILY 11/26/16 05/24/18 [Flonase] Insulin Glargine/Lixisenatide 60 unit SQ HS 11/26/16 05/24/18 [Soliqua 100 Unit-33 Mcg/ml Pen] Tramadol HCl [Ultram] 50 mg PO TID 11/26/16 05/24/18 Cyanocobalamin (Vitamin B-12) 500 mcg PO DAILY 05/06/17 05/24/18 [Vitamin B-12] Linagliptin [Tradjenta] 5 mg PO DAILY 05/06/17 05/24/18 Loratadine [Claritin] 10 mg PO DAILY 05/06/17 05/24/18 Metoprolol XL (24 HR) Succ [Toprol 25 mg PO DAILY 05/06/17 05/24/18 Xl] Pioglitazone [Actos] 15 mg PO DAILY 05/06/17 05/24/18 Pregabalin [Lyrica] 100 mg PO TID 05/06/17 05/24/18 Sucralfate [Carafate] 1 gm PO QID 05/06/17 05/24/18 Omeprazole [PriLOSEC] 40 mg PO DAILY 11/05/17 05/24/18 Atorvastatin [Lipitor] 40 mg PO HS 12/06/17 05/24/18 Ergocalciferol (VITAMIN D2) 50,000 unit PO WE 12/06/17 05/24/18 [Vitamin D2] Insulin Regular Human [Humulin R] 0 - 10 units SQ TIDWM 12/06/17 05/24/18 raNITIdine HCl [Zantac] 150 mg PO DAILY 12/06/17 05/24/18 Furosemide [Lasix] 20 mg PO DAILY 01/16/18 05/24/18 Previous Rx's Medication Instructions Recorded Folic Acid 1 mg PO DAILY #30 tablet 09/18/15 Acetaminophen [Tylenol] 650 mg PO Q6HR PRN tablet 07/10/17 Albuterol Neb [Proventil Neb] 2.5 mg IH Q4H PRN #1 inhsol 09/22/17 Docusate [Colace] 100 mg PO DAILY #30 capsule 11/11/17 Doxepin [Sinequan] 25 mg PO HS #30 capsule 12/11/17 Metoclopramide [Reglan] 5 mg PO TIDAC PRN #40 tablet 12/11/17 Famotidine [Pepcid] 20 mg PO BID #10 tablet 01/14/18 Albuterol Sulfate [Albuterol 1 puff IH Q6HR PRN #1 inhaler 06/08/18 Inhaler] predniSONE [Prednisone] 50 mg PO DAILY #4 tablet 06/08/18 Allergies Allergy/AdvReac Type Severity Reaction Status Date / Time metformin Allergy Nausea Verified 06/08/18 21:09 Sulfa (Sulfonamide Allergy Nausea Verified 06/08/18 21:09 Antibiotics) sulfamethoxazole Allergy Nausea Verified 06/08/18 21:09 [From Bactrim] trimethoprim [From Bactrim] Allergy Nausea Verified 06/08/18 21:09 Past Medical History - Past Medical History Medical history: Reports: cancer, COPD, coronary artery disease, diabetes, hypertension, renal disease Surgical history: Reports: appendectomy, cholecystectomy, knee replacement, THERESE/BSO Psychiatric history: Reports: anxiety, depression LINEN GRADER history: Reports: no LINEN GRADER history - Social History Smoking Status: Never smoker Smokeless Tobacco Status: No Alcohol use: Reports: none Drug use: Reports: none Physical Exam - General Limitations: no limitations General appearance: alert, in no apparent distress Course Vital Signs Temperature 97.7 F 06/16/18 22:29 Pulse Rate 115 06/16/18 22:29 Respiratory Rate 16 06/16/18 22:29 Blood Pressure 101/64 06/16/18 22:29 O2 Sat by Pulse Oximetry 93 06/16/18 22:29 Temperature 97.7 F 06/16/18 22:29 Pulse Rate 87 06/17/18 00:58 Respiratory Rate 20 06/17/18 00:58 Blood Pressure 151/78 06/17/18 00:58 O2 Sat by Pulse Oximetry 97 06/17/18 00:58 Oxygen Delivery Oxygen Delivery Aerosol Mask Medical Decision Making - Medical Records Medical records reviewed: Yes I reviewed the patient's medical records. - Lab Data Lab results reviewed: Yes I reviewed the patient's lab results. Result diagrams: 06/16/18 22:46 06/16/18 22:46 Lab Results 06/16/18 06/16/18 06/16/18 Range/Units 22:46 22:46 22:46 WBC 10.5 (4.3-11.1) K/mcL RBC 4.99 H (3.82-4.97) M/mcL Hgb 14.5 (11.5-15.4) g/dL Hct 44.4 (35.3-44.9) % MCV 89.0 (83.0-100.0) fL MCH 29.1 (28.0-33.3) pg MCHC 32.7 (31.6-35.5) g/dL RDW 13.5 (11.5-14.5) % Plt Count 153 (140-400) K/mcL MPV 11.4 (9.4-12.4) fL Immature Gran % Test Not Performed Seg Neutrophils % 2.0 % Lymphocytes % 92.0 % Monocytes % 6.0 % Eosinophils % Test Not Performed Basophils % Test Not Performed Neutrophils # 0.2 L (1.6-8.9) K/mcL Lymphocytes # 9.7 H (0.6-4.6) K/mcL Monocytes # 0.6 (0.0-1.3) K/mcL Eosinophils # Test Not Performed Basophils # Test Not Performed Reactive Lymphocytes Present A (Not Present) Platelet Estimate Slight Decrease L (Normal) Sodium 133 L (136-145) mEq/L Potassium 3.6 (3.5-5.1) mEq/L Chloride 96 L (98-107) mEq/L Carbon Dioxide 26 (23-29) mEq/L BUN 20 (8-23) mg/dL Creatinine 1.33 H (0.60-1.20) mg/dL Est GFR ( Amer) 48 L (> 60) Est GFR (Non-Af Amer) 40 L (> 60) BUN/Creatinine Ratio 15 (6-26) Glucose 480 H (70-105) mg/dL Calculated Osmolality 300 (280-300) Lactic Acid 2.8 H (0.5-2.2) mmol/L Calcium 9.4 (8.6-10.3) mg/dL Troponin I < 0.03 (< 0.04) ng/mL B-Natriuretic Peptide (Less than 100) pg/mL 06/16/18 06/17/18 Range/Units 22:46 00:33 WBC (4.3-11.1) K/mcL RBC (3.82-4.97) M/mcL Hgb (11.5-15.4) g/dL Hct (35.3-44.9) % MCV (83.0-100.0) fL MCH (28.0-33.3) pg MCHC (31.6-35.5) g/dL RDW (11.5-14.5) % Plt Count (140-400) K/mcL MPV (9.4-12.4) fL Immature Gran % Seg Neutrophils % % Lymphocytes % % Monocytes % % Eosinophils % Basophils % Neutrophils # (1.6-8.9) K/mcL Lymphocytes # (0.6-4.6) K/mcL Monocytes # (0.0-1.3) K/mcL Eosinophils # Basophils # Reactive Lymphocytes (Not Present) Platelet Estimate (Normal) Sodium (136-145) mEq/L Potassium (3.5-5.1) mEq/L Chloride (98-107) mEq/L Carbon Dioxide (23-29) mEq/L BUN (8-23) mg/dL Creatinine (0.60-1.20) mg/dL Est GFR ( Amer) (> 60) Est GFR (Non-Af Amer) (> 60) BUN/Creatinine Ratio (6-26) Glucose (70-105) mg/dL Calculated Osmolality (280-300) Lactic Acid 0.9 (0.5-2.2) mmol/L Calcium (8.6-10.3) mg/dL Troponin I (< 0.04) ng/mL B-Natriuretic Peptide 11 (Less than 100) pg/mL - Radiology Data Radiology results reviewed: Yes I reviewed the patient's radiology results. Chest X-Ray 06/16/18 22:34 IMPRESSION: Mild left basilar airspace disease, atelectasis or pneumonia D/ / Avani Davis Cha, MD / Avani Davis Cha, MD Interpreting Provider: Avani Davis Cha, MD - EKG Data EKG #1 EKG attestation: Yes I reviewed and interpreted this EKG. EKG results narrative: EKG shows sinus tachycardia with ventricular rate of 101. Low voltage QRS in precordial leads. Possible old anterior NV. No arrhythmia or ectopy. Critical Care Time Critical Care Time: No Total Critical Care Time: 20 Attestation Statement - Attestation Attestation: I, Adam Cho MD, personally evaluated this patient and discussed their management with the resident physician. I reviewed the resident's note and agree with the documented findings, medical decision making, and plan of care. 67 to female persisted emergency department with a complaint of shortness of breath and a productive cough. Symptoms started about a week ago. She was diagnosed with bronchitis and treated with Keflex which she finished yesterday. She states that she has not gotten any better. Since finishing the antibiotic she has gotten worse. There has been some sputum production. No definite fever. No chest pain but chest feels tight. On examination patient is a well-developed obese elderly female in no acute distress. She is alert and oriented 3. There is no cyanosis or diaphoresis. Sounds are decreased but equal bilaterally. There are a few scattered exp iratory wheezes. Bibasilar rales worse on the left. Heart regular rate and rhythm. Abdomen soft and nontender with normal bowel sounds. Labs reviewed. EKG shows sinus tachycardia with a rate of 101. No acute ischemic changes. Chest x-ray shows left basilar atelectasis or pneumonia. The hospitalist, Dr. Coyle, was consulted and accepted admission of the patient.
--- NOTE | 2018-06-17 08:27 | Internal Med History&Physical ---
<Cristi Hernandez - Last Filed: 06/17/18 08:20> Date of Encounter: 06/17/18 Time of Encounter: 08:00 Internal Medicine - H&P: HPI Chief complaint: Coughing shortness of breath Admitted From: Home Plans for Post Hospital Care: Home History of present illness: Ms. Vargas is a 67 year old female past oral history of CLL, obesity hypoventilation, type 2 diabetes insulin-dependent, CAD presents the emergency department last evening with persistent coughing and shortness of breath. She states that she started having these symptoms roughly 1.5 weeks ago was seen in the emergency department treated for bronchitis and urinary symptoms 1 week ago. At that time she is treated with doxycycline completing the antibiotic course and not having any improvement actually felt that she is getting worse more frequent coughing nonproduction. Denied any fevers, chills, muscle aches, myalgia, nausea vomiting diarrhea constipation. Just made symptoms of postnasal drainage, coughing, mild shortness of breath without production. Denies any weight loss, blood in her sputum or stool. She not tried any other medications in the meantime, just felt more fatigued overall. Her symptoms were not improving yesterday and her family member felt she should be evaluated for potential pneumonia. She states that she has roughly 2 episodes of pneumonia that usually start off his bronchitis per year and is hospitalized for these episodes. She has oxygen at home but says she only uses it when necessary when she checks her oxygen occasionally falls below 90% and then she will wear oxygen but no other consistency not with ambulation or not at rest or sleeping. Past Med Surg Social Fam HX - Past Medical History Medical history: cancer, COPD, coronary artery disease, diabetes, hypertension, renal disease Additional medical history: leukemia Psychiatric history: anxiety, depression - Past Surgical History Surgical History: appendectomy, cholecystectomy, knee replacement, THERESE/BSO Additional surgical history: Left total knee replacement - Social History Smoking Status: Never smoker Smokeless Tobacco Status: No Alcohol use: none Drug use: none - Family History Mother Family Member Ethnicity: Non- Living Status: Hx Family Cardiac Disorders: No Hx Family Respiratory Disorders: No Hx Family Cancer: No Hx Family GI Disorders: No Hx Family Endocrine Disorder: Yes (DM) Hx Family Neuromuscular Disorders: No Hx Family Neurologic Disorders: No Hx Family HEENT Disorders: No Hx Family Autoimmune Disorders: No Father Adopted: No Family Member Ethnicity: Non- Living Status: Hx Family Cardiac Disorders: Yes (CA) Hx Family Respiratory Disorders: No Hx Family Cancer: No Hx Family GI Disorders: No Hx Family Endocrine Disorder: No Hx Family Neuromuscular Disorders: No Hx Family Neurologic Disorders: No Hx Family HEENT Disorders: No Hx Family Autoimmune Disorders: No Internal Medicine - H&P: Meds Aspirin 81 mg PO DAILY 04/05/15 [History] Topiramate [Topamax] 25 mg PO BID 08/23/15 [History] Folic Acid 1 mg PO DAILY #30 tablet 09/18/15 [Rx] Primidone [Mysoline] 50 mg PO HS 02/28/16 [History] Ascorbic Acid [Vitamin C] 500 mg PO DAILY 03/06/16 [History] Ferrous Sulfate [Iron] 325 mg PO DAILY 03/06/16 [History] Fluticasone Propionate Nasal [Flonase] 2 spray NS DAILY 11/26/16 [History] Insulin Glargine/Lixisenatide [Soliqua 100 Unit-33 Mcg/ml Pen] 60 unit SQ HS 11/26/16 [History] Tramadol HCl [Ultram] 50 mg PO TID 11/26/16 [History] Cyanocobalamin (Vitamin B-12) [Vitamin B-12] 500 mcg PO DAILY 05/06/17 [History] Linagliptin [Tradjenta] 5 mg PO DAILY 05/06/17 [History] Loratadine [Claritin] 10 mg PO DAILY 05/06/17 [History] Metoprolol XL (24 HR) Succ [Toprol Xl] 25 mg PO DAILY 05/06/17 [History] Pioglitazone [Actos] 15 mg PO DAILY 05/06/17 [History] Acetaminophen [Tylenol] 650 mg PO Q6HR PRN tablet 07/10/17 [Rx] Albuterol Neb [Proventil Neb] 2.5 mg IH Q4H PRN #1 inhsol 09/22/17 [Rx] Omeprazole [PriLOSEC] 40 mg PO DAILY 11/05/17 [History] Docusate [Colace] 100 mg PO DAILY #30 capsule 11/11/17 [Rx] Atorvastatin [Lipitor] 40 mg PO HS 12/06/17 [History] Ergocalciferol (VITAMIN D2) [Vitamin D2] 50,000 unit PO WE 12/06/17 [History] Insulin Regular Human [Humulin R] 0 - 10 units SQ TIDWM 12/06/17 [History] raNITIdine HCl [Zantac] 150 mg PO DAILY 12/06/17 [History] Doxepin [Sinequan] 25 mg PO HS #30 capsule 12/11/17 [Rx] Furosemide [Lasix] 20 mg PO DAILY 01/16/18 [History] Albuterol Sulfate [Albuterol Inhaler] 1 puff IH Q6HR PRN #1 inhaler 06/08/18 [Rx] Loperamide [Imodium] 2 mg PO BID PRN 06/17/18 [History] Metoclopramide [Reglan] 10 mg PO TID PRN 06/17/18 [History] Oxybutynin [Ditropan] 5 mg PO BID 06/17/18 [History] Pregabalin [Lyrica] 100 mg PO TID 06/17/18 [History] Sucralfate [Carafate] 10 ml PO QID 06/17/18 [History] Allergy/AdvReac Type Severity Reaction Status Date / Time metformin Allergy Nausea Verified 06/08/18 21:09 Sulfa (Sulfonamide Allergy Nausea Verified 06/08/18 21:09 Antibiotics) sulfamethoxazole Allergy Nausea Verified 06/08/18 21:09 [From Bactrim] trimethoprim [From Bactrim] Allergy Nausea Verified 06/08/18 21:09 All Systems PM: A 10-system review of systems was performed and is negative for pertinent findings except as documented above in the HPI. Review of systems: Positive for fatigue, cough, chest congestion, postnasal drainage Denies fevers, chills, diaphoresis, weight loss, nausea vomiting diarrhea constipation, chest pain chest pressure, blood in her sputum or bowel movements or burning with urination. - Constitutional Vitals: Temp Pulse Resp BP Pulse Ox 97.7 F 78 16 139/75 96 06/17/18 07:03 06/17/18 07:03 06/17/18 07:03 06/17/18 07:03 06/17/18 07:03 Exam: Gen. alert awake oriented interactive in no acute distress HEENT normocephalic, atraumatic, pupils equal reactive, oral mucosa moist, tongue midline, neck supple some mild lymphadenopathy present inframandibular bilateral. Cardiac regular rate rhythm positive S1-S2 no murmurs or gallops appreciated, radial and posterior tibial pulses 2+ bilateral Respiratory diffuse rhonchi and coughing his story expiratory efforts nonlabored Abdomen obese, soft, nontender, positive bowel signs. Extremities diffuse mild trace edema, patient is moving all 4 extremities spontaneously and no severe effort. Skin : No lesions, cuts or ulcers noted on extremities or in between fingers. No findings of mucositis on oral or nasal cavity. Internal Med - H&P Results - Labs CBC & Chem 7: 06/16/18 22:46 06/16/18 22:46 Labs: Short CBC 06/16/18 Range/Units 22:46 WBC 10.5 (4.3-11.1) K/mcL Hgb 14.5 (11.5-15.4) g/dL Hct 44.4 (35.3-44.9) % Plt Count 153 (140-400) K/mcL Neutrophils # 0.2 L (1.6-8.9) K/mcL BMP 06/16/18 22:46 Sodium 133 L Potassium 3.6 Chloride 96 L Carbon Dioxide 26 BUN 20 Creatinine 1.33 H Glucose 480 H Calcium 9.4 Cardiac Enzymes 06/16/18 Range/Units 22:46 Troponin I < 0.03 (< 0.04) ng/mL - Impressions ITS Impressions Chest X-Ray 06/16/18 22:34 IMPRESSION: Mild left basilar airspace disease, atelectasis or pneumonia D/ / Avani Davis Cha, MD / Avani Davis Cha, MD Interpreting Provider: Avani Davis Cha, MD - Assessment and plan (1) Community acquired pneumonia Current Visit: Yes Status: Acute Assessment and plan: Patient admitted with left lower lobe pneumonia, diffuse rhonchi on auscultation. - Vitals stable, patient currently requiring 2 L nasal cannula oxygen but this may be reduced as her oxygen saturations are greater than 96%. - Currently no tachycardia, no hypo-or hypertension and no tachypnea. - Patient, recently on doxycycline and Keflex for bronchitis and UTI. - Given her current neutrophil count 0.2 I will start her on both Levaquin and Zosyn and repeat a neutrophil count as this may be a lab error. Given her history of CLL, potential risks for neutropenia but currently not on any chemotherapy or radiation. - We will continue with dual nebs and start a mucolytic - Wean oxygen as tolerated Qualifiers: Laterality: left Lung location: lower lobe of lung Qualified Code(s): J18.1 - Lobar pneumonia, unspecified organism (2) Type 2 diabetes mellitus Current Visit: Yes Status: Chronic Assessment and plan: Patient is a known type II diabetic with insulin-dependent, last hemoglobin A1c 6.8 05/24/2018. 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 Qualifiers: Coronary Disease-Associated Artery/Lesion type: [place] artery Associated angina: without angina Qualified Code(s): I25.10 - Atherosclerotic heart disease of [place] coronary artery without angina pectoris (4) LENORE (acute kidney injury) Current Visit: Yes Status: Acute Assessment and plan: Patient demonstrates some mild acute kidney injury with a creatinine of 1.33 - Patient has known stage III chronic kidney disease/borderline. - We will start normal saline 100 mL's per hour 2 bags - Encourage oral hydration - Repeat renal function with a.m. labs - Avoid nephrotoxic medications and renally dose and Vioxx. (5) CLL (chronic lymphocytic leukemia) Current Visit: No Status: Chronic Assessment and plan: Patient has a known history of CLL, last evaluated by oncology in May 2018. Has never taken chemotherapy for her disease. Peripheral blood flow cytometry and Fish panel on 03/30/2015 confirmed CD5 and CD23 positive CLL. - Lymphocyte count currently appropriate. - No B symptoms like fever chills weight loss. No nausea vomiting. Shortness of breath with exertion. Current admission with pneumonia and bronchitis. (6) DVT prophylaxis Current Visit: Yes Status: Acute Assessment and plan: Subcutaneous heparin - Time Spent With Patient Total time spent is greater than 50% in coordination of care (as documented) at patient's floor/unit and/or counseling patient: <Paul Robledo - Last Filed: 06/17/18 18:48> Date of Encounter: 06/17/18 Internal Medicine - H&P: HPI History of present illness: Ms. Vargas is a 67 year old female All Systems PM: A 10-system review of systems was performed and is negative for pertinent findings except as documented above in the HPI. - Constitutional Vitals: Temp Pulse Resp BP Pulse Ox 98.5 F 82 16 144/73 96 06/17/18 16:38 06/17/18 16:38 06/17/18 16:38 06/17/18 16:38 06/17/18 16:38 Internal Med - H&P Results - Labs CBC & Chem 7: 06/17/18 16:10 06/17/18 09:27 Labs: Short CBC 06/16/18 06/17/18 Range/Units 22:46 16:10 WBC 10.5 7.1 (4.3-11.1) K/mcL Hgb 14.5 12.3 D (11.5-15.4) g/dL Hct 44.4 37.2 (35.3-44.9) % Plt Count 153 126 L (140-400) K/mcL Neutrophils # 0.2 L 0.1 L (1.6-8.9) K/mcL BMP 06/16/18 06/17/18 22:46 09:27 Sodium 133 L 134 L Potassium 3.6 3.6 Chloride 96 L 97 L Carbon Dioxide 26 29 BUN 20 20 Creatinine 1.33 H 1.01 Glucose 480 H 451 H Calcium 9.4 8.6 Cardiac Enzymes 06/16/18 Range/Units 22:46 Troponin I < 0.03 (< 0.04) ng/mL Liver Function 06/17/18 Range/Units 09:27 Total Bilirubin 0.4 (0.3-1.0) mg/dL AST 8 L (13-39) Units/L ALT 7 (7-52) Units/L Alkaline Phosphatase 74 (34-104) Units/L Albumin 3.8 (3.5-5.7) g/dL - Impressions ITS Impressions Chest X-Ray 06/16/18 22:34 IMPRESSION: Mild left basilar airspace disease, atelectasis or pneumonia D/ / Avani Davis Cha, MD / Avani Davis Cha, MD Interpreting Provider: Avani Davis Cha, MD - Assessment and plan (1) Pneumonia Current Visit: No Status: Suspected Qualifiers: Pneumonia type: due to Pneumococcus Laterality: left Lung location: lower lobe of lung Qualified Code(s): J13 - Pneumonia due to Streptococcus p neumoniae (2) Type 2 diabetes mellitus Current Visit: Yes Status: Chronic Qualifiers: Diabetes mellitus correction insulin use: with intermediate project manager use Diabetes mellitus complication status: with kidney complications Diabetes mellitus complication detail: with chronic kidney disease Chronic kidney disease stage: stage 3 (moderate) Qualified Code(s): E11.22 - Type 2 diabetes mellitus with diabetic chronic kidney disease; N18.3 - Chronic kidney disease, stage 3 (moderate); 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 transplanted heart: [place] heart Associated angina: without angina Qualified Code(s): I25.10 - Atherosclerotic heart disease of [place] coronary artery without angina pectoris (4) HTN (hypertension) Current Visit: No Status: Chronic Qualifiers: Hypertension type: essential hypertension (5) CLL (chronic lymphocytic leukemia) Current Visit: No Status: Chronic (6) Neutropenia Current Visit: Yes Status: Acute Qualifiers: Neutropenia type: other Qualified Code(s): D70.8 - Other neutropenia - Time Spent With Patient Total time spent is greater than 50% in coordination of care (as documented) at patient's floor/unit and/or counseling patient: - Attending Attestation I examined this patient and my medical decision-making was reviewed with the Resident Physician on 06/17/18. I agree with the documented findings, disposition and treatment plan as described except to the extent set forth below. Ms Vargas is 67 year old female with hx of COPD and CLL presented to ED due to worsening dyspnea. Had been seen as outpatient and treated with doxycycline. Symptoms recurred and worsened. No fever. Cough persistent. No myalgias. No headache. Due to persistent symptoms she came to ED and will be admitted. Currently she is having significant back pain which she says is chronic. Exam Alert Mod distress due to back pain Mucus membranes dry Heart reg Scant end exp wheeze bilaterally Abd soft and nontender Moves all extremities ANC 200 I/P 1. Pneumonia - community acquired. Failed treatment with doxycycline. Start IV abx. 2. CLL with neutropenia - onc consult tomorrow. 3. DM with CKD 3 4. CAD 5. Chronic back pain - on Tramadol Further diagnoses and plan as above.
[2018-06-17] MEDS ORDERED: Naloxone 0.4 MG/ML INJ IVP PRN (08:51)
[2018-06-17] MEDS ORDERED: Acetaminophen 325 MG TABLET PO PRN (08:51)
[2018-06-17] MEDS ORDERED: Dextrose Gel 15 GM/37.5 ML TUBE PO PRN ×2 (08:53)
[2018-06-17] MEDS ORDERED: *HR* Dextrose 50 % in Water (Syg) 50 ML SYRINGE IVP PRN (08:53)
[2018-06-17] MEDS ORDERED: D5% in Water 1,000 ML IVC PRN (08:53)
[2018-06-17] MEDS ORDERED: Ipratropium/Albuterol Neb 3 ML IH PRN (08:57)
[2018-06-17 10:05] LABS: Alanine Aminotransferase 7 Units/L (7-52); Albumin 3.8 g/dL (3.5-5.7); Albumin/Globulin Ratio 2.5 (1.1-2.2); Alkaline Phosphatase 74 Units/L (34-104); Aspartate Amino Transferase 8 Units/L (13-39); BUN/Creatinine Ratio 20 (6-26); Bilirubin,Total 0.4 mg/dL (0.3-1.0); Blood Urea Nitrogen 20 mg/dL (8-23); Calcium 8.6 mg/dL (8.6-10.3); Carbon Dioxide 29 mEq/L (23-29); Chloride 97 mEq/L (98-107); Globulin 1.5 g/dL (2.4-3.5); Glucose 451 mg/dL (70-105); Osmolality,Calculated 300 (280-300); Potassium 3.6 mEq/L (3.5-5.1); Sodium 134 mEq/L (136-145); Total Protein 5.3 g/dL (6.4-8.9); eGFR For Non-African Americans 55 (> 60)
[2018-06-17 10:08] LABS: Prothrombin Time 11.8 Seconds (9.4-12.1)
[2018-06-17] MEDS: Aspirin 81 MG TAB.CHEW PO SCH (10:46)
[2018-06-17] MEDS: Metoprolol XL (24 HR) Succ 25 MG TAB.ER.24H PO SCH (10:46)
[2018-06-17] MEDS: Levofloxacin 750 MG/150 ML 750 MG/150 ML BAG IVPB SCH (10:47)
[2018-06-17] MEDS: 0.9 % Sodium Chloride 1,000 ML IVC SCH (10:47)
[2018-06-17] MEDS: Piperacillin/Tazobactam 3.375 GM in 0.9 % Sodium Chloride Mini Bag 100 ML IVPB SCH ×2 (10:48→18:06)
[2018-06-17] MEDS: Insulin DETEMIR 100 UNIT/ML X5UNITS SQ SCH ×2 (10:49→22:19)
[2018-06-17] MEDS: traMADol 50 MG TABLET PO SCH ×2 (13:39→20:10)
[2018-06-17] MEDS: *HR* Heparin 5,000 UNIT/ML VIAL SQ SCH ×2 (13:40→20:11)
--- NOTE | 2018-06-17 16:12 | Electrocardiograph Report ---
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
[2018-06-17 16:28] LABS: Basophils % 0.3 %; Eosinophils # 0.1 K/mcL (0.0-0.6); Eosinophils % 1.1 %; Hematocrit 37.2 % (35.3-44.9); Lymphocytes # 6.3 K/mcL (0.6-4.6); Mean Corpuscular HGB Conc 33.1 g/dL (31.6-35.5); Mean Corpuscular Hemoglobin 29.2 pg (28.0-33.3); Mean Corpuscular Volume 88.4 fL (83.0-100.0); Mean Platelet Volume 11.9 fL (9.4-12.4); Monocytes # 0.6 K/mcL (0.0-1.3); Monocytes % 7.9 %; Neutrophils # 0.1 K/mcL (1.6-8.9); Nucleated Red Blood Cells 0.7 /100 WBC (0); Platelet Count 126 K/mcL (140-400); Red Blood Count 4.21 M/mcL (3.82-4.97); Red Cell Distribution Width 13.4 % (11.5-14.5); Segmented Neutrophils % 1.7 %
[2018-06-17 16:33] LABS: Hemoglobin 12.3 g/dL (11.5-15.4)
[2018-06-17 16:54] LABS: Platelet Estimate Normal (Normal); Reactive Lymphocytes Present (Not Present); Smudge Cells Present (Not Present)
[2018-06-17] MEDS: *HR* HYDROcodone/Acet 5/325 mg TABLET PO PRN (21:31)
[2018-06-17] MEDS: Ipratropium/Albuterol Neb 3 ML IH SCH ×2 (22:06→23:48)
[2018-06-17] MEDS: Insulin LISPRO 300 UNITS/3 ML VIAL SQ SCH (22:19)
[2018-06-18] MEDS: *HR* OxyCODONE/APAP 7.5/325 TABLET PO PRN ×4 (01:35→20:07)
[2018-06-18] MEDS: Piperacillin/Tazobactam 3.375 GM in 0.9 % Sodium Chloride Mini Bag 100 ML IVPB SCH ×3 (01:35→17:23)
[2018-06-18] MEDS: *HR* HYDROcodone/Acet 5/325 mg TABLET PO PRN ×3 (03:33→17:22)
[2018-06-18] MEDS: 0.9 % Sodium Chloride 1,000 ML IVC SCH (03:39)
[2018-06-18] MEDS ORDERED: *HR* HYDROcodone/Acet 5/325 mg TABLET PO ONE (03:51)
[2018-06-18] MEDS: Ipratropium/Albuterol Neb 3 ML IH SCH ×7 (04:51→23:55)
[2018-06-18 05:53] LABS: Basophils % 0.3 %; Eosinophils # 0.1 K/mcL (0.0-0.6); Hematocrit 38.6 % (35.3-44.9); Hemoglobin 13.2 g/dL (11.5-15.4); Immature Granulocytes % 0.1 % (0-4); Lymphocytes # 8.7 K/mcL (0.6-4.6); Lymphocytes % 89.4 %; Mean Corpuscular HGB Conc 34.2 g/dL (31.6-35.5); Mean Corpuscular Hemoglobin 29.1 pg (28.0-33.3); Mean Corpuscular Volume 85.2 fL (83.0-100.0); Mean Platelet Volume 12.4 fL (9.4-12.4); Monocytes # 0.8 K/mcL (0.0-1.3); Monocytes % 8.1 %; Neutrophils # 0.1 K/mcL (1.6-8.9); Platelet Count 134 K/mcL (140-400); Red Blood Count 4.53 M/mcL (3.82-4.97); Red Cell Distribution Width 13.3 % (11.5-14.5); Segmented Neutrophils % 1.1 %
[2018-06-18] MEDS: *HR* Heparin 5,000 UNIT/ML VIAL SQ SCH ×2 (06:01→13:36)
[2018-06-18] MEDS: Ondansetron 4 MG/2 ML VIAL IVP PRN ×4 (06:02→22:43)
[2018-06-18 06:19] LABS: Platelet Estimate Normal (Normal); Reactive Lymphocytes Present (Not Present)
[2018-06-18 07:26] LABS: Alanine Aminotransferase 8 Units/L (7-52); Albumin 4.2 g/dL (3.5-5.7); Albumin/Globulin Ratio 2.2 (1.1-2.2); Alkaline Phosphatase 73 Units/L (34-104); Aspartate Amino Transferase 12 Units/L (13-39); BUN/Creatinine Ratio 16 (6-26); Bilirubin,Total 0.6 mg/dL (0.3-1.0); Blood Urea Nitrogen 17 mg/dL (8-23); Calcium 9.4 mg/dL (8.6-10.3); Carbon Dioxide 15 mEq/L (23-29); Chloride 107 mEq/L (98-107); Globulin 1.9 g/dL (2.4-3.5); Glucose 199 mg/dL (70-105); Osmolality,Calculated 301 (280-300); Potassium 4.3 mEq/L (3.5-5.1); Sodium 142 mEq/L (136-145); Total Protein 6.1 g/dL (6.4-8.9); eGFR For Non-African Americans 50 (> 60)
[2018-06-18] MEDS: Aspirin 81 MG TAB.CHEW PO SCH (07:57)
[2018-06-18] MEDS: Metoprolol XL (24 HR) Succ 25 MG TAB.ER.24H PO SCH (07:57)
[2018-06-18] MEDS: Insulin LISPRO 300 UNITS/3 ML VIAL SQ SCH ×4 (07:58→21:58)
[2018-06-18] MEDS: Insulin DETEMIR 100 UNIT/ML X5UNITS SQ SCH ×2 (07:59→20:07)
--- NOTE | 2018-06-18 09:46 | Oncology Inp Consult Note ---
Addendum entered and electronically signed by Ventura Lopez MD 06/18/18 22:17: Billing code:[id number] Original Note: <Lucas England - Last Filed: 06/18/18 17:51> Date of Encounter: 06/18/18 Time of Encounter: 09:37 Assessment and Plan (1) Neutropenia Status: Acute Assessment and plan: 67F with History of CLL admitted for community acquired PNA. She had symptoms of cough, shortness of breath, fevers for a few weeks and failed outpatient treatment with antibiotics. She reports B symptoms of fevers, chills, night sweats, weight loss of 30 pounds over two weeks (unsure how accurate this is as patient appears to be a poor historian). Neutrophils 0.1. No other concerning cytopenias otherwise. Neutropenias appear to be acute, and present during this hospitalization. Etiology unclear at this time. Differentials include acute infection from pneumonia, recent outpatient antibiotic use, possibly from underlying CLL. high suspicion that this is secondary to CAP. Plan: peripheral path smear pending patient is not a candidate for neupogen, will currently hold off on this for now and continue to monitor. Likely that her neutropenia is secondary to acute infection. Qualifiers: Neutropenia type: unspecified Qualified Code(s): D70.9 - Neutropenia, unspecified (2) CLL (chronic lymphocytic leukemia) Status: Chronic Assessment and plan: History of Stage I CLL that did not require therapy. She follows with Dr. Estes at [facility]. She was diagnosed with CLL around 1999. Peripheral blood flow cytometry and Fish panel on 03/30/2015 confirmed CD5 and CD23 positive CLL. Fish normal results for 11, 12,14, 17 chronosomones and no 11:14 translocation. (3) Abdominal pain Status: Acute Assessment and plan: patient complaining of significant abdominal pain today, likely secondary to gas/constipation Plan: simethicone miralax dulcolax suppository pain management per primary team. Qualifiers: Abdominal location: generalized Qualified Code(s): R10.84 - Generalized abdominal pain - Data of Consult Patient: known to practice within the last 3 years Consult date: 06/18/18 Requesting Physician: Paul Robledo DO Primary Care Provider: Mariaelena Vasquez CNP - Consult Narrative Reason for consult: neutropenia History of present illness: 67-year-old female with past medical history of CLL, OHS, type II diabetes, coronary artery disease, COPD (wears oxygen at home as needed). Patient was admitted yesterday for community acquired pneumonia that failed outpatient treatment with antibiotics. Patient complains of persistent cough, shortness of breath, fever, chills that have been going on for about one week. As outpatient, she was on therapy with doxycycline Keflex. She was also treated for UTI as outpatient as well. Patient is a poor historian and is reluctant to answer many questions. She sees Dr. Estes as outapatient for her CLL, that has not required any treatment in the past. patient reports B symptoms of fevers, chills, weight loss of 30 pounds over the past few weeks. She currently reports chest pain with deep breathing and shortness of breath. Past Med Surg Social Fam HX - Past Medical History Medical history: cancer, COPD, coronary artery disease, diabetes, hypertension, renal disease Additional medical history: leukemia Psychiatric history: anxiety, depression - Past Surgical History Surgical History: appendectomy, cholecystectomy, knee replacement, THERESE/BSO Additional surgical history: Left total knee replacement - Social History Smoking Status: Never smoker Smokeless Tobacco Status: No Alcohol use: none Drug use: none - Family History Mother Family Member Ethnicity: Non- Living Status: Hx Family Cardiac Disorders: No Hx Family Respiratory Disorders: No Hx Family Cancer: No Hx Family GI Disorders: No Hx Family Endocrine Disorder: Yes (DM) Hx Family Neuromuscular Disorders: No Hx Family Neurologic Disorders: No Hx Family HEENT Disorders: No Hx Family Autoimmune Disorders: No Father Adopted: No Family Member Ethnicity: Non- Living Status: Hx Family Cardiac Disorders: Yes ([place]) Hx Family Respiratory Disorders: No Hx Family Cancer: No Hx Family GI Disorders: No Hx Family Endocrine Disorder: No Hx Family Neuromuscular Disorders: No Hx Family Neurologic Disorders: No Hx Family HEENT Disorders: No Hx Family Autoimmune Disorders: No Medications and Allergies Aspirin 81 mg PO DAILY 04/05/15 [History] Topiramate [Topamax] 25 mg PO BID 08/23/15 [History] Folic Acid 1 mg PO DAILY #30 tablet 09/18/15 [Rx] Primidone [Mysoline] 50 mg PO HS 02/28/16 [History] Ascorbic Acid [Vitamin C] 500 mg PO DAILY 03/06/16 [History] Ferrous Sulfate [Iron] 325 mg PO DAILY 03/06/16 [History] Fluticasone Propionate Nasal [Flonase] 2 spray NS DAILY 11/26/16 [History] Insulin Glargine/Lixisenatide [Soliqua 100 Unit-33 Mcg/ml Pen] 60 unit SQ HS 11/26/16 [History] Tramadol HCl [Ultram] 50 mg PO TID 11/26/16 [History] Cyanocobalamin (Vitamin B-12) [Vitamin B-12] 500 mcg PO DAILY 05/06/17 [History] Linagliptin [Tradjenta] 5 mg PO DAILY 05/06/17 [History] Loratadine [Claritin] 10 mg PO DAILY 05/06/17 [History] Metoprolol XL (24 HR) Succ [Toprol Xl] 25 mg PO DAILY 05/06/17 [History] Pioglitazone [Actos] 15 mg PO DAILY 05/06/17 [History] Acetaminophen [Tylenol] 650 mg PO Q6HR PRN tablet 07/10/17 [Rx] Albuterol Neb [Proventil Neb] 2.5 mg IH Q4H PRN #1 inhsol 09/22/17 [Rx] Omeprazole [PriLOSEC] 40 mg PO DAILY 11/05/17 [History] Docusate [Colace] 100 mg PO DAILY #30 capsule 11/11/17 [Rx] Atorvastatin [Lipitor] 40 mg PO HS 12/06/17 [History] Ergocalciferol (VITAMIN D2) [Vitamin D2] 50,000 unit PO WE 12/06/17 [History] Insulin Regular Human [Humulin R] 0 - 10 units SQ TIDWM 12/06/17 [History] raNITIdine HCl [Zantac] 150 mg PO DAILY 12/06/17 [History] Doxepin [Sinequan] 25 mg PO HS #30 capsule 12/11/17 [Rx] Furosemide [Lasix] 20 mg PO DAILY 01/16/18 [History] Albuterol Sulfate [Albuterol Inhaler] 1 puff IH Q6HR PRN #1 inhaler 06/08/18 [Rx] Loperamide [Imodium] 2 mg PO BID PRN 06/17/18 [History] Metoclopramide [Reglan] 10 mg PO TID PRN 06/17/18 [History] Oxybutynin [Ditropan] 5 mg PO BID 06/17/18 [History] Pregabalin [Lyrica] 100 mg PO TID 06/17/18 [History] Sucralfate [Carafate] 10 ml PO QID 06/17/18 [History] Allergy/AdvReac Type Severity Reaction Status Date / Time metformin Allergy Nausea Verified 06/08/18 21:09 Sulfa (Sulfonamide Allergy Nausea Verified 06/08/18 21:09 Antibiotics) sulfamethoxazole Allergy Nausea Verified 06/08/18 21:09 [From Bactrim] trimethoprim [From Bactrim] Allergy Nausea Verified 06/08/18 21:09 All systems: reviewed and no additional remarkable complaints except as stated Oncology - Exam - Constitutional General appearance: obese Exam: General: alert and oriented x3, appears to be in mild respiratory distress. obese. Appears ill. CV: RRR, no murmurs, rubs, gallops. Normal S1, S2 noted. no edema. HEENT: anterior cervical lymphadenopathy noted. Respiratory: coarse breath sounds noted throughout in all lung [place]. GI: soft, non distended, non tender, hypoactive bowel sounds present. no organomegaly noted. Extremities: no cyanosis or edema noted. Consult Discharge Plan - Plan Referrals: Mariaelena Vasquez CNP [Primary Care Provider] - 06/25/18 9:00 am Inpatient Charges Provider: Dr. Jania Lopez <Ventura Lopez - Last Filed: 06/18/18 22:04> Date of Encounter: 06/18/18 - Data of Consult Requesting Physician: Paul Robledo DO Primary Care Provider: Mariaelena Vasquez CNP - Attending Attestation I have seen and examined Ms. Vargas and agree with Dr. England' assessment. She has CLL and has been admitted with presumed pneumonia. Upon my evaluation, she is calling out in pain. She has been nauseated with emesis. No recent BM per nursing. I am able to calm her and exam her lying flat. She has abdominal pain to deep palpation with possible mild rebound. No guarding. Tympanic throughout with positive bowel sounds. Review of CT imaging without process. CO2 normal. Clinically I wonder if constipated/obstipated. Would recommend dulcolax/miralax and simethicone. No evidence of CLL progression. She is neutropenic likley related to underlying pneumonia/viral process. ANC normal just 3 weeks ago. No new adenopathy or change. Will monitor neutropenia, but no need for neupogen.
--- NOTE | 2018-06-18 10:50 | Internal Med Progress Note ---
<Kalin Bowser - Last Filed: 06/18/18 17:27> Hospitalist Progress Note - Encounter Date of Encounter: 06/18/18 Time of Encounter: 10:36 - Subjective Interval History: Patient is 67-year-old female presenting to [facility] ED on 06/17/2018 for dyspnea, nonproductive cough, and nasal drainage. Patient has a PMHx of CLL, COPD, CAD, DM, HTN and CKD. Patient was recently treated for bronchitis 1.5 weeks ago by her PCP with doxycycline. Patient states that she finished antibiotic course and continued to feel poorly with gradual worsening of her symptoms. Patient states that she has approximately 2 episodes of bronchitis per year that typically deteriorate into pneumonia. Patient wears when necessary oxygen at home. -Chest x-ray performed in the ED shows "mild left basilar airspace disease, atelectasis or pneumonia." -Patient also found to be severely neutropenic with neutral count on CBC at 0.1 Upon initial encounter this a.m. patient is reclined in hospital bed, awake, alert, patient appears to have some level of confusion and is either unable or unwilling to provide much information regarding past medical/surgical histories, or review of systems. Patient currently admits to nausea/abdominal pain, states that she has had intermittent chest pain/shortness of breath, and admits to chronic neuropathy and back pain. Patient denies headache, vision change/tinnitus, dysphagia/odynophagia/sore throat, vomiting, diarrhea/constipation. - Exam Vitals: Temp Pulse Resp BP Pulse Ox 98.0 F 89 18 136/75 90 06/18/18 07:49 06/18/18 07:49 06/18/18 07:49 06/18/18 07:49 06/18/18 07:49 Exam: Constitutional: Patient sitting upright in bed, awake/alert, appears confused, poor historian, either cannot or will not provide consistent answers to questioning Neurological: No overt focal neurological deficits Cardiovascular: 1+ edema noted in 4 extremities (stated to be normal by patient) RRR, no murmurs, gallops, or rubs appreciated Respiratory: Diffuse rhonchi to auscultation, no wheezes or stridor noted Abdomen: Diffusely tender to palpation, bowel sounds present, abdomen is soft, nondistended, no rebound or guarding appreciated. Skin: Non diaphoretic, no rashes, or bleeding noted Psychiatric: Patient is slow to respond to questioning, and appears to have some level of confusion. - Assessment and Plan (1) Community acquired pneumonia Current Visit: Yes Status: Acute Assessment and Plan: -Patient found to have left lower lobe pneumonia on chest x-ray performed on 06/17/2017 Patient recently finished a course of doxycycline for bronchitis Patient recently completed a course of Keflex for UTI Patient started on Levaquin and Zosyn due to neutropenia Patient placed on scheduled DuoNeb nebs every 4 hour and guaifenesin 600 mg by mouth twice a day Patient is currently afebrile, non-tachycardic, nontachypneic, satting at 98% on 2 L via nasal cannula (2) CLL (chronic lymphocytic leukemia) Current Visit: No Status: Chronic Assessment and Plan: Patient with known past medical history of CLL Currently not on chemotherapy or radiation treatment Currently White blood cell count at 9.7. Neutrophils 0.1 Hematology/oncology consulted and is following CTA plus CT abdomen and pelvis with contrast will be performed due to patient history of CLL in the setting of neutropenia, and acidosis, with patient expressing chest pain and nausea/abdominal pain. (3) CKD (chronic kidney disease), stage III Current Visit: No Status: Acute Assessment and Plan: Patient has a known history of chronic kidney disease Patient's creatinine is currently 0.96-trended down from 1.33 on June 16 Estimated GFR currently at 58 Patient has received 2 L of sodium chloride at 100 mils per hour since admission (discontinued at 0459 on June 18) Continue by mouth hydration Daily BMP Avoid nephrotoxic agents - renally dose medications (4) Type 2 diabetes mellitus Current Visit: Yes Status: Chronic Assessment and Plan: Patient with past medical history of type 2 [id number] Last hemoglobin A1c of 6.8 on 05/24/2018 Patient with 1.5 week history of oral steroids and antibiotics for bronchitis Glucose is currently 214 without anion gap Patient placed on corrective low-dose sliding scale insulin with protocol (5) CAD (coronary artery disease) Current Visit: No Status: Chronic Assessment and Plan: Patient with known past medical history of CAD We will continue home medications (6) Gastroparesis Current Visit: No Status: Acute (7) Back pain Current Visit: No Status: Acute Assessment and Plan: Patient c/o severe 10/10 pain in thoracic and lumber spine as well as pain in chest and abdomen CTA + CT Abd./Pelvis showed middle lobe atelectasis and diffuse adenopathy without other acute pathology Patient on Oxycodone PRN for severe pain MRI wo con in thoracic and lumber spine ordered Patient pain appears to be provoked by agitation - 1mg Lorazepam Q2HR PRN for anxiety/agitation ordered DVT Prophylaxis: 5,000 units subcutaneous heparin every 8 hour - Time Spent with Patient Total time spent is greater than 50% in coordination of care (as documented) at patient's floor/unit and/or counseling patient: Internal Medicine: Result - Labs CBC & Chem 7: 06/18/18 04:10 06/18/18 12:04 Labs: Short CBC 06/17/18 06/18/18 Range/Units 16:10 04:10 WBC 7.1 9.7 (4.3-11.1) K/mcL Hgb 12.3 D 13.2 (11.5-15.4) g/dL Hct 37.2 38.6 (35.3-44.9) % Plt Count 126 L 134 L (140-400) K/mcL Neutrophils # 0.1 L 0.1 L (1.6-8.9) K/mcL BMP 06/18/18 04:10 Sodium 142 Potassium 4.3 Chloride 107 Carbon Dioxide 15 L BUN 17 Creatinine 1.09 Glucose 199 H Calcium 9.4 Liver Function 06/18/18 Range/Units 04:10 Total Bilirubin 0.6 (0.3-1.0) mg/dL AST 12 L (13-39) Units/L ALT 8 (7-52) Units/L Alkaline Phosphatase 73 (34-104) Units/L Albumin 4.2 (3.5-5.7) g/dL - ABG Interpretation ABG results: PT/INR, D-dimer PT 11.8 Seconds (9.4-12.1) 06/17/18 09:27 Consult Discharge Plan - Plan Referrals: Mariaelena Vasquez, RESEARCH PROGRAMMER [Primary Care Provider] - 06/25/18 9:00 am <Paul Robledo - Last Filed: 06/18/18 17:38> Hospitalist Progress Note - Encounter Date of Encounter: 06/18/18 - Exam Vitals: Temp Pulse Resp BP Pulse Ox 97.2 F L 89 18 146/84 96 06/18/18 16:23 06/18/18 16:23 06/18/18 16:23 06/18/18 16:23 06/18/18 16:23 - Assessment and Plan (1) Pneumonia Current Visit: No Status: Suspected (2) Type 2 diabetes mellitus Current Visit: Yes Status: Chronic (3) CAD (coronary artery disease) Current Visit: No Status: Chronic (4) HTN (hypertension) Current Visit: No Status: Chronic (5) CLL (chronic lymphocytic leukemia) Current Visit: No Status: Chronic (6) Neutropenia Current Visit: Yes Status: Acute (7) Gastroparesis Current Visit: No Status: Chronic - Time Spent with Patient Total time spent is greater than 50% in coordination of care (as documented) at patient's floor/unit and/or counseling patient: Internal Medicine: Result - Labs CBC & Chem 7: 06/18/18 04:10 06/18/18 12:04 Labs: Short CBC 06/18/18 Range/Units 04:10 WBC 9.7 (4.3-11.1) K/mcL Hgb 13.2 (11.5-15.4) g/dL Hct 38.6 (35.3-44.9) % Plt Count 134 L (140-400) K/mcL Neutrophils # 0.1 L (1.6-8.9) K/mcL BMP 06/18/18 06/18/18 04:10 12:04 Sodium 142 138 Potassium 4.3 3.3 L Chloride 107 104 Carbon Dioxide 15 L 25 BUN 17 14 Creatinine 1.09 0.96 Glucose 199 H 214 H Calcium 9.4 8.8 Liver Function 06/18/18 Range/Units 04:10 Total Bilirubin 0.6 (0.3-1.0) mg/dL AST 12 L (13-39) Units/L ALT 8 (7-52) Units/L Alkaline Phosphatase 73 (34-104) Units/L Albumin 4.2 (3.5-5.7) g/dL - ABG Interpretation ABG results: PT/INR, D-dimer PT 11.8 Seconds (9.4-12.1) 06/17/18 09:27 - Impressions Impressions Abdomen/Pelvis CT 06/18/18 12:00 IMPRESSION: 1. No evidence for acute pulmonary embolism. 2. No lung parenchymal nodules of significance. Bandlike subsegmental atelectasis along the minor fissure in the middle lobe is new. 3. Redemonstration of diffuse lymphadenopathy including axillary, mediastinal, upper abdominal, retroperitoneal and pelvic lymphadenopathy. No major change. Some of the larger nodes show slight decrease in size. D/ / Mikey Albarado MD / Mikey Albarado MD Interpreting Provider: Mikey Albarado MD Chest CTA 06/18/18 12:10 IMPRESSION: 1. No evidence for acute pulmonary embolism. 2. No lung parenchymal nodules of significance. Bandlike subsegmental atelectasis along the minor fissure in the middle lobe is new. 3. Redemonstration of diffuse lymphadenopathy including axillary, mediastinal, upper abdominal, retroperitoneal and pelvic lymphadenopathy. No major change. Some of the larger nodes show slight decrease in size. D/ / Mikey Albarado MD / Mikey Albarado MD Interpreting Provider: Mikey Albarado MD - Attending Attestation I examined this patient and my medical decision-making was reviewed with the Resident Physician on 06/18/18. I agree with the documented findings, disposition and treatment plan as described except to the extent set forth below. Ms Vargas is currently admitted for pneumonia, COPD and back pain. She remains moderate to high risk due to potential for worsening clinical status. Ms Vargas is having pain - abd, back, chest, - it varies and is not consistent. No fever or chills. Still with cough. No diarrhea. Exam alert Moderate distress due to pain/nausea Mucus membranes dry Heart reg and not tachy Decreased breath sounds with rhonchi and wheeze Abd soft and tender in epigastric area - no peritoneal signs No edema I/P 1. Pneumonia - on abx 2. Pain - very difficult to get a good history. Check further xray 3. Gastroparesis Further diagnoses and plan as above. <Kalin Bowser - Last Filed: 06/18/18 17:27> (1) Community acquired pneumonia Qualifiers: Laterality: left Lung location: lower lobe of lung Qualified Code(s): J18.1 - Lobar pneumonia, unspecified organism (4) Type 2 diabetes mellitus Qualifiers: Diabetes mellitus residential insulin use: with printing technician use Diabetes mellitus complication status: with kidney complications Diabetes mellitus complication detail: with chronic kidney disease Chronic kidney disease stage: stage 3 (moderate) Qualified Code(s): E11.22 - Type 2 diabetes mellitus with diabetic chronic kidney disease; N18.3 - Chronic kidney disease, stage 3 (moderate); Z79.4 - shelter (current) use of insulin (5) CAD (coronary artery disease) Qualifiers: Coronary Disease-Associated Artery/Lesion type: [place] artery [place] vs. transplanted heart: [place] heart Associated angina: without angina Qualified Code(s): I25.10 - Atherosclerotic heart disease of [place] coronary artery without angina pectoris (7) Back pain Qualifiers: Back pain location: thoracic back pain Chronicity: acute Back pain laterality: midline Qualified Code(s): M54.6 - Pain in thoracic spine <Paul Robledo - Last Filed: 06/18/18 17:38> (1) Pneumonia Qualifiers: Pneumonia type: due to Pneumococcus Laterality: left Lung location: lower lobe of lung Qualified Code(s): J13 - Pneumonia due to Streptococcus pneumoniae (2) Type 2 diabetes mellitus Qualifiers: Diabetes mellitus residential insulin use: with residential use Diabetes mellitus complication status: with kidney complications Diabetes mellitus complication detail: with chronic kidney disease Chronic kidney disease stage: stage 3 (moderate) Qualified Code(s): E11.22 - Type 2 diabetes mellitus with diabetic chronic kidney disease; N18.3 - Chronic kidney disease, stage 3 (moderate); Z79.4 - label stamper (current) use of insulin (3) CAD (coronary artery disease) Qualifiers: Coronary Disease-Associated Artery/Lesion type: [place] artery [place] vs. transplanted heart: [place] heart Associated angina: without angina Qualified Code(s): I25.10 - Atherosclerotic heart disease of [place] coronary artery without angina pectoris (4) HTN (hypertension) Qualifiers: Hypertension type: essential hypertension (6) Neutropenia Qualifiers: Neutropenia type: unspecified Qualified Code(s): D70.9 - Neutropenia, unspecified
[2018-06-18] MEDS ORDERED: Isovue-370 500 ML INFUS..BTL IV ONE ×2 (11:16→12:10)
[2018-06-18 12:33] LABS: BUN/Creatinine Ratio 15 (6-26); Blood Urea Nitrogen 14 mg/dL (8-23); Calcium 8.8 mg/dL (8.6-10.3); Carbon Dioxide 25 mEq/L (23-29); Chloride 104 mEq/L (98-107); Glucose 214 mg/dL (70-105); Lipase 14 Units/L (11-82); Osmolality,Calculated 293 (280-300); Potassium 3.3 mEq/L (3.5-5.1); Sodium 138 mEq/L (136-145); eGFR For Non-African Americans 58 (> 60)
[2018-06-18] MEDS ORDERED: Erythromycin Susp 200 MG/5 ML UDC PO SCH (16:00)
[2018-06-18] MEDS ORDERED: *HR* LORazepam 2 MG/ML VIAL ONE (17:19)
[2018-06-18] MEDS: *HR* LORazepam 2 MG/ML VIAL IVP PRN ×3 (17:23→21:29)
--- NOTE | 2018-06-18 17:23 | Electrocardiograph Report ---
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
[2018-06-18] MEDS ORDERED: Simethicone 80 MG TAB.CHEW PO PRN (17:52)
[2018-06-18] MEDS ORDERED: Bisacodyl 10 MG RECTAL SUPPOSITORY RC ONE (17:53)
[2018-06-19] MEDS: *HR* HYDROcodone/Acet 5/325 mg TABLET PO PRN (00:28)
[2018-06-19] MEDS ORDERED: Metoclopramide 10 MG/2 ML VIAL IVP PRN (01:10)
[2018-06-19] MEDS: *HR* LORazepam 2 MG/ML VIAL IVP PRN ×2 (01:31→15:56)
[2018-06-19] MEDS: Piperacillin/Tazobactam 3.375 GM in 0.9 % Sodium Chloride Mini Bag 100 ML IVPB SCH ×3 (01:47→17:20)
[2018-06-19] MEDS: *HR* Heparin 5,000 UNIT/ML VIAL SQ SCH ×4 (01:48→20:32)
[2018-06-19] MEDS: *HR* OxyCODONE/APAP 7.5/325 TABLET PO PRN ×3 (03:39→19:31)
[2018-06-19] MEDS: Ipratropium/Albuterol Neb 3 ML IH SCH ×6 (04:41→23:48)
[2018-06-19 06:03] LABS: Basophils % 0.3 %; Eosinophils # 0.1 K/mcL (0.0-0.6); Eosinophils % 1.3 %; Hematocrit 34.8 % (35.3-44.9); Immature Granulocytes % 0.1 % (0-4); Lymphocytes # 6.2 K/mcL (0.6-4.6); Mean Corpuscular HGB Conc 32.8 g/dL (31.6-35.5); Mean Corpuscular Hemoglobin 29.2 pg (28.0-33.3); Mean Platelet Volume 11.3 fL (9.4-12.4); Monocytes # 0.7 K/mcL (0.0-1.3); Monocytes % 9.4 %; Neutrophils # 0.1 K/mcL (1.6-8.9); Platelet Count 114 K/mcL (140-400); Red Blood Count 3.91 M/mcL (3.82-4.97); Red Cell Distribution Width 13.8 % (11.5-14.5); Segmented Neutrophils % 1.9 %
[2018-06-19 06:06] LABS: Hemoglobin 11.4 g/dL (11.5-15.4)
[2018-06-19 06:23] LABS: Alanine Aminotransferase 6 Units/L (7-52); Albumin 3.7 g/dL (3.5-5.7); Albumin/Globulin Ratio 2.2 (1.1-2.2); Alkaline Phosphatase 66 Units/L (34-104); Aspartate Amino Transferase 10 Units/L (13-39); BUN/Creatinine Ratio 13 (6-26); Bilirubin,Total 0.4 mg/dL (0.3-1.0); Blood Urea Nitrogen 11 mg/dL (8-23); Calcium 8.8 mg/dL (8.6-10.3); Carbon Dioxide 24 mEq/L (23-29); Chloride 106 mEq/L (98-107); Globulin 1.7 g/dL (2.4-3.5); Glucose 147 mg/dL (70-105); Osmolality,Calculated 294 (280-300); Potassium 3.2 mEq/L (3.5-5.1); Sodium 141 mEq/L (136-145); Total Protein 5.4 g/dL (6.4-8.9); eGFR For Non-African Americans > 60 (> 60)
[2018-06-19 06:24] LABS: Platelet Estimate Decreased (Normal)
[2018-06-19 06:25] LABS: Reactive Lymphocytes Present (Not Present); Smudge Cells Present (Not Present)
[2018-06-19 07:48] LABS: Adenovirus Not Detected (Not Detect); Bordetella Pertussis Not Detected (Not Detect); Chlamydophila pneumoniae Not Detected (Not Detect); Coronavirus 229E Not Detected (Not Detect); Coronavirus HKU1 Not Detected (Not Detect); Coronavirus NL63 Not Detected (Not Detect); Coronavirus OC43 Not Detected (Not Detect); Human Metapneumovirus Not Detected (Not Detect); Human Rhinovirus/Enterovirus Not Detected (Not Detect); Influenza A Subtype 2009 H1 Not Detected (Not Detect); Influenza A Untypeable Not Detected (Not Detect); Influenza B Not Detected (Not Detect); Mycoplasma pneumoniae Not Detected (Not Detect); Parainfluenza Virus 1 Not Detected (Not Detect); Parainfluenza Virus 2 Not Detected (Not Detect); Parainfluenza Virus 3 DETECTED (Not Detect); Parainfluenza Virus 4 Not Detected (Not Detect); Respiratory Syncytial Virus Not Detected (Not Detect)
[2018-06-19] MEDS: Insulin LISPRO 300 UNITS/3 ML VIAL SQ SCH ×4 (08:27→20:33)
[2018-06-19] MEDS: Metoprolol XL (24 HR) Succ 25 MG TAB.ER.24H PO SCH (08:27)
[2018-06-19] MEDS: Aspirin 81 MG TAB.CHEW PO SCH (08:28)
[2018-06-19] MEDS: Levofloxacin 750 MG/150 ML 750 MG/150 ML BAG IVPB SCH (08:29)
[2018-06-19] MEDS: Insulin DETEMIR 100 UNIT/ML X5UNITS SQ SCH ×2 (08:29→20:27)
[2018-06-19] MEDS: Acetylcysteine 10% 2 ML INHSOL IH SCH ×5 (09:28→23:48)
[2018-06-19] MEDS: Ondansetron 4 MG/2 ML VIAL IVP PRN (09:35)
[2018-06-19] MEDS ORDERED: Orphenadrine 60 MG/2 ML VIAL IVP PRN (18:59)
--- NOTE | 2018-06-19 19:36 | Internal Med Progress Note ---
Hospitalist Progress Note - Encounter Date of Encounter: 06/19/18 Time of Encounter: 17:40 - Subjective Interval History: Ms Vargas is currently admitted for acute bronchitis and COPD. She remains moderate to high risk due to potential for worsening clinical status. Ms Vargas has been sleeping all day. She says her abdomen is feeling better but back still hurts. Breathing is improving overall. No fever or chills. No CP. - Exam Vitals: Temp Pulse Resp BP Pulse Ox 97.7 F 89 16 143/84 92 06/19/18 18:16 06/19/18 18:16 06/19/18 18:16 06/19/18 18:16 06/19/18 18:16 Exam: General: Alert and oriented. Comfortable at this time. Resting flat in bed. Skin: Normal color, no rash, no lesions. H: Normocephalic. EENT: EOMI, pupils equal. Mucus membranes moist. Cardiovascular: Normal S1 & S2, no murmurs or gallops. Pulse regular. Not tachycardic. Lungs: Decreased breath sounds. No wheeze at this time. Abdomen: Soft, non-tender, no rigidity. Normal bowel sounds. Extremities: No deformity, no edema or tenderness, Neurological: Normal cognition and motor skills. Pulses: Carotid and radial pulses normal +2. Rest of the physical exam is non contributory - Assessment and Plan (1) Pneumonia Current Visit: No Status: Suspected (2) Type 2 diabetes mellitus Current Visit: Yes Status: Chronic (3) CAD (coronary artery disease) Current Visit: No Status: Chronic (4) HTN (hypertension) Current Visit: No Status: Chronic (5) CLL (chronic lymphocytic leukemia) Current Visit: No Status: Chronic (6) Neutropenia Current Visit: Yes Status: Acute (7) Gastroparesis Current Visit: No Status: Chronic (8) CKD (chronic kidney disease), stage III Current Visit: No Status: Chronic - Time Spent with Patient Total time spent is greater than 50% in coordination of care (as documented) at patient's floor/unit and/or counseling patient: Internal Medicine: Result - Labs CBC & Chem 7: 06/19/18 05:49 06/19/18 05:49 Labs: Short CBC 06/19/18 Range/Units 05:49 WBC 7.1 (4.3-11.1) K/mcL Hgb 11.4 L D (11.5-15.4) g/dL Hct 34.8 L (35.3-44.9) % Plt Count 114 L (140-400) K/mcL Neutrophils # 0.1 L (1.6-8.9) K/mcL BMP 06/19/18 05:49 Sodium 141 Potassium 3.2 L Chloride 106 Carbon Dioxide 24 BUN 11 Creatinine 0.86 Glucose 147 H Calcium 8.8 Liver Function 06/19/18 Range/Units 05:49 Total Bilirubin 0.4 (0.3-1.0) mg/dL AST 10 L (13-39) Units/L ALT 6 L (7-52) Units/L Alkaline Phosphatase 66 (34-104) Units/L Albumin 3.7 (3.5-5.7) g/dL - ABG Interpretation ABG results: PT/INR, D-dimer PT 11.8 Seconds (9.4-12.1) 06/17/18 09:27 - Impressions Impressions Lumbar Spine MRI 06/18/18 17:25 IMPRESSION: No marrow edema. No vertebral body collapse. No central canal stenosis. Marrow signal heterogeneity in the lumbar spine without clear evidence of marrow replacing pathology, nonspecific finding. D/ / Sony Baldwin MD / Sony Baldwin MD Interpreting Provider: Sony Baldwin MD Thoracic Spine MRI 06/18/18 17:25 IMPRESSION: No marrow edema. No vertebral body collapse. No central canal stenosis. Marrow signal heterogeneity in the lumbar spine without clear evidence of marrow replacing pathology, nonspecific finding. D/ / Sony Baldwin MD / Sony Baldwin MD Interpreting Provider: Sony Baldwin MD Consult Discharge Plan - Plan Referrals: Mariaelena Vasquez CNP [Primary Care Provider] - 06/25/18 9:00 am (1) Pneumonia Qualifiers: Pneumonia type: due to Pneumococcus Laterality: left Lung location: lower lobe of lung Qualified Code(s): J13 - Pneumonia due to Streptococcus pneumoniae (2) Type 2 diabetes mellitus Qualifiers: Diabetes mellitus cardiopulmonary physical therapist insulin use: with cardiopulmonary physical therapist use Diabetes mellitus complication status: with kidney complications Diabetes mellitus complication detail: with chronic kidney disease Chronic kidney disease stage: stage 3 (moderate) Qualified Code(s): E11.22 - Type 2 diabetes mellitus with diabetic chronic kidney disease; N18.3 - Chronic kidney disease, stage 3 (moderate); Z79.4 - snf (current) use of insulin (3) CAD (coronary artery disease) Qualifiers: Coronary Disease-Associated Artery/Lesion type: [place] artery [place] vs. transplanted heart: [place] heart Associated angina: without angina Qualified Code(s): I25.10 - Atherosclerotic heart disease of [place] coronary artery without angina pectoris (4) HTN (hypertension) Qualifiers: Hypertension type: essential hypertension (6) Neutropenia Qualifiers: Neutropenia type: unspecified Qualified Code(s): D70.9 - Neutropenia, unspecified
[2018-06-20] MEDS: Piperacillin/Tazobactam 3.375 GM in 0.9 % Sodium Chloride Mini Bag 100 ML IVPB SCH ×3 (01:09→17:07)
[2018-06-20] MEDS: *HR* HYDROcodone/Acet 5/325 mg TABLET PO PRN ×2 (01:12→21:59)
[2018-06-20] MEDS: *HR* LORazepam 2 MG/ML VIAL IVP PRN ×6 (01:39→23:05)
[2018-06-20] MEDS: Ipratropium/Albuterol Neb 3 ML IH SCH ×6 (04:37→23:45)
[2018-06-20] MEDS: Acetylcysteine 10% 2 ML INHSOL IH SCH ×6 (04:37→23:45)
[2018-06-20] MEDS: *HR* Heparin 5,000 UNIT/ML VIAL SQ SCH ×3 (05:40→20:41)
[2018-06-20 07:23] LABS: Hematocrit 36.2 % (35.3-44.9); Hemoglobin 11.4 g/dL (11.5-15.4); Mean Corpuscular HGB Conc 31.5 g/dL (31.6-35.5); Mean Corpuscular Hemoglobin 28.4 pg (28.0-33.3); Platelet Count 121 K/mcL (140-400); Red Blood Count 4.02 M/mcL (3.82-4.97)
[2018-06-20 07:44] LABS: BUN/Creatinine Ratio 9 (6-26); Blood Urea Nitrogen 7 mg/dL (8-23); Calcium 8.7 mg/dL (8.6-10.3); Carbon Dioxide 24 mEq/L (23-29); Chloride 107 mEq/L (98-107); Glucose 143 mg/dL (70-105); Magnesium 1.5 mg/dL (1.6-2.6); Osmolality,Calculated 296 (280-300); Potassium 3.3 mEq/L (3.5-5.1); Sodium 143 mEq/L (136-145); eGFR For Non-African Americans > 60 (> 60)
[2018-06-20] MEDS: Insulin LISPRO 300 UNITS/3 ML VIAL SQ SCH ×4 (08:20→20:35)
[2018-06-20] MEDS: Metoprolol XL (24 HR) Succ 25 MG TAB.ER.24H PO SCH (08:58)
[2018-06-20] MEDS: Levofloxacin 750 MG/150 ML 750 MG/150 ML BAG IVPB SCH (08:58)
[2018-06-20] MEDS: Aspirin 81 MG TAB.CHEW PO SCH (08:58)
[2018-06-20] MEDS: Insulin DETEMIR 100 UNIT/ML X5UNITS SQ SCH ×2 (09:04→20:38)
[2018-06-20] MEDS: *HR* OxyCODONE/APAP 7.5/325 TABLET PO PRN ×2 (09:33→17:05)
--- NOTE | 2018-06-20 15:55 | Internal Med Progress Note ---
Hospitalist Progress Note - Encounter Date of Encounter: 06/20/18 Time of Encounter: 15:20 - Subjective Interval History: Ms Vargas is currently admitted for acute bronchitis and COPD. She remains moderate to high risk due to potential for worsening clinical status. Ms Vargas is resting again. No fever or chills. Still has a lot of chest congestion. No GI issues. Percussion added to try to get out secretions. - Exam Vitals: Temp Pulse Resp BP Pulse Ox 98.0 F 94 19 155/82 90 06/20/18 12:10 06/20/18 12:10 06/20/18 15:46 06/20/18 12:10 06/20/18 15:46 Exam: General: Alert and oriented. Comfortable at this time. No respiratory distress Skin: Normal color, no rash, no lesions. H: Normocephalic. EENT: EOMI, pupils equal. Mucus membranes moist. Cardiovascular: Normal S1 & S2, no murmurs or gallops. Pulse regular and not tachy. Lungs: Decreased breath sounds. Scant wheeze at this time Abdomen: Soft, non-tender, no rigidity. Normal bowel sounds. Extremities: No deformity, no edema or tenderness, Neurological: Normal cognition and motor skills. Pulses: Carotid and radial pulses normal +2. Rest of the physical exam is non contributory - Assessment and Plan (1) Pneumonia Current Visit: No Status: Suspected Assessment and Plan: Pt currently on abx and has had slow resolution Still has a lot of secretions and percussion has been added. (2) Type 2 diabetes mellitus Current Visit: Yes Status: Chronic Assessment and Plan: Blood sugars are fairly controlled at this time. (3) CAD (coronary artery disease) Current Visit: No Status: Chronic Assessment and Plan: Chronic issue. (4) HTN (hypertension) Current Visit: No Status: Chronic Assessment and Plan: BP appears to be controlled. (5) CLL (chronic lymphocytic leukemia) Current Visit: No Status: Chronic Assessment and Plan: Chronic issue. (6) Neutropenia Current Visit: Yes Status: Acute Assessment and Plan: Following at this time Appreciate heme onc input. (7) Gastroparesis Current Visit: No Status: Chronic Assessment and Plan: Seems to be doing a little better today. Continue Reglan. (8) CKD (chronic kidney disease), stage III Current Visit: No Status: Chronic - Time Spent with Patient Total time spent is greater than 50% in coordination of care (as documented) at patient's floor/unit and/or counseling patient: Internal Medicine: Result - Labs CBC & Chem 7: 06/20/18 06:57 06/20/18 06:57 Labs: Short CBC 06/20/18 Range/Units 06:57 WBC 6.9 (4.3-11.1) K/mcL Hgb 11.4 L (11.5-15.4) g/dL Hct 36.2 (35.3-44.9) % Plt Count 121 L (140-400) K/mcL BMP 06/20/18 06:57 Sodium 143 Potassium 3.3 L Chloride 107 Carbon Dioxide 24 BUN 7 L Creatinine 0.81 Glucose 143 H Calcium 8.7 - ABG Interpretation ABG results: PT/INR, D-dimer PT 11.8 Seconds (9.4-12.1) 06/17/18 09:27 Consult Discharge Plan - Plan Referrals: Mariaelena Vasquez, MEDICAL RECEPTIONIST [Primary Care Provider] - 06/25/18 9:00 am (1) Pneumonia Qualifiers: Pneumonia type: due to other aerobic Gram-negative bacteria Laterality: left Lung location: lower lobe of lung Qualified Code(s): J15.6 - Pneumonia due to other Gram-negative bacteria (2) Type 2 diabetes mellitus Qualifiers: Diabetes mellitus mcc insulin use: with vermin exterminator use Diabetes mellitus complication status: with kidney complications Diabetes mellitus complication detail: with chronic kidney disease Chronic kidney disease stage: stage 3 (moderate) Qualified Code(s): E11.22 - Type 2 diabetes mellitus with diabetic chronic kidney disease; N18.3 - Chronic kidney disease, stage 3 (moderate); Z79.4 - intermediate (current) use of insulin (3) CAD (coronary artery disease) Qualifiers: Coronary Disease-Associated Artery/Lesion type: [place] artery [place] vs. transplanted heart: [place] heart Associated angina: without angina Qualified Code(s): I25.10 - Atherosclerotic heart disease of [place] coronary artery without angina pectoris (4) HTN (hypertension) Qualifiers: Hypertension type: essential hypertension Qualified Code(s): I10 - Essential (primary) hypertension (6) Neutropenia Qualifiers: Neutropenia type: unspecified Qualified Code(s): D70.9 - Neutropenia, unspecified
[2018-06-21] MEDS: Ondansetron 4 MG/2 ML VIAL IVP PRN (00:46)
[2018-06-21] MEDS: Piperacillin/Tazobactam 3.375 GM in 0.9 % Sodium Chloride Mini Bag 100 ML IVPB SCH ×2 (00:48→09:14)
[2018-06-21] MEDS: Ipratropium/Albuterol Neb 3 ML IH SCH ×5 (04:01→19:37)
[2018-06-21] MEDS: Acetylcysteine 10% 2 ML INHSOL IH SCH ×5 (04:02→19:37)
[2018-06-21 04:34] LABS: BUN/Creatinine Ratio 9 (6-26); Blood Urea Nitrogen 8 mg/dL (8-23); Calcium 8.6 mg/dL (8.6-10.3); Carbon Dioxide 25 mEq/L (23-29); Chloride 109 mEq/L (98-107); Glucose 137 mg/dL (70-105); Osmolality,Calculated 296 (280-300); Potassium 3.4 mEq/L (3.5-5.1); Sodium 143 mEq/L (136-145); eGFR For Non-African Americans > 60 (> 60)
[2018-06-21] MEDS: *HR* Heparin 5,000 UNIT/ML VIAL SQ SCH ×3 (06:04→21:57)
[2018-06-21] MEDS: *HR* HYDROcodone/Acet 5/325 mg TABLET PO PRN ×2 (06:11→15:16)
[2018-06-21] MEDS: *HR* LORazepam 2 MG/ML VIAL IVP PRN ×4 (07:01→20:14)
[2018-06-21] MEDS: Insulin LISPRO 300 UNITS/3 ML VIAL SQ SCH ×4 (07:49→21:56)
--- NOTE | 2018-06-21 07:53 | Oncology Inp Progress Note ---
Date of Encounter: 06/21/18 Time of Encounter: 08:10 (1) CLL (chronic lymphocytic leukemia) Current Visit: No Status: Chronic Assessment and plan: Outside of neutropenia, lymphadenopathy and CBC is stable. No need for intervention at this time. (2) Community acquired pneumonia Current Visit: Yes Status: Acute Assessment and plan: Pneumonia secondary to parainfluenza virus. This is likely the cause of neutropenia. Agree with current management with possible deescalation pending improved ANC. Clinically stable. Qualifiers: Laterality: left Lung location: lower lobe of lung Qualified Code(s): J18.1 - Lobar pneumonia, unspecified organism (3) Neutropenia Current Visit: Yes Status: Acute Assessment and plan: Awaiting CBC from today. No need for neupogen given stability. Qualifiers: Neutropenia type: unspecified Qualified Code(s): D70.9 - Neutropenia, unspecified Oncology: Subj Interval history: No acute events overnight. However, she developed back pain on late Thursday prompting thoracic and lumbar MRI imaging. This showed no acute pathology. No fevers over the weekend (99.3 yesterday AM). She is resting comfortably difficult to awaken. She continues to have some midthoracic back pain. Abdominal pain has essentially resolved. She is moving her bowels per nursing reports. No nausea, vomiting. No other acute change to her health. - Constitutional General appearance: cooperative, no acute distress - Head Head exam: Present: atraumatic, normal inspection, normocephalic - Eye Eye exam: Present: normal appearance, conjuntiva pink, sclera anicteric - ENT ENT exam: Present: mucous membranes moist, normal oropharynx - Neck Neck exam: Present: full ROM, normal inspection - Respiratory Respiratory exam: Present: CTAB - Cardiovascular Cardiovascular exam: Present: RRR - GI/Abdominal GI/Abdominal exam: Present: normal bowel sounds - Extremities Exam Extremities exam: Present: full ROM, normal inspection - Back Exam Back exam: Present: normal inspection - Neurological Exam Neurological exam: Present: alert Oncology: Obj Data - Labs CBC & Chem 7: 06/20/18 06:57 06/21/18 03:27 Consult Discharge Plan - Plan Referrals: Mariaelena Vasquez CNP [Primary Care Provider] - 06/25/18 9:00 am Inpatient Charges Provider: Dr. Jania Lopez Follow up - Inpatient: [id number]
[2018-06-21] MEDS: Metoprolol XL (24 HR) Succ 25 MG TAB.ER.24H PO SCH (09:13)
[2018-06-21] MEDS: Aspirin 81 MG TAB.CHEW PO SCH (09:13)
[2018-06-21] MEDS: Levofloxacin 750 MG/150 ML 750 MG/150 ML BAG IVPB SCH (09:14)
[2018-06-21] MEDS: Insulin DETEMIR 100 UNIT/ML X5UNITS SQ SCH ×2 (09:26→21:57)
--- NOTE | 2018-06-21 10:14 | Internal Med Progress Note ---
<CliffgigiKalin - Last Filed: 06/21/18 15:35> Hospitalist Progress Note - Encounter Date of Encounter: 06/21/18 - Subjective Interval History: Patient is 67-year-old female presenting to [facility] ED on 06/17/2018 for dyspnea, nonproductive cough, and nasal drainage. Patient has a PMHx of CLL, COPD, CAD, DM, HTN and CKD. Patient was recently treated for bronchitis ~2 weeks ago by her PCP with doxycycline. Patient states that she finished antibiotic course and continued to feel poorly with gradual worsening of her symptoms. Patient states that she has approximately 2 episodes of bronchitis per year that typically deteriorate into pneumonia. Patient wears when necessary oxygen at home. -Chest x-ray performed in the ED shows "mild left basilar airspace disease, atelectasis or pneumonia." -Patient also found to be severely neutropenic with neutral count on CBC at 0.1 Upon initial encounter this a.m. patient is laying in hospital bed, awake but sleepy, she is alert, answering questions appropriately Patient currently admits to nausea/vomiting/abdominal pain, neck/back pain, and diarrhea. Patient denies headache, vision change/tinnitus, dysphagia/odynophagia/sore throat, constipation, paresthesias, hematurea/hematochezia. Patient states "Just keep my pain away" - Exam Vitals: Temp Pulse Resp BP Pulse Ox 98.2 F 76 16 143/80 99 06/21/18 03:07 06/21/18 03:07 06/21/18 04:04 06/21/18 03:07 06/21/18 04:04 Exam: Constitutional: Patient is alert, answering questions appropriately, in no acute distress, no focal neurological deficits. Skin: Warm, dry, intact, non-diaphoretic, no erythema, no new bruises, rashes, or bleeding in visualized areas. CV: RRR, S1 and S2, no murmurs, gallops or rubs appreciated Resp: Minimal wheeze noted diffusely. No rhonchi, rales, or stridor appreciated. Abd: Tender diffusely to palpation, otherwise soft, obese, non-tender, non-distended, no guarding or rebound noted. Extremities: pulses in tact and strong in bilateral dorsalis pedis and radial arteries. Psych: Normal affect, normal mood - Assessment and Plan (1) Community acquired pneumonia Current Visit: Yes Status: Acute (2) CLL (chronic lymphocytic leukemia) Current Visit: No Status: Chronic (3) CKD (chronic kidney disease), stage III Current Visit: No Status: Chronic (4) Type 2 diabetes mellitus Current Visit: Yes Status: Chronic (5) CAD (coronary artery disease) Current Visit: No Status: Chronic (6) Gastroparesis Current Visit: No Status: Chronic (7) Back pain Current Visit: No Status: Acute (8) Agitation Current Visit: Yes Status: Acute DVT Prophylaxis: 5,000 units subcutaneous heparin every 8 hour - Summary of Assessment and Plan Summary of Assessment and Plan: (1) Community acquired pneumonia Current Visit: Yes Status: Acute Assessment and Plan: Patient found to have left lower lobe pneumonia on chest x-ray performed on 06/17/2017 Patient recently finished a course of doxycycline for bronchitis Patient recently completed a course of Keflex for UTI Patient positive for Influenza Patient is currently afebrile, non-tachycardic, nontachypneic, satting at 98% on 2 L via nasal cannula Plan: Stop Levaquin and Zosyn Continue PRN DuoNeb guaifenesin 600 mg by mouth twice a day Added Chest percussion + Acetylcysteine PT/OT consulted for mobilization and further rec's (2) CLL (chronic lymphocytic leukemia) Current Visit: No Status: Chronic Assessment and Plan: Patient with known past medical history of CLL Currently not on chemotherapy or radiation treatment Currently White blood cell count at 6.9. Neutrophils 0.1 at last check on 06/19 Hematology/oncology consulted and is following - notes patient WBC normal with stable neutropenia CTA plus CT abdomen and pelvis without acute pathology Plan: Continue to monitor (3) CKD (chronic kidney disease), stage III Current Visit: No Status: Acute Assessment and Plan: Patient has a known history of chronic kidney disease Patient's creatinine is currently 0.88-trended down from 1.33 on June 16 Estimated GFR currently at >60 Plan: Continue by mouth hydration Daily BMP Avoid nephrotoxic agents - renally dose medications (4) Type 2 diabetes mellitus Current Visit: Yes Status: Chronic Assessment and Plan: Patient with past medical history of type 2 [id number] Last hemoglobin A1c of 6.8 on 05/24/2018 Patient with 2 week history of oral steroids and antibiotics for bronchitis Glucose is currently 137 without anion gap Plan: Continue corrective low-dose sliding scale insulin with protocol (5) CAD (coronary artery disease) Current Visit: No Status: Chronic Assessment and Plan: Patient with known past medical history of CAD We will continue home medications (6) Gastroparesis Current Visit: No Status: Acute Known hx Plan: Continue Reglan 5mg PO TID PRN Zofran MiraLax GasEx (7) Back pain Current Visit: No Status: Acute Assessment and Plan: MRI wo con in thoracic and lumber spine without acute pathology Stop Oxycodone/Hydrocodone + Start home dose of Tramadol 50mg TID (8) Agitation Current Visit: Yes Status: Acute Assessment and Plan: Patient pain appears to be provoked by agitation Patient reported by nursing staff to be screaming/yelling in room without specific complaints Plan: Continue 1mg Lorazepam Q2HR PRN for anxiety/agitation - Time Spent with Patient Total time spent is greater than 50% in coordination of care (as documented) at patient's floor/unit and/or counseling patient: Internal Medicine: Result - Labs CBC & Chem 7: 06/20/18 06:57 06/21/18 03:27 Labs: BMP 06/21/18 03:27 Sodium 143 Potassium 3.4 L Chloride 109 H Carbon Dioxide 25 BUN 8 Creatinine 0.88 Glucose 137 H Calcium 8.6 - ABG Interpretation ABG results: PT/INR, D-dimer PT 11.8 Seconds (9.4-12.1) 06/17/18 09:27 Consult Discharge Plan - Plan Referrals: Mariaelena Vasquez CRM DYNAMICS DEVELOPER [Primary Care Provider] - 06/25/18 9:00 am <Paul Robledo - Last Filed: 06/21/18 18:00> Hospitalist Progress Note - Encounter Date of Encounter: 06/21/18 Time of Encounter: 10:00 - Exam Vitals: Temp Pulse Resp BP Pulse Ox 97.9 F 93 18 158/78 95 06/21/18 15:25 06/21/18 15:25 06/21/18 15:25 06/21/18 15:25 06/21/18 15:25 - Assessment and Plan (1) Parainfluenza virus bronchitis Current Visit: Yes Status: Acute (2) Pneumonia Current Visit: No Status: Suspected (3) Type 2 diabetes mellitus Current Visit: Yes Status: Chronic (4) CAD (coronary artery disease) Current Visit: No Status: Chronic (5) HTN (hypertension) Current Visit: No Status: Chronic (6) CLL (chronic lymphocytic leukemia) Current Visit: No Status: Chronic (7) Neutropenia Current Visit: Yes Status: Acute (8) Gastroparesis Current Visit: No Status: Chronic (9) CKD (chronic kidney disease), stage III Current Visit: No Status: Chronic (10) Chronic back pain Current Visit: Yes Status: Acute - Time Spent with Patient Total time spent is greater than 50% in coordination of care (as documented) at patient's floor/unit and/or counseling patient: Internal Medicine: Result - Labs CBC & Chem 7: 06/20/18 06:57 06/21/18 03:27 Labs: BMP 06/21/18 03:27 Sodium 143 Potassium 3.4 L Chloride 109 H Carbon Dioxide 25 BUN 8 Creatinine 0.88 Glucose 137 H Calcium 8.6 - ABG Interpretation ABG results: PT/INR, D-dimer PT 11.8 Seconds (9.4-12.1) 06/17/18 09:27 - Attending Attestation I examined this patient and my medical decision-making was reviewed with the Resident Physician on 06/21/18. I agree with the documented findings, disposition and treatment plan as described except to the extent set forth below. Ms Vargas is currently admitted for respiratory failure and parainfluenza infection. She remains moderate to high risk due to potential worsening clinical and respiratory status. Ms Vargas is sitting up in bed. She continues to complain of back pain. Her RIP is positive for parainfluenza. No fever or chills. No CP at this time. Tolerating diet. Exam alert Comfortable at this time Mucus membranes dry Heart reg and not tachy Anterior rhonchi heard Abd soft and nontender. I/P 1. Acute exac COPD - precipitated by parainfluenza 2. Chronic back pain PT/OT consulted. Pt needs to move and get out of bed. Further diagnoses and plan as above. <Kalin Bowser - Last Filed: 06/21/18 15:35> (1) Community acquired pneumonia Qualifiers: Laterality: left Lung location: lower lobe of lung Qualified Code(s): J18.1 - Lobar pneumonia, unspecified organism (4) Type 2 diabetes mellitus Qualifiers: Diabetes mellitus fci insulin use: with lobsterman use Diabetes mellitus complication status: with kidney complications Diabetes mellitus complication detail: with chronic kidney disease Chronic kidney disease stage: stage 3 (moderate) Qualified Code(s): E11.22 - Type 2 diabetes mellitus with diabetic chronic kidney disease; N18.3 - Chronic kidney disease, stage 3 (moderate); Z79.4 - intermediate card tender (current) use of insulin (5) CAD (coronary artery disease) Qualifiers: Coronary Disease-Associated Artery/Lesion type: [place] artery [place] vs. transplanted heart: [place] heart Associated angina: without angina Qualified Code(s): I25.10 - Atherosclerotic heart disease of [place] coronary artery without angina pectoris (7) Back pain Qualifiers: Back pain location: thoracic back pain Chronicity: acute Back pain laterality: midline Qualified Code(s): M54.6 - Pain in thoracic spine <Paul Robledo - Last Filed: 06/21/18 18:00> (2) Pneumonia Qualifiers: Pneumonia type: due to other aerobic Gram-negative bacteria Laterality: left Lung location: lower lobe of lung Qualified Code(s): J15.6 - Pneumonia due to other Gram-negative bacteria (3) Type 2 diabetes mellitus Qualifiers: Diabetes mellitus lobsterman insulin use: with lobsterman use Diabetes mellitus complication status: with kidney complications Diabetes mellitus complication detail: with chronic kidney disease Chronic kidney disease stage: stage 3 (moderate) Qualified Code(s): E11.22 - Type 2 diabetes mellitus with diabetic chronic kidney disease; N18.3 - Chronic kidney disease, stage 3 (moderate); Z79.4 - intermediate card tender (current) use of insulin (4) CAD (coronary artery disease) Qualifiers: Coronary Disease-Associated Artery/Lesion type: [place] artery [place] vs. transplanted heart: [place] heart Associated angina: without angina Qualified Code(s): I25.10 - Atherosclerotic heart disease of [place] coronary artery without angina pectoris (5) HTN (hypertension) Qualifiers: Hypertension type: essential hypertension Qualified Code(s): I10 - Essential (primary) hypertension (7) Neutropenia Qualifiers: Neutropenia type: unspecified Qualified Code(s): D70.9 - Neutropenia, unspe cified (10) Chronic back pain Qualifiers: Back pain location: thoracic back pain Back pain laterality: bilateral Qualified Code(s): M54.6 - Pain in thoracic spine; G89.29 - Other chronic pain
[2018-06-21] MEDS: *HR* OxyCODONE/APAP 7.5/325 TABLET PO PRN (11:20)
[2018-06-21] MEDS ORDERED: traMADol 50 MG TABLET PO PRN (15:34)
[2018-06-21] MEDS: traMADol 50 MG TABLET PO SCH (21:57)
[2018-06-22] MEDS: Ipratropium/Albuterol Neb 3 ML IH SCH ×7 (00:26→23:30)
[2018-06-22] MEDS: Acetylcysteine 10% 2 ML INHSOL IH SCH ×7 (00:26→23:30)
[2018-06-22] MEDS: *HR* LORazepam 2 MG/ML VIAL IVP PRN ×2 (00:33→07:59)
[2018-06-22] MEDS: *HR* Heparin 5,000 UNIT/ML VIAL SQ SCH ×3 (05:35→22:22)
[2018-06-22 05:38] LABS: Basophils % 0.6 %; Eosinophils # 0.1 K/mcL (0.0-0.6); Eosinophils % 1.4 %; Hemoglobin 11.6 g/dL (11.5-15.4); Immature Granulocytes % 1.4 % (0-4); Lymphocytes % 88.7 %; Mean Corpuscular HGB Conc 32.2 g/dL (31.6-35.5); Mean Corpuscular Hemoglobin 28.6 pg (28.0-33.3); Mean Corpuscular Volume 88.7 fL (83.0-100.0); Mean Platelet Volume 11.4 fL (9.4-12.4); Monocytes # 0.4 K/mcL (0.0-1.3); Monocytes % 5.2 %; Neutrophils # 0.2 K/mcL (1.6-8.9); Nucleated Red Blood Cells 0.3 /100 WBC (0); Platelet Count 114 K/mcL (140-400); Red Blood Count 4.06 M/mcL (3.82-4.97); Red Cell Distribution Width 13.9 % (11.5-14.5); Segmented Neutrophils % 2.7 %
[2018-06-22 05:55] LABS: Lymphocytes # 6.4 K/mcL (0.6-4.6)
[2018-06-22 06:36] LABS: Platelet Estimate Normal (Normal); Reactive Lymphocytes Present (Not Present); Smudge Cells Present (Not Present)
[2018-06-22] MEDS: Insulin LISPRO 300 UNITS/3 ML VIAL SQ SCH ×4 (07:37→22:21)
[2018-06-22] MEDS: traMADol 50 MG TABLET PO SCH ×3 (07:49→22:22)
[2018-06-22] MEDS: Aspirin 81 MG TAB.CHEW PO SCH (07:49)
[2018-06-22] MEDS: Metoprolol XL (24 HR) Succ 25 MG TAB.ER.24H PO SCH (07:50)
[2018-06-22] MEDS: Insulin DETEMIR 100 UNIT/ML X5UNITS SQ SCH ×2 (07:59→22:21)
[2018-06-22] MEDS: *HR* LORazepam 1 MG TABLET PO PRN ×2 (11:50→16:34)
--- NOTE | 2018-06-22 13:31 | Discharge Summary ---
- NOTES TO OUTPATIENT PROVIDER Notes to Outpatient Provider: Patient admitted with shorness of breath found to have respiratory virus. Treated for her chronic back pain and had anxiety inpatient. She refused evaluation by pt/ot. Orders not resulted at time of discharge: Pending orders 06/19/18 03:37 Sputum Culture [Culture,Sputum with Gram Stain] [] Stat 06/19/18 03:38 Legionella Antigen [] Stat Streptococcal pneumoniae urin antigen [S. Pneumoniae Antigen] [] Stat Date of Encounter: 06/22/18 Time of Encounter: 09:00 - Discharge Diagnosis (1) Community acquired pneumonia Priority: Primary Status: Acute Qualifiers: Laterality: left Lung location: lower lobe of lung Qualified Code(s): J18.1 - Lobar pneumonia, unspecified organism (2) Type 2 diabetes mellitus Priority: Secondary Status: Chronic Qualifiers: Diabetes mellitus [facility] insulin use: with adjunct faculty for medical terminology use Diabetes mellitus complication status: with kidney complications Diabetes mellitus complication detail: with chronic kidney disease Chronic kidney disease stage: stage 3 (moderate) Qualified Code(s): E11.22 - Type 2 diabetes mellitus with diabetic chronic kidney disease; N18.3 - Chronic kidney disease, stage 3 (moderate); Z79.4 - termination clerk (current) use of insulin (3) CAD (coronary artery disease) Priority: Secondary Status: Chronic Qualifiers: Coronary Disease-Associated Artery/Lesion type: [place] artery [place] vs. transplanted heart: [place] heart Associated angina: without angina Qualified Code(s): I25.10 - Atherosclerotic heart disease of [place] coronary artery without angina pectoris (4) [place] (acute kidney injury) Priority: Secondary Status: Acute (5) CLL (chronic lymphocytic leukemia) Priority: Secondary Status: Chronic (6) DVT prophylaxis Priority: Secondary Status: Acute Hospital course: Ms. Vargas is a 67 year old female known history of diabetes, obesity, CLL untreated at this time presented with shortness of breath admitted for community acquired pneumonia. She was started on Levaquin and Zosyn upon initial evaluation as her neutrophil count was 0.1 and it was concerns for neutropenia with her history of CLL. Hematology consult placed be evaluated with no addition to current plan. Patient was continued and patient also treated with her chronic back pain and for anxiety. She was found to have parainfluenza on viral panel. Antibiotics or stop patient significantly improved. Physical therapy and occupational therapy were ordered and came to evaluate but the patient refused. She was seen and evaluated on 06/22/2018 deemed stable for discharge home with follow-up with our primary care provider post hospitalization and for continued management with her chronic back pain and evaluation for anxiety. Patient was agreeable with this plan. Discharge discussed with: patient - Time Spent with Patient Total time spent providing and/or coordinating discharge services: Specific discharge activities: follow up with PCP for re-evaluation post hospitalization and evaluation of your chronic back pain and anxiety. Follow up in the next 3-5 days - Discharge Medications Home Medications: Aspirin 81 mg PO DAILY 04/05/15 [History] Topiramate [Topamax] 25 mg PO BID 08/23/15 [History] Folic Acid 1 mg PO DAILY #30 tablet 09/18/15 [Rx] Primidone [Mysoline] 50 mg PO HS 02/28/16 [History] Ascorbic Acid [Vitamin C] 500 mg PO DAILY 03/06/16 [History] Ferrous Sulfate [Iron] 325 mg PO DAILY 03/06/16 [History] Fluticasone Propionate Nasal [Flonase] 2 spray NS DAILY 11/26/16 [History] Insulin Glargine/Lixisenatide [Soliqua 100 Unit-33 Mcg/ml Pen] 60 unit SQ HS 11/26/16 [History] Tramadol HCl [Ultram] 50 mg PO TID 11/26/16 [History] Cyanocobalamin (Vitamin B-12) [Vitamin B-12] 500 mcg PO DAILY 05/06/17 [History] Linagliptin [Tradjenta] 5 mg PO DAILY 05/06/17 [History] Loratadine [Claritin] 10 mg PO DAILY 05/06/17 [History] Metoprolol XL (24 HR) Succ [Toprol Xl] 25 mg PO DAILY 05/06/17 [History] Pioglitazone [Actos] 15 mg PO DAILY 05/06/17 [History] Acetaminophen [Tylenol] 650 mg PO Q6HR PRN tablet 07/10/17 [Rx] Albuterol Neb [Proventil Neb] 2.5 mg IH Q4H PRN #1 inhsol 09/22/17 [Rx] Omeprazole [PriLOSEC] 40 mg PO DAILY 11/05/17 [History] Docusate [Colace] 100 mg PO DAILY #30 capsule 11/11/17 [Rx] Atorvastatin [Lipitor] 40 mg PO HS 12/06/17 [History] Ergocalciferol (VITAMIN D2) [Vitamin D2] 50,000 unit PO WE 12/06/17 [History] Insulin Regular Human [Humulin R] 0 - 10 units SQ TIDWM 12/06/17 [History] raNITIdine HCl [Zantac] 150 mg PO DAILY 12/06/17 [History] Doxepin [Sinequan] 25 mg PO HS #30 capsule 12/11/17 [Rx] Furosemide [Lasix] 20 mg PO DAILY 01/16/18 [History] Albuterol Sulfate [Albuterol Inhaler] 1 puff IH Q6HR PRN #1 inhaler 06/08/18 [Rx] Loperamide [Imodium] 2 mg PO BID PRN 06/17/18 [History] Metoclopramide [Reglan] 10 mg PO TID PRN 06/17/18 [History] Oxybutynin [Ditropan] 5 mg PO BID 06/17/18 [History] Pregabalin [Lyrica] 100 mg PO TID 06/17/18 [History] Sucralfate [Carafate] 10 ml PO QID 06/17/18 [History] Allergies/Adverse Reactions: Allergy/AdvReac Type Severity Reaction Status Date / Time metformin Allergy Nausea Verified 06/08/18 21:09 Sulfa (Sulfonamide Allergy Nausea Verified 06/08/18 21:09 Antibiotics) sulfamethoxazole Allergy Nausea Verified 06/08/18 21:09 [From Bactrim] trimethoprim [From Bactrim] Allergy Nausea Verified 06/08/18 21:09 Date of admission: 06/17/18 07:48 Primary care physician: Mariealena Vasquez CNP Consults: 06/18/18 10:00 Consult to Oncology Hematology [CONS] Routine Consulting Provider: Ventura Lopez Reason for Consult: neutropenia with hx of CLL Call Completed: Yes 06/21/18 08:29 Consult to Occupational Therapy [CONS] Routine Comment: Evaluate, develop and implement POC Reason for Consult: + Parainfluenza PNA, Cough/Dyspnea/Congestion, Chest percussion therapy. Needs assessment, movement as tolerated and PT/OT recommendations concerning ADLs Does patient have active BEDREST order?: No Is patient medically & hemodynamically stable?: Yes Patient assessed for mobility or mobilized this visit?: Yes Consult to Physical Therapy [CONS] Routine Comment: Evaluate, develop and implement POC Reason for Consult: + Parainfluenza PNA, Cough/Dyspnea/Congestion, Chest percussion therapy. Needs assessment, movement as tolerated and PT/OT recommendations concerning ADLs Does patient have active BEDREST order?: No Is patient medically & hemodynamically stable?: Yes Patient assessed for mobility or mobilized this visit?: Yes Discharging clinician: Cristi Hernandez Anticipated date of discharge: 06/22/18 - Constitutional Vitals: Temp Pulse Resp BP Pulse Ox 98.3 F 92 16 152/77 97 06/22/18 06:49 06/22/18 06:49 06/22/18 06:49 06/22/18 06:49 06/22/18 10:42 Exam: GEN: alert awake interactive in no acute distress HEENT: NC/AT PERRLA, oral mucosa moist, neck supple trachea midline Cardiac: RRR pulm: CTABL Abdomen: soft nontender to palpation Extremities: symmetric, without erythema or edema. - Patient Status Disposition: Home, Self-Care Condition: Fair Overall status at discharge: patient is progressing back to baseline - Discharge Instructions Instructions: Pneumonia (DC) Follow Up With: Mariaelena Vasquez CNP [Primary Care Provider] - 06/25/18 9:00 am Additional Instructions: Follow-up appointments: If there is not an appointment listed below, please call your physician and schedule a follow-up appointment. If you have congestive heart failure and your symptoms return, make an appointment with your physician. Medication List: Carry an up to date list of medications you are taking at all time. We have given you an updated medication list including any new medications that you have been prescribed. Please provide that list to your primary provider Symptoms: If your condition changes or you experience any of the following symptoms, notify your physician immediately: Unusual or worsening pain, fever, persistent nausea and vomiting, bleeding, increase in swelling (especially in your legs), sudden weight gain, extreme dizziness, chest pain, increased drainage or redness from a wound or incision. Go to the emergency department if you experience a problem with breathing. Weights: If you have a history of swelling or shortness of breath, weigh yourself daily and notify your physician if you have a weight gain of two or more pounds in one day or 5 or more pounds in a week. If you experience any of the warning signs for stroke: Sudden numbness or weakness of the face, arm or leg; especially on one side of the body, sudden confusion, trouble speaking or understanding, sudden trouble seeing in one or both eyes, sudden trouble walking, dizziness, loss of balance or coordination, sudden sever headache with no cause; Call 911 or go to the emergency room. Stroke is a medical emergency. Some risk factors for stroke: Age, cigarette smoking, diabetes, excessive alcohol consumption, family history, high blood pressure, overweight, physical inactivity, prior stroke, heart attack, diagnosis of carotid artery stenosis or other artery disease. If you smoke, STOP: Smoking or tobacco use significantly increases your risk of heart and lung disease. Your chance of disease greatly increases if you continue to smoke. For more information, call the [place] tobacco quit line for smoking cessation 6-822-JPPB-NOW ( ) - Diet and Activity Activity: increase activity as tolerated Diet: advance to your usual diet (patient refused PT/OT)
--- NOTE | 2018-06-22 18:15 | Internal Med Progress Note ---
Hospitalist Progress Note - Encounter Date of Encounter: 06/22/18 Time of Encounter: 13:30 - Subjective Interval History: Ms Vargas is currently admitted for acute bronchitis and COPD. She remains moderate to high risk due to potential for worsening clinical status. Ms Vargas initially refused PT/OT today. She is up now. She continues to complain of her back hurting. She wants to stay in bed and we advised against this. No fever or chills. No CP. Abd OK today. We have switched her meds around some today. Initially we were going to discharge her but she agreed to see PT and OT today. - Exam Vitals: Temp Pulse Resp BP Pulse Ox 97.8 F 97 17 118/84 96 06/22/18 15:55 06/22/18 15:55 06/22/18 15:55 06/22/18 15:55 06/22/18 15:55 Exam: GEN: alert awake interactive in no acute distress HEENT: NC/AT PERRLA, oral mucosa moist, neck supple trachea midline Cardiac: RRR. Not tachycardic pulm: CTABL No wheeze or rhonchi at this time. Abdomen: soft nontender to palpation Extremities: symmetric, without erythema or edema. Moves all extremities Normocephalic No rash. - Assessment and Plan (1) Parainfluenza virus bronchitis Current Visit: Yes Status: Acute Assessment and Plan: Seems to be slowly improving. Continue supportive care. PT/OT to evaluate patient. Anticipate d/c tomorrow if no new issues. (2) Pneumonia Current Visit: No Status: Suspected Assessment and Plan: Complete course of abx. (3) Type 2 diabetes mellitus Current Visit: Yes Status: Chronic Assessment and Plan: Blood sugars controlled now. (4) CAD (coronary artery disease) Current Visit: No Status: Chronic Assessment and Plan: Chronic issue. (5) HTN (hypertension) Current Visit: No Status: Chronic Assessment and Plan: BP appears to be controlled. (6) CLL (chronic lymphocytic leukemia) Current Visit: No Status: Chronic Assessment and Plan: Chronic issue. (7) Neutropenia Current Visit: Yes Status: Acute Assessment and Plan: Following at this time Appreciate heme onc input. (8) Gastroparesis Current Visit: No Status: Chronic Assessment and Plan: Seems to be improved Continue Reglan. (9) CKD (chronic kidney disease), stage III Current Visit: No Status: Chronic (10) Chronic back pain Current Visit: Yes Status: Chronic Assessment and Plan: Continue home Tramadol. - Time Spent with Patient Total time spent is greater than 50% in coordination of care (as documented) at patient's floor/unit and/or counseling patient: Internal Medicine: Result - Labs CBC & Chem 7: 06/22/18 04:42 06/21/18 03:27 Labs: Short CBC 06/22/18 Range/Units 04:42 WBC 7.2 (4.3-11.1) K/mcL Hgb 11.6 (11.5-15.4) g/dL Hct 36.0 (35.3-44.9) % Plt Count 114 L (140-400) K/mcL Neutrophils # 0.2 L (1.6-8.9) K/mcL - ABG Interpretation ABG results: PT/INR, D-dimer PT 11.8 Seconds (9.4-12.1) 06/17/18 09:27 Consult Discharge Plan - Plan Instructions: Pneumonia (DC) Additional Instructions: Follow-up appointments: If there is not an appointment listed below, please call your physician and schedule a follow-up appointment. If you have congestive heart failure and your symptoms return, make an appointment with your physician. Medication List: Carry an up to date list of medications you are taking at all time. We have given you an updated medication list including any new medications that you have been prescribed. Please provide that list to your primary provider Symptoms: If your condition changes or you experience any of the following symptoms, notify your physician immediately: Unusual or worsening pain, fever, persistent nausea and vomiting, bleeding, inc rease in swelling (especially in your legs), sudden weight gain, extreme dizziness, chest pain, increased drainage or redness from a wound or incision. Go to the emergency department if you experience a problem with breathing. Weights: If you have a history of swelling or shortness of breath, weigh yourself daily and notify your physician if you have a weight gain of two or more pounds in one day or 5 or more pounds in a week. If you experience any of the warning signs for stroke: Sudden numbness or weakness of the face, arm or leg; especially on one side of the body, sudden confusion, trouble speaking or understanding, sudden trouble seeing in one or both eyes, sudden trouble walking, dizziness, loss of balance or coordination, sudden sever headache with no cause; Call 911 or go to the emergency room. Stroke is a medical emergency. Some risk factors for stroke: Age, cigarette smoking, diabetes, excessive alcohol consumption, family history, high blood pressure, overweight, physical inactivity, prior stroke, heart attack, diagnosis of carotid artery stenosis or other artery disease. If you smoke, STOP: Smoking or tobacco use significantly increases your risk of heart and lung disease. Your chance of disease greatly increases if you continue to smoke. For more information, call the [place] tobacco quit line for smoking cessation 8-777-HFCN-NOW ( ) Referrals: Mariaelena Vasquez, ASSISTANT TO THE DIRECTOR [Primary Care Provider] - 06/25/18 9:00 am __ (2) Pneumonia Qualifiers: Pneumonia type: due to other aerobic Gram-negative bacteria Laterality: left Lung location: lower lobe of lung Qualified Code(s): J15.6 - Pneumonia due to other Gram-negative bacteria (3) Type 2 diabetes mellitus Qualifiers: Diabetes mellitus [employer] insulin use: with assisted use Diabetes mellitus complication status: with kidney complications Diabetes mellitus complication detail: with chronic kidney disease Chronic kidney disease stage: stage 3 (moderate) Qualified Code(s): E11.22 - Type 2 diabetes mellitus with diabetic chronic kidney disease; N18.3 - Chronic kidney disease, stage 3 (moderate); Z79. 4 - [facility] (current) use of insulin (4) CAD (coronary artery disease) Qualifiers: Coronary Disease-Associated Artery/Lesion type: [place] artery [place] vs. transplanted heart: [place] heart Associated angina: without angina Qualified Code(s): I25.10 - Atherosclerotic heart disease of [place] coronary artery without angina pectoris (5) HTN (hypertension) Qualifiers: Hypertension type: essential hypertension Qualified Code(s): I10 - Essential (primary) hypertension (7) Neutropenia Qualifiers: Neutropenia type: unspecified Qualified Code(s): D70.9 - Neutropenia, unspecified (10) Chronic back pain Qualifiers: Back pain location: thoracic back pain Back pain laterality: bilateral Qualified Code(s): M54.6 - Pain in thoracic spine; G89.29 - Other chronic pain
[2018-06-22] MEDS: Ondansetron 4 MG/2 ML VIAL IVP PRN (18:44)
[2018-06-23] MEDS: *HR* LORazepam 1 MG TABLET PO PRN ×3 (00:13→16:42)
[2018-06-23] MEDS: Ipratropium/Albuterol Neb 3 ML IH SCH ×4 (04:50→15:36)
[2018-06-23] MEDS: Acetylcysteine 10% 2 ML INHSOL IH SCH ×4 (04:50→15:36)
[2018-06-23] MEDS: *HR* Heparin 5,000 UNIT/ML VIAL SQ SCH ×2 (06:40→16:42)
[2018-06-23] MEDS: traMADol 50 MG TABLET PO SCH ×2 (08:05→16:42)
[2018-06-23] MEDS: Metoprolol XL (24 HR) Succ 25 MG TAB.ER.24H PO SCH (08:06)
[2018-06-23] MEDS: Aspirin 81 MG TAB.CHEW PO SCH (08:06)
[2018-06-23] MEDS: Insulin LISPRO 300 UNITS/3 ML VIAL SQ SCH ×3 (08:07→17:48)
[2018-06-23] MEDS: Insulin DETEMIR 100 UNIT/ML X5UNITS SQ SCH (08:26)
--- NOTE | 2018-06-23 09:34 | Internal Med Progress Note ---
<SuhasanjelicajohanaCristi Arana - Last Filed: 06/23/18 11:31> Hospitalist Progress Note - Encounter Date of Encounter: 06/23/18 Time of Encounter: 09:33 - Subjective Interval History: Patient has been seen and evaluated at bedside this morning. She is awake interactive no acute distress. Denies any concerns at this time. No events o vernight. Discharge plan continue. - Exam Vitals: Temp Pulse Resp BP Pulse Ox 98.0 F 87 18 139/68 98 06/23/18 07:00 06/23/18 07:00 06/23/18 07:00 06/23/18 07:00 06/23/18 07:00 Exam: GEN: alert awake interactive in no acute distress HEENT: NC/AT PERRLA, oral mucosa moist, neck supple trachea midline Cardiac: RRR pulm: CTABL Abdomen: soft nontender to palpation Extremities: symmetric, without erythema or edema. - Assessment and Plan (1) Community acquired pneumonia Status: Acute Assessment and Plan: No further antibiotics needed. Patient stable, no continuation of oxygen. (2) Type 2 diabetes mellitus Status: Chronic Assessment and Plan: Glucose control. Continue the patient signed scale until discharge on home dose. (3) CAD (coronary artery disease) Status: Chronic Assessment and Plan: Continue home medications. Stable. (4) LENORE (acute kidney injury) Status: Acute Assessment and Plan: Resolved. (5) CLL (chronic lymphocytic leukemia) Status: Chronic Assessment and Plan: Chronic. No acute episodes. She will follow up with regular hematology visits. (6) DVT prophylaxis Status: Acute - Time Spent with Patient Total time spent is greater than 50% in coordination of care (as documented) at patient's floor/unit and/or counseling patient: Internal Medicine: Result - Labs CBC & Chem 7: 06/22/18 04:42 06/21/18 03:27 - ABG Interpretation ABG results: PT/INR, D-dimer PT 11.8 Seconds (9.4-12.1) 06/17/18 09:27 Consult Discharge Plan - Plan Instructions: Pneumonia (DC) Additional Instructions: An outpatient therapy facility list has been provided to you. Please use prescription for therapy services to set up outpatient therapy at facility of your choice. Follow-up appointments: If there is not an appointment listed below, please call your physician and schedule a follow-up appointment. If you have congestive heart failure and your symptoms return, make an appointment with your physician. Medication List: Carry an up to date list of medications you are taking at all time. We have given you an updated medication list including any new medications that you have been prescribed. Please provide that list to your primary provider Symptoms: If your condition changes or you experience any of the following symptoms, notify your physician immediately: Unusual or worsening pain, fever, persistent nausea and vomiting, bleeding, increase in swelling (especially in your legs), sudden weight gain, extreme dizziness, chest pain, increased drainage or redness from a wound or incision. Go to the emergency department if you experience a problem with breathing. Weights: If you have a history of swelling or shortness of breath, weigh yourself daily and notify your physician if you have a weight gain of two or more pounds in one day or 5 or more pounds in a week. If you experience any of the warning signs for stroke: Sudden numbness or weakness of the face, arm or leg; especially on one side of the body, sudden confusion, trouble speaking or understanding, sudden trouble seeing in one or both eyes, sudden trouble walking, dizziness, loss of balance or coordination, sudden sever headache with no cause; Call 911 or go to the emergency room. Stroke is a medical emergency. Some risk factors for stroke: Age, cigarette smoking, diabetes, excessive alcohol consumption, family history, high blood pressure, overweight, physical inactivity, prior stroke, heart attack, diagnosis of carotid artery stenosis or other artery disease. If you smoke, STOP: Smoking or tobacco use significantly increases your risk of heart and lung disease. Your chance of disease greatly increases if you continue to smoke. For more information, call the [place] tobacco quit line for smoking cessation 9 -611908-WRFT-RGC ( ) Referrals: Mariaelena Vasquez CNP [Primary Care Provider] - 06/25/18 9:00 am <Yoel Anderson - Last Filed: 06/24/18 08:47> Hospitalist Progress Note - Encounter Date of Encounter: 06/24/18 - Exam Vitals: Temp Pulse Resp BP Pulse Ox 97.5 F L 80 16 116/76 97 06/23/18 17:44 06/23/18 17:44 06/23/18 17:44 06/23/18 17:44 06/23/18 17:44 - Assessment and Plan (1) Type 2 diabetes mellitus Status: Chronic (2) CAD (coronary artery disease) Status: Chronic (3) HTN (hypertension) Status: Chronic (4) CLL (chronic lymphocytic leukemia) Status: Chronic (5) Gastroparesis Status: Chronic (6) Pneumonia Status: Suspected (7) CKD (chronic kidney disease), stage III Status: Chronic (8) Neutropenia Status: Acute (9) Parainfluenza virus bronchitis Status: Acute (10) Chronic back pain Status: Chronic - Time Spent with Patient Total time spent is greater than 50% in coordination of care (as documented) at patient's floor/unit and/or counseling patient: Internal Medicine: Result - Labs CBC & Chem 7: 06/23/18 16:27 06/21/18 03:27 Labs: Short CBC 06/23/18 Range/Units 16:27 WBC 8.4 (4.3-11.1) K/mcL Hgb 12.2 (11.5-15.4) g/dL Hct 37.4 (35.3-44.9) % Plt Count 108 L (140-400) K/mcL Neutrophils # 1.3 L (1.6-8.9) K/mcL - ABG Interpretation ABG results: PT/INR, D-dimer PT 11.8 Seconds (9.4-12.1) 06/17/18 09:27 - Attending Attestation I examined this patient and my medical decision-making was reviewed with the Yogesh valle Physician. I agree with the documented findings, disposition and treatment plan as described except to the extent set forth below. <Cristi Hernandez - Last Filed: 06/23/18 11:31> (1) Community acquired pneumonia Qualifiers: Laterality: left Lung location: lower lobe of lung Qualified Code(s): J18.1 - Lobar pneumonia, unspecified organism (2) Type 2 diabetes mellitus Qualifiers: Diabetes mellitus intermediate insulin use: with intermediate use Diabetes mellitus complication status: with kidney complications Diabetes mellitus complication detail: with chronic kidney disease Chronic kidney disease stage: stage 3 (moderate) Qualified Code(s): E11.22 - Type 2 diabetes mellitus with diabetic chronic kidney disease; N18.3 - Chronic kidney disease, stage 3 (moderate); 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 transplanted heart: robinson heart Associated angina: without angina Qualified Code(s): I25.10 - Atherosclerotic heart disease of robinson coronary artery without angina pectoris <Yoel Anderson - Last Filed: 06/24/18 08:47> (1) Type 2 diabetes mellitus Qualifiers: Diabetes mellitus intermediate insulin use: with termination clerk use Diabetes mellitus complication status: with kidney complications Diabetes mellitus complication detail: with chronic kidney disease Chronic kidney disease stage: stage 3 (moderate) Qualified Code(s): E11.22 - Type 2 diabetes mellitus with diabetic chronic kidney disease; N18.3 - Chronic kidney disease, stage 3 (moderate); 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 transplanted heart: robinson heart Associated angina: without angina Qualified Code(s): I25.10 - Atherosclerotic heart disease of robinson coronary artery without angina pectoris (3) HTN (hypertension) Qualifiers: Hypertension type: essential hypertension Qualified Code(s): I10 - Essential (primary) hypertension (6) Pneumonia Qualifiers: Pneumonia type: due to other aerobic Gram-negative bacteria Laterality: left Lung location: lower lobe of lung Qualified Code(s): J15.6 - Pneumonia due to other Gram-negative bacteria (8) Neutropenia Qualifiers: Neutropenia type: unspecified Qualified Code(s): D70.9 - Neutropenia, unspecified (10) Chronic back pain Qualifiers: Back pain location: thoracic back pain Back pain laterality: bilateral Qualified Code(s): M54.6 - Pain in thoracic spine; G89.29 - Other chronic pain
--- NOTE | 2018-06-23 09:50 | Physician Discharge Referral ---
Home Health/Hosp Referral Info Transfer to: Home Health Provider in Charge Post Discharge: PCP - Diagnosis (1) Community acquired pneumonia Priority: Primary Status: Acute (2) Type 2 diabetes mellitus Priority: Secondary Status: Chronic (3) CAD (coronary artery disease) Priority: Secondary Status: Chronic (4) LENORE (acute kidney injury) Priority: Primary Status: Acute (5) CLL (chronic lymphocytic leukemia) Priority: Secondary Status: Chronic (6) DVT prophylaxis Priority: Secondary Status: Acute - Respiratory Orders Smoking Cessation: Smoking cessation has been advised. For more information, call the [place] Tobacco Quit Line at 6-753-ELIC-NOW. - Diet/Nutrition Diet/Nutrition Orders: Regular - Activity Activity Orders: Ambulate - Services Needed Following services are medically necessary services: Nursing, Physical Therapy, Occupational Therapy, Med Social Work - Transfer Medications Home Medications: Aspirin 81 mg PO DAILY 04/05/15 [History] Topiramate [Topamax] 25 mg PO BID 08/23/15 [History] Folic Acid 1 mg PO DAILY #30 tablet 09/18/15 [Rx] Primidone [Mysoline] 50 mg PO HS 02/28/16 [History] Ascorbic Acid [Vitamin C] 500 mg PO DAILY 03/06/16 [History] Ferrous Sulfate [Iron] 325 mg PO DAILY 03/06/16 [History] Fluticasone Propionate Nasal [Flonase] 2 spray NS DAILY 11/26/16 [History] Insulin Glargine/Lixisenatide [Soliqua 100 Unit-33 Mcg/ml Pen] 60 unit SQ HS 11/26/16 [History] Tramadol HCl [Ultram] 50 mg PO TID 11/26/16 [History] Cyanocobalamin (Vitamin B-12) [Vitamin B-12] 500 mcg PO DAILY 05/06/17 [History] Linagliptin [Tradjenta] 5 mg PO DAILY 05/06/17 [History] Loratadine [Claritin] 10 mg PO DAILY 05/06/17 [History] Metoprolol XL (24 HR) Succ [Toprol Xl] 25 mg PO DAILY 05/06/17 [History] Pioglitazone [Actos] 15 mg PO DAILY 05/06/17 [History] Acetaminophen [Tylenol] 650 mg PO Q6HR PRN tablet 07/10/17 [Rx] Albuterol Neb [Proventil Neb] 2.5 mg IH Q4H PRN #1 inhsol 09/22/17 [Rx] Omeprazole [PriLOSEC] 40 mg PO DAILY 11/05/17 [History] Docusate [Colace] 100 mg PO DAILY #30 capsule 11/11/17 [Rx] Atorvastatin [Lipitor] 40 mg PO HS 12/06/17 [History] Ergocalciferol (VITAMIN D2) [Vitamin D2] 50,000 unit PO WE 12/06/17 [History] Insulin Regular Human [Humulin R] 0 - 10 units SQ TIDWM 12/06/17 [History] raNITIdine HCl [Zantac] 150 mg PO DAILY 12/06/17 [History] Doxepin [Sinequan] 25 mg PO HS #30 capsule 12/11/17 [Rx] Furosemide [Lasix] 20 mg PO DAILY 01/16/18 [History] Albuterol Sulfate [Albuterol Inhaler] 1 puff IH Q6HR PRN #1 inhaler 06/08/18 [Rx] Loperamide [Imodium] 2 mg PO BID PRN 06/17/18 [History] Metoclopramide [Reglan] 10 mg PO TID PRN 06/17/18 [History] Oxybutynin [Ditropan] 5 mg PO BID 06/17/18 [History] Pregabalin [Lyrica] 100 mg PO TID 06/17/18 [History] Sucralfate [Carafate] 10 ml PO QID 06/17/18 [History] Allergies/Adverse Reactions: Allergy/AdvReac Type Severity Reaction Status Date / Time metformin Allergy Nausea Verified 06/08/18 21:09 Sulfa (Sulfonamide Allergy Nausea Verified 06/08/18 21:09 Antibiotics) sulfamethoxazole Allergy Nausea Verified 06/08/18 21:09 [From Bactrim] trimethoprim [From Bactrim] Allergy Nausea Verified 06/08/18 21:09 Certification: Further, I certify that my clinical findings support that this patient is homebound (i.e. absences from home require considerable and taxing effort and are for medical reasons or anglican services or infrequently or short duration when for other reasons) because: Homebound Reason: Leaving home requires considerable and taxing effort due to condition Attestation: My signature below is to certify that this patient is under my care and that I, or nurse practitioner, or a physician's advertising assistant working with me, has a [id number] encounter with this patient.
[2018-06-23 16:41] LABS: Hematocrit 37.4 % (35.3-44.9); Hemoglobin 12.2 g/dL (11.5-15.4); Mean Corpuscular HGB Conc 32.6 g/dL (31.6-35.5); Mean Corpuscular Hemoglobin 28.7 pg (28.0-33.3); Mean Platelet Volume 10.3 fL (9.4-12.4); Monocytes # 0.5 K/mcL (0.0-1.3); Platelet Count 108 K/mcL (140-400); Red Blood Count 4.25 M/mcL (3.82-4.97); Red Cell Distribution Width 13.6 % (11.5-14.5)
[2018-06-23 17:09] LABS: Eosinophils # 0.5 K/mcL (0.0-0.6); Lymphocytes # 6.1 K/mcL (0.6-4.6); Neutrophils # 1.3 K/mcL (1.6-8.9); Platelet Estimate Decreased (Normal); Reactive Lymphocytes Present (Not Present)
[2018-06-23 17:45] VITALS: BP 116/76
[2018-06-23] MEDS: Ondansetron 4 MG/2 ML VIAL IVP PRN (18:40)
== END 2018-06-23 19:00 | disposition home or self-care (01) | DRG 193 ==
LOC: 3BNU 22:18 → EMEROOARM 22:18 → SUATTDRO 06-17 02:55 → 3BNU 06-17 03:37
PROVIDERS: ADMIT Internal Medicine; ATTEND Internal Medicine

== ENCOUNTER 2018-12-13 21:30 | Inpatient (IN) ==
[2018-12-13 23:40] LABS: Basophils # 0.1 K/mcL (0.0-0.2); Basophils % 0.7 %; Eosinophils # 0.1 K/mcL (0.0-0.6); Eosinophils % 0.7 %; Hematocrit 45.6 % (35.3-44.9); Hemoglobin 14.4 g/dL (11.5-15.4); Immature Granulocytes % 1.5 % (0-4); Lymphocytes # 8.7 K/mcL (0.6-4.6); Lymphocytes % 55.9 %; Mean Corpuscular HGB Conc 31.6 g/dL (31.6-35.5); Mean Corpuscular Hemoglobin 28.5 pg (28.0-33.3); Mean Corpuscular Volume 90.1 fL (83.0-100.0); Mean Platelet Volume 11.1 fL (9.4-12.4); Monocytes # 0.9 K/mcL (0.0-1.3); Monocytes % 5.7 %; Neutrophils # 5.5 K/mcL (1.6-8.9); Platelet Count 174 K/mcL (140-400); Red Blood Count 5.06 M/mcL (3.82-4.97); Red Cell Distribution Width 13.2 % (11.5-14.5); Segmented Neutrophils % 35.5 %; White Blood Count 15.5 K/mcL (4.3-11.1)
[2018-12-13 23:45] LABS: Bilirubin,Urine Negative (Negative); Blood,Urine Negative (Negative); Clarity,Urine Cloudy (Clear); Color,Urine Yellow (Yellow); Glucose,Urine (UA) Normal (Normal); Ketones,Urine Negative (Negative); Leukocyte Esterase,Urine Large (Negative); Nitrite,Urine Negative (Negative); Protein,Urine 30 mg/dL (Neg-Trace); Specific Gravity,Urine 1.025 (1.010-1.025); Urobilinogen,Urine Normal (Normal)
[2018-12-13 23:47] LABS: Bacteria,Urine Many per hpf (None-Few); Hyaline Casts,Urine Moderate per lpf (None-Few); RBC,Urine 0-3 per hpf (0-3); Squamous Epithelial Cell,Urine Many per lpf (None-Few); WBC,Urine 50-100 per hpf (0-3)
[2018-12-14] LABS: Albumin 4.6 g/dL (3.5-5.7); Albumin/Globulin Ratio 2.1 (1.1-2.2); Bilirubin,Direct 0.1 mg/dL (0.0-0.2); Bilirubin,Indirect 0.2 mg/dL (0.0-1.2); Bilirubin,Total 0.3 mg/dL (0.3-1.0); Calcium 9.6 mg/dL (8.6-10.3); Globulin 2.2 g/dL (2.4-3.5); Potassium 3.7 mEq/L (3.5-5.1); Total Protein 6.8 g/dL (6.4-8.9)
[2018-12-14 00:01] LABS: Platelet Estimate Normal (Normal)
[2018-12-14] MEDS ORDERED: 0.9 % Sodium Chloride 1,000 ML IVC ONE (00:37)
[2018-12-14] MEDS ORDERED: Morphine Sulfate 2 MG/ML SYRINGE IVP ONE (00:41)
[2018-12-14] MEDS ORDERED: Piperacillin/Tazobactam 3.375 GM in 0.9 % Sodium Chloride Mini Bag 100 ML IVPB ONE (01:39)
[2018-12-14] MEDS: cefTRIAXone 1,000 MG in 0.9 % Sodium Chloride Mini Bag 100 ML IVPB ONE ×2 (03:27→03:47)
[2018-12-14] MEDS ORDERED: Naloxone 0.4 MG/ML INJ IVP PRN (06:16)
[2018-12-14] MEDS ORDERED: D5% in Water 1,000 ML IVC PRN (06:33)
[2018-12-14] MEDS ORDERED: *HR* Dextrose 50 % in Water (Syg) 50 ML SYRINGE IVP PRN (06:33)
[2018-12-14] MEDS ORDERED: Dextrose Gel 15 GM/37.5 ML TUBE PO PRN ×2 (06:33)
[2018-12-14 07:05] LABS: Basophils # 0.1 K/mcL (0.0-0.2); Basophils % 0.7 %; Eosinophils # 0.1 K/mcL (0.0-0.6); Eosinophils % 0.8 %; Hematocrit 41.8 % (35.3-44.9); Immature Granulocytes % 1.6 % (0-4); Lymphocytes % 67.4 %; Mean Corpuscular HGB Conc 31.1 g/dL (31.6-35.5); Mean Corpuscular Hemoglobin 28.9 pg (28.0-33.3); Mean Corpuscular Volume 92.9 fL (83.0-100.0); Mean Platelet Volume 11.1 fL (9.4-12.4); Monocytes # 0.5 K/mcL (0.0-1.3); Monocytes % 5.5 %; Neutrophils # 2.2 K/mcL (1.6-8.9); Nucleated Red Blood Cells 0.2 /100 WBC (0); Platelet Count 118 K/mcL (140-400); Red Cell Distribution Width 13.2 % (11.5-14.5); White Blood Count 9.1 K/mcL (4.3-11.1)
[2018-12-14 07:16] LABS: Lymphocytes # 6.1 K/mcL (0.6-4.6); Platelet Estimate Slight Decrease (Normal)
[2018-12-14 07:21] LABS: BUN/Creatinine Ratio 22 (6-26); Blood Urea Nitrogen 24 mg/dL (8-23); Calcium 8.8 mg/dL (8.6-10.3); Carbon Dioxide 25 mEq/L (23-29); Chloride 107 mEq/L (98-107); Glucose 84 mg/dL (70-105); Osmolality,Calculated 299 (280-300); Potassium 3.7 mEq/L (3.5-5.1); Sodium 143 mEq/L (136-145); eGFR For African Americans > 60 (> 60); eGFR For Non-African Americans 51 (> 60)
[2018-12-14] MEDS ORDERED: Albuterol 2.5 MG/3 ML NEBULIZER IH PRN (07:38)
[2018-12-14] MEDS: Insulin LISPRO 300 UNITS/3 ML VIAL SQ SCH ×4 (07:58→20:42)
[2018-12-14] MEDS ORDERED: Famotidine 20 MG TABLET PO SCH (09:00)
[2018-12-14] MEDS: Cyanocobalamin (B-12) 1,000 MCG TABLET PO SCH (09:15)
[2018-12-14] MEDS: Ascorbic Acid 500 MG TABLET PO SCH (09:16)
[2018-12-14] MEDS: Folic Acid 1 MG TABLET PO SCH (09:16)
[2018-12-14] MEDS: Pregabalin 50 MG CAPSULE PO SCH ×3 (09:16→20:39)
[2018-12-14] MEDS: Metoprolol XL (24 HR) Succ 25 MG TAB.ER.24H PO SCH (09:16)
[2018-12-14] MEDS: Topiramate 25 MG TABLET PO SCH ×2 (09:17→20:39)
[2018-12-14] MEDS: Aspirin 81 MG TAB.CHEW PO SCH (09:17)
[2018-12-14] MEDS: Loratadine 10 MG TABLET PO SCH (09:17)
[2018-12-14] MEDS: Fluticasone Propionate Nasal 50 MCG/SPRAY BOTTLE NS SCH (09:19)
[2018-12-14] MEDS: Acetaminophen 325 MG TABLET PO PRN (10:00)
[2018-12-14] MEDS ORDERED: *HR* OxyCODONE/APAP 5/325 TABLET PO ONE (13:03)
[2018-12-14] MEDS: *HR* Heparin 5,000 UNIT/ML VIAL SQ SCH ×2 (14:17→20:39)
[2018-12-14] MEDS: Primidone 50 MG TABLET PO SCH (20:39)
[2018-12-15] MEDS: *HR* OxyCODONE Immed Rel 5 MG TABLET PO PRN ×6 (00:05→22:12)
[2018-12-15] MEDS: *HR* Heparin 5,000 UNIT/ML VIAL SQ SCH ×3 (05:32→21:07)
[2018-12-15 06:57] LABS: Hematocrit 37.5 % (35.3-44.9); Hemoglobin 11.8 g/dL (11.5-15.4); Mean Corpuscular HGB Conc 31.5 g/dL (31.6-35.5); Mean Corpuscular Hemoglobin 28.7 pg (28.0-33.3); Mean Corpuscular Volume 91.2 fL (83.0-100.0); Platelet Count 105 K/mcL (140-400); Red Blood Count 4.11 M/mcL (3.82-4.97); Red Cell Distribution Width 13.3 % (11.5-14.5); White Blood Count 8.6 K/mcL (4.3-11.1)
[2018-12-15 07:15] LABS: Calcium 9.2 mg/dL (8.6-10.3); Potassium 3.9 mEq/L (3.5-5.1)
[2018-12-15] MEDS: Metoprolol XL (24 HR) Succ 25 MG TAB.ER.24H PO SCH (08:18)
[2018-12-15] MEDS: Ascorbic Acid 500 MG TABLET PO SCH (08:18)
[2018-12-15] MEDS: Cyanocobalamin (B-12) 1,000 MCG TABLET PO SCH (08:18)
[2018-12-15] MEDS: Loratadine 10 MG TABLET PO SCH (08:18)
[2018-12-15] MEDS: Topiramate 25 MG TABLET PO SCH ×2 (08:18→21:06)
[2018-12-15] MEDS: Pregabalin 50 MG CAPSULE PO SCH ×3 (08:18→21:06)
[2018-12-15] MEDS: cefTRIAXone 1,000 MG in Water for inj. (sterile) 10 ML IVP SCH (08:19)
[2018-12-15] MEDS: Folic Acid 1 MG TABLET PO SCH (08:19)
[2018-12-15] MEDS: Aspirin 81 MG TAB.CHEW PO SCH (08:19)
[2018-12-15] MEDS: Insulin LISPRO 300 UNITS/3 ML VIAL SQ SCH ×4 (08:19→21:07)
[2018-12-15] MEDS: Fluticasone Propionate Nasal 50 MCG/SPRAY BOTTLE NS SCH (12:34)
[2018-12-15] MEDS: Primidone 50 MG TABLET PO SCH (21:06)
[2018-12-15] MEDS: Acetaminophen 325 MG TABLET PO PRN (23:58)
[2018-12-16] MEDS ORDERED: hydrOXYzine pamoate 25 MG CAPSULE PO PRN (00:12)
[2018-12-16] MEDS: *HR* OxyCODONE Immed Rel 5 MG TABLET PO PRN ×3 (04:28→17:31)
[2018-12-16] MEDS: *HR* Heparin 5,000 UNIT/ML VIAL SQ SCH ×3 (04:29→21:54)
[2018-12-16] MEDS: Loratadine 10 MG TABLET PO SCH (08:23)
[2018-12-16] MEDS: Topiramate 25 MG TABLET PO SCH ×2 (08:23→20:23)
[2018-12-16] MEDS: Pregabalin 50 MG CAPSULE PO SCH ×3 (08:23→20:22)
[2018-12-16] MEDS: Ascorbic Acid 500 MG TABLET PO SCH (08:23)
[2018-12-16] MEDS: Cyanocobalamin (B-12) 1,000 MCG TABLET PO SCH (08:23)
[2018-12-16] MEDS: Fluticasone Propionate Nasal 50 MCG/SPRAY BOTTLE NS SCH (08:24)
[2018-12-16] MEDS: Aspirin 81 MG TAB.CHEW PO SCH (08:24)
[2018-12-16] MEDS: cefTRIAXone 1,000 MG in Water for inj. (sterile) 10 ML IVP SCH (08:24)
[2018-12-16] MEDS: Metoprolol XL (24 HR) Succ 25 MG TAB.ER.24H PO SCH (08:24)
[2018-12-16] MEDS: Folic Acid 1 MG TABLET PO SCH (08:24)
[2018-12-16] MEDS: Insulin LISPRO 300 UNITS/3 ML VIAL SQ SCH ×4 (08:25→21:53)
[2018-12-16] MEDS: Acetaminophen 325 MG TABLET PO PRN (19:48)
[2018-12-16] MEDS: Primidone 50 MG TABLET PO SCH (20:23)
[2018-12-17] MEDS: *HR* OxyCODONE Immed Rel 5 MG TABLET PO PRN ×3 (02:50→18:50)
[2018-12-17 05:25] LABS: Blood Urea Nitrogen 16 mg/dL (8-23); Calcium 9.1 mg/dL (8.6-10.3); Carbon Dioxide 25 mEq/L (23-29); Chloride 106 mEq/L (98-107); Glucose 209 mg/dL (70-105); Osmolality,Calculated 295 (280-300); Potassium 3.9 mEq/L (3.5-5.1); Sodium 139 mEq/L (136-145)
[2018-12-17 05:40] LABS: BUN/Creatinine Ratio 17 (6-26); eGFR For African Americans > 60 (> 60); eGFR For Non-African Americans > 60 (> 60)
[2018-12-17 06:08] LABS: Basophils % 0.4 %; Eosinophils # 0.1 K/mcL (0.0-0.6); Eosinophils % 0.9 %; Hematocrit 39.5 % (35.3-44.9); Hemoglobin 12.3 g/dL (11.5-15.4); Immature Granulocytes % 1.3 % (0-4); Lymphocytes # 6.4 K/mcL (0.6-4.6); Lymphocytes % 64.9 %; Mean Corpuscular HGB Conc 31.1 g/dL (31.6-35.5); Mean Corpuscular Hemoglobin 28.3 pg (28.0-33.3); Mean Corpuscular Volume 90.8 fL (83.0-100.0); Mean Platelet Volume 11.8 fL (9.4-12.4); Monocytes # 0.4 K/mcL (0.0-1.3); Monocytes % 4.1 %; Neutrophils # 2.8 K/mcL (1.6-8.9); Nucleated Red Blood Cells 0.2 /100 WBC (0); Platelet Count 105 K/mcL (140-400); Red Blood Count 4.35 M/mcL (3.82-4.97); Red Cell Distribution Width 13.1 % (11.5-14.5); Segmented Neutrophils % 28.4 %; White Blood Count 9.8 K/mcL (4.3-11.1)
[2018-12-17] MEDS: *HR* Heparin 5,000 UNIT/ML VIAL SQ SCH ×3 (06:20→21:22)
[2018-12-17] MEDS: Cyanocobalamin (B-12) 1,000 MCG TABLET PO SCH (08:13)
[2018-12-17] MEDS: Topiramate 25 MG TABLET PO SCH ×2 (08:13→21:21)
[2018-12-17] MEDS: Pregabalin 50 MG CAPSULE PO SCH ×3 (08:13→21:22)
[2018-12-17] MEDS: Loratadine 10 MG TABLET PO SCH (08:13)
[2018-12-17] MEDS: Ascorbic Acid 500 MG TABLET PO SCH (08:13)
[2018-12-17] MEDS: Folic Acid 1 MG TABLET PO SCH (08:13)
[2018-12-17] MEDS: Aspirin 81 MG TAB.CHEW PO SCH (08:13)
[2018-12-17] MEDS: Metoprolol XL (24 HR) Succ 25 MG TAB.ER.24H PO SCH (08:14)
[2018-12-17] MEDS: Insulin LISPRO 300 UNITS/3 ML VIAL SQ SCH ×4 (08:14→21:23)
[2018-12-17] MEDS: Fluticasone Propionate Nasal 50 MCG/SPRAY BOTTLE NS SCH (08:15)
[2018-12-17] MEDS: cefTRIAXone 1,000 MG in Water for inj. (sterile) 10 ML IVP SCH (08:17)
[2018-12-17] MEDS ORDERED: Morphine Sulfate 2 MG/ML SYRINGE IVP ONE (12:53)
[2018-12-17] MEDS: Primidone 50 MG TABLET PO SCH (21:22)
[2018-12-18] MEDS: *HR* OxyCODONE Immed Rel 5 MG TABLET PO PRN ×4 (01:35→13:22)
[2018-12-18] MEDS: *HR* Heparin 5,000 UNIT/ML VIAL SQ SCH ×2 (06:00→13:22)
[2018-12-18 07:00] LABS: Basophils % 0.4 %; Eosinophils % 0.7 %; Mean Corpuscular HGB Conc 31.9 g/dL (31.6-35.5); Mean Platelet Volume 11.4 fL (9.4-12.4); Monocytes % 3.8 %; Red Cell Distribution Width 13.1 % (11.5-14.5)
[2018-12-18 07:02] LABS: Eosinophils # 0.1 K/mcL (0.0-0.6); Hematocrit 38.6 % (35.3-44.9); Hemoglobin 12.3 g/dL (11.5-15.4); Immature Granulocytes % 1.5 % (0-4); Immature Platelets 7.3 % (1.1-6.1); Lymphocytes % 61.5 %; Mean Corpuscular Hemoglobin 28.5 pg (28.0-33.3); Mean Corpuscular Volume 89.4 fL (83.0-100.0); Monocytes # 0.4 K/mcL (0.0-1.3); Red Blood Count 4.32 M/mcL (3.82-4.97); Segmented Neutrophils % 32.1 %; White Blood Count 9.8 K/mcL (4.3-11.1)
[2018-12-18 07:06] LABS: Neutrophils # 3.2 K/mcL (1.6-8.9); Platelet Count 95 K/mcL (140-400)
[2018-12-18 07:24] LABS: Potassium 3.8 mEq/L (3.5-5.1)
[2018-12-18 07:36] LABS: Nucleated Red Blood Cells 0.3 /100 WBC (0)
[2018-12-18 07:38] LABS: Basophils # 0.1 K/mcL (0.0-0.2); Basophils % 0.6 %; Eosinophils # 0.1 K/mcL (0.0-0.6); Eosinophils % 0.7 %; Hematocrit 38.5 % (35.3-44.9); Hemoglobin 12.5 g/dL (11.5-15.4); Immature Granulocytes % 1.3 % (0-4); Immature Platelets 6.4 % (1.1-6.1); Lymphocytes # 6.7 K/mcL (0.6-4.6); Lymphocytes % 61.9 %; Mean Corpuscular HGB Conc 32.5 g/dL (31.6-35.5); Mean Corpuscular Hemoglobin 29.1 pg (28.0-33.3); Mean Corpuscular Volume 89.5 fL (83.0-100.0); Mean Platelet Volume 11.3 fL (9.4-12.4); Monocytes # 0.4 K/mcL (0.0-1.3); Monocytes % 4.1 %; Neutrophils # 3.4 K/mcL (1.6-8.9); Red Cell Distribution Width 13.2 % (11.5-14.5); Segmented Neutrophils % 31.4 %; White Blood Count 10.8 K/mcL (4.3-11.1)
[2018-12-18] MEDS: Fluticasone Propionate Nasal 50 MCG/SPRAY BOTTLE NS SCH (07:38)
[2018-12-18] MEDS: Insulin LISPRO 300 UNITS/3 ML VIAL SQ SCH ×3 (07:39→16:33)
[2018-12-18 07:40] LABS: Platelet Count 94 K/mcL (140-400)
[2018-12-18] MEDS: Aspirin 81 MG TAB.CHEW PO SCH (07:42)
[2018-12-18] MEDS: Loratadine 10 MG TABLET PO SCH (07:42)
[2018-12-18] MEDS: Folic Acid 1 MG TABLET PO SCH (07:43)
[2018-12-18] MEDS: cefTRIAXone 1,000 MG in Water for inj. (sterile) 10 ML IVP SCH (07:43)
[2018-12-18] MEDS: Pregabalin 50 MG CAPSULE PO SCH ×2 (07:43→13:22)
[2018-12-18] MEDS: Topiramate 25 MG TABLET PO SCH (07:44)
[2018-12-18] MEDS: Metoprolol XL (24 HR) Succ 25 MG TAB.ER.24H PO SCH (07:44)
[2018-12-18] MEDS: Cyanocobalamin (B-12) 1,000 MCG TABLET PO SCH (07:44)
[2018-12-18] MEDS: Ascorbic Acid 500 MG TABLET PO SCH (07:45)
[2018-12-18 07:55] LABS: BUN/Creatinine Ratio 17 (6-26); Blood Urea Nitrogen 19 mg/dL (8-23); Calcium 8.6 mg/dL (8.6-10.3); Carbon Dioxide 25 mEq/L (23-29); Chloride 102 mEq/L (98-107); Glucose 283 mg/dL (70-105); Magnesium 1.5 mg/dL (1.6-2.6); Osmolality,Calculated 295 (280-300); Sodium 136 mEq/L (136-145); eGFR For African Americans > 60 (> 60); eGFR For Non-African Americans 50 (> 60)
[2018-12-18 14:41] VITALS: BP 112/76
== END 2018-12-18 18:40 | DRG 690 ==
LOC: EMEROOARM 21:30 → 3ANU 21:30 → SUATTDRO 12-14 02:24 → 3ANU 12-14 05:06
PROVIDERS: ADMIT Family Medicine; ATTEND Pharmacist

== ENCOUNTER 2019-02-18 19:08 | Inpatient (IN) ==
[2019-02-18] MEDS ORDERED: Ondansetron 4 MG/2 ML VIAL IVP ONE (19:26)
[2019-02-18] MEDS ORDERED: Morphine Sulfate 2 MG/ML SYRINGE IVP ONE (19:26)
[2019-02-18] MEDS ORDERED: Isovue-370 500 ML BOTTLE IVP ONE (19:27)
--- NOTE | 2019-02-18 19:45 | Emergency Department Note ---
Disposition Clinical Impression: Chest wall pain, Dehydration, CLL (chronic lymphocytic leukemia) Chest pain Qualifiers: Chest pain type: unspecified Qualified Code(s): R07.9 - Chest pain, unspecified Nausea & vomiting Qualifiers: Vomiting type: unspecified Vomiting Intractability: intractable Qualified Code(s): R11.2 - Nausea with vomiting, unspecified Leukocytosis Qualifiers: Leukocytosis type: unspecified Qualified Code(s): D72.829 - Elevated white blood cell count, unspecified Chronic back pain Qualifiers: Back pain location: back pain in unspecified location Qualified Code(s): M54.9 - Disposition: Admitted As Inpatient Condition: Fair Time of Disposition: 23:54 Chest Pain HPI - General Chief Complaint: ED Shortness of Breath/Dyspnea Stated Complaint: STEFFEN Time Seen by Provider: 02/18/19 19:19 Source: EMS Limitations: no limitations Vital Signs Reviewed: Yes Nursing Notes Reviewed: Yes - History of Present Illness Pt complaint: chest pain Severity scale (1-10): 10 - Related Data Home Medications Medication Instructions Recorded Confirmed Primidone [Mysoline] 50 mg PO HS 02/28/16 02/18/19 Ascorbic Acid [Vitamin C] 500 mg PO DAILY 03/06/16 02/18/19 Cyanocobalamin (Vitamin B-12) 500 mcg PO DAILY 05/06/17 02/18/19 [Vitamin B-12] Linagliptin [Tradjenta] 5 mg PO DAILY 05/06/17 02/18/19 Atorvastatin [Lipitor] 40 mg PO HS 12/06/17 02/18/19 Furosemide [Lasix] 20 mg PO DAILY PRN 01/16/18 02/18/19 Loperamide [Imodium] 2 mg PO BID 06/17/18 02/18/19 Metoclopramide [Reglan] 10 mg PO TID 06/17/18 02/18/19 Doxepin HCl 20 mg PO HS 12/15/18 02/18/19 Insulin LISPRO [Humalog Kwikpen 0 unit SQ QIDAC 12/15/18 02/18/19 U-100] Metoprolol [Lopressor] 25 mg PO DAILY 02/18/19 02/18/19 Omeprazole [PriLOSEC] 40 mg PO DAILY 02/18/19 02/18/19 Pioglitazone [Actos] 15 mg PO DAILY 02/18/19 02/18/19 Previous Rx's Medication Instructions Recorded Aspirin 81 mg PO DAILY tab.chew 12/18/18 Docusate [Colace] 100 mg PO DAILY capsule 12/18/18 Ferrous Sulfate 325 mg PO DAILY tablet 12/18/18 Oxycodone HCl/Acetaminophen 1 each PO Q6HR PRN 7 Days #30 12/18/18 [Percocet 5-325 mg Tablet] tablet Pregabalin [Lyrica] 100 mg PO TID 30 Days #90 capsule 12/18/18 Sucralfate [Carafate] 1 gm PO QIDAC udc 12/18/18 Allergies Allergy/AdvReac Type Severity Reaction Status Date / Time metformin Allergy Nausea Verified 12/14/18 00:45 Sulfa (Sulfonamide Allergy Nausea Verified 12/14/18 00:45 Antibiotics) sulfamethoxazole Allergy Nausea Verified 12/14/18 00:45 [From Bactrim] trimethoprim [From Bactrim] Allergy Nausea Verified 12/14/18 00:45 Constitutional: Denies: fever, chills, weakness, weight change Eyes: Denies: eye pain, eye discharge, vision change ENT ED: Denies: ear pain, throat pain, dental pain, hearing loss, epistaxis, congestion, dysphagia Cardiovascular: Reports: chest pain. Denies: palpitations, dyspnea on exertion, edema, syncope Respiratory: Reports: dyspnea. Denies: cough, wheezes, hemoptysis, stridor Gastrointestinal: Reports: abdominal pain, nausea. Denies: vomiting, diarrhea, constipation, hematemesis, melena, hematochezia Genitourinary: Denies: dysuria, frequency, hematuria, discharge Musculoskeletal: Reports: back pain. Denies: neck pain, arthralgia, myalgia Integumentary: Denies: rash, abrasion, lesions Neurological: Denies: headache, weakness, numbness, paresthesias, confusion, abnormal gait, vertigo Psychiatric: Denies: anxiety, depression, suicidal thoughts, homicidal thoughts, auditory hallucinations, visual hallucinations Endocrine: Denies: fatigue Hematological/Lymphatic: Denies: easy bleeding, easy bruising Allergic/Immunologic: Denies: facial swelling, urticaria Chest Pain PMH - Past Medical History Medical history: Reports: cancer, COPD, diabetes, GERD, hypertension, renal disease Surgical history: Reports: appendectomy, cholecystectomy, knee replacement, THERESE/BSO Psychiatric history: Reports: depression DATA WAREHOUSE ANALYST history: Reports: no DATA WAREHOUSE ANALYST history - Social History Smoking Status: Never smoker Alcohol use: Reports: none Drug use: Reports: none Physical Exam - General Limitations: no limitations General appearance: alert - Head Head exam: atraumatic, normocephalic, normal inspection - Eye Eye exam: Present: normal appearance, PERRL, EOMI - Expanded Eye Exam Pupils: Left: reactive - ENT ENT exam: normal exam, normal oropharynx, mucous membranes dry - Expanded ENT Exam External ear exam: Present: normal external inspection Mouth exam: Present: normal external inspection Teeth exam: Present: normal inspection Throat exam: Present: normal inspection - Neck Neck exam: Present: normal inspection, full ROM, trachea midline - Chest Chest inspection: Present: normal inspection, symmetric chest wall rise, tend erness - Respiratory Respiratory exam: Present: normal lung sounds bilaterally, respiratory distress. Absent: wheezes, stridor - Cardiovascular Cardiovascular exam: Present: regular rate, normal rhythm, normal heart sounds, other (Anterior left-sided chest wall tenderness that reproduces the majority of her pain.) - Abdominal Exam Abdominal exam: Present: soft, normal bowel sounds. Absent: tenderness (mild), distention, guarding, rebound, rigidity - Extremities Exam Extremities exam: Present: normal inspection, full ROM, normal capillary refill. Absent: tenderness, pedal edema - Expanded Upper Extremity Exam Shoulder exam: Present: normal inspection, full ROM. Absent: tenderness Arm exam: Present: normal inspection, full ROM. Absent: tenderness Elbow exam: Present: normal inspection, full ROM. Absent: tenderness Forearm/Wrist exam: Present: normal inspection, full ROM. Absent: tenderness Hand exam: Present: normal inspection, full ROM. Absent: tenderness Vascular exam: Normal: capillary refill, radial pulse - Expanded Lower Extremity Exam Hip/Pelvis exam: Present: normal inspection, full ROM. Absent: tenderness Upper leg exam: Present: normal inspection, full ROM. Absent: tenderness Knee exam: Present: normal inspection, full ROM. Absent: tenderness Lower leg exam: Present: normal inspection, full ROM. Absent: tenderness Ankle exam: Present: normal inspection, full ROM. Absent: tenderness Foot/toe exam: Present: normal inspection, full ROM. Absent: tenderness Neurovascular/Tendon exam: Present: normal capillary refill. Absent: pulse deficit, motor deficit, sensory deficit, tendon deficit - Back Exam Back exam: Present: normal inspection, full ROM. Absent: tenderness - Neurological Exam Neurological exam: Present: alert, oriented X3, CN II-XII intact - Expanded Neurological Exam Patient oriented to: Present: person, place, time Speech: Present: fluid speech. Absent: receptive aphasia, expressive aphasia, total aphasia Cranial nerves: EOM function (II, III, IV, ): Normal, facial sensation (V): Normal, facial palsy (VII): Normal, gag reflex (IX): Normal, spinal accessory function (XI): Normal, tongue deviation (XII): Normal Coma Scale Eye Opening: Spontaneous Coma Scale Motor Response: Obeys Commands Coma Scale Verbal Response: Oriented Coma Scale Total: 15 - Psychiatric Psychiatric exam: Present: normal affect, normal mood - Skin Skin exam: Present: warm, dry, intact, normal color Course Course Narrative: Patient placed exam room. H&P obtained. I was called immediately bedside. EKG was reviewed. She was having substernal chest pain mostly on the left side as well radiating through to her back denies radiation to her neck or jaw or arm. A stat chest x-ray is obtained. However with her pain being severe she was sent directly to CT scan to rule out a dissection. Patient was given morphine 2 mg IV push with 4 mg Zofran IV push. I stated the bedside until she left to go to CT scan. Review old medical records several EKGs a nuclear stress test for 05/06/2017 which showed ejection fraction of 70% without any significant ischemia and was reported as a negative stress test by Dr. Westley Leon Patient also had a DVT study Doppler on 07/17/2015 which showed venous insufficiency with reflux but no DVT. Patient had carotid ultrasound which was equivocal with nonstenotic plaque noted. History of coronary artery disease., She does report having nitroglycerin today when the pain first began at the [facility] but then she stated this did not happen. He should reportedly be a DNR CC however she rescinded this during my examination. Was reported she had chronic kidney disease stage III however reviewing her last creatinine was 0.89. Therefore a stat CTA was performed without any lab work present. Digital Pre Press Operator was paged at [phone] I did speak speak to the patient's daughter Berta, she informs me that the patient was previously at [facility] and decided that she wanted to come home. So she was released and discharged. He has chronic back pain. The daughter and patient it would be better if she is back in the jail. So she was noted to [place]. However, her pain medication was treated loosely prescribed to control her pain and upon admission to the new facility and was changed to once every 8 hours and on Thursday she took her mother to her physician and they increased the medication to 1-2 pills every 8 hours unfortunately jail was not able to give this dose as they did not have a new prescription. They were working on getting this straightened out when her pain became worse and she came here. She tells me that her mother's pain typically starts in her back and if it does not get under control he goes to her chest and her abdomen was nauseated and she has not vomited and then spirals out of control. I feel this sounds typical for her presentation after speaking to her. Patient's pain is now controlled. Lab work was reviewed. Her white cell count was not elevated. She was unable to urinate therefore straight catheter was performed. Cultures were obtained secondary to the elevated white count as well as a lactic acid. A CTA dissection study did not show any acute dissection or aneurysm in the mesenteric arteries along with the remaining abdominal arteries that were visualized were unremarkable and no signs of stenosis. Patient does appear to be clinically dehydrated as her mucous membranes are dry. Normal saline 1 L bolus was performed. Chest x-ray was reviewed and did not appreciate any infiltrate, elevation of diaphragm, free air under the diaphragm or widening mediastinum. Radiologist felt there to be lacerated congestion over on the CT scan this was not evident and she has no pitting edema either. - Reevaluation(s) Reevaluation #2: Patient is now resting comfortably. Time: 21:49 - Consultations Consultation #1: Dr Celestin was contacted. I reviewed the patient's hx with him and the EKG's Advised to add CPK Troponin was <0.03 Time: 19:47 Consultation #2: I spoke to And he will accept the patient to the hospital. I did advise her to speak to the hair spring cutter. I also advised that her pain seems this point to be typical for her exacerbation of her chronic thoracic back pain however, I feel that observation and rule out ACS Time: 23:51 Vital Signs Temperature 97.8 F 02/18/19 19:12 Pulse Rate 88 02/18/19 19:12 Respiratory Rate 19 02/18/19 19:12 Blood Pressure 139/84 02/18/19 19:12 O2 Sat by Pulse Oximetry 96 02/18/19 19:12 Temperature 98.3 F 02/19/19 00:46 Pulse Rate 86 02/19/19 00:46 Respiratory Rate 16 02/19/19 00:46 Blood Pressure 152/77 02/19/19 03:22 O2 Sat by Pulse Oximetry 94 02/19/19 00:46 Oxygen Delivery Oxygen Delivery Nasal Cannula Chest Pain - Medical Records Medical records reviewed: Yes I reviewed the patient's medical records. - Lab Data Lab results reviewed: Yes I reviewed the patient's lab results. Lab results narrative: Laboratory Tests 02/18/19 02/18/19 02/18/19 19:26 19:26 19:26 WBC RBC Hgb Hct MCV MCH MCHC RDW Plt Count MPV Immature Gran % Seg Neutrophils % Lymphocytes % Monocytes % Eosinophils % Basophils % Neutrophils # Lymphocytes # Monocytes # Eosinophils # Basophils # Nucleated RBCs/100 WBC Smudge Cells Platelet Estimate Large Platelets PT 11.2 INR 1.0 APTT 27.9 D-Dimer 336 Sodium Potassium Chloride Carbon Dioxide BUN Creatinine Est GFR ( Amer) Est GFR (Non-Af Amer) BUN/Creatinine Ratio Glucose Calculated Osmolality Calcium Total Bilirubin 0.5 Direct Bilirubin 0.1 Indirect Bilirubin 0.4 AST 12 L ALT 10 Alkaline Phosphatase 77 Creatine Kinase Troponin I B-Natriuretic Peptide 50 Serum Total Protein 6.3 L Albumin 4.3 Globulin 2.0 L Albumin/Globulin Ratio 2.2 Lipase 12 Specimen Rejected 02/18/19 02/18/19 02/18/19 19:26 20:10 20:36 WBC 16.0 H RBC 4.01 Hgb 11.6 Hct 35.8 MCV 89.3 D MCH 28.9 MCHC 32.4 RDW 14.8 H Plt Count 128 L MPV 11.2 Immature Gran % 1.4 Seg Neutrophils % 34.1 Lymphocytes % 60.7 Monocytes % 3.1 Eosinophils % 0.3 Basophils % 0.4 Neutrophils # 5.5 Lymphocytes # 9.7 H Monocytes # 0.5 Eosinophils # 0.1 Basophils # 0.1 Nucleated RBCs/100 WBC 0.3 H Smudge Cells Present A Platelet Estimate Slight Decrease L Large Platelets Present A PT INR APTT D-Dimer Sodium 138 Potassium 4.3 Chloride 99 Carbon Dioxide 23 BUN 21 Creatinine 1.03 Est GFR ( Amer) > 60 Est GFR (Non-Af Amer) 53 L BUN/Creatinine Ratio 20 Glucose 246 H Calculated Osmolality 297 Calcium 10.2 Total Bilirubin Direct Bilirubin Indirect Bilirubin AST ALT Alkaline Phosphatase Creatine Kinase Troponin I < 0.03 B-Natriuretic Peptide Serum Total Protein Albumin Globulin Albumin/Globulin Ratio Lipase Specimen Rejected MCV Delta 02/18/19 20:36 WBC RBC Hgb Hct MCV MCH MCHC RDW Plt Count MPV Immature Gran % Seg Neutrophils % Lymphocytes % Monocytes % Eosinophils % Basophils % Neutrophils # Lymphocytes # Monocytes # Eosinophils # Basophils # Nucleated RBCs/100 WBC Smudge Cells Platelet Estimate Large Platelets PT INR APTT D-Dimer Sodium Potassium Chloride Carbon Dioxide BUN Creatinine Est GFR ( Amer) Est GFR (Non-Af Amer) BUN/Creatinine Ratio Glucose Calculated Osmolality Calcium Total Bilirubin Direct Bilirubin Indirect Bilirubin AST ALT Alkaline Phosphatase Creatine Kinase 200 Troponin I B-Natriuretic Peptide Serum Total Protein Albumin Globulin Albumin/Globulin Ratio Lipase Specimen Rejected Result diagrams: 02/19/19 04:37 02/18/19 19:26 Lab Results 02/18/19 02/18/19 02/18/19 Range/Units 19:26 19:26 19:26 WBC (4.3-11.1) K/mcL RBC (3.82-4.97) M/mcL Hgb (11.5-15.4) g/dL Hct (35.3-44.9) % MCV (83.0-100.0) fL MCH (28.0-33.3) pg MCHC (31.6-35.5) g/dL RDW (11.5-14.5) % Plt Count (140-400) K/mcL MPV (9.4-12.4) fL Immature Gran % (0-4) % Seg Neutrophils % % Lymphocytes % % Monocytes % % Eosinophils % % Basophils % % Neutrophils # (1.6-8.9) K/mcL Lymphocytes # (0.6-4.6) K/mcL Monocytes # (0.0-1.3) K/mcL Eosinophils # (0.0-0.6) K/mcL Basophils # (0.0-0.2) K/mcL Nucleated RBCs/100 WBC (0) /100 WBC Smudge Cells (Not Present) Platelet Estimate (Normal) Large Platelets (Not Present) PT 11.2 (9.4-12.1) Seconds INR 1.0 APTT 27.9 (26.0-36.0) Seconds D-Dimer 336 (0-500) ng/mLFEU Sodium (136-145) mEq/L Potassium (3.5-5.1) mEq/L Chloride (98-107) mEq/L Carbon Dioxide (23-29) mEq/L BUN (8-23) mg/dL Creatinine (0.60-1.20) mg/dL Est GFR ( Amer) (> 60) Est GFR (Non-Af Amer) (> 60) BUN/Creatinine Ratio (6-26) Glucose (70-105) mg/dL Calculated Osmolality (280-300) Lactic Acid (0.5-2.2) mmol/L Calcium (8.6-10.3) mg/dL Total Bilirubin 0.5 (0.3-1.0) mg/dL Direct Bilirubin 0.1 (0.0-0.2) mg/dL Indirect Bilirubin 0.4 (0.0-1.2) mg/dL AST 12 L (13-39) Units/L ALT 10 (7-52) Units/L Alkaline Phosphatase 77 (34-104) Units/L Creatine Kinase (30-223) Units/L Troponin I (< 0.04) ng/mL B-Natriuretic Peptide 50 (Less than 100) pg/mL Serum Total Protein 6.3 L (6.4-8.9) g/dL Albumin 4.3 (3.5-5.7) g/dL Globulin 2.0 L (2.4-3.5) g/dL Albumin/Globulin Ratio 2.2 (1.1-2.2) Lipase 12 (11-82) Units/L Urine Color (Yellow) Urine Clarity (Clear) Urine pH (5.0-8.0) pH Units Ur Specific [place] (1.010-1.025) Urine Protein (Neg-Trace) mg/dL Urine Glucose (UA) (Normal) mg/dL Urine Ketones (Negative) mg/dL Urine Blood (Negative) Urine Nitrite (Negative) Urine Bilirubin (Negative) Urine Urobilinogen (Normal) mg/dL Ur Leukocyte Esterase (Negative) Urine Microscopic RBC (0-3) per hpf Urine Microscopic WBC (0-3) per hpf Ur Squamous Epith Cells (None-Few) per lpf Urine Bacteria (None-Few) per hpf Hyaline Casts (None-Few) per lpf Ur Culture Indicated? (NO) Specimen Rejected 02/18/19 02/18/19 02/18/19 Range/Units 19:26 20:10 20:36 WBC 16.0 H (4.3-11.1) K/mcL RBC 4.01 (3.82-4.97) M/mcL Hgb 11.6 (11.5-15.4) g/dL Hct 35.8 (35.3-44.9) % MCV 89.3 D (83.0-100.0) fL MCH 28.9 (28.0-33.3) pg MCHC 32.4 (31.6-35.5) g/dL RDW 14.8 H (11.5-14.5) % Plt Count 128 L (140-400) K/mcL MPV 11.2 (9.4-12.4) fL Immature Gran % 1.4 (0-4) % Seg Neutrophils % 34.1 % Lymphocytes % 60.7 % Monocytes % 3.1 % Eosinophils % 0.3 % Basophils % 0.4 % Neutrophils # 5.5 (1.6-8.9) K/mcL Lymphocytes # 9.7 H (0.6-4.6) K/mcL Monocytes # 0.5 (0.0-1.3) K/mcL Eosinophils # 0.1 (0.0-0.6) K/mcL Basophils # 0.1 (0.0-0.2) K/mcL Nucleated RBCs/100 WBC 0.3 H (0) /100 WBC Smudge Cells Present A (Not Present) Platelet Estimate Slight Decrease L (Normal) Large Platelets Present A (Not Present) PT (9.4-12.1) Seconds INR APTT (26.0-36.0) Seconds D-Dimer (0-500) ng/mLFEU Sodium 138 (136-145) mEq/L Potassium 4.3 (3.5-5.1) mEq/L Chloride 99 (98-107) mEq/L Carbon Dioxide 23 (23-29) mEq/L BUN 21 (8-23) mg/dL Creatinine 1.03 (0.60-1.20) mg/dL Est GFR ( Amer) > 60 (> 60) Est GFR (Non-Af Amer) 53 L (> 60) BUN/Creatinine Ratio 20 (6-26) Glucose 246 H (70-105) mg/dL Calculated Osmolality 297 (280-300) Lactic Acid (0.5-2.2) mmol/L Calcium 10.2 (8.6-10.3) mg/dL Total Bilirubin (0.3-1.0) mg/dL Direct Bilirubin (0.0-0.2) mg/dL Indirect Bilirubin (0.0-1.2) mg/dL AST (13-39) Units/L ALT (7-52) Units/L Alkaline Phosphatase (34-104) Units/L Creatine Kinase (30-223) Units/L Troponin I < 0.03 (< 0.04) ng/mL B-Natriuretic Peptide (Less than 100) pg/mL Serum Total Protein (6.4-8.9) g/dL Albumin (3.5-5.7) g/dL Globulin (2.4-3.5) g/dL Albumin/Globulin Ratio (1.1-2.2) Lipase (11-82) Units/L Urine Color (Yellow) Urine Clarity (Clear) Urine pH (5.0-8.0) pH Units Ur Specific [place] (1.010-1.025) Urine Protein (Neg-Trace) mg/dL Urine Glucose (UA) (Normal) mg/dL Urine Ketones (Negative) mg/dL Urine Blood (Negative) Urine Nitrite (Negative) Urine Bilirubin (Negative) Urine Urobilinogen (Normal) mg/dL Ur Leukocyte Esterase (Negative) Urine Microscopic RBC (0-3) per hpf Urine Microscopic WBC (0-3) per hpf Ur Squamous Epith Cells (None-Few) per lpf Urine Bacteria (None-Few) per hpf Hyaline Casts (None-Few) per lpf Ur Culture Indicated? (NO) Specimen Rejected MCV Delta 02/18/19 02/18/19 02/18/19 Range/Units 20:36 22:26 23:45 WBC (4.3-11.1) K/mcL RBC (3.82-4.97) M/mcL Hgb (11.5-15.4) g/dL Hct (35.3-44.9) % MCV (83.0-100.0) fL MCH (28.0-33.3) pg MCHC (31.6-35.5) g/dL RDW (11.5-14.5) % Plt Count (140-400) K/mcL MPV (9.4-12.4) fL Immature Gran % (0-4) % Seg Neutrophils % % Lymphocytes % % Monocytes % % Eosinophils % % Basophils % % Neutrophils # (1.6-8.9) K/mcL Lymphocytes # (0.6-4.6) K/mcL Monocytes # (0.0-1.3) K/mcL Eosinophils # (0.0-0.6) K/mcL Basophils # (0.0-0.2) K/mcL Nucleated RBCs/100 WBC (0) /100 WBC Smudge Cells (Not Present) Platelet Estimate (Normal) Large Platelets (Not Present) PT (9.4-12.1) Seconds INR APTT (26.0-36.0) Seconds D-Dimer (0-500) ng/mLFEU Sodium (136-145) mEq/L Potassium (3.5-5.1) mEq/L Chloride (98-107) mEq/L Carbon Dioxide (23-29) mEq/L BUN (8-23) mg/dL Creatinine (0.60-1.20) mg/dL Est GFR ( Amer) (> 60) Est GFR (Non-Af Amer) (> 60) BUN/Creatinine Ratio (6-26) Glucose (70-105) mg/dL Calculated Osmolality (280-300) Lactic Acid 0.8 (0.5-2.2) mmol/L Calcium (8.6-10.3) mg/dL Total Bilirubin (0.3-1.0) mg/dL Direct Bilirubin (0.0-0.2) mg/dL Indirect Bilirubin (0.0-1.2) mg/dL AST (13-39) Units/L ALT (7-52) Units/L Alkaline Phosphatase (34-104) Units/L Creatine Kinase 200 (30-223) Units/L Troponin I (< 0.04) ng/mL B-Natriuretic Peptide (Less than 100) pg/mL Serum Total Protein (6.4-8.9) g/dL Albumin (3.5-5.7) g/dL Globulin (2.4-3.5) g/dL Albumin/Globulin Ratio (1.1-2.2) Lipase (11-82) Units/L Urine Color Yellow (Yellow) Urine Clarity Cloudy A (Clear) Urine pH 7.5 (5.0-8.0) pH Units Ur Specific [place] > 1.030 H (1.010-1.025) Urine Protein Negative (Neg-Trace) mg/dL Urine Glucose (UA) Normal (Normal) mg/dL Urine Ketones 80 H (Negative) mg/dL Urine Blood Negative (Negative) Urine Nitrite Negative (Negative) Urine Bilirubin Negative (Negative) Urine Urobilinogen Normal (Normal) mg/dL Ur Leukocyte Esterase Negative (Negative) Urine Microscopic RBC 0-3 (0-3) per hpf Urine Microscopic WBC 3-5 H (0-3) per hpf Ur Squamous Epith Cells Many H (None-Few) per lpf Urine Bacteria Many H (None-Few) per hpf Hyaline Casts None Seen (None-Few) per lpf Ur Culture Indicated? YES A (NO) Specimen Rejected - Radiology Data Radiology results reviewed: Yes I reviewed the patient's radiology results. Chest X-Ray 02/18/19 19:26 IMPRESSION: Findings likely related to mild congestive heart failure and edema D/ / Mariela Barbosa MD / Mariela Barbosa MD Interpreting Provider: Mariela Barbosa MD Dissection 02/18/19 19:27 IMPRESSION: No thoracic or abdominal aortic aneurysm or dissection. Axillary, abdominal, and pelvic adenopathy. Findings overall are slightly increased. D/ / Mariela Barbosa MD / Mariela Barbosa MD Interpreting Provider: Mariela Barbosa MD - EKG Data EKG attestation: Yes I reviewed and interpreted this EKG. EKG results narrative: Patient had an EKG that was obtained and reviewed interpreted by me. Initial EKG was performed at 1915. EKG shows a normal sinus rhythm 85 bpm normal axis normal intervals, occasional PVC, no acute ST elevations. There are minimal ST depressions inferiorly., There is a nonspecific minimal ST change in lead V1 without significant R-wave. This was compared to EKG from 12/14/2018 at 0038 hours without significant change as there was PVCs noted then with a minimal ST changes in V1. Patient had a repeat EKG on 02/18/2019 at 1929 hrs. This EKG was reviewed interpreted by me. Normal axis, PVC, normal intervals, no acute ST elevation noted. Normal sinus at 96 bpm EKG #3 shows a normal sinus rhythm at 83 bpm normal RI interval, prolonged QRS duration 101, interventricular conduction delay, no acute ST elevations although there is a slight ST change in V1 which now is less than a quarter of one box. Previous ST depressions seen inferior leads are present but not quite as prominent and more consistent with her previous EKG that she had on 12/14/2018. Heart Score - Score History: Slightly Suspicious EKG: Normal Age: Greater than 65 Risk Factors: 1-2 risk factors Troponin: Less than normal limit HEART Score Total: 3 Critical Care Time Critical Care Time: Yes Total Critical Care Time: 60 Attestation: The high probability of a clinically significant, sudden or life threatening deterioration of the patient's condition required my full and direct attention, intervention and personal management.
[2019-02-18 19:52] LABS: Prothrombin Time 11.2 Seconds (9.4-12.1)
[2019-02-18 19:54] LABS: Activated Partial Thrombo Time 27.9 Seconds (26.0-36.0)
[2019-02-18] MEDS ORDERED: *HR* FentaNYL (PF) 100 MCG/2 ML VIAL IVP ONE ×2 (20:01→23:53)
[2019-02-18 20:05] LABS: Albumin 4.3 g/dL (3.5-5.7); Albumin/Globulin Ratio 2.2 (1.1-2.2); Bilirubin,Direct 0.1 mg/dL (0.0-0.2); Bilirubin,Indirect 0.4 mg/dL (0.0-1.2); Bilirubin,Total 0.5 mg/dL (0.3-1.0); Total Protein 6.3 g/dL (6.4-8.9)
[2019-02-18 20:08] LABS: BUN/Creatinine Ratio 20 (6-26); Blood Urea Nitrogen 21 mg/dL (8-23); Calcium 10.2 mg/dL (8.6-10.3); Carbon Dioxide 23 mEq/L (23-29); Chloride 99 mEq/L (98-107); Glucose 246 mg/dL (70-105); Osmolality,Calculated 297 (280-300); Potassium 4.3 mEq/L (3.5-5.1); Sodium 138 mEq/L (136-145); Troponin I < 0.03 ng/mL (< 0.04); eGFR For African Americans > 60 (> 60); eGFR For Non-African Americans 53 (> 60)
[2019-02-18] MEDS: Nitroglycerin 0.4 MG TAB.SUBL SL PRN (20:09)
[2019-02-18] MEDS ORDERED: *HR* LORazepam 2 MG/ML VIAL IVP ONE (20:24)
[2019-02-18 21:06] LABS: Basophils # 0.1 K/mcL (0.0-0.2); Basophils % 0.4 %; Eosinophils % 0.3 %; Hematocrit 35.8 % (35.3-44.9); Hemoglobin 11.6 g/dL (11.5-15.4); Immature Granulocytes % 1.4 % (0-4); Lymphocytes # 9.7 K/mcL (0.6-4.6); Lymphocytes % 60.7 %; Mean Corpuscular HGB Conc 32.4 g/dL (31.6-35.5); Mean Corpuscular Hemoglobin 28.9 pg (28.0-33.3); Mean Corpuscular Volume 89.3 fL (83.0-100.0); Mean Platelet Volume 11.2 fL (9.4-12.4); Monocytes # 0.5 K/mcL (0.0-1.3); Monocytes % 3.1 %; Neutrophils # 5.5 K/mcL (1.6-8.9); Nucleated Red Blood Cells 0.3 /100 WBC (0); Platelet Count 128 K/mcL (140-400); Red Blood Count 4.01 M/mcL (3.82-4.97); Red Cell Distribution Width 14.8 % (11.5-14.5); Segmented Neutrophils % 34.1 %
[2019-02-18 21:08] LABS: Eosinophils # 0.1 K/mcL (0.0-0.6)
[2019-02-18 21:30] LABS: Large Platelets Present (Not Present)
[2019-02-18 21:31] LABS: Platelet Estimate Slight Decrease (Normal); Smudge Cells Present (Not Present)
[2019-02-18] MEDS ORDERED: 0.9 % Sodium Chloride 1,000 ML IVC ONE (21:41)
[2019-02-18] MEDS ORDERED: Ketorolac 15 MG/ML VIAL IVP ONE (23:53)
[2019-02-18 23:56] LABS: Bilirubin,Urine Negative (Negative); Blood,Urine Negative (Negative); Clarity,Urine Cloudy (Clear); Color,Urine Yellow (Yellow); Glucose,Urine (UA) Normal (Normal); Ketones,Urine 80 mg/dL (Negative); Leukocyte Esterase,Urine Negative (Negative); Nitrite,Urine Negative (Negative); PH,Urine 7.5 pH Units (5.0-8.0); Protein,Urine Negative (Neg-Trace); Specific Gravity,Urine > 1.030 (1.010-1.025); Urobilinogen,Urine Normal (Normal)
[2019-02-18 23:57] LABS: Bacteria,Urine Many per hpf (None-Few); Hyaline Casts,Urine None Seen per lpf (None-Few); RBC,Urine 0-3 per hpf (0-3); Squamous Epithelial Cell,Urine Many per lpf (None-Few)
[2019-02-18] MEDS ORDERED: Aspirin 81 MG TAB.CHEW PO STA (23:58)
[2019-02-19] MEDS ORDERED: Naloxone 0.4 MG/ML INJ IVP PRN (01:11)
[2019-02-19] MEDS ORDERED: Dextrose Gel 15 GM/37.5 ML TUBE PO PRN ×2 (01:15)
[2019-02-19] MEDS ORDERED: D5% in Water 1,000 ML IVC PRN (01:15)
[2019-02-19] MEDS ORDERED: *HR* Dextrose 50 % in Water (Syg) 50 ML SYRINGE IVP PRN (01:15)
[2019-02-19] MEDS ORDERED: *HR* OxyCODONE/APAP 5/325 TABLET PO PRN (01:44)
[2019-02-19] MEDS ORDERED: Ondansetron 4 MG/2 ML VIAL IVP ONE (01:50)
--- NOTE | 2019-02-19 01:54 | Internal Med History&Physical ---
Date of Encounter: 02/19/19 Time of Encounter: 00:30 Internal Medicine - H&P: HPI Chief complaint: Chest Pain Admitted From: Home Plans for Post Hospital Care: Home History of present illness: Ms. Vargas is a 68 year old female with past medical history significant for CLL currently not receiving treatment, hypertension, COPD with PRN home oxygen, diabetes, renal disease, gerd, chronic back pain, and depression who presents from [facility] for complaints of chest pain. ER reported on arrival she complained of substernal-left sided chest pain radiating through to her back. Patient however reported to me only left sided non radiating chest pressure without radiation for past two days getting progressively worse. States pain was 10/10 when at its worst and associated with nausea, vomiting, shortness of breath, and diaphoresis. Denies any alleviating or exacerbating factors until receiving medications in ER including aspirin, fentanyl, toradol, morphine, ativan, nitro, and zofran. States the nitro did improve her chest pain and currently she is pain free. ER obtained a chest xray which showed findings likely related to mid congestive heart failure and edema. ER also ordered CT dissection study due to initial complaints which showed no thoracic or abdominal aortic aneurysm or dissection with axillary, abdominal, and pelvic adenopathy that is overall slightly increased. ER reported EKG as sinus rhythm with minimal ST depressions inferiorly consistent with EKG from 12/14/[address] change in V1. ER discussed EKG changes with waterfront director cardiology Dr Celestin who advised to admit for chest pain rule out. ER discussed presentation with patient daughter who advises patient recently admitted to [facility] and has been receiving less pain medications than usual and when her ch ronic back pain gets out of control she sometimes also has chest and abdominal pain accompanied by nausea and vomiting in addition to her chronic back pain. Patient currently reports she is completely pain free. Denies any headache, chest pain, shortness of breath, cough, abdominal pain, bowel or bladder changes. Reports checking blood sugars regularly and they have been averaging around 200. Follows regularly with PCP, Oncology, Nephrology, and Pain Management. Past Med Surg Social Fam HX - Past Medical History Medical history: cancer, COPD, diabetes, GERD, hypertension, renal disease, other Additional medical history: CLL, Chronic Back Pain Psychiatric history: depression - Past Surgical History Surgical History: appendectomy, cholecystectomy, knee replacement, THERESE/BSO Additional surgical history: Left total knee replacement - Social History Smoking Status: Never smoker Smokeless Tobacco Status: No Alcohol use: none Drug use: none - Family History Mother Family Member Ethnicity: Non- Living Status: Hx Family Cardiac Disorders: No Hx Family Respiratory Disorders: No Hx Family Cancer: No Hx Family GI Disorders: No Hx Family Endocrine Disorder: Yes (DM) Hx Family Neuromuscular Disorders: No Hx Family Neurologic Disorders: No Hx Family HEENT Disorders: No Hx Family Autoimmune Disorders: No Father Adopted: No Family Member Ethnicity: Non- Living Status: Hx Family Cardiac Disorders: Yes ([place]) Hx Family Respiratory Disorders: No Hx Family Cancer: No Hx Family GI Disorders: No Hx Family Endocrine Disorder: No Hx Family Neuromuscular Disorders: No Hx Family Neurologic Disorders: No Hx Family HEENT Disorders: No Hx Family Autoimmune Disorders: No Internal Medicine - H&P: Meds Primidone [Mysoline] 50 mg PO HS 02/28/16 [History] Ascorbic Acid [Vitamin C] 500 mg PO DAILY 03/06/16 [History] Cyanocobalamin (Vitamin B-12) [Vitamin B-12] 500 mcg PO DAILY 05/06/17 [History] Linagliptin [Tradjenta] 5 mg PO DAILY 05/06/17 [History] Atorvastatin [Lipitor] 40 mg PO HS 12/06/17 [History] Furosemide [Lasix] 20 mg PO DAILY PRN 01/16/18 [History] Loperamide [Imodium] 2 mg PO BID 06/17/18 [History] Metoclopramide [Reglan] 10 mg PO TID 06/17/18 [History] Doxepin HCl 20 mg PO HS 12/15/18 [History] Insulin LISPRO [Humalog Kwikpen U-100] 0 unit SQ QIDAC 12/15/18 [History] Aspirin 81 mg PO DAILY tab.chew 12/18/18 [Rx] Docusate [Colace] 100 mg PO DAILY capsule 12/18/18 [Rx] Ferrous Sulfate 325 mg PO DAILY tablet 12/18/18 [Rx] Oxycodone HCl/Acetaminophen [Percocet 5-325 mg Tablet] 1 each PO Q6HR PRN 7 Days #30 tablet 12/18/18 [Rx] Pregabalin [Lyrica] 100 mg PO TID 30 Days #90 capsule 12/18/18 [Rx] Sucralfate [Carafate] 1 gm PO QIDAC udc 12/18/18 [Rx] Metoprolol [Lopressor] 25 mg PO DAILY 02/18/19 [History] Omeprazole [PriLOSEC] 40 mg PO DAILY 02/18/19 [History] Pioglitazone [Actos] 15 mg PO DAILY 02/18/19 [History] Allergy/AdvReac Type Severity Reaction Status Date / Time metformin Allergy Nausea Verified 12/14/18 00:45 Sulfa (Sulfonamide Allergy Nausea Verified 12/14/18 00:45 Antibiotics) sulfamethoxazole Allergy Nausea Verified 12/14/18 00:45 [From Bactrim] trimethoprim [From Bactrim] Allergy Nausea Verified 12/14/18 00:45 All Systems PM: A 10-system review of systems was performed and is negative for pertinent findings except as documented above in the HPI. - Constitutional Vitals: Temp Pulse Resp BP Pulse Ox 98.3 F 86 16 166/73 94 02/19/19 00:46 02/19/19 00:46 02/19/19 00:46 02/19/19 00:46 02/19/19 00:46 Exam: General: Alert and oriented. Calm in no distress. Skin:Normal color, no rash, no lesions. HEENT:Pupils equal, round and reactive. Cardiovascular:Heart sounds distant, no rubs, murmurs or gallops. No JVD. Pulse regular. Lungs:Breath sounds decreased, no wheezes or crackles. Abdomen:Soft, non-tender, no rigidity. Extremities:No deformity, tenderness, joint swelling or clubbing. Non pitting edema noted to bilateral lower extremities. Neurological:Normal cognition and motor skills. Pulses:Carotid and radial pulses normal +2. Rest of the physical exam is non contributory. Internal Med - H&P Results - Labs CBC & Chem 7: 02/18/19 20:36 02/18/19 19:26 Labs: Short CBC 02/18/19 Range/Units 20:36 WBC 16.0 H (4.3-11.1) K/mcL Hgb 11.6 (11.5-15.4) g/dL Hct 35.8 (35.3-44.9) % Plt Count 128 L (140-400) K/mcL Neutrophils # 5.5 (1.6-8.9) K/mcL BMP 02/18/19 19:26 Sodium 138 Potassium 4.3 Chloride 99 Carbon Dioxide 23 BUN 21 Creatinine 1.03 Glucose 246 H Calcium 10.2 Cardiac Enzymes 02/18/19 Range/Units 19:26 Troponin I < 0.03 (< 0.04) ng/mL Liver Function 02/18/19 Range/Units 19:26 Total Bilirubin 0.5 (0.3-1.0) mg/dL Direct Bilirubin 0.1 (0.0-0.2) mg/dL AST 12 L (13-39) Units/L ALT 10 (7-52) Units/L Alkaline Phosphatase 77 (34-104) Units/L Albumin 4.3 (3.5-5.7) g/dL Urine 02/18/19 Range/Units 23:45 Urine Color Yellow (Yellow) Urine Clarity Cloudy A (Clear) Urine pH 7.5 (5.0-8.0) pH Units Ur Specific [place] > 1.030 H (1.010-1.025) Urine Protein Negative (Neg-Trace) mg/dL Urine Glucose (UA) Normal (Normal) mg/dL - Impressions ITS Impressions Chest X-Ray 02/18/19 19:26 IMPRESSION: Findings likely related to mild congestive heart failure and edema D/ / Mariela Barbosa MD / Mariela Barbosa MD Interpreting Provider: Mariela Barbosa MD Dissection 02/18/19 19:27 IMPRESSION: No thoracic or abdominal aortic aneurysm or dissection. Axillary, abdominal, and pelvic adenopathy. Findings overall are slightly increased. D/ / Mariela Barbosa MD / Mariela Barbosa MD Interpreting Provider: Mariela Barbosa MD - Assessment and Plan (1) Chest pain Current Visit: Yes Status: Acute Assessment and plan: ER reported on arrival she complained of substernal-left sided chest pain radiating through to her back. Patient however reported to me only left sided non radiating chest pressure without radiation for past two days getting progressively worse. ER ordered CT dissection study due to initial complaints which showed no thoracic or abdominal aortic aneurysm or dissection with axillary, abdominal, and pelvic adenopathy that is overall slightly increased. Initial troponin in ER negative, serial troponins ordered. Received several medications in ER including aspirin, fentanyl, toradol, morphine, ativan, nitro, and zofran. States the nitro did improve her chest pain and currently she is pain free. Continuous cardiac monitoring. Echocardiogram ordered. Order pharmacologic stress test in a.m. as long as renal function remains stable. Patient daughter informed ER provider patient recently been receiving less pain medications than usual and when her chronic back pain gets out of control she sometimes also has chest and abdominal pain accompanied by nausea and vomiting. Unclear if presentation is cardiac or related to pain medication but given risk factors will rule out chest pain. Qualifiers: Chest pain type: unspecified Qualified Code(s): R07.9 - Chest pain, unspecified (2) Abnormal CT scan Current Visit: Yes Status: Acute Assessment and plan: ER ordered CT dissection study due to initial complaints which showed no thoracic or abdominal aortic aneurysm or dissection with axillary, abdominal, and pelvic adenopathy that is overall slightly increased. Continue outpatient oncology follow-up. (3) Abnormal urinalysis Current Visit: Yes Status: Acute Assessment and plan: UA obtained in ER was abnormal. Patient denies any urinary changes or complaints. Urine culture pending. (4) Thrombocytopenia Current Visit: Yes Status: Chronic Assessment and plan: History of low platelet counts, currently 128 down from 143 in January 2019. No signs of bleeding. Repeat labs ordered. (5) Chronic kidney disease Current Visit: Yes Status: Chronic Assessment and plan: Renal function currently stable with GFR of 53 and normal BUN and creatinine. Received IV contrast and Toradol while in ER. Repeat labs ordered. Consider pharmacologic stress test if renal function remains stable or further indicated. Qualifiers: Chronic kidney disease stage: unspecified stage Qualified Code(s): N18.9 - Chronic kidney disease, unspecified (6) Increased white blood cell count Current Visit: Yes Status: Chronic Assessment and plan: Previous labs from December and January 2019 show increased white blood cell count. No signs of infection. Blood and urine cultures pending. Repeat labs ordered. Qualifiers: Leukocytosis type: unspecified Qualified Code(s): D72.829 - Elevated white blood cell count, unspecified (7) Diabetes mellitus Current Visit: Yes Status: Chronic Assessment and plan: Hold home diabetic medications. Sliding scale insulin ordered. Accu-Chek's ordered. Qualifiers: Diabetes mellitus type: type 2 Qualified Code(s): E11.9 - Type 2 diabetes mellitus without complications (8) CLL (chronic lymphocytic leukemia) Current Visit: Yes Status: Chronic Assessment and plan: Continue outpatient oncology follow-up. (9) Chronic back pain Current Visit: Yes Status: Chronic Assessment and plan: Continue home medications once verified. Qualifiers: Back pain location: back pain in unspecified location Qualified Code(s): M54.9 - Dorsalgia, unspecified; G89.29 - Other chronic pain - Time Spent With Patient Total time spent is greater than 50% in coordination of care (as documented) at patient's floor/unit and/or counseling patient:
[2019-02-19] MEDS: Nitroglycerin 0.4 MG TAB.SUBL SL PRN ×2 (02:35→02:49)
[2019-02-19] MEDS ORDERED: Morphine Sulfate 2 MG/ML SYRINGE IVP ONE (02:39)
[2019-02-19] MEDS ORDERED: Nitroglycerin 1 INCH/GM PACKET TP ONE (03:10)
[2019-02-19] MEDS ORDERED: *HR* Heparin 5,000 UNIT/ML VIAL IVP ONE (03:16)
[2019-02-19] MEDS ORDERED: *HR* Heparin 5,000 UNIT/ML VIAL IVP PRN ×2 (03:16)
[2019-02-19] MEDS: Heparin 25,000 UNIT/250 ML D5W 25,000 UNIT/250 ML IV.SOLN IVC SCH (03:44)
[2019-02-19 04:49] LABS: Hematocrit 34.2 % (35.3-44.9); Mean Corpuscular HGB Conc 32.2 g/dL (31.6-35.5); Mean Corpuscular Hemoglobin 29.8 pg (28.0-33.3); Mean Corpuscular Volume 92.7 fL (83.0-100.0); Mean Platelet Volume 11.2 fL (9.4-12.4); Platelet Count 121 K/mcL (140-400); Red Blood Count 3.69 M/mcL (3.82-4.97); Red Cell Distribution Width 15.4 % (11.5-14.5); White Blood Count 13.9 K/mcL (4.3-11.1)
[2019-02-19 04:56] LABS: Heparin anti-factor XA UFH 0.83 IU/mL (0.30-0.70)
[2019-02-19 04:57] LABS: Prothrombin Time 11.9 Seconds (9.4-12.1)
[2019-02-19] MEDS: Insulin LISPRO 300 UNITS/3 ML VIAL SQ SCH ×3 (06:18→20:44)
[2019-02-19] MEDS ORDERED: Furosemide 20 MG TABLET PO PRN (08:06)
[2019-02-19] MEDS: Cyanocobalamin (B-12) 1,000 MCG TABLET PO SCH (08:53)
[2019-02-19] MEDS: Aspirin 81 MG TAB.CHEW PO SCH (08:54)
[2019-02-19] MEDS: Ascorbic Acid 500 MG TABLET PO SCH (08:54)
[2019-02-19] MEDS: Pregabalin 50 MG CAPSULE PO SCH ×3 (08:54→20:50)
[2019-02-19] MEDS: *HR* OxyCODONE/APAP 5/325 TABLET PO SCH ×3 (09:56→23:50)
[2019-02-19 11:13] LABS: Basophils # 0.1 K/mcL (0.0-0.2); Basophils % 0.3 %; Eosinophils % 0.2 %; Hematocrit 37.2 % (35.3-44.9); Hemoglobin 11.8 g/dL (11.5-15.4); Immature Granulocytes % 1.1 % (0-4); Lymphocytes % 64.2 %; Mean Corpuscular HGB Conc 31.7 g/dL (31.6-35.5); Mean Corpuscular Hemoglobin 28.4 pg (28.0-33.3); Mean Corpuscular Volume 89.4 fL (83.0-100.0); Mean Platelet Volume 11.1 fL (9.4-12.4); Monocytes # 0.6 K/mcL (0.0-1.3); Monocytes % 3.1 %; Neutrophils # 6.3 K/mcL (1.6-8.9); Nucleated Red Blood Cells 0.1 /100 WBC (0); Platelet Count 145 K/mcL (140-400); Red Blood Count 4.16 M/mcL (3.82-4.97); Red Cell Distribution Width 15.2 % (11.5-14.5); Segmented Neutrophils % 31.1 %; White Blood Count 20.2 K/mcL (4.3-11.1)
[2019-02-19 11:17] LABS: Platelet Estimate Normal (Normal); Reactive Lymphocytes Present (Not Present)
[2019-02-19 11:27] LABS: Alanine Aminotransferase 10 Units/L (7-52); Albumin 4.4 g/dL (3.5-5.7); Albumin/Globulin Ratio 2.6 (1.1-2.2); Alkaline Phosphatase 79 Units/L (34-104); Aspartate Amino Transferase 17 Units/L (13-39); BUN/Creatinine Ratio 19 (6-26); Bilirubin,Total 0.5 mg/dL (0.3-1.0); Blood Urea Nitrogen 19 mg/dL (8-23); Calcium 9.8 mg/dL (8.6-10.3); Carbon Dioxide 24 mEq/L (23-29); Chloride 101 mEq/L (98-107); Globulin 1.7 g/dL (2.4-3.5); Glucose 264 mg/dL (70-105); Osmolality,Calculated 297 (280-300); Potassium 3.9 mEq/L (3.5-5.1); Sodium 138 mEq/L (136-145); Total Protein 6.1 g/dL (6.4-8.9); Troponin I < 0.03 ng/mL (< 0.04); eGFR For African Americans > 60 (> 60); eGFR For Non-African Americans 57 (> 60)
[2019-02-19] MEDS ORDERED: *HR* OxyCODONE/APAP 5/325 TABLET PO SCH (12:00)
--- NOTE | 2019-02-19 12:12 | Cardiology Consult Note ---
Date of Encounter: 02/19/19 Time of Encounter: 12:10 Assessment and Plan (1) Chest pain Current Visit: No Status: Resolved EKG changes suggestive of ischemia anterolateral and setting of multiple cardiac risk factors including diabetes and a vague historian. We will pursue LHC currently on medications we will continue to optimize. Currently patient is chest pain-free Qualifiers: Chest pain type: chest pain due to myocardial ischemia Ischemic chest pain type: unstable angina pectoris Qualified Code(s): I20.0 - Unstable angina Discussion w patient/family: The assessment and plan as outlined above was discussed with the patient and/or family members who expressed understanding and agreement. All questions were answered. Thank you for involving us in the care of your patient. Please call with any questions. History of Present Illness Consult date: 02/19/19 Consult reason: CP Chief complaint: Chest Pain History of present illness: Ms. Vargas is a 68 year old female with history of CLL not receiving treatment, multiple aches and pains on chronic analgesics, multiple cardiac risk factors including diabetes, hypertension who presents with borderline ST changes suggestive of ischemia on heparin IV ACS protocol negative cardiac markers and no recent ischemic workup. Patient is a vague historian requests pain m edications for intrascapular type pain which may or may not be ischemic. We will continue to optimize medical management at this time and plan for possible LHC to rule out ischemia due to borderline ST changes, vague historian, chronic complainer of chest pain and interscapular pain. Past Med Surg Social Fam HX - Past Medical History Medical history: cancer, COPD, diabetes, GERD, hypertension, renal disease, other Additional medical history: CLL, Chronic Back Pain Psychiatric history: depression - Past Surgical History Surgical History: appendectomy, cholecystectomy, knee replacement, THERESE/BSO Additional surgical history: Left total knee replacement - Social History Smoking Status: Never smoker Smokeless Tobacco Status: No Alcohol use: none Drug use: none - Family History Mother Family Member Ethnicity: Non- Living Status: Hx Family Cardiac Disorders: No Hx Family Respiratory Disorders: No Hx Family Cancer: No Hx Family GI Disorders: No Hx Family Endocrine Disorder: Yes (DM) Hx Family Neuromuscular Disorders: No Hx Family Neurologic Disorders: No Hx Family HEENT Disorders: No Hx Family Autoimmune Disorders: No Father Adopted: No Family Member Ethnicity: Non- Living Status: Hx Family Cardiac Disorders: Yes ([place]) Hx Family Respiratory Disorders: No Hx Family Cancer: No Hx Family GI Disorders: No Hx Family Endocrine Disorder: No Hx Family Neuromuscular Disorders: No Hx Family Neurologic Disorders: No Hx Family HEENT Disorders: No Hx Family Autoimmune Disorders: No Medications and Allergies Primidone [Mysoline] 50 mg PO HS 02/28/16 [History] Ascorbic Acid [Vitamin C] 500 mg PO DAILY 03/06/16 [History] Cyanocobalamin (Vitamin B-12) [Vitamin B-12] 500 mcg PO DAILY 05/06/17 [History] Linagliptin [Tradjenta] 5 mg PO DAILY 05/06/17 [History] Atorvastatin [Lipitor] 40 mg PO HS 12/06/17 [History] Furosemide [Lasix] 20 mg PO DAILY PRN 01/16/18 [History] Loperamide [Imodium] 2 mg PO BID 06/17/18 [History] Metoclopramide [Reglan] 10 mg PO TID 06/17/18 [History] Doxepin HCl 20 mg PO HS 12/15/18 [History] Insulin LISPRO [Humalog Kwikpen U-100] 0 unit SQ QIDAC 12/15/18 [History] Aspirin 81 mg PO DAILY tab.chew 12/18/18 [Rx] Docusate [Colace] 100 mg PO DAILY capsule 12/18/18 [Rx] Ferrous Sulfate 325 mg PO DAILY tablet 12/18/18 [Rx] Oxycodone HCl/Acetaminophen [Percocet 5-325 mg Tablet] 1 each PO Q6HR PRN 7 Days #30 tablet 12/18/18 [Rx] Pregabalin [Lyrica] 100 mg PO TID 30 Days #90 capsule 12/18/18 [Rx] Sucralfate [Carafate] 1 gm PO QIDAC udc 12/18/18 [Rx] Metoprolol [Lopressor] 25 mg PO DAILY 02/18/19 [History] Omeprazole [PriLOSEC] 40 mg PO DAILY 02/18/19 [History] Pioglitazone [Actos] 15 mg PO DAILY 02/18/19 [History] Allergy/AdvReac Type Severity Reaction Status Date / Time metformin Allergy Nausea Verified 12/14/18 00:45 Sulfa (Sulfonamide Allergy Nausea Verified 12/14/18 00:45 Antibiotics) sulfamethoxazole Allergy Nausea Verified 12/14/18 00:45 [From Bactrim] trimethoprim [From Bactrim] Allergy Nausea Verified 12/14/18 00:45 All Systems Review: The remainder of the systems were reviewed and are negative Physical Examination Vital Signs, Last 4 Hours Temp Pulse Resp BP Pulse Ox 02/19/19 11:23 98.6 F 70 19 169/78 98 General: Conversant, No Apparent Distress HEENT: Atraumatic, Normocephaly, Mucus Membranes Moist Neck: No JVD, Normal carotid pulses Cardiac: Reg Rate and Rhythm, Normal S1 and S2, No Murmur Lungs: Normal Breath Sounds, No Wheeze, Rales, Rhonchi Neuro: Alert and responsive, No focal deficits noted Abdomen: Soft, Non-Tender Skin: No rashes noted on visualized skin Musculoskeletal: No Chest Wall Tenderness Extremities: No Clubbing, No Cyanosis, No Edema, Normal Pulses Results 02/19/19 10:57 02/19/19 10:57 Lab Results 02/18/19 02/18/19 02/18/19 19:26 19:26 19:26 WBC Hgb Hct Plt Count INR 1.0 APTT 27.9 D-Dimer 336 Sodium Potassium Chloride Carbon Dioxide BUN Creatinine Glucose Calcium Total Bilirubin 0.5 AST 12 L ALT 10 Alkaline Phosphatase 77 Troponin I B-Natriuretic Peptide 50 Lipase 12 02/18/19 02/18/19 02/19/19 19:26 20:36 01:57 WBC 16.0 H Hgb 11.6 Hct 35.8 Plt Count 128 L INR APTT D-Dimer Sodium 138 Potassium 4.3 Chloride 99 Carbon Dioxide 23 BUN 21 Creatinine 1.03 Glucose 246 H Calcium 10.2 Total Bilirubin AST ALT Alkaline Phosphatase Troponin I < 0.03 < 0.03 B-Natriuretic Peptide Lipase 02/19/19 02/19/19 02/19/19 04:37 04:37 10:57 WBC 13.9 H 20.2 H Hgb 11.0 L 11.8 Hct 34.2 L 37.2 Plt Count 121 L 145 INR 1.0 APTT D-Dimer Sodium Potassium Chloride Carbon Dioxide BUN Creatinine Glucose Calcium Total Bilirubin AST ALT Alkaline Phosphatase Troponin I B-Natriuretic Peptide Lipase 02/19/19 10:57 WBC Hgb Hct Plt Count INR APTT D-Dimer Sodium 138 Potassium 3.9 Chloride 101 Carbon Dioxide 24 BUN 19 Creatinine 0.98 Glucose 264 H Calcium 9.8 Total Bilirubin 0.5 AST 17 ALT 10 Alkaline Phosphatase 79 Troponin I < 0.03 B-Natriuretic Peptide Lipase Consult Discharge Plan - Plan Referrals: NONE,PCP [Primary Care Provider] -
[2019-02-19] MEDS ORDERED: Morphine Sulfate 2 MG/ML SYRINGE IVP PRN (13:00)
--- NOTE | 2019-02-19 13:03 | Event Note ---
Date of Encounter: 02/19/19 Time of Encounter: 09:40 H&P noted, patient was seen this AM. she is 68 o female with chronic back pain, IDDM, CLL not on active chemotherapy, CKD stage III was admitted to the hospital due to back pain and chest pain. Chest pain: - Troponin - x 3, Echo with preserved EF. EKG with possible changes. Cardiology is consulted, keep Heparin gtt, plans for LHC tomorrow. Continue ASA and plavix. Chronic back pain: 2 recent MRI for the thoracic spine last one 01/31 with negative acute findings, MRI of the lumbar spine with OA changes. was evaluated by pain management service on 10/31 with Left L5 Dorsal Ramus, S1, S2 and S3 Lateral Branch Radiofrequency Neurolysis . Will manage her pain with lidocaine patch, oxycodone 10mg [id number], diluadid for breakthrough pain [id number]. Continue Lyrica. consult for pain service. Gastroparesis: Continue with antiemetic, reglan. IDDM: continue with ACCU checks TIDac and LSSI CLL: had chronic leukocytosis. DVT ppx: heparin gtt
[2019-02-19] MEDS: Primidone 50 MG TABLET PO SCH (20:50)
[2019-02-19] MEDS: Insulin DETEMIR 100 UNIT/ML X5UNITS SQ SCH (20:51)
[2019-02-19] MEDS ORDERED: Aspirin 81 MG TAB.CHEW PO ONE (23:48)
[2019-02-20 01:23] LABS: Hematocrit 34.4 % (35.3-44.9); Hemoglobin 10.9 g/dL (11.5-15.4); Mean Corpuscular HGB Conc 31.7 g/dL (31.6-35.5); Mean Corpuscular Hemoglobin 28.8 pg (28.0-33.3); Mean Platelet Volume 11.4 fL (9.4-12.4); Platelet Count 125 K/mcL (140-400); Red Blood Count 3.78 M/mcL (3.82-4.97); Red Cell Distribution Width 15.2 % (11.5-14.5); White Blood Count 10.4 K/mcL (4.3-11.1)
[2019-02-20 01:42] LABS: BUN/Creatinine Ratio 15 (6-26); Blood Urea Nitrogen 13 mg/dL (8-23); Calcium 8.6 mg/dL (8.6-10.3); Carbon Dioxide 26 mEq/L (23-29); Chloride 100 mEq/L (98-107); Glucose 243 mg/dL (70-105); Osmolality,Calculated 292 (280-300); Potassium 3.9 mEq/L (3.5-5.1); Sodium 137 mEq/L (136-145); eGFR For African Americans > 60 (> 60); eGFR For Non-African Americans > 60 (> 60)
[2019-02-20] MEDS: *HR* OxyCODONE/APAP 5/325 TABLET PO SCH ×4 (05:37→18:26)
[2019-02-20] MEDS: Ascorbic Acid 500 MG TABLET PO SCH (08:13)
[2019-02-20] MEDS: Aspirin 81 MG TAB.CHEW PO SCH (08:13)
[2019-02-20] MEDS: Cyanocobalamin (B-12) 1,000 MCG TABLET PO SCH (08:13)
[2019-02-20] MEDS: Pregabalin 50 MG CAPSULE PO SCH ×2 (08:13→21:31)
[2019-02-20] MEDS: Insulin LISPRO 300 UNITS/3 ML VIAL SQ SCH ×3 (08:17→16:21)
--- NOTE | 2019-02-20 10:08 | Cardiology Progress Note ---
Date of Encounter: 02/20/19 Time of Encounter: 09:15 Assessment and Plan (1) Chest pain Current Visit: Yes Status: Acute Per Cardiology: Troponins negative 3. Currently chest pain-free. Echo with EF 60-65%, no significant valvular dysfunction, NSWMA. Discussed and reviewed with Dr. Celestin, recommendations for left heart catheterization tomorrow. On aspirin, statin and heparin drip. We will add beta hai. Patient verbalized understanding and agreed with plan. All questions answered. Qualifiers: Chest pain type: unspecified Qualified Code(s): R07.9 - Chest pain, unspecified (2) HTN (hypertension) Current Visit: No Status: Chronic Per Cardiology: Systolic blood pressures in the 150s to 170s, adding beta hai, continue to monitor. Qualifiers: Hypertension type: essential hypertension Qualified Code(s): I10 - Essential (primary) hypertension Discussion w patient/family: The assessment and plan as outlined above was discussed with the patient and/or family members who expressed understanding and agreement. All questions were answered. Thank you for involving us in the care of your patient. Please call with any questions. Subjective Principal diagnosis: CP Interval history: Denies any concerns or complaints currently. Denies any recurrent chest pain, shortness of breath or palpitations. Objective Vital Signs, Last 4 Hours Temp Pulse Resp BP Pulse Ox 02/20/19 07:43 98.5 F 95 20 170/77 97 General: Conversant, No Apparent Distress HEENT: Atraumatic, Normocephaly, Mucus Membranes Moist Neck: No JVD, Normal carotid pulses Cardiac: Reg Rate and Rhythm, Normal S1 and S2, No Murmur Lungs: Normal Breath Sounds, No Wheeze, Rales, Rhonchi Neuro: Alert and responsive, No focal deficits noted Abdomen: Soft, Non-Tender Skin: No rashes noted on visualized skin Musculoskeletal: No Chest Wall Tenderness Extremities: No Clubbing, No Cyanosis, No Edema, Normal Pulses Results 02/20/19 00:51 02/20/19 00:51 Lab Results Laboratory Tests 02/18/19 02/18/19 02/18/19 19:26 19:26 20:36 Hgb 11.6 Hct 35.8 INR D-Dimer 336 Creatinine Est GFR (Non-Af Amer) Troponin I < 0.03 02/19/19 02/19/19 02/19/19 01:57 04:37 10:57 Hgb Hct INR 1.0 D-Dimer Creatinine Est GFR (Non-Af Amer) Troponin I < 0.03 < 0.03 02/20/19 02/20/19 00:51 00:51 Hgb 10.9 L Hct 34.4 L INR D-Dimer Creatinine 0.84 Est GFR (Non-Af Amer) > 60 Troponin I ITS Impressions Chest X-Ray 02/18/19 19:26 IMPRESSION: Findings likely related to mild congestive heart failure and edema D/ / Mariela Barbosa MD / Mariela Barbosa MD Interpreting Provider: Mariela Barbosa MD Dissection 02/18/19 19:27 IMPRESSION: No thoracic or abdominal aortic aneurysm or dissection. Axillary, abdominal, and pelvic adenopathy. Findings overall are slightly increased. D/ / Mariela Barbosa MD / Mariela Barbosa MD Interpreting Provider: Mariela Barbosa MD Echocardiogram 02/19/19 01:14 Impressions: LVEF 60-65%. Normal LV chamber size and function. Mild concentric left ventricular hypertrophy. Mild left ventricular diastolic dysfunction. Normal right ventricular structure and function. No significant valvular dysfunction. Mild pulmonary hypertension. Estimated RVSP is 39 mmHg. Left Ventricular Wall Motion: Rest Echo Findings All wall segments showed normal motion. Findings: Study Quality * Technically adequate exam. ECG Findings * Normal sinus rhythm. Left Ventricle * LVEF 60-65%. * Normal LV chamber size and function. * Mild concentric left ventricular hypertrophy. * Mild left ventricular diastolic dysfunction. Right Ventricle * Normal right ventricular structure and function. Left Atrium * Mildly dilated left atrium. Right Atrium * Mildly dilated right atrium. Interatrial Septum * Interatrial septum not well evaluated. Aortic Valve * Trileaflet aortic valve. * No aortic regurgitation. * No aortic stenosis. Mitral Valve * Normal mitral valve structure and function. * No mitral stenosis. * Trace mitral regurgitation. Tricuspid Valve * Normal tricuspid valve structure and function. * Trace tricuspid regurgitation. * Mild pulmonary hypertension. * Estimated RVSP is 39 mmHg. * Estimated RA pressure is 3 mmHg. Pulmonic Valve * Pulmonic valve is not well visualized. * No pulmonic regurgitation. Aorta * Normally sized aortic root. Pericardium * The pericardium appears normal. IVC * Normal IVC dimensions and inspiratory collapse. Pulmonary Artery * Normal visualized portions of the main pulmonary artery. Active Medications Ascorbic Acid (Vitamin C) 500 mg PO DAILY [facility] Stop: 08/21/19 09:01 Last Admin: 02/20/19 08:13 Dose: 500 mg Documented by: Aspirin (Aspirin) 81 mg PO DAILY [facility] Stop: 08/21/19 09:01 Last Admin: 02/20/19 08:13 Dose: 81 mg Documented by: Atorvastatin Calcium (Lipitor) 40 mg PO [facility] Stop: 08/21/19 21:01 Last Admin: 02/19/19 20:50 Dose: 40 mg Documented by: Cyanocobalamin (Vitamin B12) 500 mcg PO DAILY [facility] Stop: 08/21/19 09:01 Last Admin: 02/20/19 08:13 Dose: 500 mcg Documented by: Dextrose/Water (Dextrose 50% (Syg)) 25 ml IVP AD PRN PRN Reason: Hypoglycemia Stop: 08/21/19 01:16 Docusate Sodium (Colace) 100 mg PO DAILY [facility]; Protocol Stop: 08/21/19 09:01 Last Admin: 02/20/19 08:12 Dose: 100 mg Documented by: Doxepin HCl (Sinequan) 25 mg PO HS [facility] Stop: 08/21/19 21:01 Last Admin: 02/19/19 20:50 Dose: 25 mg Documented by: Ferrous Sulfate (Ferrous Sulfate) 325 mg PO DAILY [facility] Stop: 08/21/19 09:01 Last Admin: 02/20/19 08:13 Dose: 325 mg Documented by: Furosemide (Lasix) 20 mg PO DAILY PRN PRN Reason: Edema Stop: 08/21/19 08:07 Glucagon (Glucagen) 1 mg IM ONCE PRN PRN Reason: Hypoglycemia Stop: 08/21/19 01:16 Glucose (Gluctose) 15 gm PO ONCE PRN PRN Reason: Hypoglycemia Stop: 08/21/19 01:16 Glucose (Gluctose) 30 gm PO ONCE PRN PRN Reason: Hypoglycemia Stop: 08/21/19 01:16 Heparin Sodium (Porcine) (Heparin) 4,000 unit IVP Q6HR PRN PRN Reason: SEE COMMENTS Stop: 08/21/19 03:17 Last Admin: 02/20/19 03:16 Dose: 4,000 unit Documented by: Heparin Sodium (Porcine) (Heparin) 2,000 unit IVP Q6H PRN PRN Reason: SEE COMMENTS Stop: 08/21/19 03:17 Last Admin: 02/19/19 11:45 Dose: 2,000 unit Documented by: Dextrose (Dextrose 5%) 1,000 mls @ 100 mls/hr IVC .Q10H PRN PRN Reason: HYPOGLYCEMIA Stop: 08/21/19 01:16 Heparin Sodium/Dextrose (Heparin 25,000 Unit/250 Ml D5w) 25,000 unit in 250 mls @ 10.058 mls/hr IVC .Q24H [facility]; Protocol Stop: 08/21/19 03:31 Last Titration: 02/20/19 09:40 Dose: 0 unit/kg/hr, 0 mls/hr Documented by: Insulin Detemir (Levemir) 5 unit SQ HS [facility] Stop: 08/21/19 21:01 Last Admin: 02/19/19 20:51 Dose: 5 unit Documented by: Insulin Human Lispro (Humalog) 0 units SQ TIDAC [facility]; Protocol Stop: 08/21/19 16:31 Last Admin: 02/20/19 08:17 Dose: 6 units Documented by: Lidocaine HCl (Lidoderm 5% Patch) 1 each TP DAILY [facility] Stop: 08/21/19 15:01 Last Admin: 02/20/19 08:17 Dose: 1 each Documented by: Metoclopramide HCl (Reglan) 10 mg PO TIDAC [facility] Stop: 08/21/19 11:31 Last Admin: 02/20/19 08:13 Dose: 10 mg Documented by: Morphine Sulfate (Morphine) 1 mg IVP Q4HR PRN; Protocol PRN Reason: Breakthrough Pain Stop: 08/21/19 13:01 Last Admin: 02/19/19 14:30 Dose: 1 mg Documented by: Naloxone HCl (Narcan) 0.4 mg IVP Q2MPRN PRN PRN Reason: SEE COMMENTS Stop: 08/21/19 01:12 Nitroglycerin (Nitroglycerin) 0.4 mg SL Q5MPRN PRN PRN Reason: Chest Pain Stop: 08/20/19 19:27 Last Admin: 02/19/19 02:49 Dose: 0.4 mg Documented by: Omeprazole (Prilosec) 40 mg PO DAILY@0630 [facility]; Protocol Stop: 08/21/19 09:01 Last Admin: 02/20/19 05:36 Dose: Not Given Documented by: Oxycodone/Acetaminophen (Percocet 5/325) 2 each PO Q6HR [facility] Stop: 08/21/19 10:31 Last Admin: 02/20/19 08:12 Dose: 2 each Documented by: Pregabalin (Lyrica) 100 mg PO TID [facility] Stop: 08/21/19 09:01 Last Admin: 02/20/19 08:13 Dose: 100 mg Documented by: Primidone (Mysoline) 50 mg PO [facility] Stop: 08/21/19 21:01 Last Admin: 02/19/19 20:50 Dose: 50 mg Documented by: [facility]ralf[facility] ([facility]ate) [facility] Stop: 08/21/19 11:31 Last Admin: 02/20/19 08:13 Dose: 1 gm Documented by: - Imaging and Cardiology Echo: report reviewed Cardiac cath: pending Consult Discharge Plan - Plan Referrals: NONE,PCP [Primary Care Provider] - HAS-BLED Score - Score Hypertension: Uncontrolled,>160 mmhg systolic Elderly: Age>65 years Medication usage predisposing to bleeding: Antiplatelet agents, NSAIDs, Anticoagulants Score: 3
[2019-02-20] MEDS: Heparin 25,000 UNIT/250 ML D5W 25,000 UNIT/250 ML IV.SOLN IVC SCH (10:46)
[2019-02-20] MEDS: Nitroglycerin 0.4 MG TAB.SUBL SL PRN ×5 (10:55→21:41)
--- NOTE | 2019-02-20 12:23 | Internal Med Progress Note ---
Hospitalist Progress Note - Encounter Date of Encounter: 02/20/19 Time of Encounter: 09:15 - Subjective Interval History: Patient was seen this am, her pain is controlled today compared to yesterday. She still weak, denied any chest pain, sob or palpitations. She has no nausea or vomiting. - Exam Vitals: Temp Pulse Resp BP Pulse Ox 97.7 F 76 18 160/85 96 02/20/19 11:36 02/20/19 11:36 02/20/19 11:36 02/20/19 11:36 02/20/19 11:36 Exam: General: Alert and oriented. Calm in no distress. Skin: Normal color, no rash, no lesions. HEENT:Pupils equal, round and reactive. Cardiovascular: Heart sounds distant, no rubs, murmurs or gallops. Lungs:Breath sounds decreased, no wheezes or crackles. Abdomen:Soft, non-tender, no rigidity. Extremities:No deformity, tenderness, joint swelling or clubbing. Non pitting edema noted to bilateral lower extremities. Neurological:Normal cognition and motor skills. Pulses:Carotid and radial pulses normal +2. - Assessment and Plan (1) Chest pain Current Visit: Yes Status: Resolved (2) Increased white blood cell count Current Visit: Yes Status: Resolved (3) Thrombocytopenia Current Visit: Yes Status: Chronic (4) Chronic kidney disease Current Visit: Yes Status: Chronic (5) Diabetes mellitus Current Visit: Yes Status: Chronic (6) Chronic back pain Current Visit: Yes Status: Chronic (7) CLL (chronic lymphocytic leukemia) Current Visit: Yes Status: Chronic (8) UTI (urinary tract infection) Current Visit: No Status: Acute - Summary of Assessment and Plan Summary of Assessment and Plan: he is 68 o female with chronic back pain, IDDM, CLL not on active chemotherapy, CKD stage III was admitted to the hospital due to back pain and chest pain. Chest pain: - D-dimer and Troponin - x 3, Echo with preserved EF. EKG with possible changes. Cardiology is consulted, keep Heparin gtt, plans for LHC tomorrow. Continue ASA and lipitor. Chronic back pain: 2 recent MRI for the thoracic spine last one 01/31 with negative acute findings except for disc protrusions, most pronounced at T3-4, T6-7, T7-8 and T9-10 , MRI of the lumbar spine with OA changes. was evaluated by pain management service on 5/19 with Left L5 Dorsal Ramus, S1, S2 and S3 Lateral Branch Radiofrequency Neurolysis . Will manage her pain with lidocaine patch, percocet 10mg [id number]. Continue Lyrica BID. consult for pain service. UTI: UCx growing GNR, had leukocytosis, N/V and weakness at presentation, Started on Rocephin. Gastroparesis: Continue with antiemetic, reglan. IDDM: continue with ACCU checks TIDac and LSSI CLL: had chronic leukocytosis. Resolved. DVT ppx: heparin gtt - Time Spent with Patient Total time spent is greater than 50% in coordination of care (as documented) at patient's floor/unit and/or counseling patient: Plan of Care Discussed with: patient Internal Medicine: Result - Labs CBC & Chem 7: 02/20/19 00:51 02/20/19 00:51 Labs: Short CBC 02/20/19 Range/Units 00:51 WBC 10.4 (4.3-11.1) K/mcL Hgb 10.9 L (11.5-15.4) g/dL Hct 34.4 L (35.3-44.9) % Plt Count 125 L (140-400) K/mcL BMP 02/20/19 00:51 Sodium 137 Potassium 3.9 Chloride 100 Carbon Dioxide 26 BUN 13 Creatinine 0.84 Glucose 243 H Calcium 8.6 - ABG Interpretation ABG results: PT/INR, D-dimer PT 11.9 Seconds (9.4-12.1) 02/19/19 04:37 D-Dimer 336 ng/mLFEU (0-500) 02/18/19 19:26 Consult Discharge Plan - Plan Referrals: NONE,PCP [Primary Care Provider] - (1) Chest pain Qualifiers: Chest pain type: unspecified Qualified Code(s): R07.9 - Chest pain, unspecified (2) Increased white blood cell count Qualifiers: Leukocytosis type: unspecified Qualified Code(s): D72.829 - Elevated white blood cell count, unspecified (4) Chronic kidney disease Qualifiers: Chronic kidney disease stage: unspecified stage Qualified Code(s): N18.9 - Chronic kidney disease, unspecified (5) Diabetes mellitus Qualifiers: Diabetes mellitus type: type 2 Qualified Code(s): E11.9 - Type 2 diabetes mellitus without complications (6) Chronic back pain Qualifiers: Back pain location: thoracic back pain Back pain laterality: midline Qualified Code(s): M54.6 - Pain in thoracic spine; G89.29 - Other chronic pain (8) UTI (urinary tract infection) Qualifiers: Urinary tract infection type: site unspecified Hematuria presence: without he maturia Qualified Code(s): N39.0 - Urinary tract infection, site not specified
[2019-02-20] MEDS: cefTRIAXone 1,000 MG in Water for inj. (sterile) 10 ML IVP SCH (13:14)
[2019-02-20] MEDS: Insulin DETEMIR 100 UNIT/ML X5UNITS SQ SCH (21:31)
[2019-02-20] MEDS: Primidone 50 MG TABLET PO SCH (21:31)
[2019-02-20] MEDS ORDERED: Acetaminophen IV 1,000 MG/100 ML INFUS..BTL IVPB ONE (21:52)
[2019-02-21] MEDS: *HR* OxyCODONE/APAP 5/325 TABLET PO SCH ×5 (02:12→23:57)
[2019-02-21 05:27] LABS: Hematocrit 35.6 % (35.3-44.9); Mean Corpuscular HGB Conc 30.9 g/dL (31.6-35.5); Mean Corpuscular Hemoglobin 28.3 pg (28.0-33.3); Mean Corpuscular Volume 91.5 fL (83.0-100.0); Mean Platelet Volume 11.2 fL (9.4-12.4); Platelet Count 134 K/mcL (140-400); Red Blood Count 3.89 M/mcL (3.82-4.97); Red Cell Distribution Width 15.3 % (11.5-14.5); White Blood Count 15.1 K/mcL (4.3-11.1)
[2019-02-21 05:43] LABS: BUN/Creatinine Ratio 15 (6-26); Blood Urea Nitrogen 15 mg/dL (8-23); Calcium 8.7 mg/dL (8.6-10.3); Carbon Dioxide 25 mEq/L (23-29); Chloride 101 mEq/L (98-107); Glucose 253 mg/dL (70-105); Osmolality,Calculated 297 (280-300); Potassium 3.6 mEq/L (3.5-5.1); Sodium 139 mEq/L (136-145); eGFR For African Americans > 60 (> 60); eGFR For Non-African Americans 57 (> 60)
[2019-02-21] MEDS: Heparin 25,000 UNIT/250 ML D5W 25,000 UNIT/250 ML IV.SOLN IVC SCH (05:48)
[2019-02-21] MEDS: Insulin LISPRO 300 UNITS/3 ML VIAL SQ SCH ×3 (08:13→18:05)
[2019-02-21] MEDS: Cyanocobalamin (B-12) 1,000 MCG TABLET PO SCH (08:17)
[2019-02-21] MEDS: cefTRIAXone 1,000 MG in Water for inj. (sterile) 10 ML IVP SCH (08:18)
[2019-02-21] MEDS: Ascorbic Acid 500 MG TABLET PO SCH (08:18)
[2019-02-21] MEDS: Pregabalin 50 MG CAPSULE PO SCH ×2 (08:18→20:36)
[2019-02-21] MEDS: Aspirin 81 MG TAB.CHEW PO SCH (08:18)
--- NOTE | 2019-02-21 08:39 | Event Note ---
Date of Encounter: 02/21/19 Time of Encounter: 08:40 - Cardiology Event Note Selected Entries 02/21/19 07:15 Temperature 98.1 F Pulse Rate 86 Respiratory Rate 16 Blood Pressure 146/83 O2 Sat by Pulse Oximetry 94 Oxygen Delivery Method Room Air Laboratory Tests 02/21/19 02/21/19 04:45 04:45 Hgb 11.0 L Hct 35.6 Creatinine 0.97 Est GFR (Non-Af Amer) 57 L [facility] [place] today pending. Had N&V this am being managed by primary service. C/o CP 03/24 during vomiting. ECG showed now significant changes from baseline. Patient confirmed desire to be full code.
--- NOTE | 2019-02-21 08:49 | Pre-Sedation Evaluation ---
Pre-sedation evaluation - Pre-sedation checklist Date of procedure: 02/21/19 Procedure: heart cath Recent Vitals: Last Vital Signs Temp 98.1 F 02/21/19 07:15 Pulse 86 02/21/19 07:15 Resp 16 02/21/19 07:15 BP 146/83 02/21/19 07:15 Pulse Ox 94 02/21/19 07:15 H&P (including ROS) documented in medical record: Yes Previous reaction to sedatives/anesthetics: No Dietary Status: NPO after Midnight Dentition: No loose teeth or bridges ASA Classification *see protocol: CLASS II-Mild systemic disease Plan of Care: Pt appropriate candidate for procedure/moderate/conscious sedation, Risks/benefits of procedure/sedation discussed w/ patient/family Cardiac Registry (Cardio Only) - Functional Capacity Functional Capacity: >=4 METS with symptoms - Clincal Frailty Scale Clinical Frailty Scale: Managing Well
--- NOTE | 2019-02-21 09:01 | Electrocardiograph Report ---
[employer] Test Date: 2019-02-18 Pat Name: Carmen Vargas Department: [id number] Room: 3B47 Gender: F [employer] Builder: : 1950 Requested By: [id number] Order Number: [id number] Reading MD: Singh Garza Measurements Intervals [place] Rate: 96 P: 68 AL: 139 QRS: 70 QRSD: 93 T: 57 QT: 360 QTc: 455 Interpretive Statements Sinus arrhythmia Low voltage, precordial leads Probable anteroseptal infarct, old pvc Electronically Signed On 02-21-2019 9:00:19 EDT by Singh Garza
--- NOTE | 2019-02-21 09:01 | Electrocardiograph Report ---
[employer] Test Date: 2019-02-18 Pat Name: Carmen Vargas Department: [id number] Room: 3B47 Gender: F Diaper Folder: : 1950 Requested By: [id number] Order Number: [id number] Reading MD: Singh Garza Measurements Intervals [place] Rate: 82 P: 69 NV: 141 QRS: 66 QRSD: 101 T: 54 QT: 411 QTc: 480 Interpretive Statements Sinus rhythm wnl Electronically Signed On 02-21-2019 9:00:39 EDT by Singh Garza
[2019-02-21] MEDS: *HR* Promethazine 25 MG/ML VIAL IVP PRN ×2 (09:58→18:42)
[2019-02-21] MEDS ORDERED: Iopamidol 125 ML INFUS..BTL ONE (10:44)
[2019-02-21] MEDS ORDERED: Heparin 1,000 UNITS/500 mL 500 ML ONE (10:44)
[2019-02-21] MEDS ORDERED: *HR* Heparin 10,000 UNIT/10 ML VIAL ONE (10:44)
[2019-02-21] MEDS ORDERED: 0.9 % Sodium Chloride 1,000 ML ONE ×2 (10:44→10:49)
[2019-02-21] MEDS ORDERED: Nitroglycerin 1,000 MCG/10 ML VIAL IV ONE (10:45)
--- NOTE | 2019-02-21 11:39 | Internal Med Progress Note ---
Hospitalist Progress Note - Encounter Date of Encounter: 02/21/19 Time of Encounter: 10:00 - Subjective Interval History: Patient was seen this morning, she is a complaining about back pain that is not controlled with Percocet 10 mg every 6 hours. She was also nauseous however she did not have any vomiting. - Exam Vitals: Temp Pulse Resp BP Pulse Ox 98.1 F 86 16 146/83 94 02/21/19 07:15 02/21/19 07:15 02/21/19 07:15 02/21/19 07:15 02/21/19 07:15 Exam: General: Alert and oriented. mild distress. Skin: Normal color, no rash, no lesions. HEENT:Pupils equal, round and reactive. Cardiovascular: Heart sounds distant, no rubs, murmurs or gallops. Lungs:Breath sounds decreased, no wheezes or crackles. Abdomen:Soft, non-tender, no rigidity. Extremities:No deformity, tenderness, joint swelling or clubbing. Non pitting edema noted to bilateral lower extremities. Neurological:Normal cognition and motor skills. Pulses:Carotid and radial pulses normal +2. - Assessment and Plan (1) Chronic back pain Current Visit: Yes Status: Acute (2) Increased white blood cell count Current Visit: Yes Status: Acute (3) Thrombocytopenia Current Visit: Yes Status: Chronic (4) Chronic kidney disease Current Visit: Yes Status: Chronic (5) Diabetes mellitus Current Visit: Yes Status: Chronic (6) CLL (chronic lymphocytic leukemia) Current Visit: Yes Status: Chronic (7) UTI (urinary tract infection) Current Visit: No Status: Acute - Summary of Assessment and Plan Summary of Assessment and Plan: he is 68 o female with chronic back pain, IDDM, CLL not on active chemotherapy, CKD stage III was admitted to the hospital due to back pain and chest pain. Chest pain: - D-dimer and Troponin - x 3, Echo with preserved EF. EKG with possible changes. Cardiology is consulted, keep Heparin gtt, plans for LHC tomorrow. Continue ASA and lipitor. Chronic back pain: 2 recent MRI for the thoracic spine last one 01/31 with nega tive acute findings except for disc protrusions, most pronounced at T3-4, T6-7, T7-8 and T9-10 , MRI of the lumbar spine with OA changes. was evaluated by pain management service on 10/31 with Left L5 Dorsal Ramus, S1, S2 and S3 Lateral Branch Radiofrequency Neurolysis . Thoracic X ray on 02/20 was negative for acute fracture. Will manage her pain with lidocaine patch, percocet 10mg [id number], and toradol. Continue Lyrica BID. D/W with Dr. Montes who does only outpatient care. He recommends outpatient follow up after discharge. UTI: UCx growing GNR, had leukocytosis, N/V and weakness at presentation, on Rocephin day 2. Gastroparesis: Continue with antiemetic, reglan. IDDM: continue with ACCU checks TIDac and LSSI with levemir 10 units HS. CLL: had chronic leukocytosis. DVT ppx: heparin gtt - Time Spent with Patient Total time spent is greater than 50% in coordination of care (as documented) at patient's floor/unit and/or counseling patient: Plan of Care Discussed with: patient Internal Medicine: Result - Labs CBC & Chem 7: 02/21/19 04:45 02/21/19 04:45 Labs: Short CBC 02/21/19 Range/Units 04:45 WBC 15.1 H (4.3-11.1) K/mcL Hgb 11.0 L (11.5-15.4) g/dL Hct 35.6 (35.3-44.9) % Plt Count 134 L (140-400) K/mcL BMP 02/21/19 04:45 Sodium 139 Potassium 3.6 Chloride 101 Carbon Dioxide 25 BUN 15 Creatinine 0.97 Glucose 253 H Calcium 8.7 - ABG Interpretation ABG results: PT/INR, D-dimer PT 11.9 Seconds (9.4-12.1) 02/19/19 04:37 D-Dimer 336 ng/mLFEU (0-500) 02/18/19 19:26 - Impressions Impressions Thoracic Spine X-Ray 02/20/19 10:02 IMPRESSION: 1. Ebed-[id number]-osrlaapn multilevel spondylosis. If there is point tenderness, recommend nonemergent MRI of the thoracic spine. D/ / Venkat Vasquez MD / Venkat Vasquez MD Interpreting Provider: Venkat Vasquez MD Consult Discharge Plan - Plan Referrals: Deepak Montes DO [Partnered Physician] - 03/03/19 10:45 am Cyndi Estes MD [Partnered Physician] - 08/11/19 10:35 am Tung Larry DO [Partnered Physician] - 05/02/19 8:30 am Mariaelena Vasquez CNP [Advanced Practice Nurse] - 05/20/19 10:40 am (1) Chronic back pain Qualifiers: Back pain location: thoracic back pain Back pain laterality: midline Qualified Code(s): M54.6 - Pain in thoracic spine; G89.29 - Other chronic pain (2) Increased white blood cell count Qualifiers: Leukocytosis type: unspecified Qualified Code(s): D72.829 - Elevated white blood cell count, unspecified (4) Chronic kidney disease Qualifiers: Chronic kidney disease stage: unspecified stage Qualified Code(s): N18.9 - Chronic kidney disease, unspecified (5) Diabetes mellitus Qualifiers: Diabetes mellitus type: type 2 Qualified Code(s): E11.9 - Type 2 diabetes mellitus without complications (7) UTI (urinary tract infection) Qualifiers: Urinary tract infection type: site unspecified Hematuria presence: without hematuria Qualified Code(s): N39.0 - Urinary tract infection, site not specified
[2019-02-21] MEDS ORDERED: *HR* FentaNYL (PF) 100 MCG/2 ML VIAL ONE (12:22)
[2019-02-21] MEDS ORDERED: *HR* Midazolam HCl 2 MG/2 ML VIAL ONE (12:22)
[2019-02-21] MEDS ORDERED: Verapamil 5 MG/2 ML VIAL ONE (12:50)
--- NOTE | 2019-02-21 13:21 | Invasive Diagnostic Lab Proc ---
Name: Carmen Vargas Date of Study: 02/21/2019 Date: 1950 Ht: 68.9in Medical Record#: [id number] Age: 68 Wt: 227.08lb Gender: Female BSA: 2.18 Order #: [id number] BMI: 33.63 Physicians Procedure Physician: Westley Ayers MD, FACC Referring MD: Referring MD: Staff Name Position [facility] Monitor 12:27 PM Eze Mcfarlane RN Vessel Slag Worker 12:27 PM Rosa Maria Ladd RT (R) Scrub 12:27 PM Procedures Performed Procedure L HRT ARTERY/VENTRICLE ANGIO Pre-Procedure Checklist Pt not NPO for procedure and MD aware. Plan of Care Patient will tolerate the procedure without complications. Adequate level of comfort will be maintained. Hemodynamics will remain stable Patient will recover from procedure without complications. Respiratory function will be maintained. Cardiac rhythm will remain stable. Patient temperature will be maintained. Patient and/or family have verbalized understanding of the procedure. Patient Education Chief Complaint/Reason for Test: Cardiac Cath Developmental Category: Geriatric (65+ years) Developmentally Appropriate for Age: Yes Learning Barriers: None Education Needs: Procedure Education Method: Verbal Information Taught: Cardiac Cath Educational Evaluation: Able to repeat information Allergies Sulfa (Sulfonamide Antibiotics) trimethoprim sulfamethoxazole metformin Vital Signs Time BP (mmHg) HR (bpm) O2 Sat. RR (bpm) LOC 12:48 PM / % 5 = Fully awake and oriented or at pre-proc level 12:48 PM / % 5 = Fully awake and oriented or at pre-proc level 12:46 PM 155 / 73 83 100 % 14 12:51 PM 156 / 77 69 100 % 13 12:56 PM 153 / 70 70 100 % 13 01:01 PM 147 / 72 79 99 % 12 01:06 PM 152 / 71 81 98 % 12 Procedural Medications Time Medication Dose Units Method Given By 12:45 PM Oxygen 2 L/min nasal cannula Eze Mcfarlane RN 12:45 PM Versed 2 mg Intravenous Eze Mcfarlane RN 12:45 PM Fentanyl 50 mcg Intravenous Eze Mcfarlane RN 12:56 PM Lidocaine 2% 1 ml Subcutaneous Westley Ayers MD, FACC 12:59 PM Heparin 2000 units Nitroglycerin 200 mcg Verapamil 2.5 mg Intraarterial Westley Ayers MD, FACC ASA Classification: CLASS II- Mild systemic disease (i.e. well-controlled diabetes, hypertension, asthma, cigarette smoking) Nhung Score Preprocedure Postprocedure Activity 2- Moves 4 extremities sustained head lift Activity 2- Moves 4 extremities sustained head lift Circulation 2- SBP +/= 20 points of pre-anesthetic level Circulation 2- SBP +/= 20 points of pre-anesthetic level Consciousness 1- Responds to verbal stimuli drowsy Consciousness 1- Responds to verbal stimuli drowsy O2 Saturation 2- Able to maintain O2 satruation of 92% on room air O2 Saturation 2- Able to maintain O2 satruation of 92% on room air Respiratory 2- Able to deep breathe and cough well Respiratory 2- Able to deep breathe and cough well Total Score 9 Total Score 9 Contrast Agent: Isovue Diagnostic Contrast: 60 ml Total Contrast: 60 ml Fluoro Dose: 17 mGy Procedure Log Time Note Enter By 12:27 PM CathStat 12:27 PM Dea Shabazz RN Position: Monitor Time in: 12:27 [facility] 12:27 PM Eze Mcfarlane RN Position: Vessel Slag Worker Time in: 12:27 [facility] 12:27 PM Rosa Maria Ladd RT (R) Position: Scrub Time in: 12:27 [facility] 12:37 PM Pt arrived to [employer] [facility] at 12[facility]37 [facility] 12[facility]37 PM Physician arrived 12:37 [facility] 12:38 PM Meet and greet completed [facility] 12:38 PM Sign in performed according to hospital policy. Informed consent was obtained. [facility] 12:38 PM Procedure start 12:38 [facility] 12:45 PM Vitals capture started with the following parameters, Patient=Adult, Interval=5 min, Initial Szisszxi=518 mmHg, Deflation Rate=3 mmHg, Cuff placed on Right Arm 12:45 PM Recorded ECG: HR=72 Condition=Condition 1 12:45 PM Time: 12:45 Oxygen on at 2 L/min per nasal cannula by [facility] 12[facility] PM Time: 12:45 Versed 2 mg Intravenous Given by Eze Mcfarlane RN 12:45 PM Time: 12:45 Fentanyl 50 mcg Intravenous Given by Andexler, Eze S RN tsoummers 12:46 PM HR=83 bpm, TKMX=662/73 mmhg, GjS6=162.0 %, Resp=14 B/min 12:47 PM Hair removed from procedure site in holding area using clippers. Right wrist and Right groin prepped with Chloraprep by Dea Shabazz RN, then patient was draped. Skin intact. tsoummers 12:48 PM ASA Class CLASS II- Mild systemic disease (i.e. well-controlled diabetes, hypertension, asthma, cigarette smoking) tsoummers 12:48 PM Time: 12:48 Patient comfortable and pain free: Yes tsoummers 12:48 PM Time: 12:48LOC: 5 = Fully awake and oriented or at pre-proc level tsoummers 12:51 PM HR=69 bpm, YZSR=279/77 mmhg, CcY7=963.0 %, Resp=13 B/min 12:51 PM Pressure channel 1 zero failed. 12:51 PM Pressure channel 1 zeroed. 12:56 PM HR=70 bpm, JBQH=905/70 mmhg, GdE0=480.0 %, Resp=13 B/min 12:56 PM Time out was performed according to hospital policy. Conscious sedation and anesthesia was achieved (see medication log with in this report above) tsoummers 12:57 PM Time: 12:56 1 ml Lidocaine 2% to right radial Subcutaneous Given by Westley Ayers MD, [facility] tsoummers 12:59 PM Access obtained by percutaneous puncture. 5-6Fr 10cm Terumo Glidesheath sheath placed in right Radial artery. [id number] oummers 12:59 PM Time: 12:59 Patient given 2,000 units Heparin, 200 mcg Nitroglycerin, and 2.5 mg Verapamil Intraarterial by Westley Ayers MD, [facility]. This is given to reduce risk of vessel spasm and thrombosis. tsoummers 01:00 PM 0.035 260cm Navilyst 3mmJ wire [id number] [facility] 01:00 PM 5Fr TIG catheter inserted over the wire [facility] 01:00 PM wire removed tsoummers 01:01 PM HR=79 bpm, VKUP=107/72 mmhg, SpO2=99.0 %, Resp=12 B/min 01:01 PM LCA angiography performed in multiple views. tsoummers 01:01 PM Recorded Pressure: Ao, HR=76, Condition=Condition 1 (Aorta) Ao 117/75/95 01:04 PM Time: 12:48LOC: 5 = Fully awake and oriented or at pre-proc level tsoummers :04 PM Time: 12:48 Patient comfortable and pain free: Yes tsoummers 01:04 PM RCA angiography performed in multiple views. tsoummers 01:04 PM Catheter removed tsoummers 01:04 PM Lesion found in Mid RCA. Pre Stenosis: 20 Pre JENARO Flow: tsoummers 01:04 PM Lesion found in Mid LAD. Pre Stenosis: 30 Pre JENARO Flow: tsoummers 01:04 PM 5Fr Pigtail catheter inserted over the wire DNC tsoummers 01:05 PM Lesion found in Left PDA. Pre Stenosis: 40 Pre JENARO Flow: tsoummers 01:05 PM Mid/Distal Left Anterior Descending Coronary Artery and diagonal branches with 30% stenosis. If graft is supplying this area, 0 % stenosis tsoummers 01:05 PM Right Coronary, Right Posterior Descending Arteries with Right Posterolateral and Acute Marginal branches with 20 % stenosis. If graft is supplying this area, 0 % stenosis tsoummers 01:05 PM Coronary Dominance: Co-dominant tsmmers 01:05 PM Catheter crossed the aortic valve and was selectively placed in the left ventricle. Pressures recorded on pullback for left heart catheterization. mm 01:06 PM Bolus angiogram of left Ventricle complete: 10 ml/sec for a total of 20 mls tsmmers 01:06 PM HR=81 bpm, QGWE=877/71 mmhg, SpO2=98.0 %, Resp=12 B/min 01:06 PM Recorded Pressure: LV, HR=28, Condition=Condition 1 (Left Ventricle) LV 152/-114/12 01:06 PM Recorded Pressure: LV, Ao, HR=89, Condition=Condition 1 (Left Ventricle) LV 146/7/33, (Aorta) Ao 147/70/106 01:08 PM Procedure completed at 13:08 02/21/2019 [email or web address] 01:08 PM Did you address JENARO flow and Dominance? YesCoronary Dominance: Co-dominant tsoummers 01:08 PM Sign out completed: Radiation Dose 135.11 mGy, 16.7 Gy/cm2 Fluoro Time: 1.7 Isovue 370 - 200ml contrast 60 ml given by Westley Ayers MD, [facility]. Complications: None. The patient was discharged out of the metallurgical laboratory assistant in stable condition. Sedation minutes 18. Cardiac Rehab Consult needed: No. Confirmed administered medications: Yes tsoummers 01:08 PM Isovue 370 - 200ml,1 Bottle(s) used. tsoummers 01:09 PM Arterial sheath pulled, Vasc Band closure device used and was Successful 12cc S/N. tsoummers 01:09 PM 12 ml air in Vasc Band. tsoummers 01:09 PM Estimated Blood Loss: minimal tsoummers 01:09 PM Post ECG NSR tsoummers 01:09 PM Post Blood Pressure 152/71 tsoummers 01:09 PM 13:09 Post Pulses Rt Radial 1+ tsoummers 01:10 PM Information taught Cardiac Cath and Vasc Band tsoummers 01:10 PM Education needs Procedure, Plan of Care, and Responsibilities of Patient in Care tsoummers 01:10 PM Learning barriers :sedated tsoummers 01:10 PM Education Methods Verbal tsoummers 01:10 PM Education evaluation Able to repeat information tsoummers 01:10 PM Site status No bleeding/ No Hematoma - Rt Wrist as reported by Rosa Maria Ladd RT (R) at 13:10 tsoummers 01:10 PM Plavix, Effient or Brilinta given No tsoummers 01:10 PM Delay to floor No tsoummers 01:10 PM Family placed in consult room. tsoummers 01:13 PM Report given to Carmen RN Pt taken to Room #47. 13:13 tsoummers 01:14 PM Report given to Gale RN Pt taken to Room #47. 13:14 tsoummers 01:14 PM Patient out of room: 13:14 tsoummers Complications Complication None Hemodynamics Pressures Site Systolic/A Wave Diastolic/V Wave Mean AO 117 75 95 LV 152 -114 12 LV 146 7 33 AO 147 70 106 Post Procedure Information Blood Pressure: 152/71 mmHg Rhythm: NSR Post procedural instructions were given Closure Device Time Device Success/Fail 02/21/2019 1:09:00 PM Mechanical Compression Successful Site Checks Time Location Status Staff Sheath In? Note 01:10 PM Rt Wrist No bleeding/ No Hematoma Rosa Maria Ladd RT (R) Pulses Time Site Pre-Procedure Post-Procedure Note 02/21/2019 12:26:00 PM Bilateral radial 2+ 02/21/2019 12:26:00 PM Bilateral DP & PT 1+ 1:09:00 PM Rt Radial 1+ Updated by Dea Shabazz RN on 02/21/2019 1:14:37 PM electronically signed on 02/21/2019 1:15:08 PM with status of Final
--- NOTE | 2019-02-21 13:24 | Event Note ---
Date of Encounter: 02/21/19 Time of Encounter: 13:20 - Cardiology Event Note Per discussion with Dr. 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 Evaluate noncardiac causes of symptoms. Cardiology signing off, follow-up arranged.
[2019-02-21] MEDS: Ketorolac 15 MG/ML VIAL IVP PRN (14:20)
--- NOTE | 2019-02-21 16:32 | Oncology Inp Consult Note ---
Date of Encounter: 02/21/19 Time of Encounter: 16:29 Assessment and Plan (1) CLL (chronic lymphocytic leukemia) Status: Chronic Assessment and plan: Her lymphocyte counts have been stable around 10,000. Platelets low normal. Hemoglobin also stable around 11. CT scan 03/03/2019 showed small increase in lymphadenopathy. Currently no indication for treatment and we will continue observation. I do not think it contributed to her current chest pain Mild anemia is rightly anemia of chronic disease. Ferritin mildly elevated and normal iron. B12 folate and TSH unremarkable. Creatinine normal (2) Chest pain Status: Resolved Assessment and plan: Admitted with chest pain. Echocardiogram ejection fraction 60-65%. Cardiac catheterization no major blockage per cardiology Qualifiers: Chest pain type: unspecified Qualified Code(s): R07.9 - Chest pain, unspecified (3) Type 2 diabetes mellitus Status: Chronic Assessment and plan: Need better controlled. Blood glucose average is between 200-250 Qualifiers: Diabetes mellitus halfway insulin use: with halfway use Diabetes mellitus complication status: with kidney complications Diabetes mellitus complication detail: with chronic kidney disease Chronic kidney disease stage: stage 3 (moderate) Qualified Code(s): E11.22 - Type 2 diabetes mellitus with diabetic chronic kidney disease; N18.3 - Chronic kidney disease, stage 3 (moderate); Z79.4 - senior care (current) use of insulin - Data of Consult Patient: known to practice within the last 3 years Requesting Physician: Chandana Soria Primary Care Provider: PCP NONE - Consult Narrative Reason for consult: CLL with mild increase in lymphadenopathy History of present illness: Patient was hospitalized with chest pain. Left heart catheterization 02/21/[address]. CT scan dissection protocol chest abdomen and pelvis with and without contrast 04/20/2009 showed gastrohepatic lymph node 8 mm short axis. Periportal lymph node 1.9 cm short axis. Axillary right 1.9 cm slightly increased in the left 1.5 cm also slightly increased compared to 06/28/2018. She has complaints of pain in the left costochondral junction third and fourth he is. There is focal tenderness. She has baseline deconditioning. Shortness of breath with exertion also at baseline. Appetite okay. No fever chills. No nausea Oncological history 1. CLL,/SLL. Coreas stage I. Normal cytogenetics by fish panel Peripheral blood flow cytometry showed changes consistent with CLL She never had treatment for CLL Indication for treatment Recurrent abdominal pain etiology not clear. It was thought CLL may be playing a role in her abdominal pain. Ibrutinib 420 mg by mouth daily Treatment dates from 07/02/2018 to 07/12/2018 Treatment stopped it due to confusion which could be from Ibrutinib. Some of that could be from her hyperglycemia as well as Overall she responded favorably. Past Med Surg Social Fam HX - Past Medical History Medical history: cancer, COPD, diabetes, GERD, hypertension, renal disease, other Additional medical history: CLL, Chronic Back Pain Psychiatric history: depression - Past Surgical History Surgical History: appendectomy, cholecystectomy, knee replacement, THERESE/BSO Additional surgical history: Left total knee replacement - Social History Smoking Status: Never smoker Smokeless Tobacco Status: No Alcohol use: none Drug use: none - Family History Mother Family Member Ethnicity: Non- Living Status: Hx Family Cardiac Disorders: No Hx Family Respiratory Disorders: No Hx Family Cancer: No Hx Family GI Disorders: No Hx Family Endocrine Disorder: Yes (DM) Hx Family Neuromuscular Disorders: No Hx Family Neurologic Disorders: No Hx Family HEENT Disorders: No Hx Family Autoimmune Disorders: No Father Adopted: No Family Member Ethnicity: Non- Living Status: Hx Family Cardiac Disorders: Yes ([place]) Hx Family Respiratory Disorders: No Hx Family Cancer: No Hx Family GI Disorders: No Hx Family Endocrine Disorder: No Hx Family Neuromuscular Disorders: No Hx Family Neurologic Disorders: No Hx Family HEENT Disorders: No Hx Family Autoimmune Disorders: No Medications and Allergies Primidone [Mysoline] 50 mg PO HS 02/28/16 [History] Ascorbic Acid [Vitamin C] 500 mg PO DAILY 03/06/16 [History] Cyanocobalamin (Vitamin B-12) [Vitamin B-12] 500 mcg PO DAILY 05/06/17 [History] Linagliptin [Tradjenta] 5 mg PO DAILY 05/06/17 [History] Atorvastatin [Lipitor] 40 mg PO HS 12/06/17 [History] Furosemide [Lasix] 20 mg PO DAILY PRN 01/16/18 [History] Loperamide [Imodium] 2 mg PO BID 06/17/18 [History] Metoclopramide [Reglan] 10 mg PO TID 06/17/18 [History] Doxepin HCl 20 mg PO HS 12/15/18 [History] Insulin LISPRO [Humalog Kwikpen U-100] 0 unit SQ QIDAC 12/15/18 [History] Aspirin 81 mg PO DAILY tab.chew 12/18/18 [Rx] Docusate [Colace] 100 mg PO DAILY capsule 12/18/18 [Rx] Ferrous Sulfate 325 mg PO DAILY tablet 12/18/18 [Rx] Oxycodone HCl/Acetaminophen [Percocet 5-325 mg Tablet] 1 each PO Q6HR PRN 7 Days #30 tablet 12/18/18 [Rx] Pregabalin [Lyrica] 100 mg PO TID 30 Days #90 capsule 12/18/18 [Rx] Sucralfate [Carafate] 1 gm PO QIDAC udc 12/18/18 [Rx] Metoprolol [Lopressor] 25 mg PO DAILY 02/18/19 [History] Omeprazole [PriLOSEC] 40 mg PO DAILY 02/18/19 [History] Pioglitazone [Actos] 15 mg PO DAILY 02/18/19 [History] Allergy/AdvReac Type Severity Reaction Status Date / Time metformin Allergy Nausea Verified 12/14/18 00:45 Sulfa (Sulfonamide Allergy Nausea Verified 12/14/18 00:45 Antibiotics) sulfamethoxazole Allergy Nausea Verified 12/14/18 00:45 [From Bactrim] trimethoprim [From Bactrim] Allergy Nausea Verified 12/14/18 00:45 Review of systems: 12 point review of systems obtained. All negative except left anterior rib cage/costochondral junction area tenderness/pain. Shortness of breath with exertion. No fever chills or weight loss. Mild deconditioning Oncology - Exam - Constitutional Exam: GENERAL: Alert and oriented, well appearing. Mental Status: Affect appropriate for circumstances HEENT: Sclerae anicteric. No mucositis or thrush. No other oral or pharyngeal lesions or erythema. Skin: No rashes or petechiae. No evidence of skin malignancy Lymph nodes: No cervical, supraclavicular, axillary, or inguinal adenopathy. Lungs: Clear to auscultation and percussion bilaterally. Cardiovascular: Regular rate and rhythm. No gallops, murmurs, or rubs. Abdomen: Soft, nontender; no organomegaly or masses palpable. Extremities: No edema. No calf swelling or tenderness. No joint deformity. Neurologic: Alert, cranial nerves II-XII intact; normal gait; no focal weakness or sensory abnormalities. 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 Terry Estes Consult - Inpatient: [id number]
[2019-02-21] MEDS: *HR* Heparin 5,000 UNIT/ML VIAL SQ SCH (18:05)
[2019-02-21] MEDS: Insulin DETEMIR 100 UNIT/ML X5UNITS SQ SCH (20:37)
[2019-02-22 03:56] LABS: Hematocrit 34.8 % (35.3-44.9); Hemoglobin 10.9 g/dL (11.5-15.4); Mean Corpuscular HGB Conc 31.3 g/dL (31.6-35.5); Mean Corpuscular Hemoglobin 28.2 pg (28.0-33.3); Mean Corpuscular Volume 90.2 fL (83.0-100.0); Mean Platelet Volume 10.6 fL (9.4-12.4); Platelet Count 115 K/mcL (140-400); Red Blood Count 3.86 M/mcL (3.82-4.97); Red Cell Distribution Width 15.3 % (11.5-14.5); White Blood Count 9.5 K/mcL (4.3-11.1)
[2019-02-22 04:14] LABS: BUN/Creatinine Ratio 16 (6-26); Blood Urea Nitrogen 15 mg/dL (8-23); Calcium 8.8 mg/dL (8.6-10.3); Carbon Dioxide 29 mEq/L (23-29); Chloride 105 mEq/L (98-107); Glucose 233 mg/dL (70-105); Osmolality,Calculated 298 (280-300); Potassium 3.5 mEq/L (3.5-5.1); Sodium 140 mEq/L (136-145); eGFR For African Americans > 60 (> 60); eGFR For Non-African Americans 59 (> 60)
[2019-02-22] MEDS: *HR* OxyCODONE/APAP 5/325 TABLET PO SCH ×3 (05:11→19:29)
[2019-02-22] MEDS: *HR* Heparin 5,000 UNIT/ML VIAL SQ SCH ×2 (05:12→17:12)
[2019-02-22] MEDS: *HR* Promethazine 25 MG/ML VIAL IVP PRN ×2 (08:37→21:33)
[2019-02-22] MEDS: cefTRIAXone 1,000 MG in Water for inj. (sterile) 10 ML IVP SCH (08:39)
[2019-02-22] MEDS: Insulin LISPRO 300 UNITS/3 ML VIAL SQ SCH ×4 (08:41→17:20)
[2019-02-22] MEDS: Cyanocobalamin (B-12) 1,000 MCG TABLET PO SCH ×2 (10:26→10:35)
[2019-02-22] MEDS: Aspirin 81 MG TAB.CHEW PO SCH (10:26)
[2019-02-22] MEDS: Ascorbic Acid 500 MG TABLET PO SCH (10:27)
[2019-02-22] MEDS: Pregabalin 50 MG CAPSULE PO SCH ×2 (10:27→21:35)
[2019-02-22] MEDS ORDERED: Benzonatate 100 MG CAPSULE PO PRN (10:53)
[2019-02-22] MEDS: Ketorolac 15 MG/ML VIAL IVP PRN ×2 (11:08→17:12)
[2019-02-22] MEDS: Nitroglycerin 0.4 MG TAB.SUBL SL PRN (12:54)
--- NOTE | 2019-02-22 13:43 | Internal Med Progress Note ---
Hospitalist Progress Note - Encounter Date of Encounter: 02/22/19 Time of Encounter: 09:35 - Subjective Interval History: Patient was in this morning, today she is complaining about abdominal pain but her back pain is improving. She has nausea but no vomiting. - Exam Vitals: Temp Pulse Resp BP Pulse Ox 97.8 F 82 18 121/76 96 02/22/19 11:30 02/22/19 11:30 02/22/19 11:30 02/22/19 11:30 02/22/19 11:30 Exam: General: Alert and oriented. mild distress. Skin: Normal color, no rash, no lesions. HEENT:Pupils equal, round and reactive. Cardiovascular: Heart sounds distant, no rubs, murmurs or gallops. Lungs:Breath sounds decreased, no wheezes or crackles. Abdomen:Soft, non-tender, no rigidity. Extremities:No deformity, tenderness, joint swelling or clubbing. Non pitting edema noted to bilateral lower extremities. Neurological:Normal cognition and motor skills. Pulses:Carotid and radial pulses normal +2. - Assessment and Plan (1) Chronic back pain Current Visit: Yes Status: Acute (2) Increased white blood cell count Current Visit: Yes Status: Acute (3) Thrombocytopenia Current Visit: Yes Status: Chronic (4) Chronic kidney disease Current Visit: Yes Status: Chronic (5) Diabetes mellitus Current Visit: Yes Status: Chronic (6) CLL (chronic lymphocytic leukemia) Current Visit: Yes Status: Chronic (7) UTI (urinary tract infection) Current Visit: No Status: Acute - Summary of Assessment and Plan Summary of Assessment and Plan: he is 68 o female with chronic back pain, IDDM, CLL not on active chemotherapy, CKD stage III was admitted to the hospital due to back pain and chest pain. Chronic back pain: 2 recent MRI for the thoracic spine last one 01/31 with negative acute findings except for disc protrusions, most pronounced at T3-4, T6-7, T7-8 and T9-10 , MRI of the lumbar spine with OA changes. was evaluated by pain management service on 10/31 with Left L5 Dorsal Ramus, S1, S2 and S3 Lateral Branch Radiofrequency Neurolysis . Thoracic X ray on 02/20 was negative for acute fracture. CT thoracic spine with no fracture however interfered disc osteophyte and disc bulging [id number] manage her pain with lidocaine patch, percocet 10mg U7spfmt, and toradol. Continue Lyrica BID. D/W with Dr. Montes who does only outpatient care. He recommends outpatient follow up after discharge. Esophagitis: Continue Carafate and PPI. Chest pain: - D-dimer and Troponin - x 3, Echo with preserved EF. EKG with possible changes. Cardiology is consulted, dc Heparin gtt, LHC wihout critical stenosis. Continue ASA and lipitor. UTI: UCx growing GNR, had leukocytosis, N/V and weakness at presentation, on Rocephin day 3/5. Gastroparesis: Continue with antiemetic. IDDM: continue with ACCU checks TIDac and LSSI with levemir 10 units HS. CLL: had chronic leukocytosis. normal number today DVT ppx: heparin SC - Time Spent with Patient Total time spent is greater than 50% in coordination of care (as documented) at patient's floor/unit and/or counseling patient: Plan of Care Discussed with: patient Internal Medicine: Result - Labs CBC & Chem 7: 02/22/19 03:35 02/22/19 03:35 Labs: Short CBC 02/22/19 Range/Units 03:35 WBC 9.5 (4.3-11.1) K/mcL Hgb 10.9 L (11.5-15.4) g/dL Hct 34.8 L (35.3-44.9) % Plt Count 115 L (140-400) K/mcL BMP 02/22/19 03:35 Sodium 140 Potassium 3.5 Chloride 105 Carbon Dioxide 29 BUN 15 Creatinine 0.95 Glucose 233 H Calcium 8.8 - ABG Interpretation ABG results: PT/INR, D-dimer PT 11.9 Seconds (9.4-12.1) 02/19/19 04:37 D-Dimer 336 ng/mLFEU (0-500) 02/18/19 19:26 - Impressions Impressions Thoracic Spine CT 02/21/19 16:29 IMPRESSION: 1. Stable appearance of the thoracic spine with no fracture or listhesis. 2. Mild degenerative changes throughout the thoracic spine. 3. Right paramedian posterior disc osteophyte complex and left paramedian disc bulge T9-10 appears to mildly narrow the associated neural foramina, no canal stenosis. D/ / Santi Caban / Santi Caban Interpreting Provider: Santi Caban Consult Discharge Plan - Plan Referrals: Deepak Montes DO [Partnered Physician] - 03/03/19 10:45 am Cyndi Estes MD [Partnered Physician] - 08/11/19 10:35 am Tung Larry DO [Partnered Physician] - 05/02/19 8:30 am Mariaelena Vasquez CNP [Advanced Practice Nurse] - 05/20/19 10:40 am (1) Chronic back pain Qualifiers: Back pain location: thoracic back pain Back pain laterality: midline Qualified Code(s): M54.6 - Pain in thoracic spine; G89.29 - Other chronic pain (2) Increased white blood cell count Qualifiers: Leukocytosis type: unspecified Qualified Code(s): D72.829 - Elevated white blood cell count, unspecified (4) Chronic kidney disease Qualifiers: Chronic kidney disease stage: unspecified stage Qualified Code(s): N18.9 - Chronic kidney disease, unspecified (5) Diabetes mellitus Qualifiers: Diabetes mellitus type: type 2 Qualified Code(s): E11.9 - Type 2 diabetes mellitus without complications (7) UTI (urinary tract infection) Qualifiers: Urinary tract infection type: site unspecified Hematuria presence: without hematuria Qualified Code(s): N39.0 - Urinary tract infection, site not specified
--- NOTE | 2019-02-22 15:50 | Electrocardiograph Report ---
[place] [id number] Test Date: 2019-02-18 Pat Name: Carmen Vargas Department: [id number] Room: 3B47 Gender: F Court Clerk: : 1950 Requested By: Yanick Isaac Order Number: [id number] Reading MD: Sal Elizabeth Measurements Intervals [place] Rate: 85 P: 70 SC: 133 QRS: 61 QRSD: 96 T: 52 QT: 389 QTc: 463 Interpretive Statements Sinus rhythm Multiple premature complexes, vent & supraven Probable anteroseptal infarct, old Electronically Signed On 02-22-2019 15:48:42 EDT by Sal Elizabeth
--- NOTE | 2019-02-22 15:56 | Electrocardiograph Report ---
[place] [id number] Test Date: 2019-02-21 Pat Name: Carmen Vargas Department: 113 Room: 3B Gender: F Prop Cutter: : 1950 Requested By: Tej Pedraza Order Number: [id number] Reading MD: Sal Elizabeth Measurements Intervals [place] Rate: 73 P: 25 [place]: 133 QRS: 38 QRSD: 102 T: 25 QT: 387 QTc: 413 Interpretive Statements SINUS RHYTHM Electronically Signed On 02-22-2019 15:54:22 EDT by Sal Elizabeth
[2019-02-22] MEDS: Insulin DETEMIR 100 UNIT/ML X5UNITS SQ SCH (21:34)
[2019-02-23] MEDS: *HR* OxyCODONE/APAP 5/325 TABLET PO SCH ×3 (02:48→08:47)
[2019-02-23] MEDS: *HR* Heparin 5,000 UNIT/ML VIAL SQ SCH (06:24)
[2019-02-23 07:32] LABS: BUN/Creatinine Ratio 20 (6-26); Blood Urea Nitrogen 17 mg/dL (8-23); Carbon Dioxide 27 mEq/L (23-29); Chloride 103 mEq/L (98-107); Glucose 201 mg/dL (70-105); Osmolality,Calculated 297 (280-300); Potassium 3.6 mEq/L (3.5-5.1); Sodium 140 mEq/L (136-145); eGFR For African Americans > 60 (> 60); eGFR For Non-African Americans > 60 (> 60)
[2019-02-23 07:34] LABS: Hematocrit 37.6 % (35.3-44.9); Hemoglobin 12.1 g/dL (11.5-15.4); Mean Corpuscular HGB Conc 32.2 g/dL (31.6-35.5); Mean Corpuscular Hemoglobin 29.2 pg (28.0-33.3); Mean Corpuscular Volume 90.8 fL (83.0-100.0); Mean Platelet Volume 11.1 fL (9.4-12.4); Platelet Count 112 K/mcL (140-400); Red Blood Count 4.14 M/mcL (3.82-4.97); Red Cell Distribution Width 14.8 % (11.5-14.5); White Blood Count 12.5 K/mcL (4.3-11.1)
[2019-02-23 07:40] VITALS: BP 147/74
[2019-02-23] MEDS: cefTRIAXone 1,000 MG in Water for inj. (sterile) 10 ML IVP SCH (08:32)
[2019-02-23] MEDS: Cyanocobalamin (B-12) 1,000 MCG TABLET PO SCH (08:32)
[2019-02-23] MEDS: Ascorbic Acid 500 MG TABLET PO SCH (08:32)
[2019-02-23] MEDS: Aspirin 81 MG TAB.CHEW PO SCH (08:32)
[2019-02-23] MEDS: Pregabalin 50 MG CAPSULE PO SCH (08:32)
[2019-02-23] MEDS: *HR* Promethazine 25 MG/ML VIAL IVP PRN (08:48)
[2019-02-23] MEDS: Insulin LISPRO 300 UNITS/3 ML VIAL SQ SCH (08:48)
[2019-02-23 09:33] LABS: Troponin I < 0.03 ng/mL (< 0.04)
--- NOTE | 2019-02-23 10:43 | Discharge Summary ---
- NOTES TO OUTPATIENT PROVIDER Notes to Outpatient Provider: Patient was hospitalized due to chest pain. CTA chest was negative for aortic dissection. Patient had a cardiac workup done including left heart catheterization. C did not show any stenotic coronary artery disease. Recent chest pain is chronic and reproducible. Patient will be discharged to correction facility. Patient is to follow up with her pain management doctor outpatient and her oncology outpatient. Orders not resulted at time of discharge: Pending orders 02/18/19 22:26 Blood Culture [Culture,Blood] [BC] Stat Estimated PT Needs at Discharge: SNF/ECF Date of Encounter: 02/23/19 Time of Encounter: 10:41 - Discharge Diagnosis (1) UTI (urinary tract infection) Priority: Primary Status: Acute Qualifiers: Urinary tract infection type: site unspecified Hematuria presence: without hematuria Qualified Code(s): N39.0 - Urinary tract infection, site not specified (2) Chest pain Priority: Secondary Status: Acute Qualifiers: Chest pain type: unspecified Qualified Code(s): R07.9 - Chest pain, unspecified (3) Increased white blood cell count Priority: Secondary Status: Acute Qualifiers: Leukocytosis type: unspecified Qualified Code(s): D72.829 - Elevated white blood cell count, unspecified (4) Thrombocytopenia Priority: Secondary Status: Chronic (5) Chronic kidney disease Priority: Secondary Status: Chronic Qualifiers: Chronic kidney disease stage: unspecified stage Qualified Code(s): N18.9 - Chronic kidney disease, unspecified (6) Diabetes mellitus Priority: Secondary Status: Chronic Qualifiers: Diabetes mellitus type: type 2 Qualified Code(s): E11.9 - Type 2 diabetes mellitus without complications (7) Chronic back pain Priority: Secondary Status: Acute Qualifiers: Back pain location: thoracic back pain Back pain laterality: midline Qualified Code(s): M54.6 - Pain in thoracic spine; G89.29 - Other chronic pain (8) CLL (chronic lymphocytic leukemia) Priority: Secondary Status: Chronic Hospital course: Ms. Vargas is a 68 year old female with past medical history off CLL currently not on any treatment, hypertension, COPD with when necessary home oxygen, diabetes, renal disease, gastroesophageal reflux disease, and chronic back pain and depression was hospitalized due to chest pain. CTA chest was negative for aortic dissection. Patient had a cardiac workup done including left heart catheterization. LHC did not show any stenotic coronary artery disease. Recent chest pain is chronic and reproducible. Patient will be discharged in stable condition to correction facility. We will prescribe oxycodone 10 mg every 6 hours as needed for pain and Lyrica. Patient is to follow up with her pain management doctor outpatient and her oncology outpatient. Discharge discussed with: patient, family, nurse, social work, case management - Time Spent with Patient Total time spent providing and/or coordinating discharge services: 35 Time spent: Greater than 30 minutes - Discharge Medications Prescriptions: Continued Primidone [Mysoline] 50 mg PO HS Ascorbic Acid [Vitamin C] 500 mg PO DAILY Cyanocobalamin (Vitamin B-12) [Vitamin B-12] 500 mcg PO DAILY Linagliptin [Tradjenta] 5 mg PO DAILY Atorvastatin [Lipitor] 40 mg PO HS Furosemide [Lasix] 20 mg PO DAILY PRN PRN Reason: Edema Metoclopramide [Reglan] 10 mg PO TID Loperamide [Imodium] 2 mg PO BID Doxepin HCl 20 mg PO HS Insulin LISPRO [Humalog Kwikpen U-100] 0 unit SQ QIDAC Aspirin 81 mg PO DAILY tab.chew Sucralfate [Carafate] 1 gm PO QIDAC udc Docusate [Colace] 100 mg PO DAILY capsule Ferrous Sulfate 325 mg PO DAILY tablet Metoprolol [Lopressor] 25 mg PO DAILY Omeprazole [PriLOSEC] 40 mg PO DAILY Pioglitazone [Actos] 15 mg PO DAILY Pregabalin [Lyrica] 100 mg PO TID 7 Days #21 capsule Changed Oxycodone HCl/Acetaminophen [Percocet 5-325 mg Tablet] 2 tab PO Q6HR PRN 7 Days #30 tablet PRN Reason: Pain Home Medications: Primidone [Mysoline] 50 mg PO HS 02/28/16 [History] Ascorbic Acid [Vitamin C] 500 mg PO DAILY 03/06/16 [History] Cyanocobalamin (Vitamin B-12) [Vitamin B-12] 500 mcg PO DAILY 05/06/17 [History] Linagliptin [Tradjenta] 5 mg PO DAILY 05/06/17 [History] Atorvastatin [Lipitor] 40 mg PO HS 12/06/17 [History] Furosemide [Lasix] 20 mg PO DAILY PRN 01/16/18 [History] Loperamide [Imodium] 2 mg PO BID 06/17/18 [History] Metoclopramide [Reglan] 10 mg PO TID 06/17/18 [History] Doxepin HCl 20 mg PO HS 12/15/18 [History] Insulin LISPRO [Humalog Kwikpen U-100] 0 unit SQ QIDAC 12/15/18 [History] Aspirin 81 mg PO DAILY tab.chew 12/18/18 [Rx] Docusate [Colace] 100 mg PO DAILY capsule 12/18/18 [Rx] Ferrous Sulfate 325 mg PO DAILY tablet 12/18/18 [Rx] Sucralfate [Carafate] 1 gm PO QIDAC udc 12/18/18 [Rx] Metoprolol [Lopressor] 25 mg PO DAILY 02/18/19 [History] Omeprazole [PriLOSEC] 40 mg PO DAILY 02/18/19 [History] Pioglitazone [Actos] 15 mg PO DAILY 02/18/19 [History] Oxycodone HCl/Acetaminophen [Percocet 5-325 mg Tablet] 2 tab PO Q6HR PRN 7 Days #30 tablet 02/23/19 [Rx] Pregabalin [Lyrica] 100 mg PO TID 7 Days #21 capsule 02/23/19 [Rx] Allergies/Adverse Reactions: Allergy/AdvReac Type Severity Reaction Status Date / Time metformin Allergy Nausea Verified 12/14/18 00:45 Sulfa (Sulfonamide Allergy Nausea Verified 12/14/18 00:45 Antibiotics) sulfamethoxazole Allergy Nausea Verified 12/14/18 00:45 [From Bactrim] trimethoprim [From Bactrim] Allergy Nausea Verified 12/14/18 00:45 Date of admission: 02/21/19 14:12 Primary care physician: PCP NONE Consults: 02/19/19 04:34 Consult to Cardiology [CONS] Routine Comment: Consulting Provider: [facility] [place] Reason for Consult: Presents for chest pain improved with nitro and pain medications. ER reviewed EKG with Dr Celestin for concerns of ST change in V1. Pain was recurrent so put on nitro paste and started heparin drip. Call Completed: No 02/19/19 12:30 Consult to Pain Management [CONS] Routine Consulting Provider: Pain Mgt Interventional [place] Reason for Consult: chronic back pain, had previous left L5 Dorsal Ramus, S1, S2 and S3 Lateral Branch Radiofrequency Neurolysis. Pain is out of proportion to physical exam Call Completed: No 02/19/19 15:51 Consult to Oncology Hematology [CONS] Routine Consulting Provider: Ventura Lopez Reason for Consult: Hx of CLL, CT with Axillary, abdominal, and pelvic adenopathy. Findings overall are slightly increased. Call Completed: No Discharging clinician: Higinio Gutierrez - Constitutional Vitals: Temp Pulse Resp BP Pulse Ox 98.0 F 75 15 147/74 94 02/23/19 07:32 02/23/19 07:32 02/23/19 07:32 02/23/19 07:32 02/23/19 07:32 General appearance: Present: cooperative, A&O X 3 Exam: General: Alert and oriented. mild distress. Skin: Normal color, no rash, no lesions. HEENT:Pupils equal, round and reactive. Cardiovascular: Heart sounds distant, no rubs, murmurs or gallops. Reproducible chest pain on left 4-5th ICS Lungs:Breath sounds decreased, no wheezes or crackles. Abdomen:Soft, non-tender, no rigidity. Extremities:No deformity, tenderness, joint swelling or clubbing. Non pitting edema noted to bilateral lower extremities. Neurological:Normal cognition and motor skills. Pulses:Carotid and radial pulses normal +2. - Patient Status Disposition: Transfer SNF Condition: Good Functional capacity at discharge: uses cane/walker Overall status at discharge: patient is progressing back to baseline - Discharge Instructions Instructions: Chest Pain (DC), Chronic Back Pain, Broker (GEN) Follow Up With: Deepak Montes DO [Partnered Physician] - 03/03/19 10:45 am Cyndi Estes MD [Partnered Physician] - 08/11/19 10:35 am Tung Larry DO [Partnered Physician] - 05/02/19 8:30 am Mariaelena Vasquez CNP [Advanced Practice Nurse] - 05/20/19 10:40 am - Diet and Activity Activity: increase activity as tolerated Diet: advance to your usual diet, diabetic diet, low salt diet
--- NOTE | 2019-02-23 10:53 | Physician Discharge Referral ---
ExtendedCare Referral Info Transfer To: [facility] Provider in Charge after Transfer: PCP - Diagnosis (1) UTI (urinary tract infection) Priority: Primary Status: Acute (2) Chest pain Priority: Secondary Status: Acute (3) Increased white blood cell count Priority: Secondary Status: Acute (4) Thrombocytopenia Priority: Secondary Status: Chronic (5) Chronic kidney disease Priority: Secondary Status: Chronic (6) Diabetes mellitus Priority: Secondary Status: Chronic (7) Chronic back pain Priority: Secondary Status: Acute (8) CLL (chronic lymphocytic leukemia) Priority: Secondary Status: Chronic Prognosis: Good Aware of Diagnosis: Patient Aware of Prognosis: Patient - Transfer Medications Prescriptions: Pregabalin [Lyrica] 100 mg PO TID 7 Days #21 capsule Oxycodone HCl/Acetaminophen [Percocet 5-325 mg Tablet] 2 tab PO Q6HR PRN 7 Days #30 tablet PRN Reason: Pain Home Medications: Primidone [Mysoline] 50 mg PO HS 02/28/16 [History] Ascorbic Acid [Vitamin C] 500 mg PO DAILY 03/06/16 [History] Cyanocobalamin (Vitamin B-12) [Vitamin B-12] 500 mcg PO DAILY 05/06/17 [History] Linagliptin [Tradjenta] 5 mg PO DAILY 05/06/17 [History] Atorvastatin [Lipitor] 40 mg PO HS 12/06/17 [History] Furosemide [Lasix] 20 mg PO DAILY PRN 01/16/18 [History] Loperamide [Imodium] 2 mg PO BID 06/17/18 [History] Metoclopramide [Reglan] 10 mg PO TID 06/17/18 [History] Doxepin HCl 20 mg PO HS 12/15/18 [History] Insulin LISPRO [Humalog Kwikpen U-100] 0 unit SQ QIDAC 12/15/18 [History] Aspirin 81 mg PO DAILY tab.chew 12/18/18 [Rx] Docusate [Colace] 100 mg PO DAILY capsule 12/18/18 [Rx] Ferrous Sulfate 325 mg PO DAILY tablet 12/18/18 [Rx] Sucralfate [Carafate] 1 gm PO QIDAC udc 12/18/18 [Rx] Metoprolol [Lopressor] 25 mg PO DAILY 02/18/19 [History] Omeprazole [PriLOSEC] 40 mg PO DAILY 02/18/19 [History] Pioglitazone [Actos] 15 mg PO DAILY 02/18/19 [History] Oxycodone HCl/Acetaminophen [Percocet 5-325 mg Tablet] 2 tab PO Q6HR PRN 7 Days #30 tablet 02/23/19 [Rx] Pregabalin [Lyrica] 100 mg PO TID 7 Days #21 capsule 02/23/19 [Rx] Allergies/Adverse Reactions: Allergy/AdvReac Type Severity Reaction Status Date / Time metformin Allergy Nausea Verified 12/14/18 00:45 Sulfa (Sulfonamide Allergy Nausea Verified 12/14/18 00:45 Antibiotics) sulfamethoxazole Allergy Nausea Verified 12/14/18 00:45 [From Bactrim] trimethoprim [From Bactrim] Allergy Nausea Verified 12/14/18 00:45 - Respiratory Orders Oxygen / L per min (2l /min PRN) Smoking Cessation: Smoking cessation has been advised. For more information, call the [email or web address] Quit Line at 1-934-ZUOI-NOW. - Ancillary Orders May use pressure relief devices daily prn - Advance Directives Code Status: Full Code - Mobility Orders Ambulate - Rehabiliation Orders Rehab Potential: Good Rehab Orders: ROM Exercises, Evaluation for Physical Therapy, Evaluation for Occupational Therapy - Diet Orders No Added Salt (AMELIA), Cardiac CERTIFICATION: I certify that the transfer of the above named patient to an Extended Care Facility is necessary for the continuing treatment of the diagnosis listed. The above information is true and accurate reflection of patient's current condition. Confidential - Redisclosure prohibited without a patient's written consent.
--- NOTE | 2019-02-25 08:52 | Electrocardiograph Report ---
[place] [id number] Test Date: 2019-02-19 Pat Name: Carmen Vargas Department: 113 Room: [facility] Gender: F Gravel Weigher: VIKTORIYA : 1950 Requested By: Abiodun Dobson Order Number: [id number] Reading MD: Gaby Carbone Measurements Intervals [place] Rate: 90 P: 64 AK: 134 QRS: 47 QRSD: 101 T: 45 QT: 359 QTc: 406 Interpretive Statements SINUS RHYTHM WITH OCCASIONAL SUPRAVENTRICULAR PREMATURE COMPLEXES POOR R WAVE PROGRESSION Electronically Signed On 02-25-2019 8:51:06 EDT by aGby Carbone
== END 2019-02-23 12:32 | DRG 287 ==
LOC: 3BNU 19:08 → EMEROOARM 19:08 → SUATTDRO 02-19 00:09 → 3BNU 02-19 00:23 → SUATTDRO 02-21 14:12
PROVIDERS: ADMIT Internal Medicine; ATTEND Family Medicine